=== PATIENT | female | born 1985 | race Caucasian/White ===

== ENCOUNTER 2022-08-31 11:32 | Outpatient (OUT) | payer OTHER, SELFPAY ==
[2022-08-31 11:19] LABS: Basophils Percent Auto 0.4 % (0.2-2.0); Eosinophils Absolute Auto 0.1 10^3/uL (0.0-0.7); Eosinophils Percent Auto 0.8 % (0.9-7.0); Hematocrit 37.4 % (36.0-48.0); Hemoglobin 12.3 g/dL (12.0-16.0); Immature Granulocytes Abs Auto 0.05 10^3/uL (0.00-0.03); Immature Granulocytes Pct Auto 0.5 % (0.0-0.5); Lymphocytes Percent Auto 21.4 % (20.5-60.0); Mean Corpuscular HGB Conc 32.9 g/dL (29.9-35.2); Mean Corpuscular Hemoglobin 29.9 pg (26.7-34.0); Mean Platelet Volume 11.6 fL (9.5-13.5); Monocytes Absolute Auto 0.5 10^3/uL (0.3-0.8); Monocytes Percent Auto 5.3 % (1.7-12.0); Neutrophils Absolute Auto 6.8 10^3/uL (1.4-6.5); Neutrophils Percent Auto 71.6 % (43.0-75.0); Platelet Count 248 10^3/uL (150-450); Red Blood Count 4.11 10^6/uL (4.20-5.40); White Blood Count 9.5 10^3/uL (4.0-11.0)
--- NOTE | 2022-08-31 11:34 | US_ITS ---
[place] [id number] Patient Name: TERRENCE BORGES MRN: [id number] date: 1985 Sex: F Assigned Patient Location: US Current Patient Location: US Accession/Order Number: [id number] Exam Date: 08/31/2022 11:33 Report Date: 08/31/2022 17:28 At the request of: IAN BECKHAM Procedure: US OB anatomy EXAMINATION: US OB anatomy, US OB transvaginal HISTORY: ANATOMY COMPARISON: No relevant comparison available. TECHNIQUE: Transabdominal sonographic examination was performed for obstetrical and evaluation. FINDINGS: Rodríguez intrauterine gestation position: Breech presentation, longitudinal lie Amniotic fluid volume: Subjectively normal Placenta: Posterior fundal, grade 1. Cervix: 4 cm, closed Heart rate: 131 beats minute Normal observed anatomy: Lateral ventricles, cerebellum, posterior fossa, nose/lips, orbits, four-chamber heart, diaphragm, stomach, kidneys, abdominal cord insertion, bladder, umbilical cord arteries, spine, extremities Nonvisualized: RVOT, LVOT, three-vessel cord BIOMETRY: BPD: 5.5 cm 22 weeks 6 days, 19% HC: 20.6 cm 22 weeks 5 days, 9% AC: 18.3 cm 23 weeks 1 day, 26% FL: 4.2 cm 23 weeks 6 days, 47% EFW:583.9 grams ; 30% FL/AC: 23.2 FL/BPD: 76.8 HC/AC: 1.1 GESTATIONAL AGE: Age by EDC: 23 weeks 4 days KRANTHI by EDC: 12/24/2022 Age by current US: 23 weeks 1 day KRANTHI by current US: 12/27/2022 IMPRESSION: Suboptimal visualization of the ventricular outflow tracts and three-vessel cord, otherwise normal exam *Reference: [employer] Practice Guideline for the performance of Obstetric Ultrasound Examinations, December 17, 2006. Electronically authenticated by: LEIGH FLEMING Date: 08/31/2022 17:28
--- NOTE | 2022-08-31 11:34 | US_ITS ---
[place] [id number] Patient Name: TERRENCE BORGES MRN: [id number] date: 1985 Sex: F Assigned Patient Location: US Current Patient Location: US Accession/Order Number: [id number] Exam Date: 08/31/2022 11:33 Report Date: 08/31/2022 17:28 At the request of: IAN BECKHAM Procedure: US OB transvaginal EXAMINATION: US OB anatomy, US OB transvaginal HISTORY: ANATOMY COMPARISON: No relevant comparison available. TECHNIQUE: Transabdominal sonographic examination was performed for obstetrical and evaluation. FINDINGS: Rodríguez intrauterine gestation position: Breech presentation, longitudinal lie Amniotic fluid volume: Subjectively normal Placenta: Posterior fundal, grade 1. Cervix: 4 cm, closed Heart rate: 131 beats minute Normal observed anatomy: Lateral ventricles, cerebellum, posterior fossa, nose/lips, orbits, four-chamber heart, diaphragm, stomach, kidneys, abdominal cord insertion, bladder, umbilical cord arteries, spine, extremities Nonvisualized: RVOT, LVOT, three-vessel cord BIOMETRY: BPD: 5.5 cm 22 weeks 6 days, 19% HC: 20.6 cm 22 weeks 5 days, 9% AC: 18.3 cm 23 weeks 1 day, 26% FL: 4.2 cm 23 weeks 6 days, 47% EFW:583.9 grams ; 30% FL/AC: 23.2 FL/BPD: 76.8 HC/AC: 1.1 GESTATIONAL AGE: Age by EDC: 23 weeks 4 days KRANTHI by EDC: 12/24/2022 Age by current US: 23 weeks 1 day KRANTHI by current US: 12/27/2022 IMPRESSION: Suboptimal visualization of the ventricular outflow tracts and three-vessel cord, otherwise normal exam *Reference: [employer] Practice Guideline for the performance of Obstetric Ultrasound Examinations, December 17, 2006. Electronically authenticated by: LEIGH FLEMING Date: 08/31/2022 17:28
[2022-08-31 11:39] LABS: Glucose 1 Hour 101 mg/dL
== END 2022-08-31 11:33 ==
LOC: US 11:33
PROVIDERS: PCP Student in an Organized Health Care Education/Training Program; Visit Provider Obstetrics & Gynecology
DX: Z34.92 Encounter for supervision of normal pregnancy, unspecified, second trimester (principal)
CPT/HCPCS: 36415; 76805; 76817; 82950; 85025

== ENCOUNTER 2022-09-27 11:42 | Outpatient (OUT) | payer OTHER, SELFPAY ==
--- NOTE | 2022-09-27 11:48 | US_ITS ---
The [address] [address] Patient Name: TERRENCE BORGES MRN: [id number] date: 1985 Sex: F Assigned Patient Location: US Current Patient Location: US Accession/Order Number: [id number] Exam Date: 09/27/2022 11:48 Report Date: 09/27/2022 16:32 At the request of: IAN BECKHAM Procedure: US OB incomplete anatomy EXAMINATION: US OB incomplete anatomy HISTORY: INCOMPLETE ANATOMY COMPARISON: Ultrasound OB anatomy 08/31/2022 FINDINGS: Heart rate: 127 bpm Anatomy: RVOT, LVOT, three-vessel cord seen without appreciable abnormality. GA: 27 weeks 3 days KRANTHI: 12/24/2022 US/US OB incomplete anatomy IMPRESSION: 1. Single live intrauterine . 2. Adequate visualization of the cardiac outflow tracts and three-vessel cord; no appreciable abnormality. Electronically authenticated by: PHILLIP GUAN Date: 09/27/2022 16:32
== END 2022-09-27 11:43 | disposition home or self-care (01) ==
LOC: US 11:44
PROVIDERS: PCP Student in an Organized Health Care Education/Training Program; Visit Provider Obstetrics & Gynecology
DX: Z34.92 Encounter for supervision of normal pregnancy, unspecified, second trimester (principal); Z36.2 Encounter for other antenatal screening follow-up
CPT/HCPCS: 76815

== ENCOUNTER 2022-10-31 13:54 | Outpatient (OUT) | payer OTHER, SELFPAY ==
--- NOTE | 2022-10-31 14:03 | US_ITS ---
[address] [address] Patient Name: TERRENCE BORGES MRN: [id number] date: 1985 Sex: F Assigned Patient Location: [facility] Current Patient Location: Accession/Order Number: [id number] Exam Date: 10/31/2022 14:05 Report Date: 10/31/2022 15:44 At the request of: JORDYN ESPINOZA Procedure: US OB BPP w non-stress EXAMINATION: US OB BPP w non-stress HISTORY: Third trimester Z34.93 COMPARISON: Ultrasound OB anatomy 08/31/2022 TECHNIQUE: Ultrasound biophysical profile was performed in the radiology department. BREATHING MOVEMENTS: 2.0 GROSS BODY MOVEMENTS: 2.0 TONE: 2.0 QUALITATIVE AMNIOTIC FLUID VOLUME: 2.0 PRESENTATION: Cephalic HEART RATE: 166.7 bpm bpm. AMNIOTIC FLUID VOLUME: 12.0 cm GESTATIONAL AGE: 33 weeks 1 days CONCLUSION: Total biophysical profile score 8.0. Electronically authenticated by: PHILLIP GUAN Date: 10/31/2022 15:44
[2022-10-31 14:23] VITALS: BP 107/69; PULSE 95
== END 2022-10-31 14:49 | disposition home or self-care (01) ==
LOC: US 13:54 → FBC 14:00 → US 14:14 → FBC 14:16
PROVIDERS: PCP Student in an Organized Health Care Education/Training Program; Visit Provider Midwife
DX: Z34.93 Encounter for supervision of normal pregnancy, unspecified, third trimester (principal)
CPT/HCPCS: 76818

== ENCOUNTER 2022-11-03 14:15 | Outpatient (OUT) | payer OTHER, SELFPAY ==
[2022-11-03 14:28] VITALS: BP 114/55; PULSE 89
== END 2022-11-03 14:45 | disposition home or self-care (01) ==
LOC: FBCO 14:17 → FBC 14:19
PROVIDERS: PCP Student in an Organized Health Care Education/Training Program; Visit Provider Obstetrics & Gynecology
DX: Z34.93 Encounter for supervision of normal pregnancy, unspecified, third trimester (principal)
CPT/HCPCS: 59025

== ENCOUNTER 2022-11-07 14:00 | Outpatient (OUT) | payer OTHER, SELFPAY ==
--- NOTE | 2022-11-07 14:04 | US_ITS ---
[address] [address] Patient Name: TERRENCE BORGES MRN: [id number] date: 1985 Sex: F Assigned Patient Location: US Current Patient Location: [facility] Accession/Order Number: [id number] Exam Date: 11/07/2022 14:06 Report Date: 11/07/2022 15:11 At the request of: JORDYN ESPINOZA Procedure: US OB BPP w non-stress EXAMINATION: US OB BPP w non-stress HISTORY: Third trimester Z34.93 COMPARISON: Ultrasound OB biophysical 10/31/2022 TECHNIQUE: Ultrasound biophysical profile was performed in the radiology department. BREATHING MOVEMENTS: 2.0 GROSS BODY MOVEMENTS: 2.0 TONE: 2.0 QUALITATIVE AMNIOTIC FLUID VOLUME: 2.0 PRESENTATION: CEPHALIC HEART RATE: 139.9 bpm bpm. AMNIOTIC FLUID VOLUME: 11.8 cm GESTATIONAL AGE: 34 weeks 1 days CONCLUSION: Total biophysical profile score 8.0. Electronically authenticated by: PHILLIP GUAN Date: 11/07/2022 15:11
[2022-11-07 14:29] VITALS: BP 111/63; PULSE 85
== END 2022-11-07 15:10 | disposition home or self-care (01) ==
LOC: US 14:26 → FBC 14:27
PROVIDERS: PCP Student in an Organized Health Care Education/Training Program; Visit Provider Physician Assistant
DX: Z34.93 Encounter for supervision of normal pregnancy, unspecified, third trimester (principal)
CPT/HCPCS: 76818

== ENCOUNTER 2022-11-08 10:36 | Outpatient (OUT) | payer OTHER, SELFPAY ==
--- NOTE | 2022-11-08 10:38 | US_ITS ---
[address] [address] Patient Name: TERRENCE BORGES MRN: [id number] date: 1985 Sex: F Assigned Patient Location: US Current Patient Location: US Accession/Order Number: [id number] Exam Date: 11/08/2022 10:38 Report Date: 11/08/2022 16:05 At the request of: JORDYN ESPINOZA Procedure: US OB growth EXAMINATION: US OB growth HISTORY: LGA COMPARISON: Ultrasound OB anatomy 08/31/2022 FINDINGS: Heart Rate: 140.0 bpm Number: 1.0 Position: CEPHALIC Amniotic Fluid Volume: 14.6 cm Maximum Vertical Pocket: 5.1 cm BIOMETRY: BPD: 8.2 cm cm; 33 weeks 1 days; 36% HC: 30.7 cmcm; 34 weeks 2 days; 34% AC: 28.2 cm cm; 32 weeks 2 days; 20% FL: 6.3 cm cm; 32 weeks 3 days; 16% EFW: 2005.8 grams; 19% FL/AC: 22.2 FL/BPD: 76.0 HC/AC: 1.1 GESTATIONAL AGE: Age by EDC: 33 weeks 3 days KRANTHI by EDC: 12/24/2022 Age by US: 33 weeks 0 days KRANTHI by US: 12/27/2022 US/US OB growth IMPRESSION: 1. Single live intrauterine with growth detailed above. Electronically authenticated by: PHILLIP GUAN Date: 11/08/2022 16:05
== END 2022-11-08 10:37 | disposition home or self-care (01) ==
LOC: US 10:36
PROVIDERS: PCP Student in an Organized Health Care Education/Training Program; Visit Provider Physician Assistant
DX: O36.63X0 Maternal care for excessive fetal growth, third trimester, not applicable or unspecified (principal); Z3A.33 33 weeks gestation of pregnancy
CPT/HCPCS: 76816

== ENCOUNTER 2022-11-14 13:05 | Outpatient (OUT) | payer OTHER, SELFPAY ==
--- NOTE | 2022-11-14 13:13 | US_ITS ---
[address] [address] Patient Name: TERRENCE BORGES MRN: [id number] date: 1985 Sex: F Assigned Patient Location: [facility] Current Patient Location: [facility] Accession/Order Number: [id number] Exam Date: 11/14/2022 13:14 Report Date: 11/14/2022 15:19 At the request of: IAN BECKHAM Procedure: US OB BPP w non-stress EXAMINATION: US OB BPP w non-stress HISTORY: Third trimester Z34.93 COMPARISON: Ultrasound OB biophysical 11/07/2022 TECHNIQUE: Ultrasound biophysical profile was performed in the radiology department. BREATHING MOVEMENTS: 2.0 GROSS BODY MOVEMENTS: 2.0 TONE: 2.0 QUALITATIVE AMNIOTIC FLUID VOLUME: 2.0 PRESENTATION: CEPHALIC HEART RATE: 133.7 bpm bpm. AMNIOTIC FLUID VOLUME: 13.2 cm GESTATIONAL AGE: 35 weeks 1 days CONCLUSION: Total biophysical profile score 8.0. Electronically authenticated by: PIHLLIP GUAN Date: 11/14/2022 15:19
[2022-11-14 13:41] VITALS: BP 116/73; PULSE 90
== END 2022-11-14 14:05 | disposition home or self-care (01) ==
LOC: US 13:12 → FBC 13:13
PROVIDERS: PCP Student in an Organized Health Care Education/Training Program; Visit Provider Midwife
DX: Z34.93 Encounter for supervision of normal pregnancy, unspecified, third trimester (principal)
CPT/HCPCS: 76818

== ENCOUNTER 2022-11-21 13:00 | Outpatient (OUT) | payer OTHER, SELFPAY ==
--- NOTE | 2022-11-21 13:06 | US_ITS ---
[address] [address] Patient Name: TERRENCE BORGES MRN: [id number] date: 1985 Sex: F Assigned Patient Location: [facility] Current Patient Location: Accession/Order Number: [id number] Exam Date: 11/21/2022 13:08 Report Date: 11/21/2022 17:37 At the request of: IAN BECKHAM Procedure: US OB BPP w non-stress EXAMINATION: US OB BPP w non-stress HISTORY: Third trimester Z34.93 COMPARISON: No relevant comparison available. TECHNIQUE: Ultrasound biophysical profile was performed in the radiology department. FINDINGS: BREATHING MOVEMENTS: 0.0 GROSS BODY MOVEMENTS: 2.0 TONE: 2.0 QUALITATIVE AMNIOTIC FLUID VOLUME: 2.0 PRESENTATION: CEPHALIC HEART RATE: 129.2 bpm H.B./min AMNIOTIC FLUID VOLUME: 12.3 cm cm GESTATIONAL AGE: 36 weeks 1 days CONCLUSION: Total biophysical profile score: 6.0 Electronically authenticated by: LEIGH FLEMING Date: 11/21/2022 17:37
[2022-11-21 13:55] VITALS: BP 111/66; PULSE 83
== END 2022-11-21 14:28 | disposition home or self-care (01) ==
LOC: US 13:09 → FBC 13:13
PROVIDERS: PCP Student in an Organized Health Care Education/Training Program; Visit Provider Obstetrics & Gynecology
DX: Z34.93 Encounter for supervision of normal pregnancy, unspecified, third trimester (principal)
CPT/HCPCS: 76818

== ENCOUNTER 2022-11-24 12:46 | Outpatient (OUT) | payer OTHER, SELFPAY ==
--- NOTE | 2022-11-24 12:58 | US_ITS ---
[address] [address] Patient Name: TERRENCE BORGES MRN: [id number] date: 1985 Sex: F Assigned Patient Location: [facility] Current Patient Location: [facility] Accession/Order Number: [id number] Exam Date: 11/24/2022 13:30 Report Date: 11/24/2022 13:54 At the request of: MIKEY CAREY Procedure: US OB BPP w non-stress EXAMINATION: US OB BPP w non-stress HISTORY: LGA COMPARISON: Ultrasound OB biophysical 11/21/2022 TECHNIQUE: Ultrasound biophysical profile was performed in the radiology department. BREATHING MOVEMENTS: 2.0 GROSS BODY MOVEMENTS: 2.0 TONE: 2.0 QUALITATIVE AMNIOTIC FLUID VOLUME: 2.0 PRESENTATION: CEPHALIC HEART RATE: 166.7 bpm bpm. AMNIOTIC FLUID VOLUME: 13.7 cm GESTATIONAL AGE: 36 weeks 4 days CONCLUSION: Total biophysical profile score 8.0. Electronically authenticated by: PHILLIP GUAN Date: 11/24/2022 13:54
[2022-11-24 13:14] VITALS: BP 120/79; PULSE 75
== END 2022-11-24 13:45 | disposition home or self-care (01) ==
LOC: FBCO 12:52 → FBC 12:56
PROVIDERS: PCP Student in an Organized Health Care Education/Training Program; Visit Provider Midwife
DX: O36.63X0 Maternal care for excessive fetal growth, third trimester, not applicable or unspecified (principal); Z3A.36 36 weeks gestation of pregnancy
CPT/HCPCS: 76818

== ENCOUNTER 2022-11-28 11:15 | Outpatient (OUT) | payer OTHER, SELFPAY ==
--- NOTE | 2022-11-28 13:02 | US_ITS ---
[address] [address] Patient Name: TERRENCE BORGES MRN: [id number] date: 1985 Sex: F Assigned Patient Location: [facility] Current Patient Location: Accession/Order Number: [id number] Exam Date: 11/28/2022 13:05 Report Date: 11/29/2022 07:14 At the request of: IAN BECKHAM Procedure: US OB BPP w non-stress EXAMINATION: US OB BPP w non-stress HISTORY: Third trimester Z34.93 COMPARISON: No relevant comparison available. TECHNIQUE: Ultrasound biophysical profile was performed in the radiology department. non-reactive stress testing was performed by nursing staff in the birthing center. FINDINGS: BREATHING MOVEMENTS: 2.0 GROSS BODY MOVEMENTS: 2.0 TONE: 2.0 QUALITATIVE AMNIOTIC FLUID VOLUME: 2.0 PRESENTATION: CEPHALIC HEART RATE: 130.4 bpm H.B./min AMNIOTIC FLUID VOLUME: 10.5 cm cm GESTATIONAL AGE: 37 weeks 1 days CONCLUSION: Total biophysical profile score: 8.0 Electronically authenticated by: LEIGH FLEMING Date: 11/29/2022 07:14
[2022-11-28 13:40] VITALS: BP 126/79; PULSE 80
== END 2022-11-28 14:25 | disposition home or self-care (01) ==
LOC: US 11:40 → FBC 13:09
PROVIDERS: PCP Student in an Organized Health Care Education/Training Program; Visit Provider Obstetrics & Gynecology
DX: Z34.93 Encounter for supervision of normal pregnancy, unspecified, third trimester (principal)
CPT/HCPCS: 76818

== ENCOUNTER 2022-11-30 20:07 | Outpatient (REF) | payer OTHER, SELFPAY | END 2022-11-30 20:08 | disposition home or self-care (01) | LOC: LAB 20:07 | PROVIDERS: PCP Student in an Organized Health Care Education/Training Program; Visit Provider Obstetrics & Gynecology | DX: Z34.93 Encounter for supervision of normal pregnancy, unspecified, third trimester (principal) | CPT/HCPCS: 87081 ==

== ENCOUNTER 2022-12-01 09:05 | Outpatient (OUT) | payer OTHER, SELFPAY ==
[2022-12-01 12:59] VITALS: BP 137/84; PULSE 90
== END 2022-12-01 13:30 | disposition home or self-care (01) ==
LOC: FBCO 09:06 → FBC 12:55
PROVIDERS: PCP Student in an Organized Health Care Education/Training Program; Visit Provider Obstetrics & Gynecology
DX: Z34.93 Encounter for supervision of normal pregnancy, unspecified, third trimester (principal)
CPT/HCPCS: 59025

== ENCOUNTER 2022-12-05 13:18 | Outpatient (OUT) | payer OTHER, SELFPAY ==
--- NOTE | 2022-12-05 12:59 | US_ITS ---
[address] [address] Patient Name: TERRENCE BORGES MRN: [id number] date: 1985 Sex: F Assigned Patient Location: US Current Patient Location: Accession/Order Number: [id number] Exam Date: 12/05/2022 13:00 Report Date: 12/05/2022 16:12 At the request of: IAN BECKHAM Procedure: US OB BPP w non-stress EXAMINATION: US OB BPP w non-stress HISTORY: Third trimester Z34.93 COMPARISON: Ultrasound OB biophysical 11/28/2022 TECHNIQUE: Ultrasound biophysical profile was performed in the radiology department. BREATHING MOVEMENTS: 2.0 GROSS BODY MOVEMENTS: 2.0 TONE: 2.0 QUALITATIVE AMNIOTIC FLUID VOLUME: 2.0 PRESENTATION: CEPHALIC HEART RATE: 140.6 bpm bpm. AMNIOTIC FLUID VOLUME: 13.3 cm GESTATIONAL AGE: 37 weeks 2 days CONCLUSION: Total biophysical profile score 8.0. Electronically authenticated by: PHILLIP GUAN Date: 12/05/2022 16:12
[2022-12-05 13:23] VITALS: BP 120/78; PULSE 110
== END 2022-12-05 13:50 | disposition home or self-care (01) ==
LOC: US 13:19 → FBC 13:20
PROVIDERS: PCP Student in an Organized Health Care Education/Training Program; Visit Provider Obstetrics & Gynecology
DX: Z34.93 Encounter for supervision of normal pregnancy, unspecified, third trimester (principal)
CPT/HCPCS: 76818

== ENCOUNTER 2022-12-15 08:27 | Outpatient (OUT) | payer OTHER, SELFPAY ==
--- NOTE | 2022-12-15 08:26 | US_ITS ---
[address] [address] Patient Name: TERRENCE BORGES MRN: [id number] date: 1985 Sex: F Assigned Patient Location: [facility] [place] Current Patient Location: Accession/Order Number: [id number] Exam Date: 12/15/2022 08:27 Report Date: 12/15/2022 15:11 At the request of: IAN BECKHAM Procedure: US OB BPP w non-stress EXAMINATION: US OB BPP w non-stress HISTORY: THIRD TRIMESTER Z34.93 COMPARISON: Ultrasound OB biophysical 12/05/2022 TECHNIQUE: Ultrasound biophysical profile was performed in the radiology department. BREATHING MOVEMENTS: 2.0 GROSS BODY MOVEMENTS: 2.0 TONE: 2.0 QUALITATIVE AMNIOTIC FLUID VOLUME: 2.0 PRESENTATION: CEPHALIC HEART RATE: 146.7 bpm bpm. AMNIOTIC FLUID VOLUME: 18.5 cm GESTATIONAL AGE: 38 weeks 5 days CONCLUSION: Total biophysical profile score 8.0. Electronically authenticated by: PHILLIP GUAN Date: 12/15/2022 15:11
== END 2022-12-15 09:27 | disposition home or self-care (01) ==
LOC: FBCO 08:28 → FBC 08:51
PROVIDERS: PCP Student in an Organized Health Care Education/Training Program; Visit Provider Obstetrics & Gynecology
DX: O36.63X0 Maternal care for excessive fetal growth, third trimester, not applicable or unspecified (principal); Z3A.38 38 weeks gestation of pregnancy
CPT/HCPCS: 76818

== ENCOUNTER 2022-12-19 05:44 | Inpatient (IN) | payer OTHER, SELFPAY ==
[2022-12-19] VITALS (42 sets, daily range): BP systolic 82–130; BP diastolic 52–88; PULSE 67–109; RESP 12–20; TEMP 36.1–37.1; O2SAT 97–99
[2022-12-19] MEDS: 0.9 % SODIUM CHLORIDE 1,000 ML 1000 ML IV ×2 (06:28→10:47)
[2022-12-19 06:35] LABS: Basophils Percent Auto 0.3 % (0.2-2.0); Eosinophils Absolute Auto 0.1 10^3/uL (0.0-0.7); Eosinophils Percent Auto 1.1 % (0.9-7.0); Hematocrit 35.3 % (36.0-48.0); Hemoglobin 11.6 g/dL (12.0-16.0); Immature Granulocytes Abs Auto 0.03 10^3/uL (0.00-0.03); Immature Granulocytes Pct Auto 0.3 % (0.0-0.5); Lymphocytes Absolute Auto 2.5 10^3/uL (1.2-3.8); Mean Corpuscular HGB Conc 32.9 g/dL (29.9-35.2); Mean Corpuscular Hemoglobin 30.3 pg (26.7-34.0); Mean Corpuscular Volume 92.2 fL (81.0-99.0); Mean Platelet Volume 11.5 fL (9.5-13.5); Monocytes Absolute Auto 0.6 10^3/uL (0.3-0.8); Neutrophils Absolute Auto 5.7 10^3/uL (1.4-6.5); Neutrophils Percent Auto 63.3 % (43.0-75.0); Platelet Count 250 10^3/uL (150-450); Red Blood Count 3.83 10^6/uL (4.20-5.40); Red Cell Distribution Width 13.5 % (11.0-15.0); White Blood Count 8.9 10^3/uL (4.0-11.0)
[2022-12-19 06:37] LABS: Bilirubin Urine NEGATIVE (NEGATIVE); Blood Urine SMALL (NEGATIVE); Clarity Urine CLEAR (CLEAR); Color Urine LT. YELLOW (YELLOW); Glucose Urine UA NEGATIVE (NEGATIVE); Ketones Urine NEGATIVE (NEGATIVE); Leukocyte Esterase Urine NEGATIVE (NEGATIVE); Nitrite Urine NEGATIVE (NEGATIVE); Protein Urine NEGATIVE (NEG/TRACE); Urobilinogen Urine 0.2 EU/dL (0.2-1.0); pH Urine 6.5 (5.0-9.0)
[2022-12-19 06:43] LABS: Bacteria Urine NONE SEEN #/HPF (NONE SEEN); Cast Seen? NONE SEEN #/LPF (NONE SEEN); Crystals Seen? None Seen #/HPF (None Seen); Mucus Urine SMALL (NONE SEEN); RBC Urine 0-2 #/HPF (0-2); Squamous Epithelial Cell Urine FEW #/LPF (NONE/RARE)
[2022-12-19 06:44] LABS: Urine Culture Indicated NO
[2022-12-19 06:45] LABS: Amphetamine Screen Urine NEGATIVE (NEGATIVE); Barbiturates Screen Urine NEGATIVE (NEGATIVE); Benzodiazepines Screen Urine NEGATIVE (NEGATIVE); Buprenorphine Screen Urine NEGATIVE (NEGATIVE); Cannabinoid Screen Urine NEGATIVE (NEGATIVE); Cocaine Screen Urine NEGATIVE (NEGATIVE); Methadone Screen Urine NEGATIVE (NEGATIVE); Methamphetamines Screen Urine NEGATIVE (NEGATIVE); Opiate Screen Urine NEGATIVE (NEGATIVE); Oxycodone Screen Urine NEGATIVE (NEGATIVE); Phencyclidine Screen Urine NEGATIVE (NEGATIVE); Tricyclic Antidepressant Urine NEGATIVE (NEGATIVE)
[2022-12-19] MEDS: CLINDAMYCIN PHOSPHATE/D5W 900 MG/50 ML PIGGYBACK 100 MG IV ×2 (07:06→12:47)
[2022-12-19] MEDS: 0.9 % SODIUM CHLORIDE 1,000 ML 125 ML IV (07:07)
[2022-12-19] MEDS: LACTATED RINGER'S SOLUTION 1,000 ML 50 ML IV (07:55)
--- NOTE | 2022-12-19 08:17 | PM.OBPRCCS ---
Procedure Pre-op/Post-op diagnoses: Pre-Op/Post-Op Diagnoses Operation Date: 12/19/22 07:00 <No data on this case meets the specified criteria> Procedure: Procedures Operation Date: 12/19/22 07:00 Actual Procedure Side Surgeon p Repeat with Salpingectomy Bilateral Hima Gandhi DO Leveler Helper: Hima Gandhi Estimated blood loss (mL): 575 Disposition: PACU Anesthesia type: Spinal
--- NOTE | 2022-12-19 08:18 | PM.ONB ---
Brief Operative Note Date of procedure: 12/19/22 Pre-op diagnosis: iup at 39wks, previous c/s, desires sterilization Post-op diagnosis: same as pre-op Procedure: NAME OF PROCEDURE: [ section with bilateral salpingectomy ] PROCEDURE: Patient was taken back to the Operating Room where she was given a spinal anesthesia with Duramorph without difficulty. She was prepped and draped in the normal sterile fashion. A Pfannenstiel skin incision was then made 2?cm above the symphysis pubis and carried down to underlying rectus fascia using a Bovie. The fascia was incised in the midline and extended laterally using Hoang scissors. Two Stephen clamps were placed on the superior aspect of the fascia and dissected off the underlying rectus muscles. The same was performed on the inferior aspect as well. The muscles were then in the midline. Peritoneum was identified and entered bluntly. The peritoneum was then extended superiorly and inferiorly with good visualization of the bladder. The bladder blade was inserted. Vesicouterine peritoneum was identified, tented up, and entered with Metzenbaum scissors. A bladder flap was then created digitally. The bladder blade was reinserted. A low transverse incision was made on the patient's uterus and extended laterally digitally. The infant was then delivered atraumatically after the bladder blade was removed in the cephalic position. The cord was clamped and cut. Cord blood was obtained. The infant was handed off to awaiting team. The patient's placenta was spontaneously delivered. The uterus was then exteriorized. The uterus was cleared of all clots and debris. The bladder blade was reinserted. The patient's uterine incision was closed using #0 Vicryl in a running lock fashion. Excellent hemostasis was assured.? The rt tube was identified and grasped with babock, the ligasure was used to transect and ligate the tube in its entirity, this was done on the contralateral side as well. The uterus was then returned to the patient's abdomen. The patient's abdomen was copiously irrigated using warm saline. Peritoneal gutters were cleared of all clots and debris. Again excellent hemostasis was assured. The patient's fascia was closed using #0 Vicryl in a running fashion. The patient's skin was closed using 4-0 Vicryl subcuticularly. The patient tolerated the procedure well. Sponge, lap, and needle counts were correct x2. The patient was taken to the Recovery Room in stable condition. Anesthesia: spinal Surgeon: Hima Gandhi Director Of Securities And Real Estate: Chiquita Liu Estimated blood loss (mL): 575 Condition: stable Disposition: floor
[2022-12-19] MEDS: OXYTOCIN/0.9 % SODIUM CHLORIDE 20 UNITS/1,000 ML PLAST..BAG 200 UNIT IV (08:42)
[2022-12-19] MEDS: KETOROLAC TROMETHAMINE 30 MG/ML VIAL IVP ×3 (09:13→21:55)
[2022-12-19] MEDS: OXYCODONE HCL/ACETAMINOPHEN 5MG/325MG 2 TAB PO ×2 (10:48→18:16)
--- NOTE | 2022-12-19 13:02 | PC.NURSE ---
1145 pericare done pad changed for mod rubra, feels tingly to feet but able to turn in bed and lift bottom
--- NOTE | 2022-12-19 13:03 | PC.NURSE ---
3483 recovery resumed by this RN, holds baby, takes ice water and crackers, scds in place and using pep appropriately, graf draining clear yellow urine
[2022-12-19] MEDS: ONDANSETRON PF 4 MG/2 ML VIAL IV (13:33)
--- NOTE | 2022-12-19 13:40 | PC.NURSE ---
vomits moderate amount emesis, nonproductive cough accompanies
--- NOTE | 2022-12-19 16:49 | PC.NURSE ---
1545 Escobedo catheter removed, iv to saline lock after medicated with toradol and up to BR, pericare reviewed and up in room
--- NOTE | 2022-12-19 18:25 | PC.NURSE ---
1815 Up in room, requests pain management
[2022-12-19] MEDS: ENOXAPARIN SODIUM 40 MG/0.4 ML SYRINGE SUBQ (20:44)
[2022-12-20] VITALS (9 sets, daily range): BP systolic 108–133; BP diastolic 68–84; PULSE 67; RESP 16; TEMP 36.2–36.7; O2SAT 97
[2022-12-20] MEDS: OXYCODONE HCL/ACETAMINOPHEN 5MG/325MG 2 TAB PO ×4 (00:25→18:00)
[2022-12-20] MEDS: KETOROLAC TROMETHAMINE 30 MG/ML VIAL IVP ×4 (03:53→22:12)
[2022-12-20 06:00] LABS: Basophils Percent Auto 0.3 % (0.2-2.0); Eosinophils Absolute Auto 0.2 10^3/uL (0.0-0.7); Eosinophils Percent Auto 1.8 % (0.9-7.0); Hematocrit 31.2 % (36.0-48.0); Hemoglobin 9.9 g/dL (12.0-16.0); Immature Granulocytes Abs Auto 0.03 10^3/uL (0.00-0.03); Immature Granulocytes Pct Auto 0.3 % (0.0-0.5); Lymphocytes Absolute Auto 2.7 10^3/uL (1.2-3.8); Lymphocytes Percent Auto 29.4 % (20.5-60.0); Mean Corpuscular HGB Conc 31.7 g/dL (29.9-35.2); Mean Corpuscular Hemoglobin 29.8 pg (26.7-34.0); Mean Platelet Volume 11.6 fL (9.5-13.5); Monocytes Absolute Auto 0.8 10^3/uL (0.3-0.8); Monocytes Percent Auto 8.6 % (1.7-12.0); Neutrophils Absolute Auto 5.4 10^3/uL (1.4-6.5); Neutrophils Percent Auto 59.6 % (43.0-75.0); Platelet Count 204 10^3/uL (150-450); Red Blood Count 3.32 10^6/uL (4.20-5.40); Red Cell Distribution Width 13.3 % (11.0-15.0); White Blood Count 9.1 10^3/uL (4.0-11.0)
--- NOTE | 2022-12-20 07:31 | PM.OBPN ---
OB - PN: Subj Subjective Patient comments: no complaints [place] status: doing well Exam Constitutional Vital Signs, click to edit/add: Last Vital Signs Temp 97.2 F L 12/20/22 00:20 Pulse 67 12/20/22 00:20 Resp 16 12/20/22 04:54 BP 117/68 12/20/22 04:53 Pulse Ox 97 12/20/22 04:50 O2 Del Method Room Air 12/20/22 04:50 Documenting provider has reviewed patient's vital signs: yes Common normals: no apparent distress Respiratory Common normals: normal respiratory effort and clear to auscultation bilaterally Cardio Common normals: regular rate and regular rhythm GI Common normals: Normal to inspection, nondistended, normoactive bowel sounds present Extremity Common normals: no clubbing, cyanosis or edema and no calf tenderness Results Labs Labs: Short CBC 12/20/22 Range/Units 05:48 WBC 9.1 (4.0-11.0) 10^3/uL Hgb 9.9 L (12.0-16.0) g/dL Hct 31.2 L (36.0-48.0) % Plt Count 204 (150-450) 10^3/uL OB - PN: A/P Plan - day: 1 Plan: routine postop care Time Spent with Patient Time: Total time spent is greater than 50% in coordination of care (as documented) at patient's floor/unit and/or counseling patient: Total time spent with greater than 50% in coordination of care (as documented) at patient's floor/unit and/or counseling patient: less than 15 minutes
[2022-12-20] MEDS: DOCUSATE SODIUM 100 MG CAPSULE PO (08:29)
[2022-12-20] MEDS: ENOXAPARIN SODIUM 40 MG/0.4 ML SYRINGE SUBQ (22:13)
[2022-12-21] MEDS: OXYCODONE HCL/ACETAMINOPHEN 5MG/325MG 2 TAB PO ×3 (00:19→10:54)
[2022-12-21 00:24] VITALS: BP 127/74; TEMP 36.5
[2022-12-21 00:25] VITALS: BP 127/74; PULSE 76; RESP 16; TEMP 36.5
[2022-12-21] MEDS: KETOROLAC TROMETHAMINE 30 MG/ML VIAL IVP (04:04)
--- NOTE | 2022-12-21 07:21 | W.PC.ACHO ---
Registration Status: ADM IN Primary Language: Mexican Preferred Language: Mexican Active Medications Generic Name Dose Route Start Last Admin Trade Name Freq PRN Reason Stop Dose Admin Al Hydroxide/Mg Hydroxide 2,400 mg 12/19/22 08:15 Magnesium Hydroxide 2,400 Mg/10 Ml Oral.Susp PO Q6H PRN Dyspepsia Diphtheria/Pertussis/Tetanus Vacc 0.5 ml 12/21/22 09:00 Adacel Diph,Pertuss(Acell),Tet Vac/Pf 0.5 Ml Adult Syringe IM 12/21/22 09:01 .ONCE ONE Docusate Sodium 100 mg 12/20/22 09:00 12/20/22 23:11 Docusate Sodium 100 Mg Capsule PO Not Given BID ELIZA Enoxaparin Sodium 40 mg 12/19/22 21:00 12/20/22 22:13 Enoxaparin Sodium 40 Mg/0.4 Ml Syringe SUBQ 40 mg Q24H ELIZA Administration Hydromorphone HCl 0.5 mg 12/19/22 08:16 Hydromorphone Hcl 0.5 Mg/0.5 Ml Syringe IV Q5M PRN Pain Sodium Chloride 1,000 mls @ 125 mls/hr 12/19/22 06:00 12/19/22 07:07 Sodium Chloride 0.9% 1,000 Ml IV 125 mls/hr .Q8H ELIZA Administration Lactated Ringer's 1,000 mls @ 50 mls/hr 12/19/22 12:00 12/19/22 07:55 Lactated Ringers IV 50 mls/hr .Q20H ELIZA Administration Ibuprofen 800 mg 12/19/22 08:15 Ibuprofen 400 Mg Tablet PO Q8H PRN Pain Ketorolac Tromethamine 30 mg 12/19/22 08:15 12/21/22 04:04 Ketorolac Tromethamine 30 Mg/Ml Vial IVP 12/21/22 08:16 30 mg Q6H PRN Administration Pain Measles/Mumps/Rubella Vaccine Live 0.5 ml 12/21/22 09:00 Measles,Mumps,Rubella Vacc/Pf 0.5 Ml Vial SQ 12/21/22 09:01 .ONCE ONE Ondansetron HCl 4 mg 12/19/22 08:15 12/19/22 13:33 Ondansetron Pf 4 Mg/2 Ml Vial IV 4 mg Q6H PRN Administration Nausea And Vomiting Ondansetron HCl 4 mg 12/19/22 08:15 Ondansetron 4 Mg Rapdis Tablet PO Q6H PRN Nausea And Vomiting Oxycodone/Acetaminophen 1 tab 12/19/22 08:15 Oxycodone Hcl/Acetaminophen 5mg/325mg PO Q4H PRN Pain Scale 4-6 Oxycodone/Acetaminophen 2 tab 12/19/22 08:15 12/21/22 06:57 Oxycodone Hcl/Acetaminophen 5mg/325mg PO 2 tab Q4H PRN Administration Pain Scale 7-10 Senna 17.2 mg 12/19/22 20:00 Sennosides 8.6 Mg Tablet PO QHS PRN Constipation Simethicone 80 mg 12/19/22 08:15 Simethicone 80 Mg Tab.Chew PO QID PRN Abdominal Distention Varicella Virus Vaccine Live 0.5 ml 12/21/22 09:00 Varicella Vaccine Live/Pf 0.5 Ml Vial SUBQ 12/21/22 09:01 .ONCE ONE Respiratory Oxygen Delivery Method Room Air Cardiology Heart Sounds Strong,Regular Heart Sounds Strong,Regular Bowels Date of Last Bowel Movement 12/20/22 Renal Bladder Pattern Continent Bladder Pattern Continent
[2022-12-21 07:54] VITALS: BP 130/80; RESP 18; TEMP 36.5; O2SAT 97
[2022-12-21] MEDS: DOCUSATE SODIUM 100 MG CAPSULE PO (10:53)
--- NOTE | 2022-12-21 12:46 | PM.OBDS ---
DS: Providers Provider Date of admission: 12/19/22 05:44 Primary care physician: FERNY KLINE Admitting clinician: Hima Gandhi Attending physician on admission: Hima Gandhi Consults: 12/19/22 Consult to Anesthesiology Routine Consulting Provider: Avni Kinsey Reason for consultation: c/s Has provider been notified: Yes Discharging clinician: Shannon Hays Anticipated date of discharge: 12/21/22 DS: Diagnosis Discharge Diagnosis (1) Delivery by section using transverse incision of lower segment of uterus: Assessment and plan: EXAM NONFOCAL, VSS NORMAL, INSTRUCTIONS GIVEN, ALL QUESTIONS ANSWERED WITH STATED UNDERSTANDING Plan DISCHARGE TO HOME OB - DS: Summary Hospital Course Hospital Course: UNCOMPLICATED Time spent discussing smoking cessation with patient: 3 to 10 minutes Peripartum Data - Procedures: Procedures Operation Date: 12/19/22 07:00 Actual Procedure Side Surgeon p Repeat with Salpingectomy Bilateral Hima Gandhi, DO Peripartum Data - Vaginal Delivery Procedures: Procedures Operation Date: 12/19/22 07:00 Actual Procedure Side Surgeon p Repeat with Salpingectomy Bilateral Hima Gandhi, DO Complications complications: none Infant Delivery method: elective section Gender: female Discharge plan: home Status at Discharge Cognitive/behavioral status at discharge: NORMAL Functional status at discharge: independent ambulation Time Spent with Patient Time attestation: Total time spent providing and/or coordinating discharge services: Time spent: less than 30 minutes Exam Constitutional Vital Signs, click to edit/add: Last Vital Signs Temp 97.7 F 12/21/22 07:54 Pulse 76 12/21/22 00:25 Resp 18 12/21/22 07:54 BP 130/80 12/21/22 07:54 Pulse Ox 97 12/21/22 07:54 O2 Del Method Room Air 12/20/22 15:55 Documenting provider has reviewed patient's vital signs: yes Common normals: no apparent distress, oriented x3, no limitations, healthy appearing, alert and well nourished HENPR Common normals: normocephalic and head/scalp atraumatic Eye Pupil: PERRL and accommodation reflex normal Neck & C-Spine Common normals: full ROM Respiratory Common normals: normal respiratory effort Cardio Common normals: regular rate and regular rhythm GI Common normals: Normal to inspection, nondistended, normoactive bowel sounds present Common normals: no CVA tenderness Extremity Common normals: normal to inspection, full ROM and no calf tenderness Neuro Common normals: oriented x3, CN's II-XII intact bilaterally, moves all extremities, no focal motor deficits and no sensory deficits noted Psych Common normals: mental status grossly normal, thought process normal, cooperative, affect normal and speech normal Discharge Plan Discharge Disposition: Home, Self-Care Condition: Good Assessment: AFEBRILE, VSS. AMBULATING. PASSED STOOL. EATING NORMALLY. INCISION DRY AND INTACT. MINIMAL DEPENDENT EDEMA. BOTTLE FEEDING. CLINIAL EXAM NONFOCAL. REQUESTING DISCHARGE. Health Concerns: NONE Plan of Treatment: DISCHARGE HOME Discharge Medications: Continued WesTab Plus 27 mg iron- 1 mg tablet PO Q24H Activity: resume usual activities as tolerated Activity Detail: WALKING ONLY FORM OF EXERCISE. ONLY LIFT BABY. LIMIT TRAVEL IN CAR. Diet: regular diet Activity Restrictions/Additional Instructions: STATED ABOVE Forms: Portal Instructions Follow Up Appointments: MAKE AN APPOINTMENT FOR INCISION CHECK NEXT WEEK WITH DR. GANDHI Discharge location: HOME
[2022-12-21] MEDS: IBUPROFEN 400 MG TABLET 800 MG PO (13:57)
--- NOTE | 2022-12-21 14:32 | PC.NURSE ---
1415 IV catheter removed without incident from right forearm.
[2022-12-21 17:17] VITALS: O2SAT 98
== END 2022-12-21 14:25 | disposition home or self-care (01) | DRG 539 ==
PROVIDERS: Admitting Provider Obstetrics & Gynecology; PCP Student in an Organized Health Care Education/Training Program; Visit Provider Obstetrics & Gynecology
PROC: 10D00Z1 Extraction of Products of Conception, Low, Open Approach (ICD-10-PCS; CPT 59514; principal; 2022-12-19 07:00)
DX: O34.211 Maternal care for low transverse scar from previous cesarean delivery (principal); O99.334 Smoking (tobacco) complicating childbirth; F17.210 Nicotine dependence, cigarettes, uncomplicated; Z3A.39 39 weeks gestation of pregnancy; Z37.0 Single live birth; Z82.49 Family history of ischemic heart disease and other diseases of the circulatory system; Z88.1 Allergy status to other antibiotic agents; Z91.018 Allergy to other foods
CPT/HCPCS: 36415; 36416; 80307; 81001; 82247; 82248; 85025; 86850; 86900; 86901; 88302; 94667; 94668; 94761; 96372; 96374; 96376

== ENCOUNTER 2023-01-11 12:57 | Outpatient (OUT) | payer OTHER, SELFPAY | END 2023-01-11 12:57 | disposition home or self-care (01) | LOC: US 12:57 | PROVIDERS: PCP Student in an Organized Health Care Education/Training Program; Visit Provider Obstetrics & Gynecology | DX: Z53.8 Procedure and treatment not carried out for other reasons (principal) ==

== ENCOUNTER 2023-01-19 10:58 | Outpatient (OUT) | payer OTHER, SELFPAY ==
--- NOTE | 2023-01-19 16:21 | XR_ITS ---
The [address] [address] Patient Name: TERRENCE BORGES MRN: [id number] date: 1985 Sex: F Assigned Patient Location: [facility] Current Patient Location: Accession/Order Number: [id number] Exam Date: 01/19/2023 16:15 Report Date: 01/22/2023 07:33 At the request of: TERRENCE WHYTE Procedure: XR abdomen 1V EXAMINATION: XR abdomen 1V HISTORY: Kidney Stone COMPARISON: No relevant comparison available. FINDINGS: KIDNEY/URETER - RIGHT: Mid pole nephrolith KIDNEY/URETER - LEFT: Multiple nephroliths PELVIS: No visible ureteral calcifications. Any visible calcifications favor phleboliths. BOWEL: No abnormal dilation or deviation. BONES: No acute abnormality. OTHER: Negative. No abnormal gaseous collections. XR/XR abdomen 1V IMPRESSION: Bilateral nephrolithiasis Electronically authenticated by: LEIGH FLEMING Date: 01/22/2023 07:33
== END 2023-01-19 10:59 | disposition home or self-care (01) ==
LOC: RAD 10:59
PROVIDERS: PCP Student in an Organized Health Care Education/Training Program; Visit Provider Physician Assistant
DX: N20.0 Calculus of kidney (principal)
CPT/HCPCS: 74018

== ENCOUNTER 2023-03-05 09:19 | Outpatient (OUT) | payer OTHER, SELFPAY ==
--- NOTE | 2023-03-05 09:55 | ECG_ITS ---
The 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
--- NOTE | 2023-03-05 10:03 | P.GSHP_ITS ---
History of Present Illness History of Present Illness Chief complaint: bilateral kidney stones Narrative: Patient presents for preadmission testing. Patient states she's had intermittent low back pain and a long history of chronic urinary tract infection, kidney stones, and urethral stricture. Patient denies abdominal pain, nausea, vomiting, fever, dysuria, hematuria, or any other complaints Review of Systems ROS Narrative REVIEW OF SYSTEMS: Negative except as stated in HPI, ten or more systems reviewed. Constitutional: No fever , chills, weakness ENT: No sore throat or epistaxis Cardiovascular: No edema, chest pain, palpitations, or activity intolerance Respiratory: No shortness of breath, cough, or wheezing Musculoskeletal: No joint pain or swelling Gastrointestinal: No abdominal pain, constipation, diarrhea, or vomiting Genitourinary: No dysuria or hematuria Neurological: No numbness, tingling, weakness, or headache Psychiatric: No mood changes [facility] Medical History (Updated 03/05/23 @ 09:49 by Radha Farley NP) History of blood transfusion (2015) ?Z92.89 - Personal history of other medical treatment (ICD-10) PTSD (post-traumatic stress disorder) ?F43.10 - Post-traumatic stress disorder, unspecified (ICD-10) Depression ?F32.A - Depression, unspecified (ICD-10) Anxiety ?F41.9 - Anxiety disorder, unspecified (ICD-10) COVID-19 ?U07.1 - COVID-19 (ICD-10) Migraine ?G43.909 - Migraine, unspecified, not intractable, without status migrainosus (ICD-10) Meningitis (1990) ?G03.9 - Meningitis, unspecified (ICD-10) Sepsis (2016) ?A41.9 - Sepsis, unspecified organism (ICD-10) Ovarian cyst ?N83.209 - Unspecified ovarian cyst, unspecified side (ICD-10) Dilation of urethra ?N36.8 - Other specified disorders of urethra (ICD-10) Urinary tract infection ?N39.0 - Urinary tract infection, site not specified (ICD-10) Ureteral stricture ?N13.5 - Crossing vessel and stricture of ureter without hydronephrosis (ICD- 10) Stress incontinence ?N39.3 - Stress incontinence (female) (male) (ICD-10) Renal mass ?N28.89 - Other specified disorders of kidney and ureter (ICD-10) Other urethral stricture, female ?N35.82 - Other urethral stricture, female (ICD-10) Nocturia ?R35.1 - Nocturia (ICD-10) Hydronephrosis ?N13.30 - Unspecified hydronephrosis (ICD-10) Chronic cystitis ?N30.20 - Other chronic cystitis without hematuria (ICD-10) Kidney stones ?N20.0 - Calculus of kidney (ICD-10) Surgical History (Updated 03/05/23 @ 09:49 by Radha Farley NP) History of section ?Z98.891 - History of uterine scar from previous surgery (ICD-10) History of section ?Z98.891 - History of uterine scar from previous surgery (ICD-10) H/O exploratory laparotomy ?Z98.890 - Other specified postprocedural states (ICD-10) S/P ureteral stent placement (10/26/14) ?Z96.0 - Presence of urogenital implants (ICD-10) H/O cystoscopy (03/08/15) ?Z98.890 - Other specified postprocedural states (ICD-10) H/O cystoscopy (04/14/15) ?Z98.890 - Other specified postprocedural states (ICD-10) H/O nephrostomy (05/11/15) H/O section ?Z98.891 - History of uterine scar from previous surgery (ICD-10) Family History (Updated 03/05/23 @ 09:49 by Radha Farley NP) Other Family history of breast cancer Family history of colon cancer Family history of diabetes mellitus Family history of hypertension Family history of myocardial infarction Family history of stroke Social History (Updated 03/05/23 @ 09:44 by Radha Farley NP) Within the past year, how often did you have a drink containing alcohol: 2-4 times a month Smoking status: Current every day smoker What tobacco products do you use: cigarettes Cigarettes per day: 3 Years smoked: 5 Smoking pack-years: 0.75 Highest level of school completed/degree received: high school graduate Meds Home Medications and Allergies Home Medications Medication Instructions Recorded Confirmed Type apple cider vinegar 600 mg capsule mg PO 03/05/23 History multivitamin (Daily Multi-Vitamin 1 tab PO DAILY 03/05/23 03/05/23 History tablet) phentermine 37.5 mg tablet 37.5 mg PO DAILY 03/05/23 03/05/23 History Allergies Allergy/AdvReac Type Severity Reaction Status Date / Time cranberry Allergy Mild Rash Verified 03/05/23 09:42 keflex Allergy Intermediate Hives Uncoded 12/19/22 05:53 Exam Narrative Exam Narrative: Constitutional: Awake, alert, comfortable, well-appearing, nontoxic, interactive, vital signs as charted Head: Normocephalic, atraumatic Neck: Supple, normal appearance, normal range of motion, no meningeal signs, no lymphadenopathy Respiratory: No respiratory distress, breath sounds clear Cardiovascular: Regular rate and rhythm, strong and regular heart tones Abdomen: Nontender, normal bowel sounds, soft, no CVA tenderness Musculoskeletal: Normal gait, no swelling or edema Skin: No rashes or induration, no lesions, only visible skin inspected Neuro: No neurological deficits, normal sensation Psychiatric: Oriented ?3, normal affect Assessment and Plan Assessment and Plan (1) Kidney stones: Plan Left ESWL, possible cystoscopy, left stent placement scheduled with Dr. Murphy 03/07/2023.
[2023-03-05 10:20] LABS: Basophils Percent Auto 0.6 % (0.2-2.0); Eosinophils Absolute Auto 0.1 10^3/uL (0.0-0.7); Eosinophils Percent Auto 1.7 % (0.9-7.0); Hematocrit 36.4 % (36.0-48.0); Hemoglobin 11.7 g/dL (12.0-16.0); Immature Granulocytes Abs Auto 0.02 10^3/uL (0.00-0.03); Immature Granulocytes Pct Auto 0.3 % (0.0-0.5); Lymphocytes Absolute Auto 2.6 10^3/uL (1.2-3.8); Lymphocytes Percent Auto 36.7 % (20.5-60.0); Mean Corpuscular HGB Conc 32.1 g/dL (29.9-35.2); Mean Corpuscular Hemoglobin 29.5 pg (26.7-34.0); Mean Corpuscular Volume 91.9 fL (81.0-99.0); Mean Platelet Volume 11.2 fL (9.5-13.5); Monocytes Absolute Auto 0.4 10^3/uL (0.3-0.8); Monocytes Percent Auto 6.2 % (1.7-12.0); Neutrophils Absolute Auto 3.9 10^3/uL (1.4-6.5); Neutrophils Percent Auto 54.5 % (43.0-75.0); Platelet Count 299 10^3/uL (150-450); Red Blood Count 3.96 10^6/uL (4.20-5.40); Red Cell Distribution Width 13.2 % (11.0-15.0); White Blood Count 7.1 10^3/uL (4.0-11.0)
[2023-03-05 10:41] LABS: Anion Gap 12.2; BUN Creatinine Ratio 20.6; Calcium 8.9 mg/dL (8.5-10.1); Carbon Dioxide 25.6 mmol/L (21.0-32.0); Chloride 105 mmol/L (98-107); Estimated GFR (African America >60 (>=60); Estimated GFR (Non-African Ame >60 (>=60); Glucose 95 mg/dL (74-106); Potassium 3.8 mmol/L (3.5-5.1); Sodium 139 mmol/L (136-145)
[2023-03-05 10:46] LABS: INR 0.93; Partial Thromboplastin Time 27.5 sec (22.3-36.2); Prothrombin Time 9.9 sec (9.0-11.6)
== END 2023-03-05 09:20 | disposition home or self-care (01) ==
LOC: PST 09:19
PROVIDERS: PCP Student in an Organized Health Care Education/Training Program; Visit Provider Urology
DX: Z01.812 Encounter for preprocedural laboratory examination (principal); Z01.810 Encounter for preprocedural cardiovascular examination; N20.0 Calculus of kidney
CPT/HCPCS: 80048; 85025; 85610; 85730; 93005; G0463

== ENCOUNTER 2023-03-15 06:33 | Day surgery (SDC) | payer OTHER, SELFPAY ==
[2023-03-05 10:00] VITALS: BP 121/83; PULSE 81; RESP 18; TEMP 36.2; O2SAT 98; BMI 33.5
[2023-03-15] VITALS (8 sets, daily range): BP systolic 91–122; BP diastolic 58–76; PULSE 59–77; RESP 12–18; TEMP 36.2; O2SAT 96–100; BMI 33.5
--- OUTSIDE RECORDS SUMMARY | 2023-03-15 06:37 | XMS_ITS | CCD ---
Author Name Unknown Address [address] [place] [address] Organization [facility] Care Team Providers Care Police Judge Name Role Phone CHELSEA TEJADA Unavailable Unavailable CHELSEA TEJADA Unavailable Unavailable KAUSHAL KASPER Unavailable Unavailable KAUSHAL KASPER Unavailable Unavailable KAUSHAL KASPER Unavailable Unavailable KAUSHAL KASPER Unavailable Unavailable KAUSHAL KASPER Unavailable Unavailable KAUSHAL KASPER Unavailable Unavailable NONE, XXXX Primary Care Physician Unavailab Wero Howard Unavailable Gracia Murillo Primary Care Physician DOMO KLINE Primary Care Physician BRANDI ., DR EASLEY Attending Unavailabl e KARESMEK ., DR EASLEY Consulting Unavailabl e KARESMEK ., DR EASLEY Admitting Unavailabl carlos [facility] Unavailable Phillip Holland Consulting Unavailable ROSE ., DR ALVAREZ Admitting Unavailable ROSE ., DR ALVAREZ Attending Unavailable ROSE ., DR ALVAREZ Consulting Unavailable [facility] Unavailable Phillip Holland Consulting Unavailable FLORES WHYTE Admitting Unavailable FLORES WHYTE Attending Unavailable FLORES WHYTE Consulting Unavailable [facility] Care Unavailable [facility] Care Unavailable KARASIK ., DR EASLEY Attending Unavailabl e KARESMEK ., DR EASLEY Consulting Unavailabl e KARESMEK ., DR EASLEY Admitting Unavailabl e KARASIK ., DR EASLEY Attending Unavailabl e KARASIK ., DR EASLEY Consulting Unavailabl e KARESMEK ., DR EASLEY Admitting Unavailabl e MADELYN, [facility] Primary Care Unavailable KARASIK ., DR EASLEY Admitting Unavailabl e KARESMEK ., DR EASLEY Attending Unavailabl e KARASIK ., DR EASLEY Consulting [facility]ailchrist[facility] ROSE ., DR ALVAREZ Attending Unavailable ROSE ., DR ALVAREZ Consulting Unavailable ROSE ., DR ALVAREZ Admitting Unavailable [facility] Care Unavailable Leigh Fleming Consulting Unavailable SPENCER KLINE Attending Unavailable DO Jose Teran Attending Unavailable Saima Moffett Attending Unavailable ROSEAntonio Attending Unavailable ROSE, Antonio Parikh Attending Unavailable ISABELL, FLORES Gonzalez Attending Unavailable ISABELL, FLORES Gonzalez Attending Unavailable ISABELL, FLORES Gonzalez Attending Unavailable ROSEAntonio Attending Unavailable ROSEAntonio Referring Unavailable ROSEAntonio Admitting Unavailable Allergies Allergy Classification Reported Allergen(s) Allergy Type Date of Onset Reaction(s) Facility (14 sources) Cephalexin; Translations: [cephalexin] Drug Allergy Unknown (qualifier value), Weal (disorder) [facility] (1 source) Cephalexin Drug Allergy [address] [facility] (1 source) Ciprofloxacin Drug Allergy [address] [facility] Medications Current Medications Medication Drug Class(es) Dates Sig (Normalized) Sig (Original) brompheniramine maleate 0.4 mg/ml / dextromethorphan hydrobromide 2 mg/ml / pseudoephedrine hydrochloride 6 mg/ml oral solution (2 sources) alpha-Adrenergic Agonist, Uncompetitive X-ebdfvz-P-aspartate Receptor Antagonist, Sigma-1 Agonist Start: 2 take 5 mL by mouth four times daily Bromfed DM oral syrup 5 mL, Oral, QID for cold symptoms, 200 mL, Refill(s) 0, [facility], 174, cm, 01/20/22 9:44:00 EDT, Height/Length Dosing, 94, kg, 01/20/22 9:44:00 EDT, Weight Dosing Start Date: 01/20/22 Status: Ordered cyclobenzaprine hydrochloride 10 mg oral tablet (1 source) Muscle Relaxant Start: 2 End: 2 take 1 tablet by mouth three times daily as needed for pain cyclobenzaprine 10 mg Tab 10 mg = 1 tab(s), Oral, TID, PRN Muscle pain, X 5 day(s), # 15 tab(s), Refills(s) 0, Pharmacy: [facility], 173, cm, 02/11/22 12:01:00 EST, Height/Length Dosing, 105, kg, 02/11/22 12:01:00 EST, Weight Dosing Start Date: 02/11/22 Stop Date: 02/16/22 Status: Ordered Daily Multiple Vitamins (4 sources) Start: 1 Daily Multiple Vitamins Oral, Daily, Refill(s) 0 Start Date: 04/09/20 Status: Ordered dicyclomine hydrochloride 10 mg oral capsule (3 sources) Anticholinergic Start: 2 take 1 capsule by mouth four times daily as needed for pain Bentyl 10 mg Cap 10 mg = 1 cap(s), Oral, QID, PRN Other (see comment), Abdominal pain/ cramping, # 8 cap(s), Refills(s) 0 Start Date: 08/25/21 Status: Ordered famotidine 20 mg oral tablet (4 sources) Histamine-2 Receptor Antagonist Start: 0 take 1 tablet by mouth twice daily Pepcid 20 mg Tab 20 mg = 1 tab(s), Oral, BID, # 60 tab(s), Refills(s) 0, Pharmacy: [facility], 173, cm, 10/23/19 1:40:00 EDT, Height/Length Measured, 70.5, kg, 10/23/19 1:40:00 EDT, Weight Measured Start Date: 10/23/19 Status: Ordered lidocaine 0.05 mg/mg medicated patch (1 source) Antiarrhythmic, Amide Local Anesthetic Start: 2 Lidoderm 5% Patch 1 patch(es), Topical, Daily Muscle pain, 7 EA, Refill(s) 0, apply 12 hours on and 12 hours off daily, [facility], 173, cm, 02/11/22 12:01:00 EST, Height/Length Dosing, 105, kg, 02/11/22 12:01:00 EST, Weight Dosing Start Date: 02/11/22 Status: Ordered Multivitamin preparation (3 sources) Start: 3 multivitamin Refill(s) 0 Start Date: 01/23/23 Status: Ordered naproxen 500 mg oral tablet (1 source) Nonsteroidal Anti-inflammatory Drug Start: 2 take 1 tablet by mouth twice daily as needed for pain naproxen 500 mg Tab 500 mg = 1 tab(s), Oral, BID, PRN for pain, # 20 tab(s), Refills(s) 0, Pharmacy: [facility], 173, cm, 02/11/22 12:01:00 EST, Height/Length Dosing, 105, kg, 02/11/22 12:01:00 EST, Weight Dosing Start Date: 02/11/22 Status: Ordered phentermine hydrochloride 37.5 mg oral tablet (2 sources) Sympathomimetic Amine Anorectic Start: 2 take 37.5 mg by mouth once daily Adipex-P 37.5 mg, Oral, Daily, Refills(s) 0 Start Date: 02/26/22 Status: Ordered Zofran ODT 4 mg Tab-Dis (3 sources) Start: 2 take 1 tablet by mouth every eight hours as needed for nausea Zofran ODT 4 mg Tab-Dis 4 mg = 1 tab(s), Oral, q8hr, PRN Nausea/Vomiting, # 12 tab(s), Refills(s) 0 Start Date: 08/25/21 Status: Ordered Completed/Discontinued Medications Medication Drug Class(es) Dates Sig (Normalized) Sig (Original) ciprofloxacin 500 mg oral tablet (4 sources) Quinolone Antimicrobial Start: 11-20-2020 take 1 tablet by mouth twice daily Cipro 500 mg Tab 500 mg = 1 tab(s), Oral, BID, Take one tab by mouth twice a day for seven days, # 14 tab(s), Refills(s) 0 Start Date: 11/20/20 Status: Ordered Problems Active Problems Problem Classification Problem Date Documented Date Episodic/Chronic Abdominal pain (1 source) Abdominal pain; Translations: [Unspecified abdominal pain] Onset: 09-17-2021 Episodic Calculus of urinary tract (20 sources) Kidney stone; Translations: [Calculus of kidney] Onset: 12-26-2021 02-26-2020 Episodic Fracture of lower limb (1 source) Closed fracture of phalanx of foot; Translations: [Unspecified fracture of unspecified toe(s), initial encounter for closed fracture] Onset: 03-13-2022 Episodic Genitourinary symptoms and ill-defined conditions (13 sources) Genuine stress incontinence 03-16-2020 Chronic Genitourinary symptoms and ill-defined conditions (20 sources) H/O: kidney disease; Translations: [H/O: urethral stricture] Onset: 01-23-2023 02-26-2020 Episodic Headache; including migraine (1 source) Headache; Translations: [Headache, unspecified] Onset: 02-26-2022 Episodic Immunizations and screening for infectious disease (1 source) Encounter for screening for human papillomavirus (HPV); Translations: [ENC SCREENING HUMAN PAPILLOMAVIRUS] Onset: 07-09-2022 Episodic Noninfectious gastroenteritis (1 source) Noninfectious enteritis; Translations: [Noninfective gastroenteritis and colitis, unspecified] Onset: 08-25-2021 Episodic Other diseases of kidney and ureters (13 sources) Renal mass 02-26-2020 Chronic Other diseases of kidney and ureters (13 sources) Hydronephrosis 02-26-2020 Episodic Other diseases of kidney and ureters (14 sources) Stricture of ureter; Translations: [Crossing vessel and stricture of ureter without hydronephrosis] Onset: 01-23-2023 02-26-2020 Episodic Other nutritional; endocrine; and metabolic disorders (13 sources) Body mass index 30+ - obesity 03-16-2020 Chronic Other and delivery including normal (9 sources) Encounter for supervision of other normal , second trimester; Translations: [Encounter for supervision of normal , unspecified, first trimester] Onset: 05-29-2022 Episodic Other screening for suspected conditions (not mental disorders or infectious disease) (4 sources) Encounter for screening for malignant neoplasm of cervix; Translations: [ENC SCREENING MALIG NEOPLASM CERV] Onset: 07-05-2022 Episodic Other upper respiratory infections (1 source) Acute upper respiratory infection; Translations: [Acute upper respiratory infection, unspecified] Onset: 01-20-2022 Episodic Residual codes; unclassified (13 sources) Tobacco user 09-03-2012 Episodic Comment on above: Added secondary to s ocial history documentation. Residual codes; unclassified (1 source) 10 weeks gestation of ; Translations: [10 WEEKS GESTATION OF ] Onset: 05-30-2022 Episodic Spondylosis; intervertebral disc disorders; other back problems (1 source) Backache; Translations: [Dorsalgia, unspecified] Onset: 02-11-2022 Episodic Substance-related disorders (13 sources) Smoker 02-05-2014 Chronic Comment on above: Added secondary to d ocumentation in Social History. Unclassified (1 source) Suicidal ideations / R45.851(ICD-10) Onset: 08-10-2017 Unclassified (20 sources) Onset: 10-03-2005 Resolved: 02-16-2100 03-22-2013 Unclassified (4 sources) Tobacco use during ( Confirmed ) 06-18-2013 Unclassified (9 sources) Tobacco use during 06-18-2013 Urinary tract infections (17 sources) Chronic cystitis; Translations: [Other chronic cystitis without hematuria] Onset: 12-26-2021 11-30-2020 Chronic Urinary tract infections (13 sources) Lower urinary tract infectious disease 10-24-2014 Episodic Past or Other Problems Problem Classification Problem Date Documented Da te Episodic/Chronic Hepatitis (4 sources) Viral hepatitis C; Translations: [Unspecified viral hepatitis C without hepatic coma] Onset: 03-23-2021 Resolved: 05-04-2021 Episodic Results Test Name Value Interpretation Reference Range Facility Consent for Procedure/Surger yon 02-22-2023 Consent for Procedure/Surgery [id number] 0TIFF Normal [facility] Patient Educationon 02-23-20 23 Patient Education Nephrology Lithotripsy Lithotripsy is a treatment that can help break up kidney stones that are too large to pass on their own. This is a nonsurgical procedure that crushes a kidney stone with shock waves. These shock waves pass through your body and focus on the kidney stone. They cause the kidney stone to break up into smaller pieces while it is still in the urinary tract. The smaller pieces of stone can pass more easily out of your body in the urine. Tell a health care provider about: ? Any allergies you have. ? All medicines you are taking, including vitamins, herbs, eye drops, creams, and jgvq-udo-yfmxhss medicines. ? Any problems you or family members have had with anesthetic medicines. ? Any blood disorders you have. ? Any surgeries you have had. ? Any medical conditions you have. ? Whether you are or may be . What are the risks? Generally, this is a safe procedure. However, problems may occur, including: ? Infection. ? Bleeding from the kidney. ? Bruising of the kidney or skin. ? Scarring of the kidney, which can lead to: ? Increased blood pressure. ? Poor kidney function. ? Return (recurrence) of kidney stones. ? Damage to other structures or organs, such as the liver, colon, spleen, or pancreas. ? Blockage (obstruction) of the tube that carries urine from the kidney to the bladder (ureter). ? Failure of the kidney stone to break into pieces (fragments). What happens before the procedure? Staying hydrated Follow instructions from your health care provider about hydration, which may include: ? Up to 2 hours before the procedure ? you may continue to drink clear liquids, such as water, clear fruit juice, black coffee, and plain tea. Eating and drinking restrictions Follow instructions from your health care provider about eating and drinking, which may include: ? 8 hours before the procedure ? stop eating heavy meals or foods, such as meat, fried foods, or fatty foods. ? 6 hours before the procedure ? stop eating light meals or foods, such as toast or cereal. ? 6 hours before the procedure ? stop drinking milk or drinks that contain milk. ? 2 hours before the procedure ? stop drinking clear liquids. Medicines Ask your health care provider about: ? Changing or stopping your regular medicines. This is especially important if you are taking diabetes medicines or blood thinners. ? Taking medicines such as aspirin and ibuprofen. These medicines can thin your blood. Do not take these medicines unless your health care provider tells you to take them. ? Taking fonp-grw-rbnabrc medicines, vitamins, herbs, and supplements. Tests You may have tests, such as: ? Blood tests. ? Urine tests. ? Imaging tests, such as a CT scan. General instructions ? Plan to have someone take you home from the hospital or clinic. ? If you will be going home right after the procedure, plan to have someone with you for 24 hours. ? Ask your health care provider what steps will be taken to help prevent infection. These may include washing skin with a germ-killing soap. What happens during the procedure? ? An IV will be inserted into one of your veins. ? You will be given one or more of the following: ? A medicine to help you relax (sedative). ? A medicine to make you fall asleep (general anesthetic). ? A water-filled cushion may be placed behind your kidney or on your abdomen. In some cases, you may be placed in a tub of lukewarm water. ? Your body will be positioned in a way that makes it easy to target the kidney stone. ? An X-ray or ultrasound exam will be done to locate your stone. ? Shock waves will be aimed at the stone. If you are awake, you may feel a tapping sensation as the shock waves pass through your body. ? A flexible tube with holes in it (stent) may be placed in the ureter. This will help keep urine flowing from the kidney if the fragments of the stone have been blocking the ureter. The procedure may vary among health care providers and hospitals. What happens after the procedure? ? You may have an X-ray to see whether the procedure was able to break up the kidney stone and how much of the stone has passed. If large stone fragments remain after treatment, you may need to have a second procedure at a later time. ? Your blood pressure, heart rate, breathing rate, and blood oxygen level will be monitored until you leave the hospital or clinic. ? You may be given antibiotics or pain medicine as needed. ? If a stent was placed in your ureter during surgery, it may stay in place for a few weeks. ? You may need to strain your urine to collect pieces of the kidney stone for testing. ? You will need to drink plenty of water. ? If you were given a sedative during the procedure, it can affect you for several hours. Do not drive or operate machinery until your health care provider says that it is safe. Summary (more content not included)... Normal [facility] US Renalon 02-16-2023 US Renal Exam Date/Time: 02/14/2023 17:12 EST Reason for Exam: Kidney Stones;Other (please specify) Report IMPRESSION: NEGATIVE ULTRASOUND OF THE KIDNEYS. CLINICAL HISTORY: Kidney Stones. COMPARISON: NONE. FINDINGS: Right kidney measures 13.3 x 5.6 x 6.6 cm. Left kidney measures 11.3 x 6.3 x 6.6 cm. Kidneys normal in size, shape, echogenicity, color flow. No calculi, hydronephrosis, cortical thinning, cystic/solid lesions, bilateral kidneys. Ordering Provider: Antonio ROSE FINAL REPORT Dictated: 02/16/2023 10:00 am Dao Hardin MD Signed (Electronic Signature): 02/16/2023 10:00 am Signed by: Dao Hardin MD Transcribed by: DARRIN Technologist: COURTNEY Eric [facility] Consent for Treatmenton - Consent for Treatment [id number] 0TIFF Normal [facility] RAD - MISCon 02-07-2023 RAD - MISC [id number] 0TIFF [facility] Patient Educationon 01-24-20 Patient Education Nephrology Dietary Guidelines to Help Prevent Kidney Stones Kidney stones are deposits of minerals and salts that form inside your kidneys. Your risk of developing kidney stones may be greater depending on your diet, your lifestyle, the medicines you take, and whether you have certain medical conditions. Most people can lower their chances of developing kidney stones by following the instructions below. Your dietitian may give you more specific instructions depending on your overall health and the type of kidney stones you tend to develop. What are tips for following this plan? Reading food labels ? Choose foods with no salt added or low-salt labels. Limit your salt (sodium) intake to less than 1,500 mg a day. ? Choose foods with calcium for each meal and snack. Try to eat about 300 mg of calcium at each meal. Foods that contain 200?500 mg of calcium a serving include: ? 8 oz (237 mL) of milk, frwckcm-uqppvleuddby-i airy milk, and calcium-fortifiedfruit juice. Calcium-fortified means that calcium has been added to these drinks. ? 8 oz (237 mL) of kefir, yogurt, and soy yogurt. ? 4 oz (114 g) of tofu. ? 1 oz (28 g) of cheese. ? 1 cup (150 g) of dried figs. ? 1 cup (91 g) of cooked broccoli. ? One 3 oz (85 g) can of sardines or mackerel. Most people need 1,000?1,500 mg of calcium a day. Talk to your dietitian about how much calcium is recommended for you. Shopping ? Buy plenty of fresh fruits and vegetables. Most people do not need to avoid fruits and vegetables, even if these foods contain nutrients that may contribute to kidney stones. ? When shopping for convenience foods, choose: ? Whole pieces of fruit. ? Pre-made salads with dressing on the side. ? Low-fat fruit and yogurt smoothies. ? Avoid buying frozen meals or prepared deli foods. These can be high in sodium. ? Look for foods with live cultures, such as yogurt and kefir. ? Choose high-fiber grains, such as whole-wheat breads, oat bran, and wheat cereals. Cooking ? Do not add salt to food when cooking. Place a salt shaker on the table and allow each person to add his or her own salt to taste. ? Use vegetable protein, such as beans, textured vegetable protein (TVP), or tofu, instead of meat in pasta, casseroles, and soups. Meal planning ? Eat less salt, if told by your dietitian. To do this: ? Avoid eating processed or pre-made food. ? Avoid eating fast food. ? Eat less animal protein, including cheese, meat, poultry, or fish, if told by your dietitian. To do this: ? Limit the number of times you have meat, poultry, fish, or cheese each week. Eat a diet free of meat at least 2 days a week. ? Eat only one serving each day of meat, poultry, fish, or seafood. ? When you prepare animal protein, cut pieces into small portion sizes. For most meat and fish, one serving is about the size of the palm of your hand. ? Eat at least five servings of fresh fruits and vegetables each day. To do this: ? Keep fruits and vegetables on hand for snacks. ? Eat one piece of fruit or a handful of berries with breakfast. ? Have a salad and fruit at lunch. ? Have two kinds of vegetables at dinner. ? Limit foods that are high in a substance called oxalate. These include: ? Spinach (cooked), rhubarb, beets, sweet potatoes, and [place] chard. ? Peanuts. ? Potato chips, beninese fries, and baked potatoes with skin on. ? Nuts and nut products. ? Chocolate. ? If you regularly take a diuretic medicine, make sure to eat at least 1 or 2 servings of fruits or vegetables that are high in potassium each day. These include: ? Avocado. ? Banana. ? [place], prune, carrot, or tomato juice. ? Baked potato. ? Cabbage. ? Beans and split peas. Lifestyle ? Drink enough fluid to keep your urine pale yellow. This is the most important thing you can do. Spread your fluid intake throughout the day. ? If you drink alcohol: ? Limit how much you use to: ? 0?1 drink a day for women who are not . ? 0?2 drinks a day for men. ? Be aware of how much alcohol is in your drink. In the [place] one drink equals one 12 oz bottle of beer (355 mL), one 5 oz glass of wine (148 mL), or one 1? oz glass of hard liquor (44 mL). ? Lose weight if told by your health care provider. Work with your dietitian to find an eating plan and weight loss strategies that work best for you. General information ? Talk to your health care provider and dietitian about taking daily supplements. You may be told the following depending on your health and the cause of your kidney stones: ? Not to take supplements with vitamin C. ? To take a calcium supplement. ? To take a daily probiotic supplement. ? To take other supplements such as magnesium, fish oil, or vitamin B6. ? Take fkqy-har-eqtfuul and prescription medicines only as told by your health care provider. These include supplements. What foods should I limit? Limit your in (more content not included)... Normal [facility] Urology Office/Clinic Noteon 01-23-2023 Urology Office/Clinic Note Chief Complaint 6m KUB/KEKE HPI Staff PRW pt 6m KUB & KEKE DX: Kidney Stone & Chronic Cystitis *No Urology Meds Moderate intermittent lower back pain, unsure if stone related or due to nerve block from recent C Section. Denies current pain/burning and blood in urine. History of Present Illness staff HPI reviewed and agree. Review of Systems PHQ Score Initial Depression Screen Score: 0 no fever, chills, malaise, myalgia. no rash/lesions. no chest pain, palpitations, or SOB. no abdominal pain, nausea, vomiting. no unilateral calf swelling, redness, pain Physical Exam Vitals & Measurements HR: 68(Peripheral) RR: 16 BP: 128/79 HT: 69 in HT: 174 cm WT: 100 kg WT: 220 lb BMI: 33.03 General: nontoxic, NAD Mouth: moist mucosa Lungs: normal respiratory effort Cardio: regular rate, good distal perfusion Abdomen: nondistended, no suprapubic distention or tenderness, no CVA tenderness Neurologic: Grossly normal Skin: No rashes or suspicious lesions Assessment/Plan 1. Bilateral kidney stones (N20.0: Calculus of kidney) CT AP wo con 09/17/21 [facility] - calculus in the left kidney measuring 0.7 cm, along with tiny punctate nonobstructing left renal calculi. KUB 01/27/22 [facility] - persistent 7 x 5 mm density projecting over inferior pole of kidney favoring a stone. Metabolic workup 01/25/22 - very low urine volume & low citrate. Repeat metabolic work up 05/10/22 - urine volume increased but still needs doubled-tripled & citrate has improved. KUB 01/19/23 [facility] - R mid pole stone and multiple L stones. Discussed imaging results. No measurements of stones provided and unable to access [facility] imaging on computer today to view images independently so unable to indicate if stones remain stable in size. We briefly discussed lithotripsy options like ESWL vs laser litho should the XR show significant increased stone burden. otherwise will continue monitoring. Will discuss case with MD to determine appropriate procedural intervention given hx of nephrostomy tube done 05/11/15 in [place]. Will call pt with plan. Ordered: Body Mass Index (BMI) documented 3008F Current tobacco non-user 1036F Depression Screening Negative 3352F Discharge medications reconciled with current medications in outpatient record 1111F Most recent diastolic blood pressure <80 mm Hg 3078F Patient screen for fall risk: no falls in last year or 1 fall with no injury in last year 1101F Systolic BP <130 mm Hg (Most Recent) 3074F 2. Ureteral stricture (N13.5: Crossing vessel and stricture of ureter without hydronephrosis) S/p Cysto/Urethral Dilation/R RGP/R stent placement 10/26/[address] Fierro. S/p multiple stents and neph tube placement by urologist in [facility] 2015 3. Personal history of urethral stricture (Z87.448: Personal history of other diseases of urinary system) S/p Cysto/Urethral Dilation/R RGP/R stent placement 10/26/[address] Fierro. Ordered: Urnls Dip Stick Auto w/o Microscopy POC 12414 4. Chronic cystitis (N30.20: Other chronic cystitis without hematuria) UA today negative for infection, trace-intact blood. Denies any infections since last encounter. Follow-up With When Contact Information ISABELL CORREIA, FLORES Gonzalez, URL [address] [place] [address] [phone] Additional Instructions: will call pt Patient Education Dietary Guidelines to Help Prevent Kidney Stones Documentation recorded by the timbo Putnam accurately reflects the services(s) I performed and decisions made by me. Authenticated by Flores Whyte PA-C on 01/23/2023 15:39:59. ISamantha, personally scribed for Flores Whyte PA-C on 01/23/2023 15:32:21. . Problem List/Past Medical History Ongoing Bilateral kidney stones BMI 30.0-30.9,adult Chronic cystitis History of kidney disease History of kidney stones History of ureteral obstruction Hydronephrosis Kidney stone Nocturia Personal history of urethral stricture Renal mass Smoker.. Stress incontinence Ureteral stricture Historical Kidney stones UTI (lower urinary tract infection) Procedure/Surgical History Nephrostomy tube (05/11/2015), Cystoscopy (04/14/2015), Cystoscopy (03/08/2015), cystoscopy, urethral dilatation, right retrograde pyelogram, right double J ureteral stent placement under fluoroscopic guidance (10/26/2014), section (09/05/2014), Exploratory laparotomy. Medications multivitamin Allergies Keflex (Hives) Social History Alcohol - Denies Alcohol Use, 09/03/2012 Current, 04/09/2020 Current, 1-2 times per month, 09/14/2019 Current, 05/16/2019 Substance Abuse - Denies Substance Abuse, 09/03/2012 Current, 04/09/2020 Current, 05/16/2019 Tobacco - Low Risk, 12/08/2019 10 or more cigarettes (1/2 pack or more)/day in last 30 days Tobacco Use:. Never Smokeless Tobacco Use:. Cigarettes, Household tobacco concerns: No. Yes, 01/23 (more content not included)... Normal [facility] Comment on above: Result Comment: Elec tronically Signed By: FLORES WHYTE PA-C\.br\Date and Time Signed: 01/23/23 15:40 EST\.br\Electronically Co-Signed By: Samantha Putnam\.br\Date and Time Co-Signed: 01/23/23 15:32 EST RAD - MISCon 01-22-2023 RAD - MISC [id number] 0TIFF Normal [facility] Physician Orderon 01-15-2023 Physician Order [id number] TIFF Normal [facility] AFP MATERNAL FOR SPINA BIFID Aon 07-28-2022 AFP MoM 0.[address] [facility] Comment on above: Performed By: #### M AG24 #### [facility] [address] [address] [address] Anthony Oneill AFP Value 27.0 ng/mL Normal [facility] Comment on above: Performed By: #### M AG24 #### [facility] [address] [address] [address] Anthony Oneill AFP, Serum for Spina Bifida Report Normal [facility] Comment on above: Performed By: #### M AG24 #### [facility] [address] [address] [address] Anthony Oneill Comment Comment Normal [facility] Comment on above: Result Comment: Eduardo Alatorre, Ph.D., [facility] Director . References: Available Upon Request. . Multiples Of Median Cutoffs For AFP Elevations Rodríguez 2.5 Black 2.8 IDD 2.0 Twins 4.5 Abbreviation Definitions IDD - Insulin Dep Diabetes OSBR - Open Spina Bifida Risk . For further inquiries contact [facility] at [phone]. . This test was developed and its performance characteristics determined by [employer]. It has not been cleared or approved by the Food and Drug Administration. Performed By: #### M AG24 #### [facility] [address] [place] [address] Dr. Anthony Wolfe Age Collection Date 20.1 weeks Normal [facility] Comment on above: Performed By: #### M AG24 #### [facility] [address] [place] [address] Dr. Anthony Oneill Gestat, Age Based on LMP Normal [facility] Comment on above: Result Comment: Reca lculations are not recommended when gestational dating by LMP and ultrasound are within 10 days. Performed By: #### M AG24 #### [facility] [address] [place] [address] Dr. Anthony Oneill Insulin Dep Diabetes No Normal [facility] Comment on above: Performed By: #### M AG24 #### [facility] [address] [place] [address] Dr. Anthony Oneill Interpretation Comment Normal [facility] Comment on above: Result Comment: Inte rpretation: Screen Negative . This result is screen negative for OSB. The AFP MoM calculated is based on the gestational age provided. MS-AFP can identify up to 80% of open neural tube defects. Closed neural tube defects and some open defects may not be detected by this test. This test does not screen for Down Syndrome or Trisomy 18. If screening for Down Syndrome or Trisomy 18 is desired, contact [facility] to discuss available options. The [employer] recommends amniocentesis be offered to women age 35 and older. Performed By: #### M AG24 #### [facility] [address] [place] [address] Dr. Anthony Oneill [age] Normal [facility] Comment on above: Performed By: #### M AG24 #### [facility] [address] [place] [address] Dr. Anthony Oneill Multiple Gestation No Normal [facility] Comment on above: Performed By: #### M AG24 #### [facility] [address] [address] [address] Anthony Oneill OS[place] [address] Normal [facility] Comment on above: Performed By: #### M AG24 #### [facility] [address] [address] [address] Anthony Oneill PDF . Normal [facility] Comment on above: Performed By: #### M AG24 #### [facility] [address] [place] [address] Dr. Anthony Oneill [facility] Comment on above: Performed By: #### M AG24 #### [facility] [address] [place] [address] Dr. Anthony Oneill Test Results: Negative [facility] Comment on above: Performed By: #### M AG24 #### [facility] [address] [place] [address] Dr. Anthony Oneill PAP ACOG PANEL 2: 30 to 65on 07-12-2022 . . Normal [facility] Comment on above: Result Comment: Perf ormed at: WB Performed By: #### M AG24 #### [facility] [address] [place] [address] Dr. Anthony Oneill Age Gdln ACOG Testing - [facility] Comment on above: Performed By: #### M AG24 #### [facility] [address] [place] [address] Dr. Anthony Oneill DIAGNOSIS: Comment [facility] Comment on above: Result Comment: NEGA TIVE FOR INTRAEPITHELIAL LESION OR MALIGNANCY. Performed at: WB Performed By: #### M AG24 #### [facility] [address] [place] [address] Dr. Anthony Oneill HPV Aptima Negative Normal [facility] Comment on above: Result Comment: This nucleic acid amplification test detects fourteen high-risk HPV types (16,18,31,33,35,39,45,51,52,56,58,59,66,68) without differentiation. Performed at: =G Performed By: #### M AG24 #### [facility] [address] [place] [address] Dr. Anthony Oneill HPV Genotype Reflex Comment Normal [facility] Comment on above: Result Comment: Crit eria not met, HPV Genotype not performed. Performed at: WB Performed By: #### M AG24 #### [facility] [address] [place] [address] Dr. Anthony Oneill Methodology: Comment Normal [facility] Comment on above: Result Comment: This liquid based ThinPrep(R) pap test was screened with the use of an image guided system. Performed at: WB Performed By: #### M AG24 #### [facility] [address] [place] [address] Dr. Anthony Oneill Note: Comment Normal [facility] Comment on above: Result Comment: The Pap smear is a screening test designed to aid in the detection of premalignant and malignant conditions of the uterine cervix. It is not a diagnostic procedure and should not be used as the sole means of detecting cervical cancer. Both false-positive and false-negative reports do occur. . Performed at: WB Performed By: #### M AG24 #### [facility] [address] [place] [address] Dr. Anthony Oneill Performed by: Comment Normal [facility] Comment on above: Result Comment: Elizabeth Garcia, [employer] Performed at: WB Performed By: #### M AG24 #### [facility] [address] [place] [address] Dr. Anthony Oneill Specimen adequacy: Comment Normal [facility] Comment on above: Result Comment: Sati sfactory for evaluation. No endocervical component is identified. Performed at: WB Performed By: #### M AG24 #### [facility] [address] [place] [address] Dr. Anthony Oneill CHLAMYDIA/GONOCOCCUS LYLA (SW AB/URINE/PAPon 07-07-2022 Chlamydia trachomatis, LYLA Negative Normal Negative [facility] Comment on above: Performed By: #### H CVPCRR #### [facility] [address] [place] [address] Dr. Anthony Oneill Neisseria gonorrhoeae, LYLA Negative Normal Negative [facility] Comment on above: Performed By: #### H CVPCRR #### [facility] [address] [address] [address] Anthony Oneill HEPATITIS C VIRUS AB W/ REFL EX QUANTon 06-01-2022 HCV AB Reactive Abnormal Non Reactive [facility] Comment on above: Performed By: #### H CVPCRR #### [facility] [address] [place] [address] Dr. Anthony Oneill HCV log10 Normal [facility] Comment on above: Performed By: #### H CVPCRR #### [facility] [address] [address] [address] Anthony Oneill Hep C Quantitation Not detected Normal [facility] Comment on above: Performed By: #### H CVPCRR #### [facility] [address] [address] [address] Anthony Oneill Interpretation Comment Normal [facility] Comment on above: Result Comment: Posi tive HCV antibody screen without the presence of HCV RNA is consistent with a resolved past infection or a false positive HCV antibody. Consider repeat testing after one month. Performed By: #### H CVPCRR #### [facility] [address] [place] [address] Dr. Anthony Oneill Test Information: Comment Normal [facility] Comment on above: Result Comment: The quantitative range of this assay is 15 IU/mL to 100 million IU/mL. Performed By: #### H CVPCRR #### [facility] [address] [place] [address] Dr. Anthony Oneill HEP B SURFACE ANTIGEN SCREEN on 05-30-2022 HBsAg Screen Negative Normal Negative [facility] Comment on above: Performed By: #### H CVPCRR #### [facility] [address] [address] [address] Anthony Oneill HIV 1 AND 2 WITH REFLEXon HIV Screen 4th Generation wRfx Non-Reactive Normal Non Reactive [facility] Comment on above: Result Comment: HIV Negative HIV-1/HIV-2 antibodies and HIV-1 p24 antigen were NOT detected. There is no laboratory evidence of HIV infection. Performed By: #### M AG24 #### [facility] [address] [address] [address] Anthony Oneill Patient Educationon 05-31-19 Patient Education Urology Kidney Stones Kidney stones are rock-like masses that form inside of the kidneys. Kidneys are organs that make pee (urine). A kidney stone may move into other parts of the urinary tract, including: ? The tubes that connect the kidneys to the bladder (ureters). ? The bladder. ? The tube that carries urine out of the body (urethra). Kidney stones can cause very bad pain and can block the flow of pee. The stone usually leaves your body (passes) through your pee. You may need to have a doctor take out the stone. What are the causes? Kidney stones may be caused by: ? A condition in which certain glands make too much parathyroid hormone (primary hyperparathyroidism). ? A buildup of a type of crystals in the bladder made of a chemical called uric acid. The body makes uric acid when you eat certain foods. ? Narrowing (stricture) of one or both of the ureters. ? A kidney blockage that you were born with. ? Past surgery on the kidney or the ureters, such as gastric bypass surgery. What increases the risk? You are more likely to develop this condition if: ? You have had a kidney stone in the past. ? You have a family history of kidney stones. ? You do not drink enough water. ? You eat a diet that is high in protein, salt (sodium), or sugar. ? You are overweight or very overweight (obese). What are the signs or symptoms? Symptoms of a kidney stone may include: ? Pain in the side of the belly, right below the ribs (flank pain). Pain usually spreads (radiates) to the groin. ? Needing to pee often or right away (urgently). ? Pain when going pee (urinating). ? Blood in your pee (hematuria). ? Feeling like you may vomit (nauseous). ? Vomiting. ? Fever and chills. How is this treated? Treatment depends on the size, location, and makeup of the kidney stones. The stones will often pass out of the body through peeing. You may need to: ? Drink more fluid to help pass the stone. In some cases, you may be given fluids through an IV tube put into one of your veins at the hospital. ? Take medicine for pain. ? Make changes in your diet to help keep kidney stones from coming back. Sometimes, medical procedures are needed to remove a kidney stone. This may involve: ? A procedure to break up kidney stones using a beam of light (laser) or shock waves. ? Surgery to remove the kidney stones. Follow these instructions at home: Medicines ? Take tkgk-qjy-ifchvyl and prescription medicines only as told by your doctor. ? Ask your doctor if the medicine prescribed to you requires you to avoid driving or using heavy machinery. Eating and drinking ? Drink enough fluid to keep your pee pale yellow. You may be told to drink at least 8?10 glasses of water each day. This will help you pass the stone. ? If told by your doctor, change your diet. This may include: ? Limiting how much salt you eat. ? Eating more fruits and vegetables. ? Limiting how much meat, poultry, fish, and eggs you eat. ? Follow instructions from your doctor about eating or drinking restrictions. General instructions ? Collect pee samples as told by your doctor. You may need to collect a pee sample: ? 24 hours after a stone comes out. ? 8?12 weeks after a stone comes out, and every 6?12 months after that. ? Strain your pee every time you pee (urinate), for as long as told. Use the strainer that your doctor recommends. ? Do not throw out the stone. Keep it so that it can be tested by your doctor. ? Keep all follow-up visits as told by your doctor. This is important. You may need follow-up tests. How is this prevented? To prevent another kidney stone: ? Drink enough fluid to keep your pee pale yellow. This is the best way to prevent kidney stones. ? Eat healthy foods. ? Avoid certain foods as told by your doctor. You may be told to eat less protein. ? Stay at a healthy weight. Where to find more information ? National Kidney Foundation (NKF): www.kidney.org ? [employer] (UCF): www.urologyhealth.org Contact a doctor if: ? You have pain that gets worse or does not get better with medicine. Get help right away if: ? You have a fever or chills. ? You get very bad pain. ? You get new pain in your belly (abdomen). ? You pass out (faint). ? You cannot pee. Summary ? Kidney stones are rock-like masses that form inside of the kidneys. ? Kidney stones can cause very bad pain and can block the flow of pee. ? The stones will often pass out of the body through peeing. ? Drink enough fluid to keep your pee pale yellow. This information is not intended to replace advice given to you by your health care provider. Make sure you discuss any questions you have with your health care provider. Document Released: 08/21/2008 Document Revised: 07/22/2019 Document Reviewed: 07/22/2019 [employer] Patient Education ? 2019 [employer]. Normal [facility] RPR QUANTon 05-30-2022 Rapid Plasma Reagin, Quant Non-Reactive Normal NonRea<1:1 [facility] Comment on above: Result Comment: Plea Note: This test does not meet current guidelines for screening and diagnosis of syphilis. This test is intended for following treatment response in patients being treated for syphilis infection. To screen for syphilis infection, a reflex cascade that includes both RPR and a treponema-specific assay should be utilized, such as Treponema pallidum (Syphilis) Screening Cassia (714231) or Rapid Plasma Reagin (RPR) Test With Reflex to Quantitative RPR and Confirmatory Treponema pallidum Antibodies (525122). Performed By: #### R PRQ #### [facility] [address] [place] [address] Dr. Anthony Oneill RUBELLA AB IGGon 05-30-2022 Rubella Antibodies, IgG 8.79 index Normal Immune >0.[address] [facility] Comment on above: Result Comment: Non- immune <0.90 Equivocal 0.90 - 0.99 Immune >0.99 Performed By: #### C REA24U, NA24U #### [facility] [id number] Anthony Oneill Urology Office/Clinic Noteon 05-30-2022 Urology Office/Clinic Note Chief Complaint Pt here to review labs HPI Staff PRW pt here today with repeat metabolic work up (done 05/10/22). Pt had originally had metabolic work up done 01/27/22. After reviewing the results today's appt was made per BRITTANY's request based on low volume at time of metabolic work up. Pt was to increase fluid & citric acid intake & repeat metabolic work up. Patient increased drinking fluids. Patient is 10 weeks . Pt is scheduled for 1yr f/u w/KUB on 01/01/23 w/PRW. Dysuria: no Incomplete bladder emptying: no Hematuria: no Frequency: no Urgency: no Nocturia: no Stream: no Leaking: no Post void dripping: no Wearing pads/ Depends: no Urge incontinence: no Stress incontinence: yes with laughing and sneezing Incontinence without Sensory Awareness: no Abdominal pain: no Flank pain: no History of Present Illness staff HPI reviewed and agree. Review of Systems PHQ Score Initial Depression Screen Score: 0 no fever, chills, malaise, myalgia. no rash/lesions. no chest pain, palpitations, or SOB. no abdominal pain, nausea, vomiting. no unilateral calf swelling, redness, pain Physical Exam Vitals & Measurements BP: 126/80 HT: 69 in HT: 174 cm WT: 102 kg WT: 224.4 lb BMI: 33.69 General: nontoxic, NAD Mouth: moist mucosa Lungs: normal respiratory effort Cardio: regular rate, good distal perfusion Abdomen: nondistended, no suprapubic distention or tenderness, no CVA tenderness Neurologic: Grossly normal Skin: No rashes or suspicious lesions Assessment/Plan 1. Kidney stone (N20.0: Calculus of kidney) CT done 09/17/21 showed calculus in the left kidney measuring 0.7 cm, along with tiny punctate nonobstructing left renal calculi. KUB 01/27/22 persistent 7 x 5 mm density projecting over inferior pole of kidney favoring a stone. Metabolic workup done 01/25/22 showed very low urine volume & low citrate. Repeat metabolic work up shows urine volume increased but still needs doubled-tripled & citrate has improved. Pt aware of goals. Will continue to work on increasing her fluid intake. Follow up in 6 months with KUB. No need to repeat met workup at this time, but pt to update on how she is doing with her fluid intake at that appt. All questions/concerns were discussed. Pt. to call the office if she encounters any issues prior. Pt. acknowledges understanding. 2. Chronic cystitis (N30.20: Other chronic cystitis without hematuria) UA today neg, trace RAOUL. Denies infections since last encounter. Denies current UTI sx Follow-up With When Contact Information ISABELL CORREIA, FLORES Gonzalez, URL [address] [place] [address] Additional Instructions: 6 months w/ KUB Patient Education Kidney Stones, Micu-qk-Kbok Documentation recorded by the scribcarlos Gil accurately reflects the services(s) I performed and decisions made by me. Authenticated by Flores Whyte PA-C on 05/30/2022 14:39:47. I, Desirae Gil, personally scribed for Flores Whyte PA-C on 05/30/2022 14:36:45. . Problem List/Past Medical History Ongoing Bilateral kidney stones BMI 30.0-30.9,adult Chronic cystitis History of kidney disease History of ureteral obstruction Hydronephrosis Kidney stone Nocturia Personal history of urethral stricture Renal mass Smoker.. Stress incontinence Ureteral stricture Historical Kidney stones UTI (lower urinary tract infection) Procedure/Surgical History Nephrostomy tube (05/11/2015), Cystoscopy (04/14/2015), Cystoscopy (03/08/2015), cystoscopy, urethral dilatation, right retrograde pyelogram, right double J ureteral stent placement under fluoroscopic guidance (10/26/2014), section (09/05/2014), Exploratory laparotomy. Medications Adipex-P, 37.5 mg, Oral, Daily, Not taking Allergies Keflex (Unknown) Social History Alcohol - Denies Alcohol Use, 09/03/2012 Current, 04/09/2020 Current, 1-2 times per month, 09/14/2019 Current, 05/16/2019 Substance Abuse - Denies Substance Abuse, 09/03/2012 Current, 04/09/2020 Current, 05/16/2019 Tobacco - Low Risk, 12/08/2019 5-9 cigarettes (between 1/4 to 1/2 pack)/day in last 30 days Tobacco Use:., 08/25/2021 Former smoker, quit more than 30 days ago Tobacco Use:., 11/30/2020 4 or less cigarettes(less than 1/4 pack)/day in last 30 days Tobacco Use:., 05/08/2020 4 or less cigarettes(less than 1/4 pack)/day in last 30 days Tobacco Use:., 04/09/2020 10 or more cigarettes (1/2 pack or more)/day in last 30 days Tobacco Use:. Cigarettes, Yes, 03/16/2020 Former smoker, quit more than 30 days ago Tobacco Use:. Cigarettes, 12/18/2019 Cigarettes, 09/14/2019 10 or more cigarettes (1/2 pack or more)/day in last 30 days Tobacco Use:. Cigarettes, 05/16/2019 10 or more cigarettes (1/2 pack or more)/day in last 30 days Tobacco Use:., 05/16/2019 Current Every Day Smoker, Cigarettes, 10/24/2014 (more content not included)... Normal [facility] Comment on above: Result Comment: Elec tronically Signed By: FLORES WHYTE PA-C\.br\Date and Time Signed: 05/30/22 14:39 EDT\.br\Electronically Co-Signed By: Desirae Gil\.br\Date and Time Co-Signed: 05/30/22 14:36 EDT BOX TEST SENT OUTon 05-30-19 23 SENT TO REF LAB 05/29/2022 Normal [facility] Comment on above: Performed By: #### M AG24 #### [facility] [address] [place] [address] Dr. Anthony Oneill CBC AUTO DIFFon 05-29-2022 BASO # 0.0 103/ul Normal 0.0-0.1 [facility] Comment on above: Performed By: #### H CVPCRR #### [facility] [address] [address] [address] Anthony Oneill Basophils/100 WBC (Bld) 0.4 % Normal 0.2-2.0 [facility] Comment on above: Performed By: #### H CVPCRR #### [facility] [address] [place] [address] Dr. Anthony Oneill EO # 0.1 103/ul Normal 0.0-0.7 [facility] Comment on above: Performed By: #### H CVPCRR #### [facility] [address] [place] [address] Dr. Anthony Oneill Eosinophils/100 WBC (Bld) 0.7 % Critically low 0.9-7.0 [facility] Comment on above: Performed By: #### H CVPCRR #### [facility] [address] [place] [address] Dr. Anthony Oneill Erythrocyte distribution width (RBC) [Ratio] 14.3 % Normal 11.0-15.0 [facility] Comment on above: Performed By: #### H CVPCRR #### [facility] [address] [place] [address] Dr. Anthony Oneill Hematocrit (Bld) [Volume fraction] 37.5 % Normal 36.0-48.0 [facility] Comment on above: Performed By: #### H CVPCRR #### [facility] [address] [place] [address] Dr. Anthony Oneill Hemoglobin (Bld) [Mass/Vol] 12.4 g/dL Normal 12.0-16.0 [facility] Comment on above: Performed By: #### H CVPCRR #### [facility] [address] [place] [address] Dr. Anthony Oneill IG # 0.03 10e3/ul Normal 0.00-0.03 [facility] Comment on above: Performed By: #### H CVPCRR #### [facility] [address] [place] [address] Dr. Anthony Oneill IG % 0.3 % Normal 0.0-0.[address] [facility] Comment on above: Performed By: #### H CVPCRR #### [facility] [address] [place] [address] Dr. Anthony Oneill LYMPH # 2.9 103/ul Normal 1.2-3.[address] [facility] Comment on above: Performed By: #### H CVPCRR #### [facility] [address] [place] [address] Dr. Anthony Oneill Lymphocytes/100 WBC (Bld) 31.9 % Normal 20.5-60.0 [facility] Comment on above: Performed By: #### H CVPCRR #### [facility] [address] [place] [address] Dr. Anthony Oneill MANUAL DIFF REQ NO Normal [facility] Comment on above: Performed By: #### H CVPCRR #### [facility] [address] [place] [address] Dr. Anthony Oneill MCH (RBC) [Entitic mass] 28.9 pg Normal 26.7-34.0 [facility] Comment on above: Performed By: #### H CVPCRR #### [facility] [address] [place] [address] Dr. Anthony Oneill MCHC (RBC) [Mass/Vol] 33.1 g/dL Normal 29.9-35.[address] [facility] Comment on above: Performed By: #### H CVPCRR #### [facility] [address] [place] [address] Dr. Anthony Oneill MCV (RBC) [Entitic vol] 87.4 fL Normal 81.0-99.0 [facility] Comment on above: Performed By: #### H CVPCRR #### [facility] [address] [place] [address] Dr. Anthony Oneill MONO # 0.5 103/ul Normal 0.3-0.8 [facility] Comment on above: Performed By: #### H CVPCRR #### [facility] [address] [place] [address] Dr. Anthony Oneill Monocytes/100 WBC (Bld) 5.4 % Normal 1.7-12.[address] [facility] Comment on above: Performed By: #### H CVPCRR #### [facility] [address] [place] [address] Dr. Anthony Oneill NEUT # 5.6 103/ul Normal 1.4-6.[address] [facility] Comment on above: Performed By: #### H CVPCRR #### [facility] [address] [place] [address] Dr. Anthony Oneill Neutrophils/100 WBC (Bld) 61.3 % Normal 43.0-75.0 [facility] Comment on above: Performed By: #### H CVPCRR #### [facility] [address] [place] [address] Dr. Anthony Oneill Platelet mean volume (Bld) [Entitic vol] 10.6 fL Normal 9.5-13.5 [facility] Comment on above: Performed By: #### H CVPCRR #### [facility] [address] [place] [address] Dr. Anthony Oneill PLT 305 103/ul Normal 150-450 [facility] Comment on above: Performed By: #### H CVPCRR #### [facility] [address] [place] [address] Dr. Anthony Oneill RBC 4.29 106/ul Normal 4.20-5.40 [facility] Comment on above: Performed By: #### H CVPCRR #### [facility] [address] [place] [address] Dr. Anthony Oneill WBC 9.1 103/ul Normal 4.0-11.0 [facility] Comment on above: Performed By: #### H CVPCRR #### [facility] [address] [place] [address] Dr. Anthony Oneill CULTURE URINEon 05-29-2022 CULTURE URINE Culture Observations : LIGHT GROWTH OF MIXED GENITAL BRITNI. NO POTENTIAL PATHOGENS SEEN. Normal [facility] Comment on above: Performed By: #### H CVPCRR #### [facility] [address] [place] [address] Dr. Anthony Oneill DRUG SCREEN RAPID (URINE)on 05-29-2022 AMP Negative Normal NEGATIVE [facility] Comment on above: Performed By: #### C REA24U, NA24U #### [facility] [address] [place] [address] Dr. Anthony Oneill BAR Negative Normal NEGATIVE [facility] Comment on above: Performed By: #### C REA24U, NA24U #### [facility] [address] [place] [address] Dr. Anthony Oneill BUP Negative Normal NEGATIVE [facility] Comment on above: Performed By: #### C REA24U, NA24U #### [facility] [address] [place] [address] Dr. Anthony Oneill BZO Negative Normal NEGATIVE [facility] Comment on above: Performed By: #### C REA24U, NA24U #### [facility] [address] [place] [address] Dr. Anthony Oneill ISABELLA Negative Normal NEGATIVE [facility] Comment on above: Performed By: #### C REA24U, NA24U #### [facility] [address] [place] [address] Dr. Anthony Oneill CUT-OFFS SEE BELOW Normal [facility] Comment on above: Result Comment: AMP (Amphetamine): 500ng/mL, BAR (Barbituates): 200 ng/mL, BZO (Benzodiazepines): 150 ng/mL, BUP (Buprenorphine): 10 ng/mL, ISABELLA (Cocaine): 150 ng/mL, mAMP (Methamphetamine): 500 ng/mL, MTD (Methadone): 200 ng/mL, OPI (Opiates): 100 ng/mL, OXY (Oxycodone): 100 ng/mL, PCP (Phencyclidine): 25 ng/mL, PPX (Propoxyphene): 300 ng/mL, THC (Cannabinoids): 50 ng/mL, TCA (Trycyclic Antidepressants): 300 ng/mL Performed By: #### C REA24U, NA24U #### [facility] [address] [place] [address] Dr. Anthony Oneill DRUG CUT HEADER DRUG CLASS TEST SYST EM CUT-OFF CONCENTRATIONS ARE FOLLOWS: Normal [facility] Comment on above: Performed By: #### C REA24U, NA24U #### [facility] [address] [place] [address] Dr. Anthony Oneill mAMP Negative Normal NEGATIVE [facility] Comment on above: Performed By: #### C REA24U, NA24U #### [facility] [address] [place] [address] Dr. Anthony Oneill MTD Negative Normal NEGATIVE [facility] Comment on above: Performed By: #### C REA24U, NA24U #### [facility] [address] [address] [address] Anthony Oneill OPI Negative Normal NEGATIVE [facility] Comment on above: Performed By: #### C REA24U, NA24U #### [facility] [address] [address] [address] Anthony Oneill OXY Negative Normal NEGATIVE [facility] Comment on above: Performed By: #### C REA24U, NA24U #### [facility] [address] [address] [address] Anthony Oneill PCP Negative Normal NEGATIVE [facility] Comment on above: Performed By: #### C REA24U, NA24U #### [facility] [address] [place] [address] Dr. Anthony Oneill PPX Negative Normal NEGATIVE [facility] Comment on above: Performed By: #### C REA24U, NA24U #### [facility] [address] [address] [address] Anthony Oneill TCA Negative Normal NEGATIVE [facility] Comment on above: Performed By: #### C REA24U, NA24U #### [facility] [address] [place] [address] Dr. Anthony Oneill THC Negative Normal NEGATIVE [facility] Comment on above: Performed By: #### C REA24U, NA24U #### [facility] [address] [place] [address] Dr. Anthony Oneill GLYCOHEMOGLOBIN A1Con 2022 ADA RECOMMENDATION SEE BELOW Normal [facility] Comment on above: Result Comment: ADA RECOMMENDED LIMIT 4.0 - 6.0 ADA THERAPEUTIC TARGET < 7.0 ACTION SUGGESTED > 7.0 Performed By: #### M AG24 #### [facility] [address] [place] [address] Dr. Anthony Oneill Glucose [Mass/Vol] 114 mg/dL Normal [facility] Comment on above: Performed By: #### M AG24 #### [facility] [address] [address] [address] Anthony Oneill HbA1c (Bld) [Mass fraction] 5.6 % Normal 4.5-6.2 [facility] Comment on above: Performed By: #### M AG24 #### [facility] [address] [address] [address] Anthony Oneill TYPE AND SCREENon 05-29-2022 TYPE AND SCREEN Negative Normal [facility] Comment on above: Performed By: #### H CVPCRR #### [facility] [address] [address] [address] Anthony Oneill US PREG TVon 05-29-2022 US PREG TV EXAMINATION: US PREG TV HISTORY: Missed period COMPARISON: No relevant comparison available. FINDINGS: GESTATIONAL SAC: Present and normal appearing. YOLK SAC: Present and normal appearing. POLE: Present and normal appearing. CARDIAC: Present. UTERUS: Normal size and appearance. OVARIES: Right: Not seen. Left: Corpus luteal cyst. CERVIX: 4.8 cm in length and closed. CUL-DE-SAC: Normal. OTHER: None. AGE BY LMP: 10 weeks 1 day KRANTHI BY LMP: 12/24/2022 AGE BY US CRL: 9 weeks 4 days KRANTHI BY US CRL: 12/28/2022 IMPRESSION: 1. Single live intrauterine . Electronically authenticated by: PHILLIP HOLLAND Date: 2022-05-29 21:[address] [facility] Reportson 05-26-2022 Lab Reports [id number] 0CD:127 Normal [facility] OXALATE 24HR URINEon 023 Oxalates, Urine 17 mg/L Normal Undefined [facility] Comment on above: Performed By: #### C REA24U, NA24U #### [facility] [address] [place] [address] Dr. Anthony Oneill Oxalates, Urine 24hr 19 mg/24 hr Normal 4-[address] [facility] Comment on above: Performed By: #### C REA24U, NA24U #### [facility] [address] [address] [address] Anthony Oneill CITRATE URINE 24HRon 023 Citric Acid, U, 24hr 739 mg/24 hr Normal 320-1240 [facility] Comment on above: Result Comment: This test was developed and its performance characteristics determined by [facility]. It has not been cleared or approved by the Food and Drug Administration. Performed By: #### M AG24 #### [facility] [address] [address] [address] Anthony Oneill Citric Acid, Urine 672 mg/L Normal Undefined [facility] Comment on above: Performed By: #### M AG24 #### [facility] [address] [place] [address] Dr. Anthony Oneill MAGNESIUM 24HR URINEon 05-12 Magnesium 24hr Urine 85.8 mg/24 hr Normal 12.0-293.0 [facility] Comment on above: Performed By: #### H CVPCRR #### [facility] [address] [place] [address] Dr. Anthony Oneill Magnesium UR 7.8 mg/dL Normal Not Estab. [facility] Comment on above: Performed By: #### H CVPCRR #### [facility] [address] [place] [address] Dr. Anthony Oneill PHOSPHORUS 24HR URINEon 04-20 Phosphorus, Urine 57.0 mg/dL Normal Not Estab. [facility] Comment on above: Performed By: #### P HOS 24 #### [facility] [address] [place] [address] Dr. Anthony Oneill Phosphorus, Urine 24hr 627 mg/24 hr Normal 261-1078 [facility] Comment on above: Performed By: #### P HOS 24 #### [facility] [address] [place] [address] Dr. Anthony Oneill PTH INTACTon 05-12-2022 PTH, Intact 29 pg/mL Normal 15-65 [facility] Comment on above: Performed By: #### M AG24 #### [facility] [address] [place] [address] Dr. Anthony Oneill URIC ACID 24 HR URINEon 04-20 Uric Acid, Urine 39.7 mg/dL Normal Not Estab. [facility] Comment on above: Performed By: #### R PRQ #### [facility] [address] [place] [address] Dr. Anthony Oneill Uric Acid, Urine 24hr 436.7 mg/24 hr Normal 173.7-902. 1 [facility] Comment on above: Performed By: #### R PRQ #### [facility] [address] [place] [address] Dr. Anthony Oneill CALCIUM 24 HR URINEon 2022 CALC, 24 HR UR 309.1 mg/24 hr Critically high 100.0-300.0 [facility] Comment on above: Performed By: #### C REA24U, NA24U #### [facility] [address] [place] [address] Dr. Anthony Oneill UR CALCIUM 28.1 mg/dL Critically high 5.1-21.0 [facility] Comment on above: Performed By: #### C REA24U, NA24U #### [facility] [address] [place] [address] Dr. Anthony Oneill CREA 24 HR URINEon 3 CREA, 24 HR UR 902.66 mg/24 hr Normal 800.00-1,8 00 .00 [facility] Comment on above: Performed By: #### H CVPCRR #### [facility] [address] [place] [address] Dr. Anthony Oneill URINE CREAT 82.06 mg/dL Normal 20.00-300.00 [facility] Comment on above: Performed By: #### H CVPCRR #### [facility] [address] [place] [address] Dr. Anthony Oneill ELECTROLYTESon 05-10-2022 Anion gap [Moles/Vol] 13.3 mmol/L Normal [facility] Comment on above: Performed By: #### E LEC #### [facility] [address] [place] [address] Dr. Anthony Oneill Chloride [Moles/Vol] 101 mmol/L Normal 98-107 [facility] Comment on above: Performed By: #### E LEC #### [facility] [address] [place] [address] Dr. Anthony Oneill CO2 [Moles/Vol] 25.1 mmol/L Normal 21.0-32.0 [facility] Comment on above: Performed By: #### E LEC #### [facility] [address] [place] [address] Dr. Anthony Oneill Potassium [Moles/Vol] 3.4 mmol/L Critically low 3.5-5.1 [facility] Comment on above: Performed By: #### E LEC #### [facility] [address] [place] [address] Dr. Anthony Oneill Sodium [Moles/Vol] 136 mmol/L Normal 136-145 [facility] Comment on above: Performed By: #### E LEC #### [facility] [address] [place] [address] Dr. Anthony Oneill SODIUM 24 HR URINEon 023 NA, 24 HR UR 133 mmol/24 hr Normal 40-220 [facility] Comment on above: Performed By: #### H CVPCRR #### [facility] [address] [place] [address] Dr. Anthony Oneill Sodium (U) [Moles/Vol] 121 mmol/L Critically high 30-90 [facility] Comment on above: Performed By: #### H CVPCRR #### [facility] [address] [place] [address] Dr. Anthony Oneill UR TOT VOL 1100 ml/24 HR Normal [facility] Comment on above: Performed By: #### H CVPCRR #### [facility] [address] [place] [address] Dr. Anthony Oneill Performed By: #### C REA24U, NA24U #### [facility] [address] [place] [address] Dr. Anthony Oneill Coding Summary.on 03-14-2022 Coding Summary. CD:[id number] Gh 0bWw+PGhlYWQ+RO1NPJZtB 65snFExqG6QO7vQVR0AGOE MMJSEYZ4VLA2xyWX6BBlyO 2VybiAv MuftyZNkMK80OKb4VIH5qH rwRLlgbS1dvMSzB9s8WxEh WP28aA92SKwbVEVqIyO6Yy ZpbjsgbWFy W4bcXeEhjSKqAvu+PHRhYm xlIHdpZHRoPScxMDAlJyBz jGfcUW0rVj0dSSYdIMSqiB xhcHNlOiBj t1gcIGVbJHbvXA6lfZljE8 GfdLJ2KQRhk5y4In73cRH+ VRMqWNN3fVdpSXhsm300Zj Vux7mvHNL0 aCDyBIekTRK5H50co6B5FV HeTEPhCKD4hHW3dL2bsVpu eultC9FfyOVcAeL3XHM5fQ PftC9sqGut qkhzsY4xDov+T76HFS2PLY LUUO0FWpe3T9BeJrnlzNO+ EW12YXKmRL70bRDjjFKxb0 rsuVy2FpBo GCPfZYR0pUoyJTtdj8JhVX AdQ25fnKSqz1F1OFScnUeo tKBqGmMyxMT2eX9zSYrwep fno7yaxsxs Doojy3agmr64eB51N39gAW jlEWQiBUX6CEYtWQAqoUyx pf7guX2aGv2+ESnbe3ven8 ndkCt5PbTx EKYcjlMdcKbdZUK3a3NgKg 26X6GixPrhm4VuKfl0md52 wSWcz5S7aNK9HSuzRFIkwY 8aKXmxZmY4 OLLmWvEhdO26gHImDPgcPv 7dmBftaBpjEG4nMIAirmth LORpkM0iCPEbeKJrjCnmZM 4wNTBpbjtm w858DmUcEWU4OZVyeNPjF6 HelZ7xDlFpGDTtPUXlG7Mb uZLyPLnzO990TGzxZgO1XT PtpjLpT2Ig STSsaJemBtA5a0V6Zk1Xh8 NwwbgwFHX9SFuqDMDiTtO0 TnUnVhY1K5TjHti1BOCmfB kyNB0vW8Dc OHKswxiebcwawZY7LVRwFI CqqF00bBQbXKehMa4tw3E0 k315UETvVJSvaV73Vx9grU ogMTBwdCBU jL5jdngrh5zuympkGkDaLC MdIAx2HVy3LYOxxCuzGwJb TWF5DrI6BWB9jVTgxK8ezX fdynhxyH4r Oyc+M18tbE1xTFW5JJG1nd skISFjhqGbQE22RJ17K6Xc PjwvdGFibGU+PGRpdiBzdH gbPX9uDgEz u0fnb7XbUXqbI2PzPMEmLQ tpUxu6DRNhYDW2lPW9tZ8j BVYoCQvwp4M8aGT1P9Hwfs Cdcn5fn9ju ZFKoUSxiY55rqTDen9T2HN BukJF1APYwePfqHiXmbD20 Oyc+PPTsuLxld8LgXuxjt9 qgq1kjcXy9 JiCvRBZiheAetDscIPO7j2 WpZj36E58dRUxxTBCpFVGz MNUcSOLugNuurf9vsW1oSt 8+PGNvbCB3 cCB0dH8hUKFnHnK8APpnI0 12LtNbfESkKojot6gdw9yl kHb4SuDtOPBlvnUucDceZV E3u6AjMv27 D59aQYxmRRFyKNUpVYEwNK BefNuihw3teJ5xQs2+PC9j m6lkad58wU43jGX+PHRkIH H5gUpvGGno NPCgrK6yVIziAmW6HBOcQm BtyW90rHMnIXspIm9xuDlz hLraQC0jLBVgvyowa550Ee Rmi1scRYMi zVPqHCykDMH5Z45iw6W4JV HfVGNdHFJ8pBA0nE4zqGzw bjogbGVmdDsgdmVydGljYW ccSAcpD892 IHRvcDsnPlBhdGllbnQgTm GyQGp8R9PdDdq2EPSphGjd MA7giOLgBBjtRp9ucWlkmC pnJR4qJJZl odcai712XsVpz9zmSYTsrW RhXIhsVZZ8E39ry9M9JLZg BADuFPX2pGV3rH3eiQsoir ogbGVmdDsg khZbaUmaJVnqSMskY445DD RvcDsnPkJpcnRoIERhdGU6 SA68FF12nCDvy3Y1tFT1Z9 BhZGRpbmct ypvsyKI9KZEnJOIseI25Fg 8hxVdvHl2qDEAtTHM5YFQe gQOwV9GihG8uHtXoUNRcRM ShA0OsxIUv EMjjZ145VNuuWaW3NVZmwr TiZ6TbCZNwmJtbFfX3y6S8 Zl3BD8N8XV92CT72oKFkt8 Q0xIG8U1Id AWTcmuzgpwxvkFA8LHBiIK KwiZ37Si7ogSrtHl4qYVFm XUT4WPGfsOKzH2LmhP2lOg AjMDAwMDAw H4EueBSfJDupF869INvcKz V7NDZdcqRiD0SvWVSkmSsv JiB4e3C7Uq4OKGr6ZD18IC 22fHEhj0B4 lXZ8Q6XmMNPeqjptxfnprA S7WAFaNJUtsU67Vi3xpUjc Hs0sYNMtFKH6ZWQpsYHvX8 TdsW4oYwYb FKIbUDQeV1DnzXHwEVivK9 76VDizKmH8SNRabaJxN7La WJSpvUieQxQ0w0W5Xu0RJA XsKZ40BMW9 yBX6VD48ZZ78H4LsMnhldE FibGU+PHRhYmxlIHdpZHRo CHswQAUbToGfhTejGD6jVa 9yZGVyLWNv vEewcFOiRcWgu4eoQKOqEC wjWZ7zdHakX7EweZB3XIVy h1x3Zu92X58oJ5CuhFA+PG IllTC5pNT5 hQ8tUkTwFkM2KGrmB823If WmxLBeSgcrp7nju6rrsMz4 NyC7KRBoszDenIwsQEW5r9 UnVi23O24w IHdpZHRoPSIxNSUiIHZhbG itxx0zjK2pDp2+PGNvbCB3 zDB5zQ5cClKlXiH3VArvK6 49InRvcCIv Iwbkh7vtz4fahSr1XaDiDX FlabObhBajPMD2q4RlXu80 Q8NqdWcih7PoAsx0qi48rF Cel5R7lWN9 H1GtQVTtxxbhuXYtsKdrGK 3sFKApgqusGXCalT9lKLWu Q3o5QhQhAnG2XBstS5Rlpm R1RPViwATr IVfqRSU1Q72qr6D8XWWhNH QiKYG8xGZ4zI2yyVanwgkm bGVmdDsgdmVydGljYWwtYW hjH262DNJx xWnbAPUqeC2hQPMiePQayS vyMD0pXSYcsllnZmCCC1SB QywgSkVOTklGRVIgTDwvdG Q+PHRkIHN0 mIgqJKniQVNnwE5cLESoD5 n1FwBqHyC9ORjdR8RfICCn ldqbOu26pM8wCqHpZeE1ZR gqL8UianD9 QQRqbRJnNPikFWE0B50zd7 P2IIIvBQJlDVE0gFN9zH0z bGlnbjogbGVmdDsgdmVydG ljYWwtYWxp X630CLOgnBjsLvW0UnUgSa N5RYn6G6WxPww3LCIujVlk IN4gxBXyUOooIf0kkOdatA sySQ6mZCNf pptoZIMviW0pEYTijDGyeQ hkOI1gBPNzmowhe651EyIs IDR6DKKbbJIfD0TdaA3kGx AjMDAwMDAw G2ClvHZhCQnxL973TJhrLs X0LOZkppRvN0VrRBSciLcv ZdU5g6R5Om1xUPVAPTIzyz wvdGQ+PHRk MYC2gPamUIssGFCczQ6bEM EcD4y6WjSvAeD0SEfwW7Px MHJpldozMl42bR9sTqMmSh B7JSleS9Uy eaT3OMXsjKYlJWmdMKO5A9 3lr1R7DIKaMFQoTUV3kFQ9 rW2ukQiwxfywzYTtwLlomg VydGljYWwt ZCooA657ZHShrGpuAfIuqF FsZTwvdGQ+GXJqCSO1pUwi IFruZNUmxK9wCBAoX8m6Vd QhYdP2JBui P7YjTJXdtccuMj11yU9kPq FnRjG0CWakQ7MetcD6QPYo xRAgTErqMCC4J63sx4Q2FE MwMDAwMDA7 qZS9iQ3hzXotepvehJTzlV dyupGnpUemFWcnRKynS947 GYQveEvzHeQrNGDwSY1tfH wvdGQ+PC90 qf84R3KmWdewAjt9SSBtVE X0kQH1iQ3lZZTeSGbeb6Y6 jON0M3LzqrOnhd9xc0xdTM OsQVlyC19l kYOwy8Y5FSPbcBI1YJKbwJ eeNxSmbM78Lov+PGNvbGdy i2MrTypcz8pzf8tbfPr9Fh MwJSIgdmFs rPcoNPR1j0NjWb17T17xWG dpZHRoPSIzMCUiIHZhbGln rr9mkZ8aEu7+CACyyOW5mM K1pP8vBpVd MsG7JHfmP165VpJynEXfId vmm8yqr5jfaKr6RxXyZHSo mqSjlPifBLZ4d7NqZk97F1 QzhFkvc9Ab Dwg8tk31uQWnh6T3dJT3L5 WdVUOfhrwajATwvOwkDI8t VWMrtwiqWBLdxN7vOJClX7 i3LeVeCeI2 XSbnU5XoznG8LCTiqGEiAW RjnHEVqZ8mpzxso7xvsmce YwNhFWTlCLz3BLz1ZIExzU duOiBsZWZ0 MoJ6MRC1vPRjcP9cgIkvom smxS3wBwr+OAo6h9stkJTs KD4kqSX2DP32OA24zQQtu6 P6wFB5D8Ya IPXrkgsxhbrgoJR7EGHvUL PpwT92Uj9gzUfmJz3iJMMt KLW9GQPerGPbO0YzeZ5qCq AjMDAwMDAw V3TbwEAwPRigU976HIiuJq G6KAMxkcVeY3TaTMBkiBhp DvG4t2T4Sr4FVV10MS67BV 99vIGid9I4 aTK1E0LbCKIpzwhsypxoaI I5HWFnSMButO40Ts7kqTsw Wy4dQVOoSST7XQPvvHMjL0 AxuG9nSuTk LIJlHHOhG7UwxDEmRUeuT6 67NZtnRxJ7KBZygeSpS4Wm GJHlkUmaLdA0n2W4Rb9CDu 65HS82VU46 tOCdi3E5zSB9O2MwFVZpeu rdvcvxdDE7VOSpFRFttD94 Jc5xrBfzQu4oMFJfWPI8PM YuoHYiO2Qn jY8eVnCmAMVsSGQfN8FdtA BsJNuuU864NGqdEtL3GYYo mbYzE7NmXPMfpDozQoH9r2 C9Jj6EXBdk oit3E2RaDotzzVT+PC90YW SwAP24gEIlzLOxd7gggRz7 HfWgNLHkOZF2eIpfAUtvm9 ShKQGkP53a bGFw (more content not included)... Normal [facility] Consent for Treatmenton -2 Consent for Treatment [id number] 0CD:127 Normal [facility] Discharge Instructionson Discharge Instructions [id number] 0CD:127 Normal [facility] ED Clinical Summaryon 2021 ED Clinical Summary [place] [id number] ED Clinical Summary Person Information Name: FLORES BORGES [facility] Age: 36 Years : 1985 Sex: Female Language: Greek PCP: DOMO KLINE DO Marital Status: Single Phone: [phone] Visit Id: Visit Reason: Toe pain-swelling; TOE PAIN/ SWELLING Speciality: Acuity: 4 Enc Type: Emergency Med Service: Emergency Arrival: 03/13/2022 02:35:19 Discharge: 03/13/2022 03:30:42 LOS: 000 00:55 Checkin: 03/13/2022 02:35:19 Checkout: 03/13/2022 03:30:42 Dispo Type: Home (Routine DC) EVENTS: Event Name Event Status Request Date/Time Start Date/Time Complete Date/Time Arrive Complete 03/13/2022 02:35:19 03/13/2022 02:35:19 03/13/2022 02:35:19 Document Home Meds Request 03/13/2022 02:35:19 Triage Complete 03/13/2022 02:35:19 03/13/2022 02:42:38 03/13/2022 02:42:38 Bed Assign Complete 03/13/2022 02:38:00 03/13/2022 02:38:00 03/13/2022 02:38:00 Dr Exam Complete 03/13/2022 02:38:00 03/13/2022 02:38:37 03/13/2022 02:38:37 RN Exam Complete 03/13/2022 02:38:00 03/13/2022 02:45:27 03/13/2022 02:45:27 Registration Complete 03/13/2022 02:38:37 03/13/2022 03:21:45 03/13/2022 03:21:45 X-Ray Complete 03/13/2022 02:45:22 03/13/2022 03:01:16 03/13/2022 03:18:04 Meds Admin Complete 03/13/2022 03:15:43 03/13/2022 03:27:17 Patient Care Complete 03/13/2022 03:15:43 03/13/2022 03:28:42 Discharge Complete 03/13/2022 03:16:35 03/13/2022 03:31:06 03/13/2022 03:31:06 Wet Read Request 03/13/2022 03:18:04 Reg Complete Request 03/13/2022 03:21:45 Reg Bed Request Complete 03/13/2022 03:21:45 03/13/2022 03:21:45 03/13/2022 03:21:45 Transfer Complete 03/13/2022 03:31:06 03/13/2022 03:31:06 03/13/2022 03:31:06 ADDRESS: [address] [phone] PHYS DOC NOTES: MEDICAL INFORMATION: Prescriptions Given: Medications to Continue with No Changes Other Medications phentermine (Adipex-P) 37.5 Milligram By Mouth every day. PATIENT EDUCATION INFORMATION: Instructions: Toe Fracture, [id number] Follow up: With: Address: When: Leigh Gonzalez [address] [place] [id number] Business (1) In 3 days 03/16/2022 Comments: Use the pain medication every 6 hours as needed for pain. Please follow-up with orthopedics for further evaluation management. Please return to ED for any new or worsening symptoms. With: Address: When: DOMO TRAN, [facility] [address] [place] [address] Business (1) In 3 days 03/16/2022 DIAGNOSIS: Toe fracture Normal [facility] ED Note-Physicianon 03-13-20 ED Note-Physician Basic Information Time Seen: Jose Teran DO 03/13/2022 02:38 Chief Complaint Pt. presents to the ed with c/o left pinky toe pain after hitting on the bathroom door frame around 5 pm. History of Present Illness Patient is a 36-year-old female past medical history of kidney stones presenting to the ED for evaluation of left fifth toe pain. Patient states she hit it on the bathroom door frame around 5 PM is been having pain since that time. Arnua conway has been taking Tylenol, ibuprofen at home with minimal improvement of her symptoms. Patient also notes pain along the distal fifth metatarsal. Denies any other injuries. Review of Systems General: Denied fever, chills, weight loss HEENT: Denied Congestion, rhinorrhea, sore throat Cardiac: Denied Chest pain, palpitations, dizziness/lightheadedn ess Respiratory: Denied Dyspnea, cough Extremities: + Left fifth toe pain Neuro: Denied Focal neurologic deficits, vision changes, difficulty with speech Integumentary: Denied rashes or lesions Physical Exam Vitals & Measurements T: 36.5 ?C(Oral) HR: 86(Peripheral) RR: 18 BP: 143/93 SpO2: 99% HT: 172.72 cm WT: 104.5 kg BMI: 35.03 General: Well developed, non toxic appearing, no acute distress HEENT: Head atraumatic, Mucosa moist, hearing grossly normal Neck: No JVD, tracheal deviation Cardiac: Regular rate, rhythm, no murmurs, or gallops, 2+ radial pulses Respiratory: Lungs clear to auscultation B/L, normal respiratory effort Extremities: Bruising and swelling noted of the fifth toe on the left foot, sensation is intact Neurologic: Alert and oriented, speech clear Skin: No rashes or lesions Psych: Appropriate mood and behavior Medical Decision Making Patient is a 36-year-old female presenting to the ED for evaluation of toe pain. Patient nontoxic-appearing on arrival, no acute distress. Does have bruising of the toe. X-ray of the foot is obtained to eval for underlying fracture. Patient's x-ray shows a toe fracture. Patient is given Vista to go in addition to placed in a postop shoe. She is given referral to orthopedics. She is follow-up with her primary care doctor next Sunday. Return to the ED for any new or worsening symptoms. Assessment/Plan Toe fracture (S92.919A: Unspecified fracture of unspecified toe(s), initial encounter for closed fracture) Orders: acetaminophen-hydrocod one, 1 EA, Tab, Oral, Once, Stop date 03/13/22 3:15:00 EST, STAT, Start date 03/13/22 3:15:00 EST Post-op Shoe XR Foot 3+ Views Left Disposition Plan Discharge Prescription List Prescriptions No active prescription medications Follow-up With When Contact Information Leigh Gonzalez In 3 days 03/16/2022 EST [address] [place] [phone]- Business (1) Additional Instructions: Use the pain medication every 6 hours as needed for pain. Please follow-up with orthopedics for further evaluation management. Please return to ED for any new or worsening symptoms. DOMO KLINE In 3 days 03/16/[address] [facility] [place] [address] Business (1) Additional Instructions: Patient Education Toe Fracture, [facility]nn-[id number] Problem List/Past Medical History Ongoing Bilateral kidney stones BMI 30.0-30.9,adult Chronic cystitis History of kidney disease History of ureteral obstruction Hydronephrosis Kidney stone Nocturia Personal history of urethral stricture Renal mass Smoker.. Stress incontinence Ureteral stricture Historical Kidney stones UTI (lower urinary tract infection) Procedure/Surgical History Nephrostomy tube (05/11/2015), Cystoscopy (04/14/2015), Cystoscopy (03/08/2015), cystoscopy, urethral dilatation, right retrograde pyelogram, right double J ureteral stent placement under fluoroscopic guidance (10/26/2014), section (09/05/2014), Exploratory laparotomy. Medications Inpatient No active inpatient medications Home Adipex-P, 37.5 mg, Oral, Daily Allergies Keflex (Unknown) Social History Alcohol - Denies Alcohol Use, 09/03/2012 Current, 04/09/2020 Current, 1-2 times per month, 09/14/2019 Current, 05/16/2019 Substance Abuse - Denies Substance Abuse, 09/03/2012 Current, 04/09/2020 Current, 05/16/2019 Tobacco - Low Risk, 12/08/2019 5-9 cigarettes (between 1/4 to 1/2 pack)/day in last 30 days Tobacco Use:., 08/25/2021 Former smoker, quit more than 30 days ago Tobacco Use:., 11/30/2020 4 or less cigarettes(less than 1/4 pack)/day in last 30 days Tobacco Use:., 05/08/2020 4 or less cigarettes(less than 1/4 pack)/day in last 30 days Tobacco Use:., 04/09/2020 10 or more cigarettes (1/2 pack or more)/day in last 30 days Tobacco Use:. Cigarettes, Yes, 03/16/2020 Former smoker, quit more than 30 days ago Tobacco Use:. Cigarettes, 12/18/2019 Cigarettes, 09/14/2019 10 or more cigarettes (1/2 pack or more)/day in last 30 days Tobacco Use:. Cigarettes, 05/16/2019 10 or more cigarettes (1/2 pack or more)/day in [place] (more content not included)... Normal [facility] Comment on above: Result Comment: Elec tronically Signed By: Jose Teran DO\.br\Date and Time Signed: 03/13/22 03:19 EST ED Patient Education Noteon 03-13-2022 ED Patient Education Note Orthopedics Toe Fracture A toe fracture is a break in one of the toe bones (phalanges). This may happen if you: ? Drop a heavy object on your toe. ? Stub your toe. ? Twist your toe. ? Exercise the same way too much. What are the signs or symptoms? The main symptoms are swelling and pain in the toe. You may also have: ? Bruising. ? Stiffness. ? Numbness. ? A change in the way the toe looks. ? Broken bones that poke through the skin. ? Blood under the toenail. How is this treated? Treatments may include: ? Taping the broken toe to a toe that is next to it (nita taping). ? Wearing a shoe that has a wide, rigid sole to protect the toe and to limit its movement. ? Wearing a cast. ? Surgery. This may be needed if the: ? Pieces of broken bone are out of place. ? Bone pokes through the skin. ? Physical therapy. Follow these instructions at home: If you have a shoe: ? Wear the shoe as told by your doctor. Remove it only as told by your doctor. ? Loosen the shoe if your toes tingle, become numb, or turn cold and blue. ? Keep the shoe clean and dry. If you have a cast: ? Do not put pressure on any part of the cast until it is fully hardened. This may take a few hours. ? Do not stick anything inside the cast to scratch your skin. ? Check the skin around the cast every day. Tell your doctor about any concerns. ? You may put lotion on dry skin around the edges of the cast. ? Do not put lotion on the skin under the cast. ? Keep the cast clean and dry. Bathing ? Do not take baths, swim, or use a hot tub until your doctor says it is okay. Ask your doctor if you can take showers. ? If the shoe or cast is not waterproof: ? Do not let it get wet. ? Cover it with a watertight covering when you take a bath or a shower. Activity ? Do not use your foot to support your body weight until your doctor says it is okay. ? Use crutches as told by your doctor. ? Ask your doctor what activities are safe for you during recovery. ? Avoid activities as told by your doctor. ? Do exercises as told by your doctor or therapist. Driving ? Do not drive or use heavy machinery while taking pain medicine. ? Do not drive while wearing a cast on a foot that you use for driving. Managing pain, stiffness, and swelling ? Put ice on the injured area if told by your doctor: ? Put ice in a plastic bag. ? Place a towel between your skin and the bag. ? If you have a shoe, remove it as told by your doctor. ? If you have a cast, place a towel between your cast and the bag. ? Leave the ice on for 20 minutes, 2?3 times per day. ? Raise (elevate) the injured area above the level of your heart while you are sitting or lying down. General instructions ? If your toe was taped to a toe that is next to it, follow your doctor's instructions for changing the gauze and tape. Change it more often: ? If the gauze and tape get wet. If this happens, dry the space between the toes. ? If the gauze and tape are too tight and they cause your toe to become pale or to lose feeling (go numb). ? If your doctor did not give you a protective shoe, wear sturdy shoes that support your foot. Your shoes should not: ? Pinch your toes. ? Fit tightly against your toes. ? Do not use any tobacco products, including cigarettes, chewing tobacco, or e-cigarettes. These can delay bone healing. If you need help quitting, ask your doctor. ? Take medicines only as told by your doctor. ? Keep all follow-up visits as told by your doctor. This is important. Contact a doctor if: ? Your pain medicine is not helping. ? You have a fever. ? You notice a bad smell coming from your cast. Get help right away if: ? You lose feeling (have numbness) in your toe or foot, and it is getting worse. ? Your toe or your foot tingles. ? Your toe or your foot gets cold or turns blue. ? You have redness or swelling in your toe or foot, and it is getting worse. ? You have very bad pain. Summary ? A toe fracture is a break in one of the toe bones. ? Use ice and raise your foot. This will help lessen pain and swelling. ? Use crutches as told by your doctor. This information is not intended to replace advice given to you by your health care provider. Make sure you discuss any questions you have with your health care provider. Document Released: 08/21/2008 Document Revised: 05/09/2018 Document Reviewed: 04/16/2018 Elsevier Patient Education ? 2020 [employer] Normal [facility] ED Patient Summaryon 26-2 022 ED Patient Summary [place] [id number] Patient Discharge Instructions Person Information Name: FLORES BORGES Age: 36 Years Arrival Date: 03/13/2022 02:35:19 Discharge Diagnosis: Toe fracture Primary Care Physician: DOMO KLINE DO Provider Information Primary Provider: Jose Teran DO Advanced Sales Promotion Coordinator:None The exam and treatment you received in the Emergency Department were for an urgent problem and are not intended as complete care. It is important that you follow up with a doctor, nurse practitioner, or physician?s lead dental assistant for ongoing care. If your symptoms become worse or you do not improve as expected and you are unable to reach your usual health care provider, you should return to the Emergency Department. We are available 24 hours a day. DEVYN BORGESKYLE Amaral has been given the following list of patient education materials, prescriptions and follow-up instructions: Follow-up Instructions: With: Address: When: Leigh Gonzalez [address] [place], [place] [phone] Business (1) In 3 days 03/16/2022 Comments: Use the pain medication every 6 hours as needed for pain. Please follow-up with orthopedics for further evaluation management. Please return to ED for any new or worsening symptoms. With: Address: When: DOMO KLINE [address] [place], [place] [id number] Business (1) In 3 days 03/16/2022 In the event that this physician does not participate in your insurance network, please consult with your insurance company to find a nearby participating provider. Patient Education Materials: Toe Fracture, Rnkw-qv-Kzst A MESSAGE TO ALL PATIENTS REGARDING OPIOIDS PRESCRIPTION OPIOIDS: WHAT YOU NEED TO KNOW Prescription opioids can be used to help relieve njnewihj-xm-jmfwwx pain and are often prescribed following a surgery or injury, or for certain health conditions. These medications can be an important part of the treatment but also come with serious risks. It is important to work with your healthcare provider to make sure you are getting the safest, most effective care. WHAT ARE THE RISKS AND SIDE EFFECTS OF OPIOID USE? Prescription opioids carry serious risks of addiction and overdose, especially with prolonged use. An opioid overdose, often marked by slowed breathing, can cause sudden . The use of prescription opioids can have a number of side effects as well, even when taken as directed: ? Tolerance?meaning you might need to take more of the medication for the same pain relief ? Physical dependence?meaning you have symptoms of withdrawal when a medication is stopped ? Increased sensitivity to pain ? Constipation ? Nausea, vomiting, and dry mouth ? Sleepiness and dizziness ? Confusion ? Depression ? Low levels of testosterone that can result in lower sex drive, energy, and strength ? Itching and sweating RISKS ARE GREATER WITH: ? History of drug misuse, substance use disorder, or overdose ? Mental health conditions (such as depression or anxiety) ? Sleep apnea ? Older age (65 years and older) ? Avoid alcohol while taking prescription opioids. Also, unless specifically advised by your health care provider, medications to avoid include: ? Benzodiazepines (such as Xanax or Valium) ? Muscle relaxants (such as Soma or Flexeril) ? Hypnotics (such as Ambien or Lunesta) ? Other prescription opioids KNOW YOUR OPTIONS Talk to your health care provider about ways to manage your pain that don?t involve prescription opioids. Some of these options may actually work better and have fewer risks and side effects. Options may include: ? Pain relievers such as acetaminophen, ibuprofen, and naproxen ? Some medication that are also used for depression or seizures ? Physical therapy and exercise ? Cognitive behavioral therapy, a psychological, goal-directed approach, in which patients learn how to modify physical, behavioral, and emotional triggers of pain and stress. IF YOU ARE PRESCRIBED OPIOIDS FOR PAIN: ? Never take opioids in greater amounts or more often than prescribed. ? Follow up with your primary health care provider. o Work together to create a plan on how to manage your pain. o Talk about ways to help manage your pain that don?t involve prescription opioids. o Talk about any and all concerns and side effects. ? Help prevent misuse and abuse o Never sell or share prescription opioids. o Never use another person?s prescription opioids. ? Store prescription opioids in a secure place and out of reach of others (this may include visitors, children, friends, and family). ? Safely dispose of unused prescription opioids: Find your community drug take-back program or your pharmacy mail-back program, or flush them down the toilet, following guidance from the Food and Drug Administration (www.fd (more content not included)... Normal [facility] XR Foot 3+ Views Left 12-2 XR Foot 3+ Views Left Exam Date/Time: 03/13/2022 03:18 EST Reason for Exam: Pain, Traumatic Report IMPRESSION: FRACTURES OF THE PROXIMAL AND DISTAL PHALANGES OF THE FIFTH TOE. EXAM: XR Foot 3+ Views Left COMPARISON: None available HISTORY: Pain since injury. TECHNIQUE: AP, lateral and oblique views of the foot obtained. FINDINGS: Minimally displaced fracture of the distal phalanx of the fifth toe extending into the distal interphalangeal joint. Mildly displaced fracture of the distal metadiaphysis of the fifth proximal phalanx. Associated soft tissue edema. No dislocation. Remaining visualized bones appear intact. FINAL REPORT Dictated: 03/13/2022 8:32 am Franco Garcia DO Signed (Electronic Signature): 03/13/2022 8:32 am Signed by: Franco Garcia DO Transcribed by: DARRIN Technologist: CRISTEL Reyes [facility] Coding Summary.on 02-28-2022 Coding Summary. [id number] Gh 0bWw+PGhlYWQ+XE6EQVVxN 43ihBWhmW0UO5aEUG3NOVO FATWSIY9VCI6yaCB4RNtaL 2VybiAv PywyaHAwKW57AGr9VYN7sW isSKnxwU7tiWKfZ2n1JbWi TT95xR11FPdnWMXfEhF5Wq ZpbjsgbWFy N1yaMjXrhHXdNik+PHRhYm xlIHdpZHRoPScxMDAlJyBz oTgrSX4xPv7vMNAaUVPmoD xhcHNlOiBj x2clHMMvIWkcZU9slSwmP8 GwbHC0RCPzs3l1Ne86oRB+ BGSlFYJ1kJnyYQwkj959Hk Thd7heZQD0 bUFwJMmhZQS2O95fl4D8TU WpERJpCPK8bFW1tL4kjYyc gwvcL9PlfGQoIbT8UGB5bY RsrL0trQyy aplmiW3xMyx+W19BKT1IXL TFLP7RKsn5F3UzTamayAF+ MI00GXIbJE75kJRltREnd0 cbwJi4MmHj XDTiTKU9pNwhRPeyx6ZqLO ClQ78rhEZom0R5LARasUql sZTtRgXggMG3kK1eIKhwbl szj1shpqpr Xocad8juqb63oG33C95dJF ayLLCmHNU1GUIhHNHpuWsi pv4pmA6yGk5+KVntf4pbk8 ehiYt0HrSy PKKtauCdcOgiYIV3l1HoQv 96U3VnkJpsv6TuZrp3wv62 hWWsn4U3lDS6ITfcVUJbuO 8fCTkzPjQ4 BJHdBpYlcL71xUIfYJrnQl 8kuSewlQfyXP8aSXUlutzf EOPgmY2fTASghPEogYwzUU 4wNTBpbjtm n766IdRpUUB8NKOigYRsL4 ItwC3kGoYmXNMxBDGmE9Jy iZMiRGtpM869SEdtIyG8CE AabiSiU9Qg IASnmCtuBzM4v4Z6Vy4We7 QjxzhhPOM7VHaaZKCuQrXg FpThFpC2U9CtVdr3DMOdhW qpLO8eR5Yw LRYzehwygldqyIR4QJIpTI WfzY32qIVrVUjfUk7uq8M5 l597YDNaZBAzwA00Lw8caZ ogMTBwdCBU jU5ovwqit7mkuoiyVsEzPJ NzBSn6YLb4ZPXcqIcwRkXz RSU7XsE1CSI2bUJmsU2xdB akrrsymI5x Oyc+S42ywG1sPNN6VBJ9uc emARCduuMkNG69NM58M8Hp PjwvdGFibGU+PGRpdiBzdH qzGC0kTkMg w3xou7ZfFLqtZ6RsINDuCL nvIri6EKPtWSE5nKE4rI0j TYRxOAqcg6Z6zXA6P4Zjvt Arnw9rm9wx CVYyZRqhH03jkXWao9L0VL ZhvHD9MTNclMvxKfAqxO68 Oyc+ZCXuaUzfu3YjSspxk6 gjp1ensSm7 NzDwENAdptWrsRrhMYL5g6 AcTi42N96dLXvcQFEtREFc HJFiEEInaGfohj1ilH9oTt 8+PGNvbCB3 fAQ8nS8kNLBuWoJ0YLhnN0 56RfWqrCGfHxjek1zrp5vf hQd4RcGrUZIiqwTmdVhxFX K5x8CuSf91 V72gUGflYYXsAEVjDDVpRK SarUyheg4roH0jXi3+PC9j s6dcif80fR56oLY+PHRkIH D9dZbpBWri UGFviL5dVQolXvL0TXFcEy HtjN64pVPtUDuuFr5suVko qNakFT4cIEGjzbtxx708Zq Bns6xgUDJw pWSaOSlsOYK4B43lf5H8LO PcXHPvEEQ5oPJ4dB7pmCru bjogbGVmdDsgdmVydGljYW mzILyrN747 IHRvcDsnPlBhdGllbnQgTm ExCZd0D3UqVcd7LSZieAvc HB3hlCGxNTyrZk5lpWlxbI oxOY6yHWUb nbybv531BrSxg2ilJGBtmF EiHMmhYIO1L90yl7J6GLHw IEIiPIW5tLV7nT5jjWoxwk ogbGVmdDsg oaTdkWvwLMngLRccU616RL RvcDsnPkJpcnRoIERhdGU6 YE24AP52zFAus9E5zYO2P9 BhZGRpbmct llrnyEN9DGQaFYKabR76Jy 3tcWtjAo4eIRRwIUJ6IFKe lCNaQ8XdgQ3zGcLnBTEoBR FzK8PtzZZl GNebJ778HTcjBtH1KPCgvx WxS9OhBMMleLasJhO2q4O0 Sk0FE2Y2SN82DW40xJQvv4 P4eAR5S1Do MOIaicuorhgkzXH3GKYoNO TynU32Wt7ajUojBy1uNHBt VFX7UCFxqMXqY8MvfM8cWl AjMDAwMDAw M7MlrJZtTJiqT375FYffBx P0BZDtjqVfV8UzDPUrfIsv JyI1d2N0Ze5GGQa9FE37AV 54mEMss5C6 vXC7M0MdTIJzswlnjlxgqL Z4TLMkFOTqzF07Tl8ybFms Vn7uPYDvUBY6LOPrhIYxT4 RulS1rEfEd RYFtCJUpI1AcpTKfUMrvZ5 52ACudSsO3BZMetmDcA9Zm BNZjdZphJlZ4s8H9Lg4VGE XoGD38DFI5 vSN9MQ84OZ83L0VjOtrfjH FibGU+PHRhYmxlIHdpZHRo MTmkYTIhRqMdaKdwBI4yCl 9yZGVyLWNv iIhhgSJvRbTgd7bxQTEfRZ pcAB8tkRttF1DvgBZ5QDUw l1h9Km05T68oT4HleRV+PG VexIN8nJT5 mO9bZhNlDbO1UOszS733Kh OkpFBcJsdru0vqe2lxbVn8 KdR7FWQpbuSmiNbgNRL1v8 IjEb45T78u IHdpZHRoPSIxNSUiIHZhbG bque8rsN3wBw5+PGNvbCB3 nMH5bF4lYyXyTfW9DHpuY5 49InRvcCIv Asvfd0ade1nzgQn7SfRwNW AiyaIvyCclFHR2i6HdPf19 N1TluLbbv5RuGkn8ja67sS Ygf3I5wKQ0 X4PlCCCcpwwrjGXnnHrxVZ 4nCHIcemnaRTDriI0fZNBt W2g3MdFhAeM5FMptZ8Mxnz O7PMIjbYSk TMxuMWH4Q16ll3P7EWPfVS AuKTT3zKZ4mT1ygKgjfcpv bGVmdDsgdmVydGljYWwtYW rgU968RWXc xYbiQLStnK4rOMOlfLJrdP zrID8cYSKwutnkIiKYT6QJ QywgSkVOTklGRVIgTDwvdG Q+PHRkIHN0 sVluDVnmSJVraV5gMDCjC8 g2DgGlBxH8KNciG4YyXAGe iqzqYj68aS9nPlVwHeY5NC cqL9UvphF0 SKMfyVHfMYltIOZ6C84ke9 P1PBXbSZYxCQI7jSW0kU5t bGlnbjogbGVmdDsgdmVydG ljYWwtYWxp K201ZTEhbAytDwB3BzQnXz C7PMr3T8EyGfl2IIEijNge VH2qdZJeEAleEi0qvMuttE qrYO6zXGBw iwaxSBPaiC1pQHFizBDaqS zoYR9jXLStznqyr415YnYl APT5VEExyBNkD0TksE8mVq AjMDAwMDAw R2YqgEEeKHfcH385HNtpYr U8ZURtrcPcO0UjGCHysSex OgV2l9F8Qh1dBKXYTTMnxo wvdGQ+PHRk BBL8yIwoCBolEYIbzM9cAE KsS3a1MtWiCmA5EBcoR4Fr NKAqvzezOz99nV5tHmQlBd W9YPvuS4Ov dmW6DESldTHaWXtaXSG4J8 6yn8C2FIAhDFJzVTJ2lFX2 yV3eyEbponedtBAkhNecag VydGljYWwt PNfoH844PKZvuAwtOsTjnU FsZTwvdGQ+SYPhNRA8pRdp EEoyJUCgeS3bPMKmN4e5Qe PuMhQ9BTgz B0ZnRAIocphrNz62bH7uPi LeDfE9JCkjX5HtldJ3FNQg oCUqYZspDUI8D40rc3P0NA MwMDAwMDA7 hCB3uN5upPqjyzojnTTuhB lcxfUqqAuqSEuyTSjyW340 HHZqzEclIoKlZQVnUN6duL wvdGQ+PC90 pu64B3IaZeadRdm9AUDiHW P6lAN0uP4wXWJvVQkyn8J0 wMA4T7OzefSabj4dm4ztCF TcXHhhF82v oZKvh1W7YZWycPO0MAHlrD eoRcVwwE90Tvp+PGNvbGdy g0RqCmnzp0gbs0nqnZt6Ph MwJSIgdmFs wUitCED2m2XsFn69T53vKL dpZHRoPSIzMCUiIHZhbGln bg8fkK5sYs5+WMOkfUU3lU F3nW5wOdZz ElR3HUgpM316IeIbrDSwMg ulz3lsn8ublCy9JjMrAJNs wxIhcLdzJPM1p2UsXb33A0 OjbIhmv4Mn Bre1vi15lANpt0D0lPE2M6 PiDWWqdtoyyBCuxBfjCP8y QLUaykezZXIzaO3aHYYnQ9 b4MlHbFbY4 THtiL2XkrrB7UMYlwRCpXG WriINWzX3oyochi8rpdzzd EcUoUVQiYKq3JQt7WEXsqV duOiBsZWZ0 ZtK9SRZ6uGRrzN5omSkmns zjjG5oMsp+TNd5z3tboFIq LK5pvAH9XC03WR63aFUao4 S9wSK5Y1Xo ZYVneggxoxcylGJ5GIPaDQ MsmY42Ra9qlBblZt6dCCXr RPK9BHHufPSwQ0ApxB4mDg AjMDAwMDAw G1AdwJHpXKyoY993NQmrNq W1RGNsopFlZ5WqUPGhpPtg SaP2g1E9Ln9ANR39AQ39BA 78hPMbj0S4 yXE7Z0IeQNIptjxgjmfjzG F7BOVnEVBajY82Pi5htXsa Jg8jNXKzVNO5GIJspFGaD2 UmaO3lOeDt PBWoJZOaJ5IahMRvDTowH2 48CQoqMzQ0OSEqsqQvO0Vm GFAmoBkzSyQ8o2H6Fq8AZn 11JZ80QV38 bPYgz5M9pCB4T3CfXVYsap aiffnpbUJ2IZQiVNRnaI04 Jt2mjHrzCg3tJSTpVHU8JM KlfHDyZ8Vj uQ5aGvMfVHCkZEApK1WloY NmEGpsU438HRgxEpR2IXVg czYsW9IpWABsnKibChY2k4 F1Cp4BGNup adp1U6RaFvwybZK+PC90YW OlII14iWRdgMLyr5foxYw4 GrAzHNJrSSW7qAiwNNzdv6 SsHMPzW68w bGFw (more content not included)... Normal [facility] ED Note-Physicianon 02-28-20 ED Note-Physician Basic Information Time Seen: Saima Moffett M.D. 02/26/2022 00:09 Chief Complaint complains of right ear pain today. denies recent cough or runny nose. History of Present Illness The patient is 36-year-old female who presented to the emergency room with headache. The patient states the headache started yesterday morning. The headache was gradual onset. She describes the headache as throbbing. She states the headache is behind the right eye goes to the right denominational and underneath the right ear. The patient denies any fever, denies any chills. She states she is seeing a lot of spots. She states the light and the noise bother her. The patient states the headache is severe. She states she has had previous headaches like this in the same distribution but not this severe. The patient denies any sore throat, denies any body aches. The patient denies any family history of brain aneurysm. She denies any other associated symptoms. Review of Systems Additional ROS info: Except as noted in the above Review of Systems and in the History of Present Illness all other systems have been reviewed and are negative or noncontributory. Physical Exam Vitals & Measurements T: 37.7 ?C(Tympanic) HR: 82(Peripheral) RR: 16 BP: 138/88 SpO2: 98% HT: 172 cm WT: 106.2 kg BMI: 35.9 General: alert, mild distress Skin: warm, dry Head: no trauma, normocephalic, there is no swelling over the right temporal region mild tenderness with palpation. Neck: Trachea midline, no tenderness, supple, no meningeal signs Eye: normal conjunctiva, sclera clear, PERRL, EOMI, vision unchanged ENMT: TM's clear, oral mucosa moist, no pharyngeal erythema or exudate, there is no swelling no tenderness over the mastoid process on the right. Cardiovascular: regular rate and rhythm Respiratory: Lungs CTA, respirations non labored, breath sounds equal Gastrointestinal: soft, non distended, no tenderness, no guarding Extremities: no deformity, no trauma Neurological: Alert and oriented, CN II-XII intact, motor strength equal & normal bilaterally, sensation equal & normal bilaterally, speech normal, no focal neuro deficits, normal coordination Psychiatric: cooperative, affect appropriate for age, Medical Decision Making Patient presented with a headache and right ear pain. There is no signs of infection. She has mild tenderness over the temporal region. Sed rate is normal. Patient has no meningeal signs. She does not appear to be toxic. The patient was given IV fluid and medications for migraine headaches. Her headache almost completely resolved. The patient feels comfortable. She wants to go home. Less likely meningitis. Less likely subarachnoid bleed. The patient is instructed to return to the emergency room if her headache gets worse or any new symptoms. Assessment/Plan 1. Headache (R51.9: Headache, unspecified) Orders: diphenhydrAMINE, 50 mg = 1 mL, Injection, IV Push, Once, Stop date 02/26/22 0:32:00 EST, STAT, Start date 02/26/22 0:32:00 EST, 02/26/22 0:32:00 EST ketorolac, 30 mg = 1 mL, Injection, IV Push, Once, Stop date 02/26/22 0:32:00 EST, STAT, Start date 02/26/22 0:32:00 EST, 02/26/22 0:32:00 EST metoclopramide, 10 mg = 2 mL, Injection, IV Push, Once, Stop date 02/26/22 0:32:00 EST, STAT, Start date 02/26/22 0:32:00 EST, 02/26/22 0:32:00 EST Sodium Chloride 0.9% intravenous solution, 500 mL, Soln-IV, IV, Once, Stop date 02/26/22 0:32:00 EST, STAT, Start date 02/26/22 0:32:00 EST, 500 mL/hr, Infuse over 1, hour(s) Sedimentation Rate Automated Medications Administered Given diphenhydrAMINE 50 mg/mL Inj, 50 mg, IV Push ketorolac 30 mg/mL Inj 1 mL, 30 mg, IV Push metoclopramide 5 mg/mL Inj, 10 mg, IV Push Sodium Chloride 0.9% IV Lindy 500 mL [F], 500 mL, IV Disposition Plan Patient Discharge Condition Stable, improved Discharge Disposition Discharged home Discharge Prescription List Prescriptions No active prescription medications Follow-up With When Contact Information DOMO ELIUD In 3 days 03/01/2022 EST [address], [facility] [address] [place] [address] [facility] (1) Additional Instructions: Return to the emergency room if your headache recurs or any new symptoms Patient Education General Headache Without Cause Problem List/Past Medical History Ongoing Bilateral kidney stones BMI 30.0-30.9,adult Chronic cystitis History of kidney disease History of ureteral obstruction Hydronephrosis Kidney stone Nocturia Personal history of urethral stricture Renal mass Smoker.. Stress incontinence Ureteral stricture Historical Kidney stones UTI (lower urinary tract infection) Procedure/Surgical History Nephrostomy tube (05/11/2015), Cystoscopy (04/14/2015), Cystoscopy (03/08/2015), cystoscopy, urethral dilatation, right retrograde pyelogram, right double J ureteral stent placement under fluoroscopic guidance (10/26/2014), section (09/05/2014), Exploratory laparotomy. Medication (more content not included)... Normal [facility] Comment on above: Result Comment: Elec tronically Signed By: Saima Moffett M.D.\Date and Time Signed: 02/27/22 01:16 EST Consent for Treatmenton 02-16 Consent for Treatment [id number] 0CD:127 Normal [facility] Discharge Instructionson Discharge Instructions [id number]:[id number] Normal [facility] ED Clinical Summaryon 2021 ED Clinical Summary [place] [id number] ED Clinical Summary Person Information Name: FLORES BORGES Rafaela/[facility] Age: 36 Years : 1985 Sex: Female Language: Greek PCP: DOMO KLINE DO Marital Status: Single Phone: [phone] Visit Id: Visit Reason: Ear pain; HEADACHE, EAR PAIN, DIZZINESS Speciality: Acuity: 4 Enc Type: Emergency Med Service: Emergency Arrival: 02/25/2022 23:47:02 Discharge: 02/26/2022 03:24:28 LOS: 000 03:37 Checkin: 02/25/2022 23:47:02 Checkout: 02/26/2022 03:24:28 Dispo Type: Home (Routine DC) EVENTS: Event Name Event Status Request Date/Time Start Date/Time Complete Date/Time Arrive Complete 02/25/2022 23:47:02 02/25/2022 23:47:02 02/25/2022 23:47:02 Document Home Meds Request 02/25/2022 23:47:02 Triage Complete 02/25/2022 23:47:02 02/26/2022 00:02:46 02/26/2022 00:02:46 Bed Assign Complete 02/26/2022 00:00:50 02/26/2022 00:00:50 02/26/2022 00:00:50 Dr Exam Complete 02/26/2022 00:00:50 02/26/2022 00:09:42 02/26/2022 00:09:42 RN Exam Complete 02/26/2022 00:00:50 02/26/2022 00:05:17 02/26/2022 00:05:17 Registration Complete 02/26/2022 00:09:42 02/26/2022 00:31:13 02/26/2022 00:31:13 Reg Complete Request 02/26/2022 00:31:13 Reg Bed Request Complete 02/26/2022 00:31:13 02/26/2022 00:31:13 02/26/2022 00:31:13 Meds Admin Complete 02/26/2022 00:32:40 02/26/2022 01:01:09 Pending Labs Complete 02/26/2022 00:32:40 02/26/2022 02:04:58 Discharge Complete 02/26/2022 03:02:06 02/26/2022 03:24:35 02/26/2022 03:24:35 Transfer Complete 02/26/2022 03:24:35 02/26/2022 03:24:35 02/26/2022 03:24:35 ADDRESS: [address] [id number] [facility] DOC NOTES: MEDICAL INFORMATION: Prescriptions Given: Medications to Continue with No Changes Other Medications phentermine (Adipex-P) 37.5 Milligram By Mouth every day. PATIENT EDUCATION INFORMATION: Instructions: General Headache Without Cause Follow up: With: Address: When: DOMO JASSOGLES [address] [place] [id number] Business (1) In 3 days 03/01/2022 Comments: Return to the emergency room if your headache recurs or any new symptoms DIAGNOSIS: 1:Headache Normal [facility] ED Patient Education Noteon 02-26-2022 ED Patient Education Note Neurology General Headache Without Cause A headache is pain or discomfort felt around the head or neck area. The specific cause of a headache may not be found. There are many causes and types of headaches. A few common ones are: ? Tension headaches. ? Migraine headaches. ? Cluster headaches. ? Chronic daily headaches. Follow these instructions at home: Watch your condition for any changes. Let your health care provider know about them. Take these steps to help with your condition: Managing pain ? Take ctxx-bur-uaaikch and prescription medicines only as told by your health care provider. ? Lie down in a dark, quiet room when you have a headache. ? If directed, put ice on your head and neck area: ? Put ice in a plastic bag. ? Place a towel between your skin and the bag. ? Leave the ice on for 20 minutes, 2?3 times per day. ? If directed, apply heat to the affected area. Use the heat source that your health care provider recommends, such as a moist heat pack or a heating pad. ? Place a towel between your skin and the heat source. ? Leave the heat on for 20?30 minutes. ? Remove the heat if your skin turns bright red. This is especially important if you are unable to feel pain, heat, or cold. You may have a greater risk of getting burned. ? Keep lights dim if bright lights bother you or make your headaches worse. Eating and drinking ? Eat meals on a regular schedule. ? If you drink alcohol: ? Limit how much you use to: ? 0?1 drink a day for women. ? 0?2 drinks a day for men. ? Be aware of how much alcohol is in your drink. In the [place] one drink equals one 12 oz bottle of beer (355 mL), one 5 oz glass of wine (148 mL), or one 1? oz glass of hard liquor (44 mL). ? Stop drinking caffeine, or decrease the amount of caffeine you drink. General instructions ? Keep a headache journal to help find out what may trigger your headaches. For example, write down: ? What you eat and drink. ? How much sleep you get. ? Any change to your diet or medicines. ? Try massage or other relaxation techniques. ? Limit stress. ? Sit up straight, and do not tense your muscles. ? Do not use any products that contain nicotine or tobacco, such as cigarettes, e-cigarettes, and chewing tobacco. If you need help quitting, ask your health care provider. ? Exercise regularly as told by your health care provider. ? Sleep on a regular schedule. Get 7?9 hours of sleep each night, or the amount recommended by your health care provider. ? Keep all follow-up visits as told by your health care provider. This is important. Contact a health care provider if: ? Your symptoms are not helped by medicine. ? You have a headache that is different from the usual headache. ? You have nausea or you vomit. ? You have a fever. Get help right away if: ? Your headache becomes severe quickly. ? Your headache gets worse after moderate to intense physical activity. ? You have repeated vomiting. ? You have a stiff neck. ? You have a loss of vision. ? You have problems with speech. ? You have pain in the eye or ear. ? You have muscular weakness or loss of muscle control. ? You lose your balance or have trouble walking. ? You feel faint or pass out. ? You have confusion. ? You have a seizure. Summary ? A headache is pain or discomfort felt around the head or neck area. ? There are many causes and types of headaches. In some cases, the cause may not be found. ? Keep a headache journal to help find out what may trigger your headaches. Watch your condition for any changes. Let your health care provider know about them. ? Contact a health care provider if you have a headache that is different from the usual headache, or if your symptoms are not helped by medicine. ? Get help right away if your headache becomes severe, you vomit, you have a loss of vision, you lose your balance, or you have a seizure. This information is not intended to replace advice given to you by your health care provider. Make sure you discuss any questions you have with your health care provider. Document Released: 03/05/2006 Document Revised: 09/23/2018 Document Reviewed: 09/23/2018 Elsevier Patient Education ? 2020 [employer] Normal [facility] ED Patient Summaryon 022 ED Patient Summary [place] [id number] Patient Discharge Instructions Person Information Name: FLORES BORGES Age: 36 Years Arrival Date: 02/25/2022 23:47:02 Discharge Diagnosis: 1:Headache Primary Care Physician: DOMO KLINE DO Provider Information Primary Provider: Saima Moffett M.D. Advanced Sales Promotion Coordinator:None The exam and treatment you received in the Emergency Department were for an urgent problem and are not intended as complete care. It is important that you follow up with a doctor, nurse practitioner, or physician?s lead dental assistant for ongoing care. If your symptoms become worse or you do not improve as expected and you are unable to reach your usual health care provider, you should return to the Emergency Department. We are available 24 hours a day. FLORES BORGES has been given the following list of patient education materials, prescriptions and follow-up instructions: Follow-up Instructions: With: Address: When: DOMO KLINE [address] [place] [address] [address] [employer] (1) In 3 days 03/01/2022 Comments: Return to the emergency room if your headache recurs or any new symptoms In the event that this physician does not participate in your insurance network, please consult with your insurance company to find a nearby participating provider. Patient Education Materials: General Headache Without Cause A MESSAGE TO ALL PATIENTS REGARDING OPIOIDS PRESCRIPTION OPIOIDS: WHAT YOU NEED TO KNOW Prescription opioids can be used to help relieve wugyyass-bx-akxaag pain and are often prescribed following a surgery or injury, or for certain health conditions. These medications can be an important part of the treatment but also come with serious risks. It is important to work with your healthcare provider to make sure you are getting the safest, most effective care. WHAT ARE THE RISKS AND SIDE EFFECTS OF OPIOID USE? Prescription opioids carry serious risks of addiction and overdose, especially with prolonged use. An opioid overdose, often marked by slowed breathing, can cause sudden . The use of prescription opioids can have a number of side effects as well, even when taken as directed: ? Tolerance?meaning you might need to take more of the medication for the same pain relief ? Physical dependence?meaning you have symptoms of withdrawal when a medication is stopped ? Increased sensitivity to pain ? Constipation ? Nausea, vomiting, and dry mouth ? Sleepiness and dizziness ? Confusion ? Depression ? Low levels of testosterone that can result in lower sex drive, energy, and strength ? Itching and sweating RISKS ARE GREATER WITH: ? History of drug misuse, substance use disorder, or overdose ? Mental health conditions (such as depression or anxiety) ? Sleep apnea ? Older age (65 years and older) ? Avoid alcohol while taking prescription opioids. Also, unless specifically advised by your health care provider, medications to avoid include: ? Benzodiazepines (such as Xanax or Valium) ? Muscle relaxants (such as Soma or Flexeril) ? Hypnotics (such as Ambien or Lunesta) ? Other prescription opioids KNOW YOUR OPTIONS Talk to your health care provider about ways to manage your pain that don?t involve prescription opioids. Some of these options may actually work better and have fewer risks and side effects. Options may include: ? Pain relievers such as acetaminophen, ibuprofen, and naproxen ? Some medication that are also used for depression or seizures ? Physical therapy and exercise ? Cognitive behavioral therapy, a psychological, goal-directed approach, in which patients learn how to modify physical, behavioral, and emotional triggers of pain and stress. IF YOU ARE PRESCRIBED OPIOIDS FOR PAIN: ? Never take opioids in greater amounts or more often than prescribed. ? Follow up with your primary health care provider. o Work together to create a plan on how to manage your pain. o Talk about ways to help manage your pain that don?t involve prescription opioids. o Talk about any and all concerns and side effects. ? Help prevent misuse and abuse o Never sell or share prescription opioids. o Never use another person?s prescription opioids. ? Store prescription opioids in a secure place and out of reach of others (this may include visitors, children, friends, and family). ? Safely dispose of unused prescription opioids: Find your community drug take-back program or your pharmacy mail-back program, or flush them down the toilet, following guidance from the Food and Drug Administration (www.fda.gov/Drugs/Res ourcesForYou). ? Visit www.cdc.gov/drugoverdo se to learn about the risks of opioids abuse and overdose. ? If you believe you may be struggling with addiction, tell your health child care cook and ask for sarah (more content not included)... Normal [facility] HEMATOLOGYOrdered By: Alliso n Robby on 02-26-2022 Sed Rate Automated 15 mm/h Normal 0 - 34 mm/hr [facility] HemeAutoSS Sed Rate Automatedon 022 Sed Rate Automated 15 mm/hr Normal 0-34 [facility] Comment on above: Performed By: #### 1 [id number] ####[facility] [address] [place] [address] SEROLOGYOrdered By: Tracey Saldana on 02-11-2022 HCG.beta subunit (U) [Moles/Vol] Negative Normal [facility] URINALYSISOrdered By: Ernie Saldana on 02-11-2022 Bilirubin Ql (U) Negative (02/11/22 12:08 PM) Normal Negative [facility] UA Auto SS Clarity (U) Clear (02/11/22 12:08 PM) Normal Clear [facility] UA Auto SS Color (U) Yellow (02/11/22 12:08 PM) Normal Yellow [facility] UA Auto SS Epithelial cells.squamous LM.HPF (Urine sed) [#/Area] 0-2 /HPF Normal 0-2/HPF [facility] UA Aut o SS Glucose Test strip (U) [Mass/Vol] Negative (02/11/22 12:08 PM) Normal Negative [facility] UA Auto SS Hemoglobin Ql (U) Negative (02/11/22 12:08 PM) Normal Negative [facility] UA Auto SS Ketones (U) [Mass/Vol] Negative (02/11/22 12:08 PM) Normal Negative [facility] UA Auto SS [place].plasma/Lithiu m.RBC (Bld) [Mass ratio] 0-3 /HPF Normal 0-3/HPF [facility] UA Auto SS Nitrite Ql (U) Negative (02/11/22 12:08 PM) Normal Negative [facility] UA Auto SS pH (U) 7.0 *NA* (02/11/22 12:08 PM) Invalid Interpretation Code 5.0 - 9.0 [facility] UA Auto SS Protein (U) [Mass/Vol] Negative (02/11/22 12:08 PM) Normal Negative [facility] UA Auto SS Specific gravity (U) [Rel density] 1.020 *NA* (02/11/22 12:08 PM) Invalid Interpretation Code 1.005 - 1.030 [facility] UA Auto SS UA Spec Desc Clean Catch (02/11/22 12:08 PM) Normal [facility] UA Auto SS Urobilinogen Qn (U) 0.0914102 {Yarely'U}/dL Normal 0.0 - 1.0 EU/dL [facility] UA Auto SS WBC Auto Ql (U) Negative (02/11/22 12:08 PM) Normal Negative [facility] UA Auto SS WBC LM.HPF (Urine sed) [#/Area] 0-5 /HPF Normal 0-5/HPF [facility] UA Auto SS CITRATE URINE 24HRon 022 Citric Acid, U, 24hr 318 mg/24 hr Critically low 320-1240 [facility] Comment on above: Result Comment: This test was developed and its performance characteristics determined by [facility]. It has not been cleared or approved by the Food and Drug Administration. Performed By: #### M AG24 #### [facility] [address] [place] [address] [address] Anthony Oneill Citric Acid, Urine 796 mg/L Normal Undefined [facility] Comment on above: Performed By: #### M AG24 #### [facility] [address] [place] [address] [address] Anthony Oneill OXALATE 24HR URINEon 022 Oxalates, Urine 29 mg/L Normal Undefined [facility] Comment on above: Performed By: #### M AG24 #### [facility] [address] [place] [address] [address] Anthony Oneill Oxalates, Urine 24hr 12 mg/24 hr Normal 4-31 [facility] Comment on above: Performed By: #### M AG24 #### [facility] [address] [place] [address] [address] Anthony Oneill MAGNESIUM 24HR URINEon 01-28 Magnesium 24hr Urine 34.4 mg/24 hr Normal 12.0-293.0 [facility] Comment on above: Performed By: #### M AG24 #### [facility] [address] [place] [address] [address] Anthony Oneill Magnesium UR 8.6 mg/dL Normal Not Estab. [facility] Comment on above: Performed By: #### M AG24 #### [facility] [address] [place] [address] [address] Anthony Oneill PHOSPHORUS 24HR URINEon 01-17 Phosphorus, Urine 123.6 mg/dL Normal Not Estab. [facility] Comment on above: Performed By: #### P HOS 24 #### [facility] [address] [place] [address] [address] Anthony Oneill Phosphorus, Urine 24hr 494 mg/24 hr Normal 261-1078 [facility] Comment on above: Performed By: #### P HOS 24 #### [facility] [address] [place] [address] Dr. Anthony Oneill PTH INTACTon 01-28-2022 PTH, Intact 17 pg/mL Normal 15-65 [facility] Comment on above: Performed By: #### P THINT #### [facility] [address] [place] [address] Dr. Anthony Oneill URIC ACID 24 HR URINEon 01-17 Uric Acid, Urine 71.0 mg/dL Normal Not Estab. [facility] Comment on above: Performed By: #### U EVONNE 24 #### [facility] [address] [place] [address] Dr. Anthony Oneill Uric Acid, Urine 24hr 284.0 mg/24 hr Normal 173.7-902. 1 [facility] Comment on above: Performed By: #### U EVONNE 24 #### [facility] [address] [place] [address] Dr. Anthony Oneill XR KUB 1 VIEWon 01-28-2022 XR KUB 1 VIEW EXAMINATION: XR KUB 1 VIEW HISTORY: Kidney stone COMPARISON: XR KUB 12/12/2021 FINDINGS: KIDNEY/URETER - RIGHT: No visible renal or ureteral calcifications. KIDNEY/URETER - LEFT: Persistent 7 x 5 mm density projecting over inferior pole of kidney favoring a stone. PELVIS: No visible ureteral stones. BOWEL: No abnormal dilation or deviation. BONES: No acute abnormality. OTHER: Negative. No abnormal gaseous collections. IMPRESSION: 1. Grossly stable left nephrolithiasis. Electronically authenticated by: PHILLIP HOLLAND Date: 2022-01-28 06:[address] [facility] BUNon 01-27-2022 Urea nitrogen [Mass/Vol] 12.0 mg/dL Normal 7.0-18.0 [facility] Comment on above: Performed By: #### R PRQ #### [facility] [address] [place] [address] Dr. Anthony Oneill CALCIUMon 01-27-2022 Calcium [Mass/Vol] 8.8 mg/dL Normal 8.5-10.1 [facility] Comment on above: Performed By: #### R PRQ #### [facility] [address] [place] [address] Dr. Anthony Oneill CALCIUM 24 HR URINEon 2021 CALC, 24 HR UR 84.0 mg/24 hr Critically low 100.0-300.0 [facility] Comment on above: Performed By: #### M AG24 #### [facility] [address] [place] [address] Dr. Anthony Oneill UR CALCIUM 21.0 mg/dL Normal 5.1-21.0 [facility] Comment on above: Performed By: #### M AG24 #### [facility] [address] [place] [address] Dr. Anthony Oneill CHLORIDEon 01-27-2022 Chloride [Moles/Vol] 104 mmol/L Normal 98-107 [facility] Comment on above: Performed By: #### R PRQ #### [facility] [address] [place] [address] Dr. Anthony Oneill CO2on 01-27-2022 CO2 [Moles/Vol] 25.8 mmol/L Normal 21.0-32.0 [facility] Comment on above: Performed By: #### R PRQ #### [facility] [address] [place] [address] Dr. Anthony Oneill CREA 24 HR URINEon 2 CREA, 24 HR UR 1005.08 mg/24 hr Normal 800.00-1, 800 .00 [facility] Comment on above: Performed By: #### C REA24U, NA24U #### [facility] [address] [place] [address] Dr. Anthony Oneill UR TOT VOL 400 ml/24 HR Normal [facility] Comment on above: Performed By: #### C REA24U, NA24U #### [facility] [address] [place] [address] Dr. Anthony Oneill Performed By: #### M AG24 #### [facility] [address] [place] [address] Dr. Anthony Oneill URINE CREAT 251.27 mg/dL Normal 20.00-300.00 [facility] Comment on above: Performed By: #### C REA24U, NA24U #### [facility] [address] [place] [address] Dr. Anthony Oneill CREATININEon 01-27-2022 Creatinine [Mass/Vol] 0.81 mg/dL Normal 0.55-1.02 [facility] Comment on above: Performed By: #### R PRQ #### [facility] [address] [place] [address] Dr. Anthony Oneill EGFR-AF MICRONESIAN >60 Normal >=60 [facility] Comment on above: Performed By: #### R PRQ #### [facility] [address] [place] [address] Dr. Anthony Oneill EGFR-NON AF MICRONESIAN >60 Normal >=60 [facility] Comment on above: Performed By: #### R PRQ #### [facility] [address] [place] [address] Dr. Anthony Oneill NAon 01-27-2022 Sodium [Moles/Vol] 135 mmol/L Critically low 136-145 [facility] Comment on above: Performed By: #### R PRQ #### [facility] [address] [place] [address] Dr. Anthony Oneill POTASSIUMon 01-27-2022 Potassium [Moles/Vol] 3.6 mmol/L Normal 3.5-5.1 [facility] Comment on above: Performed By: #### R PRQ #### [facility] [address] [place] [address] Dr. Anthony Oneill SODIUM 24 HR URINEon 022 NA, 24 HR UR 47 mmol/24 hr Normal 40-220 [facility] Comment on above: Performed By: #### C REA24U, NA24U #### [facility] [address] [place] [address] Dr. Anthony Oneill Sodium (U) [Moles/Vol] 118 mmol/L Critically high 30-90 [facility] Comment on above: Performed By: #### C REA24U, NA24U #### [facility] [address] [place], [place] [address] Dr. Anthony Oneill URIC ACID SERUMon 01-27-2022 Urate [Mass/Vol] 5.2 mg/dL Normal 2.6-6.0 [facility] Comment on above: Performed By: #### R PRQ #### [facility] [address] [place], [place] [address] Dr. Anthony Oneill MICRO OTHER TESTSOrdered By: Juan Soria on 01-20-2022 Influenzae A Ag Negative (01/20/22 10:14 AM) Normal Negative [facility] Sero Influenzae B Ag Negative (01/20/22 10:14 AM) Normal Negative [facility] Rapid COV Int NEG Ctl Pass (01/20/22 10:14 AM) Normal [facility] Rapid COV Int POS Ctl Pass (01/20/22 10:14 AM) Normal [facility] Man Sero SARS-CoV+SARS-CoV-2 (COVID-19) Ag IA.rapid Ql (Resp) Not Detected (01/20/22 10:14 AM) Normal Not Detected [facility] XR KUB 1 VIEWon 12-12-2021 XR KUB 1 VIEW EXAMINATION: XR KUB 1 VIEW HISTORY: Kidney stone COMPARISON: 11/15/2020 FINDINGS: KIDNEY/URETER - RIGHT: No visible renal or ureteral calcifications. KIDNEY/URETER - LEFT: No visible renal or ureteral calcifications. PELVIS: No visible ureteral calcifications. Any visible calcifications favor phleboliths. BOWEL: No abnormal dilation or deviation. BONES: No acute abnormality. OTHER: Negative. No abnormal gaseous collections. IMPRESSION: No definite urinary tract calculi Electronically authenticated by: LEIGH FLEMING Date: 2021-12-12 19:[address] [facility] SEROLOGYOrdered By: Agustín chavez on 09-17-2021 HCG.beta subunit (U) [Moles/Vol] Negative Normal [facility]ero URINALYSISOrdered By: Agustín Noble on 09-17-2021 Bilirubin Ql (U) Negative (09/17/21 12:19 AM) Normal Negative [facility] UA Auto SS Clarity (U) Clear (09/17/21 12:19 AM) Normal Clear [facility] UA Auto SS Color (U) Yellow (09/17/21 12:19 AM) Normal Yellow [facility] UA Auto SS Epithelial cells.squamous LM.HPF (Urine sed) [#/Area] 0-2 /HPF Normal 0-2/HPF [facility] UA Aut o SS Glucose Test strip (U) [Mass/Vol] Negative (09/17/21 12:19 AM) Normal Negative [facility] UA Auto SS Hemoglobin Ql (U) Trace *ABN* (09/17/21 12:19 AM) Invalid Interpretation Code Negative [facility] UA Auto SS Ketones (U) [Mass/Vol] Negative (09/17/21 12:19 AM) Normal Negative [facility] UA Auto SS [place].plasma/Lithiu m.RBC (Bld) [Mass ratio] 0-3 /HPF Normal 0-3/HPF [facility] UA Auto SS Nitrite Ql (U) Negative (09/17/21 12:19 AM) Normal Negative [facility] UA Auto SS pH (U) 6.0 *NA* (09/17/21 12:19 AM) Invalid Interpretation Code 5.0 - 9.0 [facility] UA Auto SS Protein (U) [Mass/Vol] Negative (09/17/21 12:19 AM) Normal Negative [facility] UA Auto SS Specific gravity (U) [Rel density] >=1.030 *NA* (09/17/21 12:19 AM) Invalid Interpretation Code 1.005 - 1.030 [facility] UA Auto SS UA Spec Desc Clean Catch (09/17/21 12:19 AM) Normal [facility] UA Auto SS Urobilinogen Qn (U) 0.4254663 {Yarely'U}/dL Normal 0.0 - 1.0 EU/dL [facility] UA Auto SS WBC Auto Ql (U) Negative (09/17/21 12:19 AM) Normal Negative [facility] UA Auto SS WBC LM.HPF (Urine sed) [#/Area] 0-5 /HPF Normal 0-5/HPF [facility] UA Auto SS CHEMISTRYOrdered By: SYSTEM SYSTEM on 09-16-2021 Albumin [Mass/Vol] 4.1 g/dL Normal 3.3 - 5.0 gm/dL [facility] Rem[facility] Albumin/Globulin [Mass ratio] 1.1 {ratio} Normal 1.1 - 2.2 [facility] ALP [Catalytic activity/Vol] 85 [iU]/d Normal 21 - 98 Int._Unit/L [facility] ALT No additional P-5'-P [Catalytic activity/Vol] 17 [iU]/d Normal 6 - 46 Int._Unit/L [facility] Anion gap [Moles/Vol] 12 mmol/L Normal 6 - 16 mEq/L [facility] AST [Catalytic activity/Vol] 19 [iU]/d Normal 5 - 43 Int._Unit/L [facility] Bilirubin [Mass/Vol] 0.4 mg/dL Normal 0.0 - 1 .1 mg/dL [facility] Bilirubin.direct [Mass/Vol] mg/dL Normal 0.1 - 0.4 mg/dL [facility] Bilirubin.indirect [Mass or moles/Vol] Unable to Calculate mg/dL Invalid Interpretation Code 0.1 - 0.9 mg/dL [facility] Calcium [Mass/Vol] 9.5 mg/dL Normal 8.9 - 11. 1 mg/dL [facility] Chloride [Moles/Vol] 107 mmol/L Normal 101 - 1 11 mmol/L [facility] CO2 [Moles/Vol] 22 mmol/L Normal 21 - 31 mmol/L [facility] Creatinine [Mass/Vol] 0.7 mg/dL Normal 0.5 - 1.3 mg/dL [facility] GFR/1.73 sq M.predicted among blacks MDRD (S/P/Bld) [Vol rate/Area] mL/min/1.73 m2 Normal >=59mL/min/1 .73 m2 [facility] [place] S GFR/1.73 sq M.predicted among non-blacks MDRD (S/P/Bld) [Vol rate/Area] mL/min/1.73 m2 Normal >=59mL/min/1 .73 m2 [facility] Globulin (S) [Mass/Vol] 3.8 g/dL Normal 1.4 - 4.0 gm/dL [facility] Glucose [Mass/Vol] 83 mg/dL Normal 55 - 199 mg/dL [facility] Lipase [Catalytic activity/Vol] 27 U/L Normal 13 - 58 unit/L [facility] Potassium [Moles/Vol] 3.8 mmol/L Normal 3.5 - 5.3 mmol/L [facility] Protein [Mass/Vol] 7.9 g/dL High 6.0 - 7.8 gm/dL [facility] Sodium [Moles/Vol] 137 mmol/L Normal 135 - 145 mmol/L [facility] Urea nitrogen [Mass/Vol] 19 mg/dL Normal 5 - 21 mg/dL [facility] Urea nitrogen/Creatinine [Mass ratio] 27 mg/mg High 10 - 20 [facility] HEMATOLOGYOrdered By: SYSTEM SYSTEM on 09-16-2021 Basophils/100 WBC (Bld) 0.8 % Normal 0.0 - 2.0 % [facility] HemeAutoSS Basophils/Leukocytes Auto (Bld) [Pure # fraction] 0.1 E9/L Normal 0.0 - 0.2 E9/L [facility] Eosinophils/100 WBC (Bld) 1.5 % Normal 0.0 - 8.0 % [facility] Eosinophils/Leukocyte s Auto (Bld) [Pure # fraction] 0.2 E9/L Normal 0.0 - 0.5 E9/L [facility] Lymphocytes/100 WBC (Bld) 34.7 % Normal 14.0 - 50.0 % [facility]SS Lymphocytes/Leukocyte s Auto (Bld) [Pure # fraction] 3.9 E9/L Normal 1.0 - 4.0 E9/L [facility] Monocytes/100 WBC (Bld) 7.2 % Normal 4.0 - 14.0 % [facility]eAutoSS Monocytes/Leukocytes Auto (Bld) [Pure # fraction] 0.8 E9/L Normal 0.2 - 1.0 E9/L [facility] Neutrophils/100 WBC (Bld) 55.8 % Normal 36.0 - 75.0 % [facility] Neutrophils/Leukocyte s Auto (Bld) [Pure # fraction] 6.3 E9/L Normal 2.0 - 7.5 E9/L [facility]eAutoSS HEMATOLOGYOrdered By: Alice rodríguez on 09-16-2021 Erythrocyte distribution width (RBC) [Ratio] 14.8 % High 10.9 - 14.2 % [facility] Hematocrit (Bld) [Volume fraction] 39.8 % Normal 34.0 - 46.0 % [facility] Hemoglobin (Bld) [Mass/Vol] 13.5 g/dL Normal 12.0 - 16.0 gm/dL [facility] MCH (RBC) [Entitic mass] 28.9 pg Normal 27.0 - 34.0 pg [facility] MCHC (RBC) [Mass/Vol] 34.0 g/dL Normal 31.4 - 36.0 gm/dL [facility] MCV (RBC) [Entitic vol] 85.0 fL Normal 80.0 - 100.0 fL [facility] Platelet mean volume (Bld) [Entitic vol] 9.3 fL Normal 6.4 - 10.8 fL [facility] Platelets (Bld) [#/Vol] 305.0 E9/L Normal 150.0 - 500.0 E9/L [facility] RBC (Bld) [#/Vol] 4.7 E12/L Normal 4.3 - 5.9 E12/L [facility] WBC corrected for nucl RBC Auto (Bld) [#/Vol] 11.3 E9/L High 4.0 - 11.0 E9/L [facility] Complete Blood Count Auto Di ffon 04-07-2021 Basophils (Bld) [#/Vol] 0.1 10*3/uL Normal 0.0-0.2 [facility] Comment on above: Result Comment: PERF ORMED BY: [place] [address] PATHOLOGIST DIRECT CARE SPECIALIST MARLEY CALLES M.D. Performed By: #### C BC, CMP #### [facility] [address] [place] [address] #### HBSAB, HCV RIAN, HBCAB, HBSAG, HCV RX PCR #### [facility] , Basophils/100 WBC (Bld) 0.8 % Normal . [facility] Comment on above: Performed By: #### C BC, CMP #### [address] #### HBSAB, HCV RIAN, HBCAB, HBSAG, HCV RX PCR #### [facility] , Eosinophils (Bld) [#/Vol] 0.2 10*3/uL Normal 0.0-0.45 [facility] Comment on above: Performed By: #### C BC, CMP #### [address] #### HBSAB, HCV RIAN, HBCAB, HBSAG, HCV RX PCR #### [facility] , Eosinophils/100 WBC (Bld) 1.9 % Normal . [facility] Comment on above: Performed By: #### C BC, CMP #### [address] #### HBSAB, HCV RIAN, HBCAB, HBSAG, HCV RX PCR #### [facility] , Erythrocyte distribution width (RBC) [Ratio] 14.2 % Normal 11.9-15.3 [facility] Comment on above: Performed By: #### C DANIEL, CMP #### [address] #### HBSAB, HCV RIAN, HBCAB, HBSAG, HCV RX PCR #### [facility] , Hematocrit (Bld) [Volume fraction] 39.4 % Normal 34.0-46.4 [facility] Comment on above: Performed By: #### C BC, CMP #### [place] [address] [place] #### HBSAB, HCV RIAN, HBCAB, HBSAG, HCV RX PCR #### [facility] , Hemoglobin (Bld) [Mass/Vol] 13.2 g/dL Normal 11.8-15.4 [facility] Comment on above: Performed By: #### C BC, CMP #### [place] [address] [place] #### HBSAB, HCV RIAN, HBCAB, HBSAG, HCV RX PCR #### [facility] , Lymphocytes (Bld) [#/Vol] 3.5 10*3/uL Normal 1.00-4.8 [facility] Comment on above: Performed By: #### C BC, CMP #### [address] #### HBSAB, HCV RIAN, HBCAB, HBSAG, HCV RX PCR #### [facility] , Lymphocytes/100 WBC (Bld) 39.1 % Normal . [facility] Comment on above: Performed By: #### C BC, CMP #### [address] #### HBSAB, HCV RIAN, HBCAB, HBSAG, HCV RX PCR #### [facility] , MCH (RBC) [Entitic mass] 29.3 pg Normal 24.7-34.3 [facility] Comment on above: Performed By: #### C BC, CMP #### [address] #### HBSAB, HCV RIAN, HBCAB, HBSAG, HCV RX PCR #### [facility] , MCV (RBC) [Entitic vol] 87.7 fL Normal 80-100 [facility] Comment on above: Performed By: #### C BC, CMP #### [address] #### HBSAB, HCV RIAN, HBCAB, HBSAG, HCV RX PCR #### [facility] , Mean Corpuscular HGB Conc 33.4 g/dL Normal 32.0-35.0 [facility] Comment on above: Performed By: #### C BC, CMP #### [address] #### HBSAB, HCV RIAN, HBCAB, HBSAG, HCV RX PCR #### [facility] , Monocytes (Bld) [#/Vol] 0.7 10*3/uL Normal 0.0-0.8 [facility] Comment on above: Performed By: #### C BC, CMP #### [place] [address] [place] #### HBSAB, HCV RIAN, HBCAB, HBSAG, HCV RX PCR #### [facility] , Monocytes/100 WBC (Bld) 7.4 % Normal . [facility] Comment on above: Performed By: #### C BC, CMP #### [facility] [address] [place] [address] [place] #### HBSAB, HCV RIAN, HBCAB, HBSAG, HCV RX PCR #### [facility] , Neutrophils (Bld) [#/Vol] 4.6 10*3/uL Normal 1.8-7.7 [facility] Comment on above: Performed By: #### C BC, CMP #### [address] #### HBSAB, HCV RIAN, HBCAB, HBSAG, HCV RX PCR #### [facility] , Neutrophils/100 WBC (Bld) 50.8 % Normal . [facility] Comment on above: Performed By: #### C BC, CMP #### [facility] [address] [place] [address] [place] #### HBSAB, HCV RIAN, HBCAB, HBSAG, HCV RX PCR #### [facility] , Nucleated RBC/100 WBC (Bld) [Ratio] 0.2 % Normal 0-0.5 [facility] Comment on above: Performed By: #### C BC, CMP #### [place] [address] [place] #### HBSAB, HCV RIAN, HBCAB, HBSAG, HCV RX PCR #### [facility] , Platelet mean volume (Bld) [Entitic vol] 9.2 fL Normal 6.3-10.7 [facility] Comment on above: Performed By: #### C BC, CMP #### [place] [address] [place] #### HBSAB, HCV RIAN, HBCAB, HBSAG, HCV RX PCR #### [facility] , Platelets (Bld) [#/Vol] 328 10*3/uL Normal 150-450 [facility] Comment on above: Performed By: #### C BC, CMP #### [facility] [address] [place] [address] #### HBSAB, HCV RIAN, HBCAB, HBSAG, HCV RX PCR #### [facility] , RBC (Bld) [#/Vol] 4.50 10*6/uL Normal 3.60-5.00 [facility] Comment on above: Performed By: #### C BC, CMP #### [facility] [address] [place] [address] #### HBSAB, HCV RIAN, HBCAB, HBSAG, HCV RX PCR #### [facility] , WBC (Bld) [#/Vol] 9.0 10*3/uL Normal 4.5-11.0 [facility] Comment on above: Performed By: #### C BC, CMP #### [facility] [address] [place] [address] [place] #### HBSAB, HCV RIAN, HBCAB, HBSAG, HCV RX PCR #### [facility] , Comprehensive Metabolic Pane roxy 04-07-2021 Albumin [Mass/Vol] 3.7 g/dL Normal 3.2-5.5 [facility] Comment on above: Performed By: #### C BC, CMP #### [facility] [address] [place] [address] [place] #### HBSAB, HCV RIAN, HBCAB, HBSAG, HCV RX PCR #### [facility] , Albumin/Globulin [Mass ratio] 1.0 {ratio} Normal [facility] Comment on above: Performed By: #### C BC, CMP #### [facility] [address] [place] [address] [place] #### HBSAB, HCV RIAN, HBCAB, HBSAG, HCV RX PCR #### [facility] , ALP [Catalytic activity/Vol] 90 U/L Normal 32-92 [facility] Comment on above: Result Comment: PERF ORMED BY: [place] [address] PATHOLOGIST DIRECT CARE SPECIALIST MARLEY CALLES M.D. Performed By: #### C BC, CMP #### [place] [address] [place] #### HBSAB, HCV RIAN, HBCAB, HBSAG, HCV RX PCR #### [facility] , ALT [Catalytic activity/Vol] 27 U/L Normal 10-60 [facility] Comment on above: Performed By: #### C BC, CMP #### [address] #### HBSAB, HCV RIAN, HBCAB, HBSAG, HCV RX PCR #### [facility] , AST [Catalytic activity/Vol] 23 U/L Normal 10-42 [facility] Comment on above: Performed By: #### C BC, CMP #### [address] #### HBSAB, HCV RIAN, HBCAB, HBSAG, HCV RX PCR #### [facility] , Bilirubin [Mass/Vol] 0.4 mg/dL Normal 0.3-1.2 [facility] Comment on above: Performed By: #### C BC, CMP #### [facility] [address] [place] [address] [place] #### HBSAB, HCV RIAN, HBCAB, HBSAG, HCV RX PCR #### [facility] , Calcium [Mass/Vol] 9.2 mg/dL Normal 8.2-10.2 [facility] Comment on above: Performed By: #### C BC, CMP #### [place] [address] [place] #### HBSAB, HCV RIAN, HBCAB, HBSAG, HCV RX PCR #### [facility] , Chloride [Moles/Vol] 100 mmol/L Normal 95-114 [facility] Comment on above: Performed By: #### C BC, CMP #### [facility] [address] [place] [address] [place] #### HBSAB, HCV RIAN, HBCAB, HBSAG, HCV RX PCR #### [facility] , CO2 [Moles/Vol] 21.6 mmol/L Low 22.0-30.0 [facility] Comment on above: Performed By: #### C BC, CMP #### [place] [address] [place] #### HBSAB, HCV RIAN, HBCAB, HBSAG, HCV RX PCR #### [facility] , Creatinine [Mass/Vol] 0.50 mg/dL Normal 0.44-1.03 [facility] Comment on above: Performed By: #### C BC, CMP #### [place] [address] [place] #### HBSAB, HCV RIAN, HBCAB, HBSAG, HCV RX PCR #### [facility] , Estimated GFR ( Rafaela > 60 [facility] Comment on above: Result Comment: GFR estimated reference range: According to KDOQI guidelines, <60 ml/min/1.73m2 is sufficient to diagnose a patient with chronic kidney disease. Performed By: #### C BC, CMP #### [facility] [address] [place] [address] [place] #### HBSAB, HCV RIAN, HBCAB, HBSAG, HCV RX PCR #### [facility] , Estimated GFR (Non- Am > 60 [facility] Comment on above: Performed By: #### C BC, CMP #### [facility] [address] [place] [address] [place] #### HBSAB, HCV RIAN, HBCAB, HBSAG, HCV RX PCR #### [facility] , Globulin (S) [Mass/Vol] 3.8 g/dL Normal [facility] Comment on above: Performed By: #### C BC, CMP #### [facility] [address] [place] [address] [place] #### HBSAB, HCV RIAN, HBCAB, HBSAG, HCV RX PCR #### [facility] , Glucose [Mass/Vol] 96 mg/dL Normal 70-100 [facility] Comment on above: Result Comment: [facility] Glucose Reference Range is dependent on time and content of last meal. Glucose of more than 200 mg/dL in a nonstressed, ambulatory subject supports the diagnosis of Diabetes Mellitus. ADA recommended reference range Performed By: #### C BC, CMP #### [place] [address] [place] #### HBSAB, HCV RIAN, HBCAB, HBSAG, HCV RX PCR #### [facility] , Potassium [Moles/Vol] 3.7 mmol/L Normal 3.5-5.1 [facility] Comment on above: Performed By: #### C BC, CMP #### [facility] [address] [place] [address] [place] #### HBSAB, HCV RIAN, HBCAB, HBSAG, HCV RX PCR #### [facility] , Protein [Mass/Vol] 7.5 g/dL Normal 6.1-7.9 [facility] Comment on above: Performed By: #### C BC, CMP #### [facility] [address] [place] [address] [place] #### HBSAB, HCV RIAN, HBCAB, HBSAG, HCV RX PCR #### [facility] , Sodium [Moles/Vol] 132 mmol/L Low 136-146 [facility] Comment on above: Performed By: #### C BC, CMP #### [place] [address] [place] #### HBSAB, HCV RIAN, HBCAB, HBSAG, HCV RX PCR #### [facility] , Urea nitrogen [Mass/Vol] 9 mg/dL Normal 9-23 [facility] Comment on above: Performed By: #### C BC, CMP #### [facility] [address] [place] [address] #### HBSAB, HCV RIAN, HBCAB, HBSAG, HCV RX PCR #### [facility] , HCG,Urineon 04-07-2021 Beta HCG ( test) Ql (U) Negative Normal [facility] Comment on above: Result Comment: PERF ORMED BY: [place] [address] PATHOLOGIST DIRECT CARE SPECIALIST MARLEY CALLES M.D. Performed By: #### U HCG #### [address] Hep C Ab wRfx to Qnt PCRon 0 04-07-2021 HCV Log10 5.889 Normal . [facility] Comment on above: Result Comment: Resu lt Units: log10 IU/mL Performed By: #### C BC, CMP #### [address] #### HBSAB, HCV RIAN, HBCAB, HBSAG, HCV RX PCR #### [facility] , Hepatitis C Quantitation [id number] Normal . [facility] Comment on above: Performed By: #### C BC, CMP #### [facility] [address] [place] [address] #### HBSAB, HCV RIAN, HBCAB, HBSAG, HCV RX PCR #### [facility] , Hepatitis C Virus Antibody >11.0 High 0.0-0.9 [facility] Comment on above: Performed By: #### C BC, CMP #### [address] #### HBSAB, HCV RIAN, HBCAB, HBSAG, HCV RX PCR #### [facility] , Interpretation Normal . [facility] Comment on above: Result Comment: Posi tive HCV antibody screen with the presence of HCV RNA is consistent with active infection. Performed at: [address] [id number] Operating Room Surgical Technician: Jose D Ibanez PhD, Phone: [phone] Performed at: [address] [id number] Operating Room Surgical Technician: Praveen Lopez MD, Phone: [phone] Performed By: #### C BC, CMP #### [place] [address] [place] #### HBSAB, HCV RIAN, HBCAB, HBSAG, HCV RX PCR #### [facility] , Test Information: Normal . [facility] Comment on above: Result Comment: The quantitative range of this assay is 15 IU/mL to 100 million IU/mL. Performed By: #### C BC, CMP #### [address] #### HBSAB, HCV RIAN, HBCAB, HBSAG, HCV RX PCR #### [facility] , Hep C Genotyping Non Reflexo n 04-07-2021 Hepatitis C Genotype 1a Normal . [facility] Comment on above: Performed By: #### C BC, CMP #### [address] #### HBSAB, HCV RIAN, HBCAB, HBSAG, HCV RX PCR #### [facility] , Please Note: Normal . [facility] Comment on above: Result Comment: This test was developed and its performance characteristics determined by [facility]. It has not been cleared or approved by the U.S. Food and Drug Administration. The FDA has determined that such clearance or approval is not necessary. This test is used for clinical purposes. It should not be regarded as investigational or for research. Performed at: [address] [id number] Operating Room Surgical Technician: Praveen Lopez MD, Phone: [phone] PERFORMED BY: [place] [address] PATHOLOGIST DIRECT CARE SPECIALIST MARLEY CALLES M.D. Performed By: #### C BC, CMP #### [facility] [address] [place] [address] #### HBSAB, HCV RIAN, HBCAB, HBSAG, HCV RX PCR #### [facility] , Hepatitis B Core Antibodyon 04-07-2021 Hepatitis B Core Antibody Positive Critically abnormal Negative [facility] Comment on above: Result Comment: Perf ormed at: - [facility] [address] [id number] Operating Room Surgical Technician: Jose D Ibanez PhD, Phone: [phone] Performed By: #### C BC, CMP #### [address] #### HBSAB, HCV RIAN, HBCAB, HBSAG, HCV RX PCR #### [facility] , Hepatitis B Surface Antibody on 04-07-2021 Hepatitis B Surface Antibody Reactive Normal . [facility] Comment on above: Result Comment: Non Reactive: Inconsistent with immunity, less than 10 mIU/mL Reactive: Consistent with immunity, greater than 9.9 mIU/mL Performed By: #### C BC, CMP #### [facility] [address] [place] [address] #### HBSAB, HCV RIAN, HBCAB, HBSAG, HCV RX PCR #### [facility] , Hepatitis B Surface Antigeno n 04-07-2021 HBsAg Screen Negative Normal Negative [facility] Comment on above: Performed By: #### C BC, CMP #### [address] #### HBSAB, HCV RIAN, HBCAB, HBSAG, HCV RX PCR #### [facility] , CBC WITH DIFFERENTIALon 05-2 ABSOLUTE MONO 0.5 10 3/uL Normal 0.2-0.6 [facility] Comment on above: Performed By: #### 4 [id number] ####[facility] [id number] [place], [place] [phone] ABSOLUTE NEUT 5.6 10 3/uL Normal 2.4-6.6 [facility] Comment on above: Performed By: #### 4 [id number] ####[facility] [address] [phone] Basophils Auto #/vol (Bld) 0.0 10 3/uL Normal 0.0-0.1 [facility] Comment on above: Performed By: #### 4 [id number] ####[facility] [address] [phone] Basophils/100 WBC Auto (Bld) 0.4 % Normal [facility] Comment on above: Performed By: #### 4 [id number] ####[facility] [address] [phone] Eosinophils 0.0 10 3/uL Low 0.1-0.3 [facility] Comment on above: Performed By: #### 4 [id number] ####[facility] [address] [phone] Eosinophils/100 leukocytes 0.2 % Normal [facility] Comment on above: Performed By: #### 4 [id number] ####[facility] [address] [phone] Erythrocyte distribution width Auto Ratio (RBC) 13.5 % Normal 11.5-14.5 [facility] [employer] Comment on above: Performed By: #### 4 [id number] ####[facility] [address] [phone] Erythrocytes (RBC) 4.78 x10 6/uL Normal 3.60-5.20 [facility] Comment on above: Performed By: #### 4 [id number] ####[facility] [address] [phone] Hematocrit (HCT) 43.0 % Normal 33.6-46.8 [facility] Comment on above: Performed By: #### 4 [id number] ####[facility] [address] [phone] Hemoglobin mass conc (Bld) 14.7 g/dL Normal 11.7-15.8 [facility] Comment on above: Performed By: #### 4 [id number] ####[address] [phone] Lymphocytes 2.3 10 3/uL Normal 1.2-3.3 [facility] Comment on above: Performed By: #### 4 [id number] ####[address] [phone] Lymphocytes/100 leukocytes 27.3 % Normal [facility] Comment on above: Performed By: #### 4 [id number] ####[address] [phone] MCH 30.8 pg Normal 27.5-32.3 [facility] Comment on above: Performed By: #### 4 [id number] ####[address] [phone] MCHC mass conc (RBC) 34.2 g/dL Normal 30.7-35.5 [facility] Comment on above: Performed By: #### 4 [id number] ####[address] [phone] MCV 90.0 fL Normal 80.2-99.0 [facility] Comment on above: Performed By: #### 4 [id number] ####[address] [phone] Monocytes/100 leukocytes 6.0 % Normal [facility] Comment on above: Performed By: #### 4 [id number] ####[address] [phone] Neutrophils/100 leukocytes 66.1 % Normal [facility] Comment on above: Performed By: #### 4 [id number] ####[address] [phone] Platelets 289.0 x10 3/uL Normal 150.0-400.0 [facility] Comment on above: Performed By: #### 4 [id number] ####[facility] [address] [phone] WBC (Leukocytes) 8.4 x10 3/uL Normal 4.3-10.3 [facility] Comment on above: Performed By: #### 4 [id number] ####[facility] [address] [phone] CHEM 8on 08-10-2017 Calcium 9.7 mg/dL Normal 8.4-10.4 [facility] Comment on above: Performed By: #### 4 [id number] ####[facility] [address] [phone] CO2 27 mmol/L Normal 22-30 [facility] Comment on above: Performed By: #### 4 [id number] ####[facility] [address] [phone] Glucose mass conc 113 mg/dL High 65-100 [facility] Comment on above: Performed By: #### 4 [id number] ####[facility] [address] [phone] Urea nitrogen 13 mg/dL Normal 8-20 [facility] Comment on above: Performed By: #### 4 [id number] ####[address] [phone] Creatinine 0.60 mg/dL Normal 0.52-1.04 [facility] Comment on above: Performed By: #### 4 [id number] ####[facility] [address] [phone] Chloride 104 mmol/L Normal 96-109 [facility] Comment on above: Performed By: #### 4 [id number] ####[facility] [address] [phone] Potassium molar conc 3.9 mmol/L Normal 3.6-5.1 [facility] Comment on above: Performed By: #### 4 [id number] ####[facility] [address] [phone] Sodium 143 mmol/L Normal 135-147 [facility] Comment on above: Performed By: #### 4 [id number] ####[facility] [address] [phone] GFRon 08-10-2017 eGFR (MDRD) mL/min/{1.73_m2} Normal [facility] Comment on above: Result Comment: To e stimate the GFR for Americans, multiply the resultprovided by 1.21.Population mean GFR = 107 ml/min/1.73 sq.m. for ages 30-39 yrsFive stages of CKD and GFR for each stage:Stage 1 GFR >=90Stage 2 GFR 60-89Stage 3 GFR 30-59Stage 4 GFR 15-29Stage 5 GFR <15 - Performed By: #### G FR1 ####[facility] [address] [phone] UR DRUG SCREEN-7 PANELon PCP NOT DETECTED Normal CUTOFF <25 [facility] Comment on above: Performed By: #### 4 [id number] ####[facility] [address] [phone] COCAINE/BE NOT DETECTED Normal CUTOFF <300 [facility] Comment on above: Performed By: #### 4 [id number] ####[facility] [address] [phone] MARIJUANA/THC NOT DETECTED Normal CUTOFF <50 [facility] Comment on above: Performed By: #### 4 [id number] ####[facility] [address] [phone] Urine, opiates presence NOT DETECTED Normal CUTOFF <300 [facility] Comment on above: Performed By: #### 4 [id number] ####[facility] [address] [phone] BARBITURATE NOT DETECTED Normal CUTOFF <200 [facility] Comment on above: Performed By: #### 4 [id number] ####[facility] [address] [phone] AMPHETAMINES/METH NOT DETECTED Normal CUTOFF <1000 [facility] Comment on above: Performed By: #### 4 [id number] ####[facility] [address] [phone] BENZODIAZEPINE NOT DETECTED Normal CUTOFF <200 [facility] Comment on above: Performed By: #### 4 [id number] ####[address] [phone] TOX MESSAGE see below Normal [facility] Comment on above: Result Comment: Note s: 1. SCREENING RESULTS SHOULD BE CONSIDERED PRESUMPTIVE UNLESS THE PRESENCE OF THE ANALYTE HAS BEEN CONFIRMED BY A REFERENCE LAB. 2. ALL DRUG GROUPS ARE ANALYZED ON URINE. Performed By: #### 4 [id number] ####[address] [phone] URINALYSISon 08-10-2017 AMORPHOUS CRYSTAL 1+ Normal [facility] Comment on above: Performed By: #### 4 [id number] ####[address] [phone] Bilirubin Ql (U) Negative Normal Negative [facility] Comment on above: Performed By: #### 4 [id number] ####[facility] [address] [phone] CULTURE SETUP Normal [facility] Comment on above: Performed By: #### 4 [id number] ####[address] [phone] LEUKOESTERASE Trace Abnormal Negative [facility] Comment on above: Performed By: #### 4 [id number] ####[address] [phone] MUCOUS-URINE Rare Normal [facility] Comment on above: Performed By: #### 4 [id number] ####[facility] [address] [phone] OCCULT BLOOD Negative Normal Negative [facility] Comment on above: Performed By: #### 4 [id number] ####[facility] [address] [phone] Urine, appearance Cloudy Normal [facility] Comment on above: Performed By: #### 4 [id number] ####[facility] [address] [phone] Urine, color Yellow Normal [facility] Comment on above: Performed By: #### 4 [id number] ####[facility] [address] [phone] Urine, erythrocytes in sediment by area 2 /[HPF] Normal 0-5 [facility] Comment on above: Performed By: #### 4 [id number] ####[facility] [address] [phone] Urine, glucose presence Negative Normal Negative [facility] Comment on above: Performed By: #### 4 [id number] ####[facility] [address] [phone] Urine, ketones presence Negative Normal Negative [facility] Comment on above: Performed By: #### 4 [id number] ####[facility] [address] [phone] Urine, leukocytes in sedmiment 6 /[HPF] High 0-5 [facility] Comment on above: Performed By: #### 4 [id number] ####[facility] [address] [phone] Urine, nitrite presence Negative Normal Negative [facility] Comment on above: Performed By: #### 4 [id number] ####[facility] [address] [phone] Urine, pH 8.0 [pH] Normal [facility] Comment on above: Performed By: #### 4 [id number] ####[facility] [address] [phone] Urine, protein presence Negative Normal Negative [facility] Comment on above: Performed By: #### 4 [id number] ####[facility] [address] [phone] Urine, specific gravity 1.016 Normal 1.003-1.029 [facility] Comment on above: Performed By: #### 4 [id number] ####[facility] [address] [phone] Urine, urobilinogen Negative Normal <2.0 [facility] Comment on above: Performed By: #### 4 [id number] ####[facility] [address] [phone] URINE SOURCE Not Specified Normal [facility] Comment on above: Performed By: #### 4 [id number] ####[facility] [address] [phone] URINE CULTUREon 08-10-2017 Urine culture, bacteria NO GROWTH--PRELIMINARY REPORT. NO GROWTH--FINAL REPORT. Normal [facility] Comment on above: Order Comment: Site: Not Specified Performed By: #### 4 [id number] ####[facility] [address] [phone] URINE PREG TESTon 08-10-2017 URINE PREG TEST Negative Normal [facility] Comment on above: Performed By: #### 4 [id number] ####[facility] [address] [phone] XR ABDOMEN 2 VIEWSon 018 XR ABDOMEN 2 VIEWS EXAMINATION:SUPINE A ND UPRIGHT VIEWS OF THE ABDOMEN08/10/2017 5:58 pmCOMPARISON:None.HIST ORY:allegedly swallowed a piece of metalallegedly swallowed a piece of metalFINDINGS:Moderate stool volume throughout the colon. No intestinal obstruction, freeintraperitoneal air or fluid. No pathologic distention GI tract, bowel walledema or mucosal thickening.IMPRESSION: No radiopaque metallic foreign bodies. 5 mm calcification projects in theparaspinal soft tissues which may reflect kidney stone. Abdomen pelvis CTsuggested if clinical concern of acute kidney stone.RECOMMENDATION:M oderate stool volume throughout the colon, 5 mm calcification projecting inleft paraspinal soft tissues. Abdomen pelvis CT suggested if clinicalconcern of acute urinary tract stone. Otherwise, radiographicallynonacu te/nonspecific abdomen. No metallic foreign body projecting in thecourse the GI tract on the current study. Normal [facility] XR CHEST PA AND LATERALon XR CHEST PA AND LATERAL EXAMINATION:TWO VIEWS OF THE CHEST08/10/2017 5:59 pmCOMPARISON:None.HIST ORY:allegedly swallowed a piece of metalallegedly swallowed a piece of metalFINDINGS:No radiopaque metallic foreign body seen projecting over the course of theesophagus or upper stomach.The lungs are without acute focal process. There is no effusion orpneumothorax. The cardiomediastinal silhouette is without acute process. Theosseous structures are without acute process.IMPRESSION:No acute process. Normal [facility] CT Head WOon 07-27-2017 CT Head WO [facility] Name: FLORES BORGES [address] [place] [address] Phys: [place] [address] : 1985 Age: 31 Acct: [id number] Loc: MRN/Unit No.: [id number] Status: REG ER Exam Date: 07/26/17 Accession Number: [id number] Exam: [id number] CT/CT Head WO CT Head WO CT HEAD WITHOUT CONTRAST CLINICAL HISTORY: Seizure. COMPARISON: No relevant prior study available at time of interpretation. TECHNIQUE: Axial CT images of the brain from skull base to vertex, including portions of the face and sinuses, were obtained without contrast. Multiplanar 2D reformatted images were generated and reviewed. Dose reduction techniques were achieved by using automated exposure control and/or adjustment of mA and/or kV according to patient size and/or use of iterative reconstruction technique. FINDINGS: Brain: No evidence of acute intracranial hemorrhage. No evidence of acute major vascular territory infarct. Unremarkable brain volume. CSF: [No mass effect, midline shift, or hydrocephalus. Patent basal cisterns. ] The visualized orbital structures are unremarkable. No large soft tissue abnormality of the scalp. No CT evidence of significant paranasal sinus or mastoid air cell disease. The calvarium is intact. The visualized mandible is unremarkable. IMPRESSION: No acute intracranial abnormality. If there is concern for an acute infarct, recommend MRI. CC: JOSE LUIS REESE; NO FAMILY DOCTOR Technologist: GINNY MCGILL Dictated By: ASTON FARIAS Signed Date/Time: 07/26/17, 2313 Dictated Date/Time: 07/26/17 183 Dashboard Developer: YURIY ASTORGA Printed Date/Time: , This report was electronically signed in another vendor system Normal [facility] Culture Urineon 07-27-2017 Culture Urine Bacteria Ur Cult: GROSS CONTAMINATION-SUGGEST REPEAT IF UTI STILL SUSPECTED Normal [facility] Comment on above: Performed By: #### C BCD ####[facility] [address] [place], [place] [phone] ,Phill Talavera M.D. FCAP, FASCP Acetaminophen Levelon 2017 Acetaminophen mass conc < 5.0 Low 10-30 [facility] Comment on above: Result Comment: Less than measurable rangeTHERAPEUTIC: 10-30 UG/MLPOSSIBLE TOXICITY: >100 UG/MLPROBABLE TOXICITY: >200 UG/ML Performed By: #### A CHARLENE, GORDO ####[facility] [address] [place] [address] [phone] ,Phill Talavera M.D. FCAP, FASCP CBC With Differentialon 07-17 CBC Manual Diff NO Normal [facility] Comment on above: Performed By: #### C BCD ####[facility] Rjx[address] [place], [place] [phone] ,Phill Talavera M.D. FCAP, FASCP Basophils Auto #/vol (Bld) 0.06 10:3/uL Normal 0.02-0.2 [facility] Comment on above: Performed By: #### C BCD ####[facility] [address] [place] [address] [phone] ,Phill Talavera M.D. FCAP, FASCP Basophils/100 WBC Auto (Bld) 0.6 % Normal 0-1.0 [facility] Comment on above: Performed By: #### C BCD ####[facility] [address] [place] [address] ,Phill Talavera M.D. FCAP, FASCP Eosinophils 0.11 10:3/uL Normal 0-0.5 [facility] Comment on above: Performed By: #### C BCD ####[facility] [place] [address] ,Phill Talavera M.D. FCAP, FASCP Eosinophils/100 leukocytes 1.2 % Normal 1.0-3.0 [facility] Comment on above: Performed By: #### C BCD ####[facility] [address] [place] [address] [phone] ,Phill Talavera M.D. FCAP, FASCP Erythrocytes (RBC) 4.82 10:6/uL Normal 3.80-5.20 [facility] Comment on above: Performed By: #### C BCD ####[facility] [address] [place] [address] [phone] ,Phill Talavera M.D. FCAP, FASCP Hematocrit (HCT) 43.9 % Normal 35.0-47.0 [facility] Comment on above: Performed By: #### C BCD ####[facility] Srx[address] [place] [address] ,Phill Talavera M.D. FCAP, FASCP Hemoglobin mass conc (Bld) 14.5 g/dL Normal 11.7-15.7 [facility] Comment on above: Performed By: #### C BCD ####[facility] Xhk[address] [place], [place] [id number] ,Phill Talavera M.D. FCAP, FASCP Lymphocytes 2.34 10:3/uL Normal 1.5-4.0 [facility] Comment on above: Performed By: #### C BCD ####[address] [phone] ,Phill Talavera M.D. FCAP, FASCP Lymphocytes/100 leukocytes 24.5 % Normal 20.0-40.0 [facility] Comment on above: Performed By: #### C BCD ####[address] [address] ,Phill Talavera M.D. FCAP, FASCP MCH 30.1 pg Normal 27.0-40.0 [facility] Comment on above: Performed By: #### C BCD ####[address] [address] ,Phill Talavera M.D. FCAP, FASCP MCV 91.1 CU uM Normal 80.0-100.0 [facility] Comment on above: Performed By: #### C BCD ####[address] [phone] ,Phill Talavera M.D. FCAP, FASCP Mean Corpusc Hgb Concentration 33.0 G/DL Normal 31.0-36.0 [facility] Comment on above: Performed By: #### C BCD ####[address] [phone] ,Phill Talavera M.D. FCAP, FASCP Monocytes 0.84 10:3/uL High 0.2-0.8 [facility] Comment on above: Performed By: #### C BCD ####[address] [phone] ,Phill Talavera M.D. FCAP, FASCP Monocytes/100 leukocytes 8.8 % Normal 4.0-10.0 [facility] Comment on above: Performed By: #### C BCD ####[facility] [address] [facility] [place] [phone] ,Phill Talavera M.D. FCAP, FASCP Neutrophils 6.17 10:3/uL Normal 2.0-7.0 [facility] Comment on above: Performed By: #### C BCD ####[facility] Wmk[address] [place] [address] ,Phill Talavera M.D. FCAP, FASCP Neutrophils/100 leukocytes 64.5 % High 54.0-62.0 [facility] Comment on above: Performed By: #### C BCD ####[facility] [address] [place] [address] ,Phill Talavera M.D. FCAP, FASCP Nucleated erythrocytes 0 10:3/uL Normal -0 [facility] Comment on above: Performed By: #### C BCD ####[facility] Hea[address] [place], [place] [phone] ,Phill Talavera M.D. FCAP, FASCP Nucleated erythrocytes 0 /100WBC Normal -0 [facility] Comment on above: Performed By: #### C BCD ####[facility] [address] [place] [address] ,Phill Talavera M.D. FCAP, FASCP Platelets 285 10:3/uL Normal 130-440 [facility] Comment on above: Performed By: #### C BCD ####[facility] [address]so[address] [place], [place] [phone] ,Phill Talavera M.D. FCAP, FASCP Red Cell Distribution 13.2 Normal 11.5-14.5 [facility] Comment on above: Performed By: #### C BCD ####[facility] Juq[address] [place], [place] [phone] ,Phill Talavera M.D. FCAP, FASCP WBC (Leukocytes) 9.6 10:3/uL Normal 3.5-11.0 [facility] Comment on above: Performed By: #### C BCD ####[facility] [address]dt[address] [place], [place] [phone] ,Phill Talavera M.D. FCAP, FASCP Cardiac Troponin Ton 018 Troponin T.cardiac mass conc ug/L Normal 0-0.74378 [facility] Comment on above: Result Comment: Less than measurable range Performed By: #### A DP, MG, TPNT, E ####[facility] Iqg[address] [place], [place] 7944250 ,Phill Talavera M.D. FCAP, FASCP Comprehensive Metabolic Pane roxy 07-26-2017 Albumin 4.2 g/dL Normal 4.0-4.9 [facility] Comment on above: Performed By: #### A DP, MG, TPNT, E ####[address] [phone] ,Phill Talavera M.D. FCAP, FASCP Alkaline phosphatase (ALP) 63 U/L Normal 35-104 [facility] Comment on above: Performed By: #### A DP, MG, TPNT, E ####[facility] [place] [address] [phone] ,Gustavo Butler, FASCP ALT Alanine Transamine 24 U/L Normal 5-33 [facility] Comment on above: Performed By: #### A DP, MG, TPNT, E ####[facility] Aoz[address] [place] [address] ,Phill Talavera M.D. FCAP, FASCP Anion gap 21 mmol/L High 9-18 [facility] Comment on above: Performed By: #### A DP, MG, TPNT, E ####[facility] [place] [address] ,Phill Talavera M.D. FCAP, FASCP AST Aspartate Transaminase 25 U/L Normal 5-32 [facility] Comment on above: Performed By: #### A DP, MG, TPNT, E ####[facility] [place] [address] ,Phill Talavera M.D. FCAP, FASCP Bilirubin (total) 0.3 mg/dL Normal 0.15-1.2 [facility] Comment on above: Performed By: #### A DP, MG, TPNT, E ####[address] [address] ,Phill Talavera M.D. FCAP, FASCP BUN (urea nitrogen) 17.2 mg/dL Normal 6-20 [facility] Comment on above: Performed By: #### A DP, MG, TPNT, E ####[facility] [place] [address] ,Gustavo ButlerAP, FASCP Calcium 9.6 mg/dL Normal 8.6-10.0 [facility] Comment on above: Performed By: #### A DP, MG, TPNT, E ####[facility] [address] [place] [address] ,Phill Talavera M.D. FCAP, FASCP Chloride 99 mmol/L Normal 98-107 [facility] Comment on above: Performed By: #### A DP, MG, TPNT, E ####[facility] Oyg[address] [place], [place] 4862950 ,Phill Talavera M.D. FCAP, FASCP CO2 19 mmol/L Low 22-29 [facility] Comment on above: Performed By: #### A DP, MG, TPNT, E ####[facility] Isd[address] [place] [address] ,Phill Talavera M.D. FCAP, FASCP Creatinine 0.80 mg/dL Normal 0.51-0.95 [facility] Comment on above: Performed By: #### A DP, MG, TPNT, E ####[facility] Xfa[address] [place] [address] ,Gustavo ButlerAP, FASCP eGFR (non-black) mL/min/{1.73_m2} Normal [facility] Comment on above: Result Comment: THE GFR IS ESTIMATED USING THE MDRD STUDY EQUATION.*NOTE* IF THE RACE OF THE PATIENT WAS UNKNOWN AT THE TIME OFREGISTRATION, AND THE PATIENT IS , MULTIPLYTHE EGFR RESULT PROVIDED BY 1.21.NORMAL: EGFR >60.0 Performed By: #### A DP, MG, TPNT, E ####[facility] Nmx[address] [place] [address] ,Phill Talavera M.D. FCAP, FASCP Glucose mass conc 106 mg/dL High 70-100 [facility] Comment on above: Result Comment: INTR EPRETATION FOR FASTING BLOOD GLUCOSE:70- 100 mg/dl NORMAL GLUCOSE PIRARHBVD754-127 mg/dl IMPAIRED FASTING GLUCOSE (PRE-DIABETES)>125 mg/dl DIABETES - ON MORE THAN ONE TESTING Performed By: #### A DP, MG, TPNT, E ####[facility] [address] [place] [address] ,Phill Talavera M.D. FCAP, FASCP Potassium molar conc 3.5 mmol/L Low 3.6-5.0 [facility] Comment on above: Performed By: #### A DP, MG, TPNT, E ####[facility] Nph[address] [place] [address] ,Phill Talavera M.D. FCAP, FASCP Protein 7.6 g/dL Normal 6.4-8.3 [facility] Comment on above: Performed By: #### A DP, MG, TPNT, E ####[facility] [address] [place] [address] ,Phill Talavera M.D. FCAP, FASCP Sodium 139 mmol/L Normal 136-145 [facility] Comment on above: Performed By: #### A DP, MG, TPNT, E ####[address] [address] ,Gustavo ButlerAP, FASCP Drug Screen Urine 11 panelon 07-26-2017 Alcohol Screen Urine Negative Normal NEG [facility] Comment on above: Performed By: #### D LEWIS ####[facility] [place] [address] ,Gustavo ButlerAP, FASCP Amphetamine Screen Urine Positive Abnormal NEG [facility] Comment on above: Performed By: #### D LEWIS ####[facility] Vii[address] [place] [address] ,Phill Talavera M.D. FCAP, FASCP Barbiturate Screen Urine Negative Normal NEG [facility] Comment on above: Performed By: #### D LEWIS ####[facility] [address] [place] [address] ,Phill Talavera M.D. FCAP, FASCP Benzodiazapine Screen Urine Negative Normal NEG [facility] Comment on above: Performed By: #### D LEWIS ####[facility] [address] [place] [address] ,Phill Talavera M.D. FCAP, FASCP Cocaine Screen Urine Negative Normal NEG [facility] Comment on above: Performed By: #### D LEWIS ####[facility] Csb[address] [place] [address] ,Phill Talavera M.D. FCAP, FASCP Marijuana Screen Urine Positive Abnormal NEG [facility] Comment on above: Performed By: #### D LEWIS ####[facility] [address] [place] [address] [place] [address] ,Phill Talavera M.D. FCAP, FASCP Methadone Screen Urine Negative Normal [facility] Comment on above: Performed By: #### D LEWIS ####[facility] [address] [place] [address] [place] [address] ,Phill Talavera M.D. FCAP, FASCP Opiate Screen Urine Negative Normal NEG [facility] Comment on above: Performed By: #### D LEWIS ####[facility] Mqw[address] [place] [address] ,Phill Talavera M.D. FCAP, FASCP Oxycodone Urine Negative Normal NEG [facility] Comment on above: Performed By: #### D LEWIS ####[facility] Awl[address] [place] [address] ,Phill Talavera M.D. FCAP, FASCP Phencyclidine Screen Urine Negative Normal NEG [facility] Comment on above: Performed By: #### D LEWIS ####[facility] Owf[address] [place] [address] ,Phill Talavera M.D. FCAP, FASCP Propoxyphene Screen Urine Negative Normal NEG [facility] Comment on above: Performed By: #### D LEWIS ####[facility] Uzc[address] [place] [address] ,Phill Talavera M.D. FCAP, FASCP Ethanol Bloodon 07-26-2017 Ethanol Blood Normal 0-99 [facility] Comment on above: Result Comment: Resu lt is less than minimum detection limit Performed By: #### A DP, MG, TPNT, E ####[facility] [address] [place] [address] ,Phill Talavera M.D. FCAP, FASCP Magnesium Bloodon 07-26-2017 Magnesium 2.0 MG/DL Normal 1.6-2.6 [facility] Comment on above: Performed By: #### A DP, MG, TPNT, E ####[address] [address] ,Gustavo Butler, FASCP Test Urineon 07-26 HCG ( test) Ql (U) Negative Normal NEGATIVE [facility] Comment on above: Order Comment: Sourc e Of Urine Specimen? Clean Catch` Performed By: #### P TU, U REFLEX ####[address] [address] ,Gustavo Butler, FASCP Salicylate Levelon 8 Salicylate Level < 0.3 Low 3-10 [facility] Comment on above: Result Comment: Less than measurable range Performed By: #### A CETA, GORDO ####[facility] [address] [place] [address] ,Gustavo Butler, FASCP Urinalysis with Reflex Cultu reon 07-26-2017 Calcium 20-30 Abnormal 0-5 [facility] Comment on above: Order Comment: Sourc e Of Urine Specimen? Clean Catch` Performed By: #### P TU, U REFLEX ####[facility] Vqc[address] [place], [place] 1569150 ,Phill Talavera M.D. FCAP, FASCP Hyaline Casts 0-2 Normal 0-2 [facility] Comment on above: Order Comment: Sourc e Of Urine Specimen? Clean Catch` Performed By: #### P TU, U REFLEX ####[facility] [address] [place] [address] [id number] ,Phill Talavera M.D. FCAP, FASCP Is a Culture Indicated? CULTURE ORDERED Normal [facility] Comment on above: Order Comment: Sourc e Of Urine Specimen? Clean Catch` Performed By: #### P TU, U REFLEX ####[address] [id number] ,Phill Talavera M.D. FCAP, FASCP Urine, mucus presence in sediment SMALL Normal NONE-SMALL [facility] Comment on above: Order Comment: Sourc e Of Urine Specimen? Clean Catch` Performed By: #### P TU, U REFLEX ####[facility] [address] [place] [address] [id number] ,Phill Talavera M.D. FCAP, FASCP Bilirubin Ql (U) Positive Abnormal NEGATIVE [facility] Comment on above: Order Comment: Sourc e Of Urine Specimen? Clean Catch` Result Comment: UNAB LE TO CONFIRM TEST DUE TO THE REAGENT NO LONGER BEINGAVAILABLE; INTERPRET TEST WITH CAUTION. Performed By: #### P TU, U REFLEX ####[facility] [address] [place] [address] [id number] ,Phill Talavera M.D. FCAP, FASCP Urine, erythrocytes 0-2 Normal 0-2 [facility] Comment on above: Order Comment: Sourc e Of Urine Specimen? Clean Catch` Performed By: #### P TU, U REFLEX ####[facility] Tip[address] [place] [address] ,Phill Talavera M.D. FCAP, FASCP Urine, leukocytes 5-10 Abnormal 0-5 [facility] Comment on above: Order Comment: Sourc e Of Urine Specimen? Clean Catch` Performed By: #### P TU, U REFLEX ####[facility] [address] [place] [address] ,Phill Talavera M.D. FCAP, FASCP Epithelial Cell 3-5 Abnormal 0-2 [facility] Comment on above: Order Comment: Sourc e Of Urine Specimen? Clean Catch` Performed By: #### P TU, U REFLEX ####[facility] Zdd[address] [place] [address] ,Phill Talavera M.D. FCAP, FASCP Character Urine CLOUDY Normal [facility] Comment on above: Order Comment: Sourc e Of Urine Specimen? Clean Catch` Performed By: #### P TU, U REFLEX ####[facility] [address] [place] [address] ,Phill Talavera M.D. FCAP, FASCP Urine, color YELLOW Normal [facility] Comment on above: Order Comment: Sourc e Of Urine Specimen? Clean Catch` Performed By: #### P TU, U REFLEX ####[facility] Vpj[address] [place] [address] ,Phill Talavera M.D. FCAP, FASCP Urine, glucose presence Negative Normal NEGATIVE [facility] Comment on above: Order Comment: Sourc e Of Urine Specimen? Clean Catch` Performed By: #### P TU, U REFLEX ####[facility] Zwp[address] [place] [address] ,Phill Talavera M.D. FCAP, FASCP Urine, hemoglobin presence 1+ Abnormal NEGATIVE [facility] Comment on above: Order Comment: Sourc e Of Urine Specimen? Clean Catch` Performed By: #### P TU, U REFLEX ####[facility] [address] [place] [address] ,Phill Talavera M.D. FCAP, FASCP Urine, ketones presence Negative Normal NEGATIVE [facility] Comment on above: Order Comment: Sourc e Of Urine Specimen? Clean Catch` Performed By: #### P TU, U REFLEX ####[facility] [address] [place] [address] ,Phill Talavera M.D. FCAP, FASCP Urine, leukocyte esterase presence SMALL Abnormal NEGATIVE [facility] Comment on above: Order Comment: Sourc e Of Urine Specimen? Clean Catch` Performed By: #### P TU, U REFLEX ####[address] [address] ,Phill Talavera M.D. FCAP, FASCP Urine, nitrite presence Negative Normal NEGATIVE [facility] Comment on above: Order Comment: Sourc e Of Urine Specimen? Clean Catch` Performed By: #### P TU, U REFLEX ####[facility] [place] [address] ,Phill Talavera M.D. FCAP, FASCP Urine, pH 6.0 [pH] Normal 5.0-8.5 [facility] Comment on above: Order Comment: Sourc e Of Urine Specimen? Clean Catch` Performed By: #### P TU, U REFLEX ####[facility] [address] [place] [address] ,Phill Talavera M.D. FCAP, FASCP Urine, protein presence 30 MG/DL Abnormal NEGATIVE [facility] Comment on above: Order Comment: Sourc e Of Urine Specimen? Clean Catch` Performed By: #### P TU, U REFLEX ####[facility] [id number] [place] [address] [id number] ,Phill Talavera M.D. FCAP, FASCP Urine, specific gravity 1.026 Normal 1.005-1.035 [facility] Comment on above: Order Comment: Sourc e Of Urine Specimen? Clean Catch` Performed By: #### P TU, U REFLEX ####[facility] [id number] [place], [place] [id number] ,Phill Talavera M.D. FCAP, FASCP Urine, urobilinogen 1.0 {Ayrely'U}/dL Normal 0-1.0 [facility] Comment on above: Order Comment: Sourc e Of Urine Specimen? Clean Catch` Performed By: #### P TU, U REFLEX ####[facility] [id number] [place], [place] [id number] ,Phill Talavera M.D. FCAP, FASCP Vital Signs Date Time Vital Sign Value Performing Clinician Facility 01-23-2023 15:06-0500 Blood Pressure Location FLORES ISABELL [facility] 01-23-2023 15:06-0500 Diastolic blood pressure 79 mm[Hg] FLORES ISABELL [facility] 01-23-2023 15:06-0500 Heart rate 68 /min FLORES ISABELL [facility] 01-23-2023 15:06-0500 Respiratory rate 16 /min FLORES ISABELL [facility] 01-23-2023 15:06-0500 Systolic blood pressure 128 mm[Hg] FLORES ISABELL [facility] 07-28-2022 13:23-0400 Body weight 104.[address] KAUSHAL APZ . [facility] Comment on above: Performed By: #### [id number] #### [facility] [address] [place] [address] Dr. Anthony Oneill 05-30-2022 14:09-0400 Blood Pressure Location FLORES WHYTE [facility] 05-30-2022 14:09-0400 Diastolic blood pressure 80 mm[Hg] LFORES ISABELL [facility] 05-30-2022 14:09-0400 Systolic blood pressure 126 mm[Hg] FLORES ISABELL [facility] 03-13-2022 02:36-0500 Body temperature 97.7 [degF] Kaylinn Dokken [facility] 03-13-2022 02:36-0500 Diastolic blood pressure 93 mm[Hg] Kaylinn Dokken [facility] 03-13-2022 02:36-0500 Heart rate 86 /min [facility] 03-13-2022 02:36-0500 Respiratory rate 18 /min [facility] 03-13-2022 02:36-0500 SaO2% (BldA) [Mass fraction] 99 % [facility] 03-13-2022 02:36-0500 Systolic blood pressure 143 mm[Hg] Kaylinn Dokken [facility] 02-26-2022 03:23-0500 Nursing Progress Note Reason Other: discharge instructions given. pt verbalzied understanding. Saima Moffett [facility] 02-26-2022 03:20-0500 Diastolic blood pressure 89 mm[Hg] [facility] 02-26-2022 03:20-0500 Heart rate 94 /min [facility] 02-26-2022 03:20-0500 Respiratory rate 16 /min [facility] 02-26-2022 03:20-0500 SaO2% (BldA) [Mass fraction] 97 % [facility] 02-26-2022 03:20-0500 Systolic blood pressure 125 mm[Hg] [facility] 02-26-2022 00:01-0500 Body temperature 99.86 [degF] [facility] 02-26-2022 00:01-0500 Diastolic blood pressure 88 mm[Hg] [facility] 02-26-2022 00:01-0500 Heart rate 82 /min [facility] 02-26-2022 00:01-0500 Respiratory rate 16 /min [facility] 02-26-2022 00:01-0500 SaO2% (BldA) [Mass fraction] 98 % [facility] 02-26-2022 00:01-0500 Systolic blood pressure 138 mm[Hg] [facility] 02-11-2022 12:30-0500 Diastolic blood pressure 78 mm[Hg] Jeff Maya [facility] 02-11-2022 12:30-0500 Heart rate 87 /min Jeff Maya [facility] 02-11-2022 12:30-0500 Mean blood pressure 94 mm[Hg] Jeff Maya [facility] 02-11-2022 12:30-0500 Respiratory rate 19 /min Jeff Maya [facility] 02-11-2022 12:30-0500 SaO2% (BldA) [Mass fraction] 97 % Jeff Maya [facility] 02-11-2022 12:30-0500 Systolic blood pressure 125 mm[Hg] Jeff Francesco [facility] 02-11-2022 11:52-0500 Body temperature 97.7 [degF] Jeff Maya [facility] 02-11-2022 11:52-0500 Diastolic blood pressure 78 mm[Hg] Jeff Maya [facility] 02-11-2022 11:52-0500 Heart rate 84 /min Jeff Francesco [facility] 02-11-2022 11:52-0500 Respiratory rate 18 /min Jeff Maya [facility] 02-11-2022 11:52-0500 SaO2% (BldA) [Mass fraction] 97 % Jeff Maya [facility] 02-11-2022 11:52-0500 Systolic blood pressure 123 mm[Hg] Jeff Maya [facility] 01-20-2022 09:42-0400 Body temperature 97.88 [degF] Jeff Maya [facility] 01-20-2022 09:42-0400 Diastolic blood pressure 79 mm[Hg] Jeff Maya [facility] 01-20-2022 09:42-0400 Heart rate 89 /min Jeff Francesco [facility] 01-20-2022 09:42-0400 Respiratory rate 18 /min Jeff Francesco [facility] 01-20-2022 09:42-0400 SaO2% (BldA) [Mass fraction] 98 % Jeff Maya [facility] 01-20-2022 09:42-0400 Systolic blood pressure 122 mm[Hg] Jeff Maya [facility] 12-26-2021 15:29-0400 Blood Pressure Location Antonio ROSE [facility] 12-26-2021 15:29-0400 Diastolic blood pressure 87 mm[Hg] Antonio ROSE [facility] 12-26-2021 15:29-0400 Heart rate 67 /min Antonio ROSE [facility] 12-26-2021 15:29-0400 Respiratory rate 16 /min Antonio ROSE [facility] 12-26-2021 15:29-0400 Systolic blood pressure 127 mm[Hg] Antonio ROSE [facility] 09-17-2021 02:37-0400 Diastolic blood pressure 99 mm[Hg] Kendrick Nicolas [facility] 09-17-2021 02:37-0400 Heart rate 85 /min Kendrick Nicolas [facility] 09-17-2021 02:37-0400 Mean blood pressure 109 mm[Hg] Kendrick Nicolas [facility] 09-17-2021 02:37-0400 Respiratory rate 16 /min Kendrick Nicolas [facility] 09-17-2021 02:37-0400 SaO2% (BldA) [Mass fraction] 98 % Kendrick Nicolas [facility] 09-17-2021 02:37-0400 Systolic blood pressure 130 mm[Hg] Kendrick Nicolas [facility] 09-17-2021 00:22-0400 Diastolic blood pressure 70 mm[Hg] Kendrick Nicolas [facility] 09-17-2021 00:22-0400 Heart rate 75 /min Kendrick Nicolas [facility] 09-17-2021 00:22-0400 Mean blood pressure 80 mm[Hg] Kendrick Nicolas [facility] 09-17-2021 00:22-0400 Respiratory rate 16 /min Kendrick Nicolas [facility] 09-17-2021 00:22-0400 SaO2% (BldA) [Mass fraction] 99 % Kendrick Nicolas [facility] 09-17-2021 00:22-0400 Systolic blood pressure 99 mm[Hg] Kendrick Nicolas [facility] 09-16-2021 22:50-0400 Body temperature 97.88 [degF] Kendrick Nicolas [facility] 09-16-2021 22:50-0400 Diastolic blood pressure 87 mm[Hg] Kendrick Nicolas [facility] 09-16-2021 22:50-0400 Heart rate 85 /min Kendrick Nicolas [facility] 09-16-2021 22:50-0400 Respiratory rate 18 /min Kendrick Nicolas [facility] 09-16-2021 22:50-0400 SaO2% (BldA) [Mass fraction] 95 % Kendrick Nicolas [facility] 09-16-2021 22:50-0400 Systolic blood pressure 125 mm[Hg] Kendrick Nicolas [facility] 08-25-2021 21:00-0400 Diastolic blood pressure 74 mm[Hg] Jeff Maya [facility] 08-25-2021 21:00-0400 Heart rate 95 /min Jeff Maya [facility] 08-25-2021 21:00-0400 SaO2% (BldA) [Mass fraction] 96 % Jeff Maya [facility] 08-25-2021 21:00-0400 Systolic blood pressure 110 mm[Hg] Jeff Maya [facility] 08-25-2021 20:28-0400 Body temperature 97.16 [degF] Jeff Maya [facility] 08-25-2021 20:28-0400 Diastolic blood pressure 75 mm[Hg] Jeff Maya [facility] 08-25-2021 20:28-0400 Heart rate 96 /min Jeff Maya [facility] 08-25-2021 20:28-0400 Respiratory rate 20 /min Jeff Maya [facility] 08-25-2021 20:28-0400 SaO2% (BldA) [Mass fraction] 95 % Jeff Maya [facility] 08-25-2021 20:28-0400 Systolic blood pressure 112 mm[Hg] Jeff Maya [facility] 05-04-2021 15:00-0500 Body height 172.72 cm Wero Pedroza Other [employer] Other 05-04-2021 15:00-0500 Body mass index (BMI) [Ratio] 37.25 kg/m2 Wero Pedroza Other [employer] Other 05-04-2021 15:00-0500 Body weight 111.13 kg Wero Pedroza Other [facility] [employer] Other 05-04-2021 15:00-0500 Diastolic blood pressure 66 mm[Hg] Wero Syedy Other [facility] [employer] Other 05-04-2021 15:00-0500 Systolic blood pressure 118 mm[Hg] Wero Elitty Other [facility] [employer] Other 03-23-2021 14:30-0500 Body weight 110.22 kg Wero Syedy Other [facility] [employer] Other Encounters Encounter Date Encounter Type Care Provider Facility Start: 03-15-2023 ambulatory Antonio ROSE [facility] ty:CD:[id number] Start: 02-14-2023 End: 02-15-2023 ambulatory Antonio ROSE Facility[facility] Start: 02-14-2023 End: 02-14-2023 Patient encounter procedure Antonio ROSE [facility] Start: 02-05-2023 End: 02-05-2023 ambulatory SPENCER KLINE Not Available Start: 01-23-2023 End: 01-24-2023 ambulatory FLORES WHYTE Facility:[facility] Start: 01-23-2023 End: 01-23-2023 Patient encounter procedure FLORES E ISABELL [facility] Start: 01-23-2023 End: 01-24-2023 ambulatory FLORES E ISABELL Facility:[facility] Start: 01-23-2023 End: 01-23-2023 Patient encounter procedure FLORES E ISABELL [facility] Start: 01-01-2023 ambulatory Antonio Epps ty:[facility] Start: 07-24-2022 End: 07-25-[address] KAUSHAL PAZ . Facility: Start: 07-05-2022 End: 07-05-[address] KAUSHAL PAZ . Facility: Start: 05-30-2022 End: 05-31-2022 ambulatory FLORES WHYTE Facility:[facility] Start: 05-30-2022 End: 05-30-2022 Patient encounter procedure FLORES WHYTE [facility] Start: 05-29-2022 End: 05-30-2022 ambulatory KEVIN KRISTI MADELYN Facility: Start: 05-29-2022 End: 05-30-[address] KAUSHAL PAZ . Facility: Start: 05-10-2022 End: 05-11-2022 ambulatory FLORES WHYTE Facility: Start: 03-13-2022 End: 03-13-2022 Emergency department patient visit DO Radhayenifer Marva Aaliyahwalter Facility:[facility] Start: 03-13-2022 End: 03-13-2022 Emergency department patient visit Jose Teran [facility] Start: 02-26-2022 End: 02-26-2022 Emergency department patient visit Saima Lyyasmany Facility:[facility] Start: 02-25-2022 End: 02-26-2022 Emergency department patient visit Saima Art Zuhair [facility] Start: 02-11-2022 End: 02-11-2022 Emergency department patient visit Jeff Maya [facility] Start: 01-27-2022 End: 01-28-[address] ANTONIO ROSE . Facility:[facility] Start: 01-20-2022 End: 01-20-2022 Emergency department patient visit Jeff Maya [facility] Start: 12-26-2021 End: 12-26-2021 Patient encounter procedure Antonio ROSE [facility] Start: 12-12-2021 End: 12-13-[address] ANTONIO ROSE . Facility: Start: 10-17-2021 End: 10-17-2021 Patient encounter procedure WERO PEDROZA [facility] Start: 09-16-2021 End: 09-17-2021 Emergency department patient visit Kendrick Valenzuela [facility] Start: 08-25-2021 End: 08-25-2021 Emergency department patient visit Jeff Maya [facility] Start: 06-27-2021 End: 06-27-2021 Patient encounter procedure WERO PEDROZA [facility] Start: 05-04-2021 End: 05-04-2021 ambulatory Wero Syedy Other [employer] Other Start: 05-04-2021 Patient encounter procedure Wero Pedroza [facility] Start: 03-23-2021 End: 03-23-2021 ambulatory Wero Syedy Other [employer] Other Start: 03-23-2021 [facility] visit new patient Wero Pedroza [facility] Start: 08-10-2017 End: 08-10-2017 Emergency department patient visit KAUSHAL [facility] Start: 07-26-2017 End: 07-27-2017 Emergency department patient visit CHELSEA TEJADA Facility:[facility] Procedures Date Procedure Procedure Detail Performing Clinician Start: 05-11-2015 Nephrostomy tube (ph ysical object) WERO REINIER Start: 04-14-2015 Cystoscopy WERO NICOLAS LEPE Start: 03-08-2015 Cystoscopy WERO NICOLAS LEPE Start: 10-26-2014 cystoscopy, urethral dilatation, right retrograde pyelogram, right double J ureteral stent placement under fluoroscopic guidance WERO PEDROZA Start: 09-05-2014 section NORMA Whitley REINIER Exploratory laparotomy [place] RE[place] Immunizations Immunization Date Immunization Notes Care Provider Fa [facility] 09-26-2019 tetanus toxoid, redu dago diphtheria toxoid, and acellular pertussis vaccine, adsorbed; Translations: [Adacel (Tdap)] WERO PEDROZA [facility] Payers Date Payer Category Payer Self-pay 1986 Unknown [id number] ..84 [id number] 1986 Unknown [id number] .. [id number] 1986 Unknown [id number] ..[id number] 1986 Unknown [id number] ..[id number] 1986 Unknown [id number] .16.84 [id number] 1986 Unknown [id number] ..[id number] 1986 Unknown [id number] .16.84 [id number] 1986 Unknown [id number] 2.16.840 .[id number] 1986 Unknown [id number] 2.16.8 [id number] 1986 Unknown [id number] 2.16.8 [id number] 1986 Unknown [id number] 2.16.8 [id number] 1986 Unknown [id number] 2.16.8 [id number] 1986 Unknown [id number] 2.16.8 [id number] 1986 Unknown [id number] 2.16.8 [id number] 1986 Unknown [id number] 2.16.8 [id number] 1959 Medicaid [id number] 1958 Unknown [id number] 2.1 [id number] Social History Date Type Detail Facility Start: 11-30-2020 Tobacco smoking status Ex-smoker (fi nding) [facility] [employer] Other Sex Assigned At Female [facility] [employer] Other Start: 08-25-2021 Tobacco smoking status Light t obacco smoker (finding) [facility] Start: 01-23-2023 Tobacco smoking status Heavy t obacco smoker (finding) [facility] Tobacco smoking status Never [facility] Functional Status Date Assessment Result Facility 01-23-2023 Functional Status N/A [facility] 05-30-2022 Functional Status N/A [facility] 03-13-2022 Functional Status N/A [facility] 02-26-2022 Functional Status N/A [facility] 02-11-2022 Functional Status N/A [facility] 01-20-2022 Functional Status Yes [facility] 12-26-2021 Functional Status N/A [facility] 09-16-2021 Functional Status N/A [facility] Clinical Notes 03-23-2021 to 01-23-2023 Note Date & Type Note Facility 01-23-2023 Hospital Discharg e instructions Patient Education 01/23/2023 15:28:24 Dietary Guidelines to Help Prevent Kidney Stones Dietary Guidelines to Help Prevent Kidney Stones Kidney stones are deposits of minerals and salts that form inside your kidneys. Your risk of developing kidney stones may be greater depending on your diet, your lifestyle, the medicines you take, and whether you have certain medical conditions. Most people can lower their chances of developing kidney stones by following the instructions below. Your dietitian may give you more specific instructions depending on your overall health and the type of kidney stones you tend to develop. What are tips for following this plan? Reading food labels Choose foods with no salt added or low-salt labels. Limit your salt (sodium) intake to less than 1,500 mg a day. Choose foods with calcium for each meal and snack. Try to eat about 300 mg of calcium at each meal. Foods that contain 200 500 mg of calcium a serving include: ?8 oz (237 mL) of milk, owyeigi-qaxqhiczmnos-lscfb milk, and calcium-fortifiedfruit juice. Calcium-fortified means that calcium has been added to these drinks. ?8 oz (237 mL) of kefir, yogurt, and soy yogurt. ?4 oz (114 g) of tofu. ?1 oz (28 g) of cheese. ?1 cup (150 g) of dried figs. ?1 cup (91 g) of cooked broccoli. ?One 3 oz (85 g) can of sardines or mackerel. Most people need 1,000 1,500 mg of calcium a day. Talk to your dietitian about how much calcium is recommended for you. Shopping Buy plenty of fresh fruits and vegetables. Most people do not need to avoid fruits and vegetables, even if these foods contain nutrients that may contribute to kidney stones. When shopping for convenience foods, choose: ?Whole pieces of fruit. ?Pre-made salads with dressing on the side. ?Low-fat fruit and yogurt smoothies. Avoid buying frozen meals or prepared deli foods. These can be high in sodium. Look for foods with live cultures, such as yogurt and kefir. Choose high-fiber grains, such as whole-wheat breads, oat bran, and wheat cereals. Cooking Do not add salt to food when cooking. Place a salt shaker on the table and allow each person to add his or her own salt to taste. Use vegetable protein, such as beans, textured vegetable protein (TVP), or tofu, instead of meat in pasta, casseroles, and soups. Meal planning Eat less salt, if told by your dietitian. To do this: ?Avoid eating processed or pre-made food. ?Avoid eating fast food. Eat less animal protein, including cheese, meat, poultry, or fish, if told by your dietitian. To do this: ?Limit the number of times you have meat, poultry, fish, or cheese each week. Eat a diet free of meat at least 2 days a week. ?Eat only one serving each day of meat, poultry, fish, or seafood. ?When you prepare animal protein, cut pieces into small portion sizes. For most meat and fish, one serving is about the size of the palm of your hand. Eat at least five servings of fresh fruits and vegetables each day. To do this: ?Keep fruits and vegetables on hand for snacks. ?Eat one piece of fruit or a handful of berries with breakfast. ?Have a salad and fruit at lunch. ?Have two kinds of vegetables at dinner. Limit foods that are high in a substance called oxalate. These include: ?Spinach (cooked), rhubarb, beets, sweet potatoes, and [place] chard. ?Peanuts. ?Potato chips, beninese fries, and baked potatoes with skin on. ?Nuts and nut products. ?Chocolate. If you regularly take a diuretic medicine, make sure to eat at least 1 or 2 servings of fruits or vegetables that are high in potassium each day. These include: ?Avocado. ?Banana. ?[place], prune, carrot, or tomato juice. ?Baked potato. ?Cabbage. ?Beans and split peas. Lifestyle Drink enough fluid to keep your urine pale yellow. This is the most important thing you can do. Spread your fluid intake throughout the day. If you drink alcohol: ?Limit how much you use to: ?0 1 drink a day for women who are not . ?0 2 drinks a day for men. ?Be aware of how much alcohol is in your drink. In the [place] one drink equals one 12 oz bottle of beer (355 mL), one 5 oz glass of wine (148 mL), or one 1 oz glass of hard liquor (44 mL). Lose weight if told by your health care provider. Work with your dietitian to find an eating plan and weight loss strategies that work best for you. General information Talk to your health care provider and dietitian about taking daily supplements. You may be told the following depending on your health and the cause of your kidney stones: ?Not to take supplements with vitamin C. ?To take a calcium supplement. ?To take a daily probiotic supplement. ?To take other supplements such as magnesium, fish oil, or vitamin B6. Take hxyf-ufj-msvmkwu and prescription medicines only as told by your health care provider. These include supplements. What foods should I limit? Limit your intake of the following foods, or eat them as told by your dietitian. Vegetables Spinach. Rhubarb. Beets. Canned vegetables. Pickles. Olives. Baked potatoes with skin. Grains Wheat bran. Baked goods. Salted crackers. Cereals high in sugar. Meats and other proteins Nuts. Nut butters. Large portions of meat, poultry, or fish. Salted, precooked, or cured meats, such as sausages, meat loaves, and hot dogs. Dairy Cheese. Beverages Regular soft drinks. Regular vegetable juice. Seasonings and condiments Seasoning blends with salt. Salad dressings. Soy sauce. Ketchup. Barbecue sauce. Other foods Canned soups. Canned pasta sauce. Casseroles. Pizza. Lasagna. Frozen meals. Potato chips. Hungarian fries. The items listed above may not be a complete list of foods and beverages you should limit. Contact a dietitian for more information. What foods should I avoid? Talk to your dietitian about specific foods you should avoid based on the type of kidney stones you have and your overall health. Fruits Grapefruit. The item listed above may not be a complete list of foods and beverages you should avoid. Contact a dietitian for more information. Summary Kidney stones are deposits of minerals and salts that form inside your kidneys. You can lower your risk of kidney stones by making changes to your diet. The most important thing you can do is drink enough fluid. Drink enough fluid to keep your urine pale yellow. Talk to your dietitian about how much calcium you should have each day, and eat less salt and animal protein as told by your dietitian. This information is not intended to replace advice given to you by your health care provider. Make sure you discuss any questions you have with your health care provider. Document Revised: 11/14/2021 Document Reviewed: 11/14/2021 [employer] Patient Education 2022 [employer]. Follow Up Care 01/18/2023 11:12:25 With:ISABELL CORREIA, FLORES Gonzalez, URL Address: [address] [place] [address] [phone] When: Unknown Comments:will call pt [facility] 05-30-2022 [facility] Discharg e instructions Patient Education 05/30/2022 14:22:17 Kidney Stones, Rqan-qm-Svfs Kidney Stones Kidney stones are rock-like masses that form inside of the kidneys. Kidneys are organs that make pee (urine). A kidney stone may move into other parts of the urinary tract, including: The tubes that connect the kidneys to the bladder (ureters). The bladder. The tube that carries urine out of the body (urethra). Kidney stones can cause very bad pain and can block the flow of pee. The stone usually leaves your body (passes) through your pee. You may need to have a doctor take out the stone. What are the causes? Kidney stones may be caused by: A condition in which certain glands make too much parathyroid hormone (primary hyperparathyroidism). A buildup of a type of crystals in the bladder made of a chemical called uric acid. The body makes uric acid when you eat certain foods. Narrowing (stricture) of one or both of the ureters. A kidney blockage that you were born with. Past surgery on the kidney or the ureters, such as gastric bypass surgery. What increases the risk? You are more likely to develop this condition if: You have had a kidney stone in the past. You have a family history of kidney stones. You do not drink enough water. You eat a diet that is high in protein, salt (sodium), or sugar. You are overweight or very overweight (obese). What are the signs or symptoms? Symptoms of a kidney stone may include: Pain in the side of the belly, right below the ribs (flank pain). Pain usually spreads (radiates) to the groin. Needing to pee often or right away (urgently). Pain when going pee (urinating). Blood in your pee (hematuria). Feeling like you may vomit (nauseous). Vomiting. Fever and chills. How is this treated? Treatment depends on the size, location, and makeup of the kidney stones. The stones will often pass out of the body through peeing. You may need to: Drink more fluid to help pass the stone. In some cases, you may be given fluids through an IV tube put into one of your veins at the hospital. Take medicine for pain. Make changes in your diet to help keep kidney stones from coming back. Sometimes, medical procedures are needed to remove a kidney stone. This may involve: A procedure to break up kidney stones using a beam of light (laser) or shock waves. Surgery to remove the kidney stones. Follow these instructions at home: Medicines Take xstc-spd-kjvmapa and prescription medicines only as told by your doctor. Ask your doctor if the medicine prescribed to you requires you to avoid driving or using heavy machinery. Eating and drinking Drink enough fluid to keep your pee pale yellow. You may be told to drink at least 8 10 glasses of water each day. This will help you pass the stone. If told by your doctor, change your diet. This may include: ?Limiting how much salt you eat. ?Eating more fruits and vegetables. ?Limiting how much meat, poultry, fish, and eggs you eat. Follow instructions from your doctor about eating or drinking restrictions. General instructions Collect pee samples as told by your doctor. You may need to collect a pee sample: ?24 hours after a stone comes out. ?8 12 weeks after a stone comes out, and every 6 12 months after that. Strain your pee every time you pee (urinate), for as long as told. Use the strainer that your doctor recommends. Do not throw out the stone. Keep it so that it can be tested by your doctor. Keep all follow-up visits as told by your doctor. This is important. You may need follow-up tests. How is this prevented? To prevent another kidney stone: Drink enough fluid to keep your pee pale yellow. This is the best way to prevent kidney stones. Eat healthy foods. Avoid certain foods as told by your doctor. You may be told to eat less protein. Stay at a healthy weight. Where to find more information National Kidney Foundation (NKF): www.kidney.org [facility] (UCF): www.urologyhealth.org Contact a doctor if: You have pain that gets worse or does not get better with medicine. Get help right away if: You have a fever or chills. You get very bad pain. You get new pain in your belly (abdomen). You pass out (faint). You cannot pee. Summary Kidney stones are rock-like masses that form inside of the kidneys. Kidney stones can cause very bad pain and can block the flow of pee. The stones will often pass out of the body through peeing. Drink enough fluid to keep your pee pale yellow. This information is not intended to replace advice given to you by your health care provider. Make sure you discuss any questions you have with your health care provider. Document Released: 08/21/2008 Document Revised: 07/22/2019 Document Reviewed: 07/22/2019 [employer] Patient Education 2020 [employer]. Follow Up Care 02/03/2022 10:51:16 With:FLORES WHYTE PA-C, URL Address: [address] [place] [address] When: Unknown [facility] 03-13-2022 Evaluation + Plan note Extrac aleisha from: Title:ED Note Author:Jose Teran DO Date :03/13/22 Toe fracture (S92.919A: Unsp ecified fracture of unspecified toe(s), initial encounter for closed fracture) Orders: acetaminophen-hydrocodone, 1 EA, Tab, Oral, Once, Stop date 03/13/22 3:15:00 EST, STAT, Start date 03/13/22 3:15:00 EST Post-op Shoe XR Foot 3+ Views Left Future Appointments Appointment Date:05/09/2022 01:00:00 PM Scheduled Provider:FLORES WHYTE PA-C Location:[facility] Appointment Type:URO Office Visit Appointment Date:01/01/2023 01:15:00 PM Scheduled Provider:Antonio ROSE MD Location:[facility] Appointment Type:URO Office Visit [facility]12-26-2022 Hospital Discharge instructions Patient Education 03/13/2022 03:31:06 Toe Fracture, Lgkl-fb-Iqcn Toe Fracture A toe fracture is a break in one of the toe bones (phalanges). This may happen if you: Drop a heavy object on your toe. Stub your toe. Twist your toe. Exercise the same way too much. What are the signs or symptoms? The main symptoms are swelling and pain in the toe. You may also have: Bruising. Stiffness. Numbness. A change in the way the toe looks. Broken bones that poke through the skin. Blood under the toenail. How is this treated? Treatments may include: Taping the broken toe to a toe that is next to it (nita taping). Wearing a shoe that has a wide, rigid sole to protect the toe and to limit its movement. Wearing a cast. Surgery. This may be needed if the: ?Pieces of broken bone are out of place. ?Bone pokes through the skin. Physical therapy. Follow these instructions at home: If you have a shoe: Wear the shoe as told by your doctor. Remove it only as told by your doctor. Loosen the shoe if your toes tingle, become numb, or turn cold and blue. Keep the shoe clean and dry. If you have a cast: Do not put pressure on any part of the cast until it is fully hardened. This may take a few hours. Do not stick anything inside the cast to scratch your skin. Check the skin around the cast every day. Tell your doctor about any concerns. You may put lotion on dry skin around the edges of the cast. Do not put lotion on the skin under the cast. Keep the cast clean and dry. Bathing Do not take baths, swim, or use a hot tub until your doctor says it is okay. Ask your doctor if youcan take showers. If the shoe or cast is not waterproof: ?Do not let it get wet. ?Cover it with a watertight covering when you take a bath or a shower. Activity Do not use your foot to support your body weight until your doctor says it is okay. Use crutches as told by your doctor. Ask your doctor what activities are safe for you during recovery. Avoid activities as told by your doctor. Do exercises as told by your doctor or therapist. Driving Do not drive or use heavy machinery while taking pain medicine. Do not drive while wearing a cast on a foot that you use for driving. Managing pain, stiffness, and swelling Put ice on the injured area if told by your doctor: ?Put ice in a plastic bag. ?Place a towel between your skin and the bag. ?If you have a shoe, remove it as told by your doctor. ?If you have a cast, place a towel between your cast and the bag. ?Leave the ice on for 20 minutes, 2 3 times per day. Raise (elevate) the injured area above the level of your heart while you are sitting or lying down. General instructions If your toe was taped to a toe that is next to it, follow your doctor's instructions for changing the gauze and tape. Change it more often: ?If the gauze and tape get wet. If this happens, dry the space between the toes. ?If the gauze and tape are too tight and they cause your toe to become pale or to lose feeling (go numb). If your doctor did not give you a protective shoe, wear sturdy shoes that support your foot. Your shoes should not: ?Pinch your toes. ?Fit tightly against your toes. Do not use any tobacco products, including cigarettes, chewing tobacco, or e- cigarettes. These can delay bone healing. If you need help quitting, ask your doctor. Take medicines only as told by your doctor. Keep all follow-up visits as told by your doctor. This is important. Contact a doctor if: Your pain medicine is not helping. You have a fever. You notice a bad smell coming from your cast. Get help right away if: You lose feeling (have numbness) in your toe or foot, and it is getting worse. Your toe or your foot tingles. Your toe or your foot gets cold or turns blue. You have redness or swelling in your toe or foot, and it is getting worse. You have very bad pain. Summary A toe fracture is a break in one of the toe bones. Use ice and raise your foot. This will help lessen pain and swelling. Use crutches as told by your doctor. This information is not intended to replace advice given to you by your health care provider. Make sure you discuss any questions you have with your health care provider. Document Released: 08/21/2008 Document Revised: 05/09/2018 Document Reviewed: 04/16/2018 [employer] Patient Education [employer]. Follow Up Care 03/13/2022 02:36:09 With:Leigh Gonzalez Address: [address] [place] [id number] [employer] (1) When:03/16/2022 Comments:Use the pain medication every 6 hours as needed for pain. Please follow-up with orthopedics for further evaluation management. Please return to ED for any new or worsening symptoms. With:DOMO KLINE Address: [address] [place] [id number] [employer] (1) When:03/16/2022 [facility]12-11-2022 Evaluation + Plan noteExtracted from: Title:ED Note Author:Saima Moffett M.D. te:02/26/22 1. Headache (R51.9: Headache , unspecified) Orders: diphenhydrAMINE, 50 mg = 1 mL, Injection, IV Push, Once, Stop date 02/26/22 0:32:00 EST, STAT, Start date 02/26/22 0:32:00 EST, 02/26/22 0:32:00 EST ketorolac, 30 mg = 1 mL, Injection, IV Push, Once, Stop date 02/26/22 0:32:00 EST, STAT, Start date 02/26/22 0:32:00 EST, 02/26/22 0:32:00 EST metoclopramide, 10 mg = 2 mL, Injection, IV Push, Once, Stop date 02/26/22 0:32:00 EST, STAT, Start date 02/26/22 0:32:00 EST, 02/26/22 0:32:00 EST Sodium Chloride 0.9% intravenous solution, 500 mL, Soln-IV, IV, Once, Stop date 02/26/22 0:32:00 EST, STAT, Start date 02/26/22 0:32:00 EST, 500 mL/hr, Infuse over 1, hour(s) Sedimentation Rate Automated Future Appointments Appointment Date:05/09/2022 01:00:00 PM Scheduled Provider:FLORES WHYTE PA-C Location:[facility] Appointment Type:URO Office Visit Appointment Date:01/01/2023 01:15:00 PM Scheduled Provider:Antonio ROSE MD Location:[facility] Appointment Type:URO Office Visit [facility]12-11-2022 Hospital Discharge instructions Patient Education 02/26/2022 03:24:36 General Headache Without Cause General Headache Without Cause A headache is pain or discomfort felt around the head or neck area. The specific cause of a headache may not be found. There are many causes and types of headaches. A few common ones are: Tension headaches. Migraine headaches. Cluster headaches. Chronic daily headaches. Follow these instructions at home: Watch your condition for any changes. Let your health care provider know about them. Take these steps to help with your condition: Managing pain Take yjvj-rwx-laqbgxn and prescription medicines only as told by your health care provider. Lie down in a dark, quiet room when you have a headache. If directed, put ice on your head and neck area: ?Put ice in a plastic bag. ?Place a towel between your skin and the bag. ?Leave the ice on for 20 minutes, 2 3 times per day. If directed, apply heat to the affected area. Use the heat source that your health care provider recommends, such as a moist heat pack or a heating pad. ?Place a towel between your skin and the heat source. ?Leave the heat on for 20 30 minutes. ?Remove the heat if your skin turns bright red. This is especially important if you are unable to feel pain, heat, or cold. You may have a greater risk of getting burned. Keep lights dim if bright lights bother you or make your headaches worse. Eating and drinking Eat meals on a regular schedule. If you drink alcohol: ?Limit how much you use to: ?0 1 drink a day for women. ? 0 2 drinks a day for men. ?Be aware of how much alcohol is in your drink. In the [place] one drink equals one 12 oz bottle of beer (355 mL), one 5 oz glass of wine (148 mL), or one 1 oz glass of hard liquor (44 mL). Stop drinking caffeine, or decrease the amount of caffeine you drink. General instructions Keep a headache journal to help find out what may trigger your headaches. For example, write down: ?What you eat and drink. ?How much sleep you get. ?Any change to your diet or medicines. Try massage or other relaxation techniques. Limit stress. Sit up straight, and do not tense your muscles. Do not use any products that contain nicotine or tobacco, such as cigarettes, e- cigarettes, and chewing tobacco. If you need help quitting, ask your health care provider. Exercise regularly as told by your health care provider. Sleep on a regular schedule. Get 7 9 hours of sleep each night, or the amount recommended by your health care provider. Keep all follow-up visits as told by your health care provider. This is important. Contact a health care provider if: Your symptoms are not helped by medicine. You have a headache that is different from the usual headache. You have nausea or you vomit. You have a fever. Get help right away if: Your headache becomes severe quickly. Your headache gets worse after moderate to intense physical activity. You have repeated vomiting. You have a stiff neck. You have a loss of vision. You have problems with speech. You have pain in the eye or ear. You have muscular weakness or loss of muscle control. You lose your balance or have trouble walking. You feel faint or pass out. You have confusion. You have a seizure. Summary A headache is pain or discomfort felt around the head or neck area. There are many causes and types of headaches. In some cases, the cause may not be found. Keep a headache journal to help find out what may trigger your headaches. Watch your condition for any changes. Let your health care provider know about them. Contact a health care provider if you have a headache that is different from the usual headache, orif your symptoms are not helped by medicine. Get help right away if your headache becomes severe, you vomit, you have a loss of vision, you loseyour balance, or you have a seizure. This information is not intended to replace advice given to you by your health care provider. Make sure you discuss any questions you have with your health care provider. Document Released: 03/05/2006 Document Revised: 09/23/2018 Document Reviewed: 09/23/2018 [employer] Patient Education 2020 [employer] Follow Up Care 02/25/2022 23:48:18 With:DOMO KLINE Address: [address] [facility] [address] [place] [address] [facility] (1) When:03/01/2022 Comments:Return to the emergency room if your headache recurs or any new symptoms [facility]11-26-2022 Hospital Discharge instructions Patient Education 02/11/2022 12:52:36 Back Exercises Back Exercises The following exercises strengthen the muscles that help to support the trunk and back. They also help to keep the lower back flexible. Doing these exercises can help to prevent back pain or lessen existing pain. If you have back pain or discomfort, try doing these exercises 2 3 times each day or as told by your health care provider. As your pain improves, do them once each day, but increase the number of times that you repeat the steps for each exercise (do more repetitions). To prevent the recurrence of back pain, continue to do these exercises once each day or as told by your health care provider. Do exercises exactly as told by your health care provider and adjust them as directed. It is normalto feel mild stretching, pulling, tightness, or discomfort as you do these exercises, but you should stop right away if you feel sudden pain or your pain gets worse. Exercises Single knee to chest Repeat these steps 3 5 times for each le.Lie on your back on a firm bed or the floor with your legs extended. 2.Bring one knee to your chest. Your other leg should stay extended and in contact with the floor. 3.Hold your knee in place by grabbing your knee or thigh with both hands and hold. 4.Pull on your knee until you feel a gentle stretch in your lower back or buttocks. 5.Hold the stretch for 10 30 seconds. 6.Slowly release and straighten your leg. Pelvic tilt Repeat these steps 5 10 times: 1.Lie on your back on a firm bed or the floor with your legs extended. 2.Bend your knees so they are pointing toward the ceiling and your feet are flat on the floor. 3.Tighten your lower abdominal muscles to press your lower back against the floor. This motion willtilt your pelvis so your tailbone points up toward the ceiling instead of pointing to your feet or the floor. 4.With gentle tension and even breathing, hold this position for 5 10 seconds. Cat-cow Repeat these steps until your lower back becomes more flexible: 1.Get into a jlhwj-doq-fhemi position on a firm surface. Keep your hands under your shoulders, and keep your knees under your hips. You may place padding under your knees for comfort. 2.Let your head hang down toward your chest. Contract your abdominal muscles and point your tailbone toward the floor so your lower back becomes rounded like the back of a cat. 3.Hold this position for 5 seconds. 4.Slowly lift your head, let your abdominal muscles relax and point your tailbone up toward the ceiling so your back forms a sagging arch like the back of a cow. 5.Hold this position for 5 seconds. Press-ups Repeat these steps 5 10 times: 1.Lie on your abdomen (face-down) on the floor. 2.Place your palms near your head, about shoulder-width apart. 3.Keeping your back as relaxed as possible and keeping your hips on the floor, slowly straighten your arms to raise the top half of your body and lift your shoulders. Do not use your back muscles to raise your upper torso. You may adjust the placement of your hands to make yourself more comfortable. 4.Hold this position for 5 seconds while you keep your back relaxed. 5.Slowly return to lying flat on the floor. Bridges Repeat these steps 10 times: 1.Lie on your back on a firm surface. 2.Bend your knees so they are pointing toward the ceiling and your feet are flat on the floor. Yourarms should be flat at your sides, next to your body. 3.Tighten your buttocks muscles and lift your buttocks off the floor until your waist is at almost the same height as your knees. You should feel the muscles working in your buttocks and the back of your thighs. If you do not feel these muscles, slide your feet 1 2 inches farther away from your buttocks. 4.Hold this position for 3 5 seconds. 5.Slowly lower your hips to the starting position, and allow your buttocks muscles to relax completely. If this exercise is too easy, try doing it with your arms crossed over your chest. Abdominal crunches Repeat these steps 5 10 times: 1.Lie on your back on a firm bed or the floor with your legs extended. 2.Bend your knees so they are pointing toward the ceiling and your feet are flat on the floor. 3.Cross your arms over your chest. 4.Tip your chin slightly toward your chest without bending your neck. 5.Tighten your abdominal muscles and slowly raise your trunk (torso) high enough to lift your shoulder blades a tiny bit off the floor. Avoid raising your torso higher than that because it can put too much stress on your low back and does not help to strengthen your abdominal muscles. 6.Slowly return to your starting position. Back lifts Repeat these steps 5 10 times: 1.Lie on your abdomen (face-down) with your arms at your sides, and rest your forehead on the floor. 2.Tighten the muscles in your legs and your buttocks. 3.Slowly lift your chest off the floor while you keep your hips pressed to the floor. Keep the backof your head in line with the curve in your back. Your eyes should be looking at the floor. 4.Hold this position for 3 5 seconds. 5.Slowly return to your starting position. Contact a health care provider if: Your back pain or discomfort gets much worse when you do an exercise. Your worsening back pain or discomfort does not lessen within 2 hours after you exercise. If you have any of these problems, stop doing these exercises right away. Do not do them again unless your health care provider says that you can. Get help right away if: You develop sudden, severe back pain. If this happens, stop doing the exercises right away. Do not do them again unless your health care provider says that you can. This information is not intended to replace advice given to you by your health care provider. Make sure you discuss any questions you have with your health care provider. Document Released: 04/12/2005 Document Revised: 07/10/2019 Document Reviewed: 12/05/2018 [employer] Patient Education 2020 [employer]. 02/11/2022 12:52:36 Acute Back Pain, Adult Acute Back Pain, Adult Acute back pain is sudden and usually short-lived. It is often caused by an injury to the muscles and tissues in the back. The injury may result from: A muscle or ligament getting overstretched or torn (strained). Ligaments are tissues that connect bones to each other. Lifting something improperly can cause a back strain. Wear and tear (degeneration) of the spinal disks. Spinal disks are circular tissue that provides cushioning between the bones of the spine (vertebrae). Twisting motions, such as while playing sports or doing yard work. A hit to the back. Arthritis. You may have a physical exam, lab tests, and imaging tests to find the cause of your pain. Acute back pain usually goes away with rest and home care. Follow these instructions at home: Managing pain, stiffness, and swelling Take uxxe-eib-emdyicv and prescription medicines only as told by your health care provider. Your health care provider may recommend applying ice during the first 24 48 hours after your pain starts. To do this: ?Put ice in a plastic bag. ?Place a towel between your skin and the bag. ?Leave the ice on for 20 minutes, 2 3 times a day. If directed, apply heat to the affected area as often as told by your health care provider. Use theheat source that your health care provider recommends, such as a moist heat pack or a heating pad. ?Place a towel between your skin and the heat source. ?Leave the heat on for 20 30 minutes. ?Remove the heat if your skin turns bright red. This is especially important if you are unable to feel pain, heat, or cold. You have a greater risk of getting burned. Activity Do not stay in bed. Staying in bed for more than 1 2 days can delay your recovery. Sit up and stand up straight. Avoid leaning forward when you sit, or hunching over when you stand. ?If you work at a desk, sit close to it so you do not need to lean over. Keep your chin tucked in. Keep your neck drawn back, and keep your elbows bent at a right angle. Your arms should look like the letter L. ?Sit high and close to the steering wheel when you drive. Add lower back (lumbar) support to your car seat, if needed. Take short walks on even surfaces as soon as you are able. Try to increase the length of time you walk each day. Do not sit, drive, or rubbing bed operator one place for more than 30 minutes at a time. Sitting or standing for long periods of time can put stress on your back. Do not drive or use heavy machinery while taking prescription pain medicine. Use proper lifting techniques. When you bend and lift, use positions that put less stress on your back: ?Bend your knees. ?Keep the load close to your body. ?Avoid twisting. Exercise regularly as told by your health care provider. Exercising helps your back heal faster andhelps prevent back injuries by keeping muscles strong and flexible. Work with a physical therapist to make a safe exercise program, as recommended by your health care provider. Do any exercises as told by your physical therapist. Lifestyle Maintain a healthy weight. Extra weight puts stress on your back and makes it difficult to have good posture. Avoid activities or situations that make you feel anxious or stressed. Stress and anxiety increase muscle tension and can make back pain worse. Learn ways to manage anxiety and stress, such as through exercise. General instructions Sleep on a firm mattress in a comfortable position. Try lying on your side with your knees slightlybent. If you lie on your back, put a pillow under your knees. Follow your treatment plan as told by your health care provider. This may include: ?Cognitive or behavioral therapy. ?Acupuncture or massage therapy. ?Meditation or yoga. Contact a health care provider if: You have pain that is not relieved with rest or medicine. You have increasing pain going down into your legs or buttocks. Your pain does not improve after 2 weeks. You have pain at night. You lose weight without trying. You have a fever or chills. Get help right away if: You develop new bowel or bladder control problems. You have unusual weakness or numbness in your arms or legs. You develop nausea or vomiting. You develop abdominal pain. You feel faint. Summary Acute back pain is sudden and usually short-lived. Use proper lifting techniques. When you bend and lift, use positions that put less stress on your back. Take qmnb-rrl-rkgyiid and prescription medicines and apply heat or ice as directed by your health care provider. This information is not intended to replace advice given to you by your health care provider. Make sure you discuss any questions you have with your health care provider. Document Released: 03/05/2006 Document Revised: 06/24/2019 Document Reviewed: 10/17/2017 [employer] Patient Education 2020 Shoutlet. Follow Up Care 02/11/2022 11:42:16 With:DOMO KLINE Address: [facility] [address] [facility] [address] [place] [address]- Business (1) When:02/14/2022 12:47:50 Comments:Call the office of your primary care doctor to arrange for follow-up within the above-stated timeframe. Follow-up with your primary care doctor about this ED visit. You should review your labs, imaging, and diagnoses from this ED visit with your primary care physician. If you were prescribed medications you should discuss possible side-effects and drug interactions with your pharmacist. Call 911 or go to the nearest Emergency Department if you develop any new or worsening symptoms.Seek immediate medical attention if you develop: increasing pain, numbness, tingling, weakness, loss of motion inyour arms or legs, loss of control of your urine or stool, fever, abdominal pain, chest pain, shortness of breath, or any new or worsening symptoms. [facility]11-26-2022 Evaluation + Plan noteExtracted from: Title:ED Note Author:Jeff Maya DO Date:04/13/21 Musculoskeletal back pain (M 54.9: Dorsalgia, unspecified) Orders: cyclobenzaprine, 10 mg = 1 tab(s), Oral, TID, PRN Muscle pain, X 5 day(s), # 15 tab(s), Refills(s) 0, Pharmacy: [facility], 173, cm, 02/11/22 12:01:00 EST, Height/Length Dosing, 105, kg, 02/11/22 12:01:00 EST, Weight Dosing ketorolac, 30 mg = 1 mL, Injection, IntraMuscular, Once, Stop date 02/11/22 12:43:00 EST, STAT, Start date 02/11/22 12:43:00 EST, 02/11/22 12:43:00 EST lidocaine topical, 1 patch(es), Topical, Daily Muscle pain, 7 EA, Refill(s) 0, apply 12 hours on and 12 hours off daily, [facility], 173, cm, 02/11/22 12:01:00 EST, Height/Length Dosing, 105, kg, 02/11/22 12:01:00 EST, Weight Dosing lidocaine topical, 1 patch(es), Patch, TransDermal, Once, Stop date 02/11/22 12:43:00 EST, STAT, Start date 02/11/22 12:43:00 EST naproxen, 500 mg = 1 tab(s), Oral, BID, PRN for pain, # 20 tab(s), Refills(s) 0, Pharmacy: [facility], 173, cm, 02/11/22 12:01:00 EST, Height/Length Dosing, 105, kg, 02/11/22 12:01:00 EST, Weight Dosing U Beta Hcg Qual UA With Cult Reflex Future Appointments Appointment Date:05/09/2022 01:00:00 PM Scheduled Provider:FLORES WHYTE PA-C Location:[facility] Appointment Type:URO Office Visit Appointment Date:01/01/2023 01:15:00 PM Scheduled Provider:Antonio ROSE MD Location:[facility] Appointment Type:URO Office Visit [facility]11-04-2022 Evaluation + Plan noteExtracted from: Title:ED Note Author:Trent Becker PA-C te:01/20/22 Viral URI (J06.9: Acute uppe r respiratory infection, unspecified) Orders: brompheniramine/dextromethorphan/PSE, 5 mL, Oral, QID for cold symptoms, 200 mL, Refill(s) 0, [facility], 174, cm, 01/20/22 9:44:00 EDT, Height/Length Dosing, 94, kg, 01/20/22 9:44:00 EDT, Weight Dosing Influenza A&B Ag Rapid COVID Antigen ([facility] Future Appointments Appointment Date:01/01/2023 01:15:00 PM Scheduled Provider:Antonio ROSE MD Location:[facility] Appointment Type:URO Office Visit [facility]11-04-2022 Hospital Discharge instructions Patient Education 01/20/2022 10:51:02 Upper Respiratory Infection, Adult, Xeav-mj-Iwlp Upper Respiratory Infection, Adult An upper respiratory infection (URI) affects the nose, throat, and upper air passages. URIs are caused by germs (viruses). The most common type of URI is often called the common cold. Medicines cannot cure URIs, but you can do things at home to relieve your symptoms. URIs usually get better within 7 10 days. Follow these instructions at home: Activity Rest as needed. If you have a fever, stay home from work or school until your fever is gone, or until your doctor says you may return to work or school. ?You should stay home until you cannot spread the infection anymore (you are not contagious). ?Your doctor may have you wear a face mask so you have less risk of spreading the infection. Relieving symptoms Gargle with a salt-water mixture 3 4 times a day or as needed. To make a salt- water mixture, completely dissolve 1 tsp of salt in 1 cup of warm water. Use a cool-mist humidifier to add moisture to the air. This can help you breathe more easily. Eating and drinking Drink enough fluid to keep your pee (urine) pale yellow. Eat soups and other clear broths. General instructions Take lpqg-zlo-uladjmk and prescription medicines only as told by your doctor. These include cold medicines, fever reducers, and cough suppressants. Do not use any products that contain nicotine or tobacco. These include cigarettes and e-cigarettes. If you need help quitting, ask your doctor. Avoid being where people are smoking (avoid secondhand smoke). Make sure you get regular shots and get the flu shot every year. Keep all follow-up visits as told by your doctor. This is important. How to avoid spreading infection to others Wash your hands often with soap and water. If you do not have soap and water, use hand fixed wing aircraft flight engineer. Avoid touching your mouth, face, eyes, or nose. Cough or sneeze into a tissue or your sleeve or elbow. Do not cough or sneeze into your hand or into the air. Contact a doctor if: You are getting worse, not better. You have any of these: ?A fever. ?Chills. ?Brown or red mucus in your nose. ?Yellow or brown fluid (discharge)coming from your nose. ?Pain in your face, especially when you bend forward. ?Swollen neck glands. ?Pain with swallowing. ?White areas in the back of your throat. Get help right away if: You have shortness of breath that gets worse. You have very bad or constant: ?Headache. ?Ear pain. ?Pain in your forehead, behind your eyes, and over your cheekbones (sinus pain). ?Chest pain. You have long-lasting (chronic) lung disease along with any of these: ?Wheezing. ?Long-lasting cough. ?Coughing up blood. ?A change in your usual mucus. You have a stiff neck. You have changes in your: ?Vision. ?Hearing. ?Thinking. ?Mood. Summary An upper respiratory infection (URI) is caused by a germ called a virus. The most common type of URI is often called the common cold. URIs usually get better within 7 10 days. Take vkrg-kfg-dyqxokw and prescription medicines only as told by your doctor. This information is not intended to replace advice given to you by your health care provider. Make sure you discuss any questions you have with your health care provider. Document Released: 08/21/2008 Document Revised: 03/13/2019 Document Reviewed: 10/26/2017 [employer] Patient Education 2020 Shoutlet. 01/20/2022 10:51:02 Cough, Adult Cough, Adult Coughing is a reflex that clears your throat and your airways (respiratory system). Coughing helps to heal and protect your lungs. It is normal to cough occasionally, but a cough that happens with other symptoms or lasts a long time may be a sign of a condition that needs treatment. An acute cough may only last 2 3 weeks, while a chronic cough may last 8 or more weeks. Coughing is commonly caused by: Infection of the respiratory systemby viruses or bacteria. Breathing in substances that irritate your lungs. Allergies. Asthma. Mucus that runs down the back of your throat (postnasal drip). Smoking. Acid backing up from the stomach into the esophagus (gastroesophageal reflux). Certain medicines. Chronic lung problems. Other medical conditions such as heart failure or a blood clot in the lung (pulmonary embolism). Follow these instructions at home: Medicines Take qnzd-itk-kgjhgfv and prescription medicines only as told by your health care provider. Talk with your health care provider before you take a cough suppressant medicine. Lifestyle Avoid cigarette smoke. Do not use any products that contain nicotine or tobacco, such as cigarettes, e-cigarettes, and chewing tobacco. If you need help quitting, ask your health care provider. Drink enough fluid to keep your urine pale yellow. Avoid caffeine. Do not drink alcohol if your health care provider tells you not to drink. General instructions Pay close attention to changes in your cough. Tell your health care provider about them. Always cover your mouth when you cough. Avoid things that make you cough, such as perfume, candles, cleaning products, or campfire or tobacco smoke. If the air is dry, use a cool mist vaporizer or humidifier in your bedroom or your home to help loosen secretions. If your cough is worse at night, try to sleep in a semi-upright position. Rest as needed. Keep all follow-up visits as told by your health care provider. This is important. Contact a health care provider if you: Have new symptoms. Cough up pus. Have a cough that does not get better after 2 3 weeks or gets worse. Cannot control your cough with cough suppressant medicines and you are losing sleep. Have pain that gets worse or pain that is not helped with medicine. Have a fever. Have unexplained weight loss. Have night sweats. Get help right away if: You cough up blood. You have difficulty breathing. Your heartbeat is very fast. These symptoms may represent a serious problem that is an emergency. Do not wait to see if the symptoms will go away. Get medical help right away. Call your local emergency services (911 in the [place] Do not drive yourself to the hospital. Summary Coughing is a reflex that clears your throat and your airways. It is normal to cough occasionally, but a cough that happens with other symptoms or lasts a long time may be a sign of a condition that needs treatment. Take wlaz-fbe-mvkjlpw and prescription medicines only as told by your health care provider. Always cover your mouth when you cough. Contact a health care provider if you have new symptoms or a cough that does not get better after 23 weeks or gets worse. This information is not intended to replace advice given to you by your health care provider. Make sure you discuss any questions you have with your health care provider. Document Released: 09/01/2011 Document Revised: 03/24/2019 Document Reviewed: 03/24/2019 [employer] Patient Education 2020 [employer] Follow Up Care 01/20/2022 09:28:29 With:DOMO KLINE Address: [address] [place] [address] [place] [id number] [facility] (1) When:01/23/2022 10:47:15 Comments:Follow-up with your primary care provider in 3 to 5 days. If symptoms worsen, do not improve, or new symptoms arise please report back to emergency department for further evaluation. [facility]10-10-2022 Hospital Discharge instructions Patient Education 12/26/2021 16:22:27 Kidney Stones, Nvji-op-Uhlw Kidney Stones Kidney stones are rock-like masses that form inside of the kidneys. Kidneys are organs that make pee (urine). A kidney stone may move into other parts of the urinary tract, including: The tubes that connect the kidneys to the bladder (ureters). The bladder. The tube that carries urine out of the body (urethra). Kidney stones can cause very bad pain and can block the flow of pee. The stone usually leaves your body (passes) through your pee. You may need to have a doctor take out the stone. What are the causes? Kidney stones may be caused by: A condition in which certain glands make too much parathyroid hormone (primary hyperparathyroidism). A buildup of a type of crystals in the bladder made of a chemical called uric acid. The body makes uric acid when you eat certain foods. Narrowing (stricture) of one or both of the ureters. A kidney blockage that you were born with. Past surgery on the kidney or the ureters, such as gastric bypass surgery. What increases the risk? You are more likely to develop this condition if: You have had a kidney stone in the past. You have a family history of kidney stones. You do not drink enough water. You eat a diet that is high in protein, salt (sodium), or sugar. You are overweight or very overweight (obese). What are the signs or symptoms? Symptoms of a kidney stone may include: Pain in the side of the belly, right below the ribs (flank pain). Pain usually spreads (radiates) to the groin. Needing to pee often or right away (urgently). Pain when going pee (urinating). Blood in your pee (hematuria). Feeling like you may vomit (nauseous). Vomiting. Fever and chills. How is this treated? Treatment depends on the size, location, and makeup of the kidney stones. The stones will often pass out of the body through peeing. You may need to: Drink more fluid to help pass the stone. In some cases, you may be given fluids through an IV tube put into one of your veins at the hospital. Take medicine for pain. Make changes in your diet to help keep kidney stones from coming back. Sometimes, medical procedures are needed to remove a kidney stone. This may involve: A procedure to break up kidney stones using a beam of light (laser) or shock waves. Surgery to remove the kidney stones. Follow these instructions at home: Medicines Take vfqs-jdr-xrubwxu and prescription medicines only as told by your doctor. Ask your doctor if the medicine prescribed to you requires you to avoid driving or using heavy machinery. Eating and drinking Drink enough fluid to keep your pee pale yellow. You may be told to drink at least 8 10 glasses of water each day. This will help you pass the stone. If told by your doctor, change your diet. This may include: ?Limiting how much salt you eat. ?Eating more fruits and vegetables. ?Limiting how much meat, poultry, fish, and eggs you eat. Follow instructions from your doctor about eating or drinking restrictions. General instructions Collect pee samples as told by your doctor. You may need to collect a pee sample: ?24 hours after a stone comes out. ?8 12 weeks after a stone comes out, and every 6 12 months after that. Strain your pee every time you pee (urinate), for as long as told. Use the strainer that your doctor recommends. Do not throw out the stone. Keep it so that it can be tested by your doctor. Keep all follow-up visits as told by your doctor. This is important. You may need follow-up tests. How is this prevented? To prevent another kidney stone: Drink enough fluid to keep your pee pale yellow. This is the best way to prevent kidney stones. Eat healthy foods. Avoid certain foods as told by your doctor. You may be told to eat less protein. Stay at a healthy weight. Where to find more information National Kidney Foundation (NKF): www.kidney.org [facility] (UCF): www.urologyhealth.org Contact a doctor if: You have pain that gets worse or does not get better with medicine. Get help right away if: You have a fever or chills. You get very bad pain. You get new pain in your belly (abdomen). You pass out (faint). You cannot pee. Summary Kidney stones are rock-like masses that form inside of the kidneys. Kidney stones can cause very bad pain and can block the flow of pee. The stones will often pass out of the body through peeing. Drink enough fluid to keep your pee pale yellow. This information is not intended to replace advice given to you by your health care provider. Make sure you discuss any questions you have with your health care provider. Document Released: 08/21/2008 Document Revised: 07/22/2019 Document Reviewed: 07/22/2019 [employer] Patient Education 2019 Shoutlet. Follow Up Care 10/20/2021 11:32:55 With:ROSE GIMENEZ, Antonio Parikh, URL Address: [facility] [address] , [place] [address]- [phone] When:12/26/2022 Comments:FEMI [facility] 08-01-2022 Evaluation + Plan note Diagnostic Tests Pending * HCV RT-PCR, Quant (Non-Graph) 10/17/21 [facility]07-02-2022 Hospital Discharge instructions Patient Education 09/17/2021 02:38:41 Flank Pain, Adult Flank Pain, Adult Flank pain is pain that is located on the side of the body between the upper abdomen and the back. This area is called the flank. The pain may occur over a short period of time (acute), or it may be long-term or recurring (chronic). It may be mild or severe. Flank pain can be caused by many things,including: Muscle soreness or injury. Kidney stones or kidney disease. Stress. A disease of the spine (vertebral disk disease). A lung infection (pneumonia). Fluid around the lungs (pulmonary edema). A skin rash caused by the chickenpox virus (shingles). Tumors that affect the back of the abdomen. Gallbladder disease. Follow these instructions at home: Drink enough fluid to keep your urine clear or pale yellow. Rest as told by your health care provider. Take cysg-hgq-qnuhekc and prescription medicines only as told by your health care provider. Keep a journal to track what has caused your flank pain and what has made it feel better. Keep all follow-up visits as told by your health care provider. This is important. Contact a health care provider if: Your pain is not controlled with medicine. You have new symptoms. Your pain gets worse. You have a fever. Your symptoms last longer than 2 3 days. You have trouble urinating or you are urinating very frequently. Get help right away if: You have trouble breathing or you are short of breath. Your abdomen hurts or it is swollen or red. You have nausea or vomiting. You feel faint or you pass out. You have blood in your urine. Summary Flank pain is pain that is located on the side of the body between the upper abdomen and the back. The pain may occur over a short period of time (acute), or it may be long-term or recurring (chronic). It may be mild or severe. Flank pain can be caused by many things. Contact your health care provider if your symptoms get worse or they last longer than 2 3 days. This information is not intended to replace advice given to you by your health care provider. Make sure you discuss any questions you have with your health care provider. Document Released: 04/26/2006 Document Revised: 02/15/2018 Document Reviewed: 05/18/2017 [employer] Patient Education 2020 Shoutlet. Follow Up Care 09/16/2021 22:50:01 With:Gracia Murillo Address: [address] [place] [address] [address] , [address] [address]- Business (1) When:Within 3 Day(s) [facility]07-01-2022 Evaluation + Plan noteExtracted from: Title:ED Note Author:Kendrick Valenzuela DO Date :09/16/21 Flank pain (R10.9: Unspecifi ed abdominal pain) Orders: ketorolac, 15 mg = 1 mL, Injection, IV Push, Once, Stop date 09/17/21 0:28:00 EDT, STAT, Start date 09/17/21 0:28:00 EDT, 09/17/21 0:28:00 EDT Sodium Chloride 0.9% intravenous solution, 1,000 mL, Soln-IV, IV, Once, Stop date 09/16/21 22:53:00 EDT, STAT, Start date 09/16/21 22:53:00 EDT, mL/hr, Infuse over 61, minute(s) Sodium Chloride 0.9% intravenous solution, Soln-IV, Misc, Once, Stop date 09/16/21 22:53:56 EDT, Physician Stop, 09/16/21 22:53:56 EDT Automated Diff Basic Metabolic Panel CBC w/ Auto Diff CT Abdomen/Pelvis w/o Contrast eGFR Hepatic Function Panel Lipase Level U Beta Hcg Qual UA With Cult Reflex [facility]06-09-2022 Hospital Discharge instructions Patient Education 08/25/2021 20:53:05 Viral Gastroenteritis, Adult Viral Gastroenteritis, Adult Viral gastroenteritis is also known as the stomach flu. This condition may affect your stomach, small intestine, and large intestine. It can cause sudden watery diarrhea, fever, and vomiting. This condition is caused by many different viruses. These viruses can be passed from person to person very easily (are contagious). Diarrhea and vomiting can make you feel weak and cause you to become dehydrated. You may not be able to keep fluids down. Dehydration can make you tired and thirsty, cause you to have a dry mouth, and decrease how often you urinate. It is important to replace the fluids that you lose from diarrhea and vomiting. What are the causes? Gastroenteritis is caused by many viruses, including rotavirus and norovirus. Norovirus is the mostcommon cause in adults. You can get sick after being exposed to the viruses from other people. You can also get sick by: Eating food, drinking water, or touching a surface contaminated with one of these viruses. Sharing utensils or other personal items with an infected person. What increases the risk? You are more likely to develop this condition if you: Have a weak body defense system (immune system). Live with one or more children who are younger than 2 years old. Live in a correction. Travel on cruise ships. What are the signs or symptoms? Symptoms of this condition start suddenly 1 3 days after exposure to a virus. Symptoms may last fora few days or for as long as a week. Common symptoms include watery diarrhea and vomiting. Other symptoms include: Fever. Headache. Fatigue. Pain in the abdomen. Chills. Weakness. Nausea. Muscle aches. Loss of appetite. How is this diagnosed? This condition is diagnosed with a medical history and physical exam. You may also have a stool test to check for viruses or other infections. How is this treated? This condition typically goes away on its own. The focus of treatment is to prevent dehydration andrestore lost fluids (rehydration). This condition may be treated with: An oral rehydration solution (ORS) to replace important salts and minerals (electrolytes) in your body. Take this if told by your health care provider. This is a drink that is sold at pharmacies and retail stores. Medicines to help with your symptoms. Probiotic supplements to reduce symptoms of diarrhea. Fluids given through an IV, if dehydration is severe. Older adults and people with other diseases or a weak immune system are at higher risk for dehydration. Follow these instructions at home: Eating and drinking Take an ORS as told by your health care provider. Drink clear fluids in small amounts as you are able. Clear fluids include: ?Water. ?Ice chips. ?Diluted fruit juice. ?Low-calorie sports drinks. Drink enough fluid to keep your urine pale yellow. Eat small amounts of healthy foods every 3 4 hours as you are able. This may include whole grains, fruits, vegetables, lean meats, and yogurt. Avoid fluids that contain a lot of sugar or caffeine, such as energy drinks, sports drinks, and soda. Avoid spicy or fatty foods. Avoid alcohol. General instructions Wash your hands often, especially after having diarrhea or vomiting. If soap and water are not available, use hand fixed wing aircraft flight engineer. Make sure that all people in your household wash their hands well and often. Take iguv-lei-dfgmdwm and prescription medicines only as told by your health care provider. Rest at home while you recover. Watch your condition for any changes. Take a warm bath to relieve any burning or pain from frequent diarrhea episodes. Keep all follow-up visits as told by your health care provider. This is important. Contact a health care provider if you: Cannot keep fluids down. Have symptoms that get worse. Have new symptoms. Feel light-headed or dizzy. Have muscle cramps. Get help right away if you: Have chest pain. Feel extremely weak or you faint. See blood in your vomit. Have vomit that looks like coffee grounds. Have bloody or black stools or stools that look like tar. Have a severe headache, a stiff neck, or both. Have a rash. Have severe pain, cramping, or bloating in your abdomen. Have trouble breathing or you are breathing very quickly. Have a fast heartbeat. Have skin that feels cold and clammy. Feel confused. Have pain when you urinate. Have signs of dehydration, such as: ?Dark urine, very little urine, or no urine. ?Cracked lips. ?Dry mouth. ?Sunken eyes. ?Sleepiness. ?Weakness. Summary Viral gastroenteritis is also known as the stomach flu. It can cause sudden watery diarrhea, fever,and vomiting. This condition can be passed from person to person very easily (is contagious). Take an ORS if told by your health care provider. This is a drink that is sold at pharmacies and retail stores. Wash your hands often, especially after having diarrhea or vomiting. If soap and water are not available, use hand fixed wing aircraft flight engineer. This information is not intended to replace advice given to you by your health care provider. Make sure you discuss any questions you have with your health care provider. Document Released: 03/05/2006 Document Revised: 08/22/2019 Document Reviewed: 01/08/2019 [employer] Patient Education 2020 [employer]. Follow Up Care 08/25/2021 20:22:07 With:Lilian Vargas Address: [address], [facility] [address] [place] [address] [facility] (1) When:08/28/2021 20:52:48 Comments:Call the office of your primary care doctor to arrange for follow-up within the above-stated timeframe. Follow-up with your primary care doctor about this ED visit. You should review your labs, imaging, and diagnoses from this ED visit with your primary care physician. If you were prescribed medications you should discuss possible side-effects and drug interactions with your pharmacist. Call 911 or go to the nearest Emergency Department if you develop any new or worsening symptoms.Seek immediate medical attention if you develop:worsening abdominal pain, new or worsening nausea, new or worsening vomiting, new or worsening diarrhea, chest pain, shortness of breath, pain with urination, problems urinating, fever, chills, weakness, or any new or worsening symptoms. [facility]06-09-2022 Evaluation + Plan noteExtracted from: Title:ED Note Author:Jeff Maya DO Date: Acute gastroenteritis (K52.9 : Noninfective gastroenteritis and colitis, unspecified) Orders: dicyclomine, 10 mg = 1 cap(s), Oral, QID, PRN Other (see comment), Abdominal pain/ cramping, # 8 cap(s), Refills(s) 0 dicyclomine, 10 mg = 1 cap(s), Cap, Oral, Once, Stop date 08/25/21 20:49:00 EDT, STAT, Start date 08/25/21 20:49:00 EDT, 08/25/21 20:49:00 EDT ondansetron, 4 mg = 1 tab(s), Oral, q8hr, PRN Nausea/Vomiting, # 12 tab(s), Refills(s) 0 ondansetron, 4 mg = 1 tab(s), Tab-Dis, Oral, Once, Stop date 08/25/21 20:49:00 EDT, STAT, Start date 08/25/21 20:49:00 EDT, 08/25/21 20:49:00 EDT [facility]04-11-2022 Evaluation + Plan note Diagnostic Tests Pending * HCV RT-PCR, Quant (Non-Graph) 06/27/21 [facility]02-16-2022 Evaluation note* Encounter Date Diagnosis Assessment Notes Treatment Notes Treatment Clinical Notes Apr, Hepatitis C (ICD-10 - B19.20) THIS PATIENT IS A GOOD CANDIDATE FOR THERAPY WITH MAVYRET SHE IS MOTIVATED AND AGREES TO PROCEED WITH THERAPY THE PATIENT READINESS CONSENT WAS DISCUSSED AND SIGNED BY PATIENT AND PHYSICIAN SHE DOES NOT HAVE ANY LIMITED LIFE EXPECTACNCY DUE TO NON LIVER COMORBITIES AND AGREES TO RNA TESTING Q 4 WEEKS WHILE ON THERAPY Submit for Mavyret x 8 weeks Check Hep C PCR 4 weeks into treatment and 12 weeks after finishing treatment. [employer] Other 01-05-2022 Evaluation note* Encounter Date Diagnosis Assessment Notes Treatment Notes Treatment Clinical Notes Mar, Hepatitis C (ICD-10 - B19.20) PATIENT DID HAVE BLOOD TRANSFUSION AFTER 1992 HAS KNOWN ABOUT THIS FOR 4 YEARS WILL ORDER LABS AND IMAGING. THIS PATIENT IS A GOOD CANDIDATE FOR THERAPY HE / SHE IS MOTIVATED AND AGREES TO PROCEED WITH THERAPY THE PATIENT READINESS CONSENT WAS DISCUSSED AND SIGNED BY PATIENT AND PHYSICIAN HE / SHE DOES NOT HAVE ANY LIMITED LIFE EXPECTACNCY DUE TO NON LIVER COMORBITIES AND AGREES TO RNA TESTING Q 4 WEEKS WHILE ON THERAPY [employer] Other Evaluation + Plan note Future Appointments Appointment Date:01/01/2023 01:15:00 PM Scheduled Provider:Antonio ROSE MD Location:[facility] Appointment Type:URO Office Visit [facility] History general Narrative - Reported* Type Description Date Surgical History C section [employer] Other Hospital course Narrative No data available for this section [facility] No data available for this section [facility] No data available for this section [facility]Reason for visit NarrativePATIENT HERE AT THE REQUEST OF DR JOSHI FOR EVALUATION & TREATMENT OF HEPATITIS C.- PATIENT STATES WAS DORMENT FOR 3 YEARS AND WHEN SHE WAS THIS FLARED UP. PATIENT HAS NOT HAD ANY RECENT LABS OR IMAGING., 03/[address] [facility]ICE [facility] Other Summary Purpose Family History No Family History Records FoundNo Family History Records FoundNo Family History Records FoundNo Family History Records Found No data available for this section No data available for this section No Family History Records Found No data available for this section No Family History Records Found Advance Directives No Advanced Directives Records FoundNo Advanced Directives Records FoundNo Advanced Directives Records FoundNo Advanced Directives Records FoundNo Advanced Directives Records FoundNo Advanced Directives Records Found Additional Source Comments INFORMATION SOURCE (unrecogn ized section and content) DATE CREATED AUTHOR 09/05/2017 [facility] DATE CREATED AUTHOR AUTHOR'S ORGANIZ ATION 09/20/2017 [employer] [facility] DATE CREATED AUTHOR AUTHOR'S ORGANIZ ATION 05/02/2021 [facility] DATE CREATED AUTHOR AUTHOR'S ORGANIZ ATION 07/28/2022 [facility] DATE CREATED AUTHOR AUTHOR'S ORGANIZ ATION 02/06/2023 [facility] [employer] [employer] EP[employer] DATE CREATED AUTHOR AUTHOR'S ORGANIZ ATION 02/24/2023 [facility] REASON FOR VISIT (unrecogniz ed section and content) PATIENT HERE FOR FOLLOW UP L ABS AND FIBROSCAN DONE FOR HEPATITIS C. Care Team (unrecognized sect ion and content) Personnel Name: Gracia Murillo DO Chaz Address: [address] [place] [address] Marc, [facility] C, [address] Personnel Name: NONE, XXXX Address: [facility] Personnel Name: NONE, XXXX Address: Address: [facility] Personnel Name: ELIUD DO DOMO M Address: Address: [address] [place], [place] [address] Personnel Name: ELIUD GRANADOS DOMO M Address: Address: [facility] [address] Personnel Name: ELIUD GRANADOS DOMO M Address: Address: [address] [place] [address] Personnel Name: ELIUD GRANADOS DOMO M Address: Address: [facility] [address] Personnel Name: ELIUD GRANADOS DOMO M Address: Address: [address] [place] [id number] Personnel Name: ELIUD GRANADOS DOMO M Address: Address: [facility] [address] Personnel Name: ELIUD GRANADOS DOMO M Address: Address: [address] [place] [address] Personnel Name: ELIUD GRANADOS DOMO M Address: Address: [facility] [address] FOR RECORDS PERTAINING TO PATIENTS WHO ARE OR HAVE BEEN ENROLLED IN A CHEMICAL DEPENDENCY/SUBSTANCEABUSE PROGRAM, SOME INFORMATION MAY BE OMITTED. This clinical summary was aggregated from multiple sources. Caution should be exercised in using it in the provision of clinical care. This summary normalizes information from multiple sources, and as a consequence, information in this document may materially change the coding, format and clinical context of patient data. In addition, data may be omitted in some cases. CLINICAL DECISIONS SHOULD BE BASED ON THE PRIMARY CLINICAL RECORDS. [facility] [employer] [facility]. provides no warranty or guarantee of the accuracy or completeness of information in this document.
--- NOTE | 2023-03-15 06:45 | XR_ITS ---
The [address] [address] Patient Name: TERRENCE BORGES MRN: [id number] date: 1985 Sex: F Assigned Patient Location: [facility] Current Patient Location: [facility] Accession/Order Number: [id number] Exam Date: 03/15/2023 06:48 Report Date: 03/15/2023 07:53 At the request of: ANTONIO ROES Procedure: XR abdomen 1V EXAMINATION: XR abdomen 1V HISTORY: kidney stones COMPARISON: XR abdomen 01/19/2023 FINDINGS: KIDNEY/URETER - RIGHT: No visible renal or ureteral calcifications. KIDNEY/URETER - LEFT: 2 tiny stones project over superior pole of kidney. PELVIS: No visible ureteral stones. BOWEL: No abnormal dilation or deviation. BONES: No acute abnormality. OTHER: Negative. No abnormal gaseous collections. XR/XR abdomen 1V IMPRESSION: 1. Stable left nephrolithiasis. 2. No additional visible urinary tract calculi. Evaluation is limited by dense bowel content overlying the kidneys. Electronically authenticated by: PHILLIP GUAN Date: 03/15/2023 07:53
[2023-03-15 06:57] LABS: HCG Qualitative NEGATIVE (NEGATIVE)
[2023-03-15] MEDS: LACTATED RINGER'S SOLUTION 1,000 ML 50 ML IV (07:20)
[2023-03-15] MEDS: CIPROFLOXACIN IN 5 % DEXTROSE 400 MG/200 ML PIGGYBACK 200 MG IV (07:58)
--- NOTE | 2023-03-15 08:41 | PM.URSON ---
Urology Surgery Operative Note Operative Note Procedure Date: 03/15/23 Time Out Performed: yes Pre-op Diagnosis: Left nephrolithiasis Post-op Diagnosis: same as pre-op Procedures performed: 1. Left ESWL. Anesthesia: General-LMA Primary Surgeon: Derrick Murphy Complications: None Estimated blood loss (mL): 0 Findings: For pole nephrolithiasis Specimens: None Indications for Procedures: This lady has a nonobstructing left renal calculi. The largest is measured at 7 mm. A couple adjacent tiny ones are also noted. She now presents for left ESWL and possible cystoscopy and left stent placement. She has signed an informed consent for these procedures after all risks were explained. Some of them include bleeding, perinephric hematoma, infection and anesthesia to name a few. Detailed description of Procedure: The patient was brought to the Operating Room and placed on Siemens electromagnetic lithotripsy treatment table in the supine position. SCDs were placed on their lower extremities and turned on and functioning during the entire case. Timeout was done by all parties in the room. We all agreed upon the patient's identification and the planned procedures for this patient. General Anesthesia was then administered via LMA. Treatment head was then brought to the patient's correct side. While using flourscopy the largest stone was identified and lined up into the crosshairs. We then began applying shocks. We started at power level 2.0 and increased to a maximum power level of 3.2. Intermittent fluoroscopy showed that the stone steadily fragmented. We applied a total of 2500 shocks to this larger stone. We then moved to the only visible smaller stone just adjacent to it. We applied 500 shocks to the stone and had satisfactory fragmentation. The procedure was then terminated. She was then transferred to a [facility] bed and wheeled to PACU in stable condition.
--- NOTE | 2023-03-15 09:07 | PC.NURSE ---
PINK AREA LEFT FLANK; NO OPEN AREAS
--- NOTE | 2023-03-15 09:24 | PC.NURSE ---
75 ml blood tinged urine no clots, no stones
== END 2023-03-15 09:43 | disposition home or self-care (01) ==
PROVIDERS: PCP Student in an Organized Health Care Education/Training Program; Visit Provider Urology
PROC: (CPT 873; principal; 2023-03-15 08:00)
DX: N20.0 Calculus of kidney (principal); Z87.440 Personal history of urinary (tract) infections; F43.10 Post-traumatic stress disorder, unspecified; F32.A Depression, unspecified; F41.9 Anxiety disorder, unspecified; Z86.16 Personal history of COVID-19; N39.3 Stress incontinence (female) (male); N28.89 Other specified disorders of kidney and ureter; N35.82 Other urethral stricture, female; R35.1 Nocturia; Z87.442 Personal history of urinary calculi; F17.210 Nicotine dependence, cigarettes, uncomplicated
CPT/HCPCS: 50590; 36415; 74018; 84703; J2704

== ENCOUNTER 2023-10-25 12:53 | Outpatient (OUT) | payer OTHER, SELFPAY ==
--- NOTE | 2023-10-25 12:55 | MR_ITS ---
The [address] [address] Patient Name: TERRENCE BORGES MRN: [facility]:[id number] date: 1985 Sex: F Assigned Patient Location: MRI Current Patient Location: MRI Accession/Order Number: [id number] Exam Date: 10/25/2023 13:05 Report Date: 10/25/2023 14:25 At the request of: RYAN MCKEON Procedure: MR head/brain wo con EXAM: MR head/brain wo con HISTORY: Blurring Of Visual Images H53.8 COMPARISON: None. TECHNIQUE: MRI of the brain was performed without contrast. FINDINGS: Exam is distorted secondary to patient's nonremovable face jewelry. Findings are made within these confines. There is no restricted diffusion to suggest acute infarct. There is no midline shift, mass effect, or abnormal extraaxial fluid collections. The cortical sulci and ventricular system are within normal limits. The major intracranial flow voids are visualized. The cerebellar tonsils are normal in position. The orbits are unremarkable. The paranasal sinuses show no air-fluid level. The mastoid air cells are clear. The calvarium and extracranial soft tissues are unremarkable. MR/MR head/brain wo con IMPRESSION: Normal brain MRI performed without contrast. Electronically authenticated by: DERIK ROSARIO Date: 10/25/2023 14:25
== END 2023-10-25 12:54 | disposition home or self-care (01) ==
LOC: MRI 12:53
PROVIDERS: PCP Student in an Organized Health Care Education/Training Program; Visit Provider Nurse Practitioner Gerontology
DX: H53.8 Other visual disturbances (principal)
CPT/HCPCS: 70551

== ENCOUNTER 2023-11-13 18:48 | Outpatient (REF) | payer OTHER, SELFPAY ==
--- OUTSIDE RECORDS SUMMARY | 2023-11-13 19:04 | XMS_ITS | CCD ---
Author Organization [facility] Care Team Providers Care Textile Screen Maker Name Role Phone CHELSEA TEJADA Unavailable Unavailable CHELSEA TEJADA Unavailable Unavailable KAUSHAL KASPER Unavailable Unavailable KAUSHAL KASPER Unavailable Unavailable KAUSHAL KASPER Unavailable Unavailable KAUSHAL KASPER Unavailable Unavailable KAUSHAL KASPER Unavailable Unavailable KAUSHAL KASPER Unavailable Unavailable NONE, XXXX Primary Care Physician Unavailab Wero Howard Unavailable Gracia Murillo Primary Care Physician DOMO REIS Primary Care Physician [phone] EASLEY Attending Unavailabl e KARESMEK ., DR EASLEY Consulting Unavailabl e KARASIK ., DR EASLEY Admitting Unavailabl e [facility] Primary Care Unavailable Phillip Guan Consulting Unavailable ROSE ., DR ALVAREZ Admitting Unavailable ROSE ., DR ALVAREZ Attending Unavailable ROSE ., DR ALVAREZ Consulting Unavailable [facility] Unavailable Phillip Guan Consulting Unavailable FLORES CAMPBELL Admitting Unavailable FLORES CAMPBELL Attending Unavailable FLORES CAMPBELL Consulting Unavailable [facility] Primary Care Unavailable [facility] Primary Care Unavailable KARASIK ., DR EASLEY Attending Unavailabl e KARASIK ., DR EASLEY Consulting Unavailabl e KARESMEK ., DR EASLEY Admitting Unavailabl e KARESMEK ., DR EASLEY Attending Unavailabl e KARASIK ., DR EASLEY Consulting Unavailabl e KARASIK ., DR EASLEY Admitting Unavailabl e [facility] Primary Care Unavailable KARASIK ., DR EASLEY Admitting Unavailabl e KARESMEK ., DR EASLEY Attending Unavailabl e KARASIK ., DR EASLEY Consulting Unavailabl e [facility] Primary Care Unavailable ROSE ., DR ALVAREZ Attending Unavailable ROSE ., DR ALVAREZ Consulting Unavailable ROSE ., DR ALVAREZ Admitting Unavailable MADELYN KEVIN KRISTI Primary Care Unavailable Leigh Aguilar Consulting Unavailable Smiley GIMENEZ, Sybil Mendoza Primary Care Provider Sybil Reis Primary Care Physician [phone] Yung Morataya Admitting Unavailable [place], Yung Ware Attending Unavailable Yung Morataya Referring Unavailable Matthew Robles Admitting Unavailable Robles, Matthew Abdul Attending Unavailable ROSE, Antonio Parikh Admitting Unavailable ROSE, Antonio Parikh Attending Unavailable Sebastian, Lance Attending Unavailable ROSE, Antonio Parikh Admitting Unavailable ROSE, Antonio Parikh Attending Unavailable ROSE, Antonio Parikh Referring Unavailable Robles, Matthew Abdul Attending Unavailable ROSE, Antonio Parikh Attending Unavailable ROSE, Antonio Parikh Attending Unavailable ISABELL, FLORES Gonzalez Attending Unavailable ISABELL, FLORES Gonzalez Attending Unavailable Smiley, Sybil Mendoza Admitting Unavailable Smiley, Sybil Mendoza Attending Unavailable Smiley, Sybil Mendoza Referring Unavailable Sebastian, Lance Attending Unavailable ISABELL, BREN Gonzalez Attending Unavailab le SMILEY, SYBIL Mendoza Attending Unavailable SMILEY, SYBIL Mendoza Attending Unavailable HIMA GANDHI Attending Unavailable SMILEY, SYBIL Mendoza Attending Unavailable HILLS, YUNG Ware Attending Unavailable SMILEY, SYBIL Mendoza Referring Unavailable HILLS, YUNG Ware Referring Unavailable SMILEY, SYBIL Mendoza Attending Unavailable GRAZIANRYAN De Leon Attending Unavailab le SIMLEY, SYBIL Mendoza Referring Unavailable SMILEY, SYBIL Mendoza Attending Unavailable MAKENZIE MALONE Attending Unavailable GRAZIANI, RYAN Mendoza Attending Unavailab le Allergies Allergy Classification Reported Allergen(s) Allergy Type Date of Onset Reaction(s) Facility Cephalosporins (antibiotic) (2 sources) Cephalexin; Translations: [cephalexin] Drug Allergy Weal (disorder) [facility] (20 sources) Cephalexin; Translations: [cephalexin] Drug Allergy 3 Unknown (qualifier value), Weal (disorder), Rash [facility] (1 source) Cephalexin Drug Allergy 1 [facility] (1 source) Ciprofloxacin Drug Allergy 1 [facility] (5 sources) Cranberry Allergy to substance 3 [facility] (1 source) Cranberry Propensity to adverse reactions 0 Anaphylaxis [facility] Medications Current Medications Medication Drug Class(es) Dates Sig (Normalized) Sig (Original) acetaminophen 325 mg / HYDROcodone bitartrate 10 mg oral tablet (5 sources) Opioid Agonist Start: 12-21-2022 take 1 tablet by mouth every four hours as needed for pain HYDROcodone-acetami nophen ([place]) 10-325 MG tablet Take 1 tablet by mouth every 4 (four) hours if needed for moderate pain. 0 12/21/2022 Active Albuterol (Eqv-ProAir HFA) 90 mcg/inh inhalation aerosol (4 sources) Start: 08-22-2023 take 2 puff(s) by inhalation every four hours Albuterol (Eqv-ProAir HFA) 90 mcg/inh inhalation aerosol 2 puff(s), Inhalation, q4hr, 18 gm, Refill(s) 0, [facility], 172.7, cm, 08/22/23 17:00:00 EDT, Height/Length Dosing, 98.4, kg, 08/22/23 17:00:00 EDT, Weight Dosing Start Date: 08/22/23 Status: Ordered benzonatate 200 mg oral capsule (3 sources) Non-narcotic Antitussive Start: 08-22-2023 End: 09-01-2023 take 1 capsule by mouth three times daily benzonatate 200 mg oral capsule 200 mg = 1 cap(s), Oral, TID, X 10 day(s), # 30 cap(s), Refills(s) 0, Pharmacy: [facility], 172.7, cm, 08/22/23 17:00:00 EDT, Height/Length Dosing, 98.4, kg, 08/22/23 17:00:00 EDT, Weight Dosing Start Date: 08/22/23 Stop Date: 09/01/23 Status: Ordered brompheniramine maleate 0.4 mg/ml / dextromethorphan hydrobromide 2 mg/ml / pseudoephedrine hydrochloride 6 mg/ml oral solution (2 sources) alpha-Adrenergic Agonist, Uncompetitive L-evjrvy-U-asparta te Receptor Antagonist, Sigma-1 Agonist Start: 01-20-2022 take 5 mL by mouth four times daily Bromfed DM oral syrup 5 mL, Oral, QID for cold symptoms, 200 mL, Refill(s) 0, [facility], 174, cm, 01/20/22 9:44:00 EDT, Height/Length Dosing, 94, kg, 01/20/22 9:44:00 EDT, Weight Dosing Start Date: 01/20/22 Status: Ordered cyclobenzaprine hydrochloride 10 mg oral tablet (7 sources) Muscle Relaxant Start: 04-24-2023 take 1 tablet by mouth three times daily as needed for muscle spasms cyclobenzaprine 10 mg Tab 10 mg = 1 tab(s), Oral, TID, PRN for spasm, # 30 tab(s), Refills(s) 0, Pharmacy: [facility], 172.7, cm, 04/24/23 17:12:00 EST, Height/Length Dosing, 99, kg, 04/24/23 17:12:00 EST, Weight Dosing Start Date: 04/24/23 Status: Ordered Start: 02-11-2022 End: 02-16-2022 take 1 tablet by mouth three times daily as needed for pain cyclobenzaprine 10 mg Tab 10 mg = 1 tab(s), Oral, TID, PRN Muscle pain, X 5 day(s), # 15 tab(s), Refills(s) 0, Pharmacy: [facility] 1984, 173, cm, 02/11/22 12:01:00 EST, Height/Length Dosing, 105, kg, 02/11/22 12:01:00 EST, Weight Dosing Start Date: 02/11/22 Stop Date: 02/16/22 Status: Ordered Daily Multiple Vitamins (4 sources) Start: 04-09-2020 Daily Multiple Vitamins Oral, Daily, Refill(s) 0 Start Date: 04/09/20 Status: Ordered dextromethorphan hydrobromide 3 mg/ml / promethazine hydrochloride 1.25 mg/ml oral solution (4 sources) Phenothiazine, Uncompetitive B-wpvnuj-R-aspartat e Receptor Antagonist, Sigma-1 Agonist Start: 08-22-2023 take 5 mL by mouth every six hours for cough dextromethorphan -promethazine 15 mg-6.25 mg/5 mL Oral Syrup 5 mL 5 mL, Oral, q6hr for cough, 240 mL, Refill(s) 0, [facility], 172.7, cm, 08/22/23 17:00:00 EDT, Height/Length Dosing, 98.4, kg, 08/22/23 17:00:00 EDT, Weight Dosing Start Date: 08/22/23 Status: Ordered dicyclomine hydrochloride 10 mg oral capsule (3 sources) Anticholinergic Start: 08-25-2021 take 1 capsule by mouth four times daily as needed for pain Bentyl 10 mg Cap 10 mg = 1 cap(s), Oral, QID, PRN Other (see comment), Abdominal pain/ cramping, # 8 cap(s), Refills(s) 0 Start Date: 08/25/21 Status: Ordered doxycycline monohydrate 100 mg oral tablet (1 source) Tetracycline-class Drug Start: 08-26-2023 End: 09-02-2023 take 1 tablet by mouth twice daily doxycycline monohydrate 100 mg oral tablet 100 mg = 1 tab(s), Oral, BID, X 7 day(s), # 14 tab(s), Refills(s) 0, Pharmacy: [facility], 172.7, cm, 08/26/23 10:11:00 EDT, Height/Length Dosing, 99, kg, 08/26/23 10:11:00 EDT, Weight Dosing Start Date: 08/26/23 Stop Date: 09/02/23 Status: Ordered famotidine 20 mg oral tablet (4 sources) Histamine-2 Receptor Antagonist Start: 10-23-2019 take 1 tablet by mouth twice daily Pepcid 20 mg Tab 20 mg = 1 tab(s), Oral, BID, # 60 tab(s), Refills(s) 0, Pharmacy: [facility], 173, cm, 10/23/19 1:40:00 EDT, Height/Length Measured, 70.5, kg, 10/23/19 1:40:00 EDT, Weight Measured Start Date: 10/23/19 Status: Ordered ibuprofen 800 mg oral tablet (5 sources) Nonsteroidal Anti-inflammatory Drug Start: 12-21-2022 take 1 tablet by mouth every eight hours as needed for pain ibuprofen 800 MG tablet Take 800 mg by mouth every 8 (eight) hours if needed for moderate pain. 0 12/21/2022 Active lidocaine 0.05 mg/mg medicated patch (1 source) Antiarrhythmic, Amide Local Anesthetic Start: 02-11-2022 Lidoderm 5% Patch 1 patch(es), Topical, Daily Muscle pain, 7 EA, Refill(s) 0, apply 12 hours on and 12 hours off daily, [facility], 173, cm, 02/11/22 12:01:00 EST, Height/Length Dosing, 105, kg, 02/11/22 12:01:00 EST, Weight Dosing Start Date: 02/11/22 Status: Ordered Multivitamin preparation (10 sources) Start: 01-23-2023 multivitamin Refill(s) 0 Start Date: 01/23/23 Status: Ordered naproxen 500 mg oral tablet (1 source) Nonsteroidal Anti-inflammatory Drug Start: 02-11-2022 take 1 tablet by mouth twice daily as needed for pain naproxen 500 mg Tab 500 mg = 1 tab(s), Oral, BID, PRN for pain, # 20 tab(s), Refills(s) 0, Pharmacy: [facility], 173, cm, 02/11/22 12:01:00 EST, Height/Length Dosing, 105, kg, 02/11/22 12:01:00 EST, Weight Dosing Start Date: 02/11/22 Status: Ordered 24 hr nicotine 0.583 mg/hr transdermal system (2 sources) Cholinergic Nicotinic Agonist Start: 05-02-2023 End: 06-01-2023 apply 1 dose transdermal route every twenty-four hours nicotine (Nicoderm CQ) 14 MG/24HR patch Indications: Tobacco abuse Place 1 patch over 24 hours on the skin 1 (one) time each day at the same time 30 patch 0 05/02/2023 06/01/2023 Active [place] (No Known Home Meds) (1 source) Start: 05-17-2019 [place] (No Known Home Meds) Active May 17, 2019 1:00am phentermine hydrochloride 37.5 mg oral tablet (9 sources) Sympathomimetic Amine Anorectic Start: 02-05-2023 End: 05-01-2023 take 1 tablet by mouth before mealtime phentermine (Adipex-P) 37.5 MG tablet Indications: Obesity (BMI 30.0-34.9) , BMI 33.0-33.9,adult Take 1 tablet (37.5 mg) by mouth in the morning. Take before meals. 30 tablet 0 05/01/2023 Active Start: 02-26-2022 take 37.5 mg by mout h once daily Adipex-P 37.5 mg, Oral, Daily, Refills(s) 0 Start Date: 02/26/22 Status: Ordered predniSONE 20 mg oral tablet (6 sources) Start: 08-22-2023 predniSONE 20 mg Tab See Instructions, 3 po qam x3 days then 2po qam x3 days then 1 po qam x3 days. May stop the prednisone early if the cough resolves early, # 18 tab(s), Refills(s) 0, Pharmacy: [facility], 172.7, cm, 08/22/23 17:00:00 EDT, Height/Length Dosing, 98.4, kg, 08/22/23 17:00:00 EDT, Weight Dosing Start Date: 08/22/23 Status: Ordered Start: 04-24-2023 predniSONE 10 mg Tab = 1 -, Oral, As Directed, Take 3 tabs by mouth daily x3 days, then 2 tabs daily x3 days, then 1 tab daily x3 days., # 18 tab(s), Refills(s) 0, Pharmacy: [facility], 172.7, cm, 04/24/23 17:12:00 EST, Height/Length Dosing, 99, kg, 04/24/23 17:12:00 EST, Weight Dosing Start Date: 04/24/23 Status: Ordered Vit-Fe Fumarate-FA ( Plus/Iron) 27-1 MG tablet (5 sources) Start: 11-27-2022 End: 11-27-2023 take 1 tablet by mouth in the morning Vit-Fe Fumarate-FA ( Plus/Iron) 27-1 MG tablet Indications: Third trimester Take 1 tablet by mouth in the morning. 30 tablet 0 11/27/2022 11/27/2023 Active Zofran ODT 4 mg Tab-Dis (3 sources) Start: 08-25-2021 take 1 tablet by mouth every eight hours as needed for nausea Zofran ODT 4 mg Tab-Dis 4 mg = 1 tab(s), Oral, q8hr, PRN Nausea/Vomiting, # 12 tab(s), Refills(s) 0 Start Date: 08/25/21 Status: Ordered Completed/Discontinued Medications Medication Drug Class(es) Dates Sig (Normalized) Sig (Original) cephalexin 500 mg oral capsule (1 source) Cephalosporin Antibacterial Start: 03-10-2019 End: 05-17-2019 take 1 capsule by mouth twice daily Cephalexin (Keflex) 500 mg capsule Discontinued 500 MG PO Twice daily March 10, 2019 1:00am May 17, 2019 7:39pm ciprofloxacin 500 mg oral tablet (4 sources) Quinolone Antimicrobial Start: 11-20-2020 take 1 tablet by mouth twice daily Cipro 500 mg Tab 500 mg = 1 tab(s), Oral, BID, Take one tab by mouth twice a day for seven days, # 14 tab(s), Refills(s) 0 Start Date: 11/20/20 Status: Ordered 24 hr venlafaxine 75 mg extended release oral capsule (1 source) Serotonin and Norepinephrine Reuptake Inhibitor Start: 05-22-2019 End: 04-07-2021 take 75 mg by mouth once daily Venlafaxine Discontinued 75 MG PO Daily May 22, 2019 1:00am April 07, 2021 12:09pm Problems Active Problems Problem Classification Problem Date Documented Date Episodic/Chronic Abdominal pain (4 sources) Abdominal pain; Translations: [Unspecified abdominal pain] Onset: 09-17-2021 Episodic Calculus of urinary tract (20 sources) Kidney stone; Translations: [Calculus of kidney] Onset: 12-26-2021 02-26-2020 Episodic Fracture of lower limb (1 source) Closed fracture of phalanx of foot; Translations: [Unspecified fracture of unspecified toe(s), initial encounter for closed fracture] Onset: 03-13-2022 Episodic Genitourinary symptoms and ill-defined conditions (20 sources) Genuine stress incontinence; Translations: [Stress incontinence (female) (male)] Onset: 11-02-2022 03-16-2020 Chronic Genitourinary symptoms and ill-defined conditions (20 sources) H/O: kidney disease; Translations: [H/O: urethral stricture] Onset: 11-02-2022 02-26-2020 Episodic Headache; including migraine (7 sources) Migraine without aura, not refractory ; Translations: [Migraine without aura, not intractable, without status migrainosus] Onset: 11-02-2022 11-02-2022 Chronic Headache; including migraine (1 source) Headache; Translations: [Headache, unspecified] Onset: 02-26-2022 Episodic Immunizations and screening for infectious disease (1 source) Encounter for screening for human papillomavirus (HPV); Translations: [ENC SCREENING HUMAN PAPILLOMAVIRUS] Onset: 07-09-2022 Episodic Mood disorders (1 source) Recurrent major depression; Translations: [Major depressive disorder, recurrent, unspecified] 05-18-2019 Chronic Noninfectious gastroenteritis (1 source) Noninfectious enteritis; Translations: [Noninfective gastroenteritis and colitis, unspecified] Onset: 08-25-2021 Episodic Other diseases of kidney and ureters (20 sources) Renal mass 02-26-2020 Chronic Other diseases of kidney and ureters (20 sources) Hydronephrosis; Translations: [Unspecified hydronephrosis] Onset: 11-02-2022 02-26-2020 Episodic Other diseases of kidney and ureters (20 sources) Stricture of ureter; Translations: [Crossing vessel and stricture of ureter without hydronephrosis] Onset: 11-02-2022 02-26-2020 Episodic Other non-traumatic joint disorders (2 sources) Hip pain; Translations: [Pain in left hip] 05-01-2023 Episodic Other nutritional; endocrine; and metabolic disorders (20 sources) Body mass index 30+ - obesity; Translations: [Body mass index (BMI) 33.0-33.9, adult] 03-16-2020 Chronic Other nutritional; endocrine; and metabolic disorders (5 sources) Morbid obesity; Translations: [Morbid (severe) obesity due to excess calories] Onset: 11-02-2022 11-02-2022 Chronic Other nutritional; endocrine; and metabolic disorders (2 sources) Obese class I; Translations: [Obesity, unspecified] 05-01-2023 Chronic Other and delivery including normal (9 [...] Onset: 07-05-2022 Episodic Other upper respiratory infections (3 sources) Acute upper respiratory infection; Translations: [Acute upper respiratory infection, unspecified] Onset: 01-20-2022 Episodic Pneumonia (except that caused by tuberculosis or sexually transmitted disease) (1 source) Pneumonia; Translations: [Pneumonia, unspecified organism] Onset: 08-26-2023 Episodic Residual codes; unclassified (20 sources) Tobacco user; Translations: [Tobacco use] 09-03-2012 Episodic Comment on above: Added secondary to s ocial history documentation. Residual codes; unclassified (1 source) 10 weeks gestation of ; Translations: [10 WEEKS GESTATION OF ] Onset: 05-30-2022 Episodic Spondylosis; intervertebral disc disorders; other back problems (1 source) Backache; Translations: [Dorsalgia, unspecified] Onset: 02-11-2022 Episodic Substance-related disorders (20 sources) Smoker; Translations: [Nicotine dependence, unspecified, uncomplicated] Onset: 11-02-2022 02-05-2014 Chronic Comment on above: Added secondary to d ocumentation in Social History. Unclassified (1 source) Suicidal ideations / R45.851(ICD-10) Onset: 08-10-2017 Unclassified (20 sources) Onset: 10-03-2005 Resolved: 02-16-2100 03-22-2013 Unclassified (4 sources) Tobacco use during ( Confirmed ) 06-18-2013 Unclassified (16 sources) Tobacco use during 06-18-2013 Urinary tract infections (20 sources) Chronic cystitis; Translations: [Other chronic cystitis without hematuria] Onset: 12-26-2021 11-30-2020 Chronic Urinary tract infections (20 sources) Lower urinary tract infectious disease; Translations: [Urinary tract infectious disease] 10-24-2014 Episodic Varicose veins of lower extremity (2 sources) Varicose veins of lower extremity; Translations: [Varicose veins of bilateral lower extremities with pain] 07-25-2024 Episodic Past or Other Problems Problem Classification Problem Date Documented Da te Episodic/Chronic Hepatitis (4 sources) Viral hepatitis C; Translations: [Unspecified viral hepatitis C without hepatic coma] Onset: 03-23-2021 Resolved: 05-04-2021 Episodic Malaise and fatigue (5 sources) Fatigue; Translations: [Other fatigue] Onset: 11-02-2022 11-02-2022 Episodic Other complications of (5 sources) Viral hepatitis complicating , childbirth and the puerperium; Translations: [Viral hepatitis complicating , unspecified trimester] Onset: 03-29-2020 11-02-2022 Episodic Other complications of (5 sources) Tobacco smoking in mother complicating ; Translations: [Smoking (tobacco) complicating , unspecified trimester] Onset: 03-29-2020 11-02-2022 Episodic Previous (5 sources) ; Translations: [Maternal care for unspecified type scar from previous delivery] Onset: 04-02-2020 11-02-2022 Episodic Results Test Name Value Interpretation Reference Range Facility Consent for Treatmenton Consent for Treatment [id number] 0TIFF [facility] Discharge Instructionson Discharge Instructions [id number] 0TIFF Normal [facility] ED Clinical Summaryon 2023 ED Clinical Summary [place] [id number] ED Clinical Summary Person Information Name: FLORES HOUSER [facility] Age: 37 Years : 1985 Sex: Female Language: [place] PCP: Smiley GIMENEZ, Sybil Mendoza Marital Status: Single Visit Id: Visit Reason: Sinus Pain/Congestion; Cough; SOB, CP Speciality: Acuity: 3 Enc Type: Emergency Med Service: Emergency Arrival: 08/26/2023 09:45:36 Discharge: 08/26/2023 10:48:57 LOS: 000 01:03 Checkin: 08/26/2023 09:45:36 Checkout: 08/26/2023 10:48:57 Dispo Type: Home (Routine DC) EVENTS: Event Name Event Status Request Date/Time Start Date/Time Complete Date/Time Arrive Complete 08/26/2023 09:45:36 08/26/2023 09:45:36 08/26/2023 09:45:36 Document Home Meds Request 08/26/2023 09:45:36 Triage Complete 08/26/2023 09:45:36 08/26/2023 10:11:14 08/26/2023 10:11:14 EKG Complete 08/26/2023 09:47:53 08/26/2023 09:52:37 Bed Assign Complete 08/26/2023 09:55:30 08/26/2023 09:55:30 08/26/2023 09:55:30 Dr Exam Complete 08/26/2023 09:55:30 08/26/2023 10:03:13 08/26/2023 10:03:13 RN Exam Complete 08/26/2023 09:55:30 08/26/2023 10:48:24 08/26/2023 10:48:24 Registration Complete 08/26/2023 10:03:13 08/26/2023 10:05:43 08/26/2023 10:05:43 Reg Complete Request 08/26/2023 10:05:43 Reg Bed Request Complete 08/26/2023 10:05:43 08/26/2023 10:05:43 08/26/2023 10:05:43 X-Ray Complete 08/26/2023 10:07:48 08/26/2023 10:08:59 08/26/2023 10:21:20 Wet Read Complete 08/26/2023 10:21:20 08/26/2023 10:29:58 08/26/2023 10:29:58 Meds Admin Complete 08/26/2023 10:36:06 08/26/2023 10:42:52 Discharge Complete 08/26/2023 10:36:09 08/26/2023 10:49:03 08/26/2023 10:49:03 Transfer Complete 08/26/2023 10:49:03 08/26/2023 10:49:03 08/26/2023 10:49:03 ADDRESS: [address] [facility] [address] [id number] PHYS DOC NOTES: MEDICAL INFORMATION: Prescriptions Given: New Medications [facility], [address] [place], [place] [id number], [phone] doxycycline (doxycycline monohydrate 100 mg oral tablet) 1 Tablets By Mouth 2 times a day for 7 Days. Refills: 0. Medications to Continue with No Changes Other Medications albuterol (Albuterol (Eqv-ProAir HFA) 90 mcg/inh inhalation aerosol) 2 Puffs Inhalation every 4 hours. Refills: 0. benzonatate (benzonatate 200 mg oral capsule) 1 Capsules By Mouth 3 times a day for 10 Days. Refills: 0. cyclobenzaprine (cyclobenzaprine 10 mg Tab) 1 Tablets By Mouth 3 times a day as needed for spasm. Refills: 0. dextromethorphan-prome thazine (dextromethorphan-prom ethazine 15 mg-6.25 mg/5 mL Oral Syrup 5 mL) 5 Milliliter By Mouth every 6 hours as needed for cough. Refills: 0. multivitamin predniSONE (predniSONE 20 mg Tab) 3 po qam x3 days then 2po qam x3 days then 1 po qam x3 days. May stop the prednisone early if the cough resolves early. Refills: 0. PATIENT EDUCATION INFORMATION: Instructions: Follow up: With: Address: When: Sybil [place] [address] Business (1) In 3 days DIAGNOSIS: Pneumonia [facility] ED Note-Physicianon 08-26-19 ED Note-Physician Basic Information Time Seen: Lance Cortes DO 08/26/2023 10:03 History of Present Illness 37 female presents emergency department with chest tightness. Patient states she has been sick now for at least the last 8 or 10 days. She was seen at the urgent care on Sunday because of a sore throat and earache she was placed on numerous medications that she cannot recall the exact names of them. She states that she is really not any better and now she is feeling like this is now settling into her chest. She does believe that she has been using her inhaler and also some steroids and addition of some liquid cough medicine. She does not believe that she is on any antibiotics. Patient denies any chance of stating salpingectomy. She states that her pain in her ears and throat has gotten a lot better with the medications but now she is feeling this tightness and cough and wheeze into her chest. No other aggravating or relieving factors no other associated symptoms no other prior treatments or complaints. Family: Reviewed and noncontributory Social: lives at home Review of systems negative unless otherwise specified in the HPI. Physical Exam Nurse's notes and vital signs reviewed. General: Alert, no acute distress, patient resting comfortably Patient is not toxic or lethargic. Skin: Warm, intact, no pallor noted. There is no evidence of rash at this time. Head: Normocephalic, atraumatic Eye: Normal conjunctiva Ears, Nose, Throat: Moist mucous membranes. mild posterior pharyngeal erythema no exudate swelling shift or mass. No trisumus no stridor. Tympanic membranes unremarkable bilaterally no injection erythema no posterior effusions perforation or pus. No evidence of peritonsillar abscess Neck: No meningeal signs. Some anterior cervical lymphadenopathy Cardio: Regular Rate and Rhythm with normal peripheral perfusion Respiratory: No acute distress, no stridor, no retractions Abdomen: Soft, nontender, no masses detected. No rebound, guarding, or rigidity Neurological: Appropriate for age Psychiatric: Cooperative Medical Decision Making Imaging reveals left lower lobe pneumonia. I did review outpatient records looks like the patient was already on medication for cough and albuterol and prednisone she is to continue these medications. She is treated with doxycycline discharged home to follow-up return to ER symptoms change or worsen. Assessment/Plan Pneumonia (J18.9: Pneumonia, unspecified organism) Orders: doxycycline, 100 mg = 1 cap(s), Cap, Oral, Once, Stop date 08/26/23 10:35:00 EDT, STAT, Start date 08/26/23 10:35:00 EDT, 08/26/23 10:35:00 EDT doxycycline, 100 mg = 1 tab(s), Oral, BID, X 7 day(s), # 14 tab(s), Refills(s) 0, Pharmacy: [facility], 172.7, cm, 08/26/23 10:11:00 EDT, Height/Length Dosing, 99, kg, 08/26/23 10:11:00 EDT, Weight Dosing ECG 12 Lead Adult XR Chest 2 Views Disposition Plan Discharge Prescription List Prescriptions doxycycline monohydrate 100 mg oral tablet, 100 mg= 1 tab(s), Oral, BID Follow-up With When Contact Information Sybil Reis In [address] [place] [address]- Business (1) Additional Instructions: Problem List/Past Medical History Ongoing Bilateral kidney [...] Medications Inpatient No active inpatient medications Home Albuterol (Eqv-ProAir HFA) 90 mcg/inh inhalation aerosol, 2 puff(s), Inhalation, q4hr benzonatate 200 mg oral capsule, 200 mg= 1 cap(s), Oral, TID cyclobenzaprine 10 mg Tab, 10 mg= 1 tab(s), Oral, TID, PRN, Not taking dextromethorphan-prome thazine 15 mg-6.25 mg/5 mL Oral Syrup 5 mL, 5 mL, Oral, q6hr, PRN multivitamin, Not taking predniSONE 20 mg Tab, See Instructions Allergies Keflex (Hives) Social History Alcohol - Denies Alcohol Use, 09/03/2012 Current, 04/09/2020 Current, 1-2 times per month, 09/14/2019 Current, 05/16/2019 Substance Abuse - Denies Substance Abuse, 09/03/2012 Current, 04/09/2020 Current, 05/16/2019 Tobacco - Low Risk, 12/08/2019 Former smoker, quit more than 30 days ago Tobacco Use:. Never Smokeless Tobacco Use:. Cigarettes, Household tobacco concerns: No. Yes, 08/22/2023 Current, Cigarettes, 09/03/2012 Lab Results No qualifying data available. Diagnostic Results XR Chest 2 Views * Preliminary * 06 (more content not included)... [facility] Comment on above: Result Comment: Elec tronically Signed By: Lance Cortes DO\.br\Date and Time Signed: 08/26/23 10:36 EDT ED Patient Education Noteon 08-26-2023 ED Patient Education Note [facility] ED Patient Summaryon 024 ED Patient Summary [address] [address] Patient Discharge Instructions Person Information Name: JONYFLORES Age: 37 Years Arrival Date: 08/26/2023 09:45:36 Discharge Diagnosis: Pneumonia Primary Care Physician: Sybil Reis MD Provider Information Primary Provider: Lance Cortes DO Advanced Cnc Mill Operator:None The exam and treatment you received in the Emergency Department were for an urgent problem and are not intended as complete care. It is important that you follow up with a doctor, nurse practitioner, or physician?s operator assistant i cementing for ongoing care. If your symptoms become worse or you do not improve as expected and you are unable to reach your usual health care provider, you should return to the Emergency Department. We are available 24 hours a day. FLORES HOUSER has been given the following list of patient education materials, prescriptions and follow-up instructions: Follow-up Instructions: With: Address: When: Sybil [place] [address] Business (1) In 3 days In the event that this physician does not participate in your insurance network, please consult with your insurance company to find a nearby participating provider. Patient Education Materials: A MESSAGE TO ALL PATIENTS REGARDING OPIOIDS PRESCRIPTION OPIOIDS: WHAT YOU NEED TO KNOW Prescription opioids can be used to help relieve tervvfjp-zx-ipfgvx pain and are often prescribed following a [...] be struggling with addiction, tell your health family day carer and ask for guidance or call [facility] National Helpline at 2-313-475-XXIW. k Source: [place] Department of Health and Human Services/Center for Disease Control (more content not included)... [facility] XR Chest 2 Viewson XR Chest 2 Views Exam Date/Time: 08/26/2023 10:21 EDT Reason for Exam: Difficulty breathing Report IMPRESSION: LEFT LOWER LUNG ATELECTASIS/PNEUMONIA. CLINICAL INFORMATION: Difficulty breathing COMPARISON: CHEST RADIOGRAPH MAY 08, 2020. FINDINGS: 2 views. Osseous structures intact. Cardiopericardial silhouette normal. Pulmonary vasculature normal. Right lung clear. Ill-defined area of increased opacity posterior left lower lung. Ordering Provider: Lance Cortes FINAL REPORT Dictated: 08/26/2023 11:05 am Dao Hardin MD Signed (Electronic Signature): 08/26/2023 11:05 am Signed by: Dao Hardin MD Transcribed by: DARRIN Technologist: CATE Technical Comments Radiation Dose: Ka,r in mGy = na DAP = na [facility] Ambulatory Visit Summaryon 0 08-22-2023 Ambulatory Visit Summary FLORES HOUSER :1985 Visit Date:08/22/2023 Ambulatory Visit Instructions Your Diagnosis Viral URI with cough Your Care Team Attending Physician - Margaret CORREIA, Matthew W. Primary Care Physician - Smiley GIMENEZ, Sybil Mendoza This Is Your Medications List albuterol (Albuterol (Eqv-ProAir HFA) 90 mcg/inh inhalation aerosol) benzonatate (benzonatate 200 mg oral capsule) cyclobenzaprine (cyclobenzaprine 10 mg Tab) dextromethorphan-prome thazine (dextromethorphan-prom ethazine 15 mg-6.25 mg/5 mL Oral Syrup 5 mL) multivitamin predniSONE (predniSONE 20 mg Tab) Procedures Performed Nephrostomy tube (05/11/2015), Cystoscopy (04/14/2015), Cystoscopy (03/08/2015), cystoscopy, urethral dilatation, right retrograde pyelogram, right double J ureteral stent placement under fluoroscopic guidance (10/26/2014), section (09/05/2014), Exploratory laparotomy. Discharge Vitals Temperature (Oral) 36.8 ?C Heart Rate (Peripheral) 86 Blood Pressure 122/78 Height 172.7 cm Height 68 in Weight 98.4 kg Weight 216.48 lb BMI 32.99 Medications What How Much When Why Instructions New albuterol (Albuterol (Eqv-ProAir HFA) 90 mcg/ inh inhalation aerosol) 2 Puffs Inhalation Every 4 hours Viral URI with cough Pickup at [facility] New benzonatate (benzonatate 200 mg oral capsule) 1 Capsules By Mouth 3 times a day Viral URI with cough Duration: 10 Days Pickup at [facility] New dextromethorphan-prome thazine (dextromethorphan-prom ethazine 15 mg-6.25 mg/ 5 mL Oral Syrup 5 mL) 5 Milliliter By Mouth Every 6 hours as needed for for cough Viral URI with cough Pickup at [facility] Changed predniSONE (predniSONE 20 mg Tab) See instructions Viral URI with cough 3 po qam x3 days then 2po qam x3 days then 1 po qam x3 days. May stop the prednisone early if the cough resolves early Pickup at [facility] Unchanged cyclobenzaprine (cyclobenzaprine 10 mg Tab) 1 Tablets By Mouth 3 times a day as needed for for spasm Unchanged multivitamin Pharmacy Information [facility]: [address] [place], [place] [id number] [phone] Allergies Keflex (Hives) Problems Ongoing - Any problem that you are currently receiving treatment for. Bilateral kidney stones BMI 30.0-30.9,adult Chronic cystitis History of kidney disease History of kidney stones History of ureteral obstruction Hydronephrosis Kidney stone Nocturia Personal history of urethral stricture Renal mass Smoker.. Stress incontinence Ureteral stricture Historical - Any problem that you are no longer receiving treatment for. Kidney stones UTI (lower urinary tract infection) Patient Survey You may receive a survey via text or e-mail asking about your office visit. Please share your experience with us by completing your survey. We appreciate your feedback and thank you for choosing us for your care. [facility] Family Medicine Office/Clini c Noteon 08-22-2023 Family Medicine Office/Clinic Note Chief Complaint ear pain, sore throat, cough HPI Staff 37 year old female here for right ear pain, cough, sore throat, congestion since yesterday History of Present Illness 37-year-old female to the clinic for complaint of sore throat, right-sided ear pain, cough, mild tightness with breathing. Symptoms all began yesterday. Her young child is currently ill and is being treated for similar symptoms. Review of Systems PHQ Score Initial Depression Screen Score: 0 SCORE Constitutional: Denies fevers, chills. States she generally has not felt well since yesterday. Head/Ears/Nose/Throat: See HPI above Respiratory: See HPI above Cardiovascular: Denies chest pain GI/ : Denies abdominal pain, n/v. Denies UTI symptoms. Musculoskeletal: Denies Joint pain, Denies muscle pain Neurologic: Denies Headache, Denies focal neuro symptoms Physical Exam Vitals & Measurements T: 36.8 ?C(Oral) HR: 86(Peripheral) BP: 122/78 SpO2: 98% HT: 68 in HT: 172.7 cm WT: 98.4 kg WT: 216.48 lb BMI: 32.99 Primary assessment: Airway patent. Respirations unlabored. Normal respiratory effort Constitutional: Vital signs reviewed. Well appearing. No distress. Psychiatric: Mental status appropriate. Skin: Warm and dry. Eyes: Conjunctiva clear. HENT: Normal TMs. Posterior pharynx clear. Negative cervical lymphadenopathy. Thorax/ Respiratory: Respiratory effort non-labored. BBS clear ant/post. No wheezes, rales or rhonchi. Musculoskeletal: Neck supple Neurologic: Alert and oriented Assessment/Plan 1. Viral URI with cough (J06.9: Acute upper respiratory infection, unspecified) Ordered: albuterol, 2 puff(s), Inhalation, q4hr, 18 gm, Refill(s) 0, [facility], 172.7, cm, 08/22/23 17:00:00 EDT, Height/Length Dosing, 98.4, kg, 08/22/23 17:00:00 EDT, Weight Dosing benzonatate, 200 mg = 1 cap(s), Oral, TID, X 10 day(s), # 30 cap(s), Refills(s) 0, Pharmacy: [facility], 172.7, cm, 08/22/23 17:00:00 EDT, Height/Length Dosing, 98.4, kg, 08/22/23 17:00:00 EDT, Weight Dosing dextromethorphan-prome thazine, 5 mL, Oral, q6hr for cough, 240 mL, Refill(s) 0, [facility], 172.7, cm, 08/22/23 17:00:00 EDT, Height/Length Dosing, 98.4, kg, 08/22/23 17:00:00 EDT, Weight Dosing predniSONE, See Instructions, 3 po qam x3 days then 2po qam x3 days then 1 po qam x3 days. May stop the prednisone early if the cough resolves early, # 18 tab(s), Refills(s) 0, Pharmacy: [facility], 172.7, cm, 08/22/23 17:00:00 EDT, Height/Length... Rapid Strep POC 17573 Strep Screen Culture 2. Pharyngitis (J02.9: Acute pharyngitis, unspecified) -POC strep a: negative, sent for C&S -Medications as above for symptom control and control of her cough and inflammation. -Primary care provider in 5 to 7 days if the symptoms or not improving. Follow-up No qualifying data available Problem List/Past Medical History Ongoing Bilateral kidney [...] guidance (10/26/2014), section (09/05/2014), Exploratory laparotomy. Medications Albuterol (Eqv-ProAir HFA) 90 mcg/inh inhalation aerosol, 2 puff(s), Inhalation, q4hr benzonatate 200 mg oral capsule, 200 mg= 1 cap(s), Oral, TID cyclobenzaprine 10 mg Tab, 10 mg= 1 tab(s), Oral, TID, PRN, Not taking dextromethorphan-prome thazine 15 mg-6.25 mg/5 mL Oral Syrup 5 mL, 5 mL, Oral, q6hr, PRN multivitamin, Not taking predniSONE 20 mg Tab, See Instructions Allergies Keflex (Hives) Social History Alcohol - Denies Alcohol Use, 09/03/2012 Current, 04/09/2020 Current, 1-2 times per month, 09/14/2019 Current, 05/16/2019 Substance Abuse - Denies Substance Abuse, 09/03/2012 Current, 04/09/2020 Current, 05/16/2019 Tobacco - Low Risk, 12/08/2019 Former smoker, quit more than 30 days ago Tobacco Use:. Never Smokeless Tobacco Use:. Cigarettes, Household tobacco concerns: No. Yes, 08/22/2023 Current, Cigarettes, 09/03/2012 Immunizations Vaccine Date Status diphtheria/pertussis, acel/tetanus adult 09/26/2019 Given Lab Results Ambulatory Point of Care Results Rapid Strep POC Result: Negative (08/22/23 17:16:00) [facility] Comment on above: Result Comment: Elec tronically Signed By: Margaret CORREIA, Matthew WDora\.br\Date and Time Signed: 08/22/23 17:20 EDT US LE Venous Duplex Lefton 0 05-17-2023 US LE Venous Duplex Left Exam Date/Time: 05/16/2023 16:45 EST Reason for Exam: R22.42 Report [facility] [phone] IMPRESSION: NO EVIDENCE OF VENOUS THROMBOSIS INVOLVING VISUALIZED DEEP VEINS OF THE LEFT LEG. CLINICAL HISTORY: R22.42 COMMENT: On the left, the greater saphenous vein, common femoral vein, deep femoral vein, femoral vein, and popliteal vein demonstrate spontaneous phasic venous flow, with augmentation, competence, non-pulsatility, and compressibility every 2 cm. The left posterior tibial and peroneal veins of the deep venous system compress. The contralateral right common femoral vein demonstrates spontaneous phasic venous flow. Ordering Provider: Yung Morataya FINAL REPORT Dictated: 05/17/2023 4:46 pm Joe Broderick MD, V. Signed (Electronic Signature): 05/17/2023 4:46 pm Signed by: Joe Broderick MD, V. Transcribed by: DARRIN Technologist: COURTNEY [facility] Consent for Treatmenton 04-20 Consent for Treatment [id number] 0TIFF [facility] Physician Orderon 05-14-2023 Physician Order [id number]#[id number] 0TIFF [facility] Physician Orderon 05-07-2023 Physician Order [id number] 00TIFF [facility] US Pelvis Non-OB Completeon 05-04-2023 US Pelvis Non-OB Complete Exam Date/Time: 05/03/2023 17:14 EST Reason for Exam: R10.32 Report IMPRESSION: WIDENED ENDOMETRIUM. COLLAPSING LEFT OVARIAN CYST. PELVIC SONOGRAPHY WITH COLOR FLOW AND DOPPLER. CLINICAL HISTORY: R10.32 COMPARISONS: None available. TECHNICAL FACTORS: Transabdominal and transvaginal sonography with transvaginal imaging was obtained to better assess pelvic anatomy. FINDINGS: Uterus: Normal in size, shape, and echogenicity. Retroflexed in orientation. Endometrium: Widened measuring 6 to 8 mm. Right ovary: Normal in size, shape, and echogenicity. Color flow and Doppler without anomaly. Left ovary: Normal in size, and shape. 2.1 x 1.9 x 2.0 cm irregularly contoured, walled, left ovarian cyst. Color flow and Doppler without anomaly. Free fluid: None Adnexal masses: None The uterus measurements and an estimated volume are: Uterus Length: 12.3 cm Uterus Width: 7.9 cm Uterus Height: 5.3 cm Uterus Volume: 268.9 cm3 Endometrium Thickness: 1.6 cm The right ovary measurements and an estimated volume are: Right Ovary Length: 2.3 cm Right Ovary Width: 2.3 cm Right Ovary Height: 1.3 cm Right Ovary Volume: 3.6 cm3 The left ovary measurements and an estimated volume are: Report Left Ovary Length: 3.4 cm Left Ovary Width: 2.3 cm Left Ovary Height: 3.5 cm Left Ovary Volume: 14.7 cm3 Ordering Provider: Sybil Reis FINAL REPORT Dictated: 05/04/2023 10:28 am Dao Hardin MD Signed (Electronic Signature): 05/04/2023 10:28 am Signed by: Dao Hardin MD Transcribed by: DARRIN Technologist: PACHECO Technical Comments Transabdominal Ultrasound Performed Transvaginal Ultrasound Performed Uterus Position Retroflexed [facility] US Transvaginal Non-OBon US Transvaginal Non-OB Exam Date/Time: 05/03/2023 17:15 EST Reason for Exam: Pelvic pain Report Please review report of pelvic ultrasound, non-OB, for report of transvaginal ultrasound Ordering Provider: Sybil Reis FINAL REPORT Dictated: 05/04/2023 10:29 am Dao Hardin MD Signed (Electronic Signature): 05/04/2023 10:29 am Signed by: Dao Hardin MD Transcribed by: DARRIN Technologist: PACHECO [facility] Consent for Treatmenton 04-19 Consent for Treatment [id number] 0TIFF [facility] Physician Orderon 05-02-2023 Physician Order [id number]#1.0 0TIFF [facility] ED Note-Physicianon 04-27-19 ED Note-Physician Basic Information Time Seen: Kenna Clark PA-C 04/24/2023 17:43 Chief Complaint c/o left hip pain for 3 months. No known injury. History of Present Illness This patient presents emergency department chief complaint of left hip pain. She states this pain has been going on for 3 months now. The patient denies any fevers chills or sweats. She denies any numbness or tingling. She denies incontinence of bowel or bladder. She denies any urinary burning frequency or urgency. She denies any constipation or diarrhea. The patient denies any back pain. The patient did have a baby 3 months ago. She states that she usually supports her 3-month-old on this hip. Review of Systems Constitutional: Denies weight loss, fevers, chills, sweats, malaise Eyes: Denies visual changes, eye pain, double vision, scotomas, floaters ENT: Denies runny nose, epistaxis, sinus pain, ear pain, ringing in ears, tooth ache, sore throat, pain with swallowing Cardiovascular: Denies chest pain, shortness of breath, orthopnea, edema, palpitations, loss of consciousness, claudication Respiratory: Denies cough, sputum production, wheezing, hemoptysis, shortness of breath, dyspnea on exertion Gastrointestinal: Denies abdominal pain, unintentional weight loss, difficulty swallowing, indigestion, bloating, cramping, loss of appetite, nausea, vomiting, diarrhea, constipation, hematochezia, melena Genitourinary: Denies any incontinence of urine, dysuria, hematuria, nocturia, polyuria, hesitancy, frequency, urgency, burning Musculoskeletal: Denies joint pain, morning stiffness, joint swelling, decreased range of motion, crepitus. Left hip pain Integumentary: Denies any pruritus, rashes, lesions, wounds, petechiae Neurologic: Denies any changes in sight, smell, hearing, taste, seizures, headache, paresthesia, numbness, weakness, balance disturbance Psychiatric denies any depression, change in sleep patterns, anxiety, difficulty concentrating, paranoia, anhedonia, lack of energy, alexandre Hematologic/lymphatic: Denies any purpura, petechiae, excessive bleeding, bruising Physical Exam Vitals & Measurements T: 36.6 ?C(Oral) HR: 82(Peripheral) RR: 16 BP: 124/83 SpO2: 98% HT: 172.7 cm WT: 99 kg BMI: 33.19 Vital Signs reviewed and noted. General: Alert, no acute distress, patient resting comfortably Skin: warm, intact, no pallor noted Head: Normocephalic, atraumatic Eye: Normal conjunctiva Cardiac: Normal peripheral perfusion Respiratory: No acute distress Musculoskeletal: No deformity, full ROM. Patient has tenderness on palpation of the anterior left hip. There is no crepitus. Patient has full active range of motion. Distal neurovascular is intact. Neurological: alert and oriented, normal sensory and motor observed. Psychiatric: Cooperative Medical Decision Making MEDICAL DECISION MAKING Number and Complexity of Problems Differential Diagnosis: Left hip strain, left hip sprain, arthritis, bursitis, muscle strain, pinched nerve, polymyositis, sacrococcygeal dysfunction, Crohn's disease, diverticulitis, celiac disease MDM Data External documents reviewed: Not applicable My EKG interpretation: Noted in chart if applicable My CT interpretation: Noted in chart if applicable My X-ray interpretation: Noted in chart if applicable My Ultrasound interpretation: Not applicable Decision rules/scores evaluated: Noted in chart if applicable Discussed with: Not applicable Treatment and Disposition ED Course: Patient was interviewed and examined. Plain film x-ray was obtained. Plain film x-ray is without any acute findings. I discussed with the patient that is likely she is suffering from pelvic girdle pain caused by chronically carrying her 3-month-old child and supporting her on this hip. I discussed the discharge diagnosis, plan of care, home-going prescriptions. The patient is to follow-up with orthopedics and/or her primary care physician. The patient will be discharged home in stable condition. She is to return to the emergency department for any further problems or concerns. Shared decision making: I discussed the discharge diagnosis and plan of care with the patient. She is in agreement with the plan of care. Code status: Not applicable Assessment/Plan 1. Repetitive strain injury of left hip (S76.012A: Strain of muscle, fascia and tendon of left hip, initial encounter) 2. Pain of pelvic girdle (R10.2: Pelvic and perineal pain) Orders: cyclobenzaprine, 10 mg = 1 tab(s), Oral, TID, PRN for spasm, # 30 tab(s), Refills(s) 0, Pharmacy: [facility], 172.7, cm, 04/24/23 17:12:00 EST, Height/Length Dosing, 99, kg, 04/24/23 17:12:00 EST, Weight Dosing predniSONE, = 1 -, Oral, As Directed, Take 3 tabs by mouth daily x3 days, then 2 tabs daily x3 days, then 1 tab daily x3 days., # 18 tab(s), Refills(s) 0, Pharmacy: [facility], 172.7, cm, 04/24/23 17:12:00 EST, Height/Length Dosing, 99, kg, ... XR Hip 2-3 Views Left + Pelvis (more content not included)... [facility] Comment on above: Result Comment: Elec tronically Signed By: Kenna Clark PA-C\.br\Date and Time Signed: 04/25/23 00:01 EST\.br\Electronically Co-Signed By: Lance Cortes DO\.br\Date and Time Co-Signed: 04/27/23 08:57 EST XR Hip 2-3 Views Left + Pelv ana 04-25-2023 XR Hip 2-3 Views Left + Pelvis Exam Date/Time: 04/24/2023 18:20 EST Reason for Exam: Pain, Traumatic Report IMPRESSION: NEGATIVE PELVIS AND LEFT HIP. CLINICAL HISTORY: Pain, Traumatic COMPARISON: NONE. FINDINGS: Imaging of pelvis and left hip shows no fracture, dislocation, bone lesion. Joint spaces are maintained. Ordering Provider: Kenna Clark FINAL REPORT Dictated: 04/25/2023 9:34 am Dao Hardin MD Signed (Electronic Signature): 04/25/2023 9:34 am Signed by: Dao Hardin MD Transcribed by: DARRIN Technologist: LUX Technical Comments Radiation Dose: Ka,r in mGy = na DAP = na [facility] Consent for Treatmenton Consent for Treatment [id number]#[id number] 0TIFF [facility] Discharge Instructionson Discharge Instructions [id number] 0TIFF [facility] ED Clinical Summaryon 2023 ED Clinical Summary [address] [address] ED Clinical Summary Person Information Name: FLORES HOUSER [place] Age: 37 Years : 1985 Sex: Female Language: [place] PCP: DOMO REIS DO Marital Status: Single Visit Id: Visit Reason: Hip pain-swelling; LEFT HIP PAIN Speciality: Acuity: 4 Enc Type: Emergency Med Service: Emergency Arrival: 04/24/2023 16:53:59 Discharge: 04/24/2023 19:25:06 LOS: 000 02:32 Checkin: 04/24/2023 16:53:59 Checkout: 04/24/2023 19:25:06 Dispo Type: Home (Routine DC) EVENTS: Event Name Event Status Request Date/Time Start Date/Time Complete Date/Time Arrive Complete 04/24/2023 16:53:59 04/24/2023 16:53:59 04/24/2023 16:53:59 Document Home Meds Request 04/24/2023 16:53:59 Triage Complete 04/24/2023 16:53:59 04/24/2023 17:12:05 04/24/2023 17:12:05 Registration Complete 04/24/2023 16:58:24 04/24/2023 16:58:24 04/24/2023 16:58:24 Reg Complete Request 04/24/2023 16:58:24 Reg Bed Request Complete 04/24/2023 16:58:24 04/24/2023 16:58:24 04/24/2023 16:58:24 Bed Assign Complete 04/24/2023 17:08:22 04/24/2023 17:08:22 04/24/2023 17:08:22 Dr Exam Complete 04/24/2023 17:08:22 04/24/2023 17:43:07 04/24/2023 17:43:07 RN Exam Complete 04/24/2023 17:08:22 04/24/2023 18:22:01 04/24/2023 18:22:01 Registration Request 04/24/2023 17:43:07 Dr Exam Complete 04/24/2023 17:43:24 04/24/2023 17:43:24 04/24/2023 17:43:24 X-Ray Cancel 04/24/2023 18:03:59 04/24/2023 18:04:30 04/24/2023 18:04:58 X-Ray Complete 04/24/2023 18:04:56 04/24/2023 18:04:57 04/24/2023 18:20:23 Wet Read Complete 04/24/2023 18:20:23 04/24/2023 18:59:53 04/24/2023 18:59:53 Discharge Complete 04/24/2023 19:19:58 04/24/2023 19:25:21 04/24/2023 19:25:21 Transfer Complete 04/24/2023 19:25:21 04/24/2023 19:25:21 04/24/2023 19:25:21 AD[address]: [address] [place] [id number] PHYS DOC NOTES: MEDICAL INFORMATION: Prescriptions Given: New Medications [employer] [facility] [address], [address], [place] [id number], [phone] cyclobenzaprine (cyclobenzaprine 10 mg Tab) 1 Tablets By Mouth 3 times a day as needed for spasm. Refills: 0. predniSONE (predniSONE 10 mg Tab) 1 Dose Separtor By Mouth As Directed. Take 3 tabs by mouth daily x3 days, then 2 tabs daily x3 days, then 1 tab daily x3 days.. Refills: 0. Medications to Continue with No Changes Other Medications multivitamin PATIENT EDUCATION INFORMATION: Instructions: Hip Pain; Hip Exercises; Artificial Urinary Sphincter Placement, Care After Follow up: With: Address: When: Juan Nelson [address] [place] [address] Business (1) In 3 days 04/27/2023 With: Address: When: DOMO REIS [address] [place] [address] Business (1) In 3 days DIAGNOSIS: 1:Repetitive strain injury of left hip; Overexertion from repetitive movements, initial encounter Normal [facility] ED Patient Education Noteon 04-24-2023 ED Patient Education Note Orthopedics Hip Pain The hip is the joint between the upper legs and the lower pelvis. The bones, cartilage, tendons, and muscles of your hip joint support your body and allow you to move around. Hip pain can range from a minor ache to severe pain in one or both of your hips. The pain may be felt on the inside of the hip joint near the groin, or on the outside near the buttocks and upper thigh. You may also have swelling or stiffness in your hip area. Follow these instructions at home: Managing pain, stiffness, and swelling ? If directed, put ice on the painful area. To do this: ? Put ice in a plastic bag. ? Place a towel between your skin and the bag. ? Leave the ice on for 20 minutes, 2?3 times a day. ? If directed, apply heat to the affected area as often as told by your health care provider. Use the heat source that your health [...] a greater risk of getting burned. Activity ? Do exercises as told by your health care provider. ? Avoid activities that cause pain. General instructions ? Take nwqx-eax-bihuwsa and prescription medicines only as told by your health care provider. ? Keep a journal of your symptoms. Write down: ? How often you have hip pain. ? The location of your pain. ? What the pain feels like. ? What makes the pain worse. ? Sleep with a pillow between your legs on your most comfortable side. ? Keep all follow-up visits as told by your health care provider. This is important. Contact a health care provider if: ? You cannot put weight on your leg. ? Your pain or swelling continues or gets worse after one week. ? It gets harder to walk. ? You have a fever. Get help right away if: ? You fall. ? You have a sudden increase in pain and swelling in your hip. ? Your hip is red or swollen or very tender to touch. Summary ? Hip pain can range from a minor ache to severe pain in one or both of your hips. ? The pain may be felt on the inside of the hip joint near the groin, or on the outside near the buttocks and upper thigh. ? Avoid activities that cause pain. ? Write down how often you have hip pain, the location of the pain, what makes it worse, and what it feels like. This information is not intended to replace advice given to you by your health care provider. Make sure you discuss any questions you have with your health care provider. Document Revised: 07/21/2019 Document Reviewed: 07/21/2019 [employer] Patient Education ? 2022 [employer]. Hip Exercises Ask your health care provider which exercises are safe for you. Do exercises exactly as told by your health care provider and adjust them as directed. It is normal to feel mild stretching, pulling, tightness, or discomfort as you do these exercises. Stop right away if you feel sudden pain or your pain gets worse. Do not begin these exercises until told by your health care provider. Stretching and listc-nm-vexigz exercises These exercises warm up your muscles and joints and improve the movement and flexibility of your hip. These exercises also help to relieve pain, numbness, and tingling. You may be asked to limit your range of motion if you had a hip replacement. Talk to your health care provider about these restrictions. Hamstrings, supine 1. Lie on your back (supine position). 2. Loop a belt or towel over the ball of your left / right foot. The ball of your foot is on the walking surface, right under your toes. 3. Straighten your left / right knee and slowly pull on the belt or towel to raise your leg until you feel a gentle stretch behind your knee (hamstring). ? Do not let your knee bend while you do this. ? Keep your other leg flat on the floor. 4. Hold this position for seconds. 5. Slowly return your leg to the starting position. Repeat times. Complete this exercise times a day. Hip rotation 1. Lie on your back on a firm surface. 2. With your left / right hand, gently pull your left / right knee toward the shoulder that is on the same side of the body. Stop when your knee is pointing toward the ceiling. 3. Hold your left / right ankle with your other hand. 4. Keeping your knee steady, gently pull your left / right ankle toward your other shoulder until you feel a stretch in your buttocks. ? Keep your hips and shoulders firmly planted while you do this stretch. 5. Hold this position for seconds. Repeat times. Complete this exercise times a day. Seated stretch (Inserted Image. (more content not included)... Normal [facility] ED Patient Summaryon 024 ED Patient Summary [place] [id number] Patient Discharge Instructions Person Information Name: FLORES HOUSER Age: 37 Years Arrival Date: 04/24/2023 16:53:59 Discharge Diagnosis: 1:Repetitive strain injury of left hip; Overexertion from repetitive movements, initial encounter Primary Care Physician: DOMO REIS DO Provider Information Primary Provider: Lance Cortes DO [employer] Operator:Allison The exam and treatment you received in the Emergency Department were for an urgent problem and are not intended as complete care. It is important that you follow up with a doctor, nurse practitioner, or physician?s operator assistant i cementing for ongoing care. If your symptoms become worse or you do not improve as expected and you are unable to reach your usual health care provider, you should return to the Emergency Department. We are available 24 hours a day. FLORES HOUSER has been given the following list of patient education materials, prescriptions and follow-up instructions: Follow-up Instructions: With: Address: When: Juan Nelson [address] [place] [address] Business (1) In 3 days 04/27/2023 With: Address: When: DOMO REIS [address] [facility] [address] [place] [address] Business (1) In 3 days In the event that this physician does not participate in your insurance network, please consult with your insurance company to find a nearby participating provider. Patient Education Materials: Hip Pain; Hip Exercises; Artificial Urinary Sphincter Placement, Care After A MESSAGE TO ALL PATIENTS REGARDING OPIOIDS PRESCRIPTION OPIOIDS: WHAT YOU NEED TO KNOW Prescription opioids can be used to help relieve hwrmevrl-pu-katllw pain and are often prescribed following a [...] ourcesForYou). ? Visit www.cdc.gov/drugoverdo se to learn abou (more content not included)... Normal [facility] Calculus Analysison 04-06-19 24 Calcium oxalate monohydrate (Stone) [Mass fraction] 60 % Invalid Interpretation Code [facility] Comment on above: Performed By: #### 1 [id number] ####[facility] [address] [place] [address] Calculus analysis [Interp] Comment Invalid Interpretation Code [facility] Comment on above: Result Comment: Calc ium phosphate (hydroxyl form) includes hydroxyapatite, amorphous calcium phosphate, and whitlockite. Hydroxyapatite is the most common of the calcium phosphate salts found in human kidney stones. Performed By: #### 1 [id number] ####[facility] [address] [place] [address] Color (Stone) Vanessa Invalid Interpretation Code [facility] Comment on above: Performed By: #### 1 [id number] ####[facility] [address] [place] [address] Composition Comment Invalid Interpretation Code [facility] Comment on above: Result Comment: Perc entage (Represents the % composition) Performed By: #### 1 [id number] ####[facility] [address] [place] [address] Disclaimer: Comment Invalid Interpretation Code [facility] Comment on above: Result Comment: This test was developed and its performance characteristics determined by [facility]. It has not been cleared or approved by the Food and Drug Administration. Performed at: [facility] [id number] PhD Shamar Jeffery Performed By: #### 1 [id number] ####[facility] [address] [place] [address] Hydroxyapatite: 40 % Invalid Interpretation Code [facility] Comment on above: Performed By: #### 1 [id number] ####[facility] [address] [facility] [address] Laboratory comment Urbano (Report) Comment Invalid Interpretation Code [facility] Comment on above: Result Comment: Kaia mckinnon questions regarding Calculi Analysis contact [facility] at: [phone]. Performed By: #### 1 [id number] ####[place] [address] [place] [address] Please Note: Comment Invalid Interpretation Code [facility] Comment on above: Result Comment: Calc juan j report will follow via computer, mail or kindergarten assistant delivery. Performed By: #### 1 [id number] ####[place] [address] [facility] [place] [address] Size (Stone) [Entitic vol] 3x2 Invalid Interpretation Code [facility] Comment on above: Result Comment: Mult iple pieces received. Dimensions of the largest piece reported. Performed By: #### 1 [id number] ####[place] [place] [address] Specimen source subject Nom Comment Invalid Interpretation Code [facility] Comment on above: Result Comment: Not provided Performed By: #### 1 [id number] ####[facility] [address] [place] [address] Stone Photo Comment Invalid Interpretation Code [facility] Comment on above: Result Comment: Phot ograph will follow under a separate cover Performed By: #### 1 [id number] ####[facility] [address] [place] [address] Weight (Stone) 6 mg Invalid Interpretation Code [facility] Comment on above: Performed By: #### 1 [id number] ####[facility] [address] [place] [address] Lab Reportson 03-15-2023 Lab Reports [id number]#1.0 0TIFF Normal [facility] Operative Reporton Operative Report [id number]#1.0 0TIFF Normal [facility] RAD - MISCon 03-15-2023 RAD - MISC [id number]#1.0 0TIFF Normal [facility] ECG 12-Leadon 03-13-2023 ECG 12-Lead [id number]#1.0 0TIFF Normal [facility] Lab Reportson 03-13-2023 Lab Reports [id number]#1.0 0TIFF Normal [facility] Consent for Procedure/Surger yon 02-22-2023 Consent for Procedure/Surgery [id number]#1.0 0TIFF Normal [facility] Patient Educationon 02-23-20 23 Patient Education [...] including vitamins, herbs, eye drops, creams, and huno-fno-bxbtksz medicines. ? Any problems you or family [...] tells you to take them. ? Taking auvd-wzv-usjosyd medicines, vitamins, herbs, and supplements. Tests You [...] safe. Summary (more content not included)... Normal [facility] US Renalon 02-16-2023 US Renal Exam [...] MD Transcribed by: DARRIN Technologist: COURTNEY Eric [facility] Consent for Treatmenton - Consent for Treatment [id number] 0TIFF Normal [facility] RAD - MISCon 02-07-2023 RAD - MISC [id number]#1.0 0TIFF [facility] Patient Educationon 01-24-20 Patient Education Nephrology Dietary [...] ? 8 oz (237 mL) of milk, ajuyhhm-jprzrgegrlgj-y airy milk, and calcium-fortifiedfruit juice. Calcium-fortified means [...] Spinach (cooked), rhubarb, beets, sweet potatoes, and Nepalese chard. ? Peanuts. ? Potato chips, chadian fries, and baked potatoes with skin on. ? Nuts and nut products. ? Chocolate. ? If you regularly take a diuretic medicine, make sure to eat at least 1 or 2 servings of fruits or vegetables that are high in potassium each day. These include: ? Avocado. ? Banana. ? Sieper, prune, carrot, or tomato juice. ? Baked [...] fish oil, or vitamin B6. ? Take lmzn-nyz-zyeguac and prescription medicines only as told by your health care provider. These include supplements. What foods should I limit? Limit your in (more content not included)... Normal [facility] Urology Office/Clinic Noteon 01-23-2023 Urology Office/Clinic [...] hx of nephrostomy tube done 05/11/15 in [place]. Will call pt with plan. Ordered: Body [...] and neph tube placement by urologist in [facility] 2015 3. Personal history of urethral stricture (Z87.448: Personal history of other diseases of urinary system) S/p Cysto/Urethral Dilation/R RGP/R stent placement 10/26/[address] Fierro. Ordered: Urnls Dip Stick Auto w/o Microscopy POC 29238 4. Chronic cystitis (N30.20: Other chronic cystitis without hematuria) UA today negative for infection, trace-intact blood. Denies any infections since last encounter. Follow-up With When Contact Information ISABELL CORREIA, FLORES Gonzalez, URL [address] [place] [phone] Additional Instructions: will call pt Patient Education Dietary Guidelines to Help Prevent Kidney Stones Documentation recorded by the timbo Putnam accurately reflects the services(s) I performed and decisions made by me. Authenticated by Flores Campbell PA-C on 01/23/2023 15:39:59. ISamantha, personally scribed for Flores Campbell PA-C on 01/23/2023 15:32:21. . Problem List/Past [...] Yes, 01/23 (more content not included)... Normal [facility] Comment on above: Result Comment: Elec tronically Signed By: FLORES CAMPBELL PA-C\.br\Date and Time Signed: 01/23/23 15:40 EST\.br\Electronically Co-Signed By: Samantha Putnam\.br\Date and Time Co-Signed: 01/23/23 15:32 EST RAD - MISCon 01-22-2023 RAD - MISC [id number]#1.0 0TIFF Normal [facility] Physician Orderon 01-15-2023 Physician Order [id number]#1.00 TIFF Normal [facility] AFP MATERNAL FOR SPINA BIFID Aon 07-28-2022 AFP MoM 0.59 Normal [facility] Comment on above: Performed By: #### M AG24 #### [facility] [address] [place] [address] [address] Anthony Oneill AFP Value 27.0 ng/mL Normal [facility] Comment on above: Performed By: #### M AG24 #### [facility] [address] [place] [address] [address] Anthony Oneill AFP, Serum for Spina Bifida Report Normal [facility] Comment on above: Performed By: #### M AG24 #### [facility] [address] [place] [address] [address] Anthony Oneill Comment Comment Normal [facility] Comment on above: Result Comment: Eduardo Alatorre, Ph.D., [facility] Director . References: Available Upon Request. . Multiples Of Median Cutoffs For AFP Elevations Rodríguez 2.5 Black 2.8 IDD 2.0 Twins 4.5 Abbreviation Definitions IDD - Insulin Dep Diabetes OSBR - Open Spina Bifida Risk . For further inquiries contact [facility] at [phone]. . This test was developed and its performance characteristics determined by [facility]. It has not been cleared or approved by the Food and Drug Administration. Performed By: #### M AG24 #### [facility] [address] [place] [address] Dr. Anthony Wolfe Age Collection Date 20.1 weeks Normal [facility] Comment on above: Performed By: #### M AG24 #### [facility] [address] [place] [address] Dr. Anthony Oneill Gestat, Age Based on LMP Normal [facility] Comment on above: Result Comment: Reca lculations are not recommended when gestational dating by LMP and ultrasound are within 10 days. Performed By: #### M AG24 #### [facility] [address] [place] [address] Dr. Anthony Oneill Insulin Dep Diabetes No Normal [facility] Comment on above: Performed By: #### M AG24 #### [facility] [address] [place] [address] Dr. Anthony Oneill Interpretation Comment Normal [facility] Comment on above: Result Comment: Inte rpretation: [...] Customer Services to discuss available options. The [employer] recommends amniocentesis be offered to women age 35 and older. Performed By: #### M AG24 #### [facility] [address] [place] [address] Dr. Anthony Oneill [age] Normal [facility] Comment on above: Performed By: #### M AG24 #### [facility] [address] [place] [address] Dr. Anthony Oneill Multiple Gestation No Normal [facility] Comment on above: Performed By: #### M AG24 #### [facility] [address] [address] [address] Anthony Oneill [place] [address] Normal [facility] Comment on above: Performed By: #### M AG24 #### [facility] [address] [place] [address] [address] Anthony Oneill PDF . Normal [facility] Comment on above: Performed By: #### M AG24 #### [facility] [address] [place] [address] Dr. Anthony Oneill Race [facility] Comment on above: Performed By: #### M AG24 #### [facility] [address] [place] [address] Dr. Anthony Oneill Test Results: Negative [facility] Comment on above: Performed By: #### M AG24 #### [facility] [address] [place] [address] Dr. Anthony Oneill PAP ACOG PANEL 2: 30 to 65on 07-12-2022 . . Normal [facility] Comment on above: Result Comment: Perf ormed at: WB Performed By: #### M AG24 #### [facility] [address] [place] [address] Dr. Anthony Oneill Age Gdln ACOG Testing - [facility] Comment on above: Performed By: #### M AG24 #### [facility] [address] [place] [address] Dr. Anthony Oneill DIAGNOSIS: Comment [facility] Comment on above: Result Comment: NEGA TIVE FOR INTRAEPITHELIAL LESION OR MALIGNANCY. Performed at: WB Performed By: #### M AG24 #### [facility] [address] [place] [address] Dr. Anthony Oneill HPV Aptima Negative Normal [facility] Comment on above: Result Comment: This nucleic acid amplification test detects fourteen high-risk HPV types (16,18,31,33,35,39,45,51,52,56,58,59,66,68) without differentiation. Performed at: =G Performed By: #### M AG24 #### [facility] [address] [place] [address] Dr. Anthony Oneill HPV Genotype Reflex Comment Normal [facility] Comment on above: Result Comment: Crit eria not met, HPV Genotype not performed. Performed at: WB Performed By: #### M AG24 #### [facility] [address] [place] [address] Dr. Anthony Oneill Methodology: Comment Normal [facility] Comment on above: Result Comment: This liquid based ThinPrep(R) pap test was screened with the use of an image guided system. Performed at: WB Performed By: #### M AG24 #### [facility] [address] [place] [address] Dr. Anthony Oneill Note: Comment Normal [facility] Comment on above: Result Comment: The Pap smear is a screening test designed to aid in the detection of premalignant and malignant conditions of the uterine cervix. It is not a diagnostic procedure and should not be used as the sole means of detecting cervical cancer. Both false-positive and false-negative reports do occur. . Performed at: WB Performed By: #### M AG24 #### [facility] [address] [place] [address] Dr. Anthony Oneill Performed by: Comment Normal [facility] Comment on above: Result Comment: Elizabeth Garcia, Tin Plater Performed at: WB Performed By: #### M AG24 #### [facility] [address] [place] [address] Dr. Anthony Oneill Specimen adequacy: Comment Normal [facility] Comment on above: Result Comment: Sati sfactory for evaluation. No endocervical component is identified. Performed at: WB Performed By: #### M AG24 #### [facility] [address] [place] [address] Dr. Anthony Oneill CHLAMYDIA/GONOCOCCUS LYLA (SW AB/URINE/PAPon 07-07-2022 Chlamydia trachomatis, LYLA Negative Normal Negative [facility] Comment on above: Performed By: #### H CVPCRR #### [facility] [address] [place] [address] Dr. Anthony Oneill Neisseria gonorrhoeae, LYLA Negative Normal Negative [facility] Comment on above: Performed By: #### H CVPCRR #### [facility] [address] [address] [address] Anthony Oneill HEPATITIS C VIRUS AB W/ REFL EX QUANTon 06-01-2022 HCV AB Reactive Abnormal Non Reactive [facility] Comment on above: Performed By: #### H CVPCRR #### [facility] [address] [place] [address] Dr. Anthony Oneill HCV log10 Normal [facility] Comment on above: Performed By: #### H CVPCRR #### [facility] [address] [address] [address] Anthony Oneill Hep C Quantitation Not detected Normal [facility] Comment on above: Performed By: #### H CVPCRR #### [facility] [address] [address] [address] Anthony Oneill Interpretation Comment Normal [facility] Comment on above: Result Comment: Posi tive HCV antibody screen without the presence of HCV RNA is consistent with a resolved past infection or a false positive HCV antibody. Consider repeat testing after one month. Performed By: #### H CVPCRR #### [facility] [address] [place] [address] Dr. Anthony Oneill Test Information: Comment Normal [facility] Comment on above: Result Comment: The quantitative range of this assay is 15 IU/mL to 100 million IU/mL. Performed By: #### H CVPCRR #### [facility] [address] [place] [address] Dr. Anthony Oneill HEP B SURFACE ANTIGEN SCREEN on 05-30-2022 HBsAg Screen Negative Normal Negative [facility] Comment on above: Performed By: #### H CVPCRR #### [facility] [address] [address] [address] Anthony Oneill HIV 1 AND 2 WITH REFLEXon HIV Screen 4th Generation wRfx Non-Reactive Normal Non Reactive [facility] Comment on above: Result Comment: HIV Negative HIV-1/HIV-2 antibodies and HIV-1 p24 antigen were NOT detected. There is no laboratory evidence of HIV infection. Performed By: #### M AG24 #### [facility] [address] [place] [address] Dr. Anthony Oneill RPR QUANTon 05-30-2022 Rapid Plasma Reagin, Quant Non-Reactive Normal NonRea<1:1 [facility] Comment on above: Result Comment: Jorgito diaz Note: This test does not meet current guidelines for screening and diagnosis of syphilis. This test is intended for following treatment response in patients being treated for syphilis infection. To screen for syphilis infection, a reflex cascade that includes both RPR and a treponema-specific assay should be utilized, such as Treponema pallidum (Syphilis) Screening [place] (802734) or Rapid Plasma Reagin (RPR) Test With Reflex to Quantitative RPR and Confirmatory Treponema pallidum Antibodies (134845). Performed By: #### R PRQ #### [facility] [address] [place] [address] Dr. Anthony Oneill RUBELLA AB IGGon 05-30-2022 Rubella Antibodies, IgG 8.79 index Normal Immune >0.99 [facility] Comment on above: Result Comment: Non- immune <0.90 Equivocal 0.90 - 0.99 Immune >0.99 Performed By: #### C REA24U, NA24U #### [facility] [address] [place] [address] Dr. Anthony Oneill BOX TEST SENT OUTon 05-30-19 23 SENT TO REF LAB 05/29/2022 Normal [facility] [place] Comment on above: Performed By: #### M AG24 #### [facility] [address] [place] [address] Dr. Anthony Oneill CBC AUTO DIFFon 05-29-2022 BASO # 0.0 103/ul Normal 0.0-0.1 [facility] Comment on above: Performed By: #### H CVPCRR #### [facility] [address] [place] [address] Dr. Anthony Oneill Basophils/100 WBC (Bld) 0.4 % Normal 0.2-2.0 [facility] Comment on above: Performed By: #### H CVPCRR #### [facility] [address] [place] [address] Dr. Anthony Oneill EO # 0.1 103/ul Normal 0.0-0.7 [facility] Comment on above: Performed By: #### H CVPCRR #### [facility] [address] [place] [address] Dr. Anthony Oneill Eosinophils/100 WBC (Bld) 0.7 % Critically low 0.9-7.0 [facility] Comment on above: Performed By: #### H CVPCRR #### [facility] [address] [place] [address] Dr. Anthony Oneill Erythrocyte distribution width (RBC) [Ratio] 14.3 % Normal 11.0-15.0 [facility] Comment on above: Performed By: #### H CVPCRR #### [facility] [address] [place] [address] Dr. Anthony Oneill Hematocrit (Bld) [Volume fraction] 37.5 % Normal 36.0-48.0 [facility] Comment on above: Performed By: #### H CVPCRR #### [facility] [address] [place] [address] Dr. Anthony Oneill Hemoglobin (Bld) [Mass/Vol] 12.4 g/dL Normal 12.0-16.0 [facility] Comment on above: Performed By: #### H CVPCRR #### [facility] [address] [place] [address] Dr. Anthony Oneill IG # 0.03 10e3/ul Normal 0.00-0.03 [facility] Comment on above: Performed By: #### H CVPCRR #### [facility] [address] [place] [address] Dr. Anthony Oneill IG % 0.3 % Normal 0.0-0.5 [facility] Comment on above: Performed By: #### H CVPCRR #### [facility] [address] [place] [address] Dr. Anthony Oneill LYMPH # 2.9 103/ul Normal 1.2-3.8 [facility] Comment on above: Performed By: #### H CVPCRR #### [facility] [address] [address] [address] Anthony Oneill Lymphocytes/100 WBC (Bld) 31.9 % Normal 20.5-60.0 [facility] Comment on above: Performed By: #### H CVPCRR #### [facility] [address] [place] [address] Dr. Anthony Oneill MANUAL DIFF REQ NO Normal [facility] Comment on above: Performed By: #### H CVPCRR #### [facility] [address] [place] [address] Dr. Anthony Oneill MCH (RBC) [Entitic mass] 28.9 pg Normal 26.7-34.0 [facility] Comment on above: Performed By: #### H CVPCRR #### [facility] [address] [place] [address] Dr. Anthony Oneill MCHC (RBC) [Mass/Vol] 33.1 g/dL Normal 29.9-35.2 [facility] Comment on above: Performed By: #### H CVPCRR #### [facility] [address] [place] [address] Dr. Anthony Oneill MCV (RBC) [Entitic vol] 87.4 fL Normal 81.0-99.0 [facility] Comment on above: Performed By: #### H CVPCRR #### [facility] [address] [place] [address] Dr. Anthony Oneill MONO # 0.5 103/ul Normal 0.3-0.8 [facility] Comment on above: Performed By: #### H CVPCRR #### [facility] [address] [place] [address] Dr. Anthony Oneill Monocytes/100 WBC (Bld) 5.4 % Normal 1.7-12.0 [facility] Comment on above: Performed By: #### H CVPCRR #### [facility] [address] [place] [address] Dr. Anthony Oneill NEUT # 5.6 103/ul Normal 1.4-6.5 [facility] Comment on above: Performed By: #### H CVPCRR #### [facility] [address] [address] [address] Anthony Oneill Neutrophils/100 WBC (Bld) 61.3 % Normal 43.0-75.0 [facility] Comment on above: Performed By: #### H CVPCRR #### [facility] [address] [address] [address] Anthony Oneill Platelet mean volume (Bld) [Entitic vol] 10.6 fL Normal 9.5-13.5 [facility] Comment on above: Performed By: #### H CVPCRR #### [facility] [address] [address] [address] Anthony Oneill PLT 305 103/ul Normal 150-450 [facility] Comment on above: Performed By: #### H CVPCRR #### [facility] [address] [place] [address] Dr. Anthony Oneill RBC 4.29 106/ul Normal 4.20-5.40 [facility] Comment on above: Performed By: #### H CVPCRR #### [facility] [address] [place] [address] Dr. Anthony Oneill WBC 9.1 103/ul Normal 4.0-11.0 [facility] Comment on above: Performed By: #### H CVPCRR #### [facility] [address] [place] [address] Dr. Anthony Oneill CULTURE URINEon 05-29-2022 CULTURE URINE Culture Observations : LIGHT GROWTH OF MIXED GENITAL BRITNI. NO POTENTIAL PATHOGENS SEEN. Normal [facility] Comment on above: Performed By: #### H CVPCRR #### [facility] [address] [place] [address] Dr. Anthony Oneill DRUG SCREEN RAPID (URINE)on 05-29-2022 AMP Negative Normal NEGATIVE [facility] Comment on above: Performed By: #### C REA24U, NA24U #### [facility] [address] [place] [address] Dr. Anthony Oneill BAR Negative Normal NEGATIVE [facility] Comment on above: Performed By: #### C REA24U, NA24U #### [facility] [address] [place] [address] Dr. Anthony Oneill BUP Negative Normal NEGATIVE [facility] Comment on above: Performed By: #### C REA24U, NA24U #### [facility] [address] [place] [address] Dr. Anthony Oneill BZO Negative Normal NEGATIVE [facility] Comment on above: Performed By: #### C REA24U, NA24U #### [facility] [address] [place] [address] Dr. Anthony Oneill ISABELLA Negative Normal NEGATIVE [facility] Comment on above: Performed By: #### C REA24U, NA24U #### [facility] [address] [place] [address] Dr. Anthony Oneill CUT-OFFS SEE BELOW Normal [facility] Comment on above: Result Comment: AMP [...] Performed By: #### C REA24U, NA24U #### [facility] [address] [place] [address] Dr. Anthony Oneill DRUG CUT HEADER DRUG CLASS TEST SYST EM CUT-OFF CONCENTRATIONS ARE FOLLOWS: Normal [facility] Comment on above: Performed By: #### C REA24U, NA24U #### [facility] [address] [place] [address] Dr. Anthony Oneill mAMP Negative Normal NEGATIVE [facility] Comment on above: Performed By: #### C REA24U, NA24U #### [facility] [address] [address] [address] Anthony Oneill MTD Negative Normal NEGATIVE [facility] Comment on above: Performed By: #### C REA24U, NA24U #### [facility] [address] [address] [address] Anthony Oneill OPI Negative Normal NEGATIVE [facility] Comment on above: Performed By: #### C REA24U, NA24U #### [facility] [address] [address] [address] Anthony Oneill OXY Negative Normal NEGATIVE [facility] Comment on above: Performed By: #### C REA24U, NA24U #### [facility] [address] [address] [address] Anthony Oneill PCP Negative Normal NEGATIVE [facility] Comment on above: Performed By: #### C REA24U, NA24U #### [facility] [address] [place] [address] Dr. Anthony Oneill PPX Negative Normal NEGATIVE [facility] Comment on above: Performed By: #### C REA24U, NA24U #### [facility] [address] [place] [address] Dr. Anthony Oneill TCA Negative Normal NEGATIVE [facility] Comment on above: Performed By: #### C REA24U, NA24U #### [facility] [address] [place] [address] Dr. Anthony Oneill THC Negative Normal NEGATIVE [facility] Comment on above: Performed By: #### C REA24U, NA24U #### [facility] [address] [place] [address] Dr. Anthony Oneill GLYCOHEMOGLOBIN A1Con 2022 ADA RECOMMENDATION SEE BELOW Normal [facility] Comment on above: Result Comment: ADA RECOMMENDED LIMIT 4.0 - 6.0 ADA THERAPEUTIC TARGET < 7.0 ACTION SUGGESTED > 7.0 Performed By: #### M AG24 #### [facility] [address] [place] [address] Dr. Anthony Oneill Glucose [Mass/Vol] 114 mg/dL Normal [facility] Comment on above: Performed By: #### M AG24 #### [facility] [address] [address] [address] Anthony Oneill HbA1c (Bld) [Mass fraction] 5.6 % Normal 4.5-6.2 [facility] Comment on above: Performed By: #### M AG24 #### [facility] [address] [place], [place] [address] Dr. Anthony Oneill TYPE AND SCREENon 05-29-2022 TYPE AND SCREEN Negative Normal [facility] Comment on above: Performed By: #### H CVPCRR #### [facility] [address] [address] [address] Anthony Oneill US PREG TVon 05-29-2022 [...] live intrauterine . Electronically authenticated by: PHILLIP GUAN Date: 2022-05-29 21:20 Normal [facility] OXALATE 24HR URINEon 023 Oxalates, Urine 17 mg/L Normal Undefined [facility] Comment on above: Performed By: #### C REA24U, NA24U #### [facility] [address] [address] [address] Anthony Oneill Oxalates, Urine 24hr 19 mg/24 hr Normal 4-31 [facility] Comment on above: Performed By: #### C REA24U, NA24U #### [facility] [address] [address] [address] Anthony Oneill CITRATE URINE 24HRon 023 Citric Acid, U, 24hr 739 mg/24 hr Normal 320-1240 [facility] Comment on above: Result Comment: This test was developed and its performance characteristics determined by [employer]. It has not been cleared or approved by the Food and Drug Administration. Performed By: #### M AG24 #### [facility] [address] [address] [address] Anthony Oneill Citric Acid, Urine 672 mg/L Normal Undefined [facility] Comment on above: Performed By: #### M AG24 #### [facility] [address] [place] [address] Dr. Anthony Oneill MAGNESIUM 24HR URINEon 05-12 Magnesium 24hr Urine 85.8 mg/24 hr Normal 12.0-293.0 [facility] Comment on above: Performed By: #### H CVPCRR #### [facility] [address] [place] [address] Dr. Anthony Oneill Magnesium UR 7.8 mg/dL Normal Not Estab. [facility] Comment on above: Performed By: #### H CVPCRR #### [facility] [address] [address] [address] Anthony Oneill PHOSPHORUS 24HR URINEon 04-20 Phosphorus, Urine 57.0 mg/dL Normal Not Estab. [facility] Comment on above: Performed By: #### P HOS 24 #### [facility] [address] [place] [address] Dr. Anthony Oneill Phosphorus, Urine 24hr 627 mg/24 hr Normal 261-1078 [facility] Comment on above: Performed By: #### P HOS 24 #### [facility] [address] [place] [address] Dr. Anthony Oneill PTH INTACTon 05-12-2022 PTH, Intact 29 pg/mL Normal 15-65 [facility] Comment on above: Performed By: #### M AG24 #### [facility] [address] [place] [address] Dr. Anthony Oneill URIC ACID 24 HR URINEon 04-20 Uric Acid, Urine 39.7 mg/dL Normal Not Estab. [facility] Comment on above: Performed By: #### R PRQ #### [facility] [address] [place] [address] Dr. Anthony Oneill Uric Acid, Urine 24hr 436.7 mg/24 hr Normal 173.7-902. 1 [facility] Comment on above: Performed By: #### R PRQ #### [facility] [address] [place] [address] Dr. Anthony Oneill CALCIUM 24 HR URINEon 2022 CALC, 24 HR UR 309.1 mg/24 hr Critically high 100.0-300.0 [facility] Comment on above: Performed By: #### C REA24U, NA24U #### [facility] [address] [place] [address] Dr. Anthony Oneill UR CALCIUM 28.1 mg/dL Critically high 5.1-21.0 [facility] Comment on above: Performed By: #### C REA24U, NA24U #### [facility] [address] [place] [address] Dr. Anthony Oneill CREA 24 HR URINEon CREA, 24 HR UR 902.66 mg/24 hr Normal 800.00-1,8 00 .00 [facility] Comment on above: Performed By: #### H CVPCRR #### [facility] [address] [place] [address] Dr. Anthony Oneill URINE CREAT 82.06 mg/dL Normal 20.00-300.00 [facility] Comment on above: Performed By: #### H CVPCRR #### [facility] [address] [place] [address] Dr. Anthony Oneill ELECTROLYTESon 05-10-2022 Anion gap [Moles/Vol] 13.3 mmol/L Normal [facility] Comment on above: Performed By: #### E LEC #### [facility] [address] [place] [address] Dr. Anthony Oneill Chloride [Moles/Vol] 101 mmol/L Normal 98-107 [facility] Comment on above: Performed By: #### E LEC #### [facility] [address] [address] [address] Anthony Oneill CO2 [Moles/Vol] 25.1 mmol/L Normal 21.0-32.0 [facility] Comment on above: Performed By: #### E LEC #### [facility] [address] [address] [address] Anthony Oneill Potassium [Moles/Vol] 3.4 mmol/L Critically low 3.5-5.1 [facility] Comment on above: Performed By: #### E LEC #### [facility] [address] [address] [address] Anthony Oneill Sodium [Moles/Vol] 136 mmol/L Normal 136-145 [facility] Comment on above: Performed By: #### E LEC #### [facility] [address] [place] [address] Dr. Anthony Oneill SODIUM 24 HR URINEon 023 NA, 24 HR UR 133 mmol/24 hr Normal 40-220 [facility] Comment on above: Performed By: #### H CVPCRR #### [facility] [address] [place] [address] Dr. Anthony Oneill Sodium (U) [Moles/Vol] 121 mmol/L Critically high 30-90 [facility] Comment on above: Performed By: #### H CVPCRR #### [facility] [address] [place] [address] Dr. Anthony Oneill UR TOT VOL 1100 ml/24 HR Normal [facility] Comment on above: Performed By: #### H CVPCRR #### [facility] [address] [address] [address] Anthony Oneill Performed By: #### C REA24U, NA24U #### [facility] [address] [place] [address] Dr. Anthony Oneill HEMATOLOGYOrdered By: Melvina Bustamante on 02-26-2022 Sed Rate Automated 15 mm/h Normal 0 - 34 mm/hr [facility] HemeAutoSS SEROLOGYOrdered By: Tracey Saldana on 02-11-2022 HCG.beta subunit (U) [Moles/Vol] Negative Normal [facility] Man Sero URINALYSISOrdered By: Ernie Saldana on [...] PM) Normal Negative [facility] UA Auto SS Nolic.plasma/Lithiu m.RBC (Bld) [Mass ratio] 0-3 /HPF Normal [...] [facility] UA Auto SS Urobilinogen Qn (U) [id number] {Yarely'U}/dL Normal 0.0 - 1.0 EU/dL [facility] UA Auto SS WBC Auto Ql (U) Negative (02/11/22 12:08 PM) Normal Negative [facility] UA Auto SS WBC LM.HPF (Urine sed) [#/Area] 0-5 /HPF Normal 0-5/HPF [facility] UA Auto SS CITRATE URINE 24HRon 022 Citric Acid, U, 24hr 318 mg/24 hr Critically low 320-1240 [facility] Comment on above: Result Comment: This test was developed and its performance characteristics determined by [employer]. It has not been cleared or approved by the Food and Drug Administration. Performed By: #### M AG24 #### [facility] [address] [address] [address] Anthony Oneill Citric Acid, Urine 796 mg/L Normal Undefined [facility] Comment on above: Performed By: #### M AG24 #### [facility] [address] [address] [address] Anthony Oneill OXALATE 24HR URINEon 022 Oxalates, Urine 29 mg/L Normal Undefined [facility] Comment on above: Performed By: #### M AG24 #### [facility] [address] [place] [address] Dr. Anthony Oneill Oxalates, Urine 24hr 12 mg/24 hr Normal 4-31 [facility] Comment on above: Performed By: #### M AG24 #### [facility] [address] [address] [address] Anthony Oneill MAGNESIUM 24HR URINEon 01-28 Magnesium 24hr Urine 34.4 mg/24 hr Normal 12.0-293.0 [facility] Comment on above: Performed By: #### M AG24 #### [facility] [address] [address] [address] Anthony Oneill Magnesium UR 8.6 mg/dL Normal Not Estab. [facility] Comment on above: Performed By: #### M AG24 #### [facility] [address] [place] [address] Dr. Anthony Oneill PHOSPHORUS 24HR URINEon 01-17 Phosphorus, Urine 123.6 mg/dL Normal Not Estab. [facility] Comment on above: Performed By: #### P HOS 24 #### [facility] [address] [place] [address] Dr. Anthony Onelil Phosphorus, Urine 24hr 494 mg/24 hr Normal 261-1078 [facility] Comment on above: Performed By: #### P HOS 24 #### [facility] [address] [place] [address] Dr. Anthony Oneill PTH INTACTon 01-28-2022 PTH, Intact 17 pg/mL Normal 15-65 [facility] Comment on above: Performed By: #### P THINT #### [facility] [address] [place] [address] Dr. Anthony Oneill URIC ACID 24 HR URINEon 01-17 Uric Acid, Urine 71.0 mg/dL Normal Not Estab. [facility] Comment on above: Performed By: #### U EVONNE 24 #### [facility] [address] [place] [address] Dr. Anthony Oneill Uric Acid, Urine 24hr 284.0 mg/24 hr Normal 173.7-902. 1 [facility] Comment on above: Performed By: #### U EVONNE 24 #### [facility] [address] [place] [address] Dr. Anthony Oneill XR KUB 1 VIEWon [...] stable left nephrolithiasis. Electronically authenticated by: PHILLIP GUAN Date: 2022-01-28 06:20 Normal [facility] BUNon 01-27-2022 Urea nitrogen [Mass/Vol] 12.0 mg/dL Normal 7.0-18.0 [facility] Comment on above: Performed By: #### R PRQ #### [facility] [address] [place] [address] Dr. Anthony Oneill CALCIUMon 01-27-2022 Calcium [Mass/Vol] 8.8 mg/dL Normal 8.5-10.1 [facility] Comment on above: Performed By: #### R PRQ #### [facility] [address] [place] [address] Dr. Anthony Oneill CALCIUM 24 HR URINEon 2021 CALC, 24 HR UR 84.0 mg/24 hr Critically low 100.0-300.0 [facility] Comment on above: Performed By: #### M AG24 #### [facility] [address] [place] [address] Dr. Anthony Oneill UR CALCIUM 21.0 mg/dL Normal 5.1-21.0 [facility] Comment on above: Performed By: #### M AG24 #### [facility] [address] [place] [address] Dr. Anthony Oneill CHLORIDEon 01-27-2022 Chloride [Moles/Vol] 104 mmol/L Normal 98-107 [facility] Comment on above: Performed By: #### R PRQ #### [facility] [address] [place] [address] Dr. Anthony Oneill CO2on 01-27-2022 CO2 [Moles/Vol] 25.8 mmol/L Normal 21.0-32.0 [facility] Comment on above: Performed By: #### R PRQ #### [facility] [address] [place] [address] Dr. Anthony Oneill CREA 24 HR URINEon 2 CREA, 24 HR UR 1005.08 mg/24 hr Normal 800.00-1, 800 .00 [facility] Comment on above: Performed By: #### C REA24U NA24U #### [facility] [address] [place] [address] Dr. Anthony Oneill UR TOT VOL 400 ml/24 HR Normal [facility] Comment on above: Performed By: #### C REA24U, NA24U #### [facility] [address] [place] [address] Dr. Anthony Oneill Performed By: #### M AG24 #### [facility] [address] [place] [address] Dr. Anthony Oneill URINE CREAT 251.27 mg/dL Normal 20.00-300.00 [facility] Comment on above: Performed By: #### C REA24U, NA24U #### [facility] [address] [place] [address] Dr. Anthony Oneill CREATININEon 01-27-2022 Creatinine [Mass/Vol] 0.81 mg/dL Normal 0.55-1.02 [facility] Comment on above: Performed By: #### R PRQ #### [facility] [address] [place] [address] Dr. Anthony Oneill EGFR-AF BANGLADESHI >60 Normal >=60 [facility] Comment on above: Performed By: #### R PRQ #### [facility] [address] [place] [address] Dr. Anthony Oneill EGFR-NON AF BANGLADESHI >60 Normal >=60 [facility] Comment on above: Performed By: #### R PRQ #### [facility] [address] [place] [address] Dr. Anthony Oneill NAon 01-27-2022 Sodium [Moles/Vol] 135 mmol/L Critically low 136-145 [facility] Comment on above: Performed By: #### R PRQ #### [facility] [address] [place] [address] Dr. Anthony Oneill POTASSIUMon 01-27-2022 Potassium [Moles/Vol] 3.6 mmol/L Normal 3.5-5.1 [facility] Comment on above: Performed By: #### R PRQ #### [facility] [address] [place] [address] Dr. Anthony Oneill SODIUM 24 HR URINEon 022 NA, 24 HR UR 47 mmol/24 hr Normal 40-220 [facility] Comment on above: Performed By: #### C REA24U, NA24U #### [facility] [address] [place] [address] Dr. Anthony Oneill Sodium (U) [Moles/Vol] 118 mmol/L Critically high 30-90 [facility] Comment on above: Performed By: #### C REA24U, NA24U #### [facility] [facility] [address] [place], [place] [address] Dr. Anthony Oneill URIC ACID SERUMon 01-27-2022 Urate [Mass/Vol] 5.2 mg/dL Normal 2.6-6.0 [facility] Comment on above: Performed By: #### R PRQ #### [facility] [address] [place], [place] [address] Dr. Anthony Oneill MICRO OTHER TESTSOrdered By: Juan Soria on 01-20-2022 Influenzae A Ag Negative (01/20/22 10:14 AM) Normal Negative [facility] Influenzae B Ag Negative (01/20/22 10:14 AM) Normal Negative [facility] Rapid COV Int NEG Ctl Pass (01/20/22 10:14 AM) Normal [facility] Rapid COV Int POS Ctl Pass (01/20/22 10:14 AM) Normal [facility] SARS-CoV+SARS-CoV-2 (COVID-19) Ag IA.rapid Ql (Resp) Not Detected (01/20/22 10:14 AM) Normal Not Detected [facility] XR KUB 1 VIEWon 12-12-2021 [...] urinary tract calculi Electronically authenticated by: LEIGH AGUILAR Date: 2021-12-12 19:52 Normal [facility] SEROLOGYOrdered By: Agustín chavez on 09-17-2021 HCG.beta subunit (U) [Moles/Vol] Negative Normal [facility] URINALYSISOrdered By: Agustín Noble on 09-17-2021 Bilirubin Ql (U) Negative (09/17/21 12:19 AM) Normal Negative [facility]A Auto SS Clarity (U) Clear (09/17/21 12:19 AM) Normal Clear [facility]A Auto SS Color (U) Yellow (09/17/21 [...] AM) Normal Negative [facility] UA Auto SS Nolic.plasma/Lithiu m.RBC (Bld) [Mass ratio] 0-3 /HPF Normal [...] Desc Clean Catch (09/17/21 12:19 AM) Normal [facility] Auto SS Urobilinogen Qn (U) [id number] {Yarely'U}/dL Normal 0.0 - 1.0 EU/dL [facility] [...] mg/dL Normal 8.9 - 11. 1 mg/dL [facility] Remisol Chloride [Moles/Vol] 107 mmol/L Normal 101 - 1 11 mmol/L [facility] Remisol CO2 [Moles/Vol] 22 mmol/L Normal 21 - 31 mmol/L [facility] Remisol Creatinine [Mass/Vol] 0.7 mg/dL Normal 0.5 - 1.3 mg/dL [facility] Remisol GFR/1.73 sq M.predicted among blacks MDRD (S/P/Bld) [Vol rate/Area] mL/min/1.73 m2 Normal >=59mL/min/1 .73 m2 [facility] Chem S GFR/1.73 sq M.predicted among non-blacks [...] 34.0 g/dL Normal 31.4 - 36.0 gm/dL [facility] HemeAutoSS MCV (RBC) [Entitic vol] 85.0 fL Normal 80.0 - 100.0 fL [facility] HemeAutoSS Platelet mean volume (Bld) [Entitic vol] 9.3 fL Normal 6.4 - 10.8 fL [facility] HemeAutoSS Platelets (Bld) [#/Vol] 305.0 E9/L Normal 150.0 - 500.0 E9/L [facility] HemeAutoSS RBC (Bld) [#/Vol] 4.7 E12/L Normal 4.3 - 5.9 E12/L [facility] HemeAutoSS WBC corrected for nucl RBC Auto (Bld) [#/Vol] 11.3 E9/L High 4.0 - 11.0 E9/L [facility] HemeAutoSS Complete Blood Count Auto Di ffon 04-07-2021 Basophils (Bld) [#/Vol] 0.1 10*3/uL Normal 0.0-0.2 [facility] Comment on above: Result Comment: PERF ORMED BY: [place] [address] PATHOLOGIST POWERHOUSE ATTENDANT MARLEY CALLES M.D. Performed By: #### C BC, CMP #### [facility] [address] [place] [address] #### HBSAB, HCV RIAN, HBCAB, HBSAG, HCV RX PCR #### [facility] , Basophils/100 WBC (Bld) 0.8 % Normal . [facility] Comment on above: Performed By: #### C BC, CMP #### [facility] [address] [place] [address] #### HBSAB, HCV RIAN, HBCAB, HBSAG, HCV RX PCR #### [facility] , Eosinophils (Bld) [#/Vol] 0.2 10*3/uL Normal 0.0-0.45 [facility] Comment on above: Performed By: #### C BC, CMP #### [place] [address] [place] #### HBSAB, HCV RIAN, HBCAB, HBSAG, HCV RX PCR #### [facility] , Eosinophils/100 WBC (Bld) 1.9 % Normal . [facility] Comment on above: Performed By: #### C BC, CMP #### [address] #### HBSAB, HCV RIAN, HBCAB, HBSAG, HCV RX PCR #### [facility] , Erythrocyte distribution width (RBC) [Ratio] 14.2 % Normal 11.9-15.3 [facility] Comment on above: Performed By: #### C BC, CMP #### [place] [address] [place] #### HBSAB, HCV RIAN, HBCAB, HBSAG, HCV RX PCR #### [facility] , Hematocrit (Bld) [Volume fraction] 39.4 % Normal 34.0-46.4 [facility] Comment on above: Performed By: #### C BC, CMP #### [address] #### HBSAB, HCV RIAN, HBCAB, HBSAG, HCV RX PCR #### [facility] , Hemoglobin (Bld) [Mass/Vol] 13.2 g/dL Normal 11.8-15.4 [facility] Comment on above: Performed By: #### C BC, CMP #### [facility] [address] [place] [address] [place] #### HBSAB, HCV RIAN, HBCAB, HBSAG, HCV RX PCR #### [facility] , Lymphocytes (Bld) [#/Vol] 3.5 10*3/uL Normal 1.00-4.8 [facility] Comment on above: Performed By: #### C BC, CMP #### [address] #### HBSAB, HCV RIAN, HBCAB, HBSAG, HCV RX PCR #### [facility] , Lymphocytes/100 WBC (Bld) 39.1 % Normal . [facility] Comment on above: Performed By: #### C BC, CMP #### [address] #### HBSAB, HCV RIAN, HBCAB, HBSAG, HCV RX PCR #### [facility] , MCH (RBC) [Entitic mass] 29.3 pg Normal 24.7-34.3 [facility] Comment on above: Performed By: #### C BC, CMP #### [address] #### HBSAB, HCV RIAN, HBCAB, HBSAG, HCV RX PCR #### [facility] , MCV (RBC) [Entitic vol] 87.7 fL Normal 80-100 [facility] Comment on above: Performed By: #### C BC, CMP #### [address] #### HBSAB, HCV RIAN, HBCAB, HBSAG, HCV RX PCR #### [facility] , Mean Corpuscular HGB Conc 33.4 g/dL Normal 32.0-35.0 [facility] Comment on above: Performed By: #### C BC, CMP #### [address] #### HBSAB, HCV RIAN, HBCAB, HBSAG, HCV RX PCR #### [facility] , Monocytes (Bld) [#/Vol] 0.7 10*3/uL Normal 0.0-0.8 [facility] Comment on above: Performed By: #### C BC, CMP #### [facility] [address] [place] [address] [place] #### HBSAB, HCV RIAN, HBCAB, HBSAG, HCV RX PCR #### [facility] , Monocytes/100 WBC (Bld) 7.4 % Normal . [facility] Comment on above: Performed By: #### C BC, CMP #### [address] #### HBSAB, HCV RIAN, HBCAB, HBSAG, HCV RX PCR #### [facility] , Neutrophils (Bld) [#/Vol] 4.6 10*3/uL Normal 1.8-7.7 [facility] Comment on above: Performed By: #### C BC, CMP #### [facility] [address] [place] [address] #### HBSAB, HCV RIAN, HBCAB, HBSAG, HCV RX PCR #### [facility] , Neutrophils/100 WBC (Bld) 50.8 % Normal . [facility] Comment on above: Performed By: #### C BC, CMP #### [facility] [address] [place] [address] #### HBSAB, HCV RIAN, HBCAB, HBSAG, HCV RX PCR #### [facility] , Nucleated RBC/100 WBC (Bld) [Ratio] 0.2 % Normal 0-0.5 [facility] Comment on above: Performed By: #### C BC, CMP #### [facility] [address] [place] [address] [place] #### HBSAB, HCV RIAN, HBCAB, HBSAG, HCV RX PCR #### [facility] , Platelet mean volume (Bld) [Entitic vol] 9.2 fL Normal 6.3-10.7 [facility] Comment on above: Performed By: #### C BC, CMP #### [address] #### HBSAB, HCV RIAN, HBCAB, HBSAG, HCV RX PCR #### [facility] , Platelets (Bld) [#/Vol] 328 10*3/uL Normal 150-450 [facility] Comment on above: Performed By: #### C BC, CMP #### [facility] [address] [place] [address] [place] #### HBSAB, HCV RAIN, HBCAB, HBSAG, HCV RX PCR #### [facility] , RBC (Bld) [#/Vol] 4.50 10*6/uL Normal 3.60-5.00 [facility] Comment on above: Performed By: #### C BC, CMP #### [facility] [address] [place] [address] [place] #### HBSAB, HCV RIAN, HBCAB, HBSAG, HCV RX PCR #### [facility] , WBC (Bld) [#/Vol] 9.0 10*3/uL Normal 4.5-11.0 [facility] Comment on above: Performed By: #### C BC, CMP #### [facility] [address] [place] [address] [place] #### HBSAB, HCV RIAN, HBCAB, HBSAG, HCV RX PCR #### [facility] , Comprehensive Metabolic Pane roxy 04-07-2021 Albumin [Mass/Vol] 3.7 g/dL Normal 3.2-5.5 [facility] Comment on above: Performed By: #### C BC, CMP #### [facility] [address] [place] [address] [place] #### HBSAB, HCV RIAN, HBCAB, HBSAG, HCV RX PCR #### [facility] , Albumin/Globulin [Mass ratio] 1.0 {ratio} Normal [facility] Comment on above: Performed By: #### C BC, CMP #### [facility] [address] [place] [address] [place] #### HBSAB, HCV RIAN, HBCAB, HBSAG, HCV RX PCR #### [facility] , ALP [Catalytic activity/Vol] 90 U/L Normal 32-92 [facility] Comment on above: Result Comment: PERF ORMED BY: [place] [address] PATHOLOGIST POWERHOUSE ATTENDANT MARLEY CALLES M.D. Performed By: #### C BC, CMP #### [address] #### HBSAB, HCV RIAN, HBCAB, HBSAG, HCV RX PCR #### [facility] , ALT [Catalytic activity/Vol] 27 U/L Normal 10-60 [facility] Comment on above: Performed By: #### C BC, CMP #### [address] #### HBSAB, HCV RIAN, HBCAB, HBSAG, HCV RX PCR #### [facility] , AST [Catalytic activity/Vol] 23 U/L Normal 10-42 [facility] Comment on above: Performed By: #### C BC, CMP #### [address] #### HBSAB, HCV RIAN, HBCAB, HBSAG, HCV RX PCR #### [facility] , Bilirubin [Mass/Vol] 0.4 mg/dL Normal 0.3-1.2 [facility] Comment on above: Performed By: #### C BC, CMP #### [facility] [address] [place] [address] [place] #### HBSAB, HCV RIAN, HBCAB, HBSAG, HCV RX PCR #### [facility] , Calcium [Mass/Vol] 9.2 mg/dL Normal 8.2-10.2 [facility] Comment on above: Performed By: #### C BC, CMP #### [place] [address] [place] #### HBSAB, HCV RIAN, HBCAB, HBSAG, HCV RX PCR #### [facility] , Chloride [Moles/Vol] 100 mmol/L Normal 95-114 [facility] Comment on above: Performed By: #### C BC, CMP #### [facility] [address] [place] [address] [place] #### HBSAB, HCV RIAN, HBCAB, HBSAG, HCV RX PCR #### [facility] , CO2 [Moles/Vol] 21.6 mmol/L Low 22.0-30.0 [facility] Comment on above: Performed By: #### C BC, CMP #### [address] #### HBSAB, HCV RIAN, HBCAB, HBSAG, HCV RX PCR #### [facility] , Creatinine [Mass/Vol] 0.50 mg/dL Normal 0.44-1.03 [facility] Comment on above: Performed By: #### C BC, CMP #### [facility] [address] [place] [address] [place] #### HBSAB, HCV RIAN, HBCAB, HBSAG, HCV RX PCR #### [facility] , Estimated GFR ( Rafaela > 60 [facility] Comment on above: Result Comment: GFR estimated reference range: According to KDOQI guidelines, <60 ml/min/1.73m2 is sufficient to diagnose a patient with chronic kidney disease. Performed By: #### C BC, CMP #### [facility] [address] [place] [address] [place] #### HBSAB, HCV RIAN, HBCAB, HBSAG, HCV RX PCR #### [facility] , Estimated GFR (Non- Am > 60 [facility] Comment on above: Performed By: #### C BC, CMP #### [facility] [address] [place] [address] [place] #### HBSAB, HCV RIAN, HBCAB, HBSAG, HCV RX PCR #### [facility] , Globulin (S) [Mass/Vol] 3.8 g/dL [facility] Comment on above: Performed By: #### C BC, CMP #### [facility] [address] [place] [address] [place] #### HBSAB, HCV RIAN, HBCAB, HBSAG, HCV RX PCR #### [facility] , Glucose [Mass/Vol] 96 mg/dL Normal 70-100 [facility] Comment on above: Result Comment: [facility] Glucose Reference Range is dependent on time and content of last meal. Glucose of more than 200 mg/dL in a nonstressed, ambulatory subject supports the diagnosis of Diabetes Mellitus. ADA recommended reference range Performed By: #### C BC, CMP #### [facility] [address] [place] [address] [place] #### HBSAB, HCV RIAN, HBCAB, HBSAG, HCV RX PCR #### [facility] , Potassium [Moles/Vol] 3.7 mmol/L Normal 3.5-5.1 [facility] Comment on above: Performed By: #### C BC, CMP #### [address] #### HBSAB, HCV RIAN, HBCAB, HBSAG, HCV RX PCR #### [facility] , Protein [Mass/Vol] 7.5 g/dL Normal 6.1-7.9 [facility] Comment on above: Performed By: #### C BC, CMP #### [facility] [address] [place] [address] [place] #### HBSAB, HCV RIAN, HBCAB, HBSAG, HCV RX PCR #### [facility] , Sodium [Moles/Vol] 132 mmol/L Low 136-146 [facility] Comment on above: Performed By: #### C BC, CMP #### [facility] [address] [place] [address] [place] #### HBSAB, HCV RIAN, HBCAB, HBSAG, HCV RX PCR #### [facility] , Urea nitrogen [Mass/Vol] 9 mg/dL Normal 9-23 [facility] Comment on above: Performed By: #### C BC, CMP #### [address] #### HBSAB, HCV RIAN, HBCAB, HBSAG, HCV RX PCR #### [facility] , HCG,Urineon 04-07-2021 Beta HCG ( test) Ql (U) Negative Normal [facility] Comment on above: Result Comment: PERF ORMED BY: [place] [address] PATHOLOGIST POWERHOUSE ATTENDANT MARLEY CALLES M.D. Performed By: #### U HCG #### [address] Hep C Ab wRfx to Qnt PCRon 0 04-07-2021 HCV Log10 5.889 Normal . [facility] Comment on above: Result Comment: Resu lt Units: log10 IU/mL Performed By: #### C BC, CMP #### [address] #### HBSAB, HCV RIAN, HBCAB, HBSAG, HCV RX PCR #### [facility] , Hepatitis C Quantitation [id number] Normal . [facility] Comment on above: Performed By: #### C BC, CMP #### [address] #### HBSAB, HCV RIAN, HBCAB, HBSAG, HCV RX PCR #### [facility] , Hepatitis C Virus Antibody >11.0 High 0.0-0.9 [facility] Comment on above: Performed By: #### C BC, CMP #### [facility] [address] [place] [address] #### HBSAB, HCV RIAN, HBCAB, HBSAG, HCV RX PCR #### [facility] , Interpretation Normal . [facility] Comment on above: Result Comment: Posi tive HCV antibody screen with the presence of HCV RNA is consistent with active infection. Performed at: [address] [id number] Skip Pit Worker: Jose D Ibanez PhD, Phone: [phone] Performed at: [address] [id number] Skip Pit Worker: Praveen Lopez MD, Phone: [phone] Performed By: #### C BC, CMP #### [place] [address] [place] #### HBSAB, HCV RIAN, HBCAB, HBSAG, HCV RX PCR #### [facility] , Test Information: Normal . [facility] Comment on above: Result Comment: The quantitative range of this assay is 15 IU/mL to 100 million IU/mL. Performed By: #### C BC, CMP #### [address] #### HBSAB, HCV RIAN, HBCAB, HBSAG, HCV RX PCR #### [facility] , Hep C Genotyping Non Reflexo n 04-07-2021 Hepatitis C Genotype 1a Normal . [facility] Comment on above: Performed By: #### C BC, CMP #### [address] #### HBSAB, HCV RIAN, HBCAB, HBSAG, HCV RX PCR #### [facility] , Please Note: Normal . [facility] Comment on above: Result Comment: This test was developed and its performance characteristics determined by [facility]. It has not been cleared or approved by the U.S. Food and Drug Administration. The FDA has determined that such clearance or approval is not necessary. This test is used for clinical purposes. It should not be regarded as investigational or for research. Performed at: [address] [id number] Skip Pit Worker: Praveen Lopez MD, Phone: [phone] PERFORMED BY: [place] [address] PATHOLOGIST POWERHOUSE ATTENDANT JIANLAN SUN M.D. Performed By: #### C BC, CMP #### [facility] [address] [place] [address] #### HBSAB, HCV RIAN, HBCAB, HBSAG, HCV RX PCR #### [facility] , Hepatitis B Core Antibodyon 04-07-2021 Hepatitis B Core Antibody Positive Critically abnormal Negative [facility] Comment on above: Result Comment: Perf ormed at: CB - [facility] [address] [id number] Skip Pit Worker: Jose D Ibanez PhD, Phone: [phone] Performed By: #### C BC, CMP #### [address] #### HBSAB, HCV RIAN, HBCAB, HBSAG, HCV RX PCR #### [facility] , Hepatitis B Surface Antibody on 04-07-2021 Hepatitis B Surface Antibody Reactive Normal . [facility] Comment on above: Result Comment: Non Reactive: Inconsistent with immunity, less than 10 mIU/mL Reactive: Consistent with immunity, greater than 9.9 mIU/mL Performed By: #### C BC, CMP #### [facility] [address] [place] [address] #### HBSAB, HCV RIAN, HBCAB, HBSAG, HCV RX PCR #### [facility] , Hepatitis B Surface Antigeno n 04-07-2021 HBsAg Screen Negative Normal Negative [facility] Comment on above: Performed By: #### C BC, CMP #### [facility] [address] [place] [address] #### HBSAB, HCV RIAN, HBCAB, HBSAG, HCV RX PCR #### [facility] , CBC WITH DIFFERENTIALon 07-18 ABSOLUTE MONO 0.5 10 3/uL Normal 0.2-0.6 [employer] Comment on above: Performed By: #### 4 [id number] ####[facility] [id number] [place], [place] [phone] ABSOLUTE NEUT 5.6 10 3/uL Normal 2.4-6.6 [facility] Comment on above: Performed By: #### 4 [id number] ####[facility] [address] [phone] Basophils Auto #/vol (Bld) 0.0 10 3/uL Normal 0.0-0.1 [facility] Comment on above: Performed By: #### 4 [id number] ####[facility] [address] [phone] Basophils/100 WBC Auto (Bld) 0.4 % Normal [facility] Comment on above: Performed By: #### 4 [id number] ####[facility] [address] [phone] Eosinophils 0.0 10 3/uL Low 0.1-0.3 [facility] Comment on above: Performed By: #### 4 [id number] ####[facility] [address] [phone] Eosinophils/100 leukocytes 0.2 % Normal [facility] Comment on above: Performed By: #### 4 [id number] ####[facility] [address] [phone] Erythrocyte distribution width Auto Ratio (RBC) 13.5 % Normal 11.5-14.5 [facility] Comment on above: Performed By: #### 4 [id number] ####[facility] [address] [phone] Erythrocytes (RBC) 4.78 x10 6/uL Normal 3.60-5.20 [facility] Comment on above: Performed By: #### 4 [id number] ####[facility] [address] [phone] Hematocrit (HCT) 43.0 % Normal 33.6-46.8 [facility] Comment on above: Performed By: #### 4 [id number] ####[facility] [address] [phone] Hemoglobin mass conc (Bld) 14.7 g/dL Normal 11.7-15.[address] [facility] [place] [place] Comment on above: Performed By: #### 4 [id number] ####[facility] [address] [phone] Lymphocytes 2.3 10 3/uL Normal 1.2-3.[address] [facility] [place] [place] Comment on above: Performed By: #### 4 [id number] ####[facility] [address] [phone] Lymphocytes/100 leukocytes 27.3 % Normal [facility] [place] [place] Comment on above: Performed By: #### 4 [id number] ####[address] [phone] MCH 30.8 pg Normal 27.5-32.[address] [facility] [place] [place] Comment on above: Performed By: #### 4 [id number] ####[address] [phone] MCHC mass conc (RBC) 34.2 g/dL Normal 30.7-35.5 [facility] Comment on above: Performed By: #### 4 [id number] ####[address] [phone] MCV 90.0 fL Normal 80.2-99.[address] [facility] [place] [place] Comment on above: Performed By: #### 4 [id number] ####[facility] [address] [phone] Monocytes/100 leukocytes 6.0 % Normal [facility] [place] [place] Comment on above: Performed By: #### 4 [id number] ####[address] [phone] Neutrophils/100 leukocytes 66.1 % Normal [facility] [place] [place] Comment on above: Performed By: #### 4 [id number] ####[facility] [address] [phone] Platelets 289.0 x10 3/uL Normal 150.0-400.[address] [facility] [place] [place] Comment on above: Performed By: #### 4 [id number] ####[facility] [address] [phone] WBC (Leukocytes) 8.4 x10 3/uL Normal 4.3-10.3 [facility] Comment on above: Performed By: #### 4 [id number] ####[address] [phone] CHEM 808-10-2017 Calcium 9.7 mg/dL Normal 8.4-10.[address] [facility] [place] [place] Comment on above: Performed By: #### 4 [id number] ####[facility] [address] [phone] CO2 27 mmol/L Normal 22-[address] [facility] [place] [place] Comment on above: Performed By: #### 4 [id number] ####[facility] [address] [phone] Glucose mass conc 113 mg/dL High 65-[address] [facility] [place] [place] Comment on above: Performed By: #### 4 [id number] ####[facility] [address] [phone] Urea nitrogen 13 mg/dL Normal 8-[address] [facility] [place] [place] Comment on above: Performed By: #### 4 [id number] ####[facility] [address] [phone] Creatinine 0.60 mg/dL Normal 0.52-1.[address] [facility] [place] [place] Comment on above: Performed By: #### 4 [id number] ####[facility] [address] [phone] Chloride 104 mmol/L Normal 96-[address] [facility] [place] [place] Comment on above: Performed By: #### 4 [id number] ####[facility] [address] [phone] Potassium molar conc 3.9 mmol/L Normal 3.6-5.1 [facility] Comment on above: Performed By: #### 4 [id number] ####[facility] [address] [phone] Sodium 143 mmol/L Normal 135-147 [facility] Comment on above: Performed By: #### 4 [id number] ####[facility] [address] [phone] GFRon 08-10-2017 eGFR (MDRD) mL/min/{1.73_m2} Normal [facility] Comment on above: Result Comment: To e stimate the GFR for Americans, multiply the resultprovided by 1.21.Population mean GFR = 107 ml/min/1.73 sq.m. for ages 30-39 yrsFive stages of CKD and GFR for each stage:Stage 1 GFR >=90Stage 2 GFR 60-89Stage 3 GFR 30-59Stage 4 GFR 15-29Stage 5 GFR <15 - Performed By: #### G FR1 ####[facility] [address] [phone] UR DRUG SCREEN-7 PANELon PCP NOT DETECTED Normal CUTOFF <25 [facility] Comment on above: Performed By: #### 4 [id number] ####[facility] [address] [phone] COCAINE/BE NOT DETECTED Normal CUTOFF <300 [facility] Comment on above: Performed By: #### 4 [id number] ####[facility] [address] [phone] MARIJUANA/THC NOT DETECTED Normal CUTOFF <50 [facility] Comment on above: Performed By: #### 4 [id number] ####[facility] [address] [phone] Urine, opiates presence NOT DETECTED Normal CUTOFF <300 [facility] Comment on above: Performed By: #### 4 [id number] ####[facility] [address] [phone] BARBITURATE NOT DETECTED Normal CUTOFF <[address] [facility] [place] [place] Comment on above: Performed By: #### 4 [id number] ####[address] [phone] AMPHETAMINES/METH NOT DETECTED Normal CUTOFF <1000 [facility] Comment on above: Performed By: #### 4 [id number] ####[address] [phone] BENZODIAZEPINE NOT DETECTED Normal CUTOFF <[address] [facility] [place] [place] Comment on above: Performed By: #### 4 [id number] ####[address] [phone] TOX MESSAGE see below [facility] Comment on above: Result Comment: Note s: 1. SCREENING RESULTS SHOULD BE CONSIDERED PRESUMPTIVE UNLESS THE PRESENCE OF THE ANALYTE HAS BEEN CONFIRMED BY A REFERENCE LAB. 2. ALL DRUG GROUPS ARE ANALYZED ON URINE. Performed By: #### 4 [id number] ####[facility] [employer] [address] [phone] URINALYSISon 08-10-2017 AMORPHOUS CRYSTAL 1+ [facility] Comment on above: Performed By: #### 4 [id number] ####[facility] [employer] [address] [phone] Bilirubin Ql (U) Negative Normal Negative [facility] [place] [place] Comment on above: Performed By: #### 4 [id number] ####[facility] [employer] [address] [phone] CULTURE SETUP Normal [facility] [place] [place] Comment on above: Performed By: #### 4 [id number] ####[address] [phone] LEUKOESTERASE Trace Abnormal Negative [facility] [place] [place] Comment on above: Performed By: #### 4 [id number] ####[facility] [address] [phone] MUCOUS-URINE Rare Normal [facility] [place] [place] Comment on above: Performed By: #### 4 [id number] ####[facility] [address] [phone] OCCULT BLOOD Negative Normal Negative [facility] Comment on above: Performed By: #### 4 [id number] ####[facility] [address] [phone] Urine, appearance Cloudy Normal [facility] Comment on above: Performed By: #### 4 [id number] ####[facility] [address] [phone] Urine, color Yellow Normal [facility] Comment on above: Performed By: #### 4 [id number] ####[facility] [address] [phone] Urine, erythrocytes in sediment by area 2 /[HPF] Normal 0-5 [facility] Comment on above: Performed By: #### 4 [id number] ####[facility] [address] [phone] Urine, glucose presence Negative Normal Negative [facility] Comment on above: Performed By: #### 4 [id number] ####[facility] [address] [phone] Urine, ketones presence Negative Normal Negative [facility] Comment on above: Performed By: #### 4 [id number] ####[address] [phone] Urine, leukocytes in sedmiment 6 /[HPF] High 0-5 [facility] Comment on above: Performed By: #### 4 [id number] ####[facility] [address] [phone] Urine, nitrite presence Negative Normal Negative [facility] Comment on above: Performed By: #### 4 [id number] ####[facility] [address] [phone] Urine, pH 8.0 [pH] Normal [facility] Comment on above: Performed By: #### 4 [id number] ####[facility] [address] [phone] Urine, protein presence Negative Normal Negative [facility] [place] [place] Comment on above: Performed By: #### 4 [id number] ####[facility] [address] [phone] Urine, specific gravity 1.016 Normal 1.003-1.[address] [facility] [place] [place] Comment on above: Performed By: #### 4 [id number] ####[facility] [address] [phone] Urine, urobilinogen Negative Normal <2.0 [facility] Comment on above: Performed By: #### 4 [id number] ####[facility] [address] [phone] URINE SOURCE Not Specified Normal [facility] [place] [place] Comment on above: Performed By: #### 4 [id number] ####[address] [phone] URINE CULTUREon 08-10-2017 Urine culture, bacteria NO GROWTH--PRELIMINARY REPORT. NO GROWTH--FINAL REPORT. Normal [facility] [place] [place] Comment on above: Order Comment: Site: Not Specified Performed By: #### 4 [id number] ####[address] [phone] URINE PREG TESTon 08-10-2017 URINE PREG TEST Negative Normal [facility] [place] [place] Comment on above: Performed By: #### 4 [id number] ####[facility] [address] [phone] XR ABDOMEN 2 VIEWSon 018 XR ABDOMEN [...] GI tract on the current study. Normal [facility] XR CHEST PA AND LATERALon XR CHEST [...] are without acute process.IMPRESSION:No acute process. Normal [facility] CT Head WOon 07-27-2017 CT Head WO [facility] Name: FLORES HOUSER [address] [place] [address] Phys: [place] [address] : 1985 Age: 31 Acct: [id number] Loc: MRN/Unit No.: [id number] Status: REG ER Exam Date: 07/26/17 Accession Number: [id number] Exam: [id number] CT/CT Head WO CT Head WO CT [...] FAMILY DOCTOR Technologist: GINNY MCGILL Dictated By: SE JARRETTUNG Art Signed Date/Time: 07/26/17, 2313 Dictated Date/Time: 07/26/17 1834 [employer] Operator: YURIY ASTORGA Printed Date/Time: , This report was electronically signed in another vendor system Normal [facility] Culture Urineon 07-27-2017 Culture Urine Bacteria Ur Cult: GROSS CONTAMINATION-SUGGEST REPEAT IF UTI STILL SUSPECTED Normal [facility] Comment on above: Performed By: #### C BCD ####[facility] Xzc[address] [place], [place] [phone] ,Phill Talavera M.D. FCAP, FASCP Acetaminophen Levelon 2017 Acetaminophen mass conc < 5.0 Low 10-30 [facility] Comment on above: Result Comment: Less than measurable rangeTHERAPEUTIC: 10-30 UG/MLPOSSIBLE TOXICITY: >100 UG/MLPROBABLE TOXICITY: >200 UG/ML Performed By: #### A CHARLENE, GORDO ####[facility] Meb[address] [place] [address] ,Phill Talavera M.D. FCAP, FASCP CBC With Differentialon 07-17 CBC Manual Diff NO Normal [facility] Comment on above: Performed By: #### C BCD ####[facility] Yxv[address] [place] [address] ,Phill Talavera M.D. FCAP, FASCP Basophils Auto #/vol (Bld) 0.06 10:3/uL Normal 0.02-0.2 [facility] Comment on above: Performed By: #### C BCD ####[facility] Okr[address] [place] [address] ,Phill Talavera M.D. FCAP, FASCP Basophils/100 WBC Auto (Bld) 0.6 % Normal 0-1.0 [facility] Comment on above: Performed By: #### C BCChaz ####[facility] Jzl[address] [place], [place] [phone] ,Phill Talavera M.D. FCAP, FASCP Eosinophils 0.11 10:3/uL Normal 0-0.5 [facility] Comment on above: Performed By: #### C BCD ####[place] [address] [place], [place] [phone] ,Phill Talavera M.D. FCAP, FASCP Eosinophils/100 leukocytes 1.2 % Normal 1.0-3.0 [facility] Comment on above: Performed By: #### C ELSIE ####[facility] [place] [address] [phone] ,Phill Talavera M.D. FCAP, FASCP Erythrocytes (RBC) 4.82 10:6/uL Normal 3.80-5.20 [facility] Comment on above: Performed By: #### C BCD ####[facility] [place], [place] 9453850 ,Gustavo ButlerAP, FASCP Hematocrit (HCT) 43.9 % Normal 35.0-47.0 [facility] Comment on above: Performed By: #### C BCD ####[facility] Zur[address] [place] [address] ,Phill Talavera M.D. FCAP, FASCP Hemoglobin mass conc (Bld) 14.5 g/dL Normal 11.7-15.7 [facility] Comment on above: Performed By: #### C BCD ####[facility] Jzx[address] [place], [place] [phone] ,Phill Talavera M.D. FCAP, FASCP Lymphocytes 2.34 10:3/uL Normal 1.5-4.0 [facility] Comment on above: Performed By: #### C ELSIE ####[facility] Nsf[address] [place], [place] 9887950 ,Phill Talavera M.D. FCAP, FASCP Lymphocytes/100 leukocytes 24.5 % Normal 20.0-40.0 [facility] Comment on above: Performed By: #### C ELSIE ####[facility] Emu[address] [place], [place] 7355050 ,Phill Talavera M.D. FCAP, FASCP MCH 30.1 pg Normal 27.0-40.0 [facility] Comment on above: Performed By: #### C ELSIE ####[facility] [place] [address] ,Phill Talavera M.D. FCAP, FASCP MCV 91.1 CU uM Normal 80.0-100.0 [facility] Comment on above: Performed By: #### C ELSIE ####[facility] Qbw[address] [place], [place] 7791150 ,Phill Talavera M.D. FCAP, FASCP Mean Corpusc Hgb Concentration 33.0 G/DL Normal 31.0-36.0 [facility] Comment on above: Performed By: #### C BCD ####[facility] Nbn[address] [place], [place] [phone] ,Phill Talavera M.D. FCAP, FASCP Monocytes 0.84 10:3/uL High 0.2-0.8 [facility] Comment on above: Performed By: #### C BCD ####[facility] Yks[address] [place], [place] 6145750 ,Phill Talavera M.D. FCAP, FASCP Monocytes/100 leukocytes 8.8 % Normal 4.0-10.0 [facility] Comment on above: Performed By: #### C BCD ####[facility] Pur[address] [place], [place] 1968650 ,Phill Talavera M.D. FCAP, FASCP Neutrophils 6.17 10:3/uL Normal 2.0-7.0 [facility] Comment on above: Performed By: #### C BCD ####[facility] [place], [place] [phone] ,Phill Talavera M.D. FCAP, FASCP Neutrophils/100 leukocytes 64.5 % High 54.0-62.0 [facility] Comment on above: Performed By: #### C BCD ####[facility] Ldq[address] [place], [place] 2940150 ,Phill Talavera M.D. FCAP, FASCP Nucleated erythrocytes 0 10:3/uL Normal -0 [facility] Comment on above: Performed By: #### C BCD ####[facility] Khn[address] [place], [place] 7178550 ,Phill Talavera M.D. FCAP, FASCP Nucleated erythrocytes 0 /100WBC Normal -0 [facility] Comment on above: Performed By: #### C BCD ####[facility] Nep[address] [facility] [place] [phone] ,Phill Talavera M.D. FCAP, FASCP Platelets 285 10:3/uL Normal 130-440 [facility] Comment on above: Performed By: #### C BCD ####[facility] Lkx[address] [place], [place] 6374650 ,Phill Talavera M.D. FCAP, FASCP Red Cell Distribution 13.2 Normal 11.5-14.5 [facility] Comment on above: Performed By: #### C BCD ####[facility] Fhi[address] [place], [place] 0074350 ,Phill Talavera M.D. FCAP, FASCP WBC (Leukocytes) 9.6 10:3/uL Normal 3.5-11.0 [facility] Comment on above: Performed By: #### C BCD ####[facility] Syj[address] [place], [place] 8635850 ,Phill Talavera M.D. FCAP, FASCP Cardiac Troponin Ton 018 Troponin T.cardiac mass conc ug/L Normal 0-0.04648 [facility] Comment on above: Result Comment: Less than measurable range Performed By: #### A DP, MG, TPNT, E ####[address] [phone] ,Gustavo ButlerAP, FASCP Comprehensive Metabolic Pane roxy 07-26-2017 Albumin 4.2 g/dL Normal 4.0-4.9 [facility] Comment on above: Performed By: #### A DP, MG, TPNT, E ####[facility] Z[address] [place] [address] [phone] ,Gustavo ButlerAP, FASCP Alkaline phosphatase (ALP) 63 U/L Normal 35-104 [facility] Comment on above: Performed By: #### A DP, MG, TPNT, E ####[facility] [address] [place] [address] [phone] ,Gustavo ButlerAP, FASCP ALT Alanine Transamine 24 U/L Normal 5-33 [facility] Comment on above: Performed By: #### A DP, MG, TPNT, E ####[facility] Q[address] [place] [address] ,Phill Talavera M.D. FCAP, FASCP Anion gap 21 mmol/L High 9-18 [facility] Comment on above: Performed By: #### A DP, MG, TPNT, E ####[facility] Y[address] [place] [address] ,Phill Talavera M.D. FCAP, FASCP AST Aspartate Transaminase 25 U/L Normal 5-32 [facility] Comment on above: Performed By: #### A DP, MG, TPNT, E ####[address] [address] ,Phill Talavera M.D. FCAP, FASCP Bilirubin (total) 0.3 mg/dL Normal 0.15-1.2 [facility] Comment on above: Performed By: #### A DP, MG, TPNT, E ####[address] [address] ,Phill Talavera M.D. FCAP, FASCP BUN (urea nitrogen) 17.2 mg/dL Normal 6-20 [facility] Comment on above: Performed By: #### A DP, MG, TPNT, E ####[address] [address] ,Gustavo ButlerAP, FASCP Calcium 9.6 mg/dL Normal 8.6-10.0 [facility] Comment on above: Performed By: #### A DP, MG, TPNT, E ####[address] [address] ,Phill Talavera M.D. FCAP, FASCP Chloride 99 mmol/L Normal 98-107 [facility] Comment on above: Performed By: #### A DP, MG, TPNT, E ####[place] [address] [place] [address] ,Phill Talavera M.D. FCAP, FASCP CO2 19 mmol/L Low 22-29 [facility] Comment on above: Performed By: #### A DP, MG, TPNT, E ####[facility] Siw[address] [place] [address] ,Phill Talavera M.D. FCAP, FASCP Creatinine 0.80 mg/dL Normal 0.51-0.95 [facility] Comment on above: Performed By: #### A DP, MG, TPNT, E ####[facility] Jrb[address] [place] [address] ,Phill Talavera M.D. FCAP, FASCP eGFR (non-black) mL/min/{1.73_m2} Normal [facility] Comment on above: Result Comment: THE GFR IS ESTIMATED USING THE MDRD STUDY EQUATION.*NOTE* IF THE RACE OF THE PATIENT WAS UNKNOWN AT THE TIME OFREGISTRATION, AND THE PATIENT IS , MULTIPLYTHE EGFR RESULT PROVIDED BY 1.21.NORMAL: EGFR >60.0 Performed By: #### A DP, MG, TPNT, E ####[facility] Qve[address] [place] [address] ,Phill Talavera M.D. FCAP, FASCP Glucose mass conc 106 mg/dL High 70-100 [facility] Comment on above: Result Comment: INTR EPRETATION FOR FASTING BLOOD GLUCOSE:70- 100 mg/dl NORMAL GLUCOSE [id number] mg/dl IMPAIRED FASTING GLUCOSE (PRE-DIABETES)>125 mg/dl DIABETES - ON MORE THAN ONE TESTING Performed By: #### A DP, MG, TPNT, E ####[facility] Emb[address] [place] [address] ,Phill Talavera M.D. FCAP, FASCP Potassium molar conc 3.5 mmol/L Low 3.6-5.0 [facility] Comment on above: Performed By: #### A DP, MG, TPNT, E ####[facility] [address] [place] [address] [phone] ,Gustavo ButlerAP, FASCP Protein 7.6 g/dL Normal 6.4-8.3 [facility] Comment on above: Performed By: #### A DP, MG, TPNT, E ####[address] [address] ,Phill Talavera M.D. FCAP, FASCP Sodium 139 mmol/L Normal 136-145 [facility] Comment on above: Performed By: #### A DP, MG, TPNT, E ####[address] [phone] ,Phill Talavera M.D. FCAP, FASCP Drug Screen Urine 11 panelon 07-26-2017 Alcohol Screen Urine Negative Normal NEG [facility] Comment on above: Performed By: #### D LEWIS ####[address] [phone] ,Phill Talavera M.D. FCAP, FASCP Amphetamine Screen Urine Positive Abnormal NEG [facility] Comment on above: Performed By: #### D LEWIS ####[facility] [address] [place] [address] [phone] ,Phill Talavera M.D. FCAP, FASCP Barbiturate Screen Urine Negative Normal NEG [facility] Comment on above: Performed By: #### D LEWIS ####[facility] [address] [place] [address] [phone] ,Phill Talavera M.D. FCAP, FASCP Benzodiazapine Screen Urine Negative Normal NEG [facility] Comment on above: Performed By: #### D LEWIS ####[facility] Ldf781 [place] [address] ,Phill Talavera M.D. FCAP, FASCP Cocaine Screen Urine Negative Normal NEG [facility] Comment on above: Performed By: #### D LEWIS ####[facility] Uha168 [place] [address] ,Phill Talavera M.D. FCAP, FASCP Marijuana Screen Urine Positive Abnormal NEG [facility] Comment on above: Performed By: #### D LEWIS ####[facility] [address] [place] [address], [place] [address] ,Phill Talavera M.D. FCAP, FASCP Methadone Screen Urine Negative Normal [facility] Comment on above: Performed By: #### D LEWIS ####[facility] [address] [place] [address], [place] [address] ,Gustavo ButlerAP, FASCP Opiate Screen Urine Negative Normal NEG [facility] Comment on above: Performed By: #### D LEWIS ####[facility] Cgc[address] [place] [address] ,Phill Talavera M.D. FCAP, FASCP Oxycodone Urine Negative Normal NEG [facility] Comment on above: Performed By: #### D LEWIS ####[facility] Uhg[address] [place] [address] ,Phill Talavera M.D. FCAP, FASCP Phencyclidine Screen Urine Negative Normal NEG [facility] Comment on above: Performed By: #### D LEWIS ####[facility] Sze[address] [place] [address] ,Phill Talavera M.D. FCAP, FASCP Propoxyphene Screen Urine Negative Normal NEG [facility] Comment on above: Performed By: #### D LEWIS ####[facility] Hqd[address] [place], [place] [phone] ,Phill Talavera M.D. FCAP, FASCP Ethanol Bloodon 07-26-2017 Ethanol Blood Normal 0-99 [facility] Comment on above: Result Comment: Resu lt is less than minimum detection limit Performed By: #### A DP, MG, TPNT, E ####[facility] [address] [place] [address] [phone] ,Phill Talavera M.D. FCAP, FASCP Magnesium Bloodon 07-26-2017 Magnesium 2.0 MG/DL Normal 1.6-2.6 [facility] Comment on above: Performed By: #### A DP, MG, TPNT, E ####[address] [id number] ,Gustavo Butler, FASCP Test Urineon 07-26 HCG ( test) Ql (U) Negative Normal NEGATIVE [facility] Comment on above: Order Comment: Sourc e Of Urine Specimen? Clean Catch` Performed By: #### P TU, U REFLEX ####[address] [phone] ,Gustavo Butler, FASCP Salicylate Levelon 8 Salicylate Level < 0.3 Low 3-10 [facility] Comment on above: Result Comment: Less than measurable range Performed By: #### A CETA, GORDO ####[facility] [address] [place] [address] [phone] ,Phill Talavera M.D. FCAP, FASCP Urinalysis with Reflex Cultu reon 07-26-2017 Calcium 20-30 Abnormal 0-5 [facility] Comment on above: Order Comment: Sourc e Of Urine Specimen? Clean Catch` Performed By: #### P TU, U REFLEX ####[facility] Cnv[address] [place] [address] ,Phill Talavera M.D. FCAP, FASCP Hyaline Casts 0-2 Normal 0-2 [facility] Comment on above: Order Comment: Sourc e Of Urine Specimen? Clean Catch` Performed By: #### P TU, U REFLEX ####[facility] [address] [place] [address] ,Phill Talavera M.D. FCAP, FASCP Is a Culture Indicated? CULTURE ORDERED Normal [facility] Comment on above: Order Comment: Sourc e Of Urine Specimen? Clean Catch` Performed By: #### P TU, U REFLEX ####[facility] [address] [place] [address] ,Phill Talavera M.D. FCAP, FASCP Urine, mucus presence in sediment SMALL Normal NONE-SMALL [facility] Comment on above: Order Comment: Sourc e Of Urine Specimen? Clean Catch` Performed By: #### P TU, U REFLEX ####[facility] Y[address] [place] [address] ,Phill Talavera M.D. FCAP, FASCP Bilirubin Ql (U) Positive Abnormal NEGATIVE [facility] Comment on above: Order Comment: Sourc e Of Urine Specimen? Clean Catch` Result Comment: UNAB LE TO CONFIRM TEST DUE TO THE REAGENT NO LONGER BEINGAVAILABLE; INTERPRET TEST WITH CAUTION. Performed By: #### P TU, U REFLEX ####[facility] [address] [place] [address] ,Phill Talavera M.D. FCAP, FASCP Urine, erythrocytes 0-2 Normal 0-2 [facility] Comment on above: Order Comment: Sourc e Of Urine Specimen? Clean Catch` Performed By: #### P TU, U REFLEX ####[facility] [address] [place] [address] ,Phill Talavera M.D. FCAP, FASCP Urine, leukocytes 5-10 Abnormal 0-5 [facility] Comment on above: Order Comment: Sourc e Of Urine Specimen? Clean Catch` Performed By: #### P TU, U REFLEX ####[facility] Dni[address] [place] [address] ,Phill Talavera M.D. FCAP, FASCP Epithelial Cell 3-5 Abnormal 0-2 [facility] Comment on above: Order Comment: Sourc e Of Urine Specimen? Clean Catch` Performed By: #### P TU, U REFLEX ####[facility] [address] [place] [address] ,Phill Talavera M.D. FCAP, FASCP Character Urine CLOUDY Normal [facility] Comment on above: Order Comment: Sourc e Of Urine Specimen? Clean Catch` Performed By: #### P TU, U REFLEX ####[facility] Agr[address] [place] [address] ,Phill Talavera M.D. FCAP, FASCP Urine, color YELLOW Normal [facility] Comment on above: Order Comment: Sourc e Of Urine Specimen? Clean Catch` Performed By: #### P TU, U REFLEX ####[facility] [address] [place] [address] [place] [address] ,Phill Talavera M.D. FCAP, FASCP Urine, glucose presence Negative Normal NEGATIVE [facility] Comment on above: Order Comment: Sourc e Of Urine Specimen? Clean Catch` Performed By: #### P TU, U REFLEX ####[facility] Tug[address] [place] [address] ,Phill Talavera M.D. FCAP, FASCP Urine, hemoglobin presence 1+ Abnormal NEGATIVE [facility] Comment on above: Order Comment: Sourc e Of Urine Specimen? Clean Catch` Performed By: #### P TU, U REFLEX ####[facility] Pps834 [place] [address] ,Phill Talavera M.D. FCAP, FASCP Urine, ketones presence Negative Normal NEGATIVE [facility] Comment on above: Order Comment: Sourc e Of Urine Specimen? Clean Catch` Performed By: #### P TU, U REFLEX ####[facility] [address] [place] [address] ,Phill Talavera M.D. FCAP, FASCP Urine, leukocyte esterase presence SMALL Abnormal NEGATIVE [facility] Comment on above: Order Comment: Sourc e Of Urine Specimen? Clean Catch` Performed By: #### P TU, U REFLEX ####[facility] [place] [address] ,Phill Talavera M.D. FCAP, FASCP Urine, nitrite presence Negative Normal NEGATIVE [facility] Comment on above: Order Comment: Sourc e Of Urine Specimen? Clean Catch` Performed By: #### P TU, U REFLEX ####[facility] [address] [place] [address] ,Phill Talavera M.D. FCAP, FASCP Urine, pH 6.0 [pH] Normal 5.0-8.5 [facility] Comment on above: Order Comment: Sourc e Of Urine Specimen? Clean Catch` Performed By: #### P TU, U REFLEX ####[facility] [address] [place] [address] ,Phill Talavera M.D. FCAP, FASCP Urine, protein presence 30 MG/DL Abnormal NEGATIVE [facility] Comment on above: Order Comment: Sourc e Of Urine Specimen? Clean Catch` Performed By: #### P TU, U REFLEX ####[facility] [address] [place] [address] ,Phill Talavera M.D. FCAP, FASCP Urine, specific gravity 1.026 Normal 1.005-1.035 [facility] Comment on above: Order Comment: Sourc e Of Urine Specimen? Clean Catch` Performed By: #### P TU, U REFLEX ####[facility] Jjb[address] [place], [place] 4443550 ,Phill Talavera M.D. FCAP, FASCP Urine, urobilinogen 1.0 {Yarely'U}/dL Normal 0-1.0 [facility] Comment on above: Order Comment: Sourc e Of Urine Specimen? Clean Catch` Performed By: #### P TU, U REFLEX ####[facility] Xoi[address] [place], [place] [id number] ,Phill Talavera M.D. FCAP, FASCP Vital Signs Date Time Vital Sign Value Performing Clinician Facility 10-11-2023 14:38-0400 Body height 172.72 cm [facility] 10-11-2023 14:38-0400 Body mass index (BMI) [Ratio] 33.3 kg/m2 [facility] 10-11-2023 14:38-0400 Body temperature 97.8 [degF] [facility] 10-11-2023 14:38-0400 Body weight 99.33 kg [facility] 10-11-2023 14:38-0400 Diastolic blood pressure 72 mm[Hg] [facility] 10-11-2023 14:38-0400 Heart rate 88 /min [facility] 10-11-2023 14:38-0400 Respiratory rate 16 /min [facility] 10-11-2023 14:38-0400 SaO2% (BldA) [Mass fraction] 98 % [facility] 10-11-2023 14:38-0400 Systolic blood pressure 116 mm[Hg] [facility] 08-26-2023 10:07-0400 Body temperature 100.04 [degF] Lance Cortes [facility] 08-26-2023 10:07-0400 Diastolic blood pressure 94 mm[Hg] Lance Cortes [facility] 08-26-2023 10:07-0400 Heart rate 90 /min Lance Cortes [facility] 08-26-2023 10:07-0400 Respiratory rate 20 /min Lance Corets [facility] 08-26-2023 10:07-0400 SaO2% (BldA) [Mass fraction] 95 % Lance Cortes [facility] 08-26-2023 10:07-0400 Systolic blood pressure 130 mm[Hg] Lance Cortes [facility] 08-22-2023 16:57-0400 Blood Pressure Location Matthew Robles [facility] 08-22-2023 16:57-0400 Body temperature 98.24 [degF] Matthew Robles [facility] 08-22-2023 16:57-0400 Diastolic blood pressure 78 mm[Hg] Matthew Robles [facility] 08-22-2023 16:57-0400 Heart rate 86 /min Matthew Robles [facility] 08-22-2023 16:57-0400 SaO2% (BldA) [Mass fraction] 98 % Matthew Robles [facility] 08-22-2023 16:57-0400 Systolic blood pressure 122 mm[Hg] Matthew Robles [facility] 05-01-2023 15:46-0500 Body mass index (BMI) [Ratio] 33.45 kg/m2 Sybil Reis MD Work Phone: [facility] 05-01-2023 15:46-0500 Body temperature 96.8 [degF] Sybil Reis MD Work Phone: [facility] 05-01-2023 15:46-0500 Body weight 99.79 kg Sybil Reis MD Work Phone: [facility] 05-01-2023 15:46-0500 Diastolic blood pressure 80 mm[Hg] Sybil Reis MD Work Phone: [facility] 05-01-2023 15:46-0500 Heart rate 95 /min Sybil Reis MD Work Phone: [facility] 05-01-2023 15:46-0500 SaO2% (BldA) [Mass fraction] 100 % Sybil Reis MD Work Phone: [facility] 05-01-2023 15:46-0500 Systolic blood pressure 118 mm[Hg] Sybil Reis MD Work Phone: [facility] 01-23-2023 15:06-0500 Blood Pressure Location FLORES ISABELL [facility] 01-23-2023 15:06-0500 Diastolic blood pressure 79 mm[Hg] FLORES ISABELL [facility] 01-23-2023 15:06-0500 Heart rate 68 /min FLORES ISABELL [facility] 01-23-2023 15:06-0500 Respiratory rate 16 /min FLORES ISABELL [facility] 01-23-2023 15:06-0500 Systolic blood pressure 128 mm[Hg] FLORES ISABELL [facility] 07-28-2022 13:23-0400 Body weight 104.[address] KAUSHAL PAZ . [facility] Comment on above: Performed By: #### [id number] #### [facility] [address] [place] [address] Dr. Anthony Oneill 05-30-2022 14:09-0400 Blood Pressure Location FLORES CAMPBELL [facility] 05-30-2022 14:09-0400 Diastolic blood pressure 80 mm[Hg] FLORES ISABELL [facility] 05-30-2022 14:09-0400 Systolic blood pressure 126 mm[Hg] FLORES ISABELL [facility] 03-13-2022 02:36-0500 Body temperature 97.7 [degF] Kaylinn Dokken [facility] 03-13-2022 02:36-0500 Diastolic blood pressure 93 mm[Hg] Kaylinn Dokken [facility] 03-13-2022 02:36-0500 Heart rate 86 /min Kaylinn Dokken [facility] 03-13-2022 02:36-0500 Respiratory rate 18 /min Kaylinn Dokken [facility] 03-13-2022 02:36-0500 SaO2% (BldA) [Mass fraction] 99 % Kaylinn Dokken [facility] 03-13-2022 02:36-0500 Systolic blood pressure 143 mm[Hg] Kaylinn Dokken [facility] 02-26-2022 03:23-0500 Nursing Progress Note Reason Other: discharge instructions given. pt verbalzied understanding. Saima Moffett [facility] 02-26-2022 03:20-0500 Diastolic blood pressure 89 mm[Hg] [facility] 02-26-2022 03:20-0500 Heart rate 94 /min [facility] 02-26-2022 03:20-0500 Respiratory rate 16 /min [facility] 02-26-2022 03:20-0500 SaO2% (BldA) [Mass fraction] 97 % [facility] 02-26-2022 03:20-0500 Systolic blood pressure 125 mm[Hg] [facility] 02-26-2022 00:01-0500 Body temperature 99.86 [degF] [facility] 02-26-2022 00:01-0500 Diastolic blood pressure 88 mm[Hg] [facility] 02-26-2022 00:01-0500 Heart rate 82 /min [facility] 02-26-2022 00:01-0500 Respiratory rate 16 /min [facility] 02-26-2022 00:01-0500 SaO2% (BldA) [Mass fraction] 98 % [facility] 02-26-2022 00:01-0500 Systolic blood pressure 138 mm[Hg] [facility] 02-11-2022 12:30-0500 Diastolic blood pressure 78 mm[Hg] Jeff Maya [facility] 02-11-2022 12:30-0500 Heart rate 87 /min Jeff Maya [facility] 02-11-2022 12:30-0500 Mean blood pressure 94 mm[Hg] Jeff Maya [facility] 02-11-2022 12:30-0500 Respiratory rate 19 /min Jeff Maya [facility] 02-11-2022 12:30-0500 SaO2% (BldA) [Mass fraction] 97 % Jeff Francesco [facility] 02-11-2022 12:30-0500 Systolic blood pressure 125 mm[Hg] Jeff Francesco [facility] 02-11-2022 11:52-0500 Body temperature 97.7 [degF] Jeff Francesco [facility] 02-11-2022 11:52-0500 Diastolic blood pressure 78 mm[Hg] Jeff Francesco [facility] 02-11-2022 11:52-0500 Heart rate 84 /min Jeff Francesco [facility] 02-11-2022 11:52-0500 Respiratory rate 18 /min Jeff Francesco [facility] 02-11-2022 11:52-0500 SaO2% (BldA) [Mass fraction] 97 % Jeff Francesco [facility] 02-11-2022 11:52-0500 Systolic blood pressure 123 mm[Hg] Jeff Francesco [facility] 01-20-2022 09:42-0400 Body temperature 97.88 [degF] Jeff Francesco [facility] 01-20-2022 09:42-0400 Diastolic blood pressure 79 mm[Hg] Jeff Francesco [facility] 01-20-2022 09:42-0400 Heart rate 89 /min Jeff Francesco [facility] 01-20-2022 09:42-0400 Respiratory rate 18 /min Jeff Francecso [facility] 01-20-2022 09:42-0400 SaO2% (BldA) [Mass fraction] 98 % Jeff Francesco [facility] 01-20-2022 09:42-0400 Systolic blood pressure 122 mm[Hg] Jeff Maya [facility] 12-26-2021 15:29-0400 Blood Pressure Location Antonio ROSE [facility] 12-26-2021 15:29-0400 Diastolic blood pressure 87 mm[Hg] Antonio ROSE [facility] 12-26-2021 15:29-0400 Heart rate 67 /min Antoniotamiko ROSE [facility] 12-26-2021 15:29-0400 Respiratory rate 16 /min Antonio ROSE [facility] 12-26-2021 15:29-0400 Systolic blood pressure 127 mm[Hg] Antonio ROSE [facility] 09-17-2021 02:37-0400 Diastolic blood pressure 99 mm[Hg] Kendrick Nicolas [facility] 09-17-2021 02:37-0400 Heart rate 85 /min Kendrick Nicolas [facility] 09-17-2021 02:37-0400 Mean blood pressure 109 mm[Hg] Kendrick Nicolas [facility] 09-17-2021 02:37-0400 Respiratory rate 16 /min Kendrick Nicolas [facility] 09-17-2021 02:37-0400 SaO2% (BldA) [Mass fraction] 98 % Kendrick Nicolas [facility] 09-17-2021 02:37-0400 Systolic blood pressure 130 mm[Hg] Kendrick Nicolas [facility] 09-17-2021 00:22-0400 Diastolic blood pressure 70 mm[Hg] Kendrick Nicolas [facility] 09-17-2021 00:22-0400 Heart rate 75 /min Kendrick Nicolas [facility] 09-17-2021 00:22-0400 Mean blood pressure 80 mm[Hg] Kendrick Nicolas [facility] 09-17-2021 00:22-0400 Respiratory rate 16 /min Kendrick Nicolas [facility] 09-17-2021 00:22-0400 SaO2% (BldA) [Mass fraction] 99 % Kendrick Nicolas [facility] 09-17-2021 00:22-0400 Systolic blood pressure 99 mm[Hg] Kendrick Nicolas [facility] 09-16-2021 22:50-0400 Body temperature 97.88 [degF] Kendrick Nicolas [facility] 09-16-2021 22:50-0400 Diastolic blood pressure 87 mm[Hg] Kendrick Nicolas [facility] 09-16-2021 22:50-0400 Heart rate 85 /min Kendrick Nicolas [facility] 09-16-2021 22:50-0400 Respiratory rate 18 /min Kendrick Nicolas [facility] 09-16-2021 22:50-0400 SaO2% (BldA) [Mass fraction] 95 % Kendrick Nicolas [facility] 09-16-2021 22:50-0400 Systolic blood pressure 125 mm[Hg] Kendrick Nicolas [facility] 08-25-2021 21:00-0400 Diastolic blood pressure 74 mm[Hg] Jeff Francesco [facility] 08-25-2021 21:00-0400 Heart rate 95 /min Jeff Francesco [facility] 08-25-2021 21:00-0400 SaO2% (BldA) [Mass fraction] 96 % Jeff Francesco [facility] 08-25-2021 21:00-0400 Systolic blood pressure 110 mm[Hg] Jeff Francesco [facility] 08-25-2021 20:28-0400 Body temperature 97.16 [degF] Jeff Maya [facility] 08-25-2021 20:28-0400 Diastolic blood pressure 75 mm[Hg] Jeff Francesco [facility] 08-25-2021 20:28-0400 Heart rate 96 /min Jeff Francesco [facility] 08-25-2021 20:28-0400 Respiratory rate 20 /min Jeff Francesco [facility] 08-25-2021 20:28-0400 SaO2% (BldA) [Mass fraction] 95 % Jeff Maya [facility] 08-25-2021 20:28-0400 Systolic blood pressure 112 mm[Hg] Jeff Francesco [facility] 05-04-2021 15:00-0500 Body height 172.72 cm Wero Pedroza Other [facility] Other 05-04-2021 15:00-0500 Body mass index (BMI) [Ratio] 37.25 kg/m2 Wero Pedroza Other [facility] Other 05-04-2021 15:00-0500 Body weight 111.13 kg Wero Pedroza Other [facility] Other 05-04-2021 15:00-0500 Diastolic blood pressure 66 mm[Hg] Wero Syedy Other [facility] Other 05-04-2021 15:00-0500 Systolic blood pressure 118 mm[Hg] Wero Syedy Other [facility] Other 03-23-2021 14:30-0500 Body weight 110.22 kg Wero Pedroza Other [facility] Other Encounters Encounter Date Encounter Type Care Provider Facility Start: 10-18-2023 End: 10-18-2023 ambulatory RYAN MCKEON Not Available Start: 10-11-2023 End: 10-11-2023 ambulatory [facility] Work Phone: Start: 10-11-2023 End: 10-11-2023 Patient encounter procedure [facility] Work Phone: Start: 09-26-2023 End: 09-26-2023 ambulatory MAKENZIE MALONE Not Available Start: 09-18-2023 End: 09-18-2023 ambulatory BREN CAMPBELL Facility:[facility] Start: 09-18-2023 End: 09-18-2023 Patient encounter procedure FLORES CAMPBELL [facility] Start: 08-29-2023 End: 08-29-2023 ambulatory SYBIL REIS Not Available Start: 08-26-2023 End: 08-26-2023 Emergency department patient visit [facility] Facility:[facility] Start: 08-22-2023 End: 08-22-2023 ambulatory Matthew Robles Facility:[facility] Start: 08-22-2023 End: 08-22-2023 Lab Drop off Matthew Robles [facility] Start: 08-22-2023 End: 08-22-2023 ambulatory Matthew Robles Facility: [facility] Start: 08-22-2023 End: 08-22-2023 Patient encounter procedure Matthew Robles [facility] Start: 07-17-2023 End: 07-17-2023 ambulatory RYAN MCKEON Not Available Start: 07-04-2023 End: 07-04-2023 ambulatory SYBIL JASSOGLES Not Available Start: 05-16-2023 End: 05-16-2023 ambulatory Yung Chaz Morataya Facility:[facility] Start: 05-16-2023 End: 05-16-2023 Patient encounter procedure Yung Morataya [facility] Start: 05-14-2023 End: 05-14-2023 ambulatory YUNG MORATAYA Not Available Start: 05-09-2023 End: 05-09-2023 ambulatory HIMA GANDHI Not Available Start: 05-03-2023 End: 05-03-2023 ambulatory Sybil M Smiley Facility:[facility] Start: 05-03-2023 End: 05-03-2023 Patient encounter procedure Sybil M Smiley [facility] Start: 05-02-2023 Telephone encounter Devika DUMONT Comment on above: imaging Start: 05-01-2023 End: 05-01-2023 ambulatory SYBIL M SMILEY Not Available Start: 05-01-2023 End: 05-01-2023 Office outpatient visit 25 minutes Sybil Reis MD Work Phone: [facility] Comment on above: Left hip pain (Prima ry Dx); Left lower quadrant abdominal pain; Obesity (BMI 30.0-34.9); BMI 33.0-33.9,adult; Episodic cluster headache, not intractable Start: 05-01-2023 Andres dunham MD Work Phone: [facility] Start: 05-01-2023 Andres dunham MD Work Phone: [facility] Start: 04-24-2023 End: 04-24-2023 Emergency department patient visit Lance Cortes Facility:[facility] Start: 03-29-2023 End: 03-29-2023 ambulatory Antonio ROSE Facility:[facility] Start: 03-29-2023 End: 03-29-2023 Lab Drop off Antonio ROSE [facility] Start: 03-28-2023 End: 03-28-2023 ambulatory SYBIL REIS Not Available Start: 03-15-2023 End: 03-15-2023 ambulatory Antonio ROSE Facility:CD:[id number] Start: 02-14-2023 End: 02-14-2023 ambulatory Antonio ROSE Facility:[facility] Start: 02-14-2023 End: 02-14-2023 Patient encounter procedure Antonio ROSE [facility] Start: 02-05-2023 End: 02-05-2023 ambulatory SYBIL REIS Not Available Start: 01-23-2023 End: 01-23-2023 ambulatory FLORES CAMPBELL Facility:[facility] Start: 01-23-2023 End: 01-23-2023 Patient encounter procedure FLORES CAMPBELL [facility] Start: 01-23-2023 End: 01-23-2023 ambulatory FLORES CAMPBELL Facility:[facility] Start: 01-23-2023 End: 01-23-2023 Patient encounter procedure FLORES CAMPBELL [facility] Start: 01-01-2023 ambulatory Antonio Epps ty:[facility] Start: 07-24-2022 End: 07-25-[address] KAUSHAL PAZ . Facility:[facility] Start: 07-05-2022 End: 07-05-[address] KAUSHAL PAZ . Facility:[facility] Start: 05-30-2022 End: 05-30-2022 Patient encounter procedure FLORES CAMPBELL [facility] Start: 05-29-2022 End: 05-30-2022 ambulatory KEVIN JOSHI Facility:[facility] Start: 05-29-2022 End: 05-30-[address] KAUSHAL APZ . Facility:[facility] Start: 05-10-2022 End: 05-11-2022 ambulatory FLORES CAMPBELL Facility:[facility] Start: 03-13-2022 End: 03-13-2022 Emergency department patient visit Jose Teran [facility] Start: 02-25-2022 End: 02-26-2022 Emergency department patient visit Phillipfrancesco Cordova Zuhair [facility] Start: 02-11-2022 End: 02-11-2022 Emergency department patient visit Jeff Maya [facility] Start: 01-27-2022 End: 01-28-[address] ANTONIO ROSE . Facility:[facility] Start: 01-20-2022 End: 01-20-2022 Emergency department patient visit Jeff Maya [facility] Start: 12-26-2021 End: 12-26-2021 Patient encounter procedure Antonio ROSE [facility] Start: 12-12-2021 End: 12-13-[address] ANTONIO ROSE . Facility: Start: 10-17-2021 End: 10-17-2021 Patient encounter procedure WERO PEDROZA [facility] Start: 09-16-2021 End: 09-17-2021 Emergency department patient visit Kendrick Valenzuela [facility] Start: 08-25-2021 End: 08-25-2021 Emergency department patient visit Jeff Maya [facility] Start: 06-27-2021 End: 06-27-2021 Patient encounter procedure WERO PEDROZA [facility] Start: 05-04-2021 End: 05-04-2021 ambulatory Wero Syedy Other [facility] Other Start: 05-04-2021 Patient encounter procedure Wero Pedroza [facility] Start: 03-23-2021 End: 03-23-2021 ambulatory Wero Syedy Other [facility] Other Start: 03-23-2021 [facility] visit new patient Wero Pedroza [facility] Start: 08-10-2017 End: 08-10-2017 [facility] Start: 07-26-2017 End: 07-27-2017 Emergency department patient visit CHELSEA TEJADA Facility:[facility] Procedures Date Procedure Procedure Detail Performing Clinician Start: 12-27-2022 H/O: section S/P s ection Sybil Reis MD Work Phone: Start: 07-05-2022 Microscopic observat ion [Identifier] in Cervix by Cyto stain Sybil Reis MD Work Phone: Start: 05-11-2015 Nephrostomy tube (physical object) WERO PEDROZA Start: 04-14-2015 Cystoscopy WERO JENKINS Start: 03-08-2015 Cystoscopy WERO JENKINS Start: 10-26-2014 cystoscopy, urethral dilatation, right retrograde pyelogram, right double J ureteral stent placement under fluoroscopic guidance WERO PEDROZA Start: 09-05-2014 section NORMA Gutierrez REINIER Exploratory laparotomy [facility] [employer] Plan of Treatment Date Care Activity Detail Author Start: 07-06-2027 Screening for malign ant neoplasm of cervix [facility] Start: 09-16-2023 Influenza vaccination Influenz a Vaccine (#1) [facility] Comment on above: Postponed from 11/17 (Patient Refused) Start: 07-18-2023 End: 07-18-2023 Patient encounter procedure 07/18/2023 11:00 AM EDT Office Visit [facility] [address] [place] [address] Hima Gandhi DO [address] [place] [address] [facility] Start: 05-14-2023 End: 05-14-2023 Patient encounter procedure 05/14/2023 3:30 PM EST Office Visit [facility] [address] [place] [id number] Yung Morataya PA [address] [place] [address] [facility] Start: 05-02-2023 End: 05-02-2024 US Pelvis US pelvis Imaging Routine Left lower quadrant abdominal pain Expected: 05/02/2023, Expires: 05/02/2024 [facility] Work Phone: Comment on above: Expected: 05/02/2023 , Expires: 05/02/2024 Immunizations Immunization Date Immunization Notes Care Provider Fa sallie 09-26-2019 tetanus toxoid, redu dago diphtheria toxoid, and acellular pertussis vaccine, adsorbed; Translations: [Adacel (Tdap)] WERO PEDROZA [facility] Payers Date Payer Category Payer Medicaid [employer] [facility] [place] [facility] [place] [id number] 2020-Present [address] [place] [address] [id number] 2017 Self-pay 1986 Unknown [id number] 2.16.840.1.031620.3.579.2.593 1986 Unknown [id number] 2.16.840.1.140359.3.579.2.593 1986 Unknown [id number] 2.16.840.1.180355.3.579.2.593 1986 Unknown [id number] 2.16.840.1.710513.3.579.2.593 1986 Unknown [id number] 2.16.840.1.984590.3.579.2.593 1986 Unknown [id number] 2.16.840.1.389423.3.579.2.593 1986 Unknown [id number] 2.16.840.1.857616.3.579.2.593 1986 Unknown [id number] 2.16.840.1.278485.3.579.2. 1986 Unknown [id number] 2.16.840.1.287684.3.579.2. 1986 Unknown [id number] 2.16.840.1.516610.3.579.2 1986 Unknown [id number] 2.16.840.1.904512.3.579.2 1986 Unknown [id number] 2.16.840.1.178839.3.579.2 1986 Unknown [id number] 2.16.840.1.592134.3.579.2 1986 Unknown [id number] 2.16.840.1.614623.3.579.2 1986 Unknown [id number] 2.16.840.1.124383.3.579.2 1986 Unknown [id number] 2.16.840.1.906773.3.579.2 1986 Unknown [id number] 2.16.840.1.011947.3.579.2 1986 Unknown [id number] 2.16.840.1.370868.3.579.2 1986 Unknown [id number] 2.16.840.1.727582.3.579.2 1986 Unknown [id number] 2.16.840.1.685626.3.579.2 1986 Unknown [id number] 2.16.840.1.270903.3.579.2.1258 1986 Unknown [id number] 2.16.840.1.240020.3.579.2.1258 1986 Unknown [id number] 2.16.840.1.703310.3.579.2.1258 1986 Unknown [id number] 2.16.840.1.148860.3.579.2.1259 1986 Unknown [id number] 2.16.840.1.346391.3.579.2.9 1986 Unknown [id number] 2.16.840.1.135494.3.579.2.9 1986 Unknown [id number] 2.16.840.1.008951.3.579.2.1258 1986 Unknown [id number] 2.16.840.1.941922.3.579.2.9 1986 Unknown [id number] 2.16.840.1.041656.3.579.2.9 1986 Unknown [id number] 2.16.840.1.329987.3.579.2.9 1986 Unknown [id number] 2.16.840.1.890507.3.579.2.9 1958 Medicaid [id number] 1958 Unknown [id number] 2.16.840.1.567696.19 Social History Date Type Detail Facility Start: 11-30-2020 End: 08-22-2023 Tobacco smoking status Ex-smoker (finding) [facility] Other Start: 02-01-2023 End: 05-01-2023 Sex Assigned At Female [facility] Other Start: 08-25-2021 Tobacco smoking status Light t obacco smoker (finding) [facility] Start: 01-23-2023 Tobacco smoking status Heavy t obacco smoker (finding) [facility] Tobacco smoking status Never [facility] Start: 12-06-2022 Tobacco smoking stat us NCIS Smokes tobacco daily [facility] History of tobacco use Cigarette Smoker [facility] Start: 12-06-2022 End: 02-01-2023 Cigarettes smoked current (pack per day) - Reported 0.3 [facility] Start: 03-28-2023 End: 05-01-2023 Alcohol intake Ex-drinker (finding) [facility] Within the last year , have you been afraid of your partner or ex-partner? No [facility] Are you now , , , , never or living with a partner? Never [facility] How often to you hav e a drink containing alcohol? Monthly or less [facility] How many standard drinks containing alcohol do you have on a typical day? 1 or 2 [facility] How often do you hav e 6 or more drinks on 1 occasion? Less than monthly [facility] Do you feel stress - tense, restless, nervous, or anxious, or unable to sleep at night because your mind is troubled all the time - these days [OSQ] Not at all [facility] (I/We) worried wheaniceto er (my/our) food would run out before (I/we) got money to buy more. Never true [facility] Start: 08-26-2022 Tobacco Comment Smokes 5 or le ss cigarettes/day ; after 31-60 minutes of waking up.Thinking about quitting. [facility] Start: 08-26-2022 Alcohol Comment Alcohol: 1-2 drinks/monthly or less/ >6 drinks or more less than monthly [facility] Start: 1985 Sex Assigned At Not on file [facility] Start: 09-17-2023 [facility] Start: 1985 Sex Assigned At Female F [facility] Functional Status Date Assessment Result Facility 08-26-2023 Functional Status N/A [facility] 08-22-2023 Functional Status N/A [facility] 01-23-2023 Functional Status N/A [facility] 05-30-2022 Functional Status N/A [facility] 03-13-2022 Functional Status N/A [facility] 02-26-2022 Functional Status N/A [facility] 02-11-2022 Functional Status N/A [facility] 01-20-2022 Functional Status Yes [facility] 12-26-2021 Functional Status N/A [facility] 09-16-2021 Functional Status N/A [facility] Clinical Notes 03-23-2021 to 09-17-2023 Note Date & Type Note Facility 09-17-2023 Hospital Discharg e instructions Follow Up Care 09/17/2023 13:17:42 With:FLORES CAMPBELL PA-C, URL Address: [address] [facility] [place] [address] When: Unknown [facility] 08-26-2023 Evaluation + Plan note Extrac aleisha from: Title:ED Note Author:Lance Cortes DO Date:08/25 Pneumonia (J18.9: Pneumonia, unspecified organism) Orders: doxycycline, 100 mg = 1 cap(s), Cap, Oral, Once, Stop date 08/26/23 10:35:00 EDT, STAT, Start date 08/26/23 10:35:00 EDT, 08/26/23 10:35:00 EDT doxycycline, 100 mg = 1 tab(s), Oral, BID, X 7 day(s), # 14 tab(s), Refills(s) 0, Pharmacy: [id number], 172.7, cm, 08/26/23 10:11:00 EDT, Height/Length Dosing, 99, kg, 08/26/23 10:11:00 EDT, Weight Dosing ECG 12 Lead Adult XR Chest 2 Views [facility]06-09-2024 Hospital Discharge instructions Follow Up Care 08/26/2023 09:46:12 With:Sybil Reis Address: [address] [place] [address]- Business (1) When:Within 3 Day(s) [facility]06-08-2024 NoteMicrobiology PROCEDURE: Strep Screen Culture [R1] SOURCE: Throat BODY SITE: COLLECTED DATE/TIME: 08/22/2023 17:34 EDT RECEIVED DATE/TIME: 08/23/2023 13:39 EDT START DATE/TIME: 08/23/2023 13:39 EDT FREE TEXT SOURCE: Matthew Robles PA-C. Matthew Robles PA-C. FINAL REPORTS Final Report [] Verified Date/Time: 08/25/2023 10:36 EDT Streptococcus Group A screen negative 2+ Streptococcus agalactiae (Group B) Presumptive isolated. Performing Locations R1: This test was performed at: [facility], [address] [place] [address], [id number] [place] [address], [id number] Reid StreetComment on above:Performed By: #### [id number] #### [facility] [address] [place] [address] [id number] NoteMicrobiology PROCEDURE: Strep Screen Culture [R1] SOURCE: Throat BODY SITE: COLLECTED DATE/TIME: 08/22/2023 17:34 EDT RECEIVED DATE/TIME: 08/23/2023 13:39 EDT START DATE/TIME: 08/23/2023 13:39 EDT FREE TEXT SOURCE: Matthew Robles PA-C. Matthew Robles PA-C. FINAL REPORTS Final Report [] Verified Date/Time: 08/25/2023 10:36 EDT Streptococcus Group A screen negative 2+ Streptococcus agalactiae (Group B) Presumptive isolated. Performing Locations R1: This test was performed at: [facility], [address] [place] [address], [id number] [place] [address], Apqtcn[address] Reid StreetComment on above:Performed By: #### [id number] #### [facility] [address] [place] [address] [id number] Evaluation + Plan note Diagnostic Tests Pending * Strep Screen Culture 08/22/23 [facility]02-14-2024 Telephone encounter Note* Telephone Encounter - Holli Rolle - 05/02/2023 1:26 PM EST Lm informing pt, closing enc [facility] [id number] Miscellaneous Notes* Telephone Encounter - Holli Rolle - 05/02/2023 1:26 PM EST Lm informing pt, closing enc * Telephone Encounter - Sybil Reis MD - 05/02/2023 8:37 AM EST Order created and faxed * Telephone Encounter - Holli Rolle - 05/02/2023 8:29 AM EST Pt calls and states US should have been ordered to [facility] from last visit? Please advise thank you. documented in this encounterNOChristian [id number] Telephone encounter Note* Telephone Encounter - Sybil Reis MD - 05/02/2023 8:37 AM EST Order created and faxed [facility] [id number] Telephone encounter Note* Telephone Encounter - Sybil Reis MD - 05/02/2023 8:35 AM EST Rx sent [facility] [id number] Miscellaneous Notes* Telephone Encounter - Sybil Reis MD - 05/02/2023 8:35 AM EST Rx sent * Telephone Encounter - Devika Chapman MA - 05/02/2023 8:25 AM EST Pt states needing nicotine patches sent? D[facility] [place] documented in this encounterWright Memorial [id number] Telephone encounter Note* Telephone Encounter - Holli Rolle - 05/02/2023 8:29 AM EST Pt calls and states US should have been ordered to [facility] from last visit? Please advise thank you. [facility] [id number] Telephone encounter Note* Telephone Encounter - Devika Chapman MA - 05/02/2023 8:25 AM EST Pt states needing nicotine patches sent? DDKelly Abhi [facility] [id number] History of Present illness Narrative* Sybil Reis MD - 05/01/2023 3:40 PM EST Patient: Flores Houser : 1985 PCP: Sybil Reis MD Flores Houser is a 37 y.o. female presenting today for follow-up after being seen in ED. The mainproblem requiring evaluation was hip pain. The discharge summary and/or Transitional Care Management documentation was reviewed. Medication reconciliation was performed as indicated via the Behzad as Reviewed timestamp. Flowsheet Row Documentation from 04/25/2023 in [facility] with Talia Roach MA Discharge Information ED or Hospital Discharge? ED Patient has been contacted within 1 week of being seen in the ED Yes Discharge Date 04/24/23 Discharge Hospital [facility] Discharged To: Home Setting Engagement Medications Discharge medications reviewed and reconciled from hospital? Yes Appointments Self Management Patient Teaching Does the patient have access to their discharge instructions? Yes Wrap Up Review of Systems General: Denies fever, chills, fatigue CV: Denies CP, palpitations or swelling in legs Resp: denies cough, SOB or wheezing GI: Denies n/v/c/d Skin: Denies rash Neuro: Denies LH or dizziness Objective Vitals: 05/01/23 1546 BP: 118/80 Pulse: 95 Temp: 96.8 F SpO2: 100% Physical Exam General: alert & oriented, NAD Head: NC/AT Oral Cavity: MMM Skin: warm, dry Heart: RRR, No m/r/g, S1S2 nml Lungs: CTA b/l Abdomen: soft, ND, mild TTP over LLQ, BS wnl Musculoskeletal: normal gait Extremities: no clubbing, cyanosis or edema Neurological: nonfocal Psych: mood/affect full range Assessment/Plan Flores was seen today for hospital follow-up. Diagnoses and all orders for this visit: Left hip pain (Primary) - Ambulatory referral to Orthopaedic Surgery; Future - reviewed ED course with pt. Discussed possible causes, sx tx, side effects of meds and concerning sx to monitor for. Left lower quadrant abdominal pain - as above Obesity (BMI 30.0-34.9) - phentermine (Adipex-P) 37.5 MG tablet; Take 1 tablet (37.5 mg) by mouth in the morning. Take before meals. - encouraged continued lifestyle modifications - continue to monitor weight BMI 33.0-33.9,adult - phentermine (Adipex-P) 37.5 MG tablet; Take 1 tablet (37.5 mg) by mouth in the morning. Take before meals. Episodic cluster headache, not intractable - Ambulatory referral to Neurology; Future No follow-ups on file. documented in this encounterWright Memorial [id number] Evaluation + Plan note Diagnostic Tests Pending * Calculi Analysis Urinary 03/29/23 [facility]11-07-2023 Hospital Discharge instructions Patient Education 01/23/2023 15:28:24 Dietary Guidelines [...] about 300 mg of calcium at each meal.Foods that contain 200 500 mg of calcium a serving include: ?8 oz (237 mL) of milk, yxfubcz-hrnoffnzzcxf-ebaxn milk, and calcium- fortifiedfruit juice. Calcium-fortified means that calcium has been [...] the table and allow each person to addhis or her own salt to taste. Use vegetable protein, such as beans, textured vegetable protein (TVP), or tofu, instead of meat inpasta, casseroles, and soups. Meal planning Eat less salt, if told by your dietitian. To do this: ?Avoid eating processed or pre-made food. ?Avoid eating fast food. Eat less animal protein, including cheese, meat, poultry, or fish, if told by your dietitian. To dothis: ?Limit the number of times you have [...] ?Spinach (cooked), rhubarb, beets, sweet potatoes, and Nepalese chard. ?Peanuts. ?Potato chips, chadian fries, and baked potatoes with skin on. ?Nuts and nut products. ?Chocolate. If you regularly take a diuretic medicine, make sure to eat at least 1 or 2 servings of fruits or vegetables that are high in potassium each day. These include: ?Avocado. ?Banana. ?Sieper, prune, carrot, or tomato juice. ?Baked potato. [...] taking daily supplements. You may be told thefollowing depending on your health and the cause of your kidney stones: ?Not to take supplements with vitamin C. ?To take a calcium supplement. ?To take a daily probiotic supplement. ?To take other supplements such as magnesium, fish oil, or vitamin B6. Take nozc-gjb-rafbojx and prescription medicines only as told by [...] Casseroles. Pizza. Lasagna. Frozen meals. Potato chips. Welsh fries. The items listed above may not be a complete list of foods and beverages you should limit. Contact a dietitian for more information. What foods should I avoid? Talk to your dietitian about specific foods you should avoid based on the type of kidney stones youhave and your overall health. Fruits Grapefruit. The item listed above may not be a complete list of foods and beverages you should avoid. Contact adietitian for more information. Summary Kidney stones are [...] provider. Document Revised: 11/14/2021 Document Reviewed: 11/14/2021 [employer] Patient Education 2022 [employer]. Follow Up Care 01/18/2023 11:12:25 With:ISABELL CORREIA, FLORES Gonzalez, URL Address: [address] [address] [phone] When: Unknown Comments:will call pt [facility] Jocelin 03-14-2023 Hospital Discharge instructions Patient Education 05/30/2022 14:22:17 Kidney Stones, Fimz-yi-Wrac Kidney Stones Kidney stones are rock-like masses [...] Follow these instructions at home: Medicines Take msbx-txv-twryhkp and prescription medicines only as told by [...] 08/21/2008 Document Revised: 07/22/2019 Document Reviewed: 07/22/2019 [employer] Patient Education 2019 [employer]. Follow Up Care 02/03/2022 10:51:16 With:FLORES CAMPBELL PA-C, URL Address: [address] [place] [address] When: Unknown [facility] 12-26-2022 Evaluation + Plan noteExtracted from: Title:ED Note Author:Jose Teran DO Date :03/13/22 Toe fracture (S92.919A: Unsp ecified fracture of unspecified toe(s), initial encounter for closed fracture) Orders: acetaminophen-hydrocodone, 1 EA, Tab, Oral, Once, Stop date 03/13/22 3:15:00 EST, STAT, Start date 03/13/22 3:15:00 EST Post-op Shoe XR Foot 3+ Views Left Future Appointments Appointment Date:05/09/2022 01:00:00 PM Scheduled Provider:FLORES CAMPBELL PA-C Location:[facility] Appointment Type:URO Office Visit Appointment Date:01/01/2023 01:15:00 PM Scheduled Provider:Antonio ROSE MD Location:[facility] Appointment Type:URO Office Visit [facility]12-26-2022 Hospital Discharge instructions Patient Education 03/13/2022 03:31:06 Toe Fracture, Kvgy-nm-Twvz Toe Fracture A toe fracture is a [...] 08/21/2008 Document Revised: 05/09/2018 Document Reviewed: 04/16/2018 [employer] Patient Education 2020 [employer]. Follow Up Care 03/13/2022 02:36:09 With:Leigh Gonzalez Address: [address] [place], [place] [address]- Business (1) When:03/16/2022 Comments:Use the pain medication every 6 hours as needed for pain. Please follow-up with orthopedics for further evaluation management. Please return to ED for any new or worsening symptoms. With:DOMO SMILEY Address: [address] [address] Business (1) When:03/16/2022 [facility]12-11-2022 Evaluation + Plan noteExtracted from: Title:ED Note Author:Zuhair Chen, Saima Gonsales te:02/26/22 1. Headache (R51.9: Headache , unspecified) [...] Appointments Appointment Date:05/09/2022 01:00:00 PM Scheduled Provider:FLORES CAMPBELL PA-C Location:[facility] Appointment Type:URO Office Visit Appointment Date:01/01/2023 01:15:00 PM Scheduled Provider:Antonio ROSE MD Location:[facility] Appointment Type:URO Office Visit [facility]12-11-2022 Hospital Discharge instructions Patient Education 02/26/2022 03:24:36 [...] help with your condition: Managing pain Take cesf-tjx-bvedwls and prescription medicines only as told by [...] 03/05/2006 Document Revised: 09/23/2018 Document Reviewed: 09/23/2018 [employer]about Patient Education 2020 [employer]. Follow Up Care 02/25/2022 23:48:18 With:DOMO REIS Address: [address], [address] [address] [facility] (1) When:03/01/2022 Comments:Return to the emergency room if your headache recurs or any new symptoms [facility]11-26-2022 Hospital Discharge instructions Patient Education 02/11/2022 12:52:36 [...] back becomes more flexible: 1.Get into a fcjcq-lcs-oaviw position on a firm surface. Keep your [...] 04/12/2005 Document Revised: 07/10/2019 Document Reviewed: 12/05/2018 Walkabout Patient Education 2020 [employer]. 02/11/2022 12:52:36 Acute Back Pain, Adult Acute [...] home: Managing pain, stiffness, and swelling Take myrr-twp-rzsfxyb and prescription medicines only as told by [...] each day. Do not sit, drive, or marine structural designer one place for more than 30 minutes [...] put less stress on your back. Take vamk-nvs-zkzkguf and prescription medicines and apply heat or ice as directed by your health care provider. This information is not intended to replace advice given to you by your health care provider. Make sure you discuss any questions you have with your health care provider. Document Released: 03/05/2006 Document Revised: 06/24/2019 Document Reviewed: 10/17/2017 [employer]about Patient Education 2020 [employer]. Follow Up Care 02/11/2022 11:42:16 With:DOMO REIS Address: [facility] [address] [address] [facility] (1) When:02/14/2022 12:47:50 Comments:Call the office of [...] breath, or any new or worsening symptoms. [facility]11-26-2022 Evaluation + Plan noteExtracted from: Title:ED Note Author:Jeff Maya DO Date:04/13/21 Musculoskeletal back pain (M 54.9: Dorsalgia, unspecified) Orders: cyclobenzaprine, 10 mg = 1 tab(s), Oral, TID, PRN Muscle pain, X 5 day(s), # 15 tab(s), Refills(s) 0, Pharmacy: [facility], 173, cm, 02/11/22 12:01:00 EST, Height/Length Dosing, 105, kg, 02/11/22 12:01:00 EST, Weight Dosing ketorolac, 30 mg = 1 mL, Injection, IntraMuscular, Once, Stop date 02/11/22 12:43:00 EST, STAT, Start date 02/11/22 12:43:00 EST, 02/11/22 12:43:00 EST lidocaine topical, 1 patch(es), Topical, Daily Muscle pain, 7 EA, Refill(s) 0, apply 12 hours on and 12 hours off daily, [facility], 173, cm, 02/11/22 12:01:00 EST, Height/Length Dosing, 105, kg, 02/11/22 12:01:00 EST, Weight Dosing lidocaine topical, 1 patch(es), Patch, TransDermal, Once, Stop date 02/11/22 12:43:00 EST, STAT, Start date 02/11/22 12:43:00 EST naproxen, 500 mg = 1 tab(s), Oral, BID, PRN for pain, # 20 tab(s), Refills(s) 0, Pharmacy: [facility], 173, cm, 02/11/22 12:01:00 EST, Height/Length Dosing, 105, kg, 02/11/22 12:01:00 EST, Weight Dosing U Beta Hcg Qual UA With Cult Reflex Future Appointments Appointment Date:05/09/2022 01:00:00 PM Scheduled Provider:FLORES CAMPBELL PA-C Location:[facility] Appointment Type:URO Office Visit Appointment Date:01/01/2023 01:15:00 PM Scheduled Provider:Antnoio ROSE MD Location:[facility] Appointment Type:URO Office Visit [facility]11-04-2022 Evaluation + Plan noteExtracted from: Title:ED Note Author:Trent Becker PA-C te:01/20/22 Viral URI (J06.9: Acute uppe r respiratory infection, unspecified) Orders: brompheniramine/dextromethorphan/PSE, 5 mL, Oral, QID for cold symptoms, 200 mL, Refill(s) 0, [facility], 174, cm, 01/20/22 9:44:00 EDT, Height/Length Dosing, 94, kg, 01/20/22 9:44:00 EDT, Weight Dosing Influenza A&B Ag Rapid COVID Antigen ([facility]) Future Appointments Appointment Date:01/01/2023 01:15:00 PM Scheduled Provider:Antonio ROSE MD Location:[facility] Appointment Type:URO Office Visit [facility]11-04-2022 Hospital Discharge instructions Patient Education 01/20/2022 10:51:02 Upper Respiratory Infection, Adult, Rrac-pa-Rqsq Upper Respiratory Infection, Adult An upper respiratory [...] and other clear broths. General instructions Take jztr-pjf-fpjcqio and prescription medicines only as told by [...] not have soap and water, use hand iron carrier. Avoid touching your mouth, face, eyes, or [...] get better within 7 10 days. Take htvg-qfb-ivazpxz and prescription medicines only as told by your doctor. This information is not intended to replace advice given to you by your health care provider. Make sure you discuss any questions you have with your health care provider. Document Released: 08/21/2008 Document Revised: 03/13/2019 Document Reviewed: 10/26/2017 Walkabout Patient Education 2020 [employer]. 01/20/2022 10:51:02 Cough, Adult Cough, Adult Coughing [...] Follow these instructions at home: Medicines Take mhka-dij-fyllvem and prescription medicines only as told by [...] of a condition that needs treatment. Take abyh-dbm-fnzdeub and prescription medicines only as told by [...] 09/01/2011 Document Revised: 03/24/2019 Document Reviewed: 03/24/2019 Walkabout Patient Education 2020 [employer]. Follow Up Care 01/20/2022 09:28:29 With:DOMO REIS Address: [facility] [address] [id number] [facility] (1) When:01/23/2022 10:47:15 Comments:Follow-up with your primary care provider in 3 to 5 days. If symptoms worsen, do not improve, or new symptoms arise please report back to emergency department for further evaluation. [facility]10-10-2022 Hospital Discharge instructions Patient Education 12/26/2021 16:22:27 Kidney Stones, Dcvq-wo-Rlko Kidney Stones Kidney stones are rock-like masses [...] Follow these instructions at home: Medicines Take vsvl-uvn-lptfhhj and prescription medicines only as told by [...] 08/21/2008 Document Revised: 07/22/2019 Document Reviewed: 07/22/2019 [employer] Patient Education 2020 [employer]. Follow Up Care 10/20/2021 11:32:55 With:ROSE GIMENEZ, Antonio Parikh, URL Address: [facility] [address] [place] [phone] When:12/26/2022 Comments:KUB [facility] Jocelin 08-01-2022 Evaluation + Plan note Diagnostic Tests Pending * HCV RT-PCR, Quant (Non-Graph) 10/17/21 [facility]07-02-2022 Hospital Discharge instructions Patient Education 09/17/2021 02:38:41 [...] told by your health care provider. Take wnuu-sfd-lifrlgs and prescription medicines only as told by [...] 04/26/2006 Document Revised: 02/15/2018 Document Reviewed: 05/18/2017 Walkabout Patient Education 2020 [employer]. Follow Up Care 09/16/2021 22:50:01 With:Gracia Murillo Address: [address] [place] [address]- Business (1) When:Within 3 Day(s) [facility]07-01-2022 Evaluation + Plan noteExtracted from: Title:ED Note [...] Beta Hcg Qual UA With Cult Reflex [facility]06-09-2022 Hospital Discharge instructions Patient Education 08/25/2021 20:53:05 [...] and water are not available, use hand iron carrier. Make sure that all people in your household wash their hands well and often. Take oymn-wxs-gekookv and prescription medicines only as told by [...] and water are not available, use hand iron carrier. This information is not intended to replace advice given to you by your health care provider. Make sure you discuss any questions you have with your health care provider. Document Released: 03/05/2006 Document Revised: 08/22/2019 Document Reviewed: 01/08/2019 Walkabout Patient Education 2020 [employer]. Follow Up Care 08/25/2021 20:22:07 With:Lilian Vargas Address: [facility] [address] [facility] [address] [place] [address]- Business (1) When:08/28/2021 20:52:48 Comments:Call the office of [...] weakness, or any new or worsening symptoms. [facility]06-09-2022 Evaluation + Plan noteExtracted from: Title:ED Note [...] date 08/25/21 20:49:00 EDT, 08/25/21 20:49:00 EDT [facility]04-11-2022 Evaluation + Plan note Diagnostic Tests Pending * HCV RT-PCR, Quant (Non-Graph) 06/27/21 [facility]02-16-2022 Evaluation note* Encounter Date Diagnosis Assessment Notes [...] treatment and 12 weeks after finishing treatment. [employer] Other 01-05-2022 Evaluation note* Encounter Date Diagnosis [...] TESTING Q 4 WEEKS WHILE ON THERAPY [employer] Other Evaluation + Plan note Future Appointments Appointment Date:01/01/2023 01:15:00 PM Scheduled Provider:Antonio ROSE MD Location:[facility] Appointment Type:URO Office Visit [facility] evaluation note* Diagnosis Left hip pain- Primary Pain in joint, pelvic region and thigh Left lower quadrant abdominal pain Obesity (BMI 30.0-34.9) BMI 33.0-33.9,adult Episodic cluster headache, not intractable [facility] Diagnosis Tobacco abuse- Primary Tobacco use disorder documented [facility]* Diagnosis Left lower quadrant abdominal pain- Primary documented in this encounter [facility]* Diagnosis Onset Date Resolution Status Varicose veins of both lower extremities with pain acute [facility] Work Phone: Hisvqcx general Narrative - Reported* Type Description Date Surgical History C section [facility] [employer] Other Hospital course Narrative No data available for this section [facility] No data available for this section [facility] No data available for this section [facility] HospitalReason for referral (narrative)* Consultation (Routine) - Pending Review Specialty Diagnoses / Procedures Referred By Jemal t Referred To Contact Neurology Diagnoses Episodic cluster headache, not intractable Procedures TX OFFICE/OUTPATIENT NEW HIGH MDM 60 MINUTES Sybil Reis MD [address] [place] [address] Makenzie Malone MD [address] [facility] [address] [place] [address] Referral ID Status Reason Start Date Expiration Date Visits Requested Visits Authorized [id number] Pending Review Specialty Services Required 05/01/2023 10/28/2023 1 1 * Consultation (Routine) - Pending Review Specialty Diagnoses / Procedures Referred By Jemal kellogg Referred To Contact Orthopaedic Surgery Diagnoses Left hip pain Sybil Reis MD [address] [place] [address] uJan Nelson, DO [address] [place] [address] Referral ID Status Reason Start Date Expiration Date Visits Requested Visits Authorized [id number] Pending Review Specialty Services Required 05/01/2023 10/28/2023 1 1 [facility] NarrativePATIENT HERE AT THE REQUEST OF DR JOSHI FOR EVALUATION & TREATMENT OF HEPATITIS C.- PATIENT STATES WAS DORMENT FOR 3 YEARS AND WHEN SHE WAS THIS FLARED UP. PATIENT HAS NOT HAD ANY RECENT L ABS OR IMAGING., 03/[address] JOSHI' OFFICE FOR [employer] Other Summary Purpose Family History No Family History Records Found Relationship Condition Age at Onset Recorded Date/T berto Not Specified No pertinent family history Unknown Advance Directives No Advanced Directives Records Found Advance Directive Response Recorded Date/ Time Advance Directives No September 16 1:11pm Chief Complaint and Reason for Visit Chief Complaint Self Ref for Varicos e Veins Reason for Visit Varicose veins of miki th lower extremities with pain Additional Source Comments INFORMATION SOURCE (unrecogn ized section and content) DATE CREATED AUTHOR 09/05/2017 [facility] DATE CREATED AUTHOR AUTHOR'S ORGANIZ ATION 09/20/2017 [facility] DATE CREATED AUTHOR AUTHOR'S ORGANIZ ATION 05/02/2021 [facility] DATE CREATED AUTHOR AUTHOR'S ORGANIZ ATION 07/28/2022 [facility] DATE CREATED AUTHOR AUTHOR'S ORGANIZ ATION 08/23/2023 [facility] DATE CREATED AUTHOR AUTHOR'S ORGANIZ ATION 08/26/2023 [facility] DATE CREATED AUTHOR AUTHOR'S ORGANIZ ATION 09/20/2023 [facility] DATE CREATED AUTHOR AUTHOR'S ORGANIZ ATION 10/21/2023 [facility] EPIC REASON FOR VISIT (unrecogniz ed section and content) Reason Comments Hospital Follow-up Pt here for hosp fol low up Reason Onset Date Comments imaging 05/02/2023 Care Team (unrecognized sect ion and content) [employer] Relationship Specialty Start Date End Date Sybil Reis MD [address] [place] [id number] PCP - General Family Medicine 08/29/22 [employer] Relationship Specialty Start Date End Date Sybil Reis MD [address] [place] [id number] PCP - General Family Medicine 08/29/22 [employer] Maker Relationship Specialty Start Date End Date Sybil Reis MD [address] [place] [id number] PCP - General Family Medicine 08/29/22 [employer] Maker Relationship Specialty Start Date End Date Sybil Reis MD [address] [place] [id number] PCP - General [facility] Medicine 08/29/22 Team Status: Active Member Role Status Dates Kevin Joshi MD Primary Care Provider Active Team Status: Inactive Member Role Status Dates Kevin Joshi MD Primary Care Provider Active Start: October 11, 2023 End: October 11, 2023 Phill De La Paz MD Attending Provider Active Start: October 11, 2023 End: October 11, 2023 Goals (unrecognized section and content) Goals may be documented in a n alternate section FOR RECORDS PERTAINING TO PATIENTS WHO ARE [...] BE BASED ON THE PRIMARY CLINICAL RECORDS. [employer] [facility]. provides no warranty or guarantee of the accuracy or completeness of information in this document.
== END 2023-11-13 18:49 | disposition home or self-care (01) ==
LOC: LAB 18:48
PROVIDERS: PCP Student in an Organized Health Care Education/Training Program; Visit Provider Physician Assistant
DX: Z01.419 Encounter for gynecological examination (general) (routine) without abnormal findings (principal)
CPT/HCPCS: 87624; 88175

== ENCOUNTER 2025-02-23 19:53 | Outpatient (REF) | payer OTHER, SELFPAY ==
--- OUTSIDE RECORDS SUMMARY | 2025-02-23 19:58 | XMS_ITS | CCD ---
Author Organization [facility] CliniSyoh Care Team Providers Care Manager Unit Name Role Phone CHELSEA TEJADA Unavailable Unavailable TEJADACHELSEA FRENCH Unavailable Unavailable MAJO, KAUSHAL Unavailable Unavailable MAJO, KAUSHAL Unavailable Unavailable , KAUSHAL Unavailable Unavailable , KAUSHAL Unavailable Unavailable , KAUSHAL Unavailable Unavailable , KAUSHAL Unavailable Unavailable NONE, XXXX Primary Care Physician Unavailab Wero Howard Unavailable Gracia Murillo Primary Care Physician DOMO REIS Primary Care Physician [phone] EASLEY Attending Unavailabl e KARASIK ., DR EASLEY Consulting Unavailabl e KARASIK ., DR EASLEY Admitting Unavailabl [facility] Primary [facility] [place] Unavailable Phillip Guan Consulting Unavailable ROSE ., DR ALVAREZ Admitting Unavailable ROSE ., DR ALVAREZ Attending Unavailable ROSE ., DR ALVAREZ Consulting Unavailable [facility] Unavailable Phillip Guan Consulting Unavailable FLORES CAMPBELL Admitting Unavailable FLORES CAMPBELL Attending Unavailable FLORES CAMPBELL Consulting Unavailable [facility] Primary Care Unavailable [facility] Unavailable KARASIK ., DR EASLEY Attending Unavailabl e KARASIK ., DR EASLEY Consulting Unavailabl e KARASIK ., DR EASLEY Admitting Unavailabl e KARASIK ., DR EASLEY Attending Unavailabl e KARASIK ., DR EASLEY Consulting Unavailabl e KARASIK ., DR EASLEY Admitting Unavailabl e [facility] Unavailable KARASIK ., DR EASLEY Admitting Unavailabl e KARASIK ., DR EASLEY Attending Unavailabl e KARASIK ., DR EASLEY [facility]ing [facility] DR ALVAREZ Attending Unavailable ROSE ., DR ALVAREZ Consulting Unavailable ROSE ., DR ALVAREZ Admitting Unavailable KEVIN JOSHI Primary Care Unavailable Leigh Aguilar Consulting Unavailable Sybil Reis MD Primary Care Provider Sybil Reis Primary Care Physician Filemon Morataya Admitting Unavailable Filemon Morataya Attending Unavailable Filemon Morataya Referring Unavailable Matthew Robles Admitting Unavailable Matthew Robles Attending Unavailable Antonio ROSE Admitting Unavailable ROSEAntonio Attending Unavailable Lance Cortes Attending Unavailable Antonio ROSE Admitting Unavailable ROSE, Antonio Parikh Attending Unavailable Antonio ROSE Referring Unavailable Matthew Robles Attending Unavailable Antonio ROSE Attending Unavailable Antonio ROSE Attending Unavailable FLORES CAMPBELL Attending Unavailable FLORES CAMPBELL Attending Unavailable Sybil Ries Admitting Unavailable Sybil Reis Attending Unavailable Sybil Reis Referring Unavailable Lance Cortes Attending Unavailable Sybil Reis MD Unavailable Hima Gandhi DO Unavailable Kevin Joshi MD Primary Care Provider Tung MONCADA-CGail Attending Provider Gail Ruby Attending Unavailable Gail Ruby Admitting Unavailable Kevin Joshi Primary Care Unavailable Lance Cortes Attending Unavailable Feroz Jacob. Attending Unavailable BREN CAMPBELL Attending Unavailab RANDY Sparrow Admitting Unavailable RANDY MATIAS Attending Unavailable RANDY MATIAS Referring Unavailable Hajdari, Astrit H Attending Unavailable Hajdari, Astrit H Attending Unavailable Hatrent, Astrit H Attending Unavailable Sybil Reis MD Primary Care Provider SYBIL REIS Attending Unavailable HODAN MCKEON Attending Unavailab HIMA Zapien Attending Unavailable HODAN MCKEON Attending Unavailab GRACIA Mccormack Attending Unavailable HODAN MCKEON Attending Unavailab le HODAN MCKEON Attending Unavailab Antonio Owusu Attending Unavailable Hajdari, Astrit H Attending Unavailable Saima Moffett Attending Unavailable Rachna Mercado Attending Unavailable Leigh Rodriguez Attending Unavailable Leigh Rodriguez Attending Unavailable Sybil Reis MD Unavailable Hima Gandhi DO Unavailable Allergies Allergy ClassificationReported Allergen(s)Allergy TypeDate of OnsetReaction(s) FacilityCephalosporins (antibiotic) (1 source)Cephalexin; Translations: [cephalexin]Drug AllergyWeal (disorder) [facility] (20 sources)Cephalexin; Translations: [cephalexin]Drug Ntolviq09-20-5291Zddlmsu (qualifier value), Weal (disorder), Rash, [facility] (1 source)CephalexinDrug Depiden18-37-1419Tnu [facility] (1 source)CiprofloxacinDrug Dssipbv22-51-1992Izs [facility] (20 sources)CranberryAllergy to zwjpiyoua06-40-4297[facility] (6 sources)CranberryPropensity to adverse dolzkpmjy35-94-2526Sgxcluascyp [facility] Medications Current Medications MedicationDrug Class(es)DatesSig (Normalized)Sig (Original)acetaminophen 325 mg / HYDROcodone bitartrate 10 mg oral tablet (5 sources)Opioid AgonistStart: 11-72-6313ifen 1 tablet by mouth every four hours as needed for painHYDROcodone-acetaminophen ([place]) 10-325 MG tablet Take 1 tablet by mouth every 4 (four) hours if needed for moderate pain. 0 12/21/2022 [id number] 200 actuat albuterol 0.09 mg/actuat metered dose inhaler (10 sources)beta2-Adrenergic AgonistStart: 08-22-2023 End: 71-92-7637yczc 2 puff(s) by inhalation every four hoursalbuterol HFA 90 mcg/act inhaler 2 puffs every 4 (four) hours 08/22/2023 05/13/2024 Discontinued (Therapy completed)amoxicillin 875 mg oral tablet (2 sources)Penicillin-class AntibacterialStart: 01-09-2025 End: 04-76-9288mkpo 1 tablet by mouth every twelve hoursamoxicillin 875 mg Tab 875 mg = 1 tab(s), Oral, q12hr, X 5 day(s), # 10 tab(s), Refills(s) 0, Pharmacy: [facility], 174, cm, 01/09/25 15:09:00 EDT, Height/Length Dosing, 94.7, kg, 01/09/25 15:09:00 EDT, Weight Dosing Start Date: 01/09/25 Stop Date: 01/14/25 Status: Ordered Quantity:10.0 Unit: tab(s) Repeat number: 1 Indications: Otitis media, unspecified, left ear;Start: 01-23-2024 End: 45-73-9593klon 2 capsules by mouth twice dailyamoxicillin 500 mg Cap 1,000 mg = 2 cap(s), Oral, BID, X 7 day(s), # 28 cap(s), Refills(s) 0, Pharmacy: [facility], 172, cm, 01/23/24 15:19:00 EST, Height/Length Dosing, 102.9, kg, 01/23/24 15:19:00 EST, Weight Dosing Start Date: 01/23/24 Stop Date: 01/30/24 Status: Orderedamoxicillin 875 mg / clavulanate 125 mg oral tablet (1 source)Penicillin-class AntibacterialStart: 08-29-2024 End: 72-69-2861Xfmlwaiax 875 mg-125 mg Tab 1 tab(s), Oral, q12hr for 10 day(s), 20 tab(s), Refill(s) 0, [facility], 172, cm, 08/29/24 14:04:00 EDT, Height/Length Dosing, 97.7, kg, 08/29/24 14:04:00 EDT, Weight Dosing Start Date: 08/29/24 Stop Date: 09/08/24 Status: Ordered Quantity: 20.0 Unit: tab(s) Repeat number: 1 Indications: Acute suppurative otitis media without spontaneous rupture of ear drum, right ear;benzonatate 200 mg oral capsule (13 sources)Non-narcotic AntitussiveStart: 08-22-2023 End: 55-10-6523jlld 1 capsule by mouth three times daily as neededbenzonatate (Tessalon) 200 MG capsule Take 200 mg by mouth 3 (three) times a day as needed 08/22/2023 05/13/2024 Discontinued (Therapy completed)brompheniramine maleate 0.4 mg/ml / dextromethorphan hydrobromide 2 mg/ml / pseudoephedrine hydrochl oride 6 mg/ml oral solution (2 sources)alpha-Adrenergic Agonist, Uncompetitive W-mggvee-W-aspartate Receptor Antagonist, Sigma-1 AgonistStart: 10-58-5170jhgi 5 mL by mouth four times daily Bromfed DM oral syrup 5 mL, Oral, QID for cold symptoms, 200 mL, Refill(s) 0, [facility], 174, cm, 01/20/22 9:44:00 EDT, Height/Length Dosing, 94, kg, 01/20/22 9:44:00 EDT, Weight Dosing Start Date: 01/20/22 Status: Ordered cyclobenzaprine hydrochloride 10 mg oral tablet (20 sources)Muscle RelaxantStart: 04-24-2023 End: 78-10-5799wvwm 1 tablet by mouth three times daily as needed for muscle spasmscyclobenzaprine (Flexeril) 10 MG tablet TAKE 1 TABLET BY MOUTH THREE TIMES DAILY NEEDED for SPASM 04/24/2023 05/13/2024 Discontinued (Therapy completed)Start: 02-11-2022 End: 52-45-6334ifrp 1 tablet by mouth three times daily as needed for pain cyclobenzaprine 10 mg Tab 10 mg = 1 tab(s), Oral, TID, PRN Muscle pain, X 5 day(s), # 15 tab(s), Refills(s) 0, Pharmacy: [facility], 173, cm, 02/11/22 12:01:00 EST, Height/Length Dosing, 105, kg, 02/11/22 12:01:00 EST, Weight Dosing Start Date: 02/11/22 Stop Date: 02/16/22 Status: Orderedtake 1 tablet by mouth once for muscle spasmscyclobenzaprine (Flexeril) 10 MG tablet Take 10 mg by mouth 1 (one) time if needed for muscle spasms ActiveDaily Multiple Vitamins (4 sources)Start: 50-01-3977Nfpud Multiple Vitamins Oral, Daily, Refill(s) 0 Start Date: 04/09/20 Status: Ordereddextromethorphan hydrobromide 3 mg/ml / promethazine hydrochloride 1.25 mg/ml oral solution (6 sources)Phenothiazine, Uncompetitive Z-iujzyo-E-aspartate Receptor Antagonist, Sigma-1 AgonistStart: 38-98-1821sqoe 5 mL by mouth every six hours for coughdextromethorphan-promethazine 15 mg-6.25 mg/5 mL Oral Syrup 5 mL 5 mL, Oral, q6hr for cough, 240 mL, Refill(s) 0, [facility], 172.7, cm, 08/22/23 17:00:00 EDT, Height/Length Dosing, 98.4, kg, 08/22/23 17:00:00 EDT, Weight Dosing Start Date: 08/22/23 Status: Ordereddicyclomine hydrochloride 10 mg oral capsule (3 sources)AnticholinergicStart: 27-21-1191vwdn 1 capsule by mouth four times daily as needed for painBentyl 10 mg Cap 10 mg = 1 cap(s), Oral, QID, PRN Other (see comment), Abdominal pain/ cramping, # 8 cap(s), Refills(s) 0 Start Date: 08/25/21 Status: Ordereddoxycycline monohydrate 100 mg oral tablet (1 source)Tetracycline-class DrugStart: 08-26-2023 End: 31-28-8841uxzp 1 tablet by mouth twice dailydoxycycline monohydrate 100 mg oral tablet 100 mg = 1 tab(s), Oral, BID, X 7 day(s), # 14 tab(s), Refills(s) 0, Pharmacy: [facility], 172.7, cm, 08/26/23 10:11:00 EDT, Height/Length Dosing, 99, kg, 08/26/23 10:11:00 EDT, Weight Dosing Start Date: 08/26/23 Stop Date: 09/02/23 Status: Orderedfamotidine 20 mg oral tablet (4 sources)Histamine-2 Receptor AntagonistStart: 12-64-3078tbtc 1 tablet by mouth twice dailyPepcid 20 mg Tab 20 mg = 1 tab(s), Oral, BID, # 60 tab(s), Refills(s) 0, Pharmacy: [facility], 173, cm, 10/23/19 1:40:00 EDT, Height/Length Measured, 70.5, kg, 10/23/19 1:40:00 EDT, Weight Measured Start Date: 10/23/19 Status: Orderedfluticasone propionate 0.05 mg/actuat metered dose nasal spray (1 source)CorticosteroidStart: 01-23-2024 End: 71-80-6543tcnj 1 spray(s) nasal route twice dailyFlonase 0.05 mg/inh [place] 1 spray(s), Nasal, BID for 7 day(s), 16 gm, Refill(s) 0, each nostril, [facility], 172, cm, 01/23/24 15:19:00 EST, Height/Length Dosing, 102.9, kg, 01/23/24 15:19:00 EST, Weight Dosing Start Date: 01/23/24 Stop Date: 01/30/24 Status: Orderedibuprofen 800 mg oral tablet (5 sources)Nonsteroidal Anti-inflammatory DrugStart: 63-73-9900vrgj 1 tablet by mouth every eight hours as needed for painibuprofen 800 MG tablet Take 800 mg by mouth every 8 (eight) hours if needed for moderate pain. 0 12/21/2022 Active lidocaine 0.05 mg/mg medicated patch (2 sources)Antiarrhythmic, Amide Local AnestheticStart: 66-83-2208zpefeexqk Top 5% film Patch 1 patch(es), Topical, Daily, 7 patch(es), Refill(s) 0, apply 12 hours on and 12 hours off daily, [facility], 172, cm, 12/25/24 8:13:00 EDT, Height/Length Dosing, 91.5, kg, 12/25/24 8:13:00 EDT, Weight Dosing Start Date: 12/25/24 Status: Ordered Quantity: 7.0 Unit: patch(es) Repeat number: 1Start: 53-77-6964Raazcjab 5% Patch 1 patch(es), Topical, Daily Muscle pain, 7 EA, Refill(s) 0, apply 12 hours on and12 hours off daily, [facility], 173, cm, 02/11/22 12:01:00 EST, Height/Length Dosing, 105, kg, 02/11/22 12:01:00 EST, Weight Dosing Start Date: 02/11/22 Status: Xspurus90 hr metFORMIN hydrochloride 500 mg extended release oral tablet (13 sources)BiguanideStart: 07-17-2024 End: 42-69-0157ptlb 1 tablet by mouth every twenty-four hours at mealtime metFORMIN XR (Glucophage-XR) 500 MG 24 hr tablet Indications: Encounter for weight management Take 1 tablet (500 mg) by mouth in the evening. Take with meals Do not crush, chew, or split. 30 tablet 6007/17/2024 10/21/2024 DiscontinuedStart: 11-13-2023 End: 67-97-2482illx 1 tablet by mouth every twenty-four hours at mealtime metFORMIN XR (Glucophage-XR) 500 MG 24 hr tablet Indications: Weight gain Take 1 tablet (500 mg) bymouth in the evening. Take with meals Do not crush, chew, or split. 90 tablet 11/13/2023 05/13/2024Discontinued (Therapy completed) methocarbamol 500 mg oral tablet (5 sources)Muscle RelaxantStart: 06-19-2024 End: 31-89-4916wxguvqdxuglse (Robaxin) 500 MG tablet Take 1,000 mg by mouth 06/19/2024 07/17/2024 DiscontinuedMultivitamin preparation (12 sources)Start: 80-66-8697emgejbudgfto Refill(s) 0 Start Date: 01/23/23 Status: Orderednaproxen 500 mg oral tablet (3 sources)Nonsteroidal Anti-inflammatory DrugStart: 64-37-1055wsyi 1 tablet by mouth twice daily as needed for painnaproxen 500 mg Tab 500 mg = 1 tab(s), Oral, BID, PRN for pain, # 20 tab(s), Refills(s) 0, Pharmacy: [facility], 172, cm, 07/09/24 12:23:00 EDT, Height/Length Dosing, 101.4, kg, 07/09/24 12:23:00 EDT, Weight Dosing Start Date: 07/09/24 Status: Ordered Quantity: 20.0 Unit: tab(s) Repeat number: 1Start: 96-67-1840kogy 1 tablet by mouth twice daily as needed for painnaproxen 500 mg Tab 500 mg = 1 tab(s), Oral, BID, PRN Pain, with food, # 20 tab(s), Refills(s) 0, Pharmacy: [facility], 172, cm, 12/21/23 14:29:00 EDT, Height/Length Dosing, 99.8, kg,12/21/23 14:29:00 EDT, Weight Dosing Start Date: 12/21/23 Status: OrderedStart: 79-65-3013xnck 1 tablet by mouth twice daily as needed for painnaproxen 500 mg Tab 500 mg = 1 tab(s), Oral, BID, PRN for pain, # 20 tab(s), Refills(s) 0, Pharmacy: [facility], 173, cm, 02/11/22 12:01:00 EST, Height/Length Dosing, 105, kg, 02/11/22 12:01:00 EST, Weight Dosing Start Date: 02/11/22 Status: Pmxkrpr80 hr nicotine 0.583 mg/hr transdermal system (2 sources)Cholinergic Nicotinic AgonistStart: 05-02-2023 End: 54-57-3234uqkgu 1 dose transdermal route every twenty-four hoursnicotine (Nicoderm CQ) 14 MG/24HR patch Indications: Tobacco abuse Place 1 patch over 24 hours on the skin 1 (one) time each day at the same time 30 patch 0 05/02/2023 06/01/2023 ActiveNo Name (No Known Home Meds) (6 sources)Start: 06-13-1302Fb Name (No Known Home Meds) Active May 17, 2019 12:00amStart: 45-39-2450Bl Name (No Known Home Meds) Active May 17, 2019 1:00amphentermine hydrochloride 37.5 mg oral tablet (9 sources)Sympathomimetic Amine AnorecticStart: 02-05-2023 End: 85-35-7297ndgq 1 tablet by mouth before mealtimephentermine (Adipex-P) 37.5 MG tablet Indications: Obesity (BMI 30.0-34.9) , BMI 33.0-33.9,adult Take 1 tablet (37.5 mg) by mouth in the morning. Take before meals. 30 tablet 0 05/01/2023 ActiveStart: 64-62-4737tctp 37.5 mg by mouth once dailyAdipex-P 37.5 mg, Oral, Daily, Refills(s) 0 Start Date: 02/26/22 Status: OrderedpredniSONE 20 mg oral tablet (9 sources)Start: 08-29-2024 End: 64-25-3904upmw 2 tablets by mouth once dailypredniSONE 20 mg Tab 40 mg = 2 tab(s), Oral, Daily, X 5 day(s), # 10 tab(s), Refills(s) 0, Pharmacy: [facility], 172, cm, 08/29/24 14:04:00 EDT, Height/Length Dosing, 97.7, kg, 08/29/24 14:04:00 EDT, Weight Dosing Start Date: 08/29/24 Stop Date: 09/03/24 Status: Ordered Quantity: 10.0Unit: tab(s) Repeat number: 1 Indications: Bronchitis, not specified as acute or chronic;Start: 76-03-7859atzrcdNCAJ 20 mg Tab See Instructions, 3 po qam x3 days then 2po qam x3 days then 1 po qam x3 days.May stop the prednisone early if the cough resolves early, # 18 tab(s), Refills(s) 0, Pharmacy: [facility], 172.7, cm, 08/22/23 17:00:00 EDT, Height/Length Dosing, 98.4, kg, 08/22/23 17:00:00 EDT, Weight Dosing Start Date: 08/22/23 Status: OrderedStart: 49-76-6920gnfmmwHNGO 10 mg Tab = 1 -, Oral, As Directed, Take 3 tabs by mouth daily x3 days, then 2 tabs daily x3 days, then 1 tab daily x3 days., # 18 tab(s), Refills(s) 0, Pharmacy: [facility], 172.7, cm, 04/24/23 17:12:00 EST, Height/Length Dosing, 99, kg, 04/24/23 17:12:00 EST, Weight Dosing Start Date: 04/24/23 Status: OrderedPrenatal Vit-Fe Fumarate-FA ( Plus/Iron) 27-1 MG tablet (5 sources)Start: 11-27-2022 End: 78-21-9376xyez 1 tablet by mouth in the morningPrenatal Vit-Fe Fumarate-FA ( Plus/Iron) 27-1 MG tablet Indications: Third trimester Take 1 tablet by mouth in the morning. 30 tablet 0 11/27/2022 11/27/2023 Active promethazine hydrochloride 12.5 mg oral tablet (3 sources)PhenothiazineStart: 07-10-2024 End: 58-80-2310wwhj 1 tablet by mouth every six hours as needed for nausea and vomiting and nausea and nauseapromethazine (Phenergan) 12.5 MG tablet Indications: Nausea Take 1 tablet (12.5 mg) by mouth every 6 (six) hours if needed for nausea or vomiting for up to 30 doses Take 1 tablet by mouth every 6 hours as needed for nausea. 30 tablet 2 07/10/2024 07/17/2024 Discontinued rimegepant 75 mg disintegrating oral tablet (12 sources)Start: 06-19-2024 End: 22-27-7375hpjx 1 tablet by mouth onceRimegepant Sulfate (Nurtec) 75 MG tablet dispersible Indications: Intractable chronic migraine without aura and without status migrainosus (CMS/HCC) Take 1 tablet by mouth 1 (one) time if needed (onset of migraine may take up to 16 pills per month) 16 tablet 11 06/19/2024 07/17/2024 DiscontinuedStart: 02-29-2024 End: 71-02-8067Xrwlstvsne Sulfate (Nurtec) 75 MG tablet dispersible Indications: Intractable chronic migraine without aura and without status migrainosus (CMS/HCC) Take 75 mg by mouth 1 (one) time if needed (1 po onset of migraine up to 16 times a month) 16 tablet 11 02/29/2024 03/30/2024 Active End: 38-67-9346qqma 1 tablet by mouth once dailyRimegepant Sulfate (Nurtec) 75 MG tablet dispersible Take 75 mg by mouth Daily 02/29/2024 Discontinued (Reorder)Zofran ODT 4 mg Tab-Dis (4 sources)Start: 33-68-8451envw 1 tablet by mouth every eight hours as needed for nauseaZofran ODT 4 mg Tab-Dis 4 mg = 1 tab(s), Oral, q8hr, PRN Nausea/Vomiting, # 12 tab(s), Refills(s) 0, Pharmacy: [facility], 172, cm, 07/09/24 12:23:00 EDT, Height/Length Dosing, 101.4,kg, 07/09/24 12:23:00 EDT, Weight Dosing Start Date: 07/09/24 Status: Ordered Quantity: 12.0 Unit: tab(s) Repeat number: 1Start: 55-45-2727klaj 1 tablet by mouth every eight hours as needed for nauseaZofran ODT 4 mg Tab-Dis 4 mg = 1 tab(s), Oral, q8hr, PRN Nausea/Vomiting, # 12 tab(s), Refills(s) 0Start Date: 08/25/21 Status: Ordered Completed/Discontinued Medications MedicationDrug Class(es)DatesSig (Normalized)Sig (Original)Albuterol (Eqv-ProAir HFA) 90 mcg/inh inhalation aerosol (9 sources)Start: 26-58-7319hkqs 6.7 g by inhalation every six hoursAlbuterol (Eqv-ProAir HFA) 90 mcg/inh inhalation aerosol 180 mcg, 2 inh, Inhalation, q6hr, 6.7 gm, Refill(s) 0, [facility], 172, cm, 08/29/24 14:04:00 EDT, Height/Length Dosing, 97.7,kg, 08/29/24 14:04:00 EDT, Weight Dosing Start Date: 08/29/24 Status: Ordered Quantity: 6.7 Unit: g Repeat number: 1 Indications: Bronchitis, not specified as acute or chronic;Start: 50-11-3615ihxt 2 puff(s) by inhalation every four hoursAlbuterol (Eqv-ProAir HFA) 90 mcg/inh inhalation aerosol 2 puff(s), Inhalation, q4hr, 18 gm, Refill(s) 0, [facility], 172.7, cm, 08/22/23 17:00:00 EDT, Height/Length Dosing, 98.4, kg,08/22/23 17:00:00 EDT, Weight Dosing Start Date: 08/22/23 Status: Ordered onabotulinumtoxina 200 unt injection (20 sources)Acetylcholine Release InhibitorStart: 10-21-2024 End: 16-61-9114ikalbhqihelitpiqlZ (Botox) injection 200 UnitsStart: 10-21-2024 End: 34-53-7737tcuslu 200 [IU] by intramuscular injection [id number] Units, Intramuscular, Once, On Sun10/21/24 at 0945, For 1 dose, Charging context for this clinic-administered medication: Medically Necessary/InsuranceStart: 00-17-7574mlnjnhdqylenokmsuR (Botox 200u vial IJ Soln) 200 units injection Indications: Intractable chronic migraine without aura and without status migrainosus Inject 200 units of Botox intramuscular into face and neck muscles every 90 days for Chronic Migraines. 1 each 3 10/13/2024 ActiveStart: 06-19-2024 End: 69-76-6669uuudottdhbyjdyzquT (Botox) injection 200 UnitsStart: 06-19-2024 End: 03-09-8067vyhvqy 200 [IU] by intramuscular injection [id number] Units, Intramuscular, Once, On Sun06/19/24 at 1030, For 1 dose, Charging context for this clinic-administered medication: Medically Necessary/InsuranceStart: 02-29-2024 End: 84-89-4807bkbawfdsoeosdexwkZ (Botox) injection 200 UnitsStart: 02-29-2024 End: 24-16-2580amkirr 200 [IU] by intramuscular injection [id number] Units, Intramuscular, Once, On Sun02/29/24 at 0930, For 1 dose, Charging context for this clinic-administered medication: Medically Necessary/InsuranceStart: 11-22-2023 End: 87-18-3997zfonohoaphonkigrpW (Botox) injection 200 UnitsStart: 11-22-2023 End: 08-91-7706snglcg 200 [IU] by intramuscular injection [id number] Units, Intramuscular, Once, On [place] 11/22/23 at 1215, For 1 dose, Charging context for this clinic-administered medication: Medically Necessary/InsuranceStart: 10-31-2023 End: 98-22-5888rjroieyvqasxsegzdQ (Botox 200u vial IJ Soln) 200 units injection Indications: Migraine Inject up to200 units intramuscular into face and neck muscles every 90 days for chronic migraines. 1 each 3 10/31/2023 07/17/2024 Discontinuedcephalexin 500 mg oral capsule (6 sources)Cephalosporin AntibacterialStart: 03-10-2019 End: 09-92-1060lsvy 1 capsule by mouth twice dailyCephalexin (Keflex) 500 mg capsule Discontinued 500 MG PO Twice daily March 10, 2019 1:00am May 17, 2019 7:39pmciprofloxacin 500 mg oral tablet (4 sources)Quinolone AntimicrobialStart: 26-09-1756jpwp 1 tablet by mouth twice dailyCipro 500 mg Tab 500 mg = 1 tab(s), Oral, BID, Take one tab by mouth twice a day for seven days, # 14 tab(s), Refills(s) 0 Start Date: 11/20/20 Status: Qrglwwu81 hr venlafaxine 75 mg extended release oral capsule (6 sources)Serotonin and Norepinephrine Reuptake InhibitorStart: 05-22-2019 End: 06-78-4743hnem 1 capsule by mouth once dailyVenlafaxine 75 mg Capsule,Extended Release 24hr Discontinued 75 MG PO Daily May 22, 2019 1:00am April 07, 2021 12:09pm Problems Active Problems Problem ClassificationProblemDateDocumented DateEpisodic/ChronicAbdominal pain (5 sources)Abdominal pain; Translations: [Unspecified abdominal pain]Onset: 71-23-3584LefqohinWuikscvsiogvlp/social admission (2 sources)Patient encounter status; Translations: [Persons encountering health services in other specified circumstances]55-00-3390BelvhgrsNjarsgq disorders (2 sources)Anxiety; Translations: [Anxiety disorder, unspecified]05-13-2024 ChronicCalculus of urinary tract (20 sources)Kidney stone; Translations: [Calculus of kidney]Onset: 12-26-2021 96-92-1026JmjgfdezAiaxuot obstructive pulmonary disease and bronchiectasis (1 source)Bronchitis; Translations: [Bronchitis, not specified as acute or chronic]Onset: 69-37-0599BvrzqeubDyqlizvh of lower limb (1 source)Closed fracture of phalanx of foot; Translations: [Unspecified fracture of unspecified toe(s), initial encounter for closed fracture]Onset: 53-04-7244UofbpujlKyapvvkprtolr symptoms and ill-defined conditions (20 sources)Genuine stress incontinence; Translations: [Stress incontinence (female) (male)]Onset: [id number]; including migraine (20 sources)Migraine without aura, not refractory ; Translations: [Migraine without aura, not intractable, without status migrainosus]Onset: 11-02-2022 93-96-7118VgnxnnwFcenycwt; including migraine (1 source)Headache; Translations: [Headache, unspecified]Onset: 02-26-2022 EpisodicImmunizations and screening for infectious disease (1 source)Encounter for screening for human papillomavirus (HPV); Translations: [ENC SCREENING HUMAN PAPILLOMAVIRUS]Onset: 18-22-4712IibnlaneHtub disorders (20 sources)Recurrent major depression; Translations: [Major depressive disorder, recurrent, unspecified]Onset: [id number] gastroenteritis (1 source)Noninfectious enteritis; Translations: [Noninfective gastroenteritis and colitis, unspecified]Onset: 53-67-5162VdgwpkarBqklcemulcf chest pain (3 sources)Right sided chest pain; Translations: [Chest pain, unspecified]Onset: 227061-18-5376MfqltuluOqmbj diseases of kidney and ureters (20 sources)Renal rlbd52-31-6858DapyetzTcvxr diseases of veins and lymphatics (5 sources)Venous hypertension of lower limb; Translations: [Chronic venous hypertension (idiopathic) without complications of left lower extremity] 28-68-0814NlkizgzPqyrg diseases of veins and lymphatics (4 sources)Chronic venous hypertension (idiopathic) without complications of left lower extremity; Translations: [Chronic venous hypertension without complications]28-63-4735IpcohzwPabxs female genital disorders (2 sources)Cyst of uterine adnexa; Translations: [Unspecified condition associated with female genital organs and menstrual cycle]44-81-6557Mlypsyee Other non-traumatic joint disorders (2 sources)Hip pain; Translations: [Pain in left hip]18-14-3591LpyuwoknOpdmm nutritional; endocrine; and metabolic disorders (20 sources)Body mass index 30+ - obesity; Translations: [Body mass index (BMI) 33.0-33.9, adult]44-26-5249NhcdyydTjgeb nutritional; endocrine; and metabolic disorders (20 sources)Morbid obesity; Translations: [Morbid (severe) obesity due to excess calories]Onset: 080767-14-8915FcbwwpeGyutz nutritional; endocrine; and metabolic disorders (4 sources)Obese class I; Translations: [Obesity, unspecified]23-47-4978Dauywcd Other and delivery including normal (9 sources)Encounter for supervision of other normal , second trimester; Translations: [Encounter forsupervision of normal , unspecified, first trimester]Onset: 85-56-9978LvdrunprJmkcy screening for suspected conditions (not mental disorders or infectious disease) (4 sources)Encounter for screening for malignant neoplasm of cervix; Translations: [ENC SCREENING MALIG NEOPLASM CERV]Onset: 79-30-0331DuwzdamrShwpq upper respiratory infections (3 sources)Acute upper respiratory infection; Translations: [Acute upper respiratory infection, unspecified]Onset: 10-83-1425TrsistuaBmhquy media and related conditions (3 sources)Non-suppurative otitis media; Translations: [Unspecified nonsuppurative otitis media, left ear]Onset: 52-17-2000VuykedihXapuqojno (except that caused by tuberculosis or sexually transmitted disease) (1 source)Pneumonia; Translations: [Pneumonia, unspecified organism]Onset: 99-42-7259XjtdhxpxMketjiwh codes; unclassified (20 sources)Tobacco user; Translations: [Tobacco use]31-71-3708SmgfjsxpNwdrevw on above:Added secondary to social history documentation.Residual codes; unclassified (1 source)10 weeks gestation of ; Translations: [10 WEEKS GESTATION OF ]Onset: 34-06-5086DcbnzdwtFcgirfqiuhj; intervertebral disc disorders; other back problems (1 source)Backache; Translations: [Dorsalgia, unspecified]Onset: 02-11-2022 EpisodicSprains and strains (2 sources)Sprain of right ankle; Translations: [Sprain of unspecified ligament of right ankle, initial encounter]Onset: 43-16-8319YiedihkfWazurupwj-related disorders (20 sources)Smoker; Translations: [Nicotine dependence, unspecified, uncomplicated]Onset: 138786-75-8675ZgfjcigMudubam on above:Added secondary to documentation in Social History.Unclassified (1 source)Suicidal ideations / R45.851(ICD-10)Onset: 27-93-5006Euzokihczmfa (20 sources)PregnancyOnset: 10-03-2005 Resolved: 408528-75-4032Pifxnwqwtqlh (4 sources)Tobacco use during ( Confirmed )08-82-4702Orxzbsvvletx (20 sources)Tobacco use during chtydxmbw23-78-7885Nrdoive tract infections (20 sources)Chronic cystitis; Translations: [Other chronic cystitis without hematuria]Onset: 254821-71-2188Yujmfnn Past or Other Problems Problem ClassificationProblemDateDocumented DateEpisodic/ChronicBlindness and vision defects (20 sources)Blurring of visual image; Translations: [Other visual disturbances] Onset: 468939-60-7862VxoeqetdDnrizkqxdmdpc symptoms and ill-defined conditions (20 sources)H/O: kidney disease; Translations: [H/O: urethral stricture]Onset: 425790-11-3219IkjizkprHhtdcjzef (4 sources)Viral hepatitis C; Translations: [Unspecified viral hepatitis C without hepatic coma]Onset: 03-23-2021 Resolved: 82-29-9677VsjdvonjEunvzpr and fatigue (20 sources)Fatigue; Translations: [Other fatigue]Onset: EpisodicOther complications of (5 sources)Viral hepatitis complicating , childbirth and the puerperium; Translations: [Viral hepatitis complicating , unspecified trimester]Onset: 490946-18-7408XvkurkswMpell complications of (20 sources)Tobacco smoking in mother complicating ; Translations: [Smoking (tobacco) complicating , unspecified trimester]Onset: 216671-80-4227OodfrhyaHjixe diseases of kidney and ureters (20 sources)Hydronephrosis; Translations: [Unspecified hydronephrosis]Onset: 251617-23-6363FirkdunuLhzhm diseases of kidney and ureters (20 sources)Stricture of ureter; Translations: [Crossing vessel and stricture of ureter without hydronephrosis]Onset: 694675-27-1907CrmwqjxuGfojn nutritional; endocrine; and metabolic disorders (2 sources)Weight gain; Translations: [Abnormal weight gain]89-04-1885Hxgdkgov Previous (20 sources); Translations: [Maternal care for unspecified type scar from previous delivery]Onset: 369680-28-9166EekcabnqEvmvmgo tract infections (20 sources)Lower urinary tract infectious disease; Translations: [Urinary tract infectious disease]Onset: 402513-16-8272NvfpjczjFdadenxp veins of lower extremity (20 sources)Varicose veins of lower extremity; Translations: [Varicose veins of bilateral lower extremities with pain]Onset: 983362-24-6900Erkkhvum Results Test NameValueInterpretationReference RangeFacilityAmbulatory Visit Summaryon 33-45-4445Pxivouugdl Visit SummaryAmbulatory Visit Summary FLORES HOUSER :1985 Visit Date:01/09/2025 Ambulatory Visit Instructions Your Diagnosis Otitis media, left Your Care Team Attending Physician - Jess GARCIA, Magalie Primary Care Physician - Smiley GIMENEZ, Sybil Mendoza This Is Your Medications List albuterol (Albuterol (Eqv-ProAir HFA) 90 mcg/inh inhalation aerosol) lidocaine topical (lidocaine Top 5% film Patch) Procedures Performed Nephrostomy tube (05/11/2015), Cystoscopy (04/14/2015), Cystoscopy (03/08/2015), cystoscopy, urethral dilatation, right retrograde pyelogram, right double J ureteral stent placement under fluoroscopic guidance (10/26/2014), section (09/05/2014), Exploratory laparotomy. Discharge Vitals Temperature (Oral) 36.7 ???C Heart Rate (Peripheral) 85 Blood Pressure 118/74 Height 174 cm Height 69 in Weight 94.7 kg Weight 208.778 lb BMI 31.28 What to do next Scheduled Follow-Up Appointments Sunday 12:45 PM EST With: ROSE GIMENEZ, Antonio Parikh Where: [facility] [address] [address]- Medications What How Much When Why Instructions Unchanged albuterol (Albuterol (Eqv-ProAir HFA) 90 mcg/ inh inhalation aerosol) 2 Inhalation Inhalation Every 6 hours Bronchitis Unchanged lidocaine topical (lidocaine Top 5% film Patch) 1 Patches Topical Every day apply 12 hours on and 12 hours off daily Allergies Keflex (Hives) Problems Ongoing - Any [...] you for choosing us for your care. Patient Portal You may access all of your results and other medical record information on our secure patient portal. If you are not signed up for this yet, please contact [facility] [employer] at [phone] to get signed up today. Language Information Language assistance services are available as needed. [facility] Medicine Office/Clinic Noteon 12-04-3474Ufdjlw Medicine Office/Clinic NoteFabenjamin [facility] Office/Clinic Note Chief Complaint EAR PAIN HPI Staff Flores is a 39yr old female presenting with left ear pain and pressure. pt states the ear pain isradiating into left jaw. History of Present Illness I, Tran Marsh [facility] Student, attest that I gathered the history and performed the physical and documented the note for this visit under the direction of RADHA Aleman. I have reviewed and verified the staff HPI to be accurate for this encounter. Patient is a 39 year old female who presents with left ear pain and pressure for the pastcouple days. Patient states the pain is now radiating down to her jaw and lower wisdom tooth. Denies any fever or chills. She does get seasonal allergies and nasal congestion this time of year and has had ear infections due to drainage and allergies in the past. Cough but states due to smoking, no chest pain, wheezing or SOB. Has not had improvement with OTC allergy medication. Review of Systems PHQ Score Initial Depression Screen Score: 0 SCORE ROS negative unless otherwise stated in HPI. Physical Exam Vitals & Measurements T: 36.7 ???C(Oral) HR: 85(Peripheral) BP: 118/74 SpO2: 96% HT: 69 in HT: 174 cm WT: 94.7 kg WT: 208.778 lb BMI: 31.28 General: Well developed, well nourished, in no acute distress Eyes: Pupils equal, round, and reactive to light. Conjunctivae and sclerae normal, and extraocular movements intact Ears: No deformity or lesion of external ear. Canal and TM appear normal in right ear. TM???s intact bilaterally, but inflamed on left ear with yellowish fluid noted behind Left TM, no bulging. Hearing grossly normal to conversational speech Nose: mild nasal mucosa inflammation and edema Mouth: Mucous membranes moist. Normal oropharynx, and posterior pharynx without lesions or exudates. Tongue normal multiple fillings of teeth, no signs of inflamed gum tissue or cracked teeth Neck: no adenopathy Lungs: Normal respiratory effort and clear to auscultation Cardio: regular rate and rhythm, no murmur Abdomen: not assessed Musculoskeletal: not assessed Extremity: not assessed Neurologic: Grossly normal Skin: No rashes, ulcerations, or suspicious lesions Mental Status: Alert and oriented x3. Normal mood and affect Assessment/Plan Almond tooth/gums on lower jaw appears normal. Due to yellowish fluid behind left TM will treat with Amoxicillin 875mg PO BID x 5 days. Finish course. Fluids/rest, PRN tylenol/ibuprofen for pain and/or fever encouraged. Encouraged to follow up with PCP for recheck in about 5 days to ensure infection resolving, especially if symptoms worsening or fevers occur. Patient verbalized understanding of treatment plan. After having a euov-zk-yccb interaction with the patient, I personally performed the physical exam and was responsible for the assessment/plan. I have personally reviewed and verified the documentation by the student and made correction as needed. Magalie Mercado, SUGAR PRESSER-C 1. Otitis media, left (H66.92: Otitis media, unspecified, left ear) see above. Follow-up With When Contact Information Smiley GIMENEZ, Sybil Mendoza [address] [place] [address]- Additional Instructions: Patient Education Otitis Media, Adult, Fxkb-vr-Soyq Problem List/Past Medical History Ongoing Bilateral kidney [...] Albuterol (Eqv-ProAir HFA) 90 mcg/inh inhalation aerosol, 180 mcg= 2 inh, Inhalation, q6hr, Not taking lidocaine Top 5% film Patch, 1 patch(es), Topical, Daily, Not taking Allergies Keflex (Hives) Social History Alcohol - Denies Alcohol Use, 09/03/2012 1-2 times per month, 12/25/2024 Current, 04/09/2020 Current, 1-2 times per month, 09/14/2019 Current, 05/16/2019 Substance Abuse - Denies Substance Abuse, 09/03/2012 Marijuana, 12/25/2024 Current, 04/09/2020 Current, 05/16/2019 Tobacco - Low Risk, 12/08/2019 10 or more cigarettes (1/2 pack or more)/day in last 30 days Tobacco Use:. Cigarettes, 01/09/2025 10 or more cigarettes (1/2 pack or more)/day in last 30 days Tobacco Use:. Cigarettes, 08/29/2024 Former smoker, quit more than 30 days ago Tobacco Use:. Never Smokeless Tobacco Use:. Cigarettes, Household tobacco concerns: No. Yes, 01/23/2024 Immunizations Vaccine Date Status diphtheria/pertussis, acel/tetanu (more content not included)...[facility] HospitalComment on above:Result Comment: Electronically Signed By: Magalie Ingram\.br\Date and Time Signed: 01/09/25 16:08 EDT\.br\Electronically Co-Signed By: Tran Puga\.br\Date and Time Co-Signed: 01/09/25 15:48 EDTED Clinical Summaryon [id number] Clinical SummaryED Clinical Summary [place] [id number] ED Clinical Summary Person Information Name: FLORES HOUSER [facility] Age: 39 Years : 1985 Sex: Female Language: Anguillan PCP: Sybil Reis MD Marital Status: Single Phone: [phone] Visit Id: Visit Reason: Fall; Shoulder pain-swelling; FELL UP THE STAIRS ON ARM, PAIN Speciality: Acuity: 4 Enc Type: Emergency Med Service: Emergency Arrival: 12/25/2024 08:03:05 Discharge: 12/25/2024 09:35:14 LOS: 000 01:32 Checkin: 12/25/2024 08:03:05 Checkout: 12/25/2024 09:35:14 Dispo Type: Home (Routine DC) EVENTS: Event Name Event Status Request Date/Time Start Date/Time Complete Date/Time Arrive Complete 12/25/2024 08:03:05 12/25/2024 08:03:05 12/25/2024 08:03:05 Document Home Meds Request 12/25/2024 08:03:05 Triage Complete 12/25/2024 08:03:05 12/25/2024 08:13:17 12/25/2024 08:13:17 Bed Assign Complete 12/25/2024 08:03:36 12/25/2024 08:03:36 12/25/2024 08:03:36 Dr Exam Complete 12/25/2024 08:03:36 12/25/2024 08:04:42 12/25/2024 08:04:42 RN Exam Complete 12/25/2024 08:03:36 12/25/2024 08:21:23 12/25/2024 08:21:23 Registration Complete 12/25/2024 08:04:42 12/25/2024 08:58:29 12/25/2024 08:58:29 Dr Exam Complete 12/25/2024 08:05:38 12/25/2024 08:05:38 12/25/2024 08:05:38 X-Ray Complete 12/25/2024 08:13:26 12/25/2024 08:15:45 12/25/2024 08:52:01 Meds Admin Complete 12/25/2024 08:13:26 12/25/2024 08:17:11 Wet Read Request 12/25/2024 08:52:01 Reg Complete Request 12/25/2024 08:58:29 Reg Bed Request Complete 12/25/2024 08:58:29 12/25/2024 08:58:29 12/25/2024 08:58:29 Discharge Complete 12/25/2024 09:25:24 12/25/2024 09:35:20 12/25/2024 09:35:20 Transfer Complete 12/25/2024 09:35:20 12/25/2024 09:35:20 12/25/2024 09:35:20 ADDRESS: [address] [place] [id number] PHYS DOC NOTES: MEDICAL INFORMATION: Prescriptions Given: New Medications [facility], [address] [place], [place] [id number], [phone] acetaminophen-hydrocodone ([place] 325 mg-5 mg oral tablet) 1 Tablets By Mouth every 6 hours as needed for pain for 3 Days. Refills: 0. lidocaine topical (lidocaine Top 5% film Patch) 1 Patches Topical every day. apply 12 hours on and 12 hours off daily. Refills: 0. naproxen (naproxen 500 mg Tab) 1 Tablets By Mouth 2 times a day for 10 Days. Refills: 0. tizanidine (tiZANidine 2 mg Tab) 1 Tablets By Mouth every 8 hours for 7 Days. Refills: 0. Medications to Continue with No Changes Other Medications albuterol (Albuterol (Eqv-ProAir HFA) 90 mcg/inh inhalation aerosol) 2 Inhalation Inhalation every 6 hours. Refills: 0. PATIENT EDUCATION INFORMATION: Instructions: Rib Contusion; Thoracic Strain; Shoulder Sprain Follow up: With: Address: When: Deon Fernández [address] [place] [address] Business (1) In 3 days 12/28/2024 With: Address: When: Sybil Reis [address] [place] [address] Business (1) In 3 days 12/28/2024 Comments: Please call primary care office for close outpatient follow-up. Take medication as prescribed. Recommend icing the area frequently throughout the day. Continue to monitor symptoms. If you are not getting better with initial conservative management please call orthopedic office listed below for outpatient follow-up. Return to ED if symptoms worsen or new symptoms arise. DIAGNOSIS: Contusion of rib on left side; Sprain of left shoulder; Strain of thoracic back regionJluis Arredondo Medical CenterED Note-Physicianon [id number] Note-PhysicianED Note-Physician Basic Information Time Seen: Izaiah Dinh PA-C 12/25/2024 08:04 Chief Complaint fell onto left shoulder after tripping on stairs. pt c/o pain in left scapula area, denies arm painbut states pain keeps taking her breath away History of Present Illness Patient is a 39-year-old female that presents today for evaluation after a fall. Patient states that she fell going up to steps into her house this morning. She landed on her left side. She has been having pain in her left rib area extending up towards her left scapula that is taking her breath away. She does not feel short of breath at baseline. Pain worsens when she takes a big deep breath. Dayne es anterior chest pain. Denies any arm pain. Patient states the pain radiates up to her shoulder. She did not hit her head or lose consciousness. She is not on any blood thinners. Denies any nausea, vomiting, abdominal pain. Review of Systems No other aggravating or relieving factors no other associated symptoms no other prior treatments orcomplaints. Family: Reviewed and noncontributory Social: lives at home Review of systems negative unless otherwise specified in the HPI. Physical Exam Vitals & Measurements T: 36.7 ???C(Oral) HR: 71(Peripheral) RR: 20 BP: 112/56 SpO2: 97% HT: 172 cm WT: 91.5 kg BMI: 30.93 Nurses note and vital signs reviewed and noted. General: The patient appears well but does appear in severe pain walking around the room crying throughout the exam. GCS = 15. Skin: Warm, dry, no pallor noted. Head: Normocephalic, atraumatic Neck: Supple, trachea mid-line, no tenderness, no lymphadenopathy. No cervical spinal tenderness. The patient has no step-offs or crepitus noted Eyes: PERRLA, EOMI ENT: No reilly sign, no raccoon eyes, no blood in posterior oropharynx, no dental injuries Cardiovascular: Regular Rate and Rhythm, normal peripheral perfusion Respiratory: no distress, no accessory muscle use, no obvious wheezing Chest Wall: Left rib tenderness, no flail chest, contusion, abrasion, or signs of trauma. Back: Back has no evidence of trauma, including contusion, abrasion, swelling or ecchymosis. The patient had no evidence of step-offs or crepitus noted. No tenderness to palpation. Musculoskeletal: Diffuse tenderness palpation to the left shoulder extending down the left scapula and into the left rib cage. Pulses at femoral, DP, PT, and popiteal were 2+ bilaterally. Moves all four extremities in all modalities with 5/5 strength. GI: Soft, no tenderness to palpation, no masses appreciated. No rebound, guarding, or rigidity noted. Neurological: A&O, normal equal clinical systems analyst strength, normal speech, normal coordination, normal motor, normal sensory. Psychiatric: Cooperative Medical Decision Making Patient is a 39-year-old female who presents today for evaluation after a fall. She was going up 2 steps in her house this morning and fell on her left side. Did not hit her head or lose consciousness. She is on a blood thinners. Has been having pain in the left shoulder and left rib area extendingup into the left scapula. On exam patient is in apparent pain walking around the room crying throughout the exam. GCS of 15. No cervical spinal or back tenderness. Tenderness diffusely to the left shoulder extending down the left scapula and into the left rib cage. CTA to bilateral lung lopez. RRR. Abdomen soft nontender. Patient is given a dose of morphine and x-rays were obtained. Initial x-rays interpreted by myself are negative. Given patient severe pain I did have radiology review the imaging and the x-rays of the ribs with PA chest, left shoulder, cervical spine are all negative for any acute traumatic abnormality. Patient is feeling better with morphine. Symptoms likely secondary tocontusion of rib on left side, sprain of left shoulder, strain of thoracic back region. Possible underlying small rib fracture not seen on imaging. We discussed all this at length. Will start her on medication for symptomatic relief at this time. She will be discharged home with close follow-up with her PCP. I did provide her with Dr. Fernández orthopedics to follow-up with if not better with initialconservative management. Discussed icing the area. Return to ED precautions were reviewed with the patient at length. Assessment/Plan Contusion of rib on left side (S20.212A: Contusion of left front wall of thorax, initial encounter) Sprain of left shoulder (S43.402A: Unspecified sprain of left shoulder joint, initial encounter) Strain of thoracic back region (S29.012A: Strain of muscle and tendon of back wall of thorax, initial encounter) Orders: acetaminophen-hydrocodone, 1 tab(s), Oral, q6hr for pain for 3 day(s), 10 tab(s), Refill(s) 0, [facility], 172, cm, 12/25/24 8:13:00 EDT, Height/Length Dosing, 91.5, kg, 12/25/24 8:13:00 EDT, Weight Dosing lidocaine topical, 1 patch(es), Topical, Daily, 7 patch(es), Refill(s) 0, apply 12 hours on and 12 hours off daily, [facility] (more content not included)...Berger HospitalComment on above:Result Comment: Electronically Signed By: Fabrizio CORREIA, Izaiah Muñoz\.br\Date and Time Signed: 12/25/2508:27 EDT\.br\Electronically Co-Signed By: Zuhair Chen, Saima Cordvoa\.br\Date and Time Co-Signed: 12/25/24 12:34 EDTED Patient Summaryon 12-25-2024 ED Patient SummaryED Patient Summary [address] [address] Patient Discharge Instructions Person Information Name: FLORES HOUSER Age: 39 Years Arrival Date: 12/25/2024 08:03:05 Discharge Diagnosis: Contusion of rib on left side; Sprain of left shoulder; Strain of thoracic back region Primary Care Physician: Sybil Reis MD Provider Information Primary Provider: Saima Moffett M.D. [employer] Machine Tender:Izaiah Dinh PA-C The exam and treatment you received in the Emergency Department were for an urgent problem and are not intended as complete care. It is important that you follow up with a doctor, nurse practitioner,or physician???s microbiology lab assistant for ongoing care. If your symptoms become worse or you do not improve asexpected and you are unable to reach your usual health care provider, you should return to the Emergency Department. We are available 24 hours a day. FLORES HOUSER has been given the following list of patient education materials, prescriptions and follow-up instructions: Follow-up Instructions: With: Address: When: Deon Fernández [address] [place] [address] Business (1) In 3 days 12/28/2024 With: Address: When: Sybil Reis [address] [place] [address] [place] [address] Business (1) In 3 days 12/28/2024 Comments: Please call primary care office for close outpatient follow-up. Take medication as prescribed. Recommend icing the area frequently throughout the day. Continue to monitor symptoms. If you are not getting better with initial conservative management please call orthopedic office listed below for outpatient follow-up. Return to ED if symptoms worsen or new symptoms arise. In the event that this physician does not participate in your insurance network, please consult with your insurance company to find a nearby participating provider. Patient Education Materials: Rib Contusion; Thoracic Strain; Shoulder Sprain A MESSAGE TO ALL PATIENTS REGARDING OPIOIDS PRESCRIPTION OPIOIDS: WHAT YOU NEED TO KNOW Prescription opioids can be used to help relieve wapyhjws-bd-swxdux pain and are often prescribed following a [...] as well, even when taken as directed: ??? Tolerance???meaning you might need to take more of the medication for the same pain relief ??? Physical dependence???meaning you have symptoms of withdrawal when a medication is stopped ??? Increased sensitivity to pain ??? Constipation ??? Nausea, vomiting, and dry mouth ??? Sleepiness and dizziness ??? Confusion ??? Depression ??? Low levels of testosterone that can result in lower sex drive, energy, and strength ??? Itching and sweating RISKS ARE GREATER WITH: ??? History of drug misuse, substance use disorder, or overdose ??? Mental health conditions (such as depression or anxiety) ??? Sleep apnea ??? Older age (65 years and older) ??? Avoid alcohol while taking prescription opioids. Also, unless specifically advised by your health care provider, medications to avoid include: ??? Benzodiazepines (such as Xanax or Valium) ??? Muscle relaxants (such as Soma or Flexeril) ??? Hypnotics (such as Ambien or Lunesta) ??? Other prescription opioids KNOW YOUR OPTIONS Talk to your health care provider about ways to manage your pain that don???t involve prescription opioids. Some of these options may actually work better and have fewer risks and side effects. Options may include: ??? Pain relievers such as acetaminophen, ibuprofen, and naproxen ??? Some medication that are also used for depression or seizures ??? Physical therapy and exercise ??? Cognitive behavioral therapy, a psychological, goal-directed approach, in which patients learn how to modify physical, behavioral, and emotional triggers of pain and stress. IF YOU ARE PRESCRIBED OPIOIDS FOR PAIN: ??? Never take opioids in greater amounts or more often than prescribed. ??? Follow up with your primary health care provider. o Work together to create a plan on how to manage your pain. o Talk about ways to help manage your pain that don???t involve prescription opioids. o Talk about any and all concerns and side effects. ??? Help prevent misuse and abuse o Never sell or share prescription opioids. o Never use another person???s (more content not included)...[facility]XR [facility] Unilat 3 Views Left w/ PA Cheston [id number] Ribs Unilat 3 Views Left w/ PA ChestExam Date/Time: 12/25/2024 08:52 EDT Reason for Exam: Pain, Traumatic Report IMPRESSION: NO DISPLACED FRACTURE OR SIGNIFICANT POSTTRAUMATIC COMPLICATION IDENTIFIED. EXAM: XR Ribs Unilat 3 Views Left w/ PA Chest DATE: 12/25/2024 8:15 AM CLINICAL HISTORY: Pain, Traumatic. COMPARISON: Portable chest 06/19/2024. TECHNIQUE: An upright PA radiograph of the chest, and 4 radiographs of the left ribs were obtained. FINDINGS: There is no displaced fracture, significant pulmonary infiltrate, cardiomegaly, vascular congestion, pleural effusion, pneumothorax, or other significant changes identified. Ordering Provider: Izaiah Dinh FINAL REPORT Dictated: 12/25/2024 9:15 am Robert Ramírez MD Signed (Electronic Signature): 12/25/2024 9:15 am Signed by: Robert Ramírez MD Transcribed by: DARRIN Technologist: [facility]stownXR Shoulder Complete Lefton [id number] Shoulder Complete LeftExam Date/Time: 12/25/2024 08:52 EDT Reason for Exam: Pain, Traumatic Report IMPRESSION: NO DISPLACED FRACTURE OR SIGNIFICANT POSTTRAUMATIC COMPLICATION IDENTIFIED. EXAM: XR Shoulder Complete Left DATE: 12/25/2024 8:15 AM CLINICAL HISTORY: Pain, Traumatic. Technologist Comments: pt. states she fell down the stairs, c/o left sided shoulder/rib pain, no prev sx. COMPARISON: None available. TECHNIQUE: Grashey AP, internal and external rotation AP, transscapular, and axillary radiographs of the left shoulder were obtained. FINDINGS: There is no fracture, dislocation, acromioclavicular joint separation, significant degenerative changes, narrowing of the subacromial space, pathologic calcifications, or other findings of concern identified. Ordering Provider: Izaiah Dinh FINAL REPORT Dictated: 12/25/2024 9:14 am Robert Ramírez MD Signed (Electronic Signature): 12/25/2024 9:14 am Signed by: Robert Ramírez MD Transcribed by: DARRIN Technologist: [facility] CenterXR Spine Cervical 2 or 3 Viewson [id number] Spine Cervical 2 or 3 ViewsExam Date/Time: 12/25/2024 08:50 EDT Reason for Exam: Neck Pain Report IMPRESSION: NO DISPLACED FRACTURE OR SIGNIFICANT POSTTRAUMATIC COMPLICATION IDENTIFIED. EXAM: XR Spine Cervical 2 or 3 Views DATE: 12/25/2024 8:15 AM CLINICAL HISTORY: Neck Pain. Technologist Comments: pt. states she fell down the stairs, c/o left sided shoulder/rib pain, no prev sx. COMPARISON: Cervical spine CT 09/14/2019. TECHNIQUE: AP, lateral, and odontoid radiographs of the cervical spine were obtained. FINDINGS: There is no compression, fracture, significant degenerative changes, disc space narrowing, subluxation, worrisome bone destruction, or other significant changes identified. The visualized paraspinous soft tissues are unremarkable. Ordering Provider: Izaiah Dinh FINAL REPORT Dictated: 12/25/2024 9:09 am Robert Ramírez MD Signed (Electronic Signature): 12/25/2024 9:09 am Signed by: Robert Ramírez MD Transcribed by: DARRIN Technologist: [facility] CenterAmbulatory Visit Summaryon [id number] Visit SummaryAmbulatory Visit Summary FLORES HOUSER :1985 Visit Date:08/29/2024 Ambulatory Visit Instructions Your Diagnosis Right acute suppurative otitis media Bronchitis Smoker Your Care Team Attending Physician - Michael GARCIA, John Primary Care Physician - Sybil Reis MD This Is Your Medications List albuterol (Albuterol (Eqv-ProAir HFA) 90 mcg/inh inhalation aerosol) amoxicillin-clavulanate (Augmentin 875 mg-125 mg Tab) predniSONE (predniSONE 20 mg Tab) Procedures Performed Nephrostomy tube (05/11/2015), Cystoscopy (04/14/2015), Cystoscopy (03/08/2015), cystoscopy, urethral dilatation, right retrograde pyelogram, right double J ureteral stent placement under fluoroscopic guidance (10/26/2014), section (09/05/2014), Exploratory laparotomy. Discharge Vitals Temperature (Oral) 36.4 ???C Heart Rate (Peripheral) 80 Respiratory Rate 18 Blood Pressure 126/84 Height 172 cm Height 68 in Weight 97.7 kg Weight 215.391 lb BMI 33.02 What to do next You Need to Schedule the Following Appointments Follow Up with Sybil Reis MD When: Where: [address] [facility] [place] [address]- Medications What How Much When Why Instructions New albuterol (Albuterol (Eqv-ProAir HFA) 90 mcg/ inh inhalation aerosol) 2 Inhalation Inhalation Every 6 hours Bronchitis Pickup at [facility] New amoxicillin-clavulanate (Augmentin 875 mg-125 mg Tab) 1 Tablets By Mouth Every 12 hours Right acute suppurative otitis media Duration: 10 Days Pickup at [facility] New predniSONE (predniSONE 20 mg Tab) 2 Tablets By Mouth Every day Bronchitis Duration: 5 Days Pickup at [facility] Pharmacy Information [facility]: [address] [place], [place] [id number] [phone] Allergies Keflex (Hives) Problems Ongoing - Any [...] you for choosing us for your care. Education Materials Otitis Media, Adult Otitis media is a condition in which the middle ear is red and swollen (inflamed) and full of fluid. The middle ear is the part of the ear that contains bones for hearing as well as air that helps send sounds to the brain. The condition usually goes away on its own. What are the causes? This condition is caused by a blockage in the eustachian tube. This tube connects the middle ear tothe back of the nose. It normally allows air into the middle ear. The blockage is caused by fluid or swelling. Problems that can cause blockage include: ??? A cold or infection that affects the nose, mouth, or throat. ??? Allergies. ??? An irritant, such as tobacco smoke. ??? Adenoids that have become large. The adenoids are soft tissue located in the back of the throat, behind the nose and the roof of the mouth. ??? Growth or swelling in the upper part of the throat, just behind the nose (nasopharynx). ??? Damage to the ear caused by a change in pressure. This is called barotrauma. What increases the risk? You are more likely to develop this condition if you: ??? Smoke or are exposed to tobacco smoke. ??? Have an opening in the roof of your mouth (cleft palate). ??? Have acid reflux. ??? Have problems in your body's defense system (immune system). What are the signs or symptoms? Symptoms of this condition include: ??? Ear pain. ??? Fever. ??? Problems with hearing. ??? Being tired. ??? Fluid leaking from the ear. ??? Ringing in the ear. How is this treated? This condition can go away on its own within 3???5 days. But if the condition is caused by germs (bacteria) and does not go away on its own, or if it keeps coming back, your doctor may: ??? Give you antibiotic medicines. ??? Give you medicines for pain. Follow these instructions at home: ??? Take ktbv-bun-czacuba and prescription medicines only as told by your doctor. ??? If you were prescribed an antibiotic medicine, take it as told by your doctor. Do not stop taking it even if you start to feel better. ??? Keep all follow-up visits. Contact a doctor if: ??? You have bleeding from your nose. ??? There is a lump on your neck. ??? You are not feeling better in 5 d (more content not included)...[facility] Medicine Office/Clinic Noteon [id number] Medicine Office/Clinic Note[facility] Chief Complaint cough, sinus congestion HPI Staff 38 year old female presents for a cough, sinus congestion, chest congestion, headache, sinus pressure. Pt denies having a fever. Onset- 4 days OTC- Flonase, cough drops History of Present Illness I have reviewed and verified the staff HPI to be accurate for this encounter. Portions of this record have been created with voice recognition software. Occasional wrong-word or???eoqir-f-rqze??? substitutions may have occurred due to the inherent limitations of voice recognition software. Flores is a 38-year-old female who presents to convenient care today for complaints of cough, sinus congestion, headaches, increased sinus pressure worsening over the last 4 days. Patient has been utilizing Flonase as well as cough drops with no resolution of symptoms. Patient states that she hasbad seasonal allergies typically, over the last few weeks have been bad with the [place], her symptoms worsened with the congestion as well as right-sided sinus congestion and ear pain 4 days ago when she was mowing the grass. Review of Systems PHQ Score Initial Depression Screen Score: 0 SCORE ROS negative unless otherwise stated in HPI. Physical Exam Vitals & Measurements T: 36.4 ???C(Oral) HR: 80(Peripheral) RR: 18 BP: 126/84 SpO2: 98% HT: 68 in HT: 172 cm WT: 215.391 lb WT: 97.7 kg BMI: 33.02 General: Well developed, well nourished, in no acute distress Eyes: Pupils equal, round, and reactive to light. Conjunctivae and sclerae normal, and extraocular movements intact Ears: No deformity or lesion of external ears or canals bilaterally. Right TM is bulging, erythematous and injected, intact. Left TM bulging, mild erythema, no injection, intact. Nose: Mild nasal mucosal inflammation and edema, increased pressure to palpation of the right frontal and maxillary sinus areas Mouth: Mucous membranes moist. Normal oropharynx, and posterior pharynx without lesions or exudates. Tongue normal Neck: no adenopathy Lungs: clear to auscultation throughout, no wheezing, no rales. No respiratory distress Cardio: regular rate and rhythm, no murmur Neurologic: Grossly normal Skin: No rashes, ulcerations, or suspicious lesions Mental Status: Alert and oriented x3. Normal mood and affect Assessment/Plan Exam findings consistent with a right suppurative otitis media as well as bronchitis, will place patient on Augmentin twice daily for 10 days as well as send for an albuterol inhaler and a short course of prednisone for the patient's bronchitis symptoms. 1. Right acute suppurative otitis media (H66.001: Acute suppurative otitis media without spontaneous rupture of ear drum, right ear) Will treat with Augmentin, finish course. Fluids/rest, PRN tylenol/ibuprofen for pain and/or fever encouraged. Discussed other cold symptoms remain viral in nature- typical duration 7-14 days. May use Flonase, Sudafed for symptomatic tx. Encouraged to follow up with PCP for recheck in about 5 days to ensure infection resolving, especially if symptoms worsening or fevers. Patient verbalized understanding of treatment plan. Ordered: amoxicillin-clavulanate, 1 tab(s), Oral, q12hr for 10 day(s), 20 tab(s), Refill(s) 0, [facility], 172, cm, 08/29/24 14:04:00 EDT, Height/Length Dosing, 97.7, kg, 08/29/24 14:04:00 EDT, Weight Dosing 2. Bronchitis (J40: Bronchitis, not specified as acute or chronic) Please follow-up with your primary care provider in 3 to 5 days. Contact their office tomorrow morning to schedule follow-up appointment. You were seen and evaluated today in regards to cough and wheezing. You did not have wheezing on exam today. Discussed with you in regards to treatment for bronchitis with prednisone, steroid 40 mg daily x 5 days take as directed. Utilize the albuterol inhaler,2 puffs every 4-6 hours as needed for wheezing. Cough, and viral symptoms may last anywhere form 7-14 days, or linger longer. Continue to monitor. If you develop high spiking fever, shortness of breath ,or chest pain, you should go to the emergency department for reevaluation. You may return if needed. Ordered: albuterol, 180 mcg, 2 inh, Inhalation, q6hr, 6.7 gm, Refill(s) 0, [facility], 172, cm, 08/29/24 14:04:00 EDT, Height/Length Dosing, 97.7, kg, 08/29/24 14:04:00 EDT, Weight Dosing predniSONE, 40 mg = 2 tab(s), Oral, Daily, X 5 day(s), # 10 tab(s), Refills(s) 0, Pharmacy: [facility], 172, cm, 08/29/24 14:04:00 EDT, Height/Length Dosing, 97.7, kg, 08/29/24 14:04:00 EDT, Weight Dosing 3. Smoker (F17.200: Nicotine dependence, unspecified, uncomplicated) We strongly recommend to quit tobacco use. Cigarette smoking harms nearly every organ of the body, causes many diseases, and reduces the health of smokers in general. Quitting smoking lowers your risk for smoking-related diseases and can add years to your life. We encourage you to visit www.smokefree.gov access to helpful (more content not included)...[facility] HospitalComment on above:Result Comment: Electronically Signed By: John Jeong\.br\Date and Time Signed: 08/29/24 14:21 EDTHCG ( test) Ql (U)on 07-17-2024 Interpretation and review of laboratory resultsNormalNOMS HealthcarePreg Test, UrNegativeNegativeNOMS HealthcareNOMS HealthcareUrinalysis macro (dipstick) panel (U)on [id number], UANegativeNegative - 4(70) +++ mg/dLNOMS HealthcareBlood, UANegativeNegative - 50 Flako/mcLNOMS HealthcareClarity, UAClear NOMS HealthcareColor, UAYellowNOMS HealthcareGlucose, UANegativeNegative - 2000(110) ++++ mg/dLNOMS HealthcareInterpretation and review of laboratory resultsNormalNONM HealthcareKetones, UANegativeNegative - 160(16) ++++ mg/dLNONM HealthcareLeukocytes, UANegativeNegative - 500+++ Diaz/mcLNONM HealthcareNitrite, UANegativeNegative - PositiveNOMS HealthcarepH, UA6.55 - 9N[facility] Healthcare Protein, UANegativeNegative - 2000(20) ++++ mg/dLNOMS HealthcareSpec Grav, UA 1.0151 - 1.03NOMS HealthcareUrobilinogen, UA0.20.2 - 12 mg/dLNOMS HealthcareNOMS HealthcareB hCG Qualon 68-26-2689Uhos HCG ( test) QlNegativeNormal [facility] HospitalComment on above:Performed By: #### [id number] ####[facility] [address] [place], [place] [address]MLKfx 88-57-7671Aruvb gap [Moles/Vol]10 mmol/LNormal6-16[facility] Comment on above:Performed By: #### [id number] #### [facility] [address], [place] [address]Cgautpi [Mass/Vol]9.2 mg/dLNormal8.9-11.1FSuburban Community Hospital & Brentwood HospitalComment on above:Performed By: #### [id number] #### [facility] [address], [place] [address]Gntgpiut [Moles/Vol]108 mmol/UPxupqi126-243CjtgglTrihealth Bethesda Butler HospitalComment on above:Performed By: #### [id number] #### [facility] [address], [place] [address]RF8 [Moles/Vol]22 mmol/SDkbpuz31-30KrnhplTrihealth Bethesda Butler Hospital Comment on above:Performed By: #### [id number] #### [facility] [address], [place] [address]Vofhdizxzs [Mass/Vol]0.6 mg/dLNormal0.5-1.3FSuburban Community Hospital & Brentwood HospitalComment on above:Performed By: #### [id number] #### [facility] [address], [place] [address]Eviirno [Mass/Vol]98 mg/xSIkuhxx06-163FydgpvTrihealth Bethesda Butler HospitalComment on above:Performed By: #### [id number] #### [facility] [address], [place] [address]Zbfsqggpr [Moles/Vol]4.0 mmol/LNormal3.5-5.3FSuburban Community Hospital & Brentwood HospitalComment on above:Performed By: #### [id number] #### [facility] [address], [place] [address]Afnctz [Moles/Vol]136 mmol/SKxvdun320-377PbrmfzTrihealth Bethesda Butler HospitalComment on above:Performed By: #### [id number] #### [facility] [address], [place] [address]Csgh nitrogen [Mass/Vol]11 mg/dLNormal5-21[facility] HospitalComment on above:Performed By: #### [id number] #### [facility] [address], [place] [address]Fovl nitrogen/Creatinine [Mass ratio]18 No DrfyhNrwihy43-58 [facility] HospitalComment on above:Performed By: #### [id number] #### [facility] [address], [place] [address]ZSO w/ Auto Diffon 86-88-7514Scvlvjkvf/100 WBC (Bld)0.4 %Normal 0.0-2.0[facility] HospitalComment on above:Performed By: #### [id number] #### [facility] [address], [place] [address]Dlffwqzwy/Leukocytes Auto (Bld) [Pure # fraction]0.0 E9/LNormal 0.0-0.2FSuburban Community Hospital & Brentwood HospitalComment on above:Performed By: #### [id number] #### [facility] [address], [place] [address]Qhonkjhbiqq (Bld) [#/Vol]0.1 E9/LNormal0.0-0.5[facility]ul[facility] Medical CenterComment on above:Performed By: #### [id number] #### [facility] [address] [place] [address]Impswaswzrg/100 WBC (Bld)0.9 %Normal0.0-8.0[facility] HospitalComment on above:Performed By: #### [id number] #### [facility] [address] [place] [address]Ohxpeatrjlg distribution width (RBC) [Ratio]14.3 %High10.9-14.2 [facility] HospitalComment on above:Performed By: #### [id number] #### [facility] [address] [place] [address]Uroiystxrg (Bld) [Volume fraction]39.2 %Bgsbat94.0-46.0[facility] HospitalComment on above:Performed By: #### [id number] #### [facility] [address] [place] [address]Nrvqeekajm (Bld) [Mass/Vol]13.7 g/cUBsjydh42.0-16.0[facility] HospitalComment on above:Performed By: #### [id number] #### [facility] [address] [place] [address]Rzgevpcgnek (Bld) [#/Vol]1.6 E9/LNormal1.0-4.0[facility] HospitalComment on above:Performed By: #### [id number] #### [facility] [address] [place] [address]Fiqulagsqmi/100 WBC (Bld)16.3 %Kkzdkf76.0-50.0[facility] HospitalComment on above:Performed By: #### [id number] #### [facility] [address] [place] [address]UFX (RBC) [Entitic mass]29.6 viXeglne35.0-34.0[facility] HospitalComment on above:Performed By: #### [id number] #### [facility] [address], [place] [address]MPCB (RBC) [Mass/Vol]34.9 g/iODcyqzw57.4-36.0[facility] HospitalComment on above:Performed By: #### [id number] #### [facility] [address] [place] [address]BRW (RBC) [Entitic vol]84.8 aWQhtnzj98.0-100.0[facility] HospitalComment on above:Performed By: #### [id number] #### [facility] [address] [place] [address]Tylgkpwlb (Bld) [#/Vol]0.5 E9/LNormal0.2-1.0[facility] HospitalComment on above:Performed By: #### [id number] #### [facility] [address] [place] [address]Ywepsrywcuj (Bld) [#/Vol]7.6 E9/LHigh2.0-7.5FSuburban Community Hospital & Brentwood HospitalComment on above:Performed By: #### [id number] #### [facility] [address] [place] [address]Igugvegcmoz/100 WBC (Bld)77.4 %High36.0-75.0[facility] HospitalComment on above:Performed By: #### [id number] #### [facility] [address] [place] [address]Oztxvtrw104.0 E9/ITsweej980.0-500.0[facility] Comment on above:Performed By: #### [id number] #### [facility] [address], [place] [address]Cprijuas mean volume (Bld) [Entitic vol]9.8 fLNormal6.4-10.8 [facility] HospitalComment on above:Performed By: #### [id number] #### [facility] [address], [place] [address]CEX (Bld) [#/Vol]4.6 E12/LNormal4.3-5.9[facility] HospitalComment on above:Performed By: #### [id number] #### [facility] [address], [place] [address]ZIN corrected for nucl RBC Auto (Bld) [#/Vol]9.8 E9/LNormal 4.0-11.0[facility] HospitalComment on above:Performed By: #### [id number] #### [facility] [address], [place] [address]ZIHUNZMUFBnjhymv By: SYSTEM SYSTEM on 46-62-7562Yuggaih [Mass/Vol]4.2 g/dLNormal3.3 - 5.0 gm/dLRemisol ChemAlbumin/Globulin [Mass ratio] 1.2 {ratio}Normal1.1 - 2.2Remisol ChemALP [Catalytic activity/Vol]66 [iU]/d Ssjlqv45 - 98 Int._Unit/LRemisol ChemALT No additional P-5'-P [Catalytic activity/Vol]10 [iU]/dNormal6 - 46 Int._Unit/LRemisol ChemAnion gap [Moles/Vol] 10 mmol/LNormal6 - 16 mEq/LRemisol ChemAST [Catalytic activity/Vol]13 [iU]/d Normal5 - 43 Int._Unit/LRemisol ChemBilirubin [Mass/Vol]0.5 mg/dLNormal0.0 - 1.1 mg/dLRemisol ChemBilirubin.direct [Mass/Vol]0.2 mg/dLNormal0.0 - 0.4 mg/dL Remisol ChemBilirubin.indirect [Mass or moles/Vol]0.3 mg/dLNormal0.1 - 0.9 mg/dL Remisol ChemCalcium [Mass/Vol]9.2 mg/dLNormal8.9 - 11.1 mg/dLRemisol Chem Chloride [Moles/Vol]108 mmol/JZtqkrz121 - 111 mmol/LRemisol ChemCO2 [Moles/Vol] 22 mmol/MUdncxt35 - 31 mmol/LRemisol ChemCreatinine [Mass/Vol]0.6 mg/dLNormal0.5 - 1.3 mg/dLRemisol IhxsrPIY125 mL/min/1.73 v6Fovdey>=59mL/min/1.73 y7Iuzmjyv ChemGlobulin (S) [Mass/Vol]3.4 g/dLNormal1.4 - 4.0 gm/dLRemisol ChemGlucose [Mass/Vol]98 mg/fCHlxngt02 - 199 mg/dLRemisol ChemLipase [Catalytic activity/Vol]21 U/VEtsjza56 - 58 unit/LRemisol ChemPotassium [Moles/Vol]4.0 mmol/LNormal3.5 - 5.3 mmol/LRemisol ChemProtein [Mass/Vol]7.6 g/dLNormal6.0 - 7.8 gm/dLRemisol ChemSodium [Moles/Vol]136 mmol/EFumpvu306 - 145 mmol/LRemisol ChemUrea nitrogen [Mass/Vol]11 mg/dLNormal5 - 21 mg/dLRemisol ChemUrea nitrogen/Creatinine [Mass ratio]18 mg/mgGtwbas76 - 20Remisol ChemCT Abdomen/Pelvis w/ Contraston [id number] Abdomen/Pelvis w/ ContrastExam Date/Time: 07/09/2024 14:20 EDT Reason for Exam: ABDOMINAL PAIN, ACUTE, NONLOCALIZED;Other (please specify) Report IMPRESSION: Small nonobstructing left renal calculi. Small volume pelvic free fluid, likely physiologic. HISTORY: Right lower quadrant pain. Nausea, vomiting, fevers. History of ruptured ovarian cyst. TECHNIQUE: CT of the abdomen and pelvis was performed using standard technique with intravenous contrast, scanning from just above the dome of the diaphragm to the symphysis pubis. Including delayed images through the kidneys. Including sagittal and coronal reconstructions on both phases. Unless otherwise stated, incidental findings identified in this report do not require routine follow-up imaging. All CT scans at this facility use dose modulation, iterative reconstruction, and/or weight based dosing when appropriate to reduce radiation dose to as low as reasonably achievable. COMPARISON: CT 09/17/2021. RESULT: Liver: Small amount of focal fat deposition at the falciform ligament. Otherwise unremarkable. Biliary: Gallbladder unremarkable. No biliary ductal dilation. Pancreas: No mass or duct dilation. Spleen: No mass or splenomegaly. Adrenals: No mass. Kidneys: Multiple small left renal calculi, at least 4, measuring up to 3 mm. No right renal calculi. No hydronephrosis. Delayed phase images unremarkable. GI tract: No dilation or wall thickening. No evidence for appendicitis or diverticulitis. Lymph nodes: No abdominal or pelvic lymphadenopathy. Mesentery/Peritoneum/Retroperitoneum: No ascites or mass. Vasculature: The celiac axis and SMA are patent. The portal vein and branches, splenic vein, SMV, and hepatic veins are patent. No abdominal aortic or iliac artery aneurysm. Report Pelvis: Small volume pelvic free fluid, likely physiologic. Uterus retroverted, otherwise grossly unremarkable. Small left adnexal cyst/follicle. Bladder decompressed. Bones: No acute osseous findings. Soft tissues: Unremarkable. Lower thorax: Unremarkable. Tech Comments: GFR (mL/min/1/73m2) >60 Contrast: Isovue 300 Contrast amount in ml's: 100.00 Rectal Contrast Given? No Ordering Provider: Trent Becker FINAL REPORT Dictated: 07/09/2024 2:30 pm Rodo Archuleat MD. Signed (Electronic Signature): 07/09/2024 2:30 pm Signed by: Rodo Archuleta MD Transcribed by: DARRIN Technologist: Lashaun [facility] Clinical Summaryon [id number] Clinical SummaryED Clinical Summary [place] [id number] ED Clinical Summary Person Information Name: FLORES HOUSER [facility] Age: 38 Years : 1985 Sex: Female Language: Anguillan PCP: Sybil Reis MD Marital Status: Single Phone: [phone] Visit Id: Visit Reason: Abdominal pain; Fever; Vomiting; Nausea; FEVER, VOMITING Speciality: Acuity: 3 Enc Type: Emergency Med Service: Emergency Arrival: 07/09/2024 12:02:19 Discharge: 07/09/2024 14:53:21 LOS: 000 02:51 Checkin: 07/09/2024 12:02:19 Checkout: 07/09/2024 14:53:21 Dispo Type: Home (Routine DC) EVENTS: Event Name Event Status Request Date/Time Start Date/Time Complete Date/Time Arrive Complete 07/09/2024 12:02:19 07/09/2024 12:02:19 07/09/2024 12:02:19 Document Home Meds Request 07/09/2024 12:02:19 Triage Complete 07/09/2024 12:02:19 07/09/2024 12:23:32 07/09/2024 12:23:32 Registration Complete 07/09/2024 12:04:52 07/09/2024 12:04:52 07/09/2024 12:04:52 Reg Complete Request 07/09/2024 12:04:52 Reg Bed Request Complete 07/09/2024 12:04:52 07/09/2024 12:04:52 07/09/2024 12:04:52 Bed Assign Complete 07/09/2024 12:30:06 07/09/2024 12:30:06 07/09/2024 12:30:06 Dr Exam Complete 07/09/2024 12:30:06 07/09/2024 12:31:06 07/09/2024 12:31:06 RN Exam Complete 07/09/2024 12:30:06 07/09/2024 13:27:15 07/09/2024 13:27:15 Registration Request 07/09/2024 12:31:06 Dr Exam Complete 07/09/2024 12:32:14 07/09/2024 12:32:14 07/09/2024 12:32:14 CT Complete 07/09/2024 12:48:50 07/09/2024 13:53:05 07/09/2024 14:20:11 Meds Admin Complete 07/09/2024 12:48:50 07/09/2024 13:21:47 Pending Labs Request 07/09/2024 12:48:50 Lab Complete 07/09/2024 12:48:50 07/09/2024 13:32:55 Patient Care Request 07/09/2024 12:48:50 Pending Labs Complete 07/09/2024 13:08:58 07/09/2024 13:08:58 07/09/2024 13:32:55 Lab Complete 07/09/2024 13:08:58 07/09/2024 13:08:58 07/09/2024 13:32:55 Pending Labs Complete 07/09/2024 13:33:17 07/09/2024 13:33:17 07/09/2024 13:33:18 Discharge Complete 07/09/2024 14:40:02 07/09/2024 14:53:28 07/09/2024 14:53:28 Transfer Complete 07/09/2024 14:53:28 07/09/2024 14:53:28 07/09/2024 14:53:28 ADDRESS: [address] [place] [phone] PHYS DOC NOTES: MEDICAL INFORMATION: Prescriptions Given: New Medications [facility], [address] [place], [place] [id number], [phone] naproxen (naproxen 500 mg Tab) 1 Tablets By Mouth 2 times a day as needed for pain. Refills: 0. ondansetron (Zofran ODT 4 mg Tab-Dis) 1 Tablets By Mouth every 8 hours as needed Nausea/Vomiting. Refills: 0. Medications to Continue with No Changes Other Medications methocarbamol (Robaxin 500 mg Tab) 2 Tablets By Mouth 4 times a day as needed as needed for pain. Refills: 0. PATIENT EDUCATION INFORMATION: Instructions: Ovarian Cyst, Dovq-cf-Ghjc; Abdominal Pain, Adult, Dvjj-gz-Nvpc Follow up: With: Address: When: Hima GANDHI [facility], [address] [place] [address] [place] [address] Business (1) In 3 days 07/12/2024 Comments: Call for diagnosis based follow up With: Address: When: Sybil [place] [address] Business (1) In 3 days 07/12/2024 Comments: Call for diagnosis based follow up DIAGNOSIS: Lower abdominal painNormalFisher [facility] Carson Medical CenterED Note-Physicianon [id number] Note-PhysicianED Note-Physician Basic Information Time Seen: Trent Becker PA-C 07/09/2024 12:31 Chief Complaint had sharp pain in RLQ this weekend, since has had nausea, vomiting, and fevers. can't keep anythingdown. hx ruptured ovarian cyst History of Present Illness A 38-year-old female reports to the emergency department with concerns of right lower quadrant pain. Reports it started this weekend. Reports that the sharp stabbing pain, and ever since has had nausea vomiting and low-grade fevers. Reports has a hard time keeping things down. Reports that she believes she had a ruptured ovarian cyst. She has had the symptoms before. She states that she has a hard time to get things done at this time, like to evaluate. Reports the pain in her abdomen has improved. No cough or congestion. Denies any urinary symptoms. Review of Systems no other aggravating or relieving factors no other associated symptoms no other prior treatments orcomplaints. Family: Reviewed and noncontributory Social: lives at home Review of systems negative unless otherwise specified in the HPI. Physical Exam Vitals & Measurements T: 36.7 ???C(Oral) HR: 74(Monitored) RR: 18 BP: 117/74 SpO2: 98% HT: 172 cm WT: 101.4 kg BMI: 34.28 General: The patient appears well and in no apparent distress. Patient is resting comfortably on bed. Afebrile Skin: Warm, dry, no pallor noted. Head: Normocephalic, atraumatic Neck: No JVD Eye: PERRLA, EOMI ENT: Moist mucus membranes Cardiovascular: Regular rate. normal peripheral perfusion Respiratory: No respiratory distress. no accessory muscle use. no obvious audible wheezing Chest Wall: no deformity Musculoskeletal: normal ROM, no deformity, no swelling GI: No obvious distention. abdomen soft. Mild tenderness of the lower suprapubic and right lower quadrant region. No rebound tenderness or guarding noted. No CVA tenderness bilaterally. Neurological: A&O. moves all extremities equal strength and symmetry Psychiatric: Cooperative and appropriate Medical Decision Making A 38-year-old female reports for department with concerns of lower abdominal pain. reports that shefeels like the cyst has ruptured. She states that she has had these before. Reports pain is improving. She continues to have right lower quadrant pain. Reports nausea vomiting cannot keep anything down. Exam patient here is rather benign with mild lower abdominal/right lower quadrant. Due to concerns, we did do lab work as reviewed noted. No acute changes seen. CT of her abdomen was negative for any acute findings. Small volume pelvic free fluid was seen. Discussed could be a recently ruptured ovarian cyst, but otherwise things look well. She was understanding with this. Did feel improvement with medications here. Discussed follow-up with [facility]. Follow-up with your primary care provider in3 to 5 days. If symptoms worsen, do not improve, or new symptoms arise please report back to emergency department for further evaluation. The patient was understanding and agreeable to plan moving forward. Assessment/Plan Lower abdominal pain (R10.30: Lower abdominal pain, unspecified) Orders: ketorolac, 30 mg = 1 mL, Injection, IV Push, Once, Stop date 07/09/24 12:48:00 EDT, STAT, Start date 07/09/24 12:48:00 EDT, 07/09/24 12:48:00 EDT naproxen, 500 mg = 1 tab(s), Oral, BID, PRN for pain, # 20 tab(s), Refills(s) 0, Pharmacy: [facility], 172, cm, 07/09/24 12:23:00 EDT, Height/Length Dosing, 101.4, kg, 07/09/24 12:23:00 EDT, Weight Dosing ondansetron, 4 mg = 2 mL, Injection, IV Push, Once, Stop date 07/09/24 12:48:00 EDT, STAT, Start date 07/09/24 12:48:00 EDT, 07/09/24 12:48:00 EDT ondansetron, 4 mg = 1 tab(s), Oral, q8hr, PRN Nausea/Vomiting, # 12 tab(s), Refills(s) 0, Pharmacy:[facility], 172, cm, 07/09/24 12:23:00 EDT, Height/Length Dosing, 101.4, kg, 07/09/24 12:23:00 EDT, Weight Dosing Sodium Chloride 0.9% intravenous solution, 1,000 mL, Soln-IV, IV, Once, Stop date 07/09/24 12:48:00EDT, STAT, Start date 07/09/24 12:48:00 EDT, Infuse over 61, minute(s) Basic Metabolic Panel Beta hCG Qual CBC w/ Auto Diff CT Abdomen/Pelvis w/ Contrast eGFR Extra Blue Tube Hepatic Function Panel Lipase Level Saline Lock Insert Medications Administered Given ketorolac 30 mg/mL Inj 1 mL, 30 mg, IV Push NS 1000 ml Bolus, 1000 mL, IV ondansetron 4 mg/2 mL Inj, 4 mg, IV Push Disposition Plan Patient Discharge Condition stable Discharge Disposition to home Discharge Prescription List Prescriptions naproxen 500 mg Tab, 500 mg= 1 tab(s), Oral, BID, PRN Zofran ODT 4 mg Tab-Dis, 4 mg= 1 tab(s), Oral, q8hr, PRN Follow-up With When Contact Information Hima GANDHI In 3 days 07/12/[address] , [place] [address]- Business (1) Additional Instructions: Call Dr for diagnosis based follow up Sybil Reis In 3 days 07/12/[address] [place] [address]- [phone] (more content not included)...[facility]ger HospitalComment on above:Result Comment: Electronically Signed By: Trent Becker PA-C\.br\Date and Time Signed: 07/09/2514:44 EDT\.br\Electronically Co-Signed By: Zuhair Chen, Saima Cordova\.br\Date and Time Co-Signed: 07/09/24 16:24 EDTED Patient Summary on [id number] Patient SummaryED Patient Summary [address] [address] Patient Discharge Instructions Person Information Name: FLORES HOUSER Age: 38 Years Arrival Date: 07/09/2024 12:02:19 Discharge Diagnosis: Lower abdominal pain Primary Care Physician: Smiley GIMENEZ, Sybil Mendoza Provider Information Primary Provider: Zuhair Chen, Saima Cordova [employer] Making Machine Tender:Trent Becker PA-C The exam and treatment you received in the Emergency Department were for an urgent problem and are not intended as complete care. It is important that you follow up with a doctor, nurse practitioner,or physician???s microbiology lab assistant for ongoing care. If your symptoms become worse or you do not improve asexpected and you are unable to reach your usual health care provider, you should return to the Emergency Department. We are available 24 hours a day. FLORES HOUSER has been given the following list of patient education materials, prescriptions and follow-up instructions: Follow-up Instructions: With: Address: When: Hima GANDHI [facility], [address] [place] [address] [place] [address] Business (1) In 3 days 07/12/2024 Comments: Call Dr for diagnosis based follow up With: Address: When: [place] [address] [place] [address] Business (1) In 3 days 07/12/2024 Comments: Call Dr for diagnosis based follow up In the event that this physician does not participate in your insurance network, please consult with your insurance company to find a nearby participating provider. Patient Education Materials: Ovarian Cyst, Rwji-jj-Oufh; Abdominal Pain, Adult, Lzhz-yd-Rubo A MESSAGE TO ALL PATIENTS REGARDING OPIOIDS PRESCRIPTION OPIOIDS: WHAT YOU NEED TO KNOW Prescription opioids can be used to help relieve ctlxgnxv-pr-kwzjnd pain and are often prescribed following a [...] as well, even when taken as directed: ??? Tolerance???meaning you might need to take more of the medication for the same pain relief ??? Physical dependence???meaning you have symptoms of withdrawal when a medication is stopped ??? Increased sensitivity to pain ??? Constipation ??? Nausea, vomiting, and dry mouth ??? Sleepiness and dizziness ??? Confusion ??? Depression ??? Low levels of testosterone that can result in lower sex drive, energy, and strength ??? Itching and sweating RISKS ARE GREATER WITH: ??? History of drug misuse, substance use disorder, or overdose ??? Mental health conditions (such as depression or anxiety) ??? Sleep apnea ??? Older age (65 years and older) ??? Avoid alcohol while taking prescription opioids. Also, unless specifically advised by your health care provider, medications to avoid include: ??? Benzodiazepines (such as Xanax or Valium) ??? Muscle relaxants (such as Soma or Flexeril) ??? Hypnotics (such as Ambien or Lunesta) ??? Other prescription opioids KNOW YOUR OPTIONS Talk to your health care provider about ways to manage your pain that don???t involve prescription opioids. Some of these options may actually work better and have fewer risks and side effects. Options may include: ??? Pain relievers such as acetaminophen, ibuprofen, and naproxen ??? Some medication that are also used for depression or seizures ??? Physical therapy and exercise ??? Cognitive behavioral therapy, a psychological, goal-directed approach, in which patients learn how to modify physical, behavioral, and emotional triggers of pain and stress. IF YOU ARE PRESCRIBED OPIOIDS FOR PAIN: ??? Never take opioids in greater amounts or more often than prescribed. ??? Follow up with your primary health care provider. o Work together to create a plan on how to manage your pain. o Talk about ways to help manage your pain that don???t involve prescription opioids. o Talk about any and all concerns and side effects. ??? Help prevent misuse and abuse o Never sell or share prescription opioids. o Never use another person???s prescription opioids. ??? Store prescription opioids in a secure place and out of reach of others (this may include visitors, children, friends, and family). ??? Safely dispose of unused prescription opioids: Find your community drug take-back program or your pharmacy mail-back program, or f (more content not included)...Berger HospitalExtra India 27-18-1960Aeyw Collected PlasmaYesInvalid Interpretation [facility] Medical CenterComment on above:Performed By: #### [id number] #### [facility] [address] [place], [place] [address]MTGIIHJUVKKiveohk By: SYSTEM SYSTEM on 45-08-6781Doozsdbpw/100 WBC (Bld)0.4 %Normal0.0 - 2.0 %Remisol HemeBasophils/Leukocytes Auto (Bld) [Pure # fraction]0.0 E9/LNormal0.0 - 0.2 E9/LRemisol HemeEosinophils (Bld) [#/Vol]0.1 E9/LNormal0.0 - 0.5 E9/LRemisol HemeEosinophils/100 WBC (Bld)0.9 %Normal0.0 - 8.0 %Remisol HemeErythrocyte distribution width (RBC) [Ratio]14.3 %High10.9 - 14.2 %Remisol HemeHematocrit (Bld) [Volume fraction]39.2 %Nahjbg78.0 - 46.0 % Remisol HemeHemoglobin (Bld) [Mass/Vol]13.7 g/iYRghoum26.0 - 16.0 gm/dLRemisol HemeLymphocytes (Bld) [#/Vol]1.6 E9/LNormal1.0 - 4.0 E9/LRemisol Heme Lymphocytes/100 WBC (Bld)16.3 %Mkdusf81.0 - 50.0 %Remisol HemeMCH (RBC) [Entitic mass]29.6 ebTpcwbp14.0 - 34.0 pgRemisol HemeMCHC (RBC) [Mass/Vol]34.9 g/dL Hyoynw18.4 - 36.0 gm/dLRemisol HemeMCV (RBC) [Entitic vol]84.8 qAXvhsaf33.0 - 100.0 fLRemisol HemeMonocytes (Bld) [#/Vol]0.5 E9/LNormal0.2 - 1.0 E9/LRemisol HemeMonocytes/100 WBC (Bld)5.0 %Normal4.0 - 14.0 %Remisol HemeNeutrophils (Bld) [#/Vol]7.6 E9/LHigh2.0 - 7.5 E9/LRemisol HemeNeutrophils/100 WBC (Bld)77.4 %High 36.0 - 75.0 %Remisol NoycZeiuuovg927.0 E9/FRlcimf684.0 - 500.0 E9/LRemisol Heme Platelet mean volume (Bld) [Entitic vol]9.8 fLNormal6.4 - 10.8 fLRemisol HemeRBC (Bld) [#/Vol]4.6 E12/LNormal4.3 - 5.9 E12/LRemisol HemeWBC corrected for nucl RBC Auto (Bld) [#/Vol]9.8 E9/LNormal4.0 - 11.0 E9/LRemisol HemeHep Func Panelon 45-82-5864Ojmgelr [Mass/Vol]4.2 g/dLNormal3.3-5.0[facility] Comment on above:Performed By: #### [id number] #### [facility] [address], [place] [address]Dkhdgzr/Globulin (S) [Mass conc ratio]1.4Ohysew8.1-2.2FSuburban Community Hospital & Brentwood HospitalComment on above:Performed By: #### [id number] #### [facility] [address], [place] [address]FLO [Catalytic activity/Vol]66 Int._Unit/ZQcegpl73-70VyzjarTrihealth Bethesda Butler HospitalComment on above:Performed By: #### [id number] #### [facility] [address], [place] [address]CHX No additional P-5'-P [Catalytic activity/Vol]10 Int._Unit/L Normal6-46[facility] Butler HospitalComment on above:Performed By: #### [id number] #### [facility] [address], [place] [address]MAW [Catalytic activity/Vol]13 Int._Unit/LNormal5-43[facility] HospitalComment on above:Performed By: #### [id number] #### [facility] [address], [place] [address]Uwojdgase [Mass/Vol]0.5 mg/dLNormal0.0-1.1FSuburban Community Hospital & Brentwood HospitalComment on above:Performed By: #### [id number] #### [facility] [address], [place] [address]Mmoajhnck.direct [Mass/Vol]0.2 mg/dLNormal0.0-0.4FSuburban Community Hospital & Brentwood HospitalComment on above:Performed By: #### [id number] #### [facility] [address] [place] [address]Blgnvixma.indirect [Mass or moles/Vol]0.3 mg/dLNormal0.1-0.9 [facility] HospitalComment on above:Performed By: #### [id number] #### [facility] [address] [place] [address]Rzeexbos (S) [Mass/Vol]3.4 g/dLNormal1.4-4.0[facility] HospitalComment on above:Performed By: #### [id number] #### [facility] [address] [place] [address]Jgsrcwg [Mass/Vol]7.6 g/dLNormal6.0-7.8[facility] Butler HospitalComment on above:Performed By: #### [id number] #### [facility] [address] [place] [address]Jhpjvc Levelon 64-94-5782Xhfedt [Catalytic activity/Vol]21 U/L Bojuuz75-79DwlkwaTrihealth Bethesda Butler HospitalComment on above:Performed By: #### [id number] #### [facility] [address] [place] [address]XJOHHIVHPjrmxak By: Agueda Barcenas on 87-75-7925Lnhp HCG ( test) QlNegative (07/09/24 12:56 PM)NormalSAINT FRANC[facility] Man SeroeGFRon 73-95-4079eYAJ497 mL/min/1.73 m2 Normal>=59[facility] Butler HospitalComment on above:Performed By: #### [id number] #### [facility] [address] [place] [address]SVPgb 69-40-7158Ratcg gap [Moles/Vol]12 mmol/LNormal6-16[facility] HospitalComment on above:Performed By: #### [id number] #### [facility] [address], [place] [address]Slryfqw [Mass/Vol]9.6 mg/dLNormal8.9-11.1FSuburban Community Hospital & Brentwood HospitalComment on above:Performed By: #### [id number] #### [facility] [address], [place] [address]Sjyhmltz [Moles/Vol]103 mmol/MIfwken819-588DtqmabTrihealth Bethesda Butler HospitalComment on above:Performed By: #### [id number] #### [facility] [address], [place] [address]AB5 [Moles/Vol]26 mmol/PZytsdl66-02MiliqgTrihealth Bethesda Butler Hospital Comment on above:Performed By: #### [id number] #### [facility] [address], [place] [address]Rbcwpkgzqx [Mass/Vol]0.6 mg/dLNormal0.5-1.3FSuburban Community Hospital & Brentwood HospitalComment on above:Performed By: #### [id number] #### [facility] [address], [place] [address]Daeziwz [Mass/Vol]95 mg/qEHdsiop52-102AzdvwjTrihealth Bethesda Butler HospitalComment on above:Performed By: #### [id number] #### [facility] [address], [place] [address]Qvbuqdwve [Moles/Vol]4.0 mmol/LNormal3.5-5.3FSuburban Community Hospital & Brentwood HospitalComment on above:Performed By: #### [id number] #### [facility] [address], [place] [address]Znbcbo [Moles/Vol]137 mmol/PHpnjuw869-356ElzwrvTrihealth Bethesda Butler HospitalComment on above:Performed By: #### [id number] #### [facility] [address], [place] [address]Ksac nitrogen [Mass/Vol]10 mg/dLNormal5-21[facility] HospitalComment on above:Performed By: #### [id number] #### [facility] [address] [place] [address]Xsqn nitrogen/Creatinine [Mass ratio]17 No YlnyyQetdyy77-97 [facility] Butler HospitalComment on above:Performed By: #### [id number] #### [facility] [address] [place] [address]PPB w/ Auto Diffon 36-03-6202Jfqyxwzgp/100 WBC (Bld)0.8 %Normal 0.0-2.0[facility] Butler HospitalComment on above:Performed By: #### [id number] #### [facility] [address] [place] [address]Vurdkfcnj/Leukocytes Auto (Bld) [Pure # fraction]0.1 E9/LNormal 0.0-0.2FSuburban Community Hospital & Brentwood HospitalComment on above:Performed By: #### [id number] #### [facility] [address] [place] [address]Qyfrdretgoy (Bld) [#/Vol]0.1 E9/LNormal0.0-0.5FSuburban Community Hospital & Brentwood HospitalComment on above:Performed By: #### [id number] #### [facility] [address] [place] [address]Jacgppmelhx/100 WBC (Bld)1.5 %Normal0.0-8.0[facility] HospitalComment on above:Performed By: #### [id number] #### [facility] [address] [place] [address]Mdfnxznhzxe distribution width (RBC) [Ratio]14.4 %High10.9-14.2 [facility] HospitalComment on above:Performed By: #### [id number] #### [facility] [address] [place] [address]Xwrlicglak (Bld) [Volume fraction]40.5 %Mshbme09.0-46.0[facility] HospitalComment on above:Performed By: #### [id number] #### [facility] [address] [place] [address]Tptftzyzur (Bld) [Mass/Vol]13.6 g/pXYeanvp44.0-16.0[facility] HospitalComment on above:Performed By: #### [id number] #### [facility] [address] [place] [address]Ragyfwasior (Bld) [#/Vol]2.6 E9/LNormal1.0-4.0[facility] HospitalComment on above:Performed By: #### [id number] #### [facility] [address] [place] [address]Zzlpvirvjzy/100 WBC (Bld)27.0 %Bmyxyf67.0-50.0[facility] Butler HospitalComment on above:Performed By: #### [id number] #### [facility] [address] [place] [address]HSE (RBC) [Entitic mass]29.4 qlGeddem08.0-34.0[facility] HospitalComment on above:Performed By: #### [id number] #### [facility] [address] [place] [address] 1959[address]FDHX (RBC) [Mass/Vol]33.7 g/fLDehkcy05.4-36.0[facility] HospitalComment on above:Performed By: #### [id number] #### [facility] [address] [place] [address] 01634ZRQ (RBC) [Entitic vol]87.3 uYVmbanv46.0-100.0[facility] HospitalComment on above:Performed By: #### [id number] #### [facility] [address] [place] [address]Rfmyzfibi (Bld) [#/Vol]0.6 E9/LNormal0.2-1.0[facility] HospitalComment on above:Performed By: #### [id number] #### [facility] [address] [place] [address]Tjvggdzgzez (Bld) [#/Vol]6.2 E9/LNormal2.0-7.5FSuburban Community Hospital & Brentwood HospitalComment on above:Performed By: #### [id number] #### [facility] [address] [place] [address]Ralfmykvxxt/100 WBC (Bld)64.3 %Wmjuac91.0-75.0[facility] HospitalComment on above:Performed By: #### [id number] #### [facility] [address] [place] [address] 529[address]Tkicobaz mean volume (Bld) [Entitic vol]9.8 fLNormal6.4-10.8 [facility] HospitalComment on above:Performed By: #### [id number] #### [facility] [address] [place] [address] 437[address]Qcnpyddlt (Bld) [#/Vol]317.0 E9/ZWausks703.0-500.0[facility] HospitalComment on above:Performed By: #### [id number] #### [facility] [address] [place] [address] 199[address]QOG (Bld) [#/Vol]4.6 E12/LNormal4.3-5.9[facility] HospitalComment on above:Performed By: #### [id number] #### [facility] [address] [place] [address]MGZ corrected for nucl RBC Auto (Bld) [#/Vol]9.7 E9/LNormal 4.0-11.0[facility] HospitalComment on above:Performed By: #### [id number] #### [facility] [address] [place] [address] 218[address]SRZGZNDNJWofiqie By: SYSTEM SYSTEM on 96-89-7221Vatxtaii HS pg/mLLow10.10 - 27.10 pg/mLRemisol ChemComment on above:Interpretive Data: The 95% CI (Confidence Interval) PPV (Positive Predictive Value) for myocardial i nfarction in females is 38 pg/mL, in males 51 pg/mL. The results should be used in conjunction withclinical conditions of myocardial infarction. (Access High Sensitivity Troponin I Instructions For Use, [place], October 2017)Anion gap [Moles/Vol]12 mmol/LNormal6 - 16 mEq/LRemisol ChemCalcium [Mass/Vol]9.6 mg/dLNormal8.9 - 11.1 mg/dLRemisol ChemChloride [Moles/Vol]103 mmol/LVqghmr004 - 111 mmol/LRemisol ChemCO2 [Moles/Vol]26 mmol/RVecnaw15 - 31 mmol/LRemisol ChemCreatinine [Mass/Vol]0.6 mg/dLNormal0.5 - 1.3 mg/dLRemisol HhghoVYP085 mL/min/1.73 d6Ibicaj>=59mL/min/1.73 t8Embpwtq ChemGlucose [Mass/Vol] 95 mg/iPXhhqli07 - 199 mg/dLRemisol ChemPotassium [Moles/Vol]4.0 mmol/LNormal3.5 - 5.3 mmol/LRemisol ChemSodium [Moles/Vol]137 mmol/XOjdvby723 - 145 mmol/L Remisol ChemTroponin HS2.80 pg/mLLow10.10 - 27.10 pg/mLRemisol ChemComment on above:Interpretive Data: The 95% CI (Confidence Interval) PPV (Positive Predictive Value) for myocardial infarction in females is 38 pg/mL, in males 51 pg/mL. The results should be used in conjunction withclinical conditions of myocardial infarction. (Access High Sensitivity Troponin I Instructions For Use, [place], October 2017)Urea nitrogen [Mass/Vol]10 mg/dLNormal5 - 21 mg/dLRemisol ChemUrea nitrogen/Creatinine [Mass ratio]17 mg/lyLebwag41 - 20Remisol ChemCOAGULATION Ordered By: Adriana De La Garza on 36-64-0910lPGU Coag (PPP) [Time]33.8 sNormal 25.1 - 36.5 second(s)[facility] Auto CoagComment on above:Interpretive Data: Parameter 15 days - 4 weeks 1 - 5 months 6 - 11 months 1 - 5 years 6 - 10 years 11 - 17 years PTT Mean: 35.4 (27.6-45.6) Mean: 33.5 (24.8-40.7) Mean: 32.4 (25.1-40.7) Mean: 31.6 (24.0-39.2) Mean: 31.6 (26.9-38.7) Mean: 31.0 (24.6-38.4) Pediatric Reference ranges were obtained from a study by Evans Broderick et al. prepared from 1437 samples obtained at 7 different centers using the same coagulation reagent and instrumentation as [facility]. Currently there are no coagulation studies available worldwide for children to 14 days, andno normal ranges. Heparin therapeutic range (represented by Anti-Factor Xa activity of 0.2 - 0.4 U/mL) corresponds to PTT of 56.6 - 109.0 sec.Fibrin D-dimer FEU (PPP) [Mass/Vol] 469 ng/mL HHVGgohin696 - 500 ng/mL [facility] Auto CoagComment on above: Interpretive Data: This assay is intended for use as an aid in the diagnosis of DVT or PE. These conditions cannot be excluded with certainty solely on the basis of a D-dimer concentration being within the reference range This D-Dimer assay may be used in conjunction with a non-high clinical pretest probability assessment to exclude deep-vein thrombosis(DVT). For exclusion of venous thrombosis or pulmonary embolism the analyte D-Dimer should not be used as an aid in patients with: Therapeutic dose anticoagulant therapy for >24 hours Fibrinolytic therapy within previous 7 days Trauma or surgery within previous 4 weeks Disseminated malignacies Aortic aneurysm Sepsis, severe infections, pneumonia, severe skin infections Liver cirrhosis PregnancyINR Coag (PPP) [Relative time]0.96 {INR}Invalid Interpretation CodeSAINT [facility] Auto CoagComment on above:Interpretive Data: INR results are specifically intended to assess patients stabilized on long-term Anticoagulation therapy suggested INR s Less Intensive Anticoagulation 2.0 3.0 Conventional Range 3.0 4.5PT Coag (PPP) [Time]10.7 sNormal9.4 - 12.5 second(s) [facility] Auto CoagComment on above:Interpretive Data: 15 days - 4 weeks 1 - 5 months 6 -11 months 1-5 years 6-10 years 11 -17 years Mean: 11.2 (9.5-12.6) Mean: 11.0 (9.7-12.8) Mean: 11.0 (9.8-13.0) Mean: 11.3 (9.9-13.4) Mean: 11.7 (10.0-14.6) Mean: 11.8 (10.0 - 14.1) Pediatric Reference ranges were obtained from a study by franco aMldonado al. prepared from 1437 samples obtained at 7 different centers using the same coagulation reagent and instrumentation as [facility]. Currently there are no coagulation studies available worldwide for children to 14 days, andno normal ranges.D-Dimeron 13-31-0404Jepiez D-dimer FEU (PPP) [Mass/Vol]469 CD:[id number] [facility]itus Medical CenterComment on above:Result Comment: This assay is intended for use as an aid in the diagnosis of DVT or PE. These conditions cannot be excluded with certainty solely on the basis of a D- dimer concentration being within the reference range This D-Dimer assay may be used in conjunction with a non-high clinical pretest probability assessment to exclude deep-vein thrombosis(DVT). For exclusion of venous thrombosis or pulmonary embolism the analyte D-Dimer should not be used as an aid in patients with: Therapeutic dose anticoagulant therapy for >24 hours Fibrinolytic therapy within previous 7 days Trauma or surgery within previous 4 weeks Disseminated malignacies Aortic aneurysm Sepsis, severe infections, pneumonia, severe skin infections Liver cirrhosis PregnancyPerformed By: #### [id number] #### [facility] [address], [place] [address]PY Clinical Summaryon 47-30-9635MG Clinical SummaryED Clinical Summary [address] [address] ED Clinical Summary Person Information Name: FLORES HOUSER Rafaela/[facility] Age: 38 Years : 1985 Sex: Female Language: Anguillan PCP: Sybil Reis MD Marital Status: Single Phone: [phone] Visit Id: Visit Reason: Shortness of breath; Dizziness; Back pain; Chest pain; CHEST/BACK/SHOULDER PAIN - LIGHTHEADED Speciality: Acuity: 3 Enc Type: Emergency Med Service: Emergency Arrival: 06/19/2024 11:56:34 Discharge: 06/19/2024 14:19:43 LOS: 000 02:23 Checkin: 06/19/2024 11:56:34 Checkout: 06/19/2024 14:19:43 Dispo Type: Home (Routine DC) EVENTS: Event Name Event Status Request Date/Time Start Date/Time Complete Date/Time Arrive Complete 06/19/2024 11:56:34 06/19/2024 11:56:34 06/19/2024 11:56:34 Document Home Meds Request 06/19/2024 11:56:34 Triage Complete 06/19/2024 11:56:34 06/19/2024 12:07:55 06/19/2024 12:07:55 Bed Assign Complete 06/19/2024 11:59:17 06/19/2024 11:59:17 06/19/2024 11:59:17 Dr Exam Complete 06/19/2024 11:59:17 06/19/2024 12:14:38 06/19/2024 12:14:38 RN Exam Complete 06/19/2024 11:59:17 06/19/2024 12:30:36 06/19/2024 12:30:36 EKG Complete 06/19/2024 12:03:56 06/19/2024 12:08:56 Registration Complete 06/19/2024 12:14:38 06/19/2024 12:57:07 06/19/2024 12:57:07 Dr Exam Complete 06/19/2024 12:18:56 06/19/2024 12:18:56 06/19/2024 12:18:56 Pending Labs Complete 06/19/2024 12:38:09 06/19/2024 13:46:49 Lab Complete 06/19/2024 12:38:09 06/19/2024 13:18:25 Patient Care Request 06/19/2024 12:38:09 RT Request 06/19/2024 12:38:09 X-Ray Complete 06/19/2024 12:38:09 06/19/2024 12:42:18 06/19/2024 12:51:31 Meds Admin Cancel 06/19/2024 12:38:33 06/19/2024 12:39:45 Meds Admin Complete 06/19/2024 12:40:14 06/19/2024 13:12:12 Pending Labs Complete 06/19/2024 12:46:47 06/19/2024 12:46:47 06/19/2024 13:18:25 Lab Complete 06/19/2024 12:46:47 06/19/2024 12:46:47 06/19/2024 13:18:25 Pending Labs Complete 06/19/2024 12:48:30 06/19/2024 12:48:30 06/19/2024 12:48:30 Wet Read Request 06/19/2024 12:51:31 Reg Complete Request 06/19/2024 12:57:07 Reg Bed Request Complete 06/19/2024 12:57:07 06/19/2024 12:57:07 06/19/2024 12:57:07 Discharge Complete 06/19/2024 14:01:09 06/19/2024 14:19:51 06/19/2024 14:19:51 Transfer Complete 06/19/2024 14:19:51 06/19/2024 14:19:51 06/19/2024 14:19:51 ADDRESS: [address] [place] [phone] PHYS DOC NOTES: MEDICAL INFORMATION: Prescriptions Given: New Medications [facility], [address] [place], [place] [id number], [phone] methocarbamol (Robaxin 500 mg Tab) 2 Tablets By Mouth 4 times a day as needed as needed for pain. Refills: 0. PATIENT EDUCATION INFORMATION: Instructions: Nonspecific Chest Pain, Adult, Chkh-oq-Jzor Follow up: With: Address: When: Sybil Reis [address] [place], [place] [id number] Business (1) In 3 days 06/22/2024 Comments: Call to schedule a follow-up appointment with your primary care provider. Use Robaxin as needed forpain along with Tylenol. Robaxin can make you tired, therefore do not drive or operate heavy machinery with use. Return to the ED with any new or worsening symptoms. DIAGNOSIS: Chest wall pain; Strain of left shoulderNormalFisher Arnulfo Medical CenterED Note-Nursingon 42-68-3717PJ Note-NursingED Note-Nursing Patient called for care a this time by this nurse. registration states patient using bathroom.EricKit [facility] CenterED Note-Physicianon 84-61-8088YR Note-PhysicianED Note-Physician Basic Information Time Seen: Ebenezer CORREIA, Jen Maxwell 06/19/2024 12:14 Chief Complaint pt c/o L sided CP and L sided back pain that started this morning. pt also repors SOB and lightheadedness. Pt sent to ER by PCP. History of Present Illness Patient is a 38-year-old female with a history of kidney stones, hydronephrosis, and smoking who presents to the ED with left shoulder and chest wall pain that began this morning. Patient states she was changing her daughter's diaper when she felt instant left shoulder pain radiating into the left anterior lateral chest wall. Patient states at onset of the pain she developed dyspnea and lightheadedness, both of which have resolved. Patient states she became tearful during the pain as well. She called her primary care provider's office, who recommended she come to the ED for evaluation. Patient denies the use of any Tylenol or ibuprofen. She denies a personal history of cardiovascular disease, but endorses a family one. Review of Systems A 10 point review of systems is negative except as noted above. Medical and Surgical History: Reviewed and noted Social history: Lives at home Family History: Reviewed. Tobacco: Former Physical Exam Vitals & Measurements T: 36.3 ???C(Tympanic) HR: 74(Monitored) RR: 18 BP: 112/69 SpO2: 97% HT: 172 cm WT: 106.0 kg BMI: 35.83 General: The patient appears well and in no apparent distress. Patient is resting comfortably on cart. Skin: Warm, dry, no pallor noted. Head: Normocephalic, atraumatic Neck: No JVD Eye: PERRLA, EOMI ENT: Moist mucus membranes Cardiovascular: Regular rate normal peripheral perfusion Respiratory: No respiratory distress no accessory muscle use no obvious audible wheezing Chest Wall: no deformity, no tenderness to palpation of the chest wall Musculoskeletal: normal ROM, no deformity, no swelling, pain is reproducible with flexion of the left shoulder, no focal bony tenderness to the left shoulder/scapula, neurovascularly intact GI: Soft no obvious distention. No rebound or rigidity. No guarding. No tenderness. Neurological: A&O moves all extremities equal strength and symmetry Psychiatric: Cooperative and appropriate Procedure Heart Score for Major Cardiac Event History: Example factors for history - pattern of chest pain, onset, duration, relation with exercise, stress or cold, localization, concomitant symptoms. reaction to sublingual nitrates, [] Highly suspicious +2 [] Moderately suspicious +1 [X] Slightly suspicious 0 EKG: [] Significant ST-Depression +2 [X] Non specific repolarization disturbance +1 [] Normal 0 Age: [] >= 65 +2 [] 45-65 + 1 [X] <45 0 Risk Factors: (HLD, HTN, DM, Cigarette Smoking, Pos Family Hx, Obesity) [] >3 risk factors or hx of atherosclerotic disease + 2 [X] 1-2 risk factors + 1 [] No risk factors known 0 Troponin: [] >= 3X normal + 2 [] 1-3X normal + 1 [X] <= Normal 0 [X] 0-3 Points 0.9 - 1.7% risk of major adverse cardiac event in 6 weeks [] 4-6 Points 12-16.6% risk of major adverse cardiac event in 6 weeks [] 7-10 Points 50-65% risk of major adverse cardiac event in 6 weeks [x] 0-3 Points with 2 sets of negative cardiac markers <1% risk of major adverse cardiac event in 30 days. Medical Decision Making Patient is a 38-year-old female with a history of kidney stones, hydronephrosis, and smoking who presents to the ED with left shoulder and chest wall pain that began this morning while changing her daughter's diaper. Patient is hemodynamically stable and afebrile. Pain is reproducible with flexion of the left shoulder. Patient is given Toradol. EKG shows sinus rhythm without ischemic changes. Labwork is reviewed and grossly unremarkable. Patient had 2 negative troponins. D-dimer is within normal limits. Chest x-ray does not show any acute cardiopulmonary or osseous abnormalities. Heart scoreis 2. Patient was updated on the results. As pain is reproducible with movement of the left shoulder, I do feel this is musculoskeletal in etiology. Patient is prescribed Robaxin and educated on symptomatic management. She will follow-up with her primary care provider. She was advised to return to the ED with any new or worsening symptoms. Patient is agreeable with the plan and all questions wereanswered. Assessment/Plan Chest wall pain (R07.89: Other chest pain) Strain of left shoulder (S46.912A: Strain of unspecified muscle, fascia and tendon at shoulder and upper arm level, left arm, initial encounter) Orders: ketorolac, 15 mg = 1 mL, Injection, IV Push, Once, Stop date 06/19/24 12:39:00 EDT, STAT, Start date 06/19/24 12:39:00 EDT, 06/19/24 12:39:00 EDT methocarbamol, 1,000 mg = 2 tab(s), Oral, QID, PRN as needed for pain, # 8 tab(s), Refills(s) 0, Pharmacy: [facility] (more content not included)... [facility] HospitalComment on above:Result Comment: Electronically Signed By: Ebenezer CORREIA, Jen Colindres.br\Date and Time Signed: 06/19/2513:04 EDT\.br\Electronically Co-Signed By: Saima Moffett M.D.\.br\Date and Time Co-Signed: 06/19/24 15:03 EDTED Patient Summaryon 12-25-4115EM Patient SummaryED Patient Summary [address] [address] Patient Discharge Instructions Person Information Name: FLORES HOUSER Age: 38 Years Arrival Date: 06/19/2024 11:56:34 Discharge Diagnosis: Chest wall pain; Strain of left shoulder Primary Care Physician: Sybil Reis MD Provider Information Primary Provider: Saima Moffett M.D. [employer] Tender:Jen Sol PA-C The exam and treatment you received in the Emergency Department were for an urgent problem and are not intended as complete care. It is important that you follow up with a doctor, nurse practitioner,or physician???s microbiology lab assistant for ongoing care. If your symptoms become worse or you do not improve asexpected and you are unable to reach your usual health care provider, you should return to the Emergency Department. We are available 24 hours a day. FLORES HOUSER has been given the following list of patient education materials, prescriptions and follow-up instructions: Follow-up Instructions: With: Address: When: Sybil Reis [address] [facility] [place] [address] Business () In 3 days 06/22/2024 Comments: Call to schedule a follow-up appointment with your primary care provider. Use Robaxin as needed forpain along with Tylenol. Robaxin can make you tired, therefore do not drive or operate heavy machinery with use. Return to the ED with any new or worsening symptoms. In the event that this physician does not participate in your insurance network, please consult with your insurance company to find a nearby participating provider. Patient Education Materials: Nonspecific Chest Pain, Adult, Ehly-bc-Oldl A MESSAGE TO ALL PATIENTS REGARDING OPIOIDS PRESCRIPTION OPIOIDS: WHAT YOU NEED TO KNOW Prescription opioids can be used to help relieve hlatzfxr-ba-wctsww pain and are often prescribed following a [...] as well, even when taken as directed: ??? Tolerance???meaning you might need to take more of the medication for the same pain relief ??? Physical dependence???meaning you have symptoms of withdrawal when a medication is stopped ??? Increased sensitivity to pain ??? Constipation ??? Nausea, vomiting, and dry mouth ??? Sleepiness and dizziness ??? Confusion ??? Depression ??? Low levels of testosterone that can result in lower sex drive, energy, and strength ??? Itching and sweating RISKS ARE GREATER WITH: ??? History of drug misuse, substance use disorder, or overdose ??? Mental health conditions (such as depression or anxiety) ??? Sleep apnea ??? Older age (65 years and older) ??? Avoid alcohol while taking prescription opioids. Also, unless specifically advised by your health care provider, medications to avoid include: ??? Benzodiazepines (such as Xanax or Valium) ??? Muscle relaxants (such as Soma or Flexeril) ??? Hypnotics (such as Ambien or Lunesta) ??? Other prescription opioids KNOW YOUR OPTIONS Talk to your health care provider about ways to manage your pain that don???t involve prescription opioids. Some of these options may actually work better and have fewer risks and side effects. Options may include: ??? Pain relievers such as acetaminophen, ibuprofen, and naproxen ??? Some medication that are also used for depression or seizures ??? Physical therapy and exercise ??? Cognitive behavioral therapy, a psychological, goal-directed approach, in which patients learn how to modify physical, behavioral, and emotional triggers of pain and stress. IF YOU ARE PRESCRIBED OPIOIDS FOR PAIN: ??? Never take opioids in greater amounts or more often than prescribed. ??? Follow up with your primary health care provider. o Work together to create a plan on how to manage your pain. o Talk about ways to help manage your pain that don???t involve prescription opioids. o Talk about any and all concerns and side effects. ??? Help prevent misuse and abuse o Never sell or share prescription opioids. o Never use another person???s prescription opioids. ??? Store prescription opioids in a secure place and out of reach of others (this may include visitors, children, friends, and family). ??? Safely dispose of unused prescription opioids: Find your community drug take-back program or your pharmacy mail-back (more content not included)... [facility] HospitalHEMATOLOGYOrdered By: SYSTEM SYSTEM on 24-84-3001Dvsanenhc/100 WBC (Bld)0.8 %Normal0.0 - 2.0 %Remisol Heme Basophils/Leukocytes Auto (Bld) [Pure # fraction]0.1 E9/LNormal0.0 - 0.2 E9/L Remisol HemeEosinophils (Bld) [#/Vol]0.1 E9/LNormal0.0 - 0.5 E9/LRemisol Heme Eosinophils/100 WBC (Bld)1.5 %Normal0.0 - 8.0 %Remisol HemeErythrocyte distribution width (RBC) [Ratio]14.4 %High10.9 - 14.2 %Remisol HemeHematocrit (Bld) [Volume fraction]40.5 %Vldfah09.0 - 46.0 %Remisol HemeHemoglobin (Bld) [Mass/Vol]13.6 g/qMUasxxs15.0 - 16.0 gm/dLRemisol HemeLymphocytes (Bld) [#/Vol] 2.6 E9/LNormal1.0 - 4.0 E9/LRemisol HemeLymphocytes/100 WBC (Bld)27.0 %Normal 14.0 - 50.0 %Remisol HemeMCH (RBC) [Entitic mass]29.4 zpFofhuy97.0 - 34.0 pg Remisol HemeMCHC (RBC) [Mass/Vol]33.7 g/sJFuouyt00.4 - 36.0 gm/dLRemisol HemeMCV (RBC) [Entitic vol]87.3 aEJpbzul80.0 - 100.0 fLRemisol HemeMonocytes (Bld) [#/Vol]0.6 E9/LNormal0.2 - 1.0 E9/LRemisol HemeMonocytes/100 WBC (Bld)6.4 % Normal4.0 - 14.0 %Remisol HemeNeutrophils (Bld) [#/Vol]6.2 E9/LNormal2.0 - 7.5 E9/LRemisol HemeNeutrophils/100 WBC (Bld)64.3 %Cxyout82.0 - 75.0 %Remisol Heme Platelet mean volume (Bld) [Entitic vol]9.8 fLNormal6.4 - 10.8 fLRemisol Heme Platelets (Bld) [#/Vol]317.0 E9/EIaduxk853.0 - 500.0 E9/LRemisol HemeRBC (Bld) [#/Vol]4.6 E12/LNormal4.3 - 5.9 E12/LRemisol HemeWBC corrected for nucl RBC Auto (Bld) [#/Vol]9.7 E9/LNormal4.0 - 11.0 E9/LRemisol HemePT & PTTon 42-73-1840oTBU Coag (PPP) [Time]33.8 second(s)Oedyuz19.1-36.5[facility] Comment on above:Result Comment: Parameter 15 days - 4 weeks 1 - 5 months 6 - 11 months 1 - 5 years 6 - 10 years 11 - 17 years PTT Mean: 35.4 (27.6-45.6) Mean: 33.5 (24.8-40.7) Mean: 32.4 (25.1-40.7) Mean: 31.6 (24.0-39.2) Mean: 31.6 (26.9-38.7) Mean: 31.0 (24.6-38.4) Pediatric Reference ranges were obtained from a study by Evans Broderick et al. prepared from 1437 samples obtained at 7 different centers using the same coagulation reagent and instrumentation as [facility]. Currently there are no coagulation studies available worldwide for children to 14 days, andno normal ranges. Heparin therapeutic range (represented by Anti-Factor Xa activity of 0.2 - 0.4 U/mL) corresponds to PTT of 56.6 - 109.0 sec.Performed By: #### [id number] #### [facility] [address] [place] [id number] Coag (PPP) [Relative time]0.96 {INR}Invalid Interpretation CodeKit Mercy Medical CenterComment on above:Result Comment: INR results are specifically intended to assess patients stabilized on long-term Anticoagulation therapy suggested INR???s ???Less Intensive Anticoagulation??? 2.0 ??? 3.0 Conventional Range 3.0 ??? 4.5Performed By: #### [id number] #### [facility] [address], [place] [address]VD Coag (PPP) [Time]10.7 second(s)Normal9.4-12.5FSuburban Community Hospital & Brentwood HospitalComment on above:Result Comment: 15 days - 4 weeks 1 - 5 months 6 -11 months 1-5 years 6-10 years 11 -17 years Mean: 11.2 (9.5-12.6) Mean: 11.0 (9.7-12.8) Mean: 11.0 (9.8-13.0) Mean: 11.3 (9.9-13.4) Mean: 11.7 (10.0-14.6) Mean: 11.8 (10.0 - 14.1) Pediatric Reference ranges were obtained from a study by Evans Broderick et al. prepared from 1437 samples obtained at 7 different centers using the same coagulation reagent and instrumentation as [facility]. Currently there are no coagulation studies available worldwide for children to 14 days, andno normal ranges.Performed By: #### [id number] #### [facility] [address], [place] [address]Xssdmblg 0 Hr.on 67-32-6580Dkvuukyp HS2.80 pg/mLLow10.10-27.10 [facility] HospitalComment on above:Result Comment: The 95% CI (Confidence Interval) PPV (Positive Predictive Value) for myocardial infarction in females is 38 pg/mL, in males 51 pg/mL. The results should be used in conjunction with clinical conditions of myocardial infarction. (Access High Sensitivity Troponin I Instructions For Use, [place], October 2017)Performed By: #### [id number] #### [facility] [address], [place] [address]Uxmykfjp 1 Hr.on 54-86-6694Dzvmbyob HS<2.67Pda55.10-27.10[facility] HospitalComment on above:Order Comment: due @ 1308Result Comment: The 95% CI (Confidence Interval) PPV (Positive Predictive Value) for myocardial infarction in females is 38 pg/mL, in males 51 pg/mL. The results should be used in conjunction with clinical conditions of myocardial infarction. (Access High Sensitivity Troponin I Instructions For Use, [place], October 2017)Performed By: #### [id number] #### [facility] [address], [place] [address]TH Chest Single Viewon [id number] Chest Single ViewExam Date/Time: 06/19/2024 12:51 EDT Reason for Exam: Chest pain Report IMPRESSION: NO ACUTE CARDIOPULMONARY DISEASE CLINICAL HISTORY: Chest pain COMPARISON: 08/26/2023 FINDINGS: Osseous structures intact. Cardiopericardial silhouette normal. Pulmonary vasculature normal. Lungs clear. Technical Comments: denise Montalvo in mGy = na DAP = na Ordering Provider: Jen Sol FINAL REPORT Dictated: 06/19/2024 1:12 pm Dao Hardin MD Signed (Electronic Signature): 06/19/2024 1:12 pm Signed by: Dao Hardin MD Transcribed by: DARRIN Technologist: ShivaniTrihealth Bethesda Butler HospitaleGFRon 85-07-2624nXFR769 mL/min/1.73 x7Wxyluu>=59[facility] HospitalComment on above:Performed By: #### [id number] #### [facility] [address], [place] [address] venous duplex LE RTon [id number] venous duplex LE [facility] [address] [place] [id number] Ultrasound Report Signed Patient: Flores Houser MR#: [id number] : 1985 Acct:[id number] Age/Sex: 38 / F ADM Date: 06/17/24 Loc: [facility] Room: Type: [facility] Attending Dr: Gail Ruby BAND MASTER-C Ordering Provider: Gail Ruby APRN Date of Service: 06/17/24 US/US venous duplex LE RT: I83.811 - Varicose veins of right lower extremity with pain Copies to: Gail Ruby APRN Right lower extremity full functional venous duplex examination Indication for study: Painful varicose veins status post venous intervention PROCEDURE: Color-flow duplex scanning is used to interrogate the venous anatomy of the right lower extremity. The right common femoral vein, femoral vein, and popliteal vein show good compressibility, color-flow, and augmentation. There is no reflux with Valsalva at the saphenofemoral junction. There is been successful closure of varicosities noted in the distal posterior thigh and proximal calf which are now incompressible. US/US venous duplex LE RT IMPRESSION: No evidence for deep vein thrombosis. Successful closure of the artery varicosities with no significant residual venous valvular incompetence. Impression dictated by: Enio Leung M.D.06/17/2024 3:34 PM Dictation Location: [place] [address] Tech: Dionne Colvin Transcribed By: ADILENE 06/17/24 1534 Dictated By: Enio Leung MD 06/17/24 1533 Signed By: 06/17/24 1534[facility] Physician GroupAmbulatory Visit Summaryon [id number] Visit SummaryAmbulatory Visit Summary FLORES HOUSER :1985 Visit Date:01/23/2024 Ambulatory Visit Instructions Your Diagnosis Left otitis media with effusion Your Care Team Attending Physician - Feroz Jacob PA-C Primary Care Physician - Sybil Reis MD This Is Your Medications List amoxicillin (amoxicillin 500 mg Cap) fluticasone nasal (Flonase 0.05 mg/inh [place]) Procedures Performed Nephrostomy tube (05/11/2015), Cystoscopy (04/14/2015), Cystoscopy (03/08/2015), cystoscopy, urethral dilatation, right retrograde pyelogram, right double J ureteral stent placement under fluoroscopic guidance (10/26/2014), section (09/05/2014), Exploratory laparotomy. Discharge Vitals Temperature (Oral) 36.4 ???C Heart Rate (Peripheral) 55 Blood Pressure 120/78 Height 172 cm Height 68 in Weight 102.9 kg Weight 226.38 lb BMI 34.78 Medications What How Much When Why Instructions New amoxicillin (amoxicillin 500 mg Cap) 2 Capsules By Mouth 2 times a day Left otitis media with effusion Duration: 7 Days Pickup at [facility] New fluticasone nasal (Flonase 0.05 mg/ inh [place]) 1 Sprays Nasal Inhalation 2 times a day Left otitis media with effusion Duration: 7 Days each nostril Pickup at [facility] Pharmacy Information [facility]: [address] [place], [place] [phone] Allergies Keflex (Hives) Problems Ongoing - Any [...] you for choosing us for your care. [facility] Medicine Office/Clinic Noteon [id number]inic Note[facility] Chief Complaint ear pain HPI Staff complaints of possible ear infection Onset: 3 days characteristics: left side, pain going down to jaw OTC tried: History of Present Illness I have reviewed and verified the staff HPI to be accurate for this encounter. Portions of this record have been created with voice recognition software. Occasional wrong-word or???njtay-h-tbxs??? substitutions may have occurred due to the inherent limitations of voice recognition software. 38 yo female presents today with cc of ear pain. Patient states onset x 3 days ago states left-sided ear pain she would rated as an 8 out of 10 on the pain scale states the pain is rating from the left ear down into her jaw. She denies any dental pain sore throat runny stuffy nose cough or cold-like symptoms. She denies any fever chills or weakness with this. Denies any ear drainage. She has no other concerns at this time. Review of Systems PHQ Score Initial Depression Screen Score: 0 SCORE ROS negative unless otherwise stated in HPI. Physical Exam Vitals & Measurements T: 36.4 ???C(Oral) HR: 55(Peripheral) BP: 120/78 SpO2: 98% HT: 68 in HT: 172 cm WT: 102.9 kg WT: 226.38 lb BMI: 34.78 General: Well developed, well nourished, in no acute distress Eyes: Bilateral conjunctiva within normal limits no injection Ears: Right TM is within normal limits no erythema or bulging. Bilateral external auditory canals with normal limits no erythema or edema. The left TM is bulging erythematous with fluid behind it concerning for left otitis media Nose: No deformity, discharge, inflammation, or lesions Mouth: Moist mucous membranes. Uvula is midline. No acute tonsillar erythema edema or exudate. No signs of peritonsillar abscess. No trismus or drooling. Neck: no adenopathy Lungs: Lung sounds are clear bilaterally. No wheezing rhonchi or crackles on exam. Cardio: S1, S2, regular rhythm. No murmurs gallops or rubs. Abdomen: not assessed Musculoskeletal: not assessed Extremity: not assessed Neurologic: not assessed Skin: not assessed Mental Status: Alert and oriented x3. Normal mood and affect Assessment/Plan I spoke with patient regards to treatment of left otitis media with effusion will treat with amoxicillin twice daily x 7 days duration in addition to Flonase nasal spray twice daily x 7 days patient will otherwise follow closely with PCP return if needed patient agrees and understands plan of care. 1. Left otitis media with effusion (H65.92: Unspecified nonsuppurative otitis media, left ear) Will treat with amoxicillin bid x 7 days. Finish course. Fluids/rest, PRN tylenol/ibuprofen for pain and/or fever encouraged. Discussed other cold symptoms remain viral in nature- typical duration 7-14 days. May use flonase for symptomatic tx. Encouraged to follow up with PCP for recheck in about 5days to ensure infection resolving, especially if symptoms worsening or fevers. Patient verbalized understanding of treatment plan. Ordered: amoxicillin, 1,000 mg = 2 cap(s), Oral, BID, X 7 day(s), # 28 cap(s), Refills(s) 0, Pharmacy: [facility], 172, cm, 01/23/24 15:19:00 EST, Height/Length Dosing, 102.9, kg, 01/23/24 15:19:00 EST, Weight Dosing fluticasone nasal, 1 spray(s), Nasal, BID for 7 day(s), 16 gm, Refill(s) 0, each nostril, [facility], 172, cm, 01/23/24 15:19:00 EST, Height/Length Dosing, 102.9, kg, 01/23/24 15:19:00 EST, Weight Dosing Follow-up With When Contact Information Smiley GIMENEZ, [place] [address] [place] [address]- Additional Instructions: Patient Education Otitis Media With Effusion, Adult Otitis Media, Adult, [place] Problem List/Past Medical History Ongoing Bilateral kidney [...] guidance (10/26/2014), section (09/05/2014), Exploratory laparotomy. Medications amoxicillin 500 mg Cap, 1000 mg= 2 cap(s), Oral, BID Flonase 0.05 mg/inh [place], 1 spray(s), Nasal, BID Allergies Keflex (Hives) Social History Alcohol - Denies Alcohol Use, 09/03/2012 Current, 04/09/2020 Current, 1-2 times per month, 09/14/2019 Current, 05/16/2019 Substance Abuse - Denies Substance Abuse, 09/03/2012 Current, 04/09/2020 Current, 05/16/2019 Tobacco - Low Risk, 12/08/2019 Former smoker, quit more than 30 days ago Tobacco Use:. Never Smokeless Tobacco Use:. Cigarettes, Household tobac (more content not included)...Berger HospitalComment on above:Result Comment: Electronically Signed By: Cecil CORREIA, Feroz Wilder\.br\Date and Time Signed: 01/22/2415:31 ESTED Note-Physicianon [id number] Note-PhysicianED Note-Physician Basic Information Time Seen: Trent Becker PA-C 12/21/2023 14:29 Chief Complaint fell down the last two stairs at her house. pain in valdes and ankle on right side. denies hitting head, LOC and thinenrs. History of Present Illness 38-year-old female reports emergency department after a fall. Reports that she missed the last 2 steps going downstairs. She states that she fell and her ankle twisted. Reports no loss of consciousness. Reports really coming back. No other get checked out. Has not anything for pain. Denies any blood thinners. Denies any pain except the left ankle going up into her valdes. She reports has been able to walk with it. Review of Systems No other aggravating or relieving factors no other associated symptoms no other prior treatments orcomplaints. Family: Reviewed and noncontributory Social: lives at home Review of systems negative unless otherwise specified in the HPI. Physical Exam Vitals & Measurements T: 36.5 ?C(Oral) HR: 79(Monitored) RR: 18 BP: 104/66 SpO2: 98% HT: 172 cm WT: 99.8 kg BMI: 33.73 General: The patient appears well and in no apparent distress. Patient is resting comfortably on bed. Afebrile Skin: Warm, dry, no pallor noted. No abrasions noted. Head: Normocephalic, atraumatic Neck: No JVD Eye: PERRLA, EOMI ENT: Moist mucus membranes Cardiovascular: Regular rate normal peripheral perfusion. Pedal pulses +2 bilaterally Respiratory: No respiratory distress no accessory muscle use no obvious audible wheezing Chest Wall: no deformity Musculoskeletal: Limited range of motion right ankle due to pain. Tenderness along the lateral malleolus. No obvious deformity. No swelling noted. No erythema. GI: No obvious distention Neurological: A&O moves all extremities equal strength and symmetry Psychiatric: Cooperative and appropriate Medical Decision Making MEDICAL DECISION MAKING Number and Complexity of Problems Differential Diagnosis: [] MDM Data External documents reviewed: [] My EKG interpretation: [] My CT interpretation: [] My X-ray interpretation: Reviewed My Ultrasound interpretation: [] Decision rules/scores evaluated: [] Discussed with: [] Treatment and Disposition ED Course: 38-year-old female reports to Emergency Department with complaints of right ankle pain. Reports that she fell, she missed the last 2 steps going down her stairs. Exam the patient is ratherbenign she. She does have a mild tenderness along the lateral malleolus of the right ankle, no other obvious findings. Otherwise neurovascular intact. Due to concerns, we did do x-rays. X- rays were negative for any acute fracture. Discussed this with the patient who is understanding. Discussed likely ankle sprain. Continue to rest, ice, compress, and elevate your affected joint to relieve inflammation and swelling. You may also take prescribed naproxen and Tylenol to help with pain. Follow-up with your primary care provider in 3 to 5 days. If symptoms worsen, do not improve, or new symptoms arise please report back to emergency department for further evaluation. The patient was understanding and agreeable to plan moving forward. Shared decision making: [] Code status: [] Assessment/Plan Right ankle sprain (S93.401A: Sprain of unspecified ligament of right ankle, initial encounter) Orders: ibuprofen, 800 mg = 1 tab(s), Tab, Oral, Once, Stop date 12/21/23 14:36:00 EDT, STAT, Start date 12/21/23 14:36:00 EDT, 12/21/23 14:36:00 EDT naproxen, 500 mg = 1 tab(s), Oral, BID, PRN Pain, with food, # 20 tab(s), Refills(s) 0, Pharmacy: [facility], 172, cm, 12/21/23 14:29:00 EDT, Height/Length Dosing, 99.8, kg, 12/21/23 14:29:00 EDT, Weight Dosing XR Ankle 3+ Views Right XR Tib/Fib Right 2 View Medications Administered Given ibuprofen 800 mg Tab, 800 mg, Oral Disposition Plan Patient Discharge Condition stable Discharge Disposition to home Discharge Prescription List Prescriptions naproxen 500 mg Tab, 500 mg= 1 tab(s), Oral, BID, PRN Follow-up With When Contact Information Sybil Reis In 3 days 12/24/[address] [place] [address]- Business (1) Additional Instructions: Call Dr for diagnosis based follow up. Continue to rest, ice, compress, and elevate your affected joint to relieve inflammation and swelling. You may also take Tylenol to help with pain. Patient Education RICE Therapy for Routine Care of Injuries, Jbrl-dc-Qbme Ankle Sprain, Phase II Rehab Ankle Sprain, Phase I Rehab Ankle Sprain, Rgpq-ry-Oxiq Attestation Patient seen and evaluated by the physician microbiology lab assistant. Attending physician was present in the emergency department and supervised care. This visit was performed by both the physician and an APC. I performed all aspects of the MDM as documented. This report was transcribed using voice recognition software. Every effort was made to ensure accuracy, however, inadvertently (more content not included)... [facility] HospitalComment on above:Result Comment: Electronically Signed By: Trent Becker PA-C\.br\Date and Time Signed: 12/20/2414:45 EDT\.br\Electronically Co-Signed By: Lance Cortes DO\.br\Date and Time Co- Signed: 12/22/23 07:13 EDTED Clinical Summaryon [id number] Clinical SummaryED Clinical Summary [address] [address] ED Clinical Summary Person Information Name: FLORES HOUSER [place] Age: 38 Years : 1985 Sex: Female Language: Anguillan PCP: Sybil Reis MD Marital Status: Single Phone: [phone] Visit Id: Visit Reason: Ankle pain-swelling; Leg pain-swelling; Fall; RIGHT LEG PAIN / FALL Speciality: Acuity: 4 Enc Type: Emergency Med Service: Emergency Arrival: 12/21/2023 14:18:58 Discharge: 12/21/2023 15:14:05 LOS: 000 00:56 Checkin: 12/21/2023 14:18:58 Checkout: 12/21/2023 15:14:05 Dispo Type: Home (Routine DC) EVENTS: Event Name Event Status Request Date/Time Start Date/Time Complete Date/Time Arrive Complete 12/21/2023 14:18:58 12/21/2023 14:18:58 12/21/2023 14:18:58 Document Home Meds Request 12/21/2023 14:18:58 Triage Complete 12/21/2023 14:18:58 12/21/2023 14:29:49 12/21/2023 14:29:49 Registration Complete 12/21/2023 14:22:09 12/21/2023 14:22:09 12/21/2023 14:22:09 Reg Complete Request 12/21/2023 14:22:09 Reg Bed Request Complete 12/21/2023 14:22:09 12/21/2023 14:22:09 12/21/2023 14:22:09 Bed Assign Complete 12/21/2023 14:24:49 12/21/2023 14:24:49 12/21/2023 14:24:49 Dr Exam Complete 12/21/2023 14:24:49 12/21/2023 14:29:44 12/21/2023 14:29:44 RN Exam Complete 12/21/2023 14:24:49 12/21/2023 14:56:08 12/21/2023 14:56:08 Registration Request 12/21/2023 14:29:44 X-Ray Complete 12/21/2023 14:36:14 12/21/2023 14:36:44 12/21/2023 14:56:35 Dr Exam Complete 12/21/2023 14:36:33 12/21/2023 14:36:33 12/21/2023 14:36:33 Meds Admin Complete 12/21/2023 14:36:40 12/21/2023 14:56:41 Wet Read Request 12/21/2023 14:56:35 Discharge Complete 12/21/2023 15:06:18 12/21/2023 15:14:10 12/21/2023 15:14:10 Transfer Complete 12/21/2023 15:14:10 12/21/2023 15:14:10 12/21/2023 15:14:10 ADDRESS: [place] [id number] PHYS DOC NOTES: MEDICAL INFORMATION: Prescriptions Given: New Medications [facility], [address] [place] [id number], [phone] naproxen (naproxen 500 mg Tab) 1 Tablets By Mouth 2 times a day as needed Pain. with food. Refills:0. Medications to Continue with No Changes Other Medications albuterol (Albuterol (Eqv-ProAir HFA) 90 mcg/inh inhalation aerosol) 2 Puffs Inhalation every 4 hours. Refills: 0. cyclobenzaprine (cyclobenzaprine 10 mg Tab) 1 Tablets By Mouth 3 times a day as needed for spasm. Refills: 0. dextromethorphan-promethazine (dextromethorphan-promethazine 15 mg-6.25 mg/5 mL Oral Syrup 5 mL) 5 Milliliter By Mouth every 6 hours as needed for cough. Refills: 0. multivitamin predniSONE (predniSONE 20 mg Tab) 3 po qam x3 days then 2po qam x3 days then 1 po qam x3 days. May stop the prednisone early if the cough resolves early. Refills: 0. PATIENT EDUCATION INFORMATION: Instructions: RICE Therapy for Routine Care of Injuries, Fbgu-lr-Nieq; Ankle Sprain, Phase II Rehab; Ankle Sprain, Phase I Rehab; Ankle Sprain, Kcma-rb-Lxqm Follow up: With: Address: When: [place] [address] [place] [address] Business (1) In 3 days 12/24/2023 Comments: Call Dr for diagnosis based follow up. Continue to rest, ice, compress, and elevate your affected joint to relieve inflammation and swelling. You may also take Tylenol to help with pain. DIAGNOSIS: Right ankle sprainNormalFisher [facility] CenterED Patient Summaryon [id number] Patient SummaryED Patient Summary [address], [place] [address] Patient Discharge Instructions Person Information Name: FLORES HOUSER Age: 38 Years Arrival Date: 12/21/2023 14:18:58 Discharge Diagnosis: Right ankle sprain Primary Care Physician: Smiley GIMENEZ, Sybil Mendoza Provider Information Primary Provider: Lance Cortes DO Advanced Automatic Lump Making Machine Tender:None The exam and treatment you received in the Emergency Department were for an urgent problem and are not intended as complete care. It is important that you follow up with a doctor, nurse practitioner,or physician?s microbiology lab assistant for ongoing care. If your symptoms [...] With: Address: When: [place] [place] [address] Business (1) In 3 days 12/24/2023 Comments: Call Dr for diagnosis based follow up. Continue to rest, ice, compress, and elevate your affected joint to relieve inflammation and swelling. You may also take Tylenol to help with pain. In the event that this physician does not participate in your insurance network, please consult with your insurance company to find a nearby participating provider. Patient Education Materials: RICE Therapy for Routine Care of Injuries, Cqqz-ux-Rmqz; Ankle Sprain, Phase II Rehab; Ankle Sprain, Phase I Rehab; Ankle Sprain, Kebx-gb-Acfa A MESSAGE TO ALL PATIENTS REGARDING OPIOIDS PRESCRIPTION OPIOIDS: WHAT YOU NEED TO KNOW Prescription opioids can be used to help relieve oryyqkou-nx-gromrc pain and are often prescribed following a [...] and have fewer risks and side effects. Optionsmay include: ? Pain relievers such as acetaminophen, [...] unused prescription opioids: Find your community drug take- back program or yourpharmacy mail-back program, or flush them down the toilet, following guidance from the Food and Drug Administr (more content not included)...Berger HospitalXR Ankle 3+ Views Righton [id number] Ankle 3+ Views RightExam Date/Time: 12/21/2023 14:56 EDT Reason for Exam: Fall Report IMPRESSION: NO ACUTE OSSEOUS ABNORMALITY. EXAM: XR Ankle 3+ Views Right COMPARISON: None available HISTORY: Ankle pain FINDINGS: AP, lateral and oblique views of the ankle were obtained. FINDINGS: No acute fracture or dislocation. Ankle mortise is within normal limits. Talar dome is intact. Soft tissues are within normal limits. Ordering Provider: Trent Becker FINAL REPORT Dictated: 12/21/2023 3:02 pm Franco Garcia DO Signed (Electronic Signature): 12/21/2023 3:02 pm Signed by: Franco Garcia DO Transcribed by: DARRIN Technologist: [place] Technical Comments Radiation Dose: Ka,r in mGy = na DAP = [facility]XR Tib/Fib Right 2 Viewon [id number] Tib/Fib Right 2 ViewExam Date/Time: 12/21/2023 14:56 EDT Reason for Exam: Fall Report IMPRESSION: NO ACUTE OSSEOUS ABNORMALITY. EXAMINATION: X-ray tibia and fibula, 2 view HISTORY: Lower extremity pain TECHNIQUE: AP and lateral views of the right tibia and fibula COMPARISON: None available FINDINGS: No acute or aggressive abnormality of the tibia or fibula. Soft tissues appear within normal limits. Ordering Provider: Trent Becker FINAL REPORT Dictated: 12/21/2023 3:02 pm Franco Garcia DO Signed (Electronic Signature): 12/21/2023 3:02 pm Signed by: Franco Garcia DO Transcribed by: DARRIN Technologist: [place] Technical Comments Radiation Dose: Ka,r in mGy = na DAP = [facility] HospitalUS LE Venous Duplex Insufficiency Bilat on [id number] LE Venous Duplex Insufficiency BilatExam Date/Time: 11/27/2023 10:10 EDT Reason for Exam: I83.813 Report IMPRESSION: NO DVT OF EITHER LOWER EXTREMITY IDENTIFIED. EXAM: US LE Venous Duplex Insufficiency Bilat DATE: 11/27/2023 9:36 AM CLINICAL HISTORY: I83.813. COMPARISON: None available. TECHNIQUE: Aguirre scale, compression, color and waveform Doppler analysis of the deep and superficial venous systems of both lower extremities was performed with augmentation. Spectral Doppler waveforms were evaluated for spontaneity, phasicity and appropriate augmentation. FINDINGS: An approximately 5.2 seconds of reflux is observed within the left greater saphenous vein of the proximal calf, 3.2 seconds mid calf, 5.9 seconds MID to proximal calf. Multiple patent superficial venous varicosities are noted arising from the left greater saphenous vein of the mid to proximal calf, measuring up to approximately 4 to 5 mm in caliber. There is no venous thrombus, abnormal masses, organized fluid collections, or other findings of concern identified within either lower extremity. Ordering Provider: RANDY MATIAS FINAL REPORT Dictated: 11/29/2023 2:49 pm Robert Ramírez MD Signed (Electronic Signature): 11/29/2023 2:49 pm Signed by: Robert Ramírez MD Transcribed by: DARRIN Technologist: EFREN, Technical Comments Patient Position Reverse Trendelenburg CFV Reflux (sec): None. DFV Reflux (sec): None. FV Prox Reflux (sec): None. FV Mid Reflux (sec): None. FV Dist Reflux (sec): None. Pop V Reflux (sec): None. Technical Comments Right Greater Saphenous: Saphenofemoral Junction (at/near): Diameter 0.6 Depth: Intrafascial Reflux (sec): None. Prox thigh: Diameter 0.4 Depth: Intrafascial Reflux (sec): None. Mid thigh: Diameter 0.4 Depth: Intrafascial Reflux (sec): None. Distal thigh: Diameter 0.4 Depth: Intrafascial Reflux (sec): None. At Knee Diameter 0.4 Depth: Intrafascial Reflux (sec): None. Proximal lower leg: Diameter 0.4 Depth: Extrafascial Reflux (sec): None. Mid lower leg: Diameter 0.4 Depth: Intrafascial Reflux (sec): None. Accessory Saphenous: Lateral Diameter 0.4 Depth: Intrafascial Reflux (sec): None. Right Small Saphenous: Connects to: Distal Thigh Junction/Proximal Calf Diameter 0.2 Depth: Intrafascial Reflux (sec): None. Mid calf: Diameter 0.3 Depth: Intrafascial Reflux (sec): None. CFV Reflux (sec): None. DFV Reflux (sec): None. FV Prox Reflux (sec): None. FV Mid Reflux (sec): None. FV Dist Reflux (sec): None. Pop V Reflux (sec): None. Left Greater Saphenous: Saphenofemoral Junction (at/near): Diameter 0.7 Depth: Intrafascial Reflux (sec): None. Prox thigh: Diameter 0.5 Mid thigh: Diameter 0.5 Depth: Intrafascial Reflux (sec): None. Distal thigh: Diameter 0.4 Depth: Intrafascial Reflux (sec): None. At Knee Diameter 0.4 Depth: Intrafascial Reflux (sec): None. Proximal lower leg: Diameter 0.4 Depth: Intrafascial Reflux (sec): Sec 5.2 Mid lower leg: Diameter 0.4 Depth: Intrafascial Reflux (sec): Sec 3.2 Accessory Saphenous: Lateral Diameter 0.4 Depth: Intrafascial Reflux (sec): None. Left Small Saphenous: Connects to: Distal Thigh Junction/Proximal Calf Diameter 0.2 Depth: Intrafascial Technical Comments Reflux (sec): None. Mid calf: Diameter 0.3 Depth: Intrafascial Reflux (sec): None.NormalTrihealth Bethesda Butler HospitalIGP,APTIMA HPV,AGE GDLNon [id number] GDLN ACOG TESTINGNote.NOMS HealthcareComment on above:TESTS RESULT FLAG UNITS REF RANGE LAB Clinician Provided Cytology Information Source.............Cervix;Endocervix No. of containers..01 ThinPrep Vial Age Algo ACOG Carla... FLAG LEGEND: L-Low Normal,H-High Normal,LL-Alert Low,HH-Alert High <-Panic Low,>-Panic High,A-Abnormal,AA-Critical Abnormal Performed at: 01 =[address] [address] Margaret Dumont MD, HPV APTIMANegativeNegativeNOMS HealthcareComment on above:This nucleic acid amplification test detects fourteen high- risk HPV types (16,18,31,33,35,39,45,51,52,56,58,59,66,68) without differentiation. Performed at: = - [address] [id number] Clamp Carrier Operator: Margaret Dumont MD, Phone: [phone] Performed at: [facility] [address] [place] [id number] Clamp Carrier Operator: Kaushik Henderson MD, Phone: [phone] IGP, APTIMA HPV, RFX 16/18,45Note.NOMS HealthcareComment on above:TESTS RESULT FLAG UNITS REF RANGE LAB DIAGNOSIS: 02 NEGATIVE FOR INTRAEPITHELIAL LESION OR MALIGNANCY. Specimen adequacy: 02 Satisfactory for evaluation. No endocervical component is identified. Performed by: Basilio Martines Hearse Driver (ASCP) . 02 Note: Note 03 The Pap smear is a screening test designed to aid in the detection of premalignant and malignant conditions of the uterine cervix. It is not a diagnostic procedure and should not be used as the sole means of detecting cervical cancer. Both false-positive and false-negative reports do occur. Test Methodology: Note 03 This liquid based ThinPrep(R) pap test was screened with the use of an image guided system. HPV Genotype Reflex Note 02 Criteria not met, HPV Genotype not performed. FLAG LEGEND: L-Low Normal,H-High Normal,LL-Alert Low,HH-Alert High <-Panic Low,>-Panic High,A-Abnormal,AA-Critical Abnormal Performed at: 02 [facility] [address] [place] [address] Kaushik Henderson MD, 03 WB [facility] [address] [address] Margaret Angelica Dumont MD, BRUSH-SPATULA CERVIX ENDOCERVIX CLINISYNCNOMS HealthcareUrinalysis macro (dipstick) panel (U)on 11-13-2023 Bilirubin, UANegativeNegative - 4(70) +++ mg/dLNOMS HealthcareBlood, UANegative Negative - 50 Flako/mcLNOMS HealthcareClarity, UAClearNOMS HealthcareColor, UA YellowNOMS HealthcareGlucose, UANegativeNegative - 2000(110) ++++ mg/dLNOMS HealthcareInterpretation and review of laboratory resultsNormalNOMS Healthcare Ketones, UANegativeNegative - 160(16) ++++ mg/dLNOMS HealthcareLeukocytes, UA NegativeNegative - 500+++ Diaz/mcLNOMS HealthcareNitrite, UANegativeNegative - PositiveNOMS HealthcarepH, UA7.05 - 9NOMS HealthcareProtein, UANegativeNegative - 2000(20) ++++ mg/dLNOMS HealthcareSpec Grav, UA1.0201 - 1.03N[facility]S Healthcare Urobilinogen, UA0.20.2 - 12 mg/dLNOMS HealthcareNOMS HealthcareMR HEAD/BRAIN WO CONon 50-94-0334Lov[place], [place] [address] Magnetic Resonance Report Signed Patient: FLORES HOUSER MR#: [id number] : 1985 Acct:[id number] Age/Sex: 38 / F ADM Date: 10/25/23 Loc: MRI Attending Dr: HODAN MCKEON Ordering Physician: HODAN MCKEON Date of Service: 10/25/23 Procedure(s): MR head/brain wo con Accession Number(s): [id number] cc: HODAN MCKEON ; FERNY REIS [place] [address] Patient Name: FLORES HOUSER MRN: [id number] date: 1985 Sex: F Assigned Patient Location: MRI Current Patient Location: MRI Accession/Order Number: [id number] Exam Date: 10/25/2023 13:05 Report Date: 10/25/2023 14:25 At the request of: HODAN MCKEON Procedure: MR head/brain wo con EXAM: MR head/brain wo con HISTORY: Blurring Of Visual Images H53.8 COMPARISON: None. TECHNIQUE: MRI of the brain was performed without contrast. FINDINGS: Exam is distorted secondary to patient's nonremovable face jewelry. Findings are made within these confines. There is no restricted diffusion to suggest acute infarct. There is no midline shift, mass effect, or abnormal extraaxial fluid collections. The cortical sulci and ventricular system are within normal limits. The major intracranial flow voids are visualized. The cerebellar tonsils are normal in position. The orbits are unremarkable. The paranasal sinuses show no air-fluid level. The mastoid air cells are clear. The calvarium and extracranial soft tissues are unremarkable. MR/MR head/brain wo con IMPRESSION: Normal brain MRI performed without contrast. Electronically authenticated by: DERIK ROSARIO Date: 10/25/2023 14:25 Dictated By: DERIK ROSARIO M.D. Signed By: 10/25/23 1427 DD/ 1425 TD/TT: Hot Packer:WALIadiology, Radiologist, - 10/25/2023 [address] [place] [id number] Magnetic Resonance Report Signed Patient: FLORES HOUSER MR#: [id number] : 1985 Acct:[id number] Age/Sex: 38 / F ADM Date: 10/25/23 Loc: MRI Attending Dr: HODAN MCKEON Ordering Physician: HODAN MCKEON Date of Service: 10/25/23 Procedure(s): MR head/brain wo con Accession Number(s): [id number] cc: HODAN MCKEON ; FERNY REIS [place] [id number] Patient Name: FLORES HOUSER MRN: [id number] date: 1985 Sex: F Assigned Patient Location: MRI Current Patient Location: MRI Accession/Order Number: [id number] Exam Date: 10/25/2023 13:05 Report Date: 10/25/2023 14:25 At the request of: HODAN MCKEON Procedure: MR head/brain wo con EXAM: MR head/brain wo con HISTORY: Blurring Of Visual Images H53.8 COMPARISON: None. TECHNIQUE: MRI of the brain was performed without contrast. FINDINGS: Exam is distorted secondary to patient's nonremovable face jewelry. Findings are made within these confines. There is no restricted diffusion to suggest acute infarct. There is no midline shift, mass effect, or abnormal extraaxial fluid collections. The cortical sulci and ventricular system are within normal limits. The major intracranial flow voids are visualized. The cerebellar tonsils are normal in position. The orbits are unremarkable. The paranasal sinuses show no air-fluid level. The mastoid air cells are clear. The calvarium and extracranial soft tissues are unremarkable. MR/MR head/brain wo con IMPRESSION: Normal brain MRI performed without contrast. Electronically authenticated by: DERIK ROSARIO Date: 10/25/2023 14:25 Dictated By: DERIK ROSARIO M.D. Signed By: 10/25/23 1427 DD/ 1425 TD/TT: Hot Packer: HOLLY HealthcareRadiology Study observation (narrative)HOLLY HealthcareMR HEAD/BRAIN WO CONOrdered By: Radiologist Radiology on 32-68-7703[facility] Work Phone: consent for Treatmenton 72-84-6520Ivrdcsm for [id number]#1.00[facility] HospitalDischarge Instructionson 51-52-4573Lzoibkvdk Instructions [id number]#1.00TIFWadsworth-Rittman Hospital Clinical Summaryon [id number] Clinical Summary [place] [id number] ED Clinical Summary Person Information Name: FLORES HOUSER [facility] Age: 37 Years : 1985 Sex: Female Language: Anguillan PCP: Smiley GIMENEZ, Sybil Mendoza Marital Status: [...] 10:49:03 08/26/2023 10:49:03 08/26/2023 10:49:03 ADDRESS: [address] [id number] PHYS DOC NOTES: MEDICAL INFORMATION: Prescriptions Given: New Medications [facility], [address] [place], [place] [id number], [phone] doxycycline (doxycycline monohydrate 100 mg oral tablet) [...] day as needed for spasm. Refills: 0. dextromethorphan-promethazine (dextromethorphan-promethazine 15 mg-6.25 mg/5 mL Oral Syrup 5 [...] Instructions: Follow up: With: Address: When: Sybil [place] [address] [facility] () In 3 days DIAGNOSIS: PneumoniaNormalFisher Kit Carson Medical CenterED Note-Physicianon 61-43-9128EX Note-PhysicianBasic Information Time Seen: Lance Cortes DO 08/26/2023 [...] is feeling like this is now settling intoher chest. She does believe that she has been using her inhaler and also some steroids and additionof some liquid cough medicine. She does not believe that she is on any antibiotics. Patient denies any chance of stating salpingectomy. She states that her pain in her ears and throat has go tten a lot better with the medications but now she is feeling this tightness and cough and wheeze into her chest. No other aggravating or relieving factors no other associated symptoms no other priortreatments or complaints. Family: Reviewed and noncontributory Social: [...] day(s), # 14 tab(s), Refills(s) 0, Pharmacy: [facility], 172.7, cm, 08/26/23 10:11:00 EDT, Height/Length Dosing, 99, kg, 08/26/23 10:11:00 EDT, Weight Dosing ECG 12 Lead Adult XR Chest 2 Views Disposition Plan Discharge Prescription List Prescriptions doxycycline monohydrate 100 mg oral tablet, 100 mg= 1 tab(s), Oral, BID Follow-up With When Contact Information Sybil Reis In [address] [place] [address]- Business (1) Additional Instructions: Problem List/Past Medical [...] 1 tab(s), Oral, TID, PRN, Not taking dextromethorphan-promethazine 15 mg-6.25 mg/5 mL Oral Syrup 5 [...] * Preliminary * 06 (more content not included)...Berger HospitalComment on above:Result Comment: Electronically Signed By: Lance Cortes DO\.br\Date and Time Signed: 08/26/23 10:36EDTED Patient Education Noteon 26-70-1185LU Patient Education NoteNoSt. John of God Hospital Patient Summaryon [id number] Patient Summary [address] [address] Patient Discharge Instructions Person Information Name: FLORES HOUSER Age: 37 Years Arrival Date: 08/26/2023 09:45:36 Discharge Diagnosis: Pneumonia Primary Care Physician: Sybil Reis MD Provider Information Primary Provider: Lance Cortes DO Advanced Automatic Lump Making Machine Tender:None The exam and treatment you received in the Emergency Department were for an urgent problem and are not intended as complete care. It is important that you follow up with a doctor, nurse practitioner,or physician?s microbiology lab assistant for ongoing care. If your symptoms [...] With: Address: When: [place] [address] [place] [address] Business (1) In 3 days In the event that this physician does not participate in your insurance network, please consult with your insurance company to find a nearby participating provider. Patient Education Materials: A MESSAGE TO ALL PATIENTS REGARDING OPIOIDS PRESCRIPTION OPIOIDS: WHAT YOU NEED TO KNOW Prescription opioids can be used to help relieve fjcqgghy-rc-zzbmec pain and are often prescribed following a [...] and have fewer risks and side effects. Optionsmay include: ? Pain relievers such as acetaminophen, [...] unused prescription opioids: Find your community drug take- back program or yourpharmacy mail-back program, or flush them down the toilet, following guidance from the Food and Drug Administration (www.fda.gov/Drugs/ResourcesForYou). ? Visit www.cdc.gov/drugoverdose to learn about the risks of opioids abuse and overdose. ? If you believe you may be struggling with addiction, tell your health post anesthesia care unit nurse and ask for guidance or call SAMHSA?S National Helpline at 5-926-406-DIWE. v Source: US Department of Health and Human Services/Center for Disease Control (more content not included)...Berger HospitalXR Chest 2 Views on 61-14-5301JJ Chest 2 ViewsExam Date/Time: 08/26/2023 10:21 EDT Reason for Exam: [...] Ka,r in mGy = na DAP = [facility] HospitalAmbulatory Visit Summaryon 08-22-2023 Ambulatory Visit Summary FLORES HOUSER :1985 Visit Date:08/22/2023 Ambulatory Visit Instructions Your Diagnosis Viral URI with cough Your Care Team Attending Physician - Margaret CORREIA, Matthew W. Primary Care Physician - Smiley GIMENEZ, Sybil Mendoza This Is Your Medications List albuterol (Albuterol (Eqv-ProAir HFA) 90 mcg/inh inhalation aerosol) benzonatate (benzonatate 200 mg oral capsule) cyclobenzaprine (cyclobenzaprine 10 mg Tab) dextromethorphan-promethazine (dextromethorphan-promethazine 15 mg-6.25 mg/5 mL Oral Syrup 5 [...] hours Viral URI with cough Pickup at [facility] New benzonatate (benzonatate 200 mg oral capsule) 1 Capsules By Mouth 3 times a day Viral URI with cough Duration: 10 Days Pickup at [facility] New dextromethorphan-promethazine (dextromethorphan-promethazine 15 mg-6.25 mg/ 5 mL Oral Syrup 5 mL) 5 Milliliter By Mouth Every 6 hours as needed for for cough Viral URI with cough Pickup at [facility] Changed predniSONE (predniSONE 20 mg Tab) See instructions Viral URI with cough 3 po qam x3 days then 2po qam x3 days then 1 po qam x3 days. May stop the prednisone early if the cough resolves early Pickup at [facility] Unchanged cyclobenzaprine (cyclobenzaprine 10 mg Tab) 1 Tablets By Mouth 3 times a day as needed for for spasm Unchanged multivitamin Pharmacy Information [facility]: [address] [place], [place] [id number] [phone] Allergies Keflex (Hives) Problems Ongoing - Any [...] you for choosing us for your care. [facility] Medicine Office/Clinic Noteon 46-62-2830[facility] Medicine Office/Clinic NoteChief Complaint ear pain, sore throat, cough HPI [...] puff(s), Inhalation, q4hr, 18 gm, Refill(s) 0, [facility], 172.7, cm, 08/22/23 17:00:00 EDT, Height/Length Dosing, 98.4, kg, 08/22/23 17:00:00 EDT, Weight Dosing benzonatate, 200 mg = 1 cap(s), Oral, TID, X 10 day(s), # 30 cap(s), Refills(s) 0, Pharmacy: [facility], 172.7, cm, 08/22/23 17:00:00 EDT, Height/Length Dosing, 98.4, kg, 08/22/23 17:00:00 EDT, Weight Dosing dextromethorphan-promethazine, 5 mL, Oral, q6hr for cough, 240 mL, Refill(s) 0, [facility], 172.7, cm, 08/22/23 17:00:00 EDT, Height/Length Dosing, 98.4, kg, 08/22/23 17:00:00 EDT, Weight Dosing predniSONE, See Instructions, 3 po qam x3 days then 2po qam x3 days then 1 po qam x3 days. May stopthe prednisone early if the cough resolves early, # 18 tab(s), Refills(s) 0, Pharmacy: [facility], 172.7, cm, 08/22/23 17:00:00 EDT, Height/Length... Rapid Strep POC 04097 Strep Screen Culture 2. Pharyngitis (J02.9: Acute [...] 1 tab(s), Oral, TID, PRN, Not taking dextromethorphan-promethazine 15 mg-6.25 mg/5 mL Oral Syrup 5 [...] Results Rapid Strep POC Result: Negative (08/22/23 17:16:00)Berger HospitalComment on above:Result Comment: Electronically Signed By: Margaret CORREIA, Matthew WDora\.br\Date and Time Signed: 08/22/23 17:20 EDTUS LE VENOUS DUPLEX LEFTon 05-17-2023 Exam Date/Time: 05/16/2023 16:45 EST Reason for Exam: R22.42 Report [facility] [phone] IMPRESSION: NO EVIDENCE OF VENOUS THROMBOSIS INVOLVING [...] demonstrates spontaneous phasic venous flow. Ordering Provider: Filemon Morataya FINAL REPORT Dictated: 05/17/2023 4:46 pm Joe Broderick MD, V. Signed (Electronic Signature): 05/17/2023 4:46 pm Signed by: Joe Broderick MD, V. Transcribed by: DARRIN Technologist: FREEMANCRadiology, RadiologistMD - 05/17/2023 Exam Date/Time: 05/16/2023 16:45 EST Reason for Exam: R22.42 Report [facility] [phone] IMPRESSION: NO EVIDENCE OF VENOUS THROMBOSIS INVOLVING [...] demonstrates spontaneous phasic venous flow. Ordering Provider: Filemon Morataya FINAL REPORT Dictated: 05/17/2023 4:46 pm Joe Broderick MD, V. Signed (Electronic Signature): 05/17/2023 4:46 pm Signed by: Joe Broderick MD, V. Transcribed by: DARRIN Technologist: COURTNEY Denson LE VENOUS DUPLEX LEFTOrdered By: Radiologist Radiology on 72-57-8375[facility] Work Phone: US LE Venous Duplex Lefton [id number] LE Venous Duplex LeftExam Date/Time: 05/16/2023 16:45 EST Reason for Exam: R22.42 Report [facility] [phone] IMPRESSION: NO EVIDENCE OF VENOUS THROMBOSIS INVOLVING [...] demonstrates spontaneous phasic venous flow. Ordering Provider: Filemon Morataya FINAL REPORT Dictated: 05/17/2023 4:46 pm Joe Broderick MD, V. Signed (Electronic Signature): 05/17/2023 4:46 pm Signed by: Joe Broderick MD, V. Transcribed by: DARRIN Technologist: FlorianDelaware County HospitalConsent for Treatmenton 88-07-8953Qlghipy for Treatment [id number]#1.00TIFLima City Hospital LE VENOUS DUPLEX LEFTon 85-44-1836Wsmeyhfxp Study observation (narrative)NOMS HealthcarePhysician Orderon 36-94-2186Vjisvabru Order [id number]#1.00TIFOhio State Harding HospitalPhysician Orderon 26-35-6304Gcjxjzfxo Order [id number]#1.00TIFOhio State Harding HospitalUS PELVIS NON-OB COMPLETEon 05-04-2023 Exam Date/Time: 05/03/2023 17:14 EST Reason for [...] Ultrasound Performed Transvaginal Ultrasound Performed Uterus Position RetroflexedSAINT FRANCIS HOSPITAL – TULSARadiology, Radiologist, MD - 05/04/2023 Exam Date/Time: 05/03/2023 17:14 EST Reason for [...] Performed Transvaginal Ultrasound Performed Uterus Position Retroflexed [facility] PELVIS NON-OB COMPLETEOrdered By: Radiologist Radiology on 15-67-2483FBQW [employer] Work Phone: US Pelvis Non-OB Completeon 50-62-7383XT Pelvis Non-OB CompleteExam Date/Time: 05/03/2023 17:14 EST Reason for Exam: [...] Ultrasound Performed Transvaginal Ultrasound Performed Uterus Position RetroflexedBerger HospitalUS TRANSVAGINAL NON-OBon 05-04-2023 Exam Date/Time: 05/03/2023 17:15 EST Reason for Exam: Pelvic pain Report Please review report of pelvic ultrasound, non-OB, for report of transvaginal ultrasound Ordering Provider: Sybil Reis FINAL REPORT Dictated: 05/04/2023 10:29 am Dao aHrdin MD Signed (Electronic Signature): 05/04/2023 10:29 am Signed by: Dao Hardin MD Transcribed by: DARRIN Technologist: Nelda, Radiologist, - 05/04/2023 Exam Date/Time: 05/03/2023 17:15 EST Reason for Exam: Pelvic pain Report Please review report of pelvic ultrasound, non-OB, for report of transvaginal ultrasound Ordering Provider: Sybil Reis FINAL REPORT Dictated: 05/04/2023 10:29 am Dao Hardin MD Signed (Electronic Signature): 05/04/2023 10:29 am Signed by: Dao Hardin MD Transcribed by: DARRIN Technologist: PACHECO Denson TRANSVAGINAL NON-OBOrdered By: Radiologist Radiology on 68-66-1705ZHSPSpot [employer] Phone: US Transvaginal Non-OBon 01-19-0167XI Transvaginal Non-OBExam Date/Time: 05/03/2023 17:15 EST Reason for Exam: Pelvic pain Report Please review report of pelvic ultrasound, non-OB, for report of transvaginal ultrasound Ordering Provider: Sybil Reis FINAL REPORT Dictated: 05/04/2023 10:29 am Dao Hardin MD Signed (Electronic Signature): 05/04/2023 10:29 am Signed by: Dao Hardin MD Transcribed by: DARRIN Technologist: Julio CesarlvTrihealth Bethesda Butler HospitalConsent for Treatmenton 24-46-8214Dyjoxwy for Treatment [id number]#1.00TIFFUniversity Hospitals St. John Medical Center PELVIS NON-OB COMPLETEon 17-12-0220Ykujxuxvg Study observation (narrative)NOMS HealthcareUS TRANSVAGINAL NON-OBon 17-55-1607Nfwlhbvkz Study observation (narrative)[facility] HealthcarePhysician Orderon 65-23-9247Kvdaonjqo [id number]#1.00TIFFNormalFisher Fisher-[facility] Center CenterED Note-Physicianon 26-47-8892FL Note-PhysicianBasic Information Time Seen: Kenna Clark PA-C 04/24/2023 [...] production, wheezing, hemoptysis, shortness of breath, dyspnea onexertion Gastrointestinal: Denies abdominal pain, unintentional weight loss, difficulty swallowing, indigestion, bloating, cramping, loss of appetite, nausea, vomiting, diarrhea, constipation, hematochezia, melena Genitourinary: Denies any incontinence of urine, dysuria, hematuria, nocturia, polyuria, hesitancy,frequency, urgency, burning Musculoskeletal: Denies joint pain, morning [...] film x-ray was obtained. Plain film x-ray iswithout any acute findings. I discussed with the patient that is likely she is suffering from pelvic girdle pain caused by chronically carrying her 3-month-old child and supporting her on this hip. Idiscussed the discharge diagnosis, plan of care, home-going [...] of muscle, fascia and tendon of left hip,initial encounter) 2. Pain of pelvic girdle (R10.2: Pelvic and perineal pain) Orders: cyclobenzaprine, 10 mg = 1 tab(s), Oral, TID, PRN for spasm, # 30 tab(s), Refills(s) 0, Pharmacy: [facility], 172.7, cm, 04/24/23 17:12:00 EST, Height/Length Dosing, 99, kg, 04/24/23 17:12:00 EST, Weight Dosing predniSONE, = 1 -, Oral, As Directed, Take 3 tabs by mouth daily x3 days, then 2 tabs daily x3 days, then 1 tab daily x3 days., # 18 tab(s), Refills(s) 0, Pharmacy: [facility], 172.7,cm, 04/24/23 17:12:00 EST, Height/Length Dosing, 99, kg, ... XR Hip 2-3 Views Left + Pelvis (more content not included)...Berger HospitalComment on above:Result Comment: Electronically Signed By: Kenna Clark PA-C\.br\Date and Time Signed: 04/25/23 00:01 EST\.br\Electronically Co-Signed By: Lance Cortes DO\.br\Date and Time Co- Signed: 04/27/23 08:57 ESTXR Hip 2-3 Views Left + Pelvison 99-71-5462ZR Hip 2-3 Views Left + PelvisExam Date/Time: 04/24/2023 18:20 EST Reason for Exam: [...] DARRIN Technologist: LUX Technical Comments Radiation Dose: Kar in mGy = na DAP = naNormalTrihealth Bethesda Butler HospitalConsent for Treatmenton 04-24-2023 Consent for [id number]#1.00TIFCleveland Clinic Fairview HospitalDischarge Instructionson 98-17-3274Xamajfgms [id number]#1.00TIFFMercy Health Kings Mills Hospital Clinical Summaryon 86-79-5851VT Clinical Summary [place] [id number] ED Clinical Summary Person Information Name: FLORES HOUSER [facility] Age: 37 Years : 1985 Sex: Female Language: Anguillan PCP: DOMO REIS DO Marital Status: Single [...] 04/24/2023 19:25:21 04/24/2023 19:25:21 04/24/2023 19:25:21 ADDRESS: [address] [phone] PHYS DOC NOTES: MEDICAL INFORMATION: Prescriptions Given: New Medications [facility], [address] [place], [place] [id number], [phone] cyclobenzaprine (cyclobenzaprine 10 mg Tab) 1 Tablets [...] up: With: Address: When: Juan [address] [place] [id number] Business (1) In 3 days 04/27/2023 With: Address: When: DOMO REIS [address] [place], [place] [address] [facility] (1) In 3 days DIAGNOSIS: 1:Repetitive strain injury of left hip; Overexertion from repetitive movements, initial encounterNoClaudio Arredondo Medical CenterED Patient Education Noteon 08-15-9588LR Patient Education NoteOrthopedics Hip Pain The hip is the joint [...] that cause pain. General instructions ? Take xxld-vzl-duoctvh and prescription medicines only as told by [...] provider. Document Revised: 07/21/2019 Document Reviewed: 07/21/2019 [employer] Patient Education ? 2022 [employer] Hip Exercises Ask your health care provider [...] by your health care provider. Stretching and yuhpl-ft-cvrgms exercises These exercises warm up your muscles and joints and improve the movement and flexibility of your hip. These exercises also help to relieve pain, numbness, and tingling. You may be asked to limit yourrange of motion if you had a hip [...] Seated stretch (Inserted Image. (more content not included)...[facility] ED Patient Summaryon 51-56-7327TS Patient Summary [place] [id number] Patient Discharge Instructions Person Information Name: FLORES HOUSER Age: 37 Years Arrival Date: 04/24/2023 16:53:59 Discharge Diagnosis: 1:Repetitive strain injury of left hip; Overexertion from repetitive movements, initial encounter Primary Care Physician: DOMO REIS DO Provider Information Primary Provider: Lance Cortes DO Advanced Automatic Lump Making Machine Tender:None The exam and treatment you received in the Emergency Department were for an urgent problem and are not intended as complete care. It is important that you follow up with a doctor, nurse practitioner,or physician?s microbiology lab assistant for ongoing care. If your symptoms [...] Instructions: With: Address: When: [address] [place] [address] [facility] (1) In 3 days 04/27/2023 With: Address: When: DOMO SMILEY [address] [place], [place] [id number] [facility] (1) In 3 days In the event [...] opioids can be used to help relieve oialydbq-kg-mtlzhb pain and are often prescribed following a [...] and have fewer risks and side effects. Optionsmay include: ? Pain relievers such as acetaminophen, [...] unused prescription opioids: Find your community drug take- back program or yourpharmacy mail-back program, or flush them down the toilet, following guidance from the Food and Drug Administration (www.fda.gov/Drugs/ResourcesForYou). ? Visit www.cdc.gov/drugoverdose to learn abou (more content not included)... Berger HospitalCalculus Analysison 75-01-3586Xhgbknn oxalate monohydrate (Stone) [Mass fraction]60 %Invalid Interpretation [facility] Medical CenterComment on above:Performed By: #### [id number] ####[facility] [address] [place], [place] [address]Sirbxfwr analysis [Interp]CommentInvalid Interpretation [facility] Medical CenterComment on above:Result Comment: Calcium phosphate (hydroxyl form) includes hydroxyapatite, amorphous calcium phosphate, and whitlockite. Hydroxyapatite is the most common of the calcium phosphate salts found in human kidney stones.Performed By: #### [id number] ####[facility] [address] [place], [place] [address]Loxrg (Stone)TanInvalid Interpretation [facility] Medical CenterComment on above:Performed By: #### [id number] ####[place] [address] [place], [place] [address]UdhhnwefatvQjvmeqcXcgrftv Interpretation [facility] Medical CenterComment on above:Result Comment: Percentage (Represents the % composition) Performed By: #### [id number] ####[address] [address]Aoyxkkmkhz:CommentInvalid Interpretation [facility] Medical CenterComment on above:Result Comment: This test was developed and its performance characteristics determined by [facility]. It has not been cleared or approved by the Food and Drug Administration. Performed at: [address] [id number] PhD Shamar Jonesformed By: #### [id number] ####[place] [address] [place], [place] [address]Zfercpmonmgdgy:40 % Invalid Interpretation [facility] Medical CenterComment on above:Performed By: #### [id number] ####[place] [address] [place], [place] [address]Ubqhzcalwt comment [place]rbano (Report)CommentInvalid Interpretation [facility] Medical CenterComment on above:Result Comment: Physician questions regarding Calculi Analysis contact [facility] at: [phone].Performed By: #### [id number] ####[address] [place], [place] [address]Ajnmrr Note:CommentInvalid Interpretation [facility]lyria Medical CenterComment on above:Result Comment: Calculi report will follow via computer, mail or reading assistant delivery.Performed By: #### [id number] ####[address] [place], [place] [address]Iejd (Stone) [Entitic vol]3n1Wmffygb Interpretation [facility] Medical CenterComment on above:Result Comment: Multiple pieces received. Dimensions of the largest piece reported.Performed By: #### [id number] ####[address] [place], [place] [address]Qhwjqcsp source subject NomComment Invalid Interpretation [facility] Medical CenterComment on above:Result Comment: Not providedPerformed By: #### [id number] ####[place] [address]Vzuqj PhotoCommentInvalid Interpretation [facility] Medical CenterComment on above:Result Comment: Photograph will follow under a separate coverPerformed By: #### [id number] ####[address] [address] Weight (Stone)6 mgInvalid Interpretation [facility] Medical CenterComment on above:Performed By: #### [id number] ####[address] [address]Rgo Reportson 41-75-7047Oho Reports [id number]#1.00TIFOhio State Harding HospitalOperative Reporton 98-33-2295Uxrhnkluy Report [id number]#1.00TIFOhio State Harding HospitalRAD - MISCon 78-42-8588BQQ - MISC [id number]#1.00TIFFBerger HospitalECG 12-Leadon 98-65-5172KHV 12-Lead [id number]#1.00TIFFBerger HospitalLab Reportson 88-55-1440Fep Reports [id number]#1.00TIFOhio State Harding HospitalConsent for Procedure/Surgeryon 59-66-3896Wsggbki for Procedure/Surgery [id number]#1.00TIFKarson Mercy Medical CenterPatient Educationon 18-14-1172Uuqeafh EducationNephrology Lithotripsy Lithotripsy is a treatment that can help break up kidney stones that are too large to pass on theirown. This is a nonsurgical procedure that crushes a kidney stone with shock waves. These shock waves pass through your body and focus on the kidney stone. They cause the kidney stone to break up intosmaller pieces while it is still in the urinary tract. The smaller pieces of stone can pass more easily out of your body in the urine. Tell a health care provider about: ? Any allergies you have. ? All medicines you are taking, including vitamins, herbs, eye drops, creams, and zyak-xur-euumxqn medicines. ? Any problems you or family [...] tells you to take them. ? Taking erxh-jab-hvgwwbw medicines, vitamins, herbs, and supplements. Tests You [...] you may feel a tapping sensation as theshock waves pass through your body. ? A [...] it is safe. Summary (more content not included)...NormalCentral Carolina Hospitaler Mercy Medical CenterUS Renalon [id number] RenalExam Date/Time: 02/14/2023 17:12 EST Reason for Exam: [...] Dao Hardin MD Transcribed by: DARRIN Technologist: LiamSelect Medical Specialty Hospital - YoungstownConsent for Treatmenton 71-26-5186Ahlceev for Treatment [id number]#1.00TIFOhio State Harding HospitalRAD - MISCon 91-63-3972TQW - MISC [id number]#1.00TIFOhio State Harding HospitalPatient Educationon 53-90-7045Ycfpzyh EducationNephrology Dietary Guidelines to Help Prevent Kidney Stones [...] ? 8 oz (237 mL) of milk, hkteyxq-mzjonbprhrkf-dooyb milk, and calcium- fortifiedfruit juice. Calcium-fortified means [...] portion sizes. For most meat and fish, oneserving is about the size of the palm [...] Spinach (cooked), rhubarb, beets, sweet potatoes, and Niuean chard. ? Peanuts. ? Potato chips, yi fries, and baked potatoes with skin on. ? Nuts and nut products. ? Chocolate. ? If you regularly take a diuretic medicine, make sure to eat at least 1 or 2 servings of fruits orvegetables that are high in potassium each day. These include: ? Avocado. ? Banana. ? [place], prune, carrot, or tomato juice. ? Baked [...] with your dietitian to find an eating planand weight loss strategies that work best for [...] fish oil, or vitamin B6. ? Take ubqd-ufp-zpthppf and prescription medicines only as told by your health care provider. Theseinclude supplements. What foods should I limit? Limit your in (more content not included)...[facility] Office/Clinic Noteon 43-25-0373Luxlgdh Office/Clinic NoteChief Complaint 6m KUB/KEKE HPI Staff PRW pt [...] kidney measuring 0.7 cm, along with tiny punctatenonobstructing left renal calculi. KUB 01/27/22 [facility] - [...] of stones provided and unable to access [facility] imaging on computer today to view images independently so unable to indicate if stones remain stable in size. Webriefly discussed lithotripsy options like ESWL vs laser [...] and neph tube placement by urologist in [facility] 2015 3. Personal history of urethral stricture (Z87.448: Personal history of other diseases of urinary system) S/p Cysto/Urethral Dilation/R RGP/R stent placement 10/26/[address] Fierro. Ordered: Urnls Dip Stick Auto w/o Microscopy POC 90874 4. Chronic cystitis (N30.20: Other chronic cystitis without hematuria) UA today negative for infection, trace-intact blood. Denies any infections since last encounter. Follow-up With When Contact Information FLORES CAMPBELL PA-C, URL [address] [place] [address] [phone] Additional Instructions: will call pt Patient Education Dietary Guidelines to Help Prevent Kidney Stones Documentation recorded by the scribcarlos Putnam accurately reflects the services(s) I performed anddecisions made by me. Authenticated by Flores Campbell [...] concerns: No. Yes, 01/23 (more content not included)...[facility]ger HospitalComment on above: Result Comment: Electronically Signed By: FLORES CAMPBELL PA-C\.br\Date and Time Signed: 01/23/2315:40 EST\.br\Electronically Co-Signed By: Samantha Putnam\.br\Date and Time Co-Signed: 01/23/23 15:32 ESTRAD - MISCon 90-13-3659MIT - [id number]#1.00[facility] HospitalPhysician Orderon 08-28-1697Bsjgxikwt Order [id number]#1.00TIFOhio State Harding HospitalAFP MATERNAL FOR SPINA BIFIDAon 66-16-6030KBJ MoM0.59[facility] Boardman HospitalComment on above:Performed By: #### MAG24 #### [facility] [address] [place] [address] Dr. Anthony Sanz Value27.0 ng/mLNormalPremier HealthComment on above: Performed By: #### MAG24 #### [facility] [address] [place] [address] Dr. Anthony Sanz, Serum for Spina BifidaReportMercy Health St. Elizabeth [facility] Hospital Comment on above:Performed By: #### MAG24 #### [facility] [address] [place] [address] Dr. Anthony PandaCleveland Clinic Marymount HospitalComment on above:Result Comment: Nessa Alatorre, Ph.D., [facility] Director . References: Available Upon Request. . Multiples Of Median Cutoffs For AFP Elevations Rodríguez 2.5 Black 2.8 IDD 2.0 Twins 4.5 Abbreviation Definitions IDD - Insulin Dep Diabetes OSBR - Open Spina Bifida Risk . For further inquiries contact [employer] [facility] at [phone]. . This test was developed and its performance characteristics determined by [employer]. It has not been cleared or approved by the Food and Drug Administration.Performed By: #### MAG24 #### [facility] [address] [place] [address] Dr. Anthony Moreno Age Collection Date20.[address] [facility] Comment on above:Performed By: #### MAG24 #### [facility] [address] [place] [address] Dr. Anthony Orellana, Age Based onLMPNCleveland Clinic South Pointe HospitalComment on above:Result Comment: Recalculations are not recommended when gestational dating by LMP and ultrasound are within 10 days.Performed By: #### MAG24 #### [facility] [address] [place] [address] Dr. Anthony OneillInsulin Dep DiabetesNoNCleveland Clinic South Pointe HospitalComment on above:Performed By: #### MAG24 #### [facility] [address] [place] [address] Dr. Anthony OneillInterpretationCommentAvita Health System on above: Result Comment: Interpretation: Screen Negative . This result is screen [...] Customer Services to discuss available options. The [employer] recommends amniocentesis be offered to women age 35 and older.Performed By: #### MAG24 #### [facility] [address] [place] [address] Dr. Anthony OneillMaternaagustin Age at EDD36.1 yrAvita Health System on above:Performed By: #### MAG24 #### [facility] [address] [place] [address] Dr. Anthony Giffordltiplcarlos GestationNoNCleveland Clinic South Pointe HospitalComscheurer hospital on above: Performed By: #### MAG24 #### [facility] [address] [place] [address] Dr. Anthony OneillOSBR Risk 1 [id number] Health System on above: Performed By: #### MAG24 #### [facility] [address] [place] [address] Dr. Anthony OneillPDF.NormalPremier HealthComscheurer hospital on above:Performed By: #### MAG24 #### [facility] [address] [place] [address] Dr. Anthony AugustinCaucasianNKnox Community Hospital on above: Performed By: #### MAG24 #### [facility] [address] [place] [address] Dr. Anthony Harrington Results:NegativeAvita Health System on above: Performed By: #### MAG24 #### [facility] [address] [place] [address] Dr. Anthony Vargas ACOG PANEL 2: 30 to 65on 07-12-2022..NormalPremier HealthComscheurer hospital on above:Result Comment: Performed at: WBPerformed By: #### MAG24 #### [facility] [address] [place] [address] Dr. Anthony Martinez Gdln ACOG Koyrwgc98-76DqckkcMatKettering Health Main CampusComscheurer hospital on above:Performed By: #### MAG24 #### [facility] [address] [place] [address] Dr. Anthony OneillDIAGNOSIS:CommentAvita Health System on above: Result Comment: NEGATIVE FOR INTRAEPITHELIAL LESION OR MALIGNANCY. Performed at: WBPerformed By: #### MAG24 #### [facility] [address] [place] [address] Dr. Anthony Bassett AptimaNegativeNormalNegativePremier HealthComscheurer hospital on above:Result Comment: This nucleic acid amplification test detects fourteen high-risk HPV types (16,18,31,33,35,39,45,51,52,56,58,59,66,68) without differentiation. Performed at: =GPerformed By: #### MAG24 #### [facility] [address] [place] [address] Dr. Anthony OneillHPKaiden Genotype ReflexCommentAvita Health System on above:Result Comment: Criteria not met, HPV Genotype not performed. Performed at: WBPerformed By: #### MAG24 #### [facility] [address] [place] [address] Dr. Anthony OneillMethodology:CommentMercy Health St. Elizabeth Boardman HospitalComscheurer hospital on above: Result Comment: This liquid based ThinPrep(R) pap test was screened with the use of an image guided system. Performed at: WBPerformed By: #### MAG24 #### [facility] [address] [place] [address] Dr. Anthony OneillNote:CommentAvita Health System on above:Result Comment: The Pap smear is a screening test designed to aid in the detection of premalignant and malignant conditions of the uterine cervix. It is not a diagnostic procedure and should not be used as the sole means of detecting cervical cancer. Both false-positive and false-negative reports do occur. . Performed at: WBPerformed By: #### MAG24 #### [facility] [address] [place] [address] Dr. Anthony Chavarriaformed by:CommentAvita Health System on above: Result Comment: Elizabeth Garcia, Hearse Driver Performed at: WBPerformed By: #### MAG24 #### [facility] [address] [place] [address] Dr. Anthony Grant adequacy:[facility] on above:Result Comment: Satisfactory for evaluation. No endocervical component is identified. Performed at: WBPerformed By: #### MAG24 #### [facility] [address] [place] [address] Dr. Anthony OneillCHLAMYDIA/GONOCOCCUS LYLA (SWAB/URINE/PAPon 84-64-9982Aaeegjvlb trachomatis, NAANegativeNormalNegativePremier HealthComscheurer hospital on above: Performed By: #### HCVPCRR #### [facility] [address] [place] [address] Dr. Anthony Milesisseria gonorrhoeae, NAANegativeNormalNegativePremier HealthComscheurer hospital on above:Performed By: #### HCVPCRR #### [facility] [address] [place] [address] Dr. Anthony Flores C VIRUS AB W/ REFLEX QUANTon 95-29-0995LGJ ABReactive AbnormalNon ReactivePremier HealthComment on above:Performed By: #### HCVPCRR #### [facility] [address] [place] [address] Dr. Anthony OneillHCKaiden jsd97DmcbujIkbMercy Health St. Elizabeth Boardman HospitalComment on above:Performed By: #### HCVPCRR #### [facility] [address] [place] [address] Dr. Anthony Sheikh C QuantitationNot detectedMercy Health St. Elizabeth Boardman HospitalComment on above:Performed By: #### HCVPCRR #### [facility] [address] [place] [address] Dr. Anthony OneillInterpretationCommentNoAdena Fayette Medical Center on above: Result Comment: Positive HCV antibody screen without the presence of HCV RNA is consistent with a resolved past infection or a false positive HCV antibody. Consider repeat testing after one month.Performed By: #### HCVPCRR #### [facility] [address] [place] [address] Dr. Anthony OneillTest Information:CommentAvita Health System on above:Result Comment: The quantitative range of this assay is 15 IU/mL to 100 million IU/mL.Performed By: #### HCVPCRR #### [address] [address] [address] Anthony OneillHEP B SURFACE ANTIGEN SCREENon 79-23-1081LZtEe ScreenNegative NormalNegativeThe [facility] on above:Performed By: #### HCVPCRR #### [facility] [address] [place] [address] Dr. Anthony OneillHIV 1 AND 2 WITH REFLEXon 77-40-5235GWK Screen 4th Generation wRfxNon-ReactiveNormalNon ReactiveThe [facility] on above:Result Comment: HIV Negative HIV-1/HIV-2 antibodies and HIV-1 p24 antigen were NOT detected. There is no laboratory evidence of HIV infection.Performed By: #### MAG24 #### [facility] [address] [place] [address] Dr. Anthony OneillRPR QUANTon 91-38-3632Rqolv Plasma Reagin, QuantNon-Reactive NormalNonRea<1:1The [facility] on above:Result Comment: Please Note: This test does not meet current guidelines for screening and diagnosis of syphilis. This test is intended for following treatment response in patients being treated for syphilis infection. To screen for syphilis infection, a reflex cascade that includes both RPR and a treponema-specific assay should be utilized, such as Treponema pallidum (Syphilis) Screening [place] (060668) or Rapid Plasma Reagin (RPR) Test With Reflex to Quantitative RPR and Confirmatory Treponema pallidum Antibodies (404374).Performed By: #### RPRQ #### [facility] [address] [place] [address] Dr. Anthony Edmond AB IGGon 61-79-6339Gngcmej Antibodies, IgG8.79 index NormalImmune >0.99The [facility] Medical CenterComment on above:Result Comment: Non- immune <0.90 Equivocal 0.90 - 0.99 Immune >0.99Performed By: #### WSSZ24T, NA24U #### [facility] [address] [place] [address] Dr. Anthony OneillBOX TEST SENT OUTon 65-78-9467OIUL TO REF LAB05/29/2022NoKettering Health Main CampusComment on above:Performed By: #### MAG24 #### [facility] [address] [place] [address] Dr. Anthony WaldenC AUTO DIFFon 64-60-4269AZJR #0.0 103/ulNormal0.0-0.1Premier HealthComment on above:Performed By: #### HCVPCRR #### [facility] [address] [place] [address] Dr. Anthony Ramossophils/100 WBC (Bld)0.4 %Normal0.2-2.0Prem[facility] Health Comment on above:Performed By: #### HCVPCRR #### [facility] [address] [place] [address] Dr. Anthony Overton #0.1 103/ulNormal0.0-0.7The [facility] CenterComscheurer hospital on above: Performed By: #### HCVPCRR #### [facility] [address] [place] [address] Dr. Anthony Gandaraosinophils/100 WBC (Bld)0.7 %Critically low0.9-7.0The [facility] Medical CenterComment on above:Performed By: #### HCVPCRR #### [facility] [address] [place] [address] Dr. Yilan ChangErythrocyte distribution width (RBC) [Ratio]14.3 %Fanqny21.0-15.0 The [facility] CenterComment on above:Performed By: #### HCVPCRR #### [facility] [address] [place] [address] Dr. Anthony OneillHematocrit (Bld) [Volume fraction]37.5 %Rqrbmg94.0-48.0The [facility] CenterComment on above:Performed By: #### HCVPCRR #### [facility] [address] [place] [address] Dr. Anthony OneillHemoglobin (Bld) [Mass/Vol]12.4 g/lVLqcyfr37.0-16.0The [facility] CenterComment on above:Performed By: #### HCVPCRR #### [facility] [address] [place] [address] Dr. Anthony OneillIG #0.03 10e3/ulNormal0.00-0.03The [facility] CenterComscheurer hospital on above:Performed By: #### HCVPCRR #### [facility] [address] [place] [address] Dr. Anthony Steve %0.3 %Normal0.0-0.5The [facility] Medical CenterComment on above: Performed By: #### HCVPCRR #### [facility] [address] [place] [address] Dr. Anthony LiMPH #2.9 103/ulNormal1.2-3.8The [facility] CenterComscheurer hospital on above:Performed By: #### HCVPCRR #### [facility] [address] [place] [address] Dr. Anthony Limphocytes/100 WBC (Bld)31.9 %Smmsog78.5-60.0The [facility] CenterComscheurer hospital on above:Performed By: #### HCVPCRR #### [facility] [address] [place] [address] Dr. Anthony OneillMANUAL DIFF REQNONormalThe [facility] CenterComment on above: Performed By: #### HCVPCRR #### [facility] [address] [place] [address] Dr. Anthony Sanches (RBC) [Entitic mass]28.9 ftGsefiw05.7-34.0The [facility] CenterComment on above:Performed By: #### HCVPCRR #### [facility] [address] [place] [address] Dr. Anthony Sanches (RBC) [Mass/Vol]33.1 g/aWVcvxer60.9-35.2The [facility] HospitalComment on above:Performed By: #### HCVPCRR #### [facility] [address] [place] [address] Dr. Anthony Sanches (RBC) [Entitic vol]87.4 oFCficbg25.0-99.0The [facility] CenterComment on above:Performed By: #### HCVPCRR #### [facility] [address] [place] [address] Dr. Anthony Jones #0.5 103/ulNormal0.3-0.8The [facility] Medical CenterComment on above:Performed By: #### HCVPCRR #### [facility] [address] [place] [address] Dr. Anthony Floresocytes/100 WBC (Bld)5.4 %Normal1.7-12.0The [facility] Comment on above:Performed By: #### HCVPCRR #### [facility] [address] [place] [address] Dr. Anthony Killian #5.6 103/ulNormal1.4-6.5The [facility] Medical CenterComment on above:Performed By: #### HCVPCRR #### [facility] [address] [place] [address] Dr. Anthony Milesutrophils/100 WBC (Bld)61.3 %Ylgyld96.0-75.0The [facility] Medical CenterComment on above:Performed By: #### HCVPCRR #### [facility] [address] [place] [address] Dr. Anthony Rojolet mean volume (Bld) [Entitic vol]10.6 fLNormal9.5-13.5The [facility] HospitalComment on above:Performed By: #### HCVPCRR #### [facility] [address] [place] [address] Dr. Anthony OneillPLT305 103/spOytzva356-297Axo [facility] Medical CenterComment on above: Performed By: #### HCVPCRR #### [facility] [address] [place] [address] Dr. Anthony OneillRBC4.29 106/ulNormal4.20-5.40The [facility] HospitalComment on above:Performed By: #### HCVPCRR #### [facility] [address] [place] [address] Dr. Anthony OneillWBC9.1 103/ulNormal4.0-11.0The [facility] Medical CenterComment on above: Performed By: #### HCVPCRR #### [facility] [address] [place] [address] Dr. Anthony Anaya URINEon 90-33-8304PILVSWR URINECulture Observations: LIGHT GROWTH OF MIXED GENITAL BRITNI. NO POTENTIAL PATHOGENS SEEN.NormalThe [facility] Medical CenterComment on above:Performed By: #### HCVPCRR #### [facility] [address] [place] [address] Dr. Anthony Chris SCREEN RAPID (URINE)on 17-90-6595GWJMwoddmcuXexdqtUXYEBXAJ The [facility] CenterComment on above:Performed By: #### OIMD03B, NA24U #### [facility] [address] [place] [address] Dr. Anthony FuentesNegativeNormalNEGATIVEPremier HealthComment on above: Performed By: #### [id number], NA24U #### [facility] [address] [place] [address] Dr. Anthony SowPNegativeNormalNEGATIVEThe [facility] Medical CenterComment on above: Performed By: #### [id number], NA24U #### [facility] [address] [place] [address] Dr. Yilan ChangBZONegativeNormalNEGATIVEPremier HealthComment on above: Performed By: #### TQGG51E, NA24U #### [facility] [address] [place] [address] Dr. Anthony OneillCOCNegativeNormalNEGATIVEOur Lady of Mercy Hospitalment on above: Performed By: #### OJWN89C, NA24U #### [facility] [address] [place] [address] Dr. Anthony EvansAvita Health SystemComment on above: Result Comment: AMP (Amphetamine): 500ng/mL, BAR (Barbituates): 200 ng/mL, BZO (Benzodiazepines): 150 ng/mL, BUP (Buprenorphine): 10 ng/mL, ISABELLA (Cocaine): 150 ng/mL, mAMP (Methamphetamine): 500 ng/mL, MTD (Methadone): 200 ng/mL, OPI (Opiates): 100 ng/mL, OXY (Oxycodone): 100 ng/mL, PCP (Phencyclidine): 25 ng/mL, PPX (Propoxyphene): 300 ng/mL, THC (Cannabinoids): 50 ng/mL, TCA (Trycyclic Antidepressants): 300 ng/mLPerformed By: #### RITT36U, NA24U #### [facility] [address] [place] [address] Dr. Anthony OneillDRUG CUT HEADERDRUG CLASS TEST SYSTEM CUT-OFF CONCENTRATIONS ARE FOLLOWS:NormalThe [facility] Medical CenterComment on above:Performed By: #### [id number], NA24U #### [facility] [address] [place] [address] Dr. Anthony OneillmAMPNegativeNormalNEGATIVEPremier HealthComscheurer hospital on above: Performed By: #### NQNO09I, NA24U #### [facility] [address] [place] [address] Dr. Anthony OneillMTDNegativeHollandNEGOhioHealth Hardin Memorial HospitalComment on above: Performed By: #### XAPX61V, NA24U #### [facility] [address] [place] [address] Dr. Anthony OneillOPINegativeNormalNEGOhioHealth Hardin Memorial HospitalComment on above: Performed By: #### GCGO36B, NA24U #### [facility] [address] [place] [address] Dr. Anthony OneillOXYNegativeNormalNEGOhioHealth Hardin Memorial HospitalComscheurer hospital on above: Performed By: #### YNHR80S, NA24U #### [facility] [address] [place] [address] Dr. Anthony OneillPCPNegativeNormalNEGOhioHealth Hardin Memorial HospitalComscheurer hospital on above: Performed By: #### JTUB10H, NA24U #### [facility] [address] [place] [address] Dr. Anthony OneillPPXNegativeNormalNEGOhioHealth Hardin Memorial HospitalComscheurer hospital on above: Performed By: #### ABGR16C, NA24U #### [facility] [address] [place] [address] Dr. Anthony OneillTCANegativeNormalNEGOhioHealth Hardin Memorial HospitalComscheurer hospital on above: Performed By: #### KFBI08F, NA24U #### [facility] [address] [place] [address] Dr. Anthony OneillTHCNegativeNormalNEGOhioHealth Hardin Memorial HospitalComscheurer hospital on above: Performed By: #### JILI54Q, NA24U #### [facility] [address] [place] [address] Dr. Anthony OneillGLYCOHEMOGLOBIN A1Con 27-58-1965IPQ RECOMMENDATIONSEE BELOWNormKettering Health PrebleComscheurer hospital on above:Result Comment: ADA RECOMMENDED LIMIT 4.0 - 6.0 ADA THERAPEUTIC TARGET < 7.0 ACTION SUGGESTED > 7.0Performed By: #### MAG24 #### [facility] [address] [place] [address] Dr. Anthony OneillGlucose [Mass/Vol]114 mg/dLNoKettering Health Main CampusComscheurer hospital on above:Performed By: #### MAG24 #### [facility] [address] [address] [address] Anthony OneillHbA1c (Bld) [Mass fraction]5.6 %Normal4.5-6.2The [facility] Medical CenterComment on above:Performed By: #### MAG24 #### [facility] [address] [place] [address] Dr. Anthony OneillTYPE AND SCREENon 05-26-3198QLON AND SCREENNegativeNoKettering Health Main CampusComment on above:Performed By: #### HCVPCRR #### [facility] [address] [place] [address] Dr. Anthony OneillUS PREG TVon 24-31-4709WT PREG TVEXAMINATION: US PREG TV HISTORY: Missed period COMPARISON: [...] Electronically authenticated by: PHILLIP GUAN Date: 2022-05-29 21:20NoKettering Health Main CampusOXALATE 24HR URINEon 94-82-4468Sfehwmgs, Urine17 mg/LNormal UndefinedThe [facility] CenterComment on above:Performed By: #### MATY86V, NA24U #### [facility] [address] [place], [place] [id number] Dr. Anthony OneillOxalates, Urine 24hr19 mg/24 hrNormal4-[facility] Comment on above:Performed By: #### TCAU39W, NA24U #### [facility] [address] [place], [place] [address] Dr. Anthony OneillCITRATE URINE 24HRon 89-18-9050Tuwsvq Acid, U, 22ua997 mg/24 hr Afocpi216-6149Zsl [facility] on above:Result Comment: This test was developed and its performance characteristics determined by [employer]. It has not been cleared or approved by the Food and Drug Administration.Performed By: #### MAG24 #### [facility] [address] [place] [address] Dr. Anthony OneillCitric Acid, Dxhyl004 mg/LNormalUndefinedThe [facility] Comment on above:Performed By: #### MAG24 #### [facility] [address] [place] [address] Dr. Anthony OneillMAGNESIUM 24HR URINEon 25-36-1530Sbcspjbjs 24hr Urine85.8 mg/24 cnCvvcha00.0-293.0The [facility] on above:Performed By: #### HCVPCRR #### [facility] [address] [place] [address] Dr. Anthony OneillMagnesium UR7.8 mg/dLNormalNot Estab.The [facility] on above:Performed By: #### HCVPCRR #### [facility] [address] [place] [address] Dr. Anthony OneillPHOSPHORUS 24HR URINEon 27-26-2011Vwszxvvxzv, Urine57.0 mg/dL NormalNot Estab.The [facility] on above:Performed By: #### PHOS 24 #### [facility] [address] [place] [address] Dr. Anthony OneillPhosphorus, Urine 72yc961 mg/24 zwUsbjiy745-4738Tkn [facility] Hospitalment on above:Performed By: #### PHOS 24 #### [facility] [address] [place] [address] Dr. Anthony OneillPTH INTACTon 62-64-5416ZGJ, Xntjqc57 pg/fUXimnes34-61Bxm [facility] on above:Performed By: #### MAG24 #### [facility] [address] [place] [address] Dr. Anthony OneillURIC ACID 24 HR URINEon 88-65-1614Whrd Acid, Urine39.7 mg/dL NormalNot Estab.The Jocelin HospitalComment on above:Performed By: #### RPRQ #### [facility] [address] [place] [address] Dr. Anthony OneillUric Acid, Urine 17qz522.7 mg/24 kaDpplfo889.7-902.1Premier HealthComment on above:Performed By: #### RPRQ #### [facility] [address] [place] [address] Dr. Anthony OneillCALCIUM 24 HR URINEon 41-96-3963DGAY, 24 HR UR309.1 mg/24 hr Critically xbuk479.0-300.0The [facility] CenterComment on above:Performed By: #### BFHX50X, NA24U #### [facility] [address] [place] [address] Dr. Anthony OneillUR JWDJRBV97.1 mg/dLCritically high5.1-21.0[facility] Comment on above:Performed By: #### OABD57P, NA24U #### [facility] [address] [place] [address] Dr. Anthony OneillCREA 24 HR URINEon 44-32-6134GTHA, 24 HR UR902.66 mg/24 hrNormal 800.00-1,800.00The [facility] CenterComment on above:Performed By: #### HCVPCRR #### [facility] [address] [place] [address] Dr. Anthony OneillURINE CREAT82.06 mg/eTMbxvzj04.00-300.00The [facility] Comment on above:Performed By: #### HCVPCRR #### [facility] [address] [place] [address] Dr. Cruz ChangELECTROLYTESon 75-81-4353Dixzz gap [Moles/Vol]13.3 mmol/LNormal The [facility] CenterComment on above:Performed By: #### ELEC #### [facility] [address] [place] [address] Dr. Anthony OneillChloride [Moles/Vol]101 mmol/TSlfflc84-025Npg [facility] Comment on above:Performed By: #### ELEC #### [facility] [address] [address] [address] Anthony OneillCO2 [Moles/Vol]25.1 mmol/GVhhcqp59.0-32.0The [facility] Comment on above:Performed By: #### ELEC #### [facility] [address] [place] [address] Dr. Anthony OneillPotassium [Moles/Vol]3.4 mmol/LCritically low3.5-5.1The [facility] CenterComment on above:Performed By: #### ELEC #### [facility] [address] [place] [address] Dr. Anthony Bergerdium [Moles/Vol]136 mmol/DCqymet300-555Dup [facility] Comment on above:Performed By: #### ELEC #### [facility] [address] [place] [address] Dr. Anthony Tobias 24 HR URINEon 73-74-8292OV, 24 HR UR133 mmol/24 hrNormal 40-220The [facility] CenterComment on above:Performed By: #### HCVPCRR #### [facility] [address] [place] [address] Dr. Anthony Tobias (U) [Moles/Vol]121 mmol/LCritically ksrd38-74Rjc [facility] CenterComment on above:Performed By: #### HCVPCRR #### [facility] [address] [place] [address] Dr. Anthony Liu TOT FPX9739 ml/24 HRNormalThe [facility] CenterComment on above:Performed By: #### HCVPCRR #### [facility] [address] [place] [address] Dr. Anthony OneillPerformed By: #### YPRV32Y, NA24U #### [facility] [address] [place] [address] Dr. Anthony OneillHEMATOLOGYOrdered By: Nancy Bustamante on 71-87-7282Yna Rate Jahrubbxw52 mm/hNormal0 - 34 mm/hrSAINT FRANCIS HOSPITAL [facility] HemeAutoSSSEROLOGYOrdered By: Neha Saldana on 26-76-4170WRI.beta subunit (U) [Moles/Vol]NegativeNormalSAINT FRANCIS HOSPITAL [facility] [place] Man Sero URINALYSISOrdered By: Neha Saldana on 57-26-2425Atnfvgmjh Ql (U)Negative (02/11/22 12:08 PM)NormalNegativeSAINT FRANCIS [facility] [place] UA Auto SSClarity (U)Clear (02/11/22 12:08 PM)NormalClearFTMC UA Auto SSColor (U)Yellow (02/11/22 12:08 PM)NormalYellowSAINT FRANCIS HOSPITAL – [place] UA Auto SSEpithelial cells.squamous LM.HPF (Urine sed) [#/Area]0-2 /HPFNormal0-2/HPFSAINT FRANCIS HOSPITAL – [place] UA Auto SSGlucose Test strip (U) [Mass/Vol]Negative (02/11/22 12:08 PM)NormalNegativeSAINT FRANCIS [facility] [place] UA Auto SSHemoglobin Ql (U)Negative (02/11/22 12:08 PM)NormalNegativeSAINT FRANCIS [facility] [place] U[facility] Auto SSKetones (U) [Mass/Vol]Negative (02/11/22 12:08 PM)NormalNegativeSAINT FRANCIS [facility] [place] UA Auto SSLithium.plasma/Gleason.RBC (Bld) [Mass ratio]0-3 /HPFNormal0-3/HPFSAINT FRANCIS HOSPITAL [facility] [place] UA Auto SSNitrite Ql (U)Negative (02/11/22 12:08 PM)NormalNegativeSAINT [facility]ANCIS [facility] [place] U[facility] Auto SSpH (U)7.0 *NA* (02/11/22 12:08 PM)Invalid Interpretation Code5.0 - 9.0[facility] UA Auto SSProtein (U) [Mass/Vol]Negative (02/11/22 12:08 PM)NormalNegativeSAINT FRANCIS [facility]PITAL [facility] [place] UA Auto SSSpecific gravity (U) [Rel density]1.020 *NA* (02/11/22 12:08 PM)Invalid Interpretation Code1.005 - 1.030[facility] UA Auto SSUA Spec DescClean Catch (02/11/22 12:08 PM)NormalSAINT FRANCIS [facility]OSPITAL [facility] [place] UA Auto SSUrobilinogen Qn (U)0.1094753 {Yarely'U}/dLNormal0.0 - 1.0 EU/dLSAINT FRANCIS HOSPITAL – [place] UA Auto SSWBC Auto Ql (U)Negative (02/11/22 12:08 PM)NormalNegativeSAINT FRANCIS [facility] [place] UA Auto SSWBC LM.HPF (Urine sed) [#/Area] 0-5 /HPFNormal0-5/HPFSAINT FRANCIS [facility]OSPITAL [facility] [place] UA Auto SSCITRATE URINE 24HRon 83-03-8324Gizjjx Acid, U, 58yx269 mg/24 hrCritically rzw760-5488FrsPremier HealthComment on above: Result Comment: This test was developed and its performance characteristics determined by [employer]. It has not been cleared or approved by the Food and Drug Administration.Performed By: #### MAG24 #### [facility] [address] [place] [address] Dr. Anthony OneillCitric Acid, Fexeh341 mg/LNormalUndefinedPrem[facility] Comment on above:Performed By: #### MAG24 #### [facility] [address] [place] [address] Dr. Anhtony OneillOXALATE 24HR URINEon 81-31-7123Lcvrjfxl, Urine29 mg/LNormal UndefinedThe [facility] CenterComment on above:Performed By: #### MAG24 #### [facility] [address] [place] [address] Dr. Anthony OneillOxalates, Urine 24hr12 mg/24 hrNormal4-31The [facility] Comment on above:Performed By: #### MAG24 #### [facility] [address] [place] [address] Dr. Anthony OneillMAGNESIUM 24HR URINEon 68-83-5588Diyxpvfki 24hr Urine34.4 mg/24 ybVbbhrc93.0-293.0The [facility] CenterComment on above:Performed By: #### MAG24 #### [facility] [address] [place] [address] Dr. Anthony OneillMagnesium UR8.6 mg/dLNormalNot Estab.The [facility] CenterComment on above:Performed By: #### MAG24 #### [facility] [address] [place] [address] Dr. Anthony OneillPHOSPHORUS 24HR URINEon 29-31-3915Sjgzvyfmql, Htdvk143.6 mg/dL NormalNot Estab.The [facility] CenterComment on above:Performed By: #### PHOS 24 #### [facility] [address] [place] [address] Dr. Anthony OneillPhosphorus, Urine 71xi332 mg/24 qhPruzyv457-5981Acg [facility] CenterComment on above:Performed By: #### PHOS 24 #### [facility] [address] [place] [address] Dr. Anthony OneillPTH INTACTon 79-33-9952KEK, Sqiehe15 pg/tSGwwaqe73-26Agc [facility] CenterComment on above:Performed By: #### PTHINT #### [facility] [address] [place] [address] Dr. Anthony OneillURIC ACID 24 HR URINEon 78-75-4403Vibv Acid, Urine71.0 mg/dL NormalNot Estab.The [facility] CenterComment on above:Performed By: #### URIC 24 #### [facility] [address] [place] [address] Dr. Anthony OneillUric Acid, Urine 94oj353.0 mg/24 sfPbwemt035.7-902.1The [facility] CenterComment on above:Performed By: #### URIC 24 #### [facility] [address] [place] [address] Dr. Anthony OneillXR KUB 1 VIEWon 55-07-3359SL KUB 1 VIEWEXAMINATION: XR KUB 1 VIEW HISTORY: Kidney stone COMPARISON: XR KUB 2r FINDINGS: KIDNEY/URETER - RIGHT: No visible renal or ureteral calcifications. KIDNEY/URETER - LEFT: Persistent 7 x 5 mm density projecting over inferior pole of kidney favoring a stone. PELVIS: No visible ureteral stones. BOWEL: No abnormal dilation or deviation. BONES: No acute abnormality. OTHER: Negative. No abnormal gaseous collections. IMPRESSION: 1. Grossly stable left nephrolithiasis. Electronically authenticated by: PHILLIP GUAN Date: 2022-01-28 06:20[facility] HospitalBUB[facility] 80-84-6614Rgin nitrogen [Mass/Vol]12.0 mg/dLNormal 7.0-18.0The [facility] CenterComment on above:Performed By: #### RPRQ #### [facility] [address] [place] [address] Dr. Anthony OneillCALCIUMon 34-21-8251Knfjhif [Mass/Vol]8.8 mg/dLNormal8.5-10.1The [facility] CenterComment on above:Performed By: #### RPRQ #### [facility] [address] [place] [address] Dr. Anthony LaraIUM 24 HR URINEon 31-32-5983MVHF, 24 HR UR84.0 mg/24 hr Critically ypo233.0-300.0The [facility] on above:Performed By: #### MAG24 #### [facility] [address] [place] [address] Dr. Anthony Liu LDPJLPR23.0 mg/dLNormal5.1-21.0The [facility] CenterComscheurer hospital on above:Performed By: #### MAG24 #### [facility] [address] [place] [address] Dr. Anthony OneillCHLORIDEon 31-42-6105Wlrlkndg [Moles/Vol]104 mmol/PCmleiv29-944 The [facility] CenterComscheurer hospital on above:Performed By: #### RPRQ #### [facility] [address] [place] [address] Dr. Anthony OneillCO2on 03-12-1728UG2 [Moles/Vol]25.8 mmol/JYiuour04.0-32.0The [facility] CenterComscheurer hospital on above:Performed By: #### RPRQ #### [facility] [address] [place] [address] Dr. Anthony WalkerA 24 HR URINEon 09-22-4497JXGI, 24 HR LT4928.08 mg/24 hrNormal 800.00-1,800.00The [facility] on above:Performed By: #### CGSG87V, NA24U #### [facility] [address] [place] [address] Dr. Yilan ChangUR TOT DKN942 ml/24 HRNormalThe [facility] CenterComment on above:Performed By: #### WCLM32I, NA24U #### [facility] [address] [place] [address] Dr. Anthony OneillPerformed By: #### MAG24 #### [facility] [address] [place] [address] Dr. Anthony Daniel ICERJ326.27 mg/bTZjybln74.00-300.00The [facility] Comment on above:Performed By: #### AGPX38D, NA24U #### [facility] [address] [place] [address] Dr. Anthony WalkerATININEfrancisco 18-01-1739Tixitbjteg [Mass/Vol]0.81 mg/dLNormal 0.55-1.02Premier HealthComment on above:Performed By: #### RPRQ #### [facility] [address] [place] [address] Dr. Anthony GandaraGFR-AF LIBERIAN>60Normal>=60The [facility] CenterComment on above:Performed By: #### RPRQ #### [facility] [address] [place] [address] Dr. Anthony GanadraGFR-NON AF LIBERIAN>60Normal>=60Premier HealthComment on above:Performed By: #### RPRQ #### [facility] [address] [place] [address] Dr. Anthony Cardenas 54-42-1483Acryua [Moles/Vol]135 mmol/LCritically jwc356-693 The [facility] CenterComment on above:Performed By: #### RPRQ #### [facility] [address] [place] [address] Dr. Anthony Salvador 00-56-2251Oxxbzuevg [Moles/Vol]3.6 mmol/LNormal 3.5-5.1Premier HealthComment on above:Performed By: #### RPRQ #### [facility] [address] [place] [address] Dr. Anthony Tobias 24 HR URINEon 48-42-3339MT, 24 HR UR47 mmol/24 hrNormal 40-220The [facility] CenterComment on above:Performed By: #### [id number], NA24U #### [facility] [address] [address] [address] Anthony Bergerdium (U) [Moles/Vol]118 mmol/LCritically karo91-51Kml [facility] CenterComment on above:Performed By: #### DHXI13F, NA24U #### [facility] [address] [address] [address] Anthony OneillURIC ACID SERUMon 15-65-5188Wkail [Mass/Vol]5.2 mg/dLNormal 2.6-6.0The [facility] CenterComment on above:Performed By: #### RPRQ #### [facility] [address] [address] [address] Anthony Snyder OTHER TESTSOrdered By: Juan Soria on 01-20-2022 Influenzae A AgNegative (01/20/22 10:14 AM)NormalNegativeSAINT [facility]ANC[facility] Man SeroInfluenzae B AgNegative (01/20/22 10:14 AM)NormalNegativeSAINT [facility]ANCIS [facility] Man SeroRapid COV Int NEG CtlPass (01/20/22 10:14 AM)NormalSAINT FRANCIS [facility]PITAL [facility] [place] Man SeroRapid COV Int POS CtlPass (01/20/22 10:14 AM)NormalSAINT FRANCIS [facility]OSPITAL [facility] [place] Man SeroSARS-CoV+SARS-CoV-2 (COVID-19) Ag IA.rapid Ql (Resp)Not Detected (01/20/22 10:14 AM)NormalNot DetectedSAINT FRANCIS HOSPITAL [facility] [place] Man SeroXR KUB 1 VIEWon 71-96-9384XO KUB 1 VIEWEXAMINATION: XR KUB 1 VIEW HISTORY: Kidney stone [...] Electronically authenticated by: LEIGH AGUILAR Date: 2021-12-12 19:52[facility] HospitalEROLOGYOrdered By: Agustín Noble on 37-19-8812CCP.beta subunit (U) [Moles/Vol]NegativeNormalSAINT FRANCIS [facility]OSPITAL [facility] Man SeroURINALYSISOrdered By: Agustín Noble on 27-62-9936Vtdekpzxu Ql (U)Negative (09/17/21 12:19 AM)NormalNegativeSAINT [facility]ANCIS [facility] UA Auto SSClarity (U)Clear (09/17/21 12:19 AM)NormalClearFCHICKASAW NATION MEDICAL [facility] – [place] UA Auto SSColor (U)Yellow (09/17/21 12:19 AM)NormalYellowSAINT FRANCIS HOSPITAL [facility] [place] UA Auto SSEpithelial cells.squamous LM.HPF (Urine sed) [#/Area]0-2 /HPFNormal0-2/HPFSAINT FRANCIS [facility]OSPITAL [facility] [place] UA Auto SSGlucose Test strip (U) [Mass/Vol]Negative (09/17/21 12:19 AM)NormalNegativeSAINT FRANCIS [facility] UA Auto SSHemoglobin Ql (U)Trace *ABN* (09/17/21 12:19 AM)Invalid Interpretation CodeNegativeSAINT FRANCIS [facility] UA Auto SSKetones (U) [Mass/Vol]Negative (09/17/21 12:19 AM)NormalNegativeSAINT FRANCIS [facility] UA Auto SSLithium.plasma/Gleason.RBC (Bld) [Mass ratio]0-3 /HPFNormal0-3/HPFSAINT FRANCIS HOSPITAL [facility] [place] UA Auto SSNitrite Ql (U)Negative (09/17/21 12:19 AM)NormalNegativeSAINT [facility]ANCIS [facility] Auto SSpH (U)6.0 *NA* (09/17/21 12:19 AM)Invalid Interpretation Code5.0 - 9.0[facility]A Auto SSProtein (U) [Mass/Vol]Negative (09/17/21 12:19 AM)NormalNegativeSAINT [facility]ANC[facility] UA Auto SSSpecific gravity (U) [Rel density] >=1.030 *NA* (09/17/21 12:19 AM)Invalid Interpretation Code1.005 - 1.030[facility] UA Auto SSUA Spec DescClean Catch (09/17/21 12:19 AM)NormalSAINT FRANCIS [facility]PITAL [facility] UA Auto SSUrobilinogen Qn (U)0.3607281 {Yarely'U}/dLNormal0.0 - 1.0 EU/dLFTMC UA Auto SSWBC Auto Ql (U)Negative (09/17/21 12:19 AM)NormalNegativeFTMC UA Auto SSWBC LM.HPF (Urine sed) [#/Area]0-5 /HPFNormal0-5/HPFFTMC UA Auto SSCHEMISTRYOrdered By: SYSTEM SYSTEM on 73-18-0114Mwpovxf [Mass/Vol]4.1 g/dLNormal3.3 - 5.0 gm/dLFTMC Remisol Albumin/Globulin [Mass ratio]1.1 {ratio}Normal1.1 - 2.2[facility] RemisolALP [Catalytic activity/Vol]85 [iU]/uCinwzj10 - 98 Int._Unit/LFTMC RemisolALT No additional P-5'-P [Catalytic activity/Vol]17 [iU]/dNormal6 - 46 Int._Unit/LFTMC RemisolAnion gap [Moles/Vol]12 mmol/LNormal6 - 16 mEq/LFTMC RemisolAST [Catalytic activity/Vol]19 [iU]/dNormal5 - 43 Int._Unit/LFTMC RemisolBilirubin [Mass/Vol]0.4 mg/dLNormal0.0 - 1.1 mg/dLFTMC RemisolBilirubin.direct [Mass/Vol] mg/dLNormal0.1 - 0.4 mg/dLFTMC RemisolBilirubin.indirect [Mass or moles/Vol] Unable to Calculate mg/dLInvalid Interpretation Code0.1 - 0.9 mg/dLFTMC Remisol Calcium [Mass/Vol]9.5 mg/dLNormal8.9 - 11.1 mg/dLFTMC RemisolChloride [Moles/Vol]107 mmol/OJpldit825 - 111 mmol/LFTMC RemisolCO2 [Moles/Vol]22 mmol/L Iylpyv34 - 31 mmol/LFTMC RemisolCreatinine [Mass/Vol]0.7 mg/dLNormal0.5 - 1.3 mg/dLFTMC RemisolGFR/1.73 sq M.predicted among blacks MDRD (S/P/Bld) [Vol rate/Area]mL/min/1.73 o2Djabvw>=59mL/min/1.73 m2FT[facility] Chem SGFR/1.73 sq M.predicted among non-blacks MDRD (S/P/Bld) [Vol rate/Area]mL/min/1.73 m4Poxxeo >=59mL/min/1.73 m2[facility] Chem SGlobulin (S) [Mass/Vol]3.8 g/dLNormal1.4 - 4.0 gm/dLFTMC RemisolGlucose [Mass/Vol]83 mg/qDRnubba54 - 199 mg/dLFTMC Remisol Lipase [Catalytic activity/Vol]27 U/RNwbblv17 - 58 unit/LFTMC RemisolPotassium [Moles/Vol]3.8 mmol/LNormal3.5 - 5.3 mmol/LFTMC RemisolProtein [Mass/Vol]7.9 g/dLHigh6.0 - 7.8 gm/dLFTMC RemisolSodium [Moles/Vol]137 mmol/KWblqas437 - 145 mmol/LFTMC RemisolUrea nitrogen [Mass/Vol]19 mg/dLNormal5 - 21 mg/dLFTMC Remisol Urea nitrogen/Creatinine [Mass ratio]27 mg/ddGuub71 - 20FT[facility] RemisolHEMATOLOGY Ordered By: SYSTEM SYSTEM on 37-69-9078Zvsllzpdy/100 WBC (Bld)0.8 %Normal0.0 - 2.0 %[facility] HemeAutoSSBasophils/Leukocytes Auto (Bld) [Pure # fraction]0.1 E9/L Normal0.0 - 0.2 E9/LFTMC HemeAutoSSEosinophils/100 WBC (Bld)1.5 %Normal0.0 - 8.0 %[facility] HemeAutoSSEosinophils/Leukocytes Auto (Bld) [Pure # fraction]0.2 E9/L Normal0.0 - 0.5 E9/LFTMC HemeAutoSSLymphocytes/100 WBC (Bld)34.7 %Uqopqi08.0 - 50.0 %[facility] HemeAutoSSLymphocytes/Leukocytes Auto (Bld) [Pure # fraction]3.9 E9/L Normal1.0 - 4.0 E9/LFTMC HemeAutoSSMonocytes/100 WBC (Bld)7.2 %Normal4.0 - 14.0 %[facility] HemeAutoSSMonocytes/Leukocytes Auto (Bld) [Pure # fraction]0.8 E9/LNormal 0.2 - 1.0 E9/LFTMC HemeAutoSSNeutrophils/100 WBC (Bld)55.8 %Tljmwo29.0 - 75.0 % [facility] HemeAutoSSNeutrophils/Leukocytes Auto (Bld) [Pure # fraction]6.3 E9/LNormal 2.0 - 7.5 E9/LFTMC HemeAutoSSHEMATOLOGYOrdered By: Alice Klein on 09-16-2021 Erythrocyte distribution width (RBC) [Ratio]14.8 %High10.9 - 14.2 %[facility] HemeAutoSSHematocrit (Bld) [Volume fraction]39.8 %Hdywmc22.0 - 46.0 %[facility] HemeAutoSSHemoglobin (Bld) [Mass/Vol]13.5 g/qJCtzefu51.0 - 16.0 gm/dLFTMC HemeAutoSSMCH (RBC) [Entitic mass]28.9 veCrwshr21.0 - 34.0 pgFTMC HemeAutoSSMCHC (RBC) [Mass/Vol]34.0 g/gUAlaebp34.4 - 36.0 gm/dLFTMC HemeAutoSSMCV (RBC) [Entitic vol]85.0 ySHconlj70.0 - 100.0 fLFTMC HemeAutoSSPlatelet mean volume (Bld) [Entitic vol]9.3 fLNormal6.4 - 10.8 fLFTMC HemeAutoSSPlatelets (Bld) [#/Vol]305.0 E9/TJxlnpe530.0 - 500.0 E9/LFTMC HemeAutoSSRBC (Bld) [#/Vol]4.7 E12/LNormal4.3 - 5.9 E12/LFTMC HemeAutoSSWBC corrected for nucl RBC Auto (Bld) [#/Vol]11.3 E9/LHigh4.0 - 11.0 E9/LFTMC HemeAutoSSCBC WITH DIFFERENTIALon [id number] MONO0.5 10 3/uLNormal0.2-0.6[facility] SystemComment on above:Performed By: #### [id number] ####[facility] [address] [phone] NEUT5.6 10 3/uLNormal 2.4-6.6[facility] SystemComment on above:Performed By: #### [id number] ####[facility] [address] [phone] Auto #/vol (Bld)0.0 10 3/uLNormal0.0-0.1[facility] SystemComment on above:Performed By: #### [id number] ####[employer] [address] [phone] Basophils/100 WBC Auto (Bld)0.4 %NormalGrant [facility] SystemComment on above:Performed By: #### [id number] ####[employer] [address] [phone] 10 3/uLLow0.1-0.3 [facility] SystemComment on above:Performed By: #### [id number] ####[facility] [employer] [address] 43 [phone]/100 leukocytes0.2 %[facility] System Comment on above:Performed By: #### [id number] ####[employer] System [address] [phone] distribution width Auto Ratio (RBC)13.5 %Iggypb89.5-14.5Gselect [facility] south HealthCare SystemComment on above:Performed By: #### [id number] ####[employer] [address] [phone] (RBC)4.78 x10 6/uLNormal3.60-5.20[facility] SystemComment on above:Performed By: #### [id number] ####[employer] [facility] [address] [phone] (HCT)43.0 %Rhpngp06.6-46.8[facility] SystemComment on above:Performed By: #### [id number] ####[employer] [facility] [address] [phone] mass conc (Bld)14.7 g/qESixcxa52.7-15.8[facility] SystemComment on above:Performed By: #### [id number] ####[employer] [address] [phone] 10 3/uLNormal1.2-3.3[facility] SystemComment on above:Performed By: #### [id number] ####[employer] [address] [phone] Lymphocytes/100 pztakikifo35.3 %NormalGenesis HealthCare SystemComment on above: Performed By: #### [id number] ####[employer] [address] [phone] okYvoahg67.5-32.3[facility] SystemComment on above:Performed By: #### [id number] ####[employer] [address] [phone] mass conc (RBC)34.2 g/oJCbizhj09.7-35.5[facility] SystemComment on above:Performed By: #### [id number] ####[employer] [address] [phone] oWKcvekh60.2-99.0[facility] SystemComment on above:Performed By: #### [id number] ####[employer] [facility] [address] [phone] Monocytes/100 leukocytes6.0 %NormalGrant Hospital HealthCare SystemComment on above: Performed By: #### [id number] ####[employer] System [address] [phone]/100 lmmevfwbga60.1 %Normal [facility] HospitalComment on above:Performed By: #### [id number] ####[employer] [facility] [address] 43 [phone] x10 3/aWWuusht918.0-400.0[facility] System Comment on above:Performed By: #### [id number] ####[employer] [facility] [address] [phone] (Leukocytes)8.4 x10 3/uLNormal4.3-10.3GMarshfield [facility] SystemComment on above:Performed By: #### [id number] ####[employer] System [address] [phone] 8on 01-08-1673Lcxpwoh7.7 mg/dLNormal8.4-10.4GMarshfield Medical Center Rice Lake SystemComment on above:Performed By: #### [id number] ####[employer] System [address] [phone] mmol/MApgmtq93-71BrarmyvFaith Community HospitalComment on above:Performed By: #### [id number] ####[employer] System [address] [phone] mass ocze664 mg/jTCkrv61-038Ippvunt HealthCare System Comment on above:Performed By: #### [id number] ####[employer] [facility] [address] [phone] cunkffmj68 mg/dL Normal8-20[facility] SystemComment on above:Performed By: #### [id number] ####[employer] [facility] [address] 43 [phone] mg/dLNormal0.52-1.04[facility] System Comment on above:Performed By: #### [id number] ####[employer] [facility] [address] [phone] mmol/L Upwmbs38-013Ktavfqv HealthCare SystemComment on above:Performed By: #### [id number] ####[employer] [facility] [address] [phone] molar conc3.9 mmol/LNormal3.6-5.1[facility] SystemComment on above:Performed By: #### [id number] ####[employer] [facility] [address] [phone] mmol/LNormal 135-147[facility] SystemComment on above:Performed By: #### [id number] ####[employer] [facility] [address] 43 [phone] 29-23-8800wUJH (MDRD)mL/min/{1.73_m2}NormalBlack River Memorial Hospital SystemComment on above:Result Comment: To estimate the GFR for Americans, multiply the resultprovided by 1.21.Population mean GFR = 107 ml/min/1.73 sq.m. for ages 30-39 yrsFive stages of CKD and GFR for each stage:S tage 1 GFR >=90Stage 2 GFR 60-89Stage 3 GFR 30-59Stage 4 GFR 15-29Stage 5 GFR <15 Performed By: #### GFR1 ####[facility] [employer] [address] [phone] DRUG SCREEN-7 PANELon 35-08-9145IWLDUP DETECTEDNormalCUTOFF <25[facility] SystemComment on above:Performed By: #### [id number] ####[employer] [address] 43 [phone]/BENOT DETECTEDNormalCUTOFF <300[facility] Comment on above:Performed By: #### [id number] ####[employer] [employer] [facility] [address] [phone]/THCNOT DETECTEDNormalCUTOFF <50[facility] SystemComment on above:Performed By: #### [id number] ####[employer] [facility] [address] [phone], opiates presenceNOT DETECTEDNormalCUTOFF <300[facility] SystemComment on above:Performed By: #### [id number] ####[employer] System [address] [phone] BARBITURATENOT DETECTEDNormalCUTOFF <200[facility] SystemComment on above:Performed By: #### [id number] ####[employer] System [address] [phone]/METHNOT DETECTEDNormal CUTOFF <1000[facility] SystemComment on above:Performed By: #### [id number] ####[employer] [facility] [address] [phone] DETECTEDNormalCUTOFF <200[facility] SystemComment on above:Performed By: #### [id number] ####[employer] [facility] [address] [phone] MESSAGEsee below NormalBlack River Memorial Hospital SystemComment on above:Result Comment: Notes: 1. SCREENING RESULTS SHOULD BE CONSIDERED PRESUMPTIVE UNLESS THE PRESENCE OFTHE ANALYTE HAS BEEN CONFIRMED BY A REFERENCE LAB. 2. ALL DRUG GROUPS ARE ANALYZED ON URINE.Performed By: #### [id number] ####[employer] [facility] [address] [phone] 09-50-2536MNDYHNXXT CRYSTAL1+NormalBlack River Memorial Hospital SystemComment on above:Performed By: #### [id number] ####[employer] [address] [phone] Ql (U)NegativeNormalNegativeGenesis HealthCare System Comment on above:Performed By: #### [id number] ####[facility] [address] [phone] [facility] SystemComment on above:Performed By: #### [id number] ####[facility] [address] 43 [phone]fkTolfrlmxJzqmyxu HealthCare System Comment on above:Performed By: #### [id number] ####[employer] [facility] [address] [phone]-ADMHKGmevZwxorg [facility] SystemComment on above:Performed By: #### [id number] ####[employer] [facility] [address] 43 [phone] BLOODNegativeNormalNegativeGrant Hospital HealthCare System Comment on above:Performed By: #### [id number] ####[employer] [facility] [address] [phone], appearanceCloudy NormalGrant Hospital HealthCare SystemComment on above:Performed By: #### [id number] ####[employer] [facility] [address] 43 [phone], colorYellowNormalGenesis HealthCare SystemComment on above:Performed By: #### [id number] ####[facility] [address] [phone], erythrocytes in sediment by area2 /[HPF]Normal0-5[facility] SystemComment on above:Performed By: #### [id number] ####[facility] [address] [phone], glucose presenceNegativeNormalNegativeGenesis HealthCare SystemComment on above:Performed By: #### [id number] ####[facility] [address] [phone] Urine, ketones presenceNegativeNormalNegativeGenesis HealthCare SystemComment on above:Performed By: #### [id number] ####[employer] [facility] [address] [phone], leukocytes in sedmiment6 /[HPF]High0-5[facility] SystemComment on above:Performed By: #### [id number] ####[employer] [facility] [address] [phone], nitrite presenceNegativeNormalNegativeGenesis HealthCare SystemComment on above:Performed By: #### [id number] ####[employer] [facility] [address] [phone], pH8.0 [pH]NormalGrant Hospital HealthCare SystemComment on above:Performed By: #### [id number] ####[employer] [address] 43 [phone], protein presenceNegativeNormalNegativeGenesis HealthCare SystemComment on above:Performed By: #### [id number] ####[employer] [facility] [address] [phone], specific gravity1.795Ryviga7.003-1.029[facility] SystemComment on above:Performed By: #### [id number] ####[employer] [address] [phone], urobilinogenNegativeNormal<2.0 [facility] SystemComment on above:Performed By: #### [id number] ####[employer] [facility] [address] 43 [phone] SOURCENot SpecifiedNormalGenesis HealthCare SystemComment on above:Performed By: #### [id number] ####[employer] [facility] [address] [phone] CULTUREon 79-97-9192Hnlcf culture, bacteriaNO GROWTH--PRELIMINARY REPORT. NO GROWTH--FINAL REPORT.NormalGrant Hospital HealthCare SystemComment on above:Order Comment: Site: Not SpecifiedPerformed By: #### [id number] ####[employer] [facility] [place], [place] [phone] PREG TEST on 26-82-5565NMMRY PREG TESTNegativeNormalGenesis [facility] SystemComment on above:Performed By: #### [id number] ####[employer] [facility] [place], [place] [phone] ABDOMEN 2 VIEWSon 96-89-8659DK ABDOMEN 2 VIEWSEXAMINATION:SUPINE AND UPRIGHT VIEWS OF THE ABDOMEN08/10/2017 5:58 pmCOMPARISON:None.HISTORY:allegedly swallowed a piece of metalallegedly swallowed a piece of metalFINDINGS:Moderate stool volume throughout the colon. No intestinal obstruction, freeintraperitoneal air or fluid. No pathologic distention GI tract, bowel walledema or mucosal thickening.IMPRESSION:No radiopaque metallic foreign bodies. 5 mm calcification projects in theparaspinal soft tissues which may reflect kidney stone. Abdomen pelvis CTsuggested if clinical concern of acute kidney stone.RECOMMENDATION:Moderate stool volume thr oughout the colon, 5 mm calcification projecting inleft paraspinal soft tissues. Abdomen pelvis CT suggested if clinicalconcern of acute urinary tract stone. Otherwise, radiographicallynonacute/nonspecific abdomen. No metallic foreign body projecting in thecourse the GI tract on the current study.[facility] HospitalXR CHEST PA AND LATERALon 42-86-7881JL CHEST PA AND LATERAL EXAMINATION:TWO VIEWS OF THE CHEST08/10/2017 5:59 pmCOMPARISON:None.HISTORY:allegedly swallowed a piece of metalallegedly swallowed a piece of metalFINDINGS:No radiopaque metallic foreign body seen pro jecting over the course of theesophagus or upper stomach.The lungs are without acute focal process.There is no effusion orpneumothorax. The cardiomediastinal silhouette is without acute process. Theosseous structures are without acute process.IMPRESSION:No acute process.[facility] HospitalCT Head WOon [id number] Head [facility] Name: FLORES HOUSER [address] [place] [address] Phys: [place] [address] : 1985 Age: 31 Acct: [id number] Loc: ER MRN/Unit No.: [id number] Status: REG ER Exam Date: 07/26/17 Accession Number: [id number] Exam: CT/CT Head WO CT Head WO CT HEAD WITHOUT CONTRAST CLINICAL HISTORY: Seizure. COMPARISON: No relevant prior study available at time of interpretation. TECHNIQUE: Axial CT images of the brain from skull base to vertex, including portions of the face and sinuses, were obtained without contrast. Multiplanar 2D reformatted images were generated and reviewed. Dose reduction techniques were achieved byusing automated exposure control and/or adjustment of mA and/or kV according to patient size and/oruse of iterative reconstruction technique. FINDINGS: Brain: No [...] infarct, recommend MRI. CC: JOSE LUIS REESE; [employer] FAMILY DOCTOR Technologist: GINNY MCGILL Dictated By: ASTON FARIAS Signed Date/Time: 07/26/17, 2313 Dictated Date/Time: 07/26/17 183 Hot Packer: YURIY ASTORGA Printed Date/Time: , This report was electronically signed in another vendor systemNormalKeralty Hospital MiamiCulture Urineon 46-84-1577Dqruxcy UrineBacteria Ur Cult: GROSS CONTAMINATION-SUGGEST REPEAT IF UTI STILL SUSPECTEDNormalKeralty Hospital MiamiComment on above:Performed By: #### CBCD ####[facility] [address] [place] [address] ,Randy Talavera M.D. FCAP, FASCPAcetaminophen Levelon 19-04-8960Ojtrlhwtcypnw mass conc< 5.0Low 10-30Keralty Hospital MiamiComment on above:Result Comment: Less than measurable rangeTHERAPEUTIC: 10-30 UG/MLPOSSIBLE TOXICITY: >100 UG/MLPROBABLE TOXICITY: >200 UG/MLPerformed By: #### ACETMarva, GORDO ####[facility] [place] [address] ,Randy Talavera M.D. FCAP, FASCPCBC With Differentialon 41-37-3564TEL Manual DiffNONormalKeralty Hospital MiamiComment on above:Performed By: #### CBCD ####[address] [address] ,Randy Talavera M.D. FCAP, FASCPBasophils Auto #/vol (Bld)0.06 10:3/uLNormal0.02-0.2MOrlando Health St. Cloud HospitalComment on above:Performed By: #### CBCD ####[address] [address] ,Randy Talavera M.D. FCAP, FASCPBasophils/100 WBC Auto (Bld)0.6 %Normal0-1.0[facility] Hospital MiamiComment on above:Performed By: #### CBCD ####[facility] [place] [address] [phone] ,Randy Talavera M.D. FCAP, FASCPEosinophils0.11 10:3/uLNormal0-0.5[facility] Hospital MiamiComment on above:Performed By: #### CBCD ####[facility] [place] [address] ,Randy Talavera M.D. FCAP, FASCPEosinophils/100 leukocytes1.2 %Normal1.0-3.0[facility] Hospital MiamiComment on above:Performed By: #### CBCD ####[address] [phone] ,Randy J. Macatol, M.D. FCAP, FASCPErythrocytes (RBC)4.82 10:6/uLNormal3.80-5.20[facility] Hospital MiamiComment on above:Performed By: #### CBCD ####[address] [phone] ,Randy Talavera M.D. FCAP, FASCPHematocrit (HCT)43.9 %Ffpunx36.0-47.0[facility] MiamiComment on above:Performed By: #### CBCD ####[address] [phone] ,Randy Talavera M.D. FCAP, FASCPHemoglobin mass conc (Bld)14.5 g/kULermts79.7-15.7[facility] Hospital MiamiComment on above:Performed By: #### CBCD ####[address] [phone] ,Randy Talavera M.D. FCAP, FASCPLymphocytes2.34 10:3/uLNormal1.5-4.0[facility] Hospital MiamiComment on above:Performed By: #### CBCD ####[facility] [place] [address] [phone] ,Randy Talavera M.D. FCAP, FASCP Lymphocytes/100 deakjtdkrs54.5 %Kaddrn06.0-40.0[facility] Comment on above:Performed By: #### CBCD ####[facility] [place] [address] [phone] ,Randy Talavera M.D. FCAP, FASCP MCH30.1 jcCaowkl71.0-40.0[facility] Hospital MiamiComment on above: Performed By: #### CBCD ####[address] [id number] ,Randy Talavera M.D. FCAP, JVHOSRMO31.1 CU sZYesevk24.0-100.0[facility] MiamiComment on above:Performed By: #### CBCD ####[address] [phone] ,Randy Talavera M.D. FCAP, FASCPMean Corpusc Hgb Fhytkygznzafy99.0 G/BZLnohko57.0-36.0[facility] MiamiComment on above:Performed By: #### CBCD ####[address] [phone] ,Randy Talavera M.D. FCAP, FASCPMonocytes 0.84 10:3/uLHigh0.2-0.8[facility] Hospital MiamiComment on above:Performed By: #### CBCD ####[address] [phone] ,Randy Talavera M.D. FCAP, FASCPMonocytes/100 leukocytes 8.8 %Normal4.0-10.0[facility] Hospital MiamiComment on above:Performed By: #### CBCD ####[address] [id number] ,Randy Talavera M.D. FCAP, FASCPNeutrophils6.17 10:3/uL Normal2.0-7.0[facility] Hospital MiamiComment on above:Performed By: #### CBCD ####[address] [id number] ,Randy Talavera M.D. FCAP, FASCPNeutrophils/100 rjfpyvwpif56.5 %High54.0-62.0[facility] SystemComment on above: Performed By: #### CBCD ####[address] [place], [place] 2125350 ,Randy Talavera M.D. FCAP, FASCPNucleated erythrocytes0 10:3/uLNormal-0[facility] Hospital MiamiComment on above: Performed By: #### CBCChaz ####[facility] [place] [address] [id number] ,Randy Talavera M.D. FCAP, FASCPNucleated erythrocytes0 /100WBCNormal-0[facility] MiamiComment on above: Performed By: #### JAMI ####[address] 8974550 ,Randy Talavera M.D. FCAP, FASCPPlatelets 285 10:3/lSPbkwmm080-063MpdsbxlrKeralty Hospital MiamiComment on above: Performed By: #### JAMI ####[facility] [place] [address] [phone] ,Randy Talavera M.D. FCAP, FASCPRed Cell Xsoqlsowdykf48.6Unvakx54.5-14.5[facility] Hospital MiamiComment on above: Performed By: #### JAMI ####[facility] [place] [address] [id number] ,Randy Talavera M.D. FCAP, FASCPWBC (Leukocytes)9.6 10:3/uLNormal3.5-11.0[facility] MiamiComment on above:Performed By: #### CBCChaz ####[facility] [place] [address] 5995850 ,Randy Talavera M.D. FCAP, FASCPCardiac Troponin Ton 58-62-6567Vqvtsebx T.cardiac mass concug/LNormal0-0.24364XyeobypjKeralty Hospital MiamiComment on above:Result Comment: Less than measurable rangePerformed By: #### ADP, MG, TPNT, E ####[facility] [place], [place] 6326650 ,Randy Talavera M.D. FCAP, FASCP Comprehensive Metabolic Panelon 27-73-7498Aaogrjy1.2 g/dLNormal4.0-4.9[facility] MiamiComment on above:Performed By: #### ADP, MG, TPNT, E ####[facility] [address] [place] [address] [phone],Randy Talavera M.D. FCAP, FASCPAlkaline phosphatase (ALP)63 U/LNormal 35-104Keral[facility] Hospital MiamiComment on above:Performed By: #### ADP, MG, TPNT, E ####[address] [address] ,Randy Talavera M.D. FCAP, FASCPALT Alanine Oiokwiuhsu23 U/L Normal5-33[facility] Hospital MiamiComment on above:Performed By: #### ADP, MG, TPNT, E ####[address] 9335450 ,Randy Talavera M.D. FCAP, FASCPAnion gap21 mmol/LHigh 9-18[facility] MiamiComment on above:Performed By: #### ADP, MG, TPNT, E ####[facility] [address] [place] [address] [place] [address] ,Randy Talavera M.D. FCAP, FASCPAST Aspartate Bxzvnsnjegef39 U/LNormal5-32[facility] MiamiComment on above:Performed By: #### ADP, MG, TPNT, E ####[facility] [address] [place] [address] [id number] ,Randy Talavera M.D. FCAP, FASCPBilirubin (total)0.3 mg/dLNormal0.15-1.2MOrlando Health St. Cloud HospitalComment on above:Performed By: #### ADP, MG, TPNT, E ####[address] [address] ,Randy Talavera M.D. FCAP, FASCPBUN (urea nitrogen) 17.2 mg/dLNormal6-20[facility] MiamiComment on above:Performed By: #### ADP, MG, TPNT, E ####[address] [address] ,Randy Talavera M.D. FCAP, FASCPCalcium 9.6 mg/dLNormal8.6-10.0[facility] MiamiComment on above:Performed By: #### ADP, MG, TPNT, E ####[address] 4886950 ,Randy Talavera M.D. FCAP, FASCPChloride 99 mmol/MTcgzjj03-706LstrelcxKeralty Hospital MiamiComment on above:Performed By: #### ADP, MG, TPNT, E ####[address] [address] ,Randy Talavera M.D. FCAP, UUKIOUU671 mmol/BIrk94-09WzmbxrubKeralty Hospital MiamiComscheurer hospital on above:Performed By: #### ADP, MG, TPNT, E ####[address] [address] ,Randy Talavera M.D. FCAP, FASCPCreatinine0.80 mg/dL Normal0.51-0.95[facility] MiamiComment on above:Performed By: #### ADP, MG, TPNT, E ####[address] [phone] ,Randy Talavera M.D. FCAP, FASCPeGFR (non-black) mL/min/{1.73_m2}NormalHCA Florida West Marion Hospitalment on above:Result Comment: THE GFR IS ESTIMATED USING THE MDRD STUDY EQUATION.*NOTE* IF THE RACE OF THE PATIENT WAS UNKNOWN AT THE TIME OFREGISTRATION, AND THE PATIENT IS , MULTIPLYTHE EGFR RESULT PROVIDED BY 1.21.NORMAL: EGFR >60.0 Performed By: #### ADP, MG, TPNT, E ####[facility] [address] [place], [place] 3626250 ,Randy Talavera M.D. FCAP, FASCPGlucose mass arun247 mg/rZYzvl82-452IwzfcgtsDeSoto Memorial Hospital on above: Result Comment: INTREPRETATION FOR FASTING BLOOD GLUCOSE:70-100 mg/dl NORMAL GLUCOSE DVDYQAZEV047-236 mg/dl IMPAIRED FASTING GLUCOSE (PRE-DIABETES)>125 mg/dl DIABETES - ON MORE THAN ONE TESTINGPerformed By: #### ADP, MG, TPNT, E ####[facility] [address] [place] [address] [phone],Randy Talavera M.D. FCAP, FASCPPotassium molar conc3.5 mmol/LLow 3.6-5.0[facility] on above:Performed By: #### ADP, MG, TPNT, E ####[facility] [address] [place], [place] [address] ,Randy Talavera M.D. FCAP, FASCPProtein7.6 g/dLNormal6.4-8.3 [facility] on above:Performed By: #### ADP, MG, TPNT, E ####[facility] [address] [place], [place] [address] ,Randy Talavera M.D. FCAP, EOTBLQzzfml834 mmol/LNormal 136-145[facility] SystemComment on above:Performed By: #### ADP, MG, TPNT, E ####[facility] [address] [place] [address] ,Randy Talavera M.D. FCAP, FASCPDrug Screen Urine 11 panelon 41-77-2005Ghjtuyo Screen UrineNegativeNormalNEGKeralty Hospital Miami Comment on above:Performed By: #### DSU ####[address] [phone] ,Randy Talavera M.D. FCAP, FASCP Amphetamine Screen UrinePositiveAbHCA Florida [facility] Hospital Comment on above:Performed By: #### DSU ####[address] [phone] ,Randy Talavera M.D. FCAP, FASCP Barbiturate Screen UrineNegativeNormalNEGKeralty Hospital MiamiComment on above:Performed By: #### DSU ####[facility] [place] [address] [phone] ,Randy Talavera M.D. FCAP, FASCP Benzodiazapine Screen UrineNegativeHCA [facility] Comment on above:Performed By: #### DSU ####[facility] [place] [address] [id number] ,Randy Talavera M.D. FCAP, FASCP Cocaine Screen UrineNegativeNormalNEGKeralty Hospital MiamiComment on above:Performed By: #### DSU ####[facility] [place] [address] [phone] ,Randy Talavera M.D. FCAP, FASCPMarijuana Screen UrinePositiveAbnormalNEGKeralty Hospital MiamiComment on above: Performed By: #### DSU ####[address] [address] ,Randy Talavera M.D. FCAP, FASCPMethadone Screen Urine NegativeNormalNEGDeSoto Memorial Hospital on above:Performed By: #### DSU ####[address] [address] ,Randy Talavera M.D. FCAP, FASCPOpiate Screen Urine NegativeNormalNEGKeralty Hospital MiamiComscheurer hospital on above:Performed By: #### DSU ####[address] [id number] ,Randy Talavera M.D. FCAP, FASCPOxycodone UrineNegative NormalNEGKeralty Hospital MiamiComscheurer hospital on above:Performed By: #### DSU ####[address] [phone],Randy Talavera M.D. FCAP, FASCPPhencyclidine Screen UrineNegativeNormal NEGKeralty Hospital MiamiComscheurer hospital on above:Performed By: #### DSU ####[address] [phone],Randy Talavera M.D. FCAP, FASCPPropoxyphene Screen UrineNegativeNormal NEGKeralty Hospital MiamiComscheurer hospital on above:Performed By: #### DSU ####[address] [phone],Randy Talavera M.D. FCAP, FASCPEthanol Bloodon 30-93-3714Ueqchlm Blood Normal0-99[facility] on above:Result Comment: Result is less than minimum detection limitPerformed By: #### ADP, MG, TPNT, E ####[address] [phone],Randy Talavera M.D. FCAP, FASCPMagnesium Bloodon 99-48-3636Xxmjijglc 2.0 MG/DLNormal1.6-2.6MOrlando Health St. Cloud HospitalComscheurer hospital on above:Performed By: #### ADP, MG, TPNT, E ####[address] [phone] ,Randy Talavera M.D. FCAP, FASCPPregnancy Test Urineon 49-41-4593BPE ( test) Ql (U)NegativeNormalNEGATIVEKeralty Hospital MiamiComment on above:Order Comment: Source Of Urine Specimen? Clean Catch`Performed By: #### PTU, U REFLEX ####[address] [phone] ,Randy Talavera M.D. FCAP, FASCPSalicylate Levelon 63-03-7921Tajfisafmw Level< 0.2Mob4-00FvifzahzKeralty Hospital MiamiComscheurer hospital on above:Result Comment: Less than measurable range Performed By: #### ACETA, GORDO ####[address] [id number] ,Randy Talavera M.D. FCAP, FASCP Urinalysis with Reflex Cultureon 20-06-8255Aynnykg222701Ghbxgtg46-48Vmbtlcoz4-1Ouqhiwnw [facility] SystemComscheurer hospital on above:Order Comment: Source Of Urine Specimen? Clean Catch`Performed By: #### PTU, U REFLEX ####[facility] [address] [place] [address] [id number] ,Randy Talavera M.D. FCAP, FASCPHyaline Fmpyn9-0Bswfxj7-9JjflfajpOrlando Health St. Cloud HospitalComscheurer hospital on above: Order Comment: Source Of Urine Specimen? Clean Catch`Performed By: #### PTU, U REFLEX ####[facility] [address] [place] [address] [id number]( [phone],Randy Talavera M.D. FCAP, FASCPIs a Culture Indicated?CULTURE ORDEREDNormalKeralty Hospital MiamiComscheurer hospital on above:Order Comment: Source Of Urine Specimen? Clean Catch`Performed By: #### PTU, U REFLEX ####[facility] [address] [place], [place] [phone],Randy Talavera M.D. FCAP, FASCPUrine, mucus presence in sedimentSMALL NormalNONE-SMALLKeralty Hospital MiamiComscheurer hospital on above:Order Comment: Source Of Urine Specimen? Clean Catch`Performed By: #### PTU, U REFLEX ####[facility] [address] [address] [phone],Randy Talavera M.D. FCAP, FASCPBilirubin Ql (U)PositiveAbnormal NEGATIVEKeralty Hospital MiamiComscheurer hospital on above:Order Comment: Source Of Urine Specimen? Clean Catch`Result Comment: UNABLE TO CONFIRM TEST DUE TO THE REAGENT NO LONGER BEINGAVAILABLE; INTERPRET TEST WITH CAUTION.Performed By: #### PTU, U REFLEX ####[facility] [address] [place], [place] [id number] ,Gustavo ButlerAP, FASCPUrine, erythrocytes0-2 Normal0-2MOrlando Health St. Cloud HospitalComscheurer hospital on above:Order Comment: Source Of Urine Specimen? Clean Catch`Performed By: #### PTU, U REFLEX ####[facility] [address] [place] [address] ,Randy Talavera M.D. FCAP, FASCPUrine, axosmayfnn4-09Rcwmbrzj0-6Evpwakou Memorial Health SystemComscheurer hospital on above:Order Comment: Source Of Urine Specimen? Clean Catch`Performed By: #### PTU, U REFLEX ####[facility] [address] [place], [place] [phone] ,Randy Talavera M.D. FCAP, FASCP Epithelial Ulez0-2Otieymzw2-3GsguouxlHCA [facility] on above: Order Comment: Source Of Urine Specimen? Clean Catch`Performed By: #### PTU, U REFLEX ####[facility] [address] [place] [address]( [phone],Randy Talavera M.D. FCAP, FASCPCharacter UrineCLOUDYNoal [facility] on above:Order Comment: Source Of Urine Specimen? Clean Catch`Performed By: #### PTU, U REFLEX ####[address] [address] ,Randy Talavera M.D. FCAP, FASCPUrine, colorYELLOWNormCampbellton-Graceville Hospital on above:Order Comment: Source Of Urine Specimen? Clean Catch`Performed By: #### PTU, U REFLEX ####[facility] [address] [place] [address] ,Randy Talavera M.D. FCAP, FASCPUrine, glucose presence NegativeNormalNEGSalah Foundation Children's [facility] on above:Order Comment: Source Of Urine Specimen? Clean Catch`Performed By: #### PTU, U REFLEX ####[address] [phone],Randy Talavera M.D. FCAP, FASCPUrine, hemoglobin presence1+Abnormal NEGATIVEDeSoto Memorial Hospital on above:Order Comment: Source Of Urine Specimen? Clean Catch`Performed By: #### PTU, U REFLEX ####[facility] [address] [place] [address] ,Randy Talavera M.D. FCAP, FASCPUrine, ketones presenceNegativeNormalNEGSalah Foundation Children's Hospital on above:Order Comment: Source Of Urine Specimen? Clean Catch`Performed By: #### PTU, U REFLEX ####[facility] [address] [place] [address] ,Randy Talavera M.D. FCAP, FASCPUrine, leukocyte esterase presenceSMALLAbnormalNEGATIVEKeralty Hospital MiamiComment on above:Order Comment: Source Of Urine Specimen? Clean Catch`Performed By: #### PTU, U REFLEX ####[facility] [place] [address] ,Randy Talavera M.D. FCAP, FASCP Urine, nitrite presenceNegativeNormalNEGATIVEKeralty Hospital Miami Comment on above:Order Comment: Source Of Urine Specimen? Clean Catch`Performed By: #### PTU, U REFLEX ####[address] [address] ,Randy Talavera M.D. FCAP, FASCPUrine, pH6.0 [pH] Normal5.0-8.5Keralty Hospital MiamiComment on above:Order Comment: Source Of Urine Specimen? Clean Catch`Performed By: #### PTU, U REFLEX ####[facility] [place] [address] [phone],Randy Talavera M.D. FCAP, FASCPUrine, protein jukotaxp39 MG/DLAbnormal NEGATIVEKeralty Hospital MiamiComment on above:Order Comment: Source Of Urine Specimen? Clean Catch`Performed By: #### PTU, U REFLEX ####[facility] [address] [place] [address] ,Randy Talavera M.D. FCAP, FASCPUrine, specific gravity1.917Iaagxs8.005-1.035Keralty Hospital MiamiComment on above:Order Comment: Source Of Urine Specimen? Clean Catch`Performed By: #### PTU, U REFLEX ####[facility] [address] [place] [address] ,Randy Talavera M.D. FCAP, FASCPUrine, urobilinogen1.0 {Yarely'U}/dLNormal0-1.0Keralty Hospital MiamiComment on above:Order Comment: Source Of Urine Specimen? Clean Catch` Performed By: #### PTU, U REFLEX ####[facility] [address] [place], [place] [id number] ,Randy Talavera M.D. FCAP, FASCP Vital Signs Date TimeVital SignValuePerforming DjnmwfeyoUnbxbufw11-39-0746 09:41-0400Body eujnnu120.7 cmJacalexei Graziani BAND MASTER Work Phone: [facility] CenterJhpsvpeqpn83-63-0408 09:41-0400Body mass index (BMI) [Ratio]32.08 kg/l8Stqljtgbgi Graziani BAND MASTER Work Phone: [facility] CenterIcvyoarlxc35-49-7082 09:41-0400Body sujtdv20.71 kgJacqueline Graziani BAND MASTER Work Phone: [facility] CenterIhoootutwc75-97-5128 10:53-0400Body mass index (BMI) [Ratio]33.47 kg/v8Tilch Hiram DO Work Phone: [facility] CenterGkziverlvu73-68-6112 10:53-0400Body smepny51.85 kgCorey Hiram DO Work Phone: [facility] CenterXbgroshdpf45-42-7291 10:53-0400Diastolic blood cweurkep97 mm[Hg]Hima Hiram DO Work Phone: [facility] CenterJybdpuzuup39-37-3044 10:53-0400Systolic blood mqogfmfm395 mm[Hg]Hima Hiram DO Work Phone: [facility] CenterKonuxefqqt30-11-9546 14:47-9373YhV2% (BldA) [Mass fraction]98 %[facility]04-23-2025 14:47-0400 Heart rate74 /minAC[facility] System04-23-2025 14:30-0400Heart rate62 /minAC[facility] System04-23-2025 14:30-2761ZtD3% (BldA) [Mass fraction]99 %[facility]04-23-2025 14:30-0400Diastolic blood rokbpatn71 mm[Hg][facility]04-23-2025 14:30-0400Mean blood angwingm13 mm[Hg][facility]04-23-2025 14:30-0400Systolic blood pressure 117 mm[Hg][facility]04-23-2025 14:00-0899LoR7% (BldA) [Mass fraction]99 %[facility]04-23-2025 14:00-0400Heart rate60 /minAC[facility] System04-23-2025 14:00-0400Diastolic blood eqebbnnf78 mm[Hg][facility]04-23-2025 14:00-0400Mean blood jddgqutq24 mm[Hg][facility]04-23-2025 14:00-0400Systolic blood edxvquaj850 mm[Hg][facility]04-23-2025 13:19-0400Diastolic blood mm[Hg][facility]04-23-2025 13:19-0400Systolic blood amesrbjc936 mm[Hg][facility]04-23-2025 13:19-0400Mean blood mm[Hg][facility]04-23-2025 12:19-0400Body dllitpgihao82.06 [degF][facility]04-23-2025 12:19-0400Heart rate76 /minAC[facility] System04-23-2025 12:19-0400Respiratory rate18 /minAC[facility] System04-03-2025 13:58-0400Heart rate74 /minAC[facility] System04-03-2025 13:58-0400Respiratory rate20 /minAC[facility] System04-03-2025 13:57-0400 Heart rate68 /minAC[facility] System04-03-2025 13:57-3914PsB4% (BldA) [Mass fraction]99 %[facility]04-03-2025 13:44-0400Heart rate58 /minAC[facility] System04-03-2025 13:44-7612WiI6% (BldA) [Mass fraction]98 %[facility]04-03-2025 13:30-7090JwA1% (BldA) [Mass fraction]98 % [facility]04-03-2025 13:30-0400Diastolic blood errkuiek14 mm[Hg][facility]04-03-2025 13:30-0400Mean blood fiktekeu32 mm[Hg][facility]04-03-2025 13:30-0400Systolic blood wsxxorel389 mm[Hg][facility]04-03-2025 13:12-0400Respiratory rate28 /minAC[facility] System04-03-2025 13:10-0400Respiratory rate12 /min [facility]04-03-2025 13:10-0400Diastolic blood tcdqyjge89 mm[Hg][facility]04-03-2025 13:10-0400Systolic blood pavjqnsy647 mm[Hg][facility]04-03-2025 13:0400Mean blood lmmegebu15 mm[Hg][facility]04-03-2025 12:0400Diastolic blood avbafehg74 mm[Hg][facility]04-03-2025 12:0400Systolic blood afcqecns000 mm[Hg][facility]04-03-2025 12:0400Mean blood ilrupsro14 mm[Hg][facility]04-03-2025 12:0400Respiratory rate18 /minAC[facility]04-03-2025 12:04-0400Body xhojlbhfoaq96.34 [degF][facility]04-03-2025 12:04-0400Heart rate70 /minAC[facility] System04-03-2025 12:04-0400Respiratory rate19 /min [facility]02-25-2025 10:15-0500Body bifamt558.7 cmSybil Reis MD Work Phone: [facility] CenterOvigfualdv31-82-8841 10:15-0500Body mass index (BMI) [Ratio]34.91 kg/p1UehvnSybil Reis MD Work Phone: [facility] CenterJluvpatjfh48-16-2945 10:15-0500Body temperature 97.3 [degF]Sybil Reis MD Work Phone: [facility] CenterMinwndblxx46-91-3267 10:15-0500Body qqwypr524.15 kgSybil Reis MD Work Phone: [facility] CenterMujzvnvoaw07-41-8553 10:15-0500Diastolic blood gysxznik35 mm[Hg]Sybil Reis MD Work Phone: [facility] CenterZdzxovcwil72-68-6497 10:15-0500Heart rate78 /min Sybil Reis MD Work Phone: [facility] CenterTtdcssrdqo04-78-7519 10:15-5307WdY0% (BldA) [Mass fraction]98 %Sybil Reis MD Work Phone: [facility] CenterPrltxezqky80-95-4768 10:15-0500Systolic blood mm[Hg]Sybil Reis MD Work Phone: [facility] CenterDyjtfdxehu54-34-5357 10:13-0500Body buhdff296.72 cm[facility]01-[facility] 10:13-0500Body mass index (BMI) [Ratio]33.9 kg/c3MioaokwdfWhite Hospital01-09-2025 10:13-0500Body kufpgkbevqp01.9 [degF][facility]01-09-2025 10:13-0500Body wosysb492.15 kgWhite Hospital01-09-2025 10:13-0500Diastolic blood obxpmvjw82 mm[Hg][facility]01-09-2025 10:13-0500 Heart rate77 /[facility]01-09-2025 10:13-3082OvD1% (BldA) [Mass fraction]97 %[facility]01-09-2025 10:13-0500 Systolic blood lbgrnifq058 mm[Hg][facility]12-13-2024 09:30-0500Body rmqvve920.7 cmJajustenline Kadeniani BAND MASTER Work Phone: [facility] CenterPammecjgbq75-83-6977 09:30-0500Body mass index (BMI) [Ratio]34.97 kg/v9Tbqvayizaa Graziani BAND MASTER Work Phone: [facility] CenterFlbutmprbx06-40-3015 09:30-0500Body czapim440.33 kgRosanaline Kadeniani BAND MASTER Work Phone: [facility] CenterNcacwxmhcy58-10-0746 09:30-0500Diastolic blood apdasyxx46 mm[Hg]Hodan Mckeon BAND MASTER Work Phone: [facility] CenterGuednveycf60-10-3594 09:30-0500Systolic blood zozmpltc444 mm[Hg]Hodan Mckeon BAND MASTER Work Phone: [facility] CenterTxspfnmnnt91-58-3503 15:16-0500Blood Pressure LocationFeroz Jacob 141-7201Fpmkpg-UmklbHocking [facility] Qspw27-87-5313 15:16-0500Body .52 [degF]Feroz Jacob 044-1886Agwemi-AuzzaHocking Valley [facility] Hospital [facility] Vwmh11-87-4799 15:16-0500Diastolic blood kiewqugp80 mm[Hg]Feroz Jacob 018-2411Dohvvb-QbondHocking Valley Community Hospital [facility] Rzgx75-06-7459 15:16-0500Heart rate55 /minFeroz Jacob 722-2874Gtejqq-PhyyjHocking Valley Community Hospital [facility] Lshe16-39-5366 15:16-7591MhQ9% (BldA) [Mass fraction]98 %Feroz Jacob 062-8716Gcrxmk-PusafHocking Valley Community Hospital [facility] Uqbl11-23-1665 15:16-0500Systolic blood oxvtrvdo690 mm[Hg]Feroz Jacob 757-8136Tkridy-PlcrwHocking Valley Community Hospital [facility] Xudg05-60-4313 14:57-0400Diastolic blood duehutqb39 mm[Hg]Lance [facility]10-04-2024 14:57-0400Heart rate79 /zandraLance Cortes [facility]10-04-2024 14:57-0400Mean blood pvirooof85 mm[Hg][facility]10-04-2024 14:57-0400 Respiratory rate18 /minLance Cortes [facility]10-04-2024 14:57-0986ZvO8% (BldA) [Mass fraction]98 %[facility]10-04-2024 14:57-0400 Systolic blood lisbwzwr577 mm[Hg][facility]10-04-2024 14:24-0400Body cxzcbmygczn67.7 [degF][facility]10-04-2024 14:24-0400 Diastolic blood aislhlix120 mm[Hg]Lance Cortes [address]10-04-2024 14:24-0400Heart rate87 /Sulma Cortes [address]10-04-2024 14:24-0400 Respiratory rate20 /Sulma Cortes [address]10-04-2024 14:24-0912PiY1% (BldA) [Mass fraction]97 %[facility]10-04-2024 14:24-0400 Systolic blood mm[Hg]Lance Cortes [address]09-19-2024 15:38-0400Body uzjjqefbamv30.2 [degF][facility]09-19-2024 15:38-0400 Diastolic blood lqckdbun91 mm[Hg][facility]09-19-2024 15:38-0400Heart rate68 /[facility]09-19-2024 15:38-0400Respiratory rate16 /[facility]09-19-2024 15:38-4153LkN8% (BldA) [Mass fraction]98 %[facility] 12-06-2023 15:38-0400Systolic blood kfsaligu238 mm[Hg][facility]09-05-2024 12:10-0400Body tpofqx502.7 cmHodan Mckeon NP Work Phone: [place] [address]Pzvfpzuadx40-32-5107 12:10-0400Body mass index (BMI) [Ratio]33.45 kg/u1Iegakgbyedmitchell Kevini BAND MASTER Work Phone: [facility] CenterAvtpohoazm05-52-9273 12:10-0400Body eedxmb40.79 kgJacalexei Kevini BAND MASTER Work Phone: [facility] CenterIweiiyzmbk34-54-4778 12:10-0400Diastolic blood ocxtstub06 mm[Hg]Hodan Kevini BAND MASTER Work Phone: [facility] CenterIdiyutihis43-92-9270 12:10-0400Systolic blood fglymgec747 mm[Hg]Hodan Kevini BAND MASTER Work Phone: [facility] CenterSbgniwomxj16-18-0328 10:24-0400Body mass index (BMI) [Ratio]33.45 kg/m2Gracia Gwen PA Work Phone: [facility] CenterIpuojbllzm82-79-9009 10:24-0400Body xraxai19.79 kgGracia Gwen PA Work Phone: [facility] CenterLmmokknmgo94-49-2504 10:24-0400Diastolic blood esohkmja01 mm[Hg]Gracia Hidalgo PA Work Phone: [facility] CenterJdlcwdeydx11-99-5223 10:24-0400Systolic blood oogjwgoj387 mm[Hg]Gracia Hidalgo PA Work Phone: [facility] CenterYmpmjnfavp30-09-3438 14:38-0400Body yjsgzn205.72 cmWhite [facility]07-25-2024 14:38-0400Body mass index (BMI) [Ratio]33.3 kg/t8ZwygseoevWhite Hospital07-25-2024 14:38-0400Body kscwfehpnit46.8 [degF][facility]07-25-2024 14:38-0400Body .33 kgWhite [facility]07-25-2024 14:38-0400Diastolic blood lrocwpeo60 mm[Hg][facility]07-25-2024 14:38-0400 Heart rate88 /minWhite Hospital07-25-2024 14:38-0400 Respiratory rate16 /minWhite Hospital07-25-2024 14:38-0400 SaO2% (BldA) [Mass fraction]98 %[facility]07-25-2024 14:38-0400Systolic blood ubdxgupm333 mm[Hg][facility] 08-26-2023 10:07-0400Body ejyhsvzyzkw608.04 [degF]Lance Cortes [address] [place], [place] 9842206-09-2024 10:07-0400 Diastolic blood mm[Hg]Lance Cortes [address] [place], [place] 9842206-09-2024 10:07-0400Heart rate90 /Sulma Cortes [address] [place], [place] 9842206-09-2024 10:07-0400 Respiratory rate20 /Sulma Cortes [address] [place], [place] 9842206-09-2024 10:07-6044XyE5% (BldA) [Mass fraction]95 %[facility]06-09-2024 10:07-0400 Systolic blood yskjsobc078 mm[Hg][facility]06-05-2024 16:57-0400Blood Pressure LocationMatthew Beebeons 220-2479Yhitfr-XuqrzHocking Valley Community Hospital [facility] Fesc86-87-6977 16:57-0400Body aungskecjsu03.24 [degF]Matthew Robles 559-4041Ftcdwv-Ykffn[address] [place] [address] [facility]ient Cvqu02-96-1270 16:57-0400Diastolic blood zeqiqwhq58 mm[Hg]Matthew Robles 404-8853Bcmwkr-Ojbhr[address] [place] [address] [facility] Bgqw18-08-3742 16:57-0400Heart rate86 /Josefina Robles 787-1942Lkvumm-RqaqvDetwiler Memorial Hospital06-05-2024 16:57-3026UeQ4% (BldA) [Mass fraction]98 %Matthew Robles 570-4104Owqpfs-GkjsiMercy Health [facility]06-05-2024 16:57-0400Systolic blood gfulajur800 mm[Hg]Matthew Robles 721-6826Mwaihu-TftsgMercy Health St. [facility]02-13-2024 15:46-0500Body mass index (BMI) [Ratio]33.45 kg/e2ZnyhjSybil Reis MD Work Phone: [facility] CenterGktsgwnkmj45-55-0515 15:46-0500Body temperature 96.8 [degF]Sybil Reis MD Work Phone: [facility] CenterUwehobfnzl34-45-4267 15:46-0500Body .79 kgSybil Reis MD Work Phone: [facility] CenterBffmqzsnqs92-85-7166 15:46-0500Diastolic blood mm[Hg]Sybil Reis MD Work Phone: [facility] CenterRdndyfqwyu26-76-6739 15:46-0500Heart rate95 /min Sybil Reis MD Work Phone: [facility] CenterWxarvgekyq56-82-5948 15:46-5759ZgV6% (BldA) [Mass fraction]100 %Sybil Reis MD Work Phone: [facility] CenterPfjbniahkc91-18-1035 15:46-0500Systolic blood ukprallo231 mm[Hg]Sybil Reis MD Work Phone: [facility] CenterJiwugfgowg65-16-1921 15:06-0500Blood Pressure Lety CAMPBELL [facility]11-07-2023 15:06-0500Diastolic blood dfjyxubw57 mm[Hg]FLORES CAMPBELL [facility]11-07-2023 15:06-0500Heart rate68 /minJENNIFER ISABELL [facility]11-07-2023 15:06-0500Respiratory rate16 /minJENNIFER ISABELL [facility]11-07-2023 15:06-0500Systolic blood budwoqjo404 mm[Hg]FLORES ISABELL [facility]05-12-2023 13:23-0400Body jyakbj004.7816 kgDR KAUSHAL PAZ .[facility] CenterComment on above:Performed By: #### MAG24 #### [facility] [address] [place] [address] Dr. Anthony Oneill03-14-2023 14:09-0400Blood Pressure LocationJENNIFER ISABELL [facility]03-14-2023 14:09-0400Diastolic blood ahubbqof81 mm[Hg]FLORES ISABELL [facility]03-14-2023 14:09-0400Systolic blood pioagvhx161 mm[Hg]FLORES ISABELL [facility]12-26-2022 02:36-0500Body tlhkeezdswk80.7 [degF]Kaylinn [facility]12-26-2022 02:36-0500 Diastolic blood gkuizxwy12 mm[Hg]Kaylinn [facility]12-26-2022 02:36-0500Heart rate86 /minKaylinn [facility]ken [facility]12-26-2022 02:36-0500 Respiratory rate18 /minJose Teran [address] [place], [place] 9842212-26-2022 02:36-6033YdX8% (BldA) [Mass fraction]99 %Jose Teran [address] [place], [place] 9842212-26-2022 02:36-0500 Systolic blood uxutfjzw934 mm[Hg]Radhamehao Teran [address] [place], [place] 9842212-11-2022 03:23-0500 Nursing Progress Note ReasonOther: discharge instructions given. pt verbalzied understanding.[facility]12-11-2022 03:20-0500 Diastolic blood nmevzuja09 mm[Hg][facility] 02-26-2022 03:20-0500Heart rate94 /minAC[facility]12-11-2022 03:20-0500Respiratory rate16 /minAC[facility]12-11-2022 03:20-5010WnA9% (BldA) [Mass fraction]97 %[facility]12-11-2022 03:20-0500Systolic blood pressure 125 mm[Hg][facility]12-11-2022 00:01-0500Body xnqwfjsunmk13.86 [degF][facility]12-11-2022 00:01-0500Diastolic blood abxvxfbv60 mm[Hg][facility]12-11-2022 00:01-0500Heart rate82 /minAC[facility]12-11-2022 00:01-0500Respiratory rate16 /minAC[facility]12-11-2022 00:01-8444CrD1% (BldA) [Mass fraction]98 %[facility]12-11-2022 00:01-0500Systolic blood pressure 138 mm[Hg][facility]11-26-2022 12:30-0500 Diastolic blood hhdudnzg79 mm[Hg]Jeff Maya [address] [place], [place] 9842211-26-2022 12:30-0500Heart rate87 /minJeff Maya [address] [place], [place] 9842211-26-2022 12:30-0500Mean blood vynnytwp21 mm[Hg]Jeff Maya [address]11-26-2022 12:30-0500 Respiratory rate19 /minJeff Maya [address] [place], [place] 1944011-26-2022 12:30-3962BoY9% (BldA) [Mass fraction]97 %Jeff Maya [address]11-26-2022 12:30-0500 Systolic blood cfvsmrvu234 mm[Hg]Jeff Maya [address] [place], [place] 1944011-26-2022 11:52-0500Body lphtyfsysye03.7 [degF]Jeff Maya [address] [place], [place] 1944011-26-2022 11:52-0500 Diastolic blood qfotikyw74 mm[Hg]Jeff Maya [address] [place], [place] 9842211-26-2022 11:52-0500Heart rate84 /minJeff Maya [address] [place], [place] 9842211-26-2022 11:52-0500 Respiratory rate18 /minJeff Maya [address] [place], [place] 9842211-26-2022 11:52-6747HmM7% (BldA) [Mass fraction]97 %Jeff Maya [address] [place], [place] 9842211-26-2022 11:52-0500 Systolic blood vmrlikxx388 mm[Hg]Jeff Maya [address] [place], [place] 9842211-04-2022 09:42-0400Body rjptupcbclr86.88 [degF]Jeff Maya [address] [place], [place] 9842211-04-2022 09:42-0400 Diastolic blood ubmouxat00 mm[Hg]Jeff Maya [address] [place], [place] 9842211-04-2022 09:42-0400Heart rate89 /Kev Maya [address] [place], [place] 9842211-04-2022 09:42-0400 Respiratory rate18 /Kev Maya [address] [place], [place] 9842211-04-2022 09:42-1862BlY1% (BldA) [Mass fraction]98 %Jeff Maya [address] [place], [place] 9842211-04-2022 09:42-0400 Systolic blood rordtevp374 mm[Hg]Jeff Maya [address] [place], [place] 9842210-10-2022 15:29-0400Blood Pressure LocationPapedro ROSE [facility]10-10-2022 15:29-0400Diastolic blood ytgebffa16 mm[Hg]Antonio ROSE [facility]10-10-2022 15:29-0400Heart rate67 /minPatrick ROSE [facility]10-10-2022 15:29-0400Respiratory rate16 /minPatrick ROSE [facility]10-10-2022 15:29-0400Systolic blood jdmunerg938 mm[Hg]Antonio ROSE [facility]07-02-2022 02:37-0400Diastolic blood pdmwjbyk62 mm[Hg]Kendrick Nicolas [address] [place], [place] 1944007-02-2022 02:37-0400Heart rate85 /minNoah Nicolas [address] [place], [place] 1944007-02-2022 02:37-0400Mean blood vykriesa303 mm[Hg]Kendrick Nicolas [address] [place], [place] 1944007-02-2022 02:37-0400 Respiratory rate16 /minNoah Nicolas [address] [place], [place] 1944007-02-2022 02:37-9504PkS1% (BldA) [Mass fraction]98 %Kendrick Nicolas [address] [place], [place] 1944007-02-2022 02:37-0400 Systolic blood mm[Hg]Kendrick Nicolas [address]07-02-2022 00:22-0400 Diastolic blood amdhwdjn07 mm[Hg]Kendrick Nicolas [address] [place], [place] 1944007-02-2022 00:22-0400Heart rate75 /minNoah Nicolas [address] [place], [place] 9842207-02-2022 00:22-0400Mean blood sjrqysiz57 mm[Hg]Kendrick Nicolas [address] [place], [place] 9842207-02-2022 00:22-0400 Respiratory rate16 /minNoah Nicolas [address]07-02-2022 00:22-5018BxE7% (BldA) [Mass fraction]99 %Kendrick Nicolas [address]07-02-2022 00:22-0400 Systolic blood baofdalk70 mm[Hg]Kendrick Nicolas [address] [place], [place] 9842207-01-2022 22:50-0400Body miltlsmsnrx82.88 [degF]Kendrick Nicolas [address] [place], [place] 9842207-01-2022 22:50-0400 Diastolic blood dsnsgvun50 mm[Hg]Kendrick Nicolas [address] [place], [place] [id number] 22:50-0400Heart rate85 /minNoah Nicolas [address] [place], [place] 1944007-01-2022 22:50-0400 Respiratory rate18 /minNoah Nicolas [address] [place], [place] 1944007-01-2022 22:50-6095YzE1% (BldA) [Mass fraction]95 %Kendrick Nicolas [address] [place], [place] 9842207-01-2022 22:50-0400 Systolic blood kumuuygd086 mm[Hg]Kendrick Nicolas [address] [place], [place] 9842206-09-2022 21:00-0400 Diastolic blood rbvfewlx12 mm[Hg]Jeff Maya [address] [place], [place] 9842206-09-2022 21:00-0400Heart rate95 /minJeff Maya [address] [place], [place] 9842206-09-2022 21:00-6958TmL3% (BldA) [Mass fraction]96 %Jeff Maya [address] [place], [place] 9842206-09-2022 21:00-0400 Systolic blood hdqegbxd945 mm[Hg]Jeff Maya [address] [place], [place] 9842206-09-2022 20:28-0400Body gmhlzizluea70.16 [degF]Jeff Maya [address] [place], [place] 9842206-09-2022 20:28-0400 Diastolic blood xkirioib09 mm[Hg]Jeff Maya [facility]06-09-2022 20:28-0400Heart rate96 /Kev Maya [facility]06-09-2022 20:28-0400 Respiratory rate20 /Kev Maya [facility]06-09-2022 20:28-6967SoH5% (BldA) [Mass fraction]95 %Jeff Maya [facility]06-09-2022 20:28-0400 Systolic blood mm[Hg]Jeff Maya [facility]02-16-2022 15:00-0500Body aorlom406.72 cmCameron Divcitor hugoy Other [employer] Other 02-16-2022 15:00-0500Body mass index (BMI) [Ratio] 37.25 kg/m8Gimupwr Ditty Other [employer] Other 02-16-2022 15:00-0500Body abyqcp532.13 kgCameron Ditty Other [employer] Other 02-16-2022 15:00-0500Diastolic blood yjigdfkb78 mm[Hg] Wero Ditty Other [employer] Other 02-16-2022 15:00-0500Systolic blood zgitaacd937 mm[Hg] Wero Ditty Other [employer] Other 01-05-2022 14:30-0500Body oququc023.22 kgCameron Ditty Other DAT[employer] Other Encounters Encounter DateEncounter TypeCare ProviderFacilityStart: 01-09-2025 End: 65-02-1028rjqpunqmufEkmsdxyy C BordnerFacility:CC KimberlykStart: 01-09-2025 End: 30-79-3106Mvjylfv encounter procedurePajose carlos Mercado [phone]-QhkseHocking [facility] Start: 12-25-2024 End: 99-05-4068Lprsgomct department patient visitAstrit H jdariFacility:[facility] Start: 10-21-2024 End: 48-21-0372Lnkpnh Fitz Mckeon BAND MASTER Work Phone: noms NEUROLOGYStart: 10-21-2024 End: 36-44-6778Nxdtif Fitz Mckeon BAND MASTER Work Phone: noms NEUROLOGYStart: 10-21-2024 End: 29-28-7484Eybvgro encounter procedureHodan Mckeon BAND MASTER Work Phone: noMS [facility] 210Comment on above: Intractable chronic migraine without aura and without status migrainosus (Primary Dx)Start: 10-21-2024 End: 39-19-2261ihvbeqdzazTOJMWBOVBXWilmar Cerda AvailableStart: 10-13-2024 End: 16-45-0571wibqozuxvpCxrst John KelchFacility:CC BrynnCipherOpticskStart: 10-13-2024 End: 21-19-4349Rbbhwyf encounter procedureDavid John Kelch [phone]-HvcajHocking Valley [facility] Start: 08-29-2024 End: 62-03-4789ttwxvzxoumLwjmv John KelchFacility:CC BrynnCipherOpticskStart: 08-29-2024 End: 60-84-0106Dkugebx encounter procedureDavid John Kelch [phone]-SrnzuHocking Valley [facility] Start: 07-17-2024 End: 12-48-9783Jaziry flowsheetCorey Hiram DO Work Phone: noms BCP OBStart: 07-17-2024 End: 36-36-0972Tcpebo flowsheetCorey Hiram DO Work Phone: noms BCP OBStart: 07-17-2024 End: 36-61-0132nggshcllkpUVOZF FAZIONot AvailableStart: 07-17-2024 End: 59-18-2676Dlgbtv outpatient visit 15 minutesCorey Hiram DO Work Phone: noms BCP OBComment on above:Adnexal cyst; Encounter for weight managementStart: 07-09-2024 End: 97-31-3255Bqdbyvdma department [facility] Start: 06-19-2024 End: 23-62-1141Pouvfd flowsAntonia Mckeon BAND MASTER Work Phone: noms NEUROLOGYStart: 06-19-2024 End: 84-51-5890Lbdjeq flowsAntonia Mckeon BAND MASTER Work Phone: noms NEUROLOGYStart: 06-19-2024 End: 26-07-5116Kswcvuvun department patient visitAstrit [facility] Start: 06-19-2024 End: 46-38-0623Gxjhekk encounter procedureHodan Mckeon BAND MASTER Work Phone: noms SWS NEURComment on above:Intractable chronic migraine without aura and without status migrainosus (CMS/HCC) (Primary Dx) Start: 06-19-2024 End: 16-96-1611sgxzvlllyrLJUFPEGOBA M GRAZIANINot AvailableStart: 06-17-2024 End: 30-95-4857Tyufjyd encounter procedureSmilton Joshi MD Work Phone: [facility]-Ultrasound [facility] VascularStart: 06-17-2024 End: 98-73-6348zcrijarucoVmjpvi E Ross MD Work Phone: [facility] Work Phone: Start: 06-06-2024 End: 81-65-2134njcnvoeqblDkmlhqerzSamaritan Hospital Center Work Phone: Start: 06-06-2024 End: 79-15-6950Qwjpxja encounter procedureD[facility] Work Phone: Start: 05-13-2024 End: 59-66-8612Yekwppisabell Reis MD Work Phone: noms NE FMStart: 05-13-2024 End: 45-67-2285Xnogtqsyed Reis MD Work Phone: noms NE FMStart: 05-13-2024 End: 11-93-8104hytzymibgrEHXNH M RUGGLESNot AvailableStart: 05-13-2024 End: 36-72-8658Pvitsr outpatient visit 25 minutesSybil Reis MD Work Phone: noms NE FMComment on above:Right-sided chest pain (Primary Dx); Anxiety; Obesity (BMI 30.0-34.9); BMI 34.0-34.9,adultStart: 03-27-2024 End: 15-64-2391mqxjvhgmtwWqzkjtzcfKettering Memorial Hospital Work Phone: Start: 03-27-2024 End: 13-72-4719Xjdafti encounter procedureD[facility] Work Phone: Start: 02-29-2024 End: 42-30-9071Milmsl Fitz Mckeon NP Work Phone: noms NEUROLOGYStart: 02-29-2024 End: 02-19-1054Topbws flowsheetHodan Kelly Kevinfavian BAND MASTER Work Phone: noms BM NEUROLOGYStart: 02-29-2024 End: 48-47-2009Durmeny encounter procedureHodan Kelly Mckeon BAND MASTER Work Phone: noms SWS NEURComment on above:Intractable chronic migraine without aura and without status migrainosus (CMS/HCC) (Primary Dx) Start: 02-29-2024 End: 34-86-8210pzzrabvoywTNOVNPUZQD Kelly Prashant AvailableStart: 01-30-2024 End: 17-96-8841qxecbmaaxvTuxhwfprvMetroHealth [facility] Work Phone: Start: 01-30-2024 End: 81-02-3704Fqyvsgj encounter procedureD[facility] V[facility] Work Phone: Start: 01-23-2024 End: 04-11-9920lkvlulvmgcMdssf M. DempseyFacility:ERICK Dfufytart: 01-23-2024 End: 79-38-1860Peuwjas encounter Mary Ann Jacob [phone]-EytmfHocking Valley [facility] Hospital [facility] Start: 12-21-2023 End: 12-46-0320Mabsgwsud department patient visitCarmelitalatanya Cortes [facility] Start: 12-06-2023 End: 83-51-6020rqkannsjdzMxgqbglmlMetroHealth [facility] Center Work Phone: Start: 12-06-2023 End: 65-62-6437Qthenjq encounter procedureD[facility] Vascular Surgery [place] Work Phone: Start: 11-27-2023 End: 93-25-0371yptuntfurcFHVKLIW LANGENBERGFacility:FTMCStart: 11-27-2023 End: 27-89-0469Vahpdol encounter procedureMAGELA [facility] Start: 11-22-2023 End: 79-22-4185Hcxxpxa encounter procedureHodan Mckeon BAND MASTER Work Phone: noms [facility] NEURComment on above:Intractable chronic migraine without aura and without status migrainosus (CMS/HCC) (Primary Dx) Start: 11-22-2023 End: 16-24-9677hkxcwhwbbzAXKQZJXUWS M GRAZIANINot AvailableStart: 11-13-2023 End: 79-06-6715Kzrgbd flowsVianey MCGILL Work Phone: noms BCP OBStart: 11-13-2023 End: 15-41-5216Hmmfqg flowsheetGracia MCGILL Work Phone: noms BCP OBStart: 11-13-2023 End: 77-30-4626Nylmxnqvz Result EncounterGracia MCGILL Work Phone: noms External Department UnsolicitedStart: 11-13-2023 End: 40-36-9032bouelnsdbcINE RAMEYNot AvailableStart: 11-13-2023 End: 84-36-0873Usmdzsr encounter Carol MCGILL Work Phone: NOMS HealthcareStart: 11-13-2023 End: 78-50-3893Ebqubdlc preventive med est patient 18-39 yrsGracia MCGILL Work Phone: noms BCP OBComment on above:Well woman exam with routine gynecological exam; Urinary tract infection without hematuria, site unspecified; Weight gainStart: 10-25-2023 End: 29-81-4069Hkhaaehwe Result EncounterHodan Mckeon BAND MASTER Work Phone: noms External Department UnsolicitedStart: 10-25-2023 End: 91-99-8009Jeyxrviuc Result EncounterHodan Mckeon BAND MASTER Work Phone: noms External Department UnsolicitedStart: 10-11-2023 End: 34-53-7324itvjeppjhlVjsynpqmoKettering Memorial Hospital Work Phone: Start: 10-11-2023 End: 91-00-8506Phhksop encounter procedureD[facility] Health [facility] Vascular Surgery Work Phone: Start: 09-18-2023 End: 70-24-0435xedhwmfysmVK-C FLORES CAMPBELLFacility:EU BellevueStart: 09-18-2023 End: 09-89-1428Fxjkpxt encounter procedureFLORES Carlos ISABELL [facility] Jocelin start: 08-26-2023 End: 99-25-4762Yvkiftvcv department patient visitJohn ParenteFacility:FTMCStart: 08-22-2023 End: 26-14-8380vufndetjhnYeai W. ParsonsFacility:FTMCStart: 08-22-2023 End: 36-57-2883Oro Drop offMatthew Robles [facility] Start: 08-22-2023 End: 85-62-2633mpwjvlrchwJedl W. ParsonsFacility:CC NorwalkStart: 08-22-2023 End: 27-04-2503Nscntuw encounter Manny Robles [phone]-WgwnpHocking Valley Community Hospital [facility] Start: 05-16-2023 End: 89-10-6797onyjqkodpnAhgt D HillsFacility:FTMCStart: 05-16-2023 End: 55-38-6738Qjwgsuh encounter procedureFilemon Morataya [facility] Start: 05-16-2023 End: 62-04-1916Illjxsybk Result EncounterTobrian MCGILL Work Phone: NOMS External Department UnsolicitedStart: 05-16-2023 End: 02-01-0982Tswnqxgyc Result EncounterTobrian MCGILL Work Phone: noms External Department UnsolicitedStart: 05-03-2023 End: 34-73-2190oygnenequkUkgkf M RugglesFacility:FTMCStart: 05-03-2023 End: 63-35-6005Vmgjiiw encounter Inez Reis [facility] Start: 05-03-2023 End: 95-75-4582Zmlvmntze Result EncounterSybil Reis MD Work Phone: noms External Department UnsolicitedStart: 05-03-2023 End: 14-80-5607Qehgdhaha Result EncounterSybil Reis MD Work Phone: noms External Department UnsolicitedStart: 05-02-2023 Telephone encounterGuadalujayme GEORGES NE FMComment on above:imagingStart: 05-01-2023 End: 64-16-1627Rjivjz outpatient visit 25 Ruby Reis MD Work Phone: noms NE FMComment on above:Left hip pain (Primary Dx); Left lower quadrant abdominal pain; Obesity (BMI 30.0-34.9); BMI 33.0-33.9,adult; Episodic cluster headache, not intractableStart: 66-42-6089Zqjcpf Raysa Reis MD Work Phone: noms NE FMStart: 89-90-6606Jpatkt Raysa Reis MD Work Phone: noms NE FMStart: 04-24-2023 End: 65-32-3586Kxuukrvrg department patient visitJohn ParenteFacility:FTMCStart: 03-29-2023 End: 34-34-7125jcvrwbooqgNftayuu R WATERSFacility:FTMCStart: 03-29-2023 End: 85-63-9450Rjd Drop offPatrick R ROSE [facility] Start: 03-15-2023 End: 35-77-0958wwwkdbzyjbXxfxtsg R WATERSFacility:CD:[id number]: 02-14-2023 End: 74-07-7135khhvjeypzlJomdyzt R WATERSFacility:FTMCStart: 02-14-2023 End: 29-78-0732Bdmotpw encounter procedurePapedro Parikh ROSE [facility] Start: 01-23-2023 End: 02-13-7797gquvysgzzvRIJNFSGY E PERRYFacility:EU ueStart: 01-23-2023 End: 45-24-9527Ldaxccn encounter procedureJENNIFER E ISABELL [facility] start: 01-23-2023 End: 35-46-6480ljfhdippaxKWUOQIZM E PERRYFacility:EU BellevueStart: 01-23-2023 End: 60-88-8808Tnilmxr encounter procedureJENNIFER E ISABELL [facility] start: 02-69-5128xqtkzsakwsSarvnnr R WATERSFacility:EU BellevueStart: 07-24-2022 End: 85-49-2709emihpvzgtqPHGeorgina PAZ .Facility:Z5Pmelu: 07-05-2022 End: 95-47-3347yilnikhlheEL GREGORY KARASIK .Facility:X3Yqqgr: 05-30-2022 End: 01-91-9403Obsbosq encounter procedureJENNIFER E ISABELL [facility] start: 05-29-2022 End: 33-76-1785dleuzvxmyvZHSLVZ KRISTI ROSSFacility:V5Thnnj: 05-29-2022 End: 41-30-4345ykithwxnnrTF KAUSHAL PAZ .Facility:G3Mdcdp: 05-10-2022 End: 98-54-1434eqmlrlrxrlHHPSHVNA PERRYFacility:H5Hclip: 03-13-2022 End: 71-32-8398Eahezdijb department patient visitJose Teran [facility] Start: 02-25-2022 End: 31-72-5846Rtbfqurvb department patient visitSaima LyyasmanyWayne Hospital Start: 02-11-2022 End: 47-32-4138Yknctyyew department patient visitJeff Maya [facility] Start: 01-27-2022 End: 64-07-6263pppqxtuljbTU ANTONIO ROSE .Facility:Z3Gsese: 01-20-2022 End: 60-53-1653Gzsszirai department patient visitJeff Maya [facility] Start: 12-26-2021 End: 01-56-1966Rxywrrr encounter procedureAntonio ROSE [facility] [place]oc[place] start: 12-12-2021 End: 69-18-6320jeayyqqpneEY PATRICK WATERS .Facility:E7Astdv: 10-17-2021 End: 88-73-3811Dkaohhs encounter procedureWERO HILLS [facility] Start: 09-16-2021 End: 18-60-8108Nicmjommk department patient visitKendrick Valenzuela [facility] Start: 08-25-2021 End: 94-44-3221Atqhepnfw department patient visitJeff Maya [facility] Start: 06-27-2021 End: 19-47-2117Donuflc encounter procedureCAMERON DITTY [facility] Start: 05-04-2021 End: 11-25-2147godqjehyyyXgwhjev Ditty Other DATY Other Start: 90-24-2013Jimdmyf encounter procedureCameron DittyFPG GastroenterologyStart: 03-23-2021 End: 51-96-6307kqjvyukwlfKwruwxy Ditty Other DATY Other Start: 86-09-2628VANC visit new patientCameron Ditty FPG GastroenterologyStart: 08-10-2017 End: 41-12-4469Jufoewfga department patient visitGREGUnitypoint Health Meriter Hospital SystemStart: 07-26-2017 End: 23-79-7117Wrcchdslk department patient visitCHELSEA TEJADAFacility:[facility] Procedures DateProcedureProcedure DetailPerforming ClinicianStart: 27-11-5448Nbfws dip stick/tablet rgnt non-auto w/o micrscpCorey Hiram DO Work Phone: Start: 11-13-9370Whghno scan of lower limb veinsKevin Joshi MD Work Phone: Start: 38-29-5737Twuhg dip stick/tablet rgnt non-auto w/o micrscpAmy Gwen MCGILL Work Phone: Start: 66-38-8602FWB,APTIMA HPV,AGE GDLNAmy Gwen PA Work Phone: Start: 48-35-2461Yfdloyzqtje observation [Identifier] in Cervix by Cyto stainJacalexei Mckeon BAND MASTER Work Phone: Start: 93-01-2375VY HEAD/BRAIN WO CONJacqueline Kelly Dave BAND MASTER Work Phone: Start: 82-19-1007BK LE VENOUS DUPLEX LEFTTodd D Rafia PA Work Phone: Start: 70-74-2872KA TRANSVAGINAL NON-OBJoaquínna Kelly Reis MD Work Phone: start: 37-44-8723OD PELVIS NON-OB COMPLETEHanna Kelly Reis MD Work Phone: start: 12-27-2022H/O: sectionS/P sectionSybil Reis MD Work Phone: start: 83-03-9615Szqvmwmmgjt observation [Identifier] in Cervix by Cyto Lori Reis MD Work Phone: start: 27-15-8529Hqqxztndpvy tube (physical object) WERO [place]ILLS Start: 27-74-3788GhgxgvicttJYINCOJ DITTY Start: 53-91-5271FshukcnmuiXZJVFEI DITTY Start: 60-34-5976utfrdozyuc, urethral dilatation, right retrograde pyelogram, right double J ureteral stent placement under fluoroscopic guidanceWERO HILLS Start: 89-64-0044Boeywiix sectionWERO VALENZUELASangon BiotechZain Exploratory laparotomyWERO HILLS Plan of Treatment DateCare ActivityDetailAuthorStart: 59-62-0619Iwxvwojkc for malignant neoplasm of cervixNOMS HealthcareStart: 92-04-0245Oghgegoql for malignant neoplasm of cervixPap SmearBEAR RIVER VALLEY [facility]ITAL HealthcareStart: 00-09-4090njpbhgnvrlTqsoqyvqiiLykyshns:EU BellevueStart: 02-05-2025 End: 72-26-2121Xgrzydf encounter procedureNOMS Castañeda NeurologyStart: 01-13-2025 End: 88-73-5872Bwebgsq encounter nycnenacb34/28/2025 9:00 AM EDT Office Visit [facility] [address] [place] [address] Gracia Hidalgo PA [address] [place] [address] [facility] Jocelin OBGYNStart: 11-25-2024 End: 47-90-0855Zhuabwz encounter procedureNOMS BCP OBStart: 80-88-9815Jbsqfqfff vaccinationBEAR RIVER VALLEY HOSPITAL HealthcareStart: 10-21-2024 End: 10-07-7761Fxmlcnf encounter fgimsryfd74/05/2025 9:30 AM EDT Procedure Visit [facility] [address] [address] Hodan Mckeon, BAND MASTER [address] [place] [address] [facility] 210Comment on above:ArrivedStart: 10-02-2024 End: 37-23-7420Uiumfli encounter /17/2025 10:30 AM EDT Procedure Visit [facility]WS NEUR [address] [place] [address] Hodan Mckeon, BAND MASTER [address] [place] [address] NOMS SWS NEURStart: 08-14-2024 End: 78-90-7510Uledxzu encounter wghplslaz54/29/2025 10:40 AM EDT Office Visit [facility] BCP OB [address] [place] [phone] Hima Gandhi, DO [address] [place] [address] [facility]OM[facility] BCP OBStart: 02-01-8438Nmsbfvkre vaccination Influenza Vaccine (#1)[facility]OMS HealthcareComment on above:Postponed from 11/18/2023 (Patient Refused)Start: 06-19-2024 End: 20-80-7109Jkuvjji encounter gxofpeyom32/03/2025 10:30 AM EDT Procedure Visit [facility] NEUR [address] [facility] [address] [place] [address] Hodan Mckeon, BAND MASTER [address] [place] [address], [place] [address] ArrivedNOMS SWS NEURComment on above: ArrivedStart: 05-29-2024 End: 46-79-5577Jzfctbt encounter jcsccpinh47/13/2025 11:30 AM EDT Procedure Visit [facility] NEUR [address] [facility] [address] [place] [address] Hodan Mckeon, BAND MASTER [address] [address] [facility] SWS NEURStart: 05-13-2024 End: 25-15-6989XK Chest 2 ViewsXR chest 2 views Imaging Routine Right-sided chest pain Expected: 05/13/2024, Expires: 05/13/2025[facility] Work Phone: comment on above:Expected: 05/13/2024, Expires: 05/13/2025Start: 02-29-2024 End: 79-36-4872Qiqpcqa encounter procedureNOMS SWS NEURComment on above:Arrived Start: 11-22-2023 End: 68-98-6133Btwhiyq encounter viknmxxtm49/05/2024 12:00 PM EDT Procedure Visit [facility] S[facility] NEUR [address] [facility] [address] [place] [address] Hodan Mckeon, BAND MASTER [address] [place] [id number] [facility] SWS NEURStart: 42-09-6540Ibsncxnes vaccinationInfluenza Vaccine (#1)[facility] HealthcareStart: 41-67-9830Urafucvoh vaccinationInfluenza Vaccine (#1)NOM[facility] HealthcareComment on above:Postponed from 11/17/2022 (Patient Refused)Start: 07-18-2023 End: 36-15-1899Piallmq encounter qgbwgcjra64/01/2024 11:00 AM EDT Office Visit [facility] BCP OB [address] [place] [phone] Hima Gandhi, DO [address] [place] [address] [facility]OM[facility] BCP OBStart: 05-14-2023 End: 46-45-5220Xukfudl encounter cnhvmeuux19/26/2024 3:30 PM EST Office Visit [facility] [address] [place] [address] Filemon Morataya PA [address] [place] [address] [facility]OMS NB ORTHOStart: 05-02-2023 End: 14-03-2344ZM PelvisUS pelvis Imaging Routine Left lower quadrant abdominal pain Expected: 05/02/2023, Expires: 05/02/2024[facility] Work Phone: comment on above:Expected: 05/02/2023, Expires: 05/02/2024ytology Cervical or vaginal smear or scraping studyPap Smear Pathology and Cytology Routine Well woman exam with routine gynecological exam Ordered: 11/13/2023[facility] Work Phone: comment on above:Ordered: 11/13/2023Human papilloma virus DNA [Presence] in Unspecified specimen by Probe with amplificationHPV DNA probe, amplified Microbiology Routine Well woman exam with routine gynecological exam Ordered: 11/13/2023NONM HealthcareComment on above:Ordered: 11/13/2023 Immunizations Immunization DateImmunizationNotesCare IsmzavqpKlpjitfq16-81-5583jgcothj toxoid, reduced diphtheria toxoid, and acellular pertussis vaccine, adsorbed; Translations:[Adacel (Tdap)]WERO NORMAZain [facility] Payers DatePayer CategoryPayerPolicy [id number] [id number]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 throat, behind the nose and the roof of the mouth. Growth or swelling in the upper part of the throat, just behind the nose (nasopharynx). Damage to the ear caused by a change in pressure. This is called barotrauma. What increases the risk? You are more likely to develop this condition if you: Smoke or are exposed to tobacco smoke. Have an opening in the roof of your mouth (cleft palate). Have acid reflux. Have problems in your body's defense system (immune system). What are the signs or symptoms? Symptoms of this condition include: Ear pain. Fever. Problems with hearing. Being tired. Fluid leaking from the ear. Ringing in the ear. How is this treated? This condition can go away on its own within 3 5 days. But if the condition is caused by germs (bacteria) and does not go away on its own, or if it keeps coming back, your doctor may: Give you antibiotic medicines. Give you medicines for pain. Follow these instructions at home: Take ynva-wee-konqrvy and prescription medicines only as told by your doctor. If you were prescribed an antibiotic medicine, take it as told by your doctor. Do not stop taking it even if you start to feel better. Keep all follow-up visits. Contact a doctor if: You have bleeding from your nose. There is a lump on your neck. You are not feeling better in 5 days. You feel worse instead of better. Get help right away if: You have pain that is not helped with medicine. You have swelling, redness, or pain around your ear. You get a stiff neck. You cannot move part of your face (paralysis). You notice that the bone behind your ear hurts when you touch it. You get a very bad headache. Summary Otitis media means that the middle ear is red, swollen, and full of fluid. This condition usually goes away on its own. If the problem does not go away, treatment may be needed. You may be given medicines to treat the infection or to treat your pain. If you were prescribed an antibiotic medicine, take it as told by your doctor. Do not stop taking it even if you start to feel better. Keep all follow-up visits. This information is not intended to replace advice given to you by your health care provider. Make sure you discuss any questions you have with your health care provider. Document Revised: 06/13/2021 Document Reviewed: 06/13/2021 [employer] Patient Education 2023 [employer]. 08/29/2024 14:20:04 Acute Bronchitis, Adult, Gueg-az-Jevh Acute Bronchitis, Adult Acute bronchitis is when air tubes in the lungs (bronchi) suddenly get swollen. The condition can make it hard for you to breathe. In adults, acute bronchitis usually goes away within 2 weeks. A cough caused by bronchitis may last up to 3 weeks. Smoking, allergies, and asthma can make the conditionworse. What are the causes? Germs that cause cold and flu (viruses). The most common cause of this condition is the virus that causes the common cold. Bacteria. Substances that bother (irritate) the lungs, including: ?Smoke from cigarettes and other types of tobacco. ?Dust and pollen. ?Fumes from chemicals, gases, or burned fuel. ?Indoor or outdoor air pollution. What increases the risk? A weak body's defense system. This is also called the immune system. Any condition that affects your lungs and breathing, such as asthma. What are the signs or symptoms? A cough. Coughing up clear, yellow, or green mucus. Making high-pitched whistling sounds when you breathe, most often when you breathe out (wheezing). Runny or stuffy nose. Having too much mucus in your lungs (chest congestion). Shortness of breath. Body aches. A sore throat. How is this treated? Acute bronchitis may go away over time without treatment. Your doctor may tell you to: Drink more fluids. This will help thin your mucus so it is easier to cough up. Use a device that gets medicine into your lungs (inhaler). Use a vaporizer or a humidifier. These are machines that add water to the air. This helps with coughing and poor breathing. Take a medicine that thins mucus and helps clear it from your lungs. Take a medicine that prevents or stops coughing. It is not common to take an antibiotic medicine for this condition. Follow these instructions at home: Take mceu-nbx-hvsjrxr and prescription medicines only as told by your doctor. Use an inhaler, vaporizer, or humidifier as told by your doctor. Take two teaspoons (10 mL) of honey at bedtime. This helps lessen your coughing at night. Drink enough fluid to keep your pee (urine) pale yellow. Do not smoke or use any products that contain nicotine or tobacco. If you need help quitting, ask your doctor. Get a lot of rest. Return to your normal activities when your doctor says that it is safe. Keep all follow-up visits. How is this prevented? Wash your hands often with soap and water for at least 20 seconds. If you cannot use soap and water, use hand rn perinatal. Avoid contact with people who have cold symptoms. Try not to touch your mouth, nose, or eyes with your hands. Avoid breathing in smoke or chemical fumes. Make sure to get the flu shot every year. Contact a doctor if: Your symptoms do not get better in 2 weeks. You have trouble coughing up the mucus. Your cough keeps you awake at night. You have a fever. Get help right away if: You cough up blood. You have chest pain. You have very bad shortness of breath. You faint or keep feeling like you are going to faint. You have a very bad headache. Your fever or chills get worse. These symptoms may be an emergency. Get help right away. Call your local emergency services (911 int [place] Do not wait to see if the symptoms will go away. Do not drive yourself to the hospital. Summary Acute bronchitis is when air tubes in the lungs (bronchi) suddenly get swollen. In adults, acute bronchitis usually goes away within 2 weeks. Drink more fluids. This will help thin your mucus so it is easier to cough up. Take qysj-nce-gnpijer and prescription medicines only as told by your doctor. Contact a doctor if your symptoms do not improve after 2 weeks of treatment. This information is not intended to replace advice given to you by your health care provider. Make sure you discuss any questions you have with your health care provider. Document Revised: 07/06/2021 Document Reviewed: 07/06/2021 [employer] Patient Education 2023 [employer]. 08/29/2024 14:20:03 Health Risks of Smoking Health Risks of Smoking Smoking tobacco is very bad for your health. Tobacco smoke contains many toxic chemicals that can damage every part of your body. Secondhand smoke can be harmful to those around you. Tobacco or nicotine use can cause many long-term (chronic) diseases. Smoking is difficult to quit because a chemical in tobacco, called nicotine, causes addiction or dependence. When you smoke and inhale, nicotine is absorbed quickly into your bloodstream through yourlungs. Both inhaled and non-inhaled nicotine may be addictive. How can quitting affect me? There are health benefits of quitting smoking. Some benefits happen right away and others take time. Benefits may include: Blood flow, blood pressure, heart rate, and lung capacity may begin to improve. However, any lung damage that has already occurred cannot be repaired. Respiratory symptoms from smoking, such as nasal congestion and cough, may improve over time. Your risk of heart disease, stroke, and cancer is reduced. The overall quality of your health may improve. You may save money, as you will not spend money on tobacco products and may spend less money on smoking-related health issues. What can increase my risk? Smoking harms nearly every organ in the body. People who smoke tobacco have a shorter life expectancy and an increased risk of many serious medical problems. These include: More respiratory infections, such as colds and pneumonia. Cancer. Heart disease. Stroke. Chronic respiratory diseases. Delayed wound healing and increased risk of complications during surgery. Problems with reproduction, , and childbirth, such as infertility, early (premature) births, stillbirths, and defects. Secondhand smoke exposure to children increases the risk of: Sudden infant syndrome (SIDS). Infections in the nose, throat, or airways (respiratory infections). Chronic respiratory symptoms. What actions can I take to quit? Smoking is an addiction that affects both your body and your mind, and long-time habits can be hardto change. Your health care provider can recommend: Nicotine replacement products, such as patches, gum, and nasal sprays. Use these products only as directed. Do not replace cigarette smoking with electronic cigarettes, which are commonly called e-cigarettes. The safety of e-cigarettes is not known, and some may contain harmful chemicals. Programs and community resources, which may include group support, education, or talk therapy. Prescription medicines to help reduce cravings. A combination of two or more quit methods, which may increase the success of quitting. Where to find support Follow the recommendations from your health care provider about support groups and other assistance. You can also visit: [place]. Department of Health and Human Services: www.smokefree.gov [employer]: www.freedomfromsmoking.org Indian [employer] Association: www.heart.org Where to find more information Centers for Disease Control and Prevention: www.cdc.gov World Health Organization: www.who.int Summary Smoking tobacco is very bad for your health. Tobacco smoke contains many toxic chemicals that can damage every part of the body. Smoking is difficult to quit because a chemical in tobacco, called nicotine, causes addiction or dependence. There are immediate and long-term health benefits of quitting smoking. A combination of two or more quit methods may increase the success of quitting. This information is not intended to replace advice given to you by your health care provider. Make sure you discuss any questions you have with your health care provider. Document Revised: 03/07/2022 Document Reviewed: 03/07/2022 [employer] Patient Education 2023 [employer]. 08/29/2024 14:20:02 Steps to Quit Smoking Steps to Quit Smoking Smoking tobacco is the leading cause of preventable . It can affect almost every organ in the body. Smoking puts you and those around you at risk for developing many serious chronic diseases. Quitting smoking can be very challenging. Do not get discouraged if you are not successful the first time. Some people need to make many attempts to quit before they achieve long-term success. Do your best to stick to your quit plan, and talk with your health care provider if you have any questionsor concerns. How do I get ready to quit? When you decide to quit smoking, create a plan to help you succeed. Before you quit: Pick a date to quit. Set a date within the next 2 weeks to give you time to prepare. Write down the reasons why you are quitting. Keep this list in places where you will see it often. Tell your family, friends, and co-workers that you are quitting. Support from people you are close to can make quitting easier. Talk with your health care provider about your options for quitting smoking. Find out what treatment options are covered by your health insurance. Identify people, places, things, and activities that make you want to smoke (triggers). Avoid them. What first steps can I take to quit smoking? Throw away all cigarettes at home, at work, and in your car. Throw away smoking accessories, such as ashtrays and lighters. Clean your car. Make sure to empty the ashtray. Clean your home, including curtains and carpets. What strategies can I use to quit smoking? Talk with your health care provider about combining strategies, such as taking medicines while you are also receiving in-person counseling. Using these two strategies together makes you more likely to succeed in quitting than if you used either strategy on its own. If you are or , talk with your health care provider about finding counseling or other support strategies to quit smoking. Do not take medicine to help you quit smoking unless your health care provider tells you to. Quit right away Quit smoking completely, instead of gradually reducing how much you smoke over a period of time. Stopping smoking right away may be more successful than gradually quitting. Attend in-person counseling to help you build problem-solving skills. You are more likely to succeed in quitting if you attend counseling sessions regularly. Even short sessions of 10 minutes can be effective. Take medicine You may take medicines to help you quit smoking. Some medicines require a prescription. You can also purchase enod-uqq-rbjozzu medicines. Medicines may have nicotine in them to replace the nicotine in cigarettes. Medicines may: Help to stop cravings. Help to relieve withdrawal symptoms. Your health care provider may recommend: Nicotine patches, gum, or lozenges. Nicotine inhalers or sprays. Non-nicotine medicine that you take by mouth. Find resources Find resources and support systems that can help you quit smoking and remain smoke-free after you quit. These resources are most helpful when you use them often. They include: Online chats with a counselor. Telephone quitlines. Printed self-help materials. Support groups or group counseling. Text messaging programs. Mobile phone apps or applications. Use apps that can help you stick to your quit plan by providing reminders, tips, and encouragement. Examples of free services include Quit Guide from the CDC and smokefree.gov What can I do to make it easier to quit? Reach out to your family and friends for support and encouragement. Call telephone quitlines, such as 3-099-KDYU-NOW, reach out to support groups, or work with a counselor for support. Ask people who smoke to avoid smoking around you. Avoid places that trigger you to smoke, such as bars, parties, or smoke-break areas at work. Spend time with people who do not smoke. Lessen the stress in your life. Stress can be a smoking trigger for some people. To lessen stress, try: ?Exercising regularly. ?Doing deep-breathing exercises. ?Doing yoga. ?Meditating. What benefits will I see if I quit smoking? Over time, you should start to see positive results, such as: Improved sense of smell and taste. Decreased coughing and sore throat. Slower heart rate. Lower blood pressure. Clearer and healthier skin. The ability to breathe more easily. Fewer sick days. Summary Quitting smoking can be very challenging. Do not get discouraged if you are not successful the first time. Some people need to make many attempts to quit before they achieve long-term success. When you decide to quit smoking, create a plan to help you succeed. Quit smoking right away, not slowly over a period of time. Find resources and support systems that can help you quit smoking and remain smoke-free after you quit. This information is not intended to replace advice given to you by your health care provider. Make sure you discuss any questions you have with your health care provider. Document Revised: 02/24/2022 Document Reviewed: 02/24/2022 [employer] Patient Education 2023 [employer]. Follow Up Care 08/29/2024 12:57:50 With:Sybil Reis MD Address: [address] [place] [address]- When: Unknown [facility] 06-13-2025 NotePatient Education ENT Otitis Media, Adult Otitis media is a condition in which the middle ear is red and swollen (inflamed) and full of fluid. The middle ear is the part of the ear that contains bones for hearing as well as air that helps send sounds to the brain. The condition usually goes away on its own. What are the causes? This condition is caused by a blockage in the eustachian tube. This tube connects the middle ear tothe back of the nose. It normally allows air into the middle ear. The blockage is caused by fluid or swelling. Problems that can cause blockage include: ??? A cold or infection that affects the nose, mouth, or throat. ??? Allergies. ??? An irritant, such as tobacco smoke. ??? Adenoids that have become large. The adenoids are soft tissue located in the back of the throat, behind the nose and the roof of the mouth. ??? Growth or swelling in the upper part of the throat, just behind the nose (nasopharynx). ??? Damage to the ear caused by a change in pressure. This is called barotrauma. What increases the risk? You are more likely to develop this condition if you: ??? Smoke or are exposed to tobacco smoke. ??? Have an opening in the roof of your mouth (cleft palate). ??? Have acid reflux. ??? Have problems in your body's defense system (immune system). What are the signs or symptoms? Symptoms of this condition include: ??? Ear pain. ??? Fever. ??? Problems with hearing. ??? Being tired. ??? Fluid leaking from the ear. ??? Ringing in the ear. How is this treated? This condition can go away on its own within 3?5 days. But if the condition is caused by germs (bacteria) and does not go away on its own, or if it keeps coming back, your doctor may: ??? Give you antibiotic medicines. ??? Give you medicines for pain. Follow these instructions at home: ??? Take zscm-rsk-wudlumv and prescription medicines only as told by your doctor. ??? If you were prescribed an antibiotic medicine, take it as told by your doctor. Do not stop taking it even if you start to feel better. ??? Keep all follow-up visits. Contact a doctor if: ??? You have bleeding from your nose. ??? There is a lump on your neck. ??? You are not feeling better in 5 days. ??? You feel worse instead of better. Get help right away if: ??? You have pain that is not helped with medicine. ??? You have swelling, redness, or pain around your ear. ??? You get a stiff neck. ??? You cannot move part of your face (paralysis). ??? You notice that the bone behind your ear hurts when you touch it. ??? You get a very bad headache. Summary ??? Otitis media means that the middle ear is red, swollen, and full of fluid. ??? This condition usually goes away on its own. ??? If the problem does not go away, treatment may be needed. You may be given medicines to treat the infection or to treat your pain. ??? If you were prescribed an antibiotic medicine, take it as told by your doctor. Do not stop taking it even if you start to feel better. ??? Keep all follow-up visits. This information is not intended to replace advice given to you by your health care provider. Make sure you discuss any questions you have with your health care provider. Document Revised: 06/13/2021 Document Reviewed: 06/13/2021 [employer] Patient Education ? 2023 [employer]. Pulmonary Medicine Acute Bronchitis, Adult Acute bronchitis is when air tubes in the lungs (bronchi) suddenly get swollen. The condition can make it hard for you to breathe. In adults, acute bronchitis usually goes away within 2 weeks. A cough caused by bronchitis may last up to 3 weeks. Smoking, allergies, and asthma can make the conditionworse. What are the causes? Germs that cause cold and flu (viruses). The most common cause of this condition is the virus that causes the common cold. ??? Bacteria. ??? Substances that bother (irritate) the lungs, including: ? Smoke from cigarettes and other types of tobacco. ? Dust and pollen. ? Fumes from chemicals, gases, or burned fuel. ? Indoor or outdoor air pollution. What increases the risk? A weak body's defense system. This is also called the immune system. ??? Any condition that affects your lungs and breathing, such as asthma. What are the signs or symptoms? A cough. ??? Coughing up clear, yellow, or green mucus. ??? Making high-pitched whistling sounds when you breathe, most often when you breathe out (wheezing). ??? Runny or stuffy nose. ??? Having too much mucus in your lungs (chest congestion). ??? Shortness of breath. ??? Body aches. ??? A sore throat. How is this treated? Acute bronchitis may go away over time without treatment. Your doctor may tell you to: ??? Drink more fluids. This will help thin your mucus so it is easier to cough up. ??? Use a device that gets medicine into your lungs (inhaler). ??? Use a vaporizer or (more content not included)...[facility] 07-17-2024 History of Present illness Narrative* Maria Elena Espinoza LPN - 07/17/2024 10:40 AM EDT Reason for Appointment: Patient ID: Flores Houser is a 38 y.o. female who presents for ER Follow-up Patient presents today for Consult appointment. MEDICATIONS No current outpatient medications ALLERGIES Allergies Allergen Reactions Cranberry Extract Other Reaction(s): Unknown Cephalexin Rash and Hives PROBLEMS Active Ambulatory Problems Diagnosis Date Noted Chronic cystitis 11/02/2022 Fatigue 11/02/2022 Migraine without aura and without status migrainosus, not intractable ([facility] 11/02/2022 Morbid obesity ([facility]) 11/02/2022 Hydronephrosis 11/02/2022 Nocturia 11/02/2022 History of kidney disease 11/02/2022 with history of section, antepartum 04/02/2020 Stress incontinence 11/02/2022 Tobacco smoking affecting 03/29/2020 Ureteral stricture 11/02/2022 S/P section 12/27/2022 Intractable chronic migraine without aura and without status migrainosus (CMS/HCC) 07/17/2023 Blurring of visual image of right eye 07/17/2023 Major depressive disorder, recurrent 09/26/2023 Urinary tract infection 09/26/2023 Varicose veins of both lower extremities with pain 10/18/2023 Resolved Ambulatory Problems Diagnosis Date Noted No Resolved Ambulatory Problems Past Medical History: Diagnosis Date Anxiety Cluster headache Depression (CMS/HCC) Headache Hepatitis C (CMS/HCC) Kidney tumor Obesity (BMI 30-39.9) Tobacco use HISTORY PAST MEDICAL HISTORY SOCIAL HISTORY Past Medical History: Diagnosis Date Anxiety Cluster headache Depression (CMS/HCC) Fatigue Headache Hepatitis C (CMS/HCC) Kidney tumor Obesity (BMI 30-39.9) Tobacco use Social History Tobacco Use Smoking status: Never Passive exposure: Yes Smokeless tobacco: Current Tobacco comments: Smokes 5 or less cigarettes/day ; after 31-60 minutes of waking up. Thinking about quitting. Vaping Use Vaping status: Never Used Substance Use Topics Alcohol use: Not Currently Comment: Alcohol: 1-2 drinks/monthly or less/ >6 drinks or more less than monthly Drug use: Never FAMILY HISTORY Family History Problem Relation Name Age of Onset Stroke Father Edsyed No Known Problems Sister 2 Heart disease Maternal Grandmother Heart disease Maternal Grandfather Edsyed Stroke Maternal Grandfather Edsyed No Known Problems Daughter 2 No Known Problems Son SURGICAL HISTORY Past Surgical History: Procedure Laterality Date SECTION, CLASSIC 08/2013 SECTION, CLASSIC 07/2020 SECTION, LOW TRANSVERSE 12/19/2022 IR NEPHROURETERAL STENT PLACEMENT Urinary stent placement OTHER SURGICAL HISTORY KIDNEY PROCEDURES SALPINGECTOMY 12/19/2022 REVIEW OF SYSTEMS Review of Systems: Review of Systems Constitutional: Negative. HENT: Negative. Eyes: Negative. Respiratory: Negative. Cardiovascular: Negative. Gastrointestinal: Negative. Genitourinary: Negative. Musculoskeletal: Negative. Skin: Negative. Neurological: Negative. All other systems reviewed and are negative. Hematological: Negative. Endocrine: Negative. Allergic/Immunologic: Negative. OBJECTIVE Objective: Physical Exam Constitutional: Appearance: Normal appearance. She is well-developed. Cardiovascular: Rate and Rhythm: Normal rate and regular rhythm. Pulmonary: Effort: Pulmonary effort is normal. Breath sounds: Normal breath sounds. Abdominal: General: Bowel sounds are normal. There is no distension. Palpations: Abdomen is soft. Tenderness: There is no abdominal tenderness. There is no guarding or rebound. Musculoskeletal: General: No swelling. Normal range of motion. Right lower leg: No edema. Left lower leg: No edema. Neurological: Mental Status: She is alert and oriented to person, place, and time. Skin: General: Skin is warm and dry. Psychiatric: Mood and Affect: Mood normal. Behavior: Behavior normal. Vitals and nursing note reviewed. Exam conducted with a etched circuit processor present. Vitals: Estimated body mass index is 33.47 kg/m as calculated from the following: Height as of 05/13/24: 5' 8 . Weight as of this encounter: 220 lb 1.9 oz. BP: 110/78 No LMP recorded. ASSESSMENT & PLAN ICD-10-CM 1. Adnexal cyst N94.9 POCT , urine manually resulted POCT urinalysis dipstick manually resulted Patient voiced she went to [facility] for pelvic pain and CT showed possible ovarian cyst. Informed patient that ultrasound is best practice to assess cyst. Patient voiced that pain has since resolved and patient will reach out to office in the if pain returns and nursing will be able to order ultrasoundto assess for pelvic pain/ ovarian cyst. Also, if patient has irregular heavy or abnormal cycles she may also receive an order for ultrasound. Discussed weight management with patient and she voiced she has been dieting and only able to lose 25 pounds since delivering last child. Patient will start Metformin and will RTC in 4 weeks to startAdipex. Documented by Maria Elena Espinoza LPN on behalf of: Hima Gandhi DO documented in this encounterMid [facility] [id number] Hospital Discharge instructions Patient Education 07/09/2024 14:53:28 Ovarian Cyst, Nvtv-qu-Irnq Ovarian Cyst An ovarian cyst is a fluid-filled sac on an ovary. Most of these cysts go away on their own and arenot cancer. Some cysts need treatment. What are the causes? Ovarian hyperstimulation syndrome. Some medicines may lead to this problem. Polycystic ovarian syndrome (PCOS). Problems with body chemicals (hormones) can lead to this condition. The normal menstrual cycle. What increases the risk? Being overweight or very overweight. Taking medicines to increase your chance of getting . Using some types of control. Smoking. What are the signs or symptoms? Many ovarian cysts do not cause symptoms. If you get symptoms, you may have: Pain or pressure in the area between the hip bones. Pain in the lower belly. Pain during sex. Swelling in the lower belly. Periods that are not regular. Pain with periods. How is this treated? Many ovarian cysts go away on their own without treatment. If you need treatment, it may include: Medicines for pain. Fluid taken out of the cyst. The cyst being taken out. control pills or other medicines. Surgery to remove the ovary. Follow these instructions at home: Take ahjl-wco-yoqtyol and prescription medicines only as told by your doctor. Ask your doctor if you should avoid driving or using machines while you are taking your medicine. Get exams and Pap tests as told by your doctor. Return to your normal activities when your doctor says that it is safe. Do not smoke or use any products that contain nicotine or tobacco. If you need help quitting, ask your doctor. Keep all follow-up visits. Contact a doctor if: Your periods: ?Are late. ?Are not regular. ?Stop. ?Are painful. You have pain in the area between your hip bones, and the pain does not go away. You feel pressure on your bladder. You have trouble peeing. You feel full, or your belly hurts, swells, or bloats. You gain or lose weight without trying, or you are less hungry than normal. You feel pain and pressure in your back. You feel pain and pressure in the area between your hip bones. You think you may be . Get help right away if: You have pain in your belly that is very bad or gets worse. You have pain in the area between your hip bones, and the pain is very bad or gets worse. You cannot eat or drink without vomiting. You get a fever or chills all of a sudden. Your period is a lot heavier than usual. Summary An ovarian cyst is a fluid-filled sac on an ovary. Some cysts may cause problems and need treatment. Most of these cysts go away on their own. This information is not intended to replace advice given to you by your health care provider. Make sure you discuss any questions you have with your health care provider. Document Revised: 08/06/2020 Document Reviewed: 08/12/2020 [employer] Patient Education 2023 [employer]. 07/09/2024 14:53:28 Abdominal Pain, Adult, Nuaw-mo-Ikze Abdominal Pain, Adult Many things can cause belly (abdominal) pain. In most cases, belly pain is not a serious problem and can be watched and treated at home. But in some cases, it can be serious. Your doctor will try to find the cause of your belly pain. Follow these instructions at home: Medicines Take oxqq-pzf-poimydv and prescription medicines only as told by your doctor. Do not take medicines that help you poop (laxatives) unless told by your doctor. General instructions Watch your belly pain for any changes. Tell your doctor if the pain gets worse. Drink enough fluid to keep your pee (urine) pale yellow. Contact a doctor if: Your belly pain changes or gets worse. You have very bad cramping or bloating in your belly. You vomit. Your pain gets worse with meals, after eating, or with certain foods. You have trouble pooping or have watery poop for more than 2 3 days. You are not hungry, or you lose weight without trying. You have signs of not getting enough fluid or water (dehydration). These may include: ?Dark pee, very little pee, or no pee. ?Cracked lips or dry mouth. ?Feeling sleepy or weak. You have pain when you pee or poop. Your belly pain wakes you up at night. You have blood in your pee. You have a fever. Get help right away if: You cannot stop vomiting. Your pain is only in one part of your belly, like on the right side. You have bloody or black poop, or poop that looks like tar. You have trouble breathing. You have chest pain. These symptoms may be an emergency. Get help right away. Call 911. Do not wait to see if the symptoms will go away. Do not drive yourself to the hospital. This information is not intended to replace advice given to you by your health care provider. Make sure you discuss any questions you have with your health care provider. Document Revised: 12/20/2022 Document Reviewed: 12/20/2022 [employer] Patient Education 2023 [employer]. Follow Up Care 07/09/2024 12:03:15 With:Hima GANDHI Address: [address] , [place] [address]- Business (1) When:07/12/2024 14:39:58 Comments:Call for diagnosis based follow up With:Sybil Reis Address: [address] [place] [address]- Business (1) When:07/12/2024 14:39:39 Comments:Call for diagnosis based follow up [facility] 04-23-2025 NoteED Patient Education Note Gastroenterology Abdominal Pain, Adult Many things can cause belly (abdominal) pain. In most cases, belly pain is not a serious problem and can be watched and treated at home. But in some cases, it can be serious. Your doctor will try to find the cause of your belly pain. Follow these instructions at home: Medicines ??? Take ylbv-kzs-uqqkwoz and prescription medicines only as told by your doctor. ??? Do not take medicines that help you poop (laxatives) unless told by your doctor. General instructions ??? Watch your belly pain for any changes. Tell your doctor if the pain gets worse. ??? Drink enough fluid to keep your pee (urine) pale yellow. Contact a doctor if: ??? Your belly pain changes or gets worse. ??? You have very bad cramping or bloating in your belly. ??? You vomit. ??? Your pain gets worse with meals, after eating, or with certain foods. ??? You have trouble pooping or have watery poop for more than 2?3 days. ??? You are not hungry, or you lose weight without trying. ??? You have signs of not getting enough fluid or water (dehydration). These may include: ? Dark pee, very little pee, or no pee. ? Cracked lips or dry mouth. ? Feeling sleepy or weak. ??? You have pain when you pee or poop. ??? Your belly pain wakes you up at night. ??? You have blood in your pee. ??? You have a fever. Get help right away if: ??? You cannot stop vomiting. ??? Your pain is only in one part of your belly, like on the right side. ??? You have bloody or black poop, or poop that looks like tar. ??? You have trouble breathing. ??? You have chest pain. These symptoms may be an emergency. Get help right away. Call 911. ??? Do not wait to see if the symptoms will go away. ??? Do not drive yourself to the hospital. This information is not intended to replace advice given to you by your health care provider. Make sure you discuss any questions you have with your health care provider. Document Revised: 12/20/2022 Document Reviewed: 12/20/2022 [employer] Patient Education ? 2023 Business Lab. Obstetrics and Gynecology Ovarian Cyst An ovarian cyst is a fluid-filled sac on an ovary. Most of these cysts go away on their own and arenot cancer. Some cysts need treatment. What are the causes? Ovarian hyperstimulation syndrome. Some medicines may lead to this problem. ??? Polycystic ovarian syndrome (PCOS). Problems with body chemicals (hormones) can lead to this condition. ??? The normal menstrual cycle. What increases the risk? Being overweight or very overweight. ??? Taking medicines to increase your chance of getting . ??? Using some types of control. ??? Smoking. What are the signs or symptoms? Many ovarian cysts do not cause symptoms. If you get symptoms, you may have: ??? Pain or pressure in the area between the hip bones. ??? Pain in the lower belly. ??? Pain during sex. ??? Swelling in the lower belly. ??? Periods that are not regular. ??? Pain with periods. How is this treated? Many ovarian cysts go away on their own without treatment. If you need treatment, it may include: ??? Medicines for pain. ??? Fluid taken out of the cyst. ??? The cyst being taken out. ??? control pills or other medicines. ??? Surgery to remove the ovary. Follow these instructions at home: ??? Take qtri-eoe-kwjsnit and prescription medicines only as told by your doctor. ??? Ask your doctor if you should avoid driving or using machines while you are taking your medicine. ??? Get exams and Pap tests as told by your doctor. ??? Return to your normal activities when your doctor says that it is safe. ??? Do not smoke or use any products that contain nicotine or tobacco. If you need help quitting, ask your doctor. ??? Keep all follow-up visits. Contact a doctor if: ??? Your periods: ? Are late. ? Are not regular. ? Stop. ? Are painful. ??? You have pain in the area between your hip bones, and the pain does not go away. ??? You feel pressure on your bladder. ??? You have trouble peeing. ??? You feel full, or your belly hurts, swells, or bloats. ??? You gain or lose weight without trying, or you are less hungry than normal. ??? You feel pain and pressure in your back. ??? You feel pain and pressure in the area between your hip bones. ??? You think you may be . Get help right away if: ??? You have pain in your belly that is very bad or gets worse. ??? You have pain in the area between your hip bones, and the pain is very bad or gets worse. ??? You cannot eat or drink without vomiting. ??? You get a fever or chills all of a sudden. ??? Your period is a lot heavier than usual. Summary ??? An ovarian cyst is a fluid-filled sac on an ovary. ??? Some cysts may cause problems and need treatment. ??? Most of these cysts go away on their own. Th (more content not included)...[facility]04-23-2025 Evaluation + Plan noteExtracted from:Title:ED NoteAuthor:Eugenio CORREIA, Trent Turner. Date:07/09/24 Lower abdominal pain (R10.30 : Lower abdominal pain, unspecified) Orders: ketorolac, 30 mg = 1 mL, Injection, IV Push, Once, Stop date 07/09/24 12:48:00 EDT, STAT, Start date 07/09/24 12:48:00 EDT, 07/09/24 12:48:00 EDT naproxen, 500 mg = 1 tab(s), Oral, BID, PRN for pain, # 20 tab(s), Refills(s) 0, Pharmacy: [id number], 172, cm, 07/09/24 12:23:00 EDT, Height/Length Dosing, 101.4, kg, 07/09/24 12:23:00 EDT, Weight Dosing ondansetron, 4 mg = 2 mL, Injection, IV Push, Once, Stop date 07/09/24 12:48:00 EDT, STAT, Start date 07/09/24 12:48:00 EDT, 07/09/24 12:48:00 EDT ondansetron, 4 mg = 1 tab(s), Oral, q8hr, PRN Nausea/Vomiting, # 12 tab(s), Refills(s) 0, Pharmacy:[id number], 172, cm, 07/09/24 12:23:00 EDT, Height/Length Dosing, 101.4, kg, 07/09/24 12:23:00 EDT, Weight Dosing Sodium Chloride 0.9% intravenous solution, 1,000 mL, Soln-IV, IV, Once, Stop date 07/09/24 12:48:00EDT, STAT, Start date 07/09/24 12:48:00 EDT, Infuse over 61, minute(s) Basic Metabolic Panel Beta hCG Qual CBC w/ Auto Diff CT Abdomen/Pelvis w/ Contrast eGFR Extra Blue Tube Hepatic Function Panel Lipase Level Saline Lock Insert [facility] 04-03-2025 Hospital Discharge instructions Patient Education 06/19/2024 14:01:14 Nonspecific Chest Pain, Adult, Bzjg-kh-Lsbt Nonspecific Chest Pain Chest pain can be caused by many different conditions. Some causes of chest pain can be life-threatening. These will require treatment right away. Serious causes of chest pain include: Heart attack. A tear in the body's main blood vessel. Redness and swelling (inflammation) around your heart. Blood clot in your lungs. Other causes of chest pain may not be so serious. These include: Heartburn. Anxiety or stress. Damage to bones or muscles in your chest. Lung infections. Chest pain can feel like: Pain or discomfort in your chest. Crushing, pressure, aching, or squeezing pain. Burning or tingling. Dull or sharp pain that is worse when you move, cough, or take a deep breath. Pain or discomfort that is also felt in your back, neck, jaw, shoulder, or arm, or pain that spreads to any of these areas. It is hard to know whether your pain is caused by something that is serious or something that is not so serious. So it is important to see your doctor right away if you have chest pain. Follow these instructions at home: Medicines Take cduv-ckv-mmesiey and prescription medicines only as told by your doctor. If you were prescribed an antibiotic medicine, take it as told by your doctor. Do not stop taking the antibiotic even if you start to feel better. Lifestyle Rest as told by your doctor. Do not use any products that contain nicotine or tobacco, such as cigarettes, e- cigarettes, and chewing tobacco. If you need help quitting, ask your doctor. Do not drink alcohol. Make lifestyle changes as told by your doctor. These may include: ?Getting regular exercise. Ask your doctor what activities are safe for you. ?Eating a heart-healthy diet. A diet and nutrition consultant (dietitian) can help you to learn healthy eating options. ?Staying at a healthy weight. ?Treating diabetes or high blood pressure, if needed. ?Lowering your stress. Activities such as yoga and relaxation techniques can help. General instructions Pay attention to any changes in your symptoms. Tell your doctor about them or any new symptoms. Avoid any activities that cause chest pain. Keep all follow-up visits as told by your doctor. This is important. You may need more testing if your chest pain does not go away. Contact a doctor if: Your chest pain does not go away. You feel depressed. You have a fever. Get help right away if: Your chest pain is worse. You have a cough that gets worse, or you cough up blood. You have very bad (severe) pain in your belly (abdomen). You pass out (faint). You have either of these for no clear reason: ?Sudden chest discomfort. ?Sudden discomfort in your arms, back, neck, or jaw. You have shortness of breath at any time. You suddenly start to sweat, or your skin gets clammy. You feel sick to your stomach (nauseous). You throw up (vomit). You suddenly feel lightheaded or dizzy. You feel very weak or tired. Your heart starts to beat fast, or it feels like it is skipping beats. These symptoms may be an emergency. Do not wait to see if the symptoms will go away. Get medical help right away. Call your local emergency services (911 in the [place] Do not drive yourself to the hospital. Summary Chest pain can be caused by many different conditions. The cause may be serious and need treatment right away. If you have chest pain, see your doctor right away. Follow your doctor's instructions for taking medicines and making lifestyle changes. Keep all follow-up visits as told by your doctor. This includes visits for any further testing if your chest pain does not go away. Be sure to know the signs that show that your condition has become worse. Get help right away if you have these symptoms. This information is not intended to replace advice given to you by your health care provider. Make sure you discuss any questions you have with your health care provider. Document Revised: 01/18/2023 Document Reviewed: 01/18/2023 [employer] Patient Education 2023 [employer]. Follow Up Care 06/19/2024 11:58:30 With:Sybil Reis Address: [place] [place] [address]- Business (1) When:06/22/2024 14:00:44 Comments:Call to schedule a follow-up appointment with your primary care provider. Use Robaxin as needed forpain along with Tylenol. Robaxin can make you tired, therefore do not drive or operate heavy machinery with use. Return to the ED with any new or worsening symptoms. [facility] 04-03-2025 NoteED Patient Education Note Gastroenterology Nonspecific Chest Pain Chest pain can be caused by many different conditions. Some causes of chest pain can be life-threatening. These will require treatment right away. Serious causes of chest pain include: ??? Heart attack. ??? A tear in the body's main blood vessel. ??? Redness and swelling (inflammation) around your heart. ??? Blood clot in your lungs. Other causes of chest pain may not be so serious. These include: ??? Heartburn. ??? Anxiety or stress. ??? Damage to bones or muscles in your chest. ??? Lung infections. Chest pain can feel like: ??? Pain or discomfort in your chest. ??? Crushing, pressure, aching, or squeezing pain. ??? Burning or tingling. ??? Dull or sharp pain that is worse when you move, cough, or take a deep breath. ??? Pain or discomfort that is also felt in your back, neck, jaw, shoulder, or arm, or pain that spreads to any of these areas. It is hard to know whether your pain is caused by something that is serious or something that is not so serious. So it is important to see your doctor right away if you have chest pain. Follow these instructions at home: Medicines ??? Take zqwj-crq-hnnbomx and prescription medicines only as told by your doctor. ??? If you were prescribed an antibiotic medicine, take it as told by your doctor. Do not stop taking the antibiotic even if you start to feel better. Lifestyle ??? Rest as told by your doctor. ??? Do not use any products that contain nicotine or tobacco, such as cigarettes, e-cigarettes, andchewing tobacco. If you need help quitting, ask your doctor. ??? Do not drink alcohol. ??? Make lifestyle changes as told by your doctor. These may include: ? Getting regular exercise. Ask your doctor what activities are safe for you. ? Eating a heart-healthy diet. A diet and nutrition consultant (dietitian) can help you to learn healthy eating options. ? Staying at a healthy weight. ? Treating diabetes or high blood pressure, if needed. ? Lowering your stress. Activities such as yoga and relaxation techniques can help. General instructions ??? Pay attention to any changes in your symptoms. Tell your doctor about them or any new symptoms. ??? Avoid any activities that cause chest pain. ??? Keep all follow-up visits as told by your doctor. This is important. You may need more testing if your chest pain does not go away. Contact a doctor if: ??? Your chest pain does not go away. ??? You feel depressed. ??? You have a fever. Get help right away if: ??? Your chest pain is worse. ??? You have a cough that gets worse, or you cough up blood. ??? You have very bad (severe) pain in your belly (abdomen). ??? You pass out (faint). ??? You have either of these for no clear reason: ? Sudden chest discomfort. ? Sudden discomfort in your arms, back, neck, or jaw. ??? You have shortness of breath at any time. ??? You suddenly start to sweat, or your skin gets clammy. ??? You feel sick to your stomach (nauseous). ??? You throw up (vomit). ??? You suddenly feel lightheaded or dizzy. ??? You feel very weak or tired. ??? Your heart starts to beat fast, or it feels like it is skipping beats. These symptoms may be an emergency. Do not wait to see if the symptoms will go away. Get medical help right away. Call your local emergency services (911 in the [place] Do not drive yourself to the hospital. Summary ??? Chest pain can be caused by many different conditions. The cause may be serious and need treatment right away. If you have chest pain, see your doctor right away. ??? Follow your doctor's instructions for taking medicines and making lifestyle changes. ??? Keep all follow-up visits as told by your doctor. This includes visits for any further testing if your chest pain does not go away. ??? Be sure to know the signs that show that your condition has become worse. Get help right away if you have these symptoms. This information is not intended to replace advice given to you by your health care provider. Make sure you discuss any questions you have with your health care provider. Document Revised: 01/18/2023 Document Reviewed: 01/18/2023 [employer] Patient Education ? 2023 [employer].[facility] 06-19-2024 Evaluation + Plan noteExtracted from:Title:ED NoteAuthor:Jen Sol PA-CDate:06/19/24 Chest wall pain (R07.89: Oth er chest pain) Strain of left shoulder (S46.912A: Strain of unspecified muscle, fascia and tendon at shoulder and upper arm level, left arm, initial encounter) Orders: ketorolac, 15 mg = 1 mL, Injection, IV Push, Once, Stop date 06/19/24 12:39:00 EDT, STAT, Start date 06/19/24 12:39:00 EDT, 06/19/24 12:39:00 EDT methocarbamol, 1,000 mg = 2 tab(s), Oral, QID, PRN as needed for pain, # 8 tab(s), Refills(s) 0, Pharmacy: [facility], 172, cm, 06/19/24 12:07:00 EDT, Height/Length Dosing, 106, kg, 06/19/24 12:07:00 EDT, Weight Dosing Basic Metabolic Panel CBC w/ Auto Diff D-Dimer ED Cardiac Monitoring eGFR Extra SST Tube Oxygen Saturation Oxygen Therapy PT & PTT Saline Lock Insert Troponin 0 Hr. Troponin 1 Hr. XR Chest Single View [facility] 04-03-2025 History of Present illness Narrative* Hodan Mckeon NP - 06/19/2024 10:30 AM EDT Images from the original note were not included. CHIEF COMPLAINT REASON FOR VISIT : migraine botox HPI: Flores Houser is a 38 y.o. female who presents for repeat botox injections. She missed her last appointment and is over due for botox. She reports she noticed two days after her appointment she missed she could tell botox wore off. Prior to botox She had 4-5 migraines a week. She averaged 16-20 migraine days a month. Duration of migraines 24 hours. She experiences blurry vision, black spots, head pressure, nausea, light sensitivity, sound sensitivity, eye twitches, aura and dizziness. Pain is severe. She has experienced migraines for the last 10 years. Medications tried: tylenol, ibuprofen, nurtec(worked great), excedrin, flexeril, ubrelvy. She has kidney disease and limits her to a lot of medications that are kidney metabolized like topamax or zonegran, NSAIDs. A lot of medications are both liver and kidney metabolized. Post botox she has 1-2 migraines a month. CURRENT MEDICATIONS: ALLERGIES/DISCONTINUE MEDICATIONS Current Outpatient Medications Medication Instructions onabotulinumtoxinA (Botox 200u vial IJ Soln) 200 units injection Inject up to 200 units intramuscular into face and neck muscles every 90 days for chronic migraines. Allergies Allergen Reactions Cranberry Extract Other Reaction(s): Unknown Cephalexin Rash and Hives There are no discontinued medications. PAST MEDICAL HISTORY: SURGICAL/SOCIAL/FAMILY HISTORY DEPRESSION SCREEN: Past Medical History: Diagnosis Date Anxiety Cluster headache Depression (CMS/HCC) Fatigue Headache Hepatitis C (CMS/HCC) Kidney tumor Obesity (BMI 30-39.9) Tobacco use Past Surgical History: Procedure Laterality Date SECTION, CLASSIC 08/2013 SECTION, CLASSIC 07/2020 SECTION, LOW TRANSVERSE 12/19/2022 IR NEPHROURETERAL STENT PLACEMENT Urinary stent placement OTHER SURGICAL HISTORY KIDNEY PROCEDURES SALPINGECTOMY 12/19/2022 Social History Tobacco Use Smoking status: Never Passive exposure: Yes Smokeless tobacco: Current Tobacco comments: Smokes 5 or less cigarettes/day ; after 31-60 minutes of waking up. Thinking about quitting. Vaping Use Vaping status: Never Used Substance Use Topics Alcohol use: Not Currently Comment: Alcohol: 1-2 drinks/monthly or less/ >6 drinks or more less than monthly Drug use: Never Family History Problem Relation Name Age of Onset Stroke Father Edsyed No Known Problems Sister 2 Heart disease Maternal Grandmother Heart disease Maternal Grandfather Edward Stroke Maternal Grandfather Edward No Known Problems Daughter 2 No Known Problems Son Depression: Not on file REVIEW OF SYMPTOMS: Review of Systems OBJECTIVE: 05/13/2024 10:15 AM 02/29/2024 9:30 AM 11/22/2023 12:10 PM Vitals BMI 34.91 kg/m2 34.97 kg/m2 33.45 kg/m2 BSA (m2) 2.23 m2 2.23 m2 2.19 m2 Systolic 114 110 118 Diastolic 80 70 80 Heart Rate 78 SpO2 98 % Temp 97.3 F Height (in) 5' 8 5' 8 5' 8 Weight (lb) 229.6 230 220 Visit Report Report EXAM: Neurological Exam PROCEDURE: Procedure - Therapeutic injection, Botulinum Toxin, Chronic Migraine Indication Chronic Migraine Identification The patient was positively identified by name and date of . Consent The procedure was explained to the patient. This included indications; possible complications, including at least bleeding, infection, and ; and ill effects from not undergoing the procedure, including at least inadequate treatment and all possible complications therefrom. Informed consent forthe procedure was obtained and witnessed. Any further questions were answered during this visit. Site Prep The areas to be injected were sterilized with 70% isopropanol. Specialty pharmacy Lot # [id number] Dilution 200 units diluted into 4mL = 5 units per 0.1mL Procedure Procerus 5 units Chapter Relations Administrator, L 5 units Chapter Relations Administrator, R 5 units Frontalis, L 10 units (2 sites) Frontalis, R 10 units (2 sites) Temporalis, L 20 units (4 sites) Temporalis, R .20 units (4 sites) Occipitalis, L 15 units (3 sites) Occipitalis, R 15 units (3 sites) Paraspinalis cervicis, L 10 units (2 sites) Paraspinalis cervicis, R 10 units (2 sites) Trapezius, L 15 units (3 sites) Trapezius, L 15 units (3 sites) Other 45 units (9 sites, see below) TOTAL UNITS INJECTED 200 WASTED 0 The remaining 45 units were injected into various other facial or cervical muscles whose spasmed state was likely to trigger migraines, as determined by clinical examination during the procedure. Disposition The patient tolerated the procedure well. Post-op care was discussed. The patient is aware that duration of action is 3 months, and that delay in reinjection often results in recurrence of migraines Patient Instructions The patient was instructed to return should any bleeding or fluid be seen from the puncture site; for fever; numbness; weakness; or any other unexpected symptoms. Also instructed to follow up in 2-2.5 months to assess effectiveness and need for further treatment. Assessment Chronic migraine without aura, intractable, without status migrainosus - G43.719 Procedure Codes 39509 Chemodenervation of muscles innervated by facial, trigeminal, cervical spinal and accessory nerves: Modifiers: 50 J0585 Botulinum toxin a per unit, Units: 200.00 Follow Up 2.5 months appointment; 3 months BTX ASSESSMENT AND PLAN: Diagnoses and all orders for this visit: Intractable chronic migraine without aura and without status migrainosus (CMS/HCC) - Rimegepant Sulfate (Nurtec) 75 MG tablet dispersible; Take 1 tablet by mouth 1 (one) time if needed (onset of migraine may take up to 16 pills per month) - onabotulinumtoxinA (Botox) injection 200 Units 38 year old female here for repeat botox injections. Botox reduces migraines by greater than 50% from 20 migraine days a month to two per month. She has reported kidney disease and should not be on NSAIDs, certain seizure medications. She is limited in what she can take so botox is definitely safer option. documented in this encounterMid [facility] [id number] Radiology [facility] [address] [place] [address] Ultrasound Report Signed Patient: Flores Houser MR#: [id number] : 1985 Acct:[id number] Age/Sex: 38 / F ADM Date: 5 Loc: [facility] Room: Type: [facility] Attending Dr: Gail Ruby BAND MASTER-C Ordering Provider: Gail Ruby APRN Date of Service: 06/17/24 US/US venous duplex LE RT: I83.811 - Varicose veins of right lower extremity with pain Copies to: Gail Ruby APRN~ Right lower extremity full functional venous duplex examination Indication for study: Painful varicose veins status post venous intervention PROCEDURE: Color-flow duplex scanning is used to interrogate the venous anatomy of the right lower extremity. The right common femoral vein, femoral vein, and popliteal vein show good compressibility, color-flow, and augmentation. There is no reflux with Valsalva at the saphenofemoral junction. There is been successful closure of varicosities noted in the distal posterior thigh and proximal calf which are now incompressible. US/US venous duplex LE RT IMPRESSION: No evidence for deep vein thrombosis. Successful closure of the artery varicosities with no significant residual venous valvular incompetence. Impression dictated by: Enio Leung M.D.06/17/2024 3:34 PM Dictation Location: [id number] Tech: Dionne Colvin Transcribed By: ADILENE 06/17/24 153 Dictated By: Enio Leung MD 06/17/24 153 Signed By: 06/17/24 1534 [facility] Work Phone: [phone] 372-320202-25-2025 History of Present illness Narrative* Sybil Reis MD - 05/13/2024 10:00 AM EST Images from the original note were not included. Subjective Patient ID: Flores Houser is a 38 y.o. female who presents for Chest Pain (R side, sharp pain ). HPI Pt here for acute visit. C/o months of intermittent chest pain. Describes as right sided pain that is located just above thebreast area and on the side. Denies change with breathing. Denies TTP. No overlying skin changes. No injury or trauma to the area. No OTC tx. Does have a h/o anxiety. Her entire chest will feel tight during anxious periods, not usually one sided. Review of Systems General: Denies fever, chills, fatigue, VYAS or weight loss/gain CV: Denies palpitations or swelling in legs Resp: denies cough, SOB or wheezing GI: Denies abd pain/n/v/c/d Skin: Denies rash Neuro: Denies LH or dizziness Objective Blood pressure 114/80, pulse 78, temperature 97.3 F, height 5' 8 , weight 229 lb 9.6 oz, last menstrual period 04/21/2024, SpO2 98%, not currently . Body mass index is 34.91 kg/m . Physical Exam General: alert & oriented, NAD Head: NC/AT Oral Cavity: MMM Skin: warm, dry Heart: RRR, No m/r/g, S1S2 nml Lungs: CTA b/l Abdomen: soft, ND/NT, BS wnl Musculoskeletal: normal gait Extremities: no clubbing, cyanosis or edema Neurological: nonfocal Psych: mood/affect full range Assessment/Plan Flores was seen today for chest pain. Diagnoses and all orders for this visit: Right-sided chest pain (Primary) - XR chest 2 views; Future Discussed sx tx and concerning sx to monitor for. Discussed possible need for further imaging Anxiety Stable, continue to monitor. No change in regimen. Obesity (BMI 30.0-34.9) - continue to monitor weight BMI 34.0-34.9,adult documented in this encounterMid [facility] [id number] Evaluation note* Diagnosis Onset Date Resolution Status Admit Date Varicose veins of both lower extremities with pain acuteJan2024 9:47amVenous hypertension of left lower extremityacute March 27, 2024 9:47am [facility] Work Phone: [phone]) 988-679712-13-2024 History of Present illness Narrative* Hodan Mckeon, BAND MASTER - 02/29/2024 9:30 AM EST Images from the original note were not included. CHIEF COMPLAINT REASON FOR VISIT : migraine botox HPI: Flores Houser is a 38 y.o. female who presents for repeat botox injections. She only has had 5 migraines in the last three months post her prior botox injections. She was having 4-5 migraines a week. She was averaging 16-20 migraine days a month prior to botox treatment. Duration of migraines 24 hours. She experiences blurry vision, black spots, head pressure,nausea, light sensitivity, sound sensitivity, eye twitches, aura and dizziness. She has a MRI scheduled. Pain is severe. She has experienced migraines for the last 10 years. Migraines have worsened and progressed the last four years. Medications tried: tylenol, ibuprofen, nurtec(worked great), excedrin, flexeril, ubrelvy. She has kidney disease and limits her to a lot of medications that are kidney metabolized like topamax or zonegran, NSAIDs. A lot of medications are both liver and kidney metabolized. CURRENT MEDICATIONS: ALLERGIES/DISCONTINUE MEDICATIONS Current Outpatient Medications Medication Instructions albuterol HFA 90 mcg/act inhaler 2 puffs, Every 4 hours benzonatate (TESSALON) 200 mg, Oral, 3 times daily PRN cyclobenzaprine (Flexeril) 10 MG tablet TAKE 1 TABLET BY MOUTH THREE TIMES DAILY NEEDED for SPASM metFORMIN XR (GLUCOPHAGE-XR) 500 mg, Oral, Daily with evening meal, Do not crush, chew, or split. Nurtec 75 mg, Oral, Once as needed onabotulinumtoxinA (Botox 200u vial IJ Soln) 200 units injection Inject up to 200 units intramuscular into face and neck muscles every 90 days for chronic migraines. Allergies Allergen Reactions Cranberry Extract Other Reaction(s): Unknown Cephalexin Rash and Hives Medications Discontinued During This Encounter Medication Reason Rimegepant Sulfate (Nurtec) 75 MG tablet dispersible Reorder PAST MEDICAL HISTORY: SURGICAL/SOCIAL/FAMILY HISTORY DEPRESSION SCREEN: Past Medical History: Diagnosis Date Anxiety Cluster headache Depression (CMS/HCC) Fatigue Headache Hepatitis C (CMS/HCC) Kidney tumor Obesity (BMI 30-39.9) Tobacco use Past Surgical History: Procedure Laterality Date SECTION, CLASSIC 08/2013 SECTION, CLASSIC 07/2020 SECTION, LOW TRANSVERSE 12/19/2022 IR NEPHROURETERAL STENT PLACEMENT Urinary stent placement OTHER SURGICAL HISTORY KIDNEY PROCEDURES SALPINGECTOMY 12/19/2022 Social History Tobacco Use Smoking status: Never Passive exposure: Yes Smokeless tobacco: Current Tobacco comments: Smokes 5 or less cigarettes/day ; after 31-60 minutes of waking up. Thinking about quitting. Vaping Use Vaping status: Never Used Substance Use Topics Alcohol use: Not Currently Comment: Alcohol: 1-2 drinks/monthly or less/ >6 drinks or more less than monthly Drug use: Never Family History Problem Relation Name Age of Onset Stroke Father Edsyed No Known Problems Sister 2 Heart disease Maternal Grandmother Heart disease Maternal Grandfather Edsyed Stroke Maternal Grandfather Edsyed No Known Problems Daughter 2 No Known Problems Son Depression: Not on file REVIEW OF SYMPTOMS: Review of Systems Constitutional: Negative for chills, fatigue and fever. HENT: Negative for tinnitus. Eyes: Negative for photophobia. Respiratory: Negative for shortness of breath. Cardiovascular: Negative for chest pain. Gastrointestinal: Negative for nausea and vomiting. Genitourinary: Negative for frequency. Musculoskeletal: Negative for back pain, gait problem and neck pain. Neurological: Negative for dizziness, tremors, weakness, light-headedness, numbness and headaches. Psychiatric/Behavioral: Negative. OBJECTIVE: 11/22/2023 12:10 PM 11/13/2023 10:24 AM 10/18/2023 12:23 PM Vitals BMI 33.45 kg/m2 33.45 kg/m2 33.79 kg/m2 BSA (m2) 2.19 m2 2.19 m2 2.2 m2 Systolic 118 118 118 Diastolic 80 74 74 Height (in) 5' 8 5' 8 Weight (lb) 220 220 222.2 Visit Report Report Report EXAM: Neurological Exam Mental Status Awake, alert and oriented to person, place and time. Oriented to person, place and time. Speech is normal. Language is fluent with no aphasia. Motor Increased muscle tone. Increased cervical/neck paraspinal muscles. Gait Casual gait is normal including stance, stride, and arm swing. PROCEDURE: Procedure - Therapeutic injection, Botulinum Toxin, Chronic Migraine Indication Chronic Migraine Identification The patient was positively identified by name and date of . Consent The procedure was explained to the patient. This included indications; possible complications, including at least bleeding, infection, and ; and ill effects from not undergoing the procedure, including at least inadequate treatment and all possible complications therefrom. Informed consent forthe procedure was obtained and witnessed. Any further questions were answered during this visit. Site Prep The areas to be injected were sterilized with 70% isopropanol. Specialty pharmacy Lot # [id number] Dilution 200 units diluted into 4mL = 5 units per 0.1mL Procedure Qsygqied2lzxac Chapter Relations Administrator, S8uurgn Chapter Relations Administrator, I4aulus Frontalis, H55jpdwq(2 sites) Frontalis, M28zvpdd(2 sites) Temporalis, L 20 units (4 sites) Temporalis, R.20units(4 sites) Occipitalis, O43cgyfx(3 sites) Occipitalis, T72sdstg(3 sites) Paraspinalis cervicis, W61ggmpi(2 sites) Paraspinalis cervicis, V42ouarh(2 sites) Trapezius, T37hrcit(3 sites) Trapezius, Q36hwona(3 sites) Xiuog40tpbpa(9 sites, see below) TOTAL UNITS [id number] WASTED0 The remaining 45 units were injected into various other facial or cervical muscles whose spasmed state was likely to trigger migraines, as determined by clinical examination during the procedure. Disposition The patient tolerated the procedure well. Post-op care was discussed. The patient is aware that duration of action is 3 months, and that delay in reinjection often results in recurrence of migraines Patient Instructions The patient was instructed to return should any bleeding or fluid be seen from the puncture site; for fever; numbness; weakness; or any other unexpected symptoms. Also instructed to follow up in 2-2.5 months to assess effectiveness and need for further treatment. Assessment Chronic migraine without aura, intractable, without status migrainosus - G43.719 Procedure Codes 18591 Chemodenervation of neck muscles, bilateral: Modifiers: 50 49698 Destroy Nerve, Face Muscle, Modifiers: 50 , 51 J0585 Botulinum toxin a per unit, Units: 200.00 Follow Up 2.5 months appointment; 3 months BTX ASSESSMENT AND PLAN: Diagnoses and all orders for this visit: Intractable chronic migraine without aura and without status migrainosus (CMS/HCC) - Rimegepant Sulfate (Nurtec) 75 MG tablet dispersible; Take 75 mg by mouth 1 (one) time if needed (1 po onset of migraine up to 16 times a month) 38 year old female here for repeat botox injections for chronic migraines. She has experienced greater than 50% reduction in migraines with botox treatment. Prior to botox she was having 16-20 migraine days a month. She has tried gepants, muscle relaxer. She has severe kidney disease which limits use of a lot of medications and botox is safer option. She does carry a lot of cervical/neck muscle spasm which is trigger to migraines. documented in this encounterMid [facility] [id number] Hospital Discharge instructions Patient Education 01/23/2024 15:31:07 Otitis Media With Effusion, Adult Otitis Media With Effusion, Adult Otitis media with effusion (OME) is inflammation and fluid (effusion) in the middle ear without having an ear infection. The middle ear is the space behind the eardrum. The middle ear is connected tothe back of the throat by a narrow tube (eustachian tube). Normally the eustachian tube drains fluid out of the middle ear. A swollen eustachian tube can become blocked and cause fluid to collect in the middle ear. OME often goes away without treatment. Sometimes OME can lead to hearing problems and recurrent acute ear infections (acute otitis media). These conditions may require treatment. What are the causes? OME is caused by a blocked eustachian tube. This can result from: Allergies. Upper respiratory infections. Enlarged adenoids. The adenoids are areas of soft tissue located high in the back of the throat, behind the nose and the roof of the mouth. They are part of the body's natural defense system (immune system). Rapid changes in pressure, like when an airplane is descending or during scuba diving. In some cases, the cause of this condition is not known. What are the signs or symptoms? Common symptoms of this condition include: A feeling of fullness in your ear. Decreased hearing in the affected ear. Fluid draining into the ear canal. Pain in the ear. In some cases, there are no symptoms. How is this diagnosed? A health care provider can diagnose OME based on signs and symptoms of the condition. Your providerwill also do a physical exam to check for fluid behind the eardrum. During the exam, your health care provider will use an instrument called an otoscope to look in your ear. Your health care provider may do other tests, such as: A hearing test. A tympanogram. This is a test that shows how well the eardrum moves in response to air pressure in the ear canal. It provides a graph for your health care provider to review. A pneumatic otoscopy. This is a test to check how your eardrum moves in response to changes in pressure. It is done by squeezing a small amount of air into the ear. How is this treated? Treatment for OME depends on the cause of the condition and the severity of symptoms. The first step is often waiting to see if the fluid drains on its own in a few weeks. Home care treatment may include: Dbai-ttn-gmsibry pain relievers. A warm, moist cloth placed over the ear. Severe cases may require a procedure to insert tubes in the ears (tympanostomy tubes) to drain the fluid. Follow these instructions at home: Take ydte-jix-sgwcjcq and prescription medicines only as told by your health care provider. Keep all follow-up visits. Contact a health care provider if: You have pain that gets worse. Hearing in your affected ear gets worse. You have fluid draining from your ear canal. You have dizziness. You develop a fever. Get help right away if: You develop a severe headache. You completely lose hearing in the affected ear. You have bleeding from your ear canal. You have sudden and severe pain in your ear. These symptoms may represent a serious problem that is an emergency. Do not wait to see if the symptoms will go away. Get medical help right away. Call your local emergency services (911 in the [place] Do not drive yourself to the hospital. Summary Otitis media with effusion (OME) is inflammation and fluid (effusion) in the middle ear without having an ear infection. A swollen eustachian tube can become blocked and cause fluid to collect in the middle ear. Treatment for OME depends on the cause of the condition and the severity of symptoms. Many times, treatment is not needed because the fluid drains on its own in a few weeks. Sometimes OME can lead to hearing problems and recurrent acute ear infections (acute otitis media),which may require treatment. This information is not intended to replace advice given to you by your health care provider. Make sure you discuss any questions you have with your health care provider. Document Revised: 06/30/2021 Document Reviewed: 06/30/2021 [employer] Patient Education 2023 [employer]. 01/23/2024 15:31:05 Otitis Media, Adult, Xxlq-fz-Lnly Otitis Media, Adult Otitis media is a condition in which the middle ear is red and swollen (inflamed) and full of fluid. The middle ear is the part of the ear that contains bones for hearing as well as air that helps send sounds to the brain. The condition usually goes away on its own. What are the causes? This condition is caused by a blockage in the eustachian tube. This tube connects the middle ear tothe back of the nose. It normally allows air into the middle ear. The blockage is caused by fluid or swelling. Problems that can cause blockage include: A cold or infection that affects the nose, mouth, or throat. Allergies. An irritant, such as tobacco smoke. Adenoids that have become large. The adenoids are soft tissue located in the back of the throat, behind the nose and the roof of the mouth. Growth or swelling in the upper part of the throat, just behind the nose (nasopharynx). Damage to the ear caused by a change in pressure. This is called barotrauma. What increases the risk? You are more likely to develop this condition if you: Smoke or are exposed to tobacco smoke. Have an opening in the roof of your mouth (cleft palate). Have acid reflux. Have problems in your body's defense system (immune system). What are the signs or symptoms? Symptoms of this condition include: Ear pain. Fever. Problems with hearing. Being tired. Fluid leaking from the ear. Ringing in the ear. How is this treated? This condition can go away on its own within 3 5 days. But if the condition is caused by germs (bacteria) and does not go away on its own, or if it keeps coming back, your doctor may: Give you antibiotic medicines. Give you medicines for pain. Follow these instructions at home: Take piua-awl-wrozvnb and prescription medicines only as told by your doctor. If you were prescribed an antibiotic medicine, take it as told by your doctor. Do not stop taking it even if you start to feel better. Keep all follow-up visits. Contact a doctor if: You have bleeding from your nose. There is a lump on your neck. You are not feeling better in 5 days. You feel worse instead of better. Get help right away if: You have pain that is not helped with medicine. You have swelling, redness, or pain around your ear. You get a stiff neck. You cannot move part of your face (paralysis). You notice that the bone behind your ear hurts when you touch it. You get a very bad headache. Summary Otitis media means that the middle ear is red, swollen, and full of fluid. This condition usually goes away on its own. If the problem does not go away, treatment may be needed. You may be given medicines to treat the infection or to treat your pain. If you were prescribed an antibiotic medicine, take it as told by your doctor. Do not stop taking it even if you start to feel better. Keep all follow-up visits. This information is not intended to replace advice given to you by your health care provider. Make sure you discuss any questions you have with your health care provider. Document Revised: 06/13/2021 Document Reviewed: 06/13/2021 [employer] Patient Education 2023 [employer]. Follow Up Care 01/23/2024 15:01:09 With:Sybil Reis MD Address: [address] [place] [address]- When: Unknown [facility] 11-06-2024 NotePatient Education ENT Otitis Media With Effusion, Adult Otitis media with effusion (OME) is inflammation and fluid (effusion) in the middle ear without having an ear infection. The middle ear is the space behind the eardrum. The middle ear is connected tothe back of the throat by a narrow tube (eustachian tube). Normally the eustachian tube drains fluid out of the middle ear. A swollen eustachian tube can become blocked and cause fluid to collect in the middle ear. OME often goes away without treatment. Sometimes OME can lead to hearing problems and recurrent acute ear infections (acute otitis media). These conditions may require treatment. What are the causes? OME is caused by a blocked eustachian tube. This can result from: ??? Allergies. ??? Upper respiratory infections. ??? Enlarged adenoids. The adenoids are areas of soft tissue located high in the back of the throat, behind the nose and the roof of the mouth. They are part of the body's natural defense system (immune system). ??? Rapid changes in pressure, like when an airplane is descending or during scuba diving. In some cases, the cause of this condition is not known. What are the signs or symptoms? Common symptoms of this condition include: ??? A feeling of fullness in your ear. ??? Decreased hearing in the affected ear. ??? Fluid draining into the ear canal. ??? Pain in the ear. In some cases, there are no symptoms. How is this diagnosed? A health care provider can diagnose OME based on signs and symptoms of the condition. Your providerwill also do a physical exam to check for fluid behind the eardrum. During the exam, your health care provider will use an instrument called an otoscope to look in your ear. Your health care provider may do other tests, such as: ??? A hearing test. ??? A tympanogram. This is a test that shows how well the eardrum moves in response to air pressurein the ear canal. It provides a graph for your health care provider to review. ??? A pneumatic otoscopy. This is a test to check how your eardrum moves in response to changes in pressure. It is done by squeezing a small amount of air into the ear. How is this treated? Treatment for OME depends on the cause of the condition and the severity of symptoms. The first step is often waiting to see if the fluid drains on its own in a few weeks. Home care treatment may include: ??? Ndzo-zis-vxdgpyx pain relievers. ??? A warm, moist cloth placed over the ear. Severe cases may require a procedure to insert tubes in the ears (tympanostomy tubes) to drain the fluid. Follow these instructions at home: ??? Take rfri-atb-iizxbpj and prescription medicines only as told by your health care provider. ??? Keep all follow-up visits. Contact a health care provider if: ??? You have pain that gets worse. ??? Hearing in your affected ear gets worse. ??? You have fluid draining from your ear canal. ??? You have dizziness. ??? You develop a fever. Get help right away if: ??? You develop a severe headache. ??? You completely lose hearing in the affected ear. ??? You have bleeding from your ear canal. ??? You have sudden and severe pain in your ear. These symptoms may represent a serious problem that is an emergency. Do not wait to see if the symptoms will go away. Get medical help right away. Call your local emergency services (911 in the [place] Do not drive yourself to the hospital. Summary ??? Otitis media with effusion (OME) is inflammation and fluid (effusion) in the middle ear withouthaving an ear infection. ??? A swollen eustachian tube can become blocked and cause fluid to collect in the middle ear. ??? Treatment for OME depends on the cause of the condition and the severity of symptoms. ??? Many times, treatment is not needed because the fluid drains on its own in a few weeks. ??? Sometimes OME can lead to hearing problems and recurrent acute ear infections (acute otitis media), which may require treatment. This information is not intended to replace advice given to you by your health care provider. Make sure you discuss any questions you have with your health care provider. Document Revised: 06/30/2021 Document Reviewed: 06/30/2021 [employer] Patient Education ? 2023 [employer]. Otitis Media, Adult Otitis media is a condition in which the middle ear is red and swollen (inflamed) and full of fluid. The middle ear is the part of the ear that contains bones for hearing as well as air that helps send sounds to the brain. The condition usually goes away on its own. What are the causes? This condition is caused by a blockage in the eustachian tube. This tube connects the middle ear tothe back of the nose. It normally allows air into the middle ear. The blockage is caused by fluid or swelling. Problems that can cause blockage include: ??? A cold or infection that affects (more content not included)...[facility]10-04-2024 Hospital Discharge instructions Patient Education 12/21/2023 15:14:11 RICE Therapy for Routine Care of Injuries, Lkts-ud-Uanb RICE Therapy for Routine Care of Injuries Many injuries can be cared for with rest, ice, compression, and elevation (RICE therapy). This includes: Resting the injured body part. Putting ice on the injury. Putting pressure (compression) on the injury. Raising the injured part (elevation). Using RICE therapy can help to lessen pain and swelling. Supplies needed: Ice. Plastic bag. Towel. Elastic bandage. Pillow or pillows to raise your injured body part. How to care for your injury with RICE therapy Rest Try to rest the injured part of your body. You can go back to your normal activities when your doctor says it is okay to do them and when you can do them without pain. If you rest the injury too much, it may not heal as well. Some injuries heal better with early movement instead of resting for too long. Ask your doctor if you should do exercises to help your injuryget better. Ice If told, put ice on the injured area. To do this: ?Put ice in a plastic bag. ?Place a towel between your skin and the bag. ?Leave the ice on for 20 minutes, 2 3 times a day. ?Take off the ice if your skin turns bright red. This is very important. If you cannot feel pain, heat, or cold, you have a greater risk of damage to the area. Do not put ice on your bare skin. Use ice for as many days as your doctor tells you to use it. Compression Put pressure on the injured area. This can be done with an elastic bandage. If this type of bandagehas been put on your injury: Follow instructions on the package the bandage came in about how to use it. Do not wrap the bandage too tightly. ?Wrap the bandage more loosely if part of your body beyond the bandage is blue, swollen, cold, painful, or loses feeling. Take off the bandage and put it on again every 3 4 hours or as told by your doctor. See your doctor if the bandage seems to make your problems worse. Elevation Raise the injured area above the level of your heart while you are sitting or lying down. Follow these instructions at home: If your symptoms get worse or last a long time, make a follow-up appointment with your doctor. You may need to have imaging tests, such as X-rays or an MRI. If you have imaging tests, ask how to get your results when they are ready. Return to your normal activities when your doctor says that it is safe. Keep all follow-up visits. Contact a doctor if: You keep having pain and swelling. Your symptoms get worse. Get help right away if: You have sudden, very bad pain at your injury or lower than your injury. You have redness or more swelling around your injury. You have tingling or numbness at your injury or lower than your injury, and it does not go away when you take off the bandage. Summary Many injuries can be cared for using rest, ice, compression, and elevation (RICE therapy). You can go back to your normal activities when your doctor says it is okay and when you can do themwithout pain. Put ice on the injured area as told by your doctor. Get help if your symptoms get worse or if you keep having pain and swelling. This information is not intended to replace advice given to you by your health care provider. Make sure you discuss any questions you have with your health care provider. Document Revised: 12/23/2020 Document Reviewed: 12/23/2020 [employer] Patient Education 2023 [employer]. 12/21/2023 15:14:11 Ankle Sprain, Phase II Rehab Ankle Sprain, Phase II Rehab An ankle sprain is an injury to tissue that connects bone to bone (a ligament) in the ankle. Ankle sprains can cause stiffness, loss of motion, and loss of strength. Ask your health care provider which exercises are safe for you. Do exercises exactly as told by your provider and adjust them as directed. It is normal to feel mild stretching, pulling, tightness, or discomfort as you do these exercises. Stop right away if you feel sudden pain or your pain gets worse. Do not begin these exercises until told by your provider. Stretching and xhoyp-wi-ykmqsp exercises These exercises warm up your muscles and joints. They can improve the movement and flexibility of your lower leg and ankle. They also help to relieve pain and stiffness. Standing gastroc stretch This exercise is also called a standing calf (gastroc) stretch. 1.Stand with your hands against a wall. 2.Extend your left / right leg behind you. Bend your front knee slightly. Your heels should be on the floor. 3.Keeping your heels on the floor and your back knee straight, shift your weight toward the wall. You should feel a gentle stretch in the back of your lower leg (calf). 4.Hold this position for seconds. Repeat times. Complete this exercise times a day. Standing soleus stretch This exercise is also called a standing calf (soleus) stretch. 1.Stand with your hands against a wall. 2.Extend your left / right leg behind you. Bend your front knee slightly. Both of your heels shouldbe on the floor. 3.Keeping your heels on the floor, bend your back knee and shift your weight slightly over your back leg. You should feel a gentle stretch deep in your calf. 4.Hold this position for seconds. Repeat times. Complete this exercise times a day. Strengthening exercises These exercises build strength and endurance in your lower leg. Endurance is the ability to use your muscles for a long time, even after they get tired. Heel walking This exercise is sometimes called dorsiflexion. 1.Walk on your heels for seconds or steps. Keep your toes as high as possible. Repeat times. Complete this exercise times a day. Balance exercises These exercises improve your balance and the reaction and control of your ankle. They help to improve stability. Multi-angle lunge 1.Stand with your feet together. 2.Take a step forward with your left / right leg. Shift your weight onto that leg. Your back heel will come off the floor and your back toes will stay in place. 3.Push off your front leg to return your front foot to the starting position next to your other foot. 4.Repeat to the side, to the back, and any other directions as told by your provider. Repeat times. Complete this exercise times a day. Single leg stand If this exercise is too easy, you can try it with your eyes closed or while standing on a pillow. 1.Without shoes, stand near a railing or in a doorframe. Hold on to the railing or doorframe as needed. Let loose of the railing or doorframe as you are able. 2.Stand on your left / right foot. Keep your big toe down on the floor and try to keep your arch lifted. 3.Hold this position for seconds. Repeat times. Complete this exercise times a day. Ankle inversion and eversion This exercise is also called foot rotation with a balance board. It uses a balance board to rotate the foot and ankle inward (inversion) and outward (eversion). Ask your provider where you can get a balance board or how you can make one. 1.Stand on a non-carpeted surface near a countertop or wall. 2.Step onto the balance board so your feet are hip width apart. 3.Keep your feet in place. Keep your upper body and hips steady. 4.Using only your feet and ankles to move the board, do these exercises as told by your provider: Tip the board side to side as far as you can, switching between tipping to the left and tipping to the right. Tip the board so it silently taps the floor. Do not let the board hit the floor with force. From time to time, pause to hold a steady midway position, with neither the right nor the left sides touching the ground. Tip the board side to side so it does not hit the floor at all. From time to time, pause to hold a steady midway position. Repeat times. Complete this exercise times a day. Ankle plantar flexion and dorsiflexion This exercise is also called foot flexion with a balance board. It uses a balance board to push thefoot downward and away from the leg (plantar flexion) or upward and toward the leg (dorsiflexion). Ask your provider where you can get a balance board or how you can make one. 1.Stand on a non-carpeted surface near a countertop or wall. 2.Step onto the balance board so your feet are hip width apart. 3.Keep your feet in place. Keep your upper body and hips steady. 4.Using only your feet and ankles to move the board, do one or both of these exercises as told by your provider: Tip the board forward and backward so it silently taps the floor. Do not let the board hit the floor with force. From time to time, pause to hold a steady position midway between touching the floor in front and touching the floor in back. Tip the board forward and backward so it does not hit the floor at all. From time to time, pause tohold a steady position in the middle. Repeat times. Complete this exercise times a day. This information is not intended to replace advice given to you by your health care provider. Make sure you discuss any questions you have with your health care provider. Document Revised: 12/27/2022 Document Reviewed: 12/27/2022 [employer] Patient Education 2023 [employer]. 12/21/2023 15:14:11 Ankle Sprain, Phase I Rehab Ankle Sprain, Phase I Rehab An ankle sprain is an injury to the tissues that connect bone to bone (ligaments) in your ankle. Ankle sprains can cause stiffness, loss of motion, and loss of strength. Ask your health care providerwhich exercises are safe for you. Do exercises exactly as told by your provider and adjust them as directed. It is normal to feel mild stretching, pulling, tightness, or discomfort as you do these exercises. Stop right away if you feel sudden pain or your pain gets worse. Do not begin these exercises until told by your provider. Stretching and ncgmu-nm-lwhjbw exercises These exercises warm up your muscles and joints. They can improve the movement and flexibility of your lower leg and ankle. They also help to relieve pain and stiffness. Gastroc and soleus stretch This exercise is also called a calf stretch. It stretches the muscles in the back of the lower leg.These muscles are the gastrocnemius, or gastroc, and the soleus. 1.Sit on the floor with your left / right leg extended. 2.Loop a belt or towel around the ball of your left / right foot. The ball of your foot is on the walking surface, right under your toes. 3.Keep your left / right ankle and foot relaxed and keep your knee straight. Use the belt or towel to pull your foot toward you. You should feel a gentle stretch behind your calf or knee in your gastroc muscle. 4.Hold this position for seconds, then release to the starting position. 5.Repeat the exercise with your knee bent. You can put a pillow or a rolled bath towel under your knee to support it. You should feel a stretch deep in your calf in the soleus muscle or at your Achilles tendon. Repeat times. Complete this exercise times a day. Ankle alphabet 1.Sit with your left / right leg supported at the lower leg. Do not rest your foot on anything. Make sure your foot has room to move freely. 2.Think of your left / right foot as a paintbrush. Move your foot to trace each letter of the alphabet in the air. Keep your hip and knee still while you trace. Make the letters as large as you can without feeling discomfort. 3.Trace every letter from A to Z. Repeat times. Complete this exercise times a day. Strengthening exercises These exercises build strength and endurance in your ankle and lower leg. Endurance is the ability to use your muscles for a long time, even after they get tired. Ankle dorsiflexion 1.Secure a rubber exercise band or tube to an object, such as a table leg, that will stay still when the band is pulled. Secure the other end around your left / right foot. 2.Sit on the floor facing the object, with your left / right leg extended. The band or tube should be slightly tense when your foot is relaxed. 3.Slowly bring your foot toward you, bringing the top of your foot toward your valdes (dorsiflexion),and pulling the band tighter. 4.Hold this position for seconds. 5.Slowly return your foot to the starting position. Repeat times. Complete this exercise times a day. Ankle plantar flexion 1.Sit on the floor with your left / right leg extended. 2.Loop a rubber exercise tube or band around the ball of your left / right foot. The ball of your foot is on the walking surface, right under your toes. Hold the ends of the band or tube in your hands. The band or tube should be slightly tense when your foot is relaxed. 3.Slowly point your foot and toes downward to tilt the top of your foot away from your valdes (plantar flexion). 4.Hold this position for seconds. 5.Slowly return your foot to the starting position. Repeat times. Complete this exercise times a day. Ankle eversion 1.Sit on the floor with your legs straight out in front of you. 2.Loop a rubber exercise band or tube around the ball of your left / right foot. The ball of your foot is on the walking surface, right under your toes. Hold the ends of the band in your hands or secure the band to a stable object. The band or tube should be slightly tense when your foot is relaxed. 3.Slowly push your foot outward, away from your other leg (eversion). 4.Hold this position for seconds. 5.Slowly return your foot to the starting position. Repeat times. Complete this exercise times a day. This information is not intended to replace advice given to you by your health care provider. Make sure you discuss any questions you have with your health care provider. Document Revised: 12/27/2022 Document Reviewed: 12/27/2022 [employer] Patient Education 2023 [employer] 12/21/2023 15:14:11 Ankle Sprain, Mxuh-gp-Mnce Ankle Sprain An ankle sprain is a stretch or tear in a ligament in your ankle. Ligaments are tissues that connect bones to each other. An ankle sprain can happen when: The ankle rolls outward. This is called an inversion sprain. The ankle rolls inward. This is called an eversion sprain. What are the causes? An ankle sprain is caused by rolling or twisting your ankle. What increases the risk? You are more likely to get an ankle sprain if you play sports. What are the signs or symptoms? Pain in your ankle. Swelling. Bruising. Bruises may form right after you sprain your ankle or 1 2 days later. Trouble standing or walking. How is this treated? An ankle sprain may be treated with: A brace or splint. This is used to keep the ankle from moving until it heals. An elastic bandage (dressing). This is used to support the ankle. Crutches. Pain medicine. Surgery. This may be needed if the sprain is very bad. Physical therapy. This can help you move your ankle better. Follow these instructions at home: If you have a brace or a splint that can be taken off: Wear the brace or splint as told by your doctor. Take it off only as told by your doctor. Check the skin around the brace or splint every day. Tell your doctor if you see problems. Loosen the brace or splint if your toes: ?Tingle. ?Become numb. ?Turn cold and blue. Keep the brace or splint clean and dry. If the brace or splint is not waterproof: ?Do not let it get wet. ?Cover it with a watertight covering when you take a bath or a shower. If you have an elastic dressing: Take it off to shower or bathe. Adjust it if it feels too tight. Loosen the dressing if your foot: ?Tingles. ?Becomes numb. ?Turns cold and blue. Managing pain, stiffness, and swelling If told, put ice on the affected area. ?If you have a removable brace or splint, take it off as told by your doctor. ?Put ice in a plastic bag. ?Place a towel between your skin and the bag. ?Leave the ice on for 20 minutes, 2 3 times a day. If your skin turns bright red, take off the ice right away to prevent skin damage. The risk of damage is higher if you cannot feel pain, heat, or cold. Move your toes often. Raise your ankle above the level of your heart while you are sitting or lying down. General instructions Take ifnc-efy-okefpjc and prescription medicines only as told by your doctor. Do not smoke or use any products that contain nicotine or tobacco. If you need help quitting, ask your doctor. Rest your ankle. Use crutches to support your body weight. Do not use your injured leg to support your body weight until your doctor says that you can. Ask your doctor when it is safe to drive if you have a brace or splint on your ankle. Contact a doctor if: Your bruises or swelling get worse all of a sudden. Your pain does not get better after you take medicine. Get help right away if: Your foot or toes are numb or blue. You have very bad pain that gets worse. This information is not intended to replace advice given to you by your health care provider. Make sure you discuss any questions you have with your health care provider. Document Revised: 12/06/2022 Document Reviewed: 12/06/2022 [employer] Patient Education 2023 [employer]. Follow Up Care 12/21/2023 14:20:12 With:Sybil Reis Address: [place] [place] [address]- Business (1) When:12/24/2023 15:03:14 Comments:Call Dr for diagnosis based follow up. Continue to rest, ice, compress, and elevate your affected joint to relieve inflammation and swelling. You may also take Tylenol to help with pain. [facility] 10-04-2024 NoteED Patient Education Note Orthopedics RICE Therapy for Routine Care of Injuries Many injuries can be cared for with rest, ice, compression, and elevation (RICE therapy). This includes: ? Resting the injured body part. ? Putting ice on the injury. ? Putting pressure (compression) on the injury. ? Raising the injured part (elevation). Using RICE therapy can help to lessen pain and swelling. Supplies needed: ? Ice. ? Plastic bag. ? Towel. ? Elastic bandage. ? Pillow or pillows to raise your injured body part. How to care for your injury with RICE therapy Rest Try to rest the injured part of your body. You can go back to your normal activities when your doctor says it is okay to do them and when you can do them without pain. If you rest the injury too much, it may not heal as well. Some injuries heal better with early movement instead of resting for too long. Ask your doctor if you should do exercises to help your injuryget better. Ice ? If told, put ice on the injured area. To do this: ? Put ice in a plastic bag. ? Place a towel between your skin and the bag. ? Leave the ice on for 20 minutes, 2?3 times a day. ? Take off the ice if your skin turns bright red. This is very important. If you cannot feel pain, heat, or cold, you have a greater risk of damage to the area. ? Do not put ice on your bare skin. Use ice for as many days as your doctor tells you to use it. Compression Put pressure on the injured area. This can be done with an elastic bandage. If this type of bandagehas been put on your injury: ? Follow instructions on the package the bandage came in about how to use it. ? Do not wrap the bandage too tightly. ? Wrap the bandage more loosely if part of your body beyond the bandage is blue, swollen, cold, painful, or loses feeling. ? Take off the bandage and put it on again every 3?4 hours or as told by your doctor. ? See your doctor if the bandage seems to make your problems worse. Elevation Raise the injured area above the level of your heart while you are sitting or lying down. Follow these instructions at home: ? If your symptoms get worse or last a long time, make a follow-up appointment with your doctor. You may need to have imaging tests, such as X-rays or an MRI. ? If you have imaging tests, ask how to get your results when they are ready. ? Return to your normal activities when your doctor says that it is safe. ? Keep all follow-up visits. Contact a doctor if: ? You keep having pain and swelling. ? Your symptoms get worse. Get help right away if: ? You have sudden, very bad pain at your injury or lower than your injury. ? You have redness or more swelling around your injury. ? You have tingling or numbness at your injury or lower than your injury, and it does not go away when you take off the bandage. Summary ? Many injuries can be cared for using rest, ice, compression, and elevation (RICE therapy). ? You can go back to your normal activities when your doctor says it is okay and when you can do them without pain. ? Put ice on the injured area as told by your doctor. ? Get help if your symptoms get worse or if you keep having pain and swelling. This information is not intended to replace advice given to you by your health care provider. Make sure you discuss any questions you have with your health care provider. Document Revised: 12/23/2020 Document Reviewed: 12/23/2020 [employer] Patient Education ? 2023 [employer] Ankle Sprain, Phase II Rehab An ankle sprain is an injury to tissue that connects bone to bone (a ligament) in the ankle. Ankle sprains can cause stiffness, loss of motion, and loss of strength. Ask your health care provider which exercises are safe for you. Do exercises exactly as told by your provider and adjust them as directed. It is normal to feel mild stretching, pulling, tightness, or discomfort as you do these exercises. Stop right away if you feel sudden pain or your pain gets worse. Do not begin these exercises until told by your provider. Stretching and [id number]-zk-ylimcp exercises These exercises warm up your muscles and joints. They can improve the movement and flexibility of your lower leg and ankle. They also help to relieve pain and stiffness. Standing gastroc stretch This exercise is also called a standing calf (gastroc) stretch. 1. Stand with your hands against a wall. 2. Extend your left / right leg behind you. Bend your front knee slightly. Your heels should be on the floor. 3. Keeping your heels on the floor and your back knee straight, shift your weight toward the wall. You should feel a gentle stretch in the back of your lower leg (calf). 4. Hold this position for seconds. Repeat times. Complete this exercise times a day. Standing soleus stretch This e (more content not included)...[facility]09-19-2024 Evaluation note* Diagnosis Onset Date Resolution Status Admit Date Venous hypertension of left lower extrem ity acuteSeptember 2023 3:30pm [facility] Work Phone: [phone] History of Present illness Narrative* Hodan Mckeon, CORAL - 11/22/2023 12:00 PM EDT Images from the original note were not included. CHIEF COMPLAINT REASON FOR VISIT : Botox HPI: Flores Houser is a 38 y.o. female who presents for Migraine Botox. She is having 4-5 migraines a week. She averages 16-20 migraine days a month. Duration of migraines 24 hours. She experiences blurry vision, black spots, head pressure, nausea, light sensitivity, sound sensitivity, eye twitches, aura and dizziness. She has a MRI scheduled. Pain is severe. She has experienced migraines for the last 10 years. Migraines have worsened and progressed the last four years. Medications tried: tylenol, ibuprofen, nurtec(worked great), excedrin, flexeril, ubrelvy. She has kidney disease and limits her to a lot of medications that are kidney metabolized like topamax or zonegran, NSAIDs. A lot of medications are both liver and kidney metabolized. CURRENT MEDICATIONS: ALLERGIES/DISCONTINUE MEDICATIONS Current Outpatient Medications Medication Instructions albuterol HFA 90 mcg/act inhaler 2 puffs, Every 4 hours benzonatate (TESSALON) 200 mg, Oral, 3 times daily PRN cyclobenzaprine (Flexeril) 10 MG tablet TAKE 1 TABLET BY MOUTH THREE TIMES DAILY NEEDED for SPASM metFORMIN XR (GLUCOPHAGE-XR) 500 mg, Oral, Daily with evening meal, Do not crush, chew, or split. Nurtec 75 mg, Oral, Daily onabotulinumtoxinA (Botox 200u vial IJ Soln) 200 units injection Inject up to 200 units intramuscular into face and neck muscles every 90 days for chronic migraines. Allergies Allergen Reactions Cranberry Extract Other Reaction(s): Unknown Cephalexin Rash and Hives There are no discontinued medications. PAST MEDICAL HISTORY: SURGICAL/SOCIAL/FAMILY HISTORY DEPRESSION SCREEN: Past Medical History: Diagnosis Date Anxiety Cluster headache Depression (CMS/HCC) Fatigue Headache Hepatitis C (CMS/HCC) Kidney tumor Obesity (BMI 30-39.9) Tobacco use Past Surgical History: Procedure Laterality Date SECTION, CLASSIC 08/2013 SECTION, CLASSIC 07/2020 SECTION, LOW TRANSVERSE 12/19/2022 IR NEPHROURETERAL STENT PLACEMENT Urinary stent placement OTHER SURGICAL HISTORY KIDNEY PROCEDURES SALPINGECTOMY 12/19/2022 Social History Tobacco Use Smoking status: Never Passive exposure: Yes Smokeless tobacco: Current Tobacco comments: Smokes 5 or less cigarettes/day ; after 31-60 minutes of waking up. Thinking about quitting. Vaping Use Vaping status: Never Used Substance Use Topics Alcohol use: Not Currently Comment: Alcohol: 1-2 drinks/monthly or less/ >6 drinks or more less than monthly Drug use: Never Family History Problem Relation Name Age of Onset Stroke Father Edsyed No Known Problems Sister 2 Heart disease Maternal Grandmother Heart disease Maternal Grandfather Edsyed Stroke Maternal Grandfather Edsyed No Known Problems Daughter 2 No Known Problems Son Depression: Not on file REVIEW OF SYMPTOMS: Review of Systems Constitutional: Negative for chills, diaphoresis, fatigue and fever. HENT: Negative for ear pain, tinnitus and trouble swallowing. Eyes: Negative for photophobia and visual disturbance. Respiratory: Negative for cough and shortness of breath. Cardiovascular: Negative for palpitations and leg swelling. Gastrointestinal: Negative for abdominal pain and nausea. Genitourinary: Negative for difficulty urinating and urgency. Musculoskeletal: Negative for arthralgias, back pain, myalgias, neck pain and neck stiffness. Neurological: Positive for headaches. Negative for tremors, weakness, light- headedness and numbness. Psychiatric/Behavioral: Negative for agitation, confusion and suicidal ideas. OBJECTIVE: 11/13/2023 10:24 AM 10/18/2023 12:23 PM 09/26/2023 10:27 AM Vitals BMI 33.45 kg/m2 33.79 kg/m2 33.3 kg/m2 BSA (m2) 2.19 m2 2.2 m2 2.18 m2 Systolic 118 118 Diastolic 74 74 Height (in) 5' 8 5' 8 Weight (lb) 220 222.2 219 Visit Report Report Report Report EXAM: Neurological Exam Mental Status Awake, alert and oriented to person, place and time. Oriented to person, place and time. Speech is normal. Language is fluent with no aphasia. Gait Casual gait is normal including stance, stride, and arm swing. PROCEDURE: Procedure - Therapeutic injection, Botulinum Toxin, Chronic Migraine Indication Chronic Migraine Identification The patient was positively identified by name and date of . Consent The procedure was explained to the patient. This included indications; possible complications, including at least bleeding, infection, and ; and ill effects from not undergoing the procedure, including at least inadequate treatment and all possible complications therefrom. Informed consent forthe procedure was obtained and witnessed. Any further questions were answered during this visit. Site Prep The areas to be injected were sterilized with 70% isopropanol. Specialty pharmacy Lot # [id number] Dilution 200 units diluted into 4mL = 5 units per 0.1mL Procedure Procerus 5 units Chapter Relations Administrator, L 5 units Chapter Relations Administrator, R 5 units Frontalis, L 10 units (2 sites) Frontalis, R 10 units (2 sites) Temporalis, L 20 units (4 sites) Temporalis, R .20 units (4 sites) Occipitalis, L 15 units (3 sites) Occipitalis, R 15 units (3 sites) Paraspinalis cervicis, L 10 units (2 sites) Paraspinalis cervicis, R 10 units (2 sites) Trapezius, L 15 units (3 sites) Trapezius, L 15 units (3 sites) Other 45 units (9 sites, see below) TOTAL UNITS INJECTED 200 WASTED 0 The remaining 45 units were injected into various other facial or cervical muscles whose spasmed state was likely to trigger migraines, as determined by clinical examination during the procedure. Disposition The patient tolerated the procedure well. Post-op care was discussed. The patient is aware that duration of action is 3 months, and that delay in reinjection often results in recurrence of migraines Patient Instructions The patient was instructed to return should any bleeding or fluid be seen from the puncture site; for fever; numbness; weakness; or any other unexpected symptoms. Also instructed to follow up in 2-2.5 months to assess effectiveness and need for further treatment. Assessment Chronic migraine without aura, intractable, without status migrainosus - G43.719 Procedure Codes 07366 Chemodenervation of neck muscles, bilateral: Modifiers: 50 27510 Destroy Nerve, Face Muscle, Modifiers: 50 , 51 J0585 Botulinum toxin a per unit, Units: 200.00 Follow Up 2.5 months appointment; 3 months BTX ASSESSMENT AND PLAN: Diagnoses and all orders for this visit: Intractable chronic migraine without aura and without status migrainosus (CMS/HCC) 38 year old female here for first botox injections for chronic migraines. documented in this encounterMid Missouri Mental Health [id number] History of Present illness Narrative* ARTEM Bloom - 11/13/2023 10:00 AM EDT Reason for Appointment: Patient ID: Flores Houser is a 38 y.o. female who presents for Gynecologic Exam Patient presents today for Annual Exam. MEDICATIONS Current Outpatient Medications Medication Instructions albuterol HFA 90 mcg/act inhaler 2 puffs, Every 4 hours benzonatate (TESSALON) 200 mg, Oral, 3 times daily PRN cyclobenzaprine (Flexeril) 10 MG tablet TAKE 1 TABLET BY MOUTH THREE TIMES DAILY NEEDED for SPASM Nurtec 75 mg, Oral, Daily onabotulinumtoxinA (Botox 200u vial IJ Soln) 200 units injection Inject up to 200 units intramuscular into face and neck muscles every 90 days for chronic migraines. ALLERGIES Allergies Allergen Reactions Cranberry Extract Other Reaction(s): Unknown Cephalexin Rash and Hives PROBLEMS Active Ambulatory Problems Diagnosis Date Noted Chronic cystitis 11/02/2022 Fatigue 11/02/2022 Migraine without aura and without status migrainosus, not intractable (CMS/HCC) 11/02/2022 Morbid obesity (CMS/HCC) 11/02/2022 Hydronephrosis 11/02/2022 Nocturia 11/02/2022 History of kidney disease 11/02/2022 with history of section, antepartum 04/02/2020 Stress incontinence 11/02/2022 Tobacco smoking affecting 03/29/2020 Ureteral stricture 11/02/2022 S/P section 12/27/2022 Intractable chronic migraine without aura and without status migrainosus (CMS/HCC) 07/17/2023 Blurring of visual image of right eye 07/17/2023 Major depressive disorder, recurrent (CMS/HCC) 09/26/2023 Urinary tract infection 09/26/2023 Varicose veins of both lower extremities with pain 10/18/2023 Resolved Ambulatory Problems Diagnosis Date Noted No Resolved Ambulatory Problems Past Medical History: Diagnosis Date Anxiety Cluster headache Depression (CMS/HCC) Headache Hepatitis C (CMS/HCC) Kidney tumor Obesity (BMI 30-39.9) Tobacco use HISTORY PAST MEDICAL HISTORY SOCIAL HISTORY Past Medical History: Diagnosis Date Anxiety Cluster headache Depression (CMS/HCC) Fatigue Headache Hepatitis C (CMS/HCC) Kidney tumor Obesity (BMI 30-39.9) Tobacco use Social History Tobacco Use Smoking status: Never Passive exposure: Yes Smokeless tobacco: Current Tobacco comments: Smokes 5 or less cigarettes/day ; after 31-60 minutes of waking up. Thinking about quitting. Vaping Use Vaping status: Never Used Substance Use Topics Alcohol use: Not Currently Comment: Alcohol: 1-2 drinks/monthly or less/ >6 drinks or more less than monthly Drug use: Never FAMILY HISTORY Family History Problem Relation Name Age of Onset Stroke Father Edsyed No Known Problems Sister 2 Heart disease Maternal Grandmother Heart disease Maternal Grandfather Edsyed Stroke Maternal Grandfather Edsyed No Known Problems Daughter 2 No Known Problems Son SURGICAL HISTORY Past Surgical History: Procedure Laterality Date SECTION, CLASSIC 08/2013 SECTION, CLASSIC 07/2020 SECTION, LOW TRANSVERSE 12/19/2022 IR NEPHROURETERAL STENT PLACEMENT Urinary stent placement OTHER SURGICAL HISTORY KIDNEY PROCEDURES SALPINGECTOMY 12/19/2022 REVIEW OF SYSTEMS Review of Systems: Review of Systems Constitutional: Negative. HENT: Negative. Eyes: Negative. Respiratory: Negative. Cardiovascular: Negative. Gastrointestinal: Negative. Genitourinary: Negative. Musculoskeletal: Negative. Skin: Negative. Neurological: Negative. All other systems reviewed and are negative. Hematological: Negative. Endocrine: Negative. Allergic/Immunologic: Negative. OBJECTIVE Objective: Physical Exam Constitutional: Appearance: Normal appearance. She is well-developed. Genitourinary: Vulva normal. Right Adnexa: not tender and no mass present. Left Adnexa: not tender and no mass present. No cervical discharge. Breasts: Breasts are soft. Right: Normal. Left: Normal. HENT: Head: Normocephalic. Nose: Nose normal. Mouth/Throat: Mouth: Mucous membranes are moist. Cardiovascular: Rate and Rhythm: Normal rate and regular rhythm. Pulmonary: Effort: Pulmonary effort is normal. Breath sounds: Normal breath sounds. Abdominal: General: Bowel sounds are normal. There is no distension. Palpations: Abdomen is soft. Tenderness: There is no abdominal tenderness. There is no guarding or rebound. Musculoskeletal: General: No swelling. Normal range of motion. Cervical back: Normal range of motion. Right lower leg: No edema. Left lower leg: No edema. Neurological: General: No focal deficit present. Mental Status: She is alert and oriented to person, place, and time. Skin: General: Skin is warm and dry. Psychiatric: Mood and Affect: Mood normal. Behavior: Behavior normal. Vitals and nursing note reviewed. Exam conducted with a etched circuit processor present. Vitals: Estimated body mass index is 33.45 kg/m as calculated from the following: Height as of 10/18/23: 5' 8 . Weight as of this encounter: 220 lb. BP: 118/74 Patient's last menstrual period was 11/05/2023 (approximate). ASSESSMENT & PLAN ICD-10-CM 1. Well woman exam with routine gynecological exam Z01.419 Pap Smear HPV DNA probe, amplified Pt seen today for annual visit. Pt complains of having to urinate quite often and would like to be tested for a UTI. Urine was collected and tested. Urine came back negative for a UTI. Pt wanted to discuss other options for weight loss. Pt seen her pcp and was prescribed Adipex and stated it makes her on edge. Gracia Hidalgo suggested she tries Metformin and see how she does with it. Pt verbally agreed and rx was sent to pharmacy. Pt will call office if she decides to get back on Adipex. Pt was alsoadvised we do the weight loss injections through [facility] for $225.00 and pt declined. Pap smear was preformed and collected by Gracia Hidalgo. Documented by Lisa Matson MA on behalf of: ARTEM Bloom documented in this encounterMid Missouri Mental Health CenterLevezcfxyv59-69-8325 Hospital Discharge instructions Follow Up Care 09/17/2023 13:17:42 With:ISABELL CORREIA, FLORES Gonzalez, URL Address: [address] [place] [address]. [place] [address] When: Unknown [facility] 06-09-2024 Evaluation + Plan noteExtracted from:Title: ED NoteAuthor:Lance Cortes DODate:08/26/23 Pneumonia (J18.9: Pneumonia, unspecified organism) Orders: doxycycline, 100 mg = 1 cap(s), Cap, Oral, Once, Stop date 08/26/23 10:35:00 EDT, STAT, Start date 08/26/23 10:35:00 EDT, 08/26/23 10:35:00 EDT doxycycline, 100 mg = 1 tab(s), Oral, BID, X 7 day(s), # 14 tab(s), Refills(s) 0, Pharmacy: [id number], 172.7, cm, 08/26/23 10:11:00 EDT, Height/Length Dosing, 99, kg, 08/26/23 10:11:00 EDT, Weight Dosing ECG 12 Lead Adult XR Chest 2 Views [facility]06-09-2024 Hospital Discharge instructions Follow Up Care 08/26/2023 09:46:12 With:Sybil Reis Address: [place] [address] Business (1) When:Within 3 Day(s) [facility]06-08-2024 NoteMicrobiology PROCEDURE: Strep Screen Culture [R1] [...] Locations R1: This test was performed at: [facility], [address] [place] [address], [id number] , , WbsrsjTrihealth Bethes[facility] Butler HospitalComment on above:Performed By: #### [id number] #### [facility] [address] [place] [address] [id number] NoteMicrobiology PROCEDURE: Strep Screen Culture [R1] SOURCE: Throat BODY SITE: COLLECTED DATE/TIME: 08/22/2023 17:34 EDT RECEIVED DATE/TIME: 08/23/2023 13:39 EDT START DATE/TIME: 08/23/2023 13:39 EDT FREE TEXT SOURCE: Matthew Robles PA-C. Robles PA-C, Matthew W. FINAL REPORTS Final Report [] Verified Date/Time: 08/25/2023 10:36 EDT Streptococcus Group A screen negative 2+ Streptococcus agalactiae (Group B) Presumptive isolated. Performing Locations R1: This test was performed at: [facility], [address] [place] [address], [id number]- , [place], RakrrwTrihealth Bethes[facility] Butler HospitalComment on above:Performed By: #### [id number] ####[facility] [address] [place], [place] [id number] Evaluation + Plan note Diagnostic Tests Pending * Strep Screen Culture 08/22/23 [facility]02-28-2024 Miscellaneous Notes* Result Encounter Note - ARTEM Lee - 05/16/2023 11:59 PM EST Let patient know she needs to f/u with PCP or MAT MACHINE OPERATOR and test for DVT was Neg documented in this encounterMid Missouri Mental Health [id number] Progress note* Result Encounter Note - ARTEM Lee - 05/16/2023 11:59 PM EST Let patient know she needs to f/u with PCP or MAT MACHINE OPERATOR and test for DVT was Neg [facility] Work Phone: [phone] Telephone encounter Note* Telephone Encounter - Holli Rolle - 05/02/2023 1:26 PM EST Lm informing pt, closing enc [facility] CenterBvcbxkrpxj91-26-4680 Miscellaneous Notes* Telephone Encounter - Holli Rolle - 05/02/2023 1:26 PM EST Lm informing pt, closing enc * Telephone Encounter - Sybil Reis MD - 05/02/2023 8:37 AM EST Order created and faxed * Telephone Encounter - Holli Rolle - 05/02/2023 8:29 AM EST Pt calls and states US should have been ordered to [facility] from last visit? Please advise thank you. documented in this encounterNOMercy hospital springfieldTvyyfjwmwm32-55-7541 Telephone encounter Note* Telephone Encounter - Sybil Reis MD - 05/02/2023 8:37 AM EST Order created and faxed [facility] [id number] Telephone encounter Note* Telephone Encounter - Sybil Reis MD - 05/02/2023 8:35 AM EST Rx sent [facility] [id number] Miscellaneous Notes* Telephone Encounter - Sybil Reis MD - 05/02/2023 8:35 AM EST Rx sent * Telephone Encounter - Devika Chapman MA - 05/02/2023 8:25 AM EST Pt states needing nicotine patches sent? DDM Abhi documented in this encounterMid Missouri Mental Health CenterUiqhclutfh91-21-2973 Telephone encounter Note* Telephone Encounter - Holli Rolle - 05/02/2023 8:29 AM EST Pt calls and states US should have been ordered to [facility] from last visit? Please advise thank you. [facility] CenterDngsqkfoov64-42-7041 Telephone encounter Note* Telephone Encounter - Devika Chapman MA - 05/02/2023 8:25 AM EST Pt states needing nicotine patches sent? DDKelly Moe [facility] [id number] History of Present illness Narrative* Sybil Reis [...] timestamp. Flowsheet Row Documentation from 04/25/[address] [facility] with Talia Roach MA Discharge Information ED or Hospital Discharge? ED Patient has been contacted within 1 week of being seen in the ED Yes Discharge Date 04/24/23 Discharge Hospital [facility] Discharged To: Home Setting Engagement Medications [...] No follow-ups on file. documented in this encounterMid Missouri Mental Health [id number] Evaluation + Plan note Diagnostic Tests Pending * Calculi Analysis Urinary 03/29/23 [facility]11-07-2023 Hospital Discharge instructions Patient Education 01/23/2023 [...] include: ?8 oz (237 mL) of milk, bfsgivv-sckbhsvdtuee-noxxd milk, and calcium- fortifiedfruit juice. Calcium-fortified means [...] ?Spinach (cooked), rhubarb, beets, sweet potatoes, and Niuean chard. ?Peanuts. ?Potato chips, yi fries, and baked potatoes with skin on. ?Nuts and nut products. ?Chocolate. If you regularly take a diuretic medicine, make sure to eat at least 1 or 2 servings of fruits or vegetables that are high in potassium each day. These include: ?Avocado. ?Banana. ?[place], prune, carrot, or tomato juice. ?Baked potato. [...] magnesium, fish oil, or vitamin B6. Take nqww-rtz-wjasavm and prescription medicines only as told by [...] Casseroles. Pizza. Lasagna. Frozen meals. Potato chips. Portuguese fries. The items listed above may not [...] provider. Document Revised: 11/14/2021 Document Reviewed: 11/14/2021 [employer] Patient Education 2022 [employer]. Follow Up Care 01/18/2023 11:12:25 With:FLORES CAMPBELL PA-C, URL Address: [address] [place] [address] [id number] When: Unknown Comments:will call pt [facility] 03-14-2023 Hospital Discharge instructions Patient Education 05/30/2022 14:22:17 Kidney Stones, Eybn-ts-Ntzv Kidney Stones Kidney stones are rock-like masses [...] Follow these instructions at home: Medicines Take kkhr-krt-bnsgmgb and prescription medicines only as told by [...] 08/21/2008 Document Revised: 07/22/2019 Document Reviewed: 07/22/2019 [employer] Patient Education 2019 [employer]. Follow Up Care 02/03/2022 10:51:16 With:FLORES CAMPBELL PA-C, URL Address: [address] [place] [address] When: Unknown [facility] 12-26-2022 Evaluation + Plan noteExtracted from:Title: ED NoteAuthor:Jose Teran DO ADate:03/13/22 Toe fracture (S92.919A: Unsp ecified fracture of unspecified toe(s), initial encounter for closed fracture) Orders: acetaminophen-hydrocodone, 1 EA, Tab, Oral, Once, Stop date 03/13/22 3:15:00 EST, STAT, Start date 03/13/22 3:15:00 EST Post-op Shoe XR Foot 3+ Views Left Future Appointments Appointment Date:05/09/2022 01:00:00 PM Scheduled Provider:FLORES CAMPBELL PA-C Location:[facility] Appointment Type:URO Office Visit Appointment Date:01/01/2023 01:15:00 PM Scheduled Provider:Antonio ROSE MD Location:[facility] Appointment Type:URO Office Visit [facility]12-26-2022 Hospital Discharge instructions Patient Education 03/13/2022 03:31:06 Toe Fracture, Mfjh-op-Niig Toe Fracture A toe fracture is a [...] 08/21/2008 Document Revised: 05/09/2018 Document Reviewed: 04/16/2018 [employer] Patient Education 2020 [employer] Lab. Follow Up Care 03/13/2022 02:36:09 With:Leigh Gonzalez Address: [address] [place] [phone]- Business (1) When:03/16/2022 Comments:Use the pain medication every 6 hours as needed for pain. Please follow-up with orthopedics for further evaluation management. Please return to ED for any new or worsening symptoms. With:DOMO REIS Address: [address] [address] Business (1) When:03/16/2022 [facility]12-11-2022 Evaluation + Plan noteExtracted from: Title:ED NoteAuthor:Zuhair Chen Phillipfrancesco HDate:02/26/22 1. Headache (R51.9: Headache , unspecified) Orders: diphenhydrAMINE, 50 mg = 1 mL, Injection, IV Push, Once, Stop date 02/26/22 0:32:00 EST, STAT, Start date 02/26/22 0:32:00 EST, 02/26/22 0:32:00 EST ketorolac, 30 mg = 1 mL, Injection, IV Push, Once, Stop date 02/26/22 0:32:00 EST, STAT, Start date02/26/22 0:32:00 EST, 02/26/22 0:32:00 EST metoclopramide, 10 mg = 2 mL, Injection, IV Push, Once, Stop date 02/26/22 0:32:00 EST, STAT, Startdate 02/26/22 0:32:00 EST, 02/26/22 0:32:00 EST Sodium Chloride 0.9% intravenous solution, 500 mL, Soln-IV, IV, Once, Stop date 02/26/22 0:32:00 EST, STAT, Start date 02/26/22 0:32:00 EST, 500 mL/hr, Infuse over 1, hour(s) Sedimentation Rate Automated Future Appointments Appointment Date:05/09/2022 01:00:00 PM Scheduled Provider:FLORES CAMPBELL PA-C Location:[facility] Appointment Type:URO Office Visit Appointment Date:01/01/2023 01:15:00 PM Scheduled Provider:Antonio ROSE MD Location:[facility] Appointment Type:URO Office Visit [facility]12-11-2022 Hospital Discharge instructions Patient Education 02/26/2022 [...] help with your condition: Managing pain Take cjls-ksl-jnqlokv and prescription medicines only as told by [...] 03/05/2006 Document Revised: 09/23/2018 Document Reviewed: 09/23/2018 [employer] Patient Education 2020 [employer]. Follow Up Care 02/25/2022 23:48:18 With:DOMO REIS Address: [facility] [address] [address] [facility] (1) When:03/01/2022 Comments:Return to the emergency room if your headache recurs or any new symptoms [facility]11-26-2022 Hospital Discharge instructions Patient Education 02/11/2022 [...] back becomes more flexible: 1.Get into a orcxd-etz-uuoat position on a firm surface. Keep your [...] 04/12/2005 Document Revised: 07/10/2019 Document Reviewed: 12/05/2018 [employer] Patient Education 2020 [employer]. 02/11/2022 12:52:36 Acute Back Pain, Adult Acute [...] home: Managing pain, stiffness, and swelling Take osiv-zjh-kqrugfd and prescription medicines only as told by [...] each day. Do not sit, drive, or clinical research assistant one place for more than 30 minutes [...] put less stress on your back. Take ufxw-cmo-ghzmheo and prescription medicines and apply heat or ice as directed by your health care provider. This information is not intended to replace advice given to you by your health care provider. Make sure you discuss any questions you have with your health care provider. Document Released: 03/05/2006 Document Revised: 06/24/2019 Document Reviewed: 10/17/2017 [employer] Patient Education 2020 [employer]. Follow Up Care 02/11/2022 11:42:16 With:DOMO REIS Address: [facility] [address] [address] [facility] (1) When:02/14/2022 12:47:50 Comments:Call the office of [...] breath, or any new or worsening symptoms. [facility]11-26-2022 Evaluation + Plan noteExtracted from: Title:ED NoteAuthor:Jeff Maya DODate:02/11/22 Musculoskeletal back pain (M 54.9: Dorsalgia, unspecified) Orders: cyclobenzaprine, 10 mg = 1 tab(s), Oral, TID, PRN Muscle pain, X 5 day(s), # 15 tab(s), Refills(s) 0, [facility], cm, 02/11/22 12:01:00 EST, Height/Length Dosing, 105, kg, 02/11/22 12:01:00 EST, Weight Dosing ketorolac, 30 mg = 1 mL, Injection, IntraMuscular, Once, Stop date 02/11/22 12:43:00 EST, STAT, Start date 02/11/22 12:43:00 EST, 02/11/22 12:43:00 EST lidocaine topical, 1 patch(es), Topical, Daily Muscle pain, 7 EA, Refill(s) 0, apply 12 hours on and 12 hours off daily[facility], [facility], cm, 02/11/22 12:01:00 EST, Height/Length Dosing, 105, kg, 02/11/22 12:01:00 EST, Weight Dosing lidocaine topical, 1 patch(es), Patch, TransDermal, Once, Stop date 02/11/22 12:43:00 EST, STAT, Start date 02/11/22 12:43:00 EST naproxen, 500 mg = 1 tab(s), Oral, BID, PRN for pain, # 20 tab(s), Refills(s) 0, [facility], [facility], cm, 02/11/22 12:01:00 EST, Height/Length Dosing, 105, kg, 02/11/22 12:01:00 EST,Weight Dosing U Beta Hcg Qual UA With Cult Reflex Future Appointments Appointment Date:05/09/2022 01:00:00 PM Scheduled Provider:FLORES CAMPBELL PA-C Location:[facility] Appointment Type:URO Office Visit Appointment Date:01/01/2023 01:15:00 PM Scheduled Provider:Antonio ROSE MD Location:[facility] Appointment Type:URO Office Visit [facility]11-04-2022 Evaluation + Plan noteExtracted from: Title:ED NoteAuthor:Eugenio CORREIA, Trent TovarDate:01/20/22 Viral URI (J06.9: Acute uppe r respiratory infection, unspecified) Orders: brompheniramine/dextromethorphan/PSE, 5 mL, Oral, QID for cold symptoms, 200 mL, Refill(s) 0, [facility], 174, cm, 01/20/22 9:44:00 EDT, Height/Length Dosing, 94, kg, 01/20/22 9:44:00 EDT,Weight Dosing Influenza A&B Ag Rapid COVID Antigen ([facility]) Future Appointments Appointment Date:01/01/2023 01:15:00 PM Scheduled Provider:Antonio ROSE MD Location:[facility] [place] Appointment Type:URO Office Visit [facility]11-04-2022 Hospital Discharge instructions Patient Education 01/20/2022 10:51:02 Upper Respiratory Infection, Adult, Gfbw-bl-Mdgy Upper Respiratory Infection, Adult An upper respiratory [...] and other clear broths. General instructions Take bzup-ubg-smggmpr and prescription medicines only as told by [...] not have soap and water, use hand rn perinatal. Avoid touching your mouth, face, eyes, or [...] get better within 7 10 days. Take jfmt-vej-qnpzfph and prescription medicines only as told by your doctor. This information is not intended to replace advice given to you by your health care provider. Make sure you discuss any questions you have with your health care provider. Document Released: 08/21/2008 Document Revised: 03/13/2019 Document Reviewed: 10/26/2017 [employer] Patient Education 2020 [employer] 01/20/2022 10:51:02 Cough, Adult Cough, Adult Coughing [...] Follow these instructions at home: Medicines Take lkqh-urp-clszyyj and prescription medicines only as told by [...] of a condition that needs treatment. Take jdfm-maw-qltbiij and prescription medicines only as told by [...] 09/01/2011 Document Revised: 03/24/2019 Document Reviewed: 03/24/2019 [employer] Patient Education 2019 [employer] Lab. Follow Up Care 01/20/2022 09:28:29 With:DOMO REIS Address: [facility] [address] [address] [facility] (1) When:01/23/2022 10:47:15 Comments:Follow-up with your primary care provider in 3 to 5 days. If symptoms worsen, do not improve, or new symptoms arise please report back to emergency department for further evaluation. [facility]10[facility]10[facility]2022 Hospital Discharge instructions Patient Education 12/26/2021 16:22:27 Kidney Stones, Xizx-bo-Dujv Kidney Stones Kidney stones are rock-like masses [...] Follow these instructions at home: Medicines Take lceo-pis-givswvy and prescription medicines only as told by [...] 08/21/2008 Document Revised: 07/22/2019 Document Reviewed: 07/22/2019 [employer] Patient Education 2019 [employer]. Follow Up Care 10/20/2021 11:32:55 With:ROSE GIMENEZ, Antonio Parikh, URL Address: [facility] [address] [place] [address] [phone] When:12/26/2022 Comments:KUB [facility] 08-01-2022 Evaluation + Plan note Diagnostic Tests Pending * HCV RT-PCR, Quant (Non-Graph) 10/17/21 [facility]07-02-2022 Hospital Discharge instructions Patient Education 09/17/2021 [...] told by your health care provider. Take xogi-ppj-vbiypqs and prescription medicines only as told by [...] 04/26/2006 Document Revised: 02/15/2018 Document Reviewed: 05/18/2017 [employer] Patient Education 2020 [employer] Follow Up Care 09/16/2021 22:50:01 With:Gracia Murillo Address: [address] [place] [address]- Business (1) When:Within 3 Day(s) [facility]07-01-2022 Evaluation + Plan noteExtracted from: Title:ED NoteAuthor:Kendrick Valenzuela DO.Date:09/16/21 Flank pain (R10.9: Unspecifi ed abdominal pain) Orders: ketorolac, 15 mg = 1 mL, Injection, IV Push, Once, Stop date 09/17/21 0:28:00 EDT, STAT, Start date09/17/21 0:28:00 EDT, 09/17/21 0:28:00 EDT Sodium Chloride 0.9% intravenous solution, 1,000 mL, Soln-IV, IV, Once, Stop date 09/16/21 22:53:00EDT, STAT, Start date 09/16/21 22:53:00 EDT, mL/hr, Infuse over 61, minute(s) Sodium Chloride 0.9% intravenous solution, Soln-IV, Misc, Once, Stop date 09/16/21 22:53:56 EDT, Physician Stop, 09/16/21 22:53:56 EDT Automated Diff Basic Metabolic Panel CBC w/ Auto Diff CT Abdomen/Pelvis w/o Contrast eGFR Hepatic Function Panel Lipase Level U Beta Hcg Qual UA With Cult Reflex [facility]06-09-2022 Hospital Discharge instructions Patient Education 08/25/2021 [...] than 2 years old. Live in a custodial. Travel on cruise ships. What are the [...] and water are not available, use hand rn perinatal. Make sure that all people in your household wash their hands well and often. Take fcsm-zfo-pjrrseh and prescription medicines only as told by [...] and water are not available, use hand rn perinatal. This information is not intended to replace advice given to you by your health care provider. Make sure you discuss any questions you have with your health care provider. Document Released: 03/05/2006 Document Revised: 08/22/2019 Document Reviewed: 01/08/2019 [employer] Patient Education 2020 [employer]. Follow Up Care 08/25/2021 20:22:07 With:Lilian Vargas Address: [address], [facility] [address] [place] [address] Business (1) When:08/28/2021 20:52:48 Comments:Call the office [...] weakness, or any new or worsening symptoms. [facility]06-09-2022 Evaluation + Plan noteExtracted from: Title:ED NoteAuthor:Jeff Maya DODate:08/25/21 Acute gastroenteritis (K52.9 : Noninfective gastroenteritis and [...] date 08/25/21 20:49:00 EDT, 08/25/21 20:49:00 EDT [facility]04-11-2022 Evaluation + Plan note Diagnostic Tests Pending * HCV RT-PCR, Quant (Non-Graph) 06/27/21 [facility]02-16-2022 Evaluation note* Encounter Date Diagnosis Assessment [...] treatment and 12 weeks after finishing treatment. DATY Other 01-05-2022 Evaluation note* Encounter Date Diagnosis [...] TESTING Q 4 WEEKS WHILE ON THERAPY DATY Other Evaluation + Plan note Future Appointments Appointment Date:01/01/2023 01:15:00 PM Scheduled Provider:Antonio ROSE MD Location:[facility] Appointment Type:URO Office Visit [facility] evaluation + Plan note Future Appointments Appointment Date:03/09/2025 12:45:00 PM Scheduled Provider:Antonio ROSE MD Location:[facility] Appointment Type:URO Office Visit [facility] Evaluation note* Diagnosis Left hip pain- Primary Pain [...] of both lower extremities with pain acute [facility] Work Phone: Evaluation note* Diagnosis Onset Date Resolution Status Varicose veins of both lower extremities with pain acuteVenous hypertension of left lower extremityacute [facility] Work Phone: Evaluation note* Diagnosis Intractable chronic migraine without aura and without status migrainosus (CMS/HCC)- Primary documented in this encounter [facility] HealthcareEvaluation note* Diagnosis Well woman exam with routine gynecological exam Routine gynecological examination Urinary tract infection without hematuria, site unspecified Weight gain Other symptoms concerning nutrition, metabolism, and development documented in this encounter [facility] HealthcareEvaluation note* Diagnosis Intractable chronic migraine without aura and without status migrainosus (CMS/HCC)- Primary documented in this encounter [facility] HealthcareEvaluation noteNo assessment information available[facility] Work [facility]: Evaluation note* Diagnosis Right-sided chest pain- Primary Anxiety Anxiety state, unspecified Obesity (BMI 30.0-34.9) BMI 34.0-34.9,adult documented in this encounter [facility] HealthcareEvaluation note* Diagnosis Intractable chronic migraine without aura and without status migrainosus (CMS/HCC)- Primary documented in this encounter [facility] HealthcareEvaluation note* Diagnosis Adnexal cyst Encounter for weight management documented in this encounter [facility] HealthcareEvaluation note* Diagnosis Intractable chronic migraine without aura and without status migrainosus- Primary documented in this encounter [facility] HealthcareHistory general Narrative - Reported* Type Description Date Surgical History C section DATY Other Hospital course Narrative No data available for this section [facility] No data available for this section [facility] No data available for this section [facility]Reason for referral (narrative)* Consultation (Routine) - Pending ReviewSpecialtyDiagnoses / ProceduresReferred By Contact Referred To ContactNeurology Diagnoses Episodic cluster headache, not intractable Procedures VA OFFICE/OUTPATIENT NEW HIGH MDM 60 MINUTES Sybil Reis MD [address] [place] [address] Gregory Malone MD [address] [place] [address] Referral IDStatusReasonStgrand bay DateExpiration DateVisits RequestedVisits [id number] Review Specialty Services Required / * Consultation (Routine) - Pending ReviewSpecialtyDiagnoses / ProceduresReferred By ContactReferred To ContactOrthopaedic Surgery Diagnoses Left hip pain Sybil Reis MD [address] [place] [address] Juan Nelson, DO [address] [place] [address] Referral IDStatus[facility] DateExpiration DateVisits RequestedVisits [id number] Review Specialty Services Required [facility] for visit NarrativePATIENT HERE AT THE REQUEST OF DR JOSHI FOR EVALUATION & TREATMENT OF HEPATITIS C.- PATIENT STATES WAS DORMENT FOR 3 YEARS AND WHEN SHE WAS THIS FLARED UP. PATIENT HAS NOT HAD ANY RECENT L ABS OR IMAGING., 03/[address] JOSHI' OFFICE FOR [email or web address] Other Summary Purpose Family History Relationship Condition Age at Onset Recorded Date/T berto Not Specified No pertinent family history Unknown Advance Directives Advance Directive Response Recorded Date/ Time Advance Directives No September 16 1:11pm Advance Directive Response Recorded Date/ Time Advance Directives No September 16 12:11pm Chief Complaint and Reason for Visit Chief Complaint Self Ref for Varicos e Veins Reason for Visit Varicose veins of miki th lower extremities with pain Chief Complaint Self Ref for Varicos e Veins [facility] for VisitVaricose veins of both lower extremities with pain Venous hypertension of left lower extremity Chief Complaint Admit Date GO OVER F/F DONE AT [facility] December 06, 2023 3:30pm lt leg gsv venaseal January 30, 2024 2:23pm Reason for Visit Admit Date Venous hypertension of left lower extrem ity December 06, 2023 3:30pm Chief Complaint Admit Date lt leg gsv venaseal January 30, 2024 2:23pm 4 WK S/P VENASEAL LEFT LEG March 27, 2024 9:47am Chief Complaint Admit Date 4 WK S/P VENASEAL LEFT LEG March 27, 2024 9:47am varithena rt leg first June 06, 2024 10:03am Reason for Visit Admit Date Varicose veins of both lower extremities with pain March 27, 2024 9:47am Venous hypertension of left lower extrem ity March 27, 2024 9:47am Chief Complaint Admit Date 4 WK S/P VENASEAL LEFT LEG March 27, 2024 9:47am varithena rt leg first June 06, 2024 10:03am [id number] June 17, 2024 8:11 am Additional Source Comments INFORMATION SOURCE (unrecogn ized section and content) DATE CREATED AUTHOR 09/05/2017 [facility] DATE CREATED AUTHOR AUTHOR'S ORGANIZ ATION 09/20/2017 [facility] DATE CREATED AUTHOR AUTHOR'S ORGANIZ ATION 07/28/2022 [facility] DATE CREATED AUTHOR AUTHOR'S ORGANIZ ATION 08/23/2023 [facility] DATE CREATED AUTHOR AUTHOR'S ORGANIZ ATION 08/26/2023 [facility] DATE CREATED AUTHOR AUTHOR'S ORGANIZ ATION 06/20/2024 [facility] DATE CREATED AUTHOR AUTHOR'S ORGANIZ ATION 06/22/2024 [facility] DATE CREATED AUTHOR AUTHOR'S ORGANIZ ATION 07/10/2024 [facility] DATE CREATED AUTHOR AUTHOR'S ORGANIZ ATION 10/23/2024 [facility] DATE CREATED AUTHOR AUTHOR'S ORGANIZ ATION 01/11/2025 [facility] REASON FOR VISIT (unrecogniz ed section and content) ReasonCommentsHospital Follow-upPt here for hosp follow upReasonOnset Date Sfksnqfudsibfjl17/14/2024ReasonCommentsGynecologic ExamReasonCommentsChest PainR side, sharp painReasonCommentsER Follow-up Care Team (unrecognized sect ion and content) Team MemberRelationshipSpecialtyStart DateEnd Date Sybil Reis MD [address] [place] [address] PCP - [facility]08/29/22Team MemberRelationshipSpecialtyStart DateEnd Date Sybil Reis MD [address] [place] [address] PCP - [facility]08/29/22Te MemberRelationshipSpecialtyStart DateEnd Date ySbil Reis MD [address] [place] [address] PCP - [facility]08/29/22Te MemberRelationshipSpecialtyStart DateEnd Date Sybil Reis MD [address] [place] [address] PCP - [facility]08/29/22 Team Status: Active Member Role Status Dates Kevin Joshi MD Primary Care Provider Active Team Status: Inactive Member Role Status Dates Kevin Joshi MD Primary Care Provider Active Start: October 11, 2023 End: October 11, 2023Tess Hernandez ProviderActiveStart: October 11, 2023 End: October 11, 2023 Team Status: Inactive Member Role Status Dates Kevin Joshi MD Primary Care Provider Active Start: December 06, 2023 End: December 06, 2023Tess Hernandez ProviderActiveStart: December 06, 2023 End: December 06, 2023 Team Status: Inactive Member Role Status Dates Kevin Joshi MD Primary Care Provider Active Start: January 30, 2024 End: January 30, 2024Josh Hernandezending ProviderActiveStart: January 30, 2024 End: January 30, 2024Team MemberRelationshipSpecialtyStart DateEnd Date Sybil Reis MD [address] [place] [address] PCP - [facility]08/29/22 Sybil Reis MD [address] [place] [address] PCP - [address]04/11Te MemberRelationshipSpecialtyStart DateEnd Date Sybil Reis MD [address] [place] [address] [facility] - [facility]08/29/22 Sybil Reis MD [address] [place] [address] [facility]06/18/23Te MemberRelationshipSpecialtyStart DateEnd Date Sybil Reis MD [address] [place] [address] PCP - [facility]08/29/22 Sybil Reis MD [address] [place] [address] [place] [address]Te MemberRelationshipSpecialtyStart DateEnd Date Sybil Reis MD [address] [place] [address] PCP - [facility]08/29/22 Sybil Reis MD [address] [place] [address] PCP [facility]06/18/23Team MemberRelationshipSpecialtyStart DateEnd Date Sybil Reis MD [address] [place] [address] [facility]08/29/22 Sybil Reis MD [address] [place] [address] [facility]06/18/23Team MemberRelationshipSpecialtyStart DateEnd Date Sybil Reis MD [address] [place] [address] [facility]08/29/22 Sybil Reis MD [address] [place] [address] [facility]06/18/23 Team Status: Inactive Member Role Status Dates Kevin Joshi MD Primary Care Provider Active Start: March 27, 2024 End: March 27, 2024Randy Matias MDAtttorres ProviderActiveStart: March 27, 2024 End: March 27, 2024Team MemberRelationshipSpecialtyStart DateEnd Date Sybil Ries MD [address] [place] [address] [facility]08/29/22 Hima Gandhi DO [address] [place], [place] [address] [address] PCP - [facility]03/19/24Team MemberRelationshipSpecialtyStart DateEnd Date Sybil Reis MD [address] [place] [address] PCP - [facility]08/29/22 Hima Gandhi, [facility] [place] [address] PCP - [facility]03/19/24 Team Status: Inactive Member Role Status Dates Kevin Joshi MD Primary Care Provider Active Start: June 06, 2024 End: June 06, 2024Gail Ruby BAND MASTER-CAttending ProviderActiveStart: June 06, 2024 End: June 06, 2024 Team Status: Inactive Member Role Status Dates Kevin Joshi MD Primary Care Provider Active Start: June 17, 2024 End: June 17, 2024Gail Ruby , BAND MASTER-CAttending ProviderActiveStart: June 17, 2024 End: June 17, 2024Team MemberRelationshipSpecialtyStart DateEnd Date Sybil Reis MD [address] [place] [address] PCP - [facility]08/29/22 Hima Gandhi, [facility] [place] [address] [facility]03/19/24Team MemberRelationshipSpecialtyStart DateEnd Date Sybil Reis MD [address] [place] [address] PCP - [facility]08/29/22 Hima Gandhi, [facility] [place] [address] PCP - [facility]03/19/24[facility] MemberRelationshipSpecialtyStart DateEnd Date Sybil Reis MD [address] [place] [address] PCP - [facility]08/29/22 Hima Gandhi, [address] [place], [place] [address] [address] PCP - [facility]03/19/24[facility] MemberRelationshipSpecialtyStart DateEnd Date Sybil Reis MD [address] [place] [address] PCP - [facility]08/29/22 Hima Gandhi, DO [address] [place], [place] [address] [address] PCP - [facility]03/19/24Te MemberRelationshipSpecialtyStart DateEnd Date Sybil Reis MD [address] [place] [address] PCP - [facility]08/29/22 Hima Gandhi, DO [address] [place], [place] [address] [address] [facility]04/12Te MemberRelationshipSpecialtyStart DateEnd Date Sybil Reis MD [address] [place] [address] PCP - [facility]08/29/22 Hima Gandhi DO [address] [place] [address] [facility]03/19/24Team MemberRelationshipSpecialtyStart DateEnd Date Sybil Reis MD [address] [place] [address] [facility] - [facility]08/29/22 Sybil Reis MD [address] [place] [address] [facility]06/18/2411 Hima Gandhi DO [facility] [place] [address] [facility]03/19/24Team MemberRelationshipSpecialtyStart DateEnd Date Sybil Reis MD [address] [place] [address] [facility]08/29/22 Sybil Reis MD [address] [place] [address] Hima Gandhi DO [address] [place] [address] [facility]03/19/24 Goals (unrecognized section and content) Goals may [...] BE BASED ON THE PRIMARY CLINICAL RECORDS. [facility]. provides no warranty or guarantee of the accuracy or completeness of information in this document.
[2025-02-26 10:13] LABS: Age Gdln ACOG Testing Note (.); IGP, Aptima HPV, rfx 16/18,45 Note (.)
== END 2025-02-23 19:54 | disposition home or self-care (01) ==
LOC: LAB 19:53
PROVIDERS: PCP Student in an Organized Health Care Education/Training Program; Visit Provider Physician Assistant
DX: Z01.419 Encounter for gynecological examination (general) (routine) without abnormal findings (principal)
CPT/HCPCS: 87624; 88175